=== PATIENT | female | born 1950 | race Caucasian/White ===

== ENCOUNTER → 2019-09-05 | Outpatient (REF) | payer MEDICARE, OTHER ==
[2019-09-05 12:45] LABS: BASO # 0.1 10^3/uL (0.0-0.2); BASO % 0.9 % (0.0-1.0); EOS # 0.8 10^3/uL (0.0-0.5); EOS % 8.6 % (0.0-3.0); HEMATOCRIT 47.5 % (36.0-47.0); HEMOGLOBIN 15.5 g/dl (12.0-15.5); LYMPH # 4.2 10^3/uL (1.5-5.0); MEAN CORPUSCULAR HEMOGLOBIN 30.9 pg (27.0-33.0); MEAN CORPUSCULAR HGB CONC 32.6 g/dl (32.0-36.5); MEAN CORPUSCULAR VOLUME 94.6 fl (80.0-96.0); MONO % 11.2 % (0.0-5.0); NEUTROPHILS # 2.9 10^3/uL (1.5-8.5); NEUTROPHILS % 32.2 % (36.0-66.0); PLATELET COUNT, AUTOMATED 305 10^3/uL (150-450); RED BLOOD COUNT 5.02 10^6/uL (4.00-5.40)
[2019-09-05 12:53] LABS: ALBUMIN 3.6 GM/DL (3.2-5.2); ALT/SGPT 43 U/L (12-78); BILIRUBIN,TOTAL 0.7 MG/DL (0.2-1.0); BLOOD UREA NITROGEN 10 MG/DL (7-18); C REACTIVE PROTEIN QUANTITATIV 0.57 MG/DL (0.00-0.30); CALCIUM LEVEL 9.3 MG/DL (8.8-10.2); CARBON DIOXIDE LEVEL 29 MEQ/L (21-32); CHLORIDE LEVEL 110 MEQ/L (98-107); COMPLEMENT C3 118 MG/DL (90-180); COMPLEMENT C4 22 MG/DL (10-40); CREATININE FOR GFR 0.82 MG/DL (0.55-1.30); GLOMERULAR FILTRATION RATE > 60.0 (>45); GLUCOSE, FASTING 109 MG/DL (70-100); POTASSIUM SERUM 4.1 MEQ/L (3.5-5.1); SODIUM LEVEL 142 MEQ/L (136-145)
[2019-09-05 13:04] LABS: APPEARANCE, URINE HAZY (CLEAR); BACTERIA, URINE AUTO 3+ (NEGATIVE); BILIRUBIN, URINE AUTO NEGATIVE (NEGATIVE); BLOOD, URINE BLOOD NEGATIVE (NEGATIVE); COLOR, URINE AMBER (YELLOW); GLUCOSE, URINE (UA) AUTO NEGATIVE (NEGATIVE); KETONE, URINE AUTO TRACE mg/dL (NEGATIVE); LEUKOCYTE ESTERASE, URINE AUTO NEGATIVE (NEGATIVE); MUCUS, URINE SMALL (NEGATIVE); NITRITE, URINE AUTO NEGATIVE (NEGATIVE); PROTEIN, URINE AUTO NEGATIVE (NEGATIVE); RBC, URINE AUTO 1 /HPF (0-3); SPECIFIC GRAVITY URINE AUTO 1.018 (1.002-1.035); SQUAMOUS EPITHELIAL CELL UR AU 3 /HPF (0-6); UROBILINOGEN, URINE AUTO 0.2 mg/dL (0.0-2.0); WBC, URINE AUTO 2 /HPF (0-3)
[2019-09-05 13:23] LABS: ERYTHROCYTE SEDIMENTATION RATE 13 mm/hr (0-30)
[2019-09-05 14:18] LABS: HEPATITIS B SURFACE ANTIGEN NEGATIVE (NEGATIVE)
[2019-09-05 14:46] LABS: HEPATITIS C VIRUS ABY INDEX < 0.0 INDEX (<0.8)
[2019-09-09 10:10] LABS: ANA (HEP2) Positive (.); ANTI DS-DNA AB Negative (Negative); BETA-2 GLYCOPROTEIN I ABY IGA <9 (0-25); BETA-2 GLYCOPROTEIN I ABY IGG <9 (0-20); BETA-2 GLYCOPROTEIN I ABY IGM <9 (0-32); CARDIOLIPIN IGA ANTIBODY <9 APL U/mL (0-11); CARDIOLIPIN IGG ANTIBODY 15 GPL U/mL (0-14); CARDIOLIPIN IGM ANTIBODY <9 MPL U/mL (0-12); CYCLIC CITRULLINATED PEPTIDE 11 units (0-19); HEPATITIS B CORE ANTIBODY IGG Negative (Negative); RNP ANTIBODY 0.3 AI (0.0-0.9); SMITHS ANTIBODY < 0.2 AI (0.0-0.9); SSA SJOGRENS A >8.0 AI (0.0-0.9); SSB SJOGRENS B <0.2 AI (0.0-0.9)
== END ==
LOC: M SFHCRHEU 10:09
PROVIDERS: ATTEND Internal Medicine
DX: M06.9 Rheumatoid arthritis, unspecified (principal); D68.61 Antiphospholipid syndrome; M32.9 Systemic lupus erythematosus, unspecified
CPT/HCPCS: 36415; 80053; 81001; 82570; 84156; 85025; 85652; 86038; 86140; 86146; 86147; 86160; 86200; 86225; 86235; 86255; 86431; 86480; 86704; 86803; 87340; G0463

== ENCOUNTER → 2020-09-11 | Outpatient (CLI) | payer MEDICARE, OTHER ==
[~2020-09-11] MED LIST: ASCO500T PO; BUTACAP78 PO; DOCU100C16 PO; DULO1CAP5 PO; FERR32TA PO; FEXO180T58 PO; GABA-1171 PO; GABA-845 PO; HYDR200T3 PO; LISI20TA33 PO; MAGN400T3 PO; MULTCAP PO; NADO20TA PO; NO ITAB PO; OYST500T12 PO; PANT40TA29 PO; POTA540T PO; REST0.05; WARF-20 PO; WARF4TAB52 PO; XIFA550T PO
== END ==
LOC: M LABSMTC 10:20
PROVIDERS: ATTEND Anesthesiology
DX: Z01.812 Encounter for preprocedural laboratory examination (principal); Z20.822 Contact with and (suspected) exposure to COVID-19

== ENCOUNTER 2020-09-16 10:18 | Day surgery (SDC) | payer MEDICARE, OTHER ==
[~2020-09-16] VITALS: Ht 147.3 cm; Wt 67.1 kg
[~2020-09-16 10:18] MED LIST changes: +CEFUROXIME 1MG/0.1ML INTRACAMERAL INJ As Ordered ONE; +DUOVISC (0.50ML VISCOAT/0.55ML PROVISC) OPHTH KIT As Ordered ONE; +MIDAZOLAM INJ 2MG/2ML VIAL (J2250 PER 1MG) As Ordered ONE; +OFLOXACIN 0.3 % (OCUFLOX) OPTH SOL 5ML OD ONE; +PHENYLEPHRINE 2.5% OPHTH SOL 2ML OD ONE; +POVIDONE-IODINE 5% OPHTH PREP SOL 30ML As Ordered ONE; +PROPARACAINE 0.5% OPHTH SOL 15ML OD ONE; +TROPICAMIDE 1% OPHTH SOLN 2ML OD ONE; +fentaNYL 100 MCG/2 ML INJECTION (J3010) As Ordered ONE
--- OUTSIDE RECORDS SUMMARY | 2020-09-16 10:24 | CCD ---
Author Author [facility] Organization [facility] Address Unknown Phone Unavailable Care Team Providers Care Vacuum Technician Name Role Phone Mayitobreanna Venkatesh Unavailable PROBLEMS Type Condition ICD9-CM Code RAN63-[id number] Code Onset Dates Condition S tatus SNOMED Code Notes Problem Antiphospholipid antibody syndrome D68.61 Activ e 37937831 Problem Rheumatoid arthritis involvi ng multiple sites, unspecified rheumatoid factor presence M06.9 Active 374334025 Problem Trigger middle finger of left hand M65.332 Activ e 735622326 Problem History of lupus M32.9 Active 124216829 Problem Systemic lupus erythematosus , unspecified SLE type, unspecified organ involvement status M32.9 Active 44912782 Problem Primary osteoarthritis involving multiple joints M 15.0 Active 340976888 Problem Fibromyalgia M79.7 Active 133300009 Problem Pain in left shoulder M25.512 Active 09689489 Problem Other chronic pain G89.29 Active 92509602 ALLERGIES Allergen (clinical drug ingredient) Drug/Non Drug Allergy do cumented on EMR Reaction Allergy Type Onset Date Status codeine Codeine Sulfate(NDC Code:[address]-46) Anaphylaxis Drug A llergy Active diazepam Valium(NDC Code:[address]-52) contraindications Drug Markie rgy Active Sulfa (for allergy use only) Anaphylaxis Drug Allergy Active ENCOUNTERS from 1950 to 2020-07-26 Encounter Location Date Provider Diagnosis [facility] Wound Care [address] [place] [address] Jul Venkatesh Coreas IMMUNIZATIONS No Information SOCIAL HISTORY Tobacco Use: Social History Observation Description Date Details (start date - stop date) Sex Assigned At : Social History Observation Description Sex Assigned At Unknown Alcohol Screening: Question Answer Notes Did you have a drink containing alcohol in the past year? Ye s Points 1 Interpretation Negative How often did you have six or more drinks on one occas ion in the past year? Never (0 points) How many drinks did you have on a typica l day when you were drinking in the past year? 1 or 2 (0 points) How often did you have a drink containing alcohol in t he past year? Monthly or less (1 point) Tobacco Use: Question Answer Notes Are you a: never smoker REASON FOR REFERRAL No Information VITAL SIGNS No information MEDICATIONS Medication SIG (Take, Route, Frequency, Duration) Notes Start Da te End Date Status Hydroxychloroquine Sulfate 200 MG 1 tab Oral twice daily Active Ferrous Gluconate 324 (38 Fe) MG 1 tablet with water o r juice between meals Oral Once a day Active Docusate Sodium 100 MG 1 capsule as needed Oral Daily Active Oyster Shell Calcium/D 500-200 MG-UNIT 1 tablet Oral Once a day Active Vitamin C 500 MG 1 tablet Oral Once a day Active Gabapentin 400 MG 1 capsule Orally Once a day for 30 day(s) Active Lisinopril 10 MG 1 tablet Oral Once a day Active Potassium Citrate ER 5 MEQ (540 MG) 1 tablet with meals Oral Daily Active Multi-Vitamins - 1 tablet Oral Once a day Active Dexilant 60 MG 1 capsule Oral Once a day Active Acetaminophen 325 MG 1 tablet as needed Oral every 4 hrs Active Duloxetine HCl 30 MG 1 capsule Oral Once a day Active Xifaxan 550 MG 1 tablet Oral Daily A ctive Warfarin Sodium 4 MG 1 tablet Oral Once a day Active Gabapentin 100 MG 1 tablet Oral twice daily Active Magnesium Oxide 400 (240 Mg) MG 1 tablet with food Oral Once a day Active Warfarin Sodium 3 MG 1 tablet Orally M, W, F, Sa, PRICE Active Fexofenadine HCl 180 MG 1 tablet as needed Oral Once a day Active PROCEDURES No Information RESULTS No Results REASON FOR VISIT Cancel WCC Apt. MEDICAL (GENERAL) HISTORY Type Description Date Medical History Arthritis Medical History Anemia Medical History Stroke Surgical History splenectomy Surgical History hysterectomy Surgical History neck surgery Surgical History cholecystectomy Surgical History knee surgery Surgical History foot surgery Surgical History breast reduction Surgical History nose surgery Goals Section No Information Health Concerns No Information MEDICAL EQUIPMENT No Information MENTAL STATUS No Information FUNCTIONAL STATUS No Information ASSESSMENTS No Information PLAN OF TREATMENT No Information Insurance Providers Payer Name Payer Address Payer Phone Insured Name Patient Relati onship to Insured Coverage Start Date Coverage End Date MEDICARE Part A and B [address] [facility] [id number] [place] [employer] [address] [facility] [id number] [place] self
--- OUTSIDE RECORDS SUMMARY | 2020-09-16 10:24 | CCD | Continuity of Care Document ---
Author Author Viridiana PARR MD Organization Unknown Address [address] [place] [address] Phone [phone] Care Team Providers Care Bone Drier Name Role Phone Jose R Church DO AUTM [phone] Problems Active Problems Provider Date Syncope and collapse Onset: Abdominal pain Onset: Essential hypertension Onset: Prediabetes Onset: Arthritis Onset: Gastroesophageal reflux disease Onset: 0 Hearing loss Onset: CVA - Cerebrovascular accident Onset: IBS - Irritable bowel syndrome Onset: Liver disease Onset: Osteoporosis Onset: Recurrent sinusitis Onset: Urinary incontinence Onset: Right bundle branch block Delia Marquez RN, BRAZER ASSEMBLER Onset: 03/02 History of cerebrovascular accident without residual d eficits Delia Marquez RN, BRAZER ASSEM[employer]ER Onset: 03/02/2020 Hypercoagulability state Roger Parr MD Onset: 09/07/19 21 Dyspnea Roger Parr MD Onset: 09/07/2020 Type 2 diabetes mellitus Roger Parr MD Onset: 09/07/19 21 Social History Type Date Description Comments Sex Unknown Tobacco Use Start: Unknown 1 cigarette per day x 10-15 yrs ETOH Use Occasionally consumes alcohol Recreational Drug Use Denies Drug Use Tobacco Use Start: Unknown End: Patient is a former smoker Smoking Status Reviewed: 09/07/20 Patient is a former smoker Allergies, Adverse Reactions, Alerts Active Allergies Reaction Severity Comments Date Aciphex 11/03/2019 Macrobid 11/03/2019 Sulfamethoxazole / Trimethoprim 11/03/2019 Valium 11/03/2019 Levaquin 11/03/2019 Codeine 11/03/2019 Sulfamethoxazole 11/03/2019 Flurazepam 11/03/2019 Demerol 11/03/2019 Inactive Allergies NKDA 11/03/2019 Medications Active Medications SIG Qnty Indications Ordering Provide r Date Docusate Sodium 100mg Capsules 1 by mouth every day Unknown Duloxetine HCL 30mg Caps DR Part 1 by mouth every day Unknown Fexofenadine HCL 180mg Tablets 1 by mouth every day Unknown Gabapentin 100mg Capsules 1 by mouth twice a day Unknown Gabapentin 400mg Capsules 1 by mouth every day Unknown Hydroxychloroquine Sulfate 200mg T ablets 1 by mouth twice a day Unknown Lisinopril 10mg Tablets 1 by mouth every day Unknown Magnesium Oxide 400mg Tablets 1 by mouth every day Unknown Multivitamin Adult Tablets 1 by mouth every day Unknown Nadolol 20mg Tablets 1 by mouth every day Unknown Warfarin Sodium 4mg Tablets as directed Unknown Potassium Citrate ER 10Meq (1080 mg) Tablets ER 1 tablet daily Unknown Rifaximin Powder 550mg daily Unknown Calcium Carbonate-Vitamin D [id number] Tablets 1 by mouth twice a day Unknown Warfarin Sodium 5mg Tablets as directed Unknown Fish Oil 500mg Capsules 1 by mouth daily Unknown Immunizations Description No Information Available Vital Signs Date Vital Result Comment 09/07/2020 1:31pm Height 57.5 inches 4'9.50" Weight 148.00 lb BMI (Body Mass Index) 31.5 kg/m2 03/02/2020 10:16am BP Systolic 178 mmHg BP Diastolic 82 mmHg Heart Rate 80 /min Height 57.5 inches 4'9.50" Weight 159.00 lb BMI (Body Mass Index) 33.8 kg/m2 Results Description No Information Available Procedures Description No Information Available Medical Devices Description No Information Available Encounters Description No Information Available Assessments Date Code Description Provider 09/07/2020 I10 Essential (primary) hypertension Roger Parr MD 09/07/2020 I45.19 Other right bundle-branch block Roger Parr MD 09/07/2020 Z86.73 Personal history of transient ischemic attack (TIA), and cerebral infarction without residual deficits Roger Parr MD 09/07/2020 D68.61 Antiphospholipid syndrome Roger Parr MD 09/07/2020 R06.02 Shortness of breath Roger holder MD 09/07/2020 E11.9 Type 2 diabetes mellitus without complications Roger Parr MD Plan of Treatment Future Appointment(s):* 09/08/2021 1:30 pm - [place] [facility] ([id number]) at [place] Office * 11/02/2020 9:30 am - [place] [facility] ([id number]) at [place] [facility] 09/07/2020 - Roger Parr MD* I10 Essential (primary) hypertension * I45.19 Other right bundle-branch block * Z86.73 Personal history of transient ischemic attack (TIA), and cerebral infarction without residual deficits * D68.61 Antiphospholipid syndrome * R06.02 Shortness of breath * E11.9 Type 2 diabetes mellitus without complications* New Labs:* CMP W/GFR, Scheduled: 09/07/20 * Lipid Panel, Scheduled: 09/07/20 * Hepatic Function Panel 6, Scheduled: 09/07/20 * Comments:* lipid profile if abnormal will consider statins discussed with patient lose weightfollow up one year * Recommendations:* Patient is a hypertensive vascular disease hypercoagulable state on anticoagulation, diastolic noncompliance obesity status post CVA tolerating rehabilitation fairly well. I've advised and encouraged patient to do regular exercise and weight loss reduction was suggested dietary instructions were discussed. At present time she appears to be doing fairly well and recovered from artery cerebrovascular event. I've advised patient to continue same therapy. We will be seeing her back in our [place] office in 1 year lipid profile will be obtained I discussed with patient and lipid is abnormal we'll initiate statin therapy. Thank you for having us participate in cardiac care of this pleasant lady Functional Status Description No Information Available Mental Status Description No Information Available Referrals Description No Information Available
--- OUTSIDE RECORDS SUMMARY | 2020-09-16 10:24 | CCD | Continuity of Care Document ---
Author Author Viridiana COTO DO Organization Unknown Address [address] [place] [address] Phone [phone] Care Team Providers Care Manager Of Purchasing Name Role Phone Jose R Church DrM [phone] Problems Active Problems Provider Date Cervical spondylosis with myelopathy Yan Coto DO Ons et: 12/25/2019 Degeneration of cervical intervertebral disc Yan Coto DO Onset: 12/25/2019 Social History Type Date Description Comments Sex Unknown ETOH Use Occasionally consumes alcohol Tobacco Use Start: Unknown Denies Tobacco Use Recreational Drug Use Denies Drug Use Allergies, Adverse Reactions, Alerts Active Allergies Reaction Severity Comments Date Codeine 12/25/2019 Diazepam 12/25/2019 Flurazepam 12/25/2019 Levofloxacin 12/25/2019 Medications Active Medications SIG Qnty Indications Ordering Provide r Date Medrol 4mg TBPK dispense 1 pack use as directed 1units Yan Coto DO 05/03/2020 Enoxaparin Sodium 80mg/0.8ML Solution Jose R Church Dr Voltaren 1% Gel Unknown Clindamycin HCL 300mg Capsules Jose R Church Dr Aspirin 81mg Tablets DR Unknown Deep Sea Nasal [place] 0.65% Solution Unknown Ferrous Gluconate 324(38Fe) mg Tablets Unknown Dexilant 60mg Capsules DR Unknown Gabapentin 100mg Capsules Unknown Lisinopril 10mg Tablets Unknown Restasis 0.05% Emulsion Jose R Church Dr Warfarin Sodium 4mg Tablets Jose R Church Dr Amoxicillin/Clavulanate Potassium 875-125mg Tablets Jose R Church Dr Acetaminophen 325mg Tablets Unknown Butalbital/Acetaminophen/Caffeine 50-325-40mg Tablets Jose R Church Dr Docusate Sodium 100mg Capsules Jose R Chruch Dr Duloxetine HCL 30mg Caps DR Part Unknown Fexofenadine HCL 180mg Tablets Unknown Gabapentin 400mg Capsules Jose R Church Dr Hydroxychloroquine Sulfate 200mg T ablets Jose R Church Dr Lisinopril 20mg Tablets Jose R Church Dr Magnesium Oxide 400(240Mg) mg Tablets Jose R Church Dr Multi-Vitamins Tablets Jose R Church Dr Nadolol 20mg Tablets Unknown Oyster Shell Calcium/D [id number] Tablets Jose R Church Dr Pantoprazole Sodium 40mg Tablets Jose R Lowry Dr Potassium Citrate ER 5Meq (540 mg) Tablets ER Unknown Vitamin C 500mg Tablets Jose R Church Dr Warfarin Sodium 3mg Tablets Jose R Church Dr Xifaxan 550mg Tablets Jose R Church Dr Medications Administered in Office Medication SIG Qnty Indications Ordering Provider Date Injection Triamcinolone Acetonide Per 10 MG Injection Yan Coto DO 02/02/20 20 Immunizations Description No Information Available Vital Signs Date Vital Result Comment 06/21/2020 10:13am BP Systolic 122 mmHg BP Diastolic 84 mmHg Respiratory Rate 16 /min Heart Rate 56 /min Pain Level 8 05/31/2020 12:05pm Height 57 inches 4'9" Weight 160.00 lb BMI (Body Mass Index) 34.6 kg/m2 Respiratory Rate 16 /min Pain Level 4 Results Description No Information Available Procedures Date Code Description Status 06/21/2020 23911 Injection For Nerve Block, Great er Occipital Nerve Completed 02/02/2020 60552 Injection For Nerve Block, Great er Occipital Nerve Completed Medical Devices Description No Information Available Encounters Type Date Location Provider Dx Diagnosis Office Visit 05/31/2020 12:45p Main Office Yan Coto DO M54.81 Occipital neuralgia Office Visit 04/23/2020 10:15a Main Office CAR[facility] Red M54.81 Occipital neuralgia M47.12 Other spondylosis with myelo janeth, cervical region M50.30 Other cervical disc degenera tion, unsp cervical region Office Visit 02/13/2020 2:00p Main Office CARI Red M54.81 Occipital neuralgia Assessments Date Code Description Provider 07/06/2020 M54.81 Occipital neuralgia Yan posadas, DO 06/21/2020 M54.81 Occipital neuralgia Yan matta, DO 05/31/2020 M54.81 Occipital neuralgia Ronal strong, [facility] 05/31/2020 M54.81 Occipital neuralgia Yan matta, DO 04/23/2020 M54.81 Occipital neuralgia Mikael Gehr, MS, Pac 04/23/2020 M54.81 Occipital neuralgia Ronal strong, [facility] 04/23/2020 M47.12 Other spondylosis with myelopath y, cervical region Mikael Gehr, MS, Pac 04/23/2020 M47.12 Other spondylosis with myelopath y, cervical region Ronal Tucker, [facility] 04/23/2020 M50.30 Other cervical disc degeneration , unspecified cervical region Mikael Gehr, [place], Pac 04/23/2020 M50.30 Other cervical disc degeneration , unspecified cervical region Ronal Tucker [facility] 02/13/2020 M54.81 Occipital neuralgia Ronal strong, [facility] 02/02/2020 M54.81 Occipital neuralgia Yan matta, Plan of Treatment Future Appointment(s):* 11/08/2020 9:30 am - [facility] at Main Office 07/06/2020 - Yan Coto DO* M54.81 Occipital neuralgia* Comments:* 69 year old female patient presents via tele med s/p Left Occipital Block. patient reprots that she had 100%. patient states that she recently fell and hurt her left arm. patient is doing well we recommedn she f/u in 3-4 months advised to call sooner if pain or symptoms worsen.I discussed the patients diagnosis with them went over imaging and made conservative recommendations. After discussion we together with the patient decided on a plan. I explained if any changes in neurological exam or progressive worsening of symptoms including but not limited to bowel and bladder they are to return sooner.I, Venkatesh Wilson, scribing for and in the presence of ALBERTINA Wyman. Functional Status Description No Information Available Mental Status Description No Information Available Referrals Description No Information Available
--- OUTSIDE RECORDS SUMMARY | 2020-09-16 10:24 | CCD ---
Author Author [facility] Organization [facility] Address Unknown Phone Unavailable Care Team Providers Care Rib Knitter Name Role Phone Mayitobreanna Venkatesh Unavailable PROBLEMS Type Condition ICD9-CM Code [id number] Code Onset Dates Condition S tatus SNOMED Code Notes Problem Antiphospholipid antibody syndrome D68.61 Activ e 99606231 Problem Rheumatoid arthritis involvi ng multiple sites, unspecified rheumatoid factor presence M06.9 Active 556218040 Problem Trigger middle finger of left hand M65.332 Activ e 088602819 Problem History of lupus M32.9 Active 731369191 Problem Systemic lupus erythematosus , unspecified SLE type, unspecified organ involvement status M32.9 Active 62268387 Problem Primary osteoarthritis involving multiple joints M 15.0 Active 107590870 Problem Fibromyalgia M79.7 Active 053724091 Problem Pain in left shoulder M25.512 Active 47453417 Problem Other chronic pain G89.29 Active 84476165 ALLERGIES Allergen (clinical drug ingredient) Drug/Non Drug Allergy do cumented on EMR Reaction Allergy Type Onset Date Status codeine Codeine Sulfate(NDC Code:[address]-94) Anaphylaxis Drug A llergy Active diazepam Valium(NDC Code:[address]-06) contraindications Drug Markie rgy Active Sulfa (for allergy use only) Anaphylaxis Drug Allergy Active ENCOUNTERS from 1950 to 2020-07-16 Encounter Location Date Provider Diagnosis [facility] Wound Care [address] [place] [address] Jul Venkatesh Coreas IMMUNIZATIONS No Information SOCIAL [...] Information RESULTS No Results REASON FOR VISIT VOLUNTEER RECRUITMENT COORDINATOR referral [facility] MEDICAL (GENERAL) HISTORY Type Description Date Medical [...] Information ASSESSMENTS No Information PLAN OF TREATMENT Next Appt Details Provider Name:Venkatesh Coreas, 01:00:00 PM, [address] [place], [address], Insurance Providers Payer Name Payer Address Payer Phone Insured Name Patient Relati onship to Insured Coverage Start Date Coverage End Date MEDICARE Part A and B [address] [facility] [id number] [place] [employer] [address] [facility] [phone] [place] self
--- OUTSIDE RECORDS SUMMARY | 2020-09-16 10:24 | CCD ---
Author Author [facility] Organization [facility] Address Unknown Phone Unavailable Care Team Providers Care Routing Clerk Name Role Phone Mayitobreanna Venkatesh Unavailable PROBLEMS Type Condition ICD9-CM Code ERV01-WD Code Onset Dates Condition S tatus SNOMED Code Notes Problem Antiphospholipid antibody syndrome D68.61 Activ e 62467341 Problem Rheumatoid arthritis involvi ng multiple sites, unspecified rheumatoid factor presence M06.9 Active 551988310 Problem Trigger middle finger of left hand M65.332 Activ e 372405866 Problem History of lupus M32.9 Active 628763434 Problem Systemic lupus erythematosus , unspecified SLE type, unspecified organ involvement status M32.9 Active 76641468 Problem Primary osteoarthritis involving multiple joints M 15.0 Active 275134091 Problem Fibromyalgia M79.7 Active 287601458 Problem Pain in left shoulder M25.512 Active 39020539 Problem Other chronic pain G89.29 Active 50245729 ALLERGIES Allergen (clinical drug ingredient) Drug/Non Drug Allergy do cumented on EMR Reaction Allergy Type Onset Date Status codeine Codeine Sulfate(NDC Code:[address]-64) Anaphylaxis Drug A llergy Active diazepam Valium(NDC Code:[address]-64) contraindications Drug Markie rgy Active Sulfa (for allergy use only) Anaphylaxis Drug Allergy Active ENCOUNTERS from 1950 to 2020-07-16 Encounter Location Date Provider Diagnosis [facility] Wound Care [address] [place] [address] Jul Venkatesh Coreas IMMUNIZATIONS No Information SOCIAL [...] Information RESULTS No Results REASON FOR VISIT Inital Apt. MEDICAL (GENERAL) HISTORY Type Description Date [...] Details Provider Name:Venkatesh Coreas, 01:00:00 PM, [address] [place], [address], Insurance Providers Payer Name Payer Address Payer Phone Insured Name Patient Relati onship to Insured Coverage Start Date Coverage End Date MEDICARE Part A and B [address] [facility] [phone] [place] [employer] [address] [facility] [phone] [place]
--- OUTSIDE RECORDS SUMMARY | 2020-09-16 10:24 | CCD | Continuity of Care Document ---
Author Author Viridiana COTO DO Organization Unknown Address [address] [place] [address] Phone [phone] Care Team Providers Care Tube Depatcher Name Role Phone Jose R Church DrM [phone] Problems Active Problems Provider Date Cervical spondylosis [...] 81mg Tablets DR Unknown Deep Sea Nasal [place] 0.65% Solution Unknown Ferrous Gluconate 324(38Fe) mg Tablets Unknown Dexilant 60mg Capsules DR Unknown Gabapentin 100mg Capsules Unknown Lisinopril 10mg Tablets Unknown Restasis 0.05% Emulsion Jose R Church Dr Warfarin Sodium 4mg Tablets Jose R Church Dr Amoxicillin/Clavulanate Potassium 875-125mg Tablets Jose R Church Dr Acetaminophen 325mg Tablets Unknown Butalbital/Acetaminophen/Caffeine 50-325-40mg Tablets Jose R Church Dr Docusate Sodium 100mg Capsules Jose R Church Dr Duloxetine HCL 30mg Caps DR Part Unknown Fexofenadine HCL 180mg Tablets Unknown Gabapentin 400mg Capsules Jose R Church Dr Hydroxychloroquine Sulfate 200mg T ablets Jose R Church Dr Lisinopril 20mg Tablets Jose R Church Dr Magnesium Oxide 400(240Mg) mg Tablets Jose R Church Dr Multi-Vitamins Tablets Jose R Church Dr Nadolol 20mg Tablets Unknown Oyster Shell Calcium/D [id number]-[id number] Tablets Jose R Church Dr Pantoprazole Sodium [...] Available Procedures Date Code Description Status 06/21/2020 05840 Injection For Nerve Block, Great er Occipital Nerve Completed 02/02/2020 86575 Injection For Nerve Block, Great er Occipital Nerve Completed Medical Devices Description No Information Available Encounters Type Date Location Provider Dx Diagnosis Office Visit 07/06/2020 10:00a Main Office Yan Coto, DO M54.81 Occipital neuralgia Office Visit 05/31/2020 12:45p Main Office Yan Coto, DO M54.81 Occipital neuralgia Office Visit 04/23/2020 10:15a Main Office Ronal Tucker [facility] M54.81 Occipital neuralgia M47.12 Other spondylosis with myelo janeth, cervical region M50.30 Other cervical disc degenera tion, unsp cervical region Office Visit 02/13/2020 2:00p Main Office Ronal Tucker [facility] M54.81 Occipital neuralgia Assessments Date Code Description Provider 07/06/2020 M54.81 Occipital neuralgia Mikael Gehr, [place], Pac 07/06/2020 M54.81 Occipital neuralgia Yan Karson posadas, DO 06/21/2020 M54.81 Occipital neuralgia Yan Karson posadas, DO 05/31/2020 M54.81 Occipital neuralgia Ronal strong, [facility] 05/31/2020 M54.81 Occipital neuralgia Yan Karson matta, DO 04/23/2020 M54.81 Occipital neuralgia Mikael Gehr, MS, Pac 04/23/2020 M54.81 Occipital neuralgia Ronal strong, [facility] 04/23/2020 M47.12 Other spondylosis with myelopath y, cervical region Mikael Gehr, MS, Pac 04/23/2020 M47.12 Other spondylosis with myelopath y, cervical region Ronal Tucker, [facility] 04/23/2020 M50.30 Other cervical disc degeneration , unspecified cervical region Mikael Gehr, [place], Pac 04/23/2020 M50.30 Other cervical disc degeneration , unspecified cervical region Ronal Tucker, [facility] 02/13/2020 M54.81 Occipital neuralgia Ronal strong, [facility] 02/02/2020 M54.81 Occipital neuralgia Yan Karson posadas, DO Plan of Treatment Future Appointment(s):* 11/08/2020 9:30 [...]
--- OUTSIDE RECORDS SUMMARY | 2020-09-16 10:25 | CCD | Continuity of Care Document ---
Author [facility] Address [address] [place] [address] Phone Support Name Relationship Address [place] [address] [place] [address] CORY BAGLEY PRS [address] [address] Apollo Valente PRS [address] [place] [address] Master Muñoz PRS [address] [place] [address] Love, Ross PRS [facility] [place] [address] EstephaniaDenisse kilpatrick PRS [address] [place] [address] YAN FERMIN PRS [facility] [place] [address] Anum Bender PRS [address] [place] [address] DAGOBERTO PARR PRS [address] [place] [address] [place] [address] Apollo Varela PRS [address] [place] [address] Allergies, Adverse Reactions, Alerts Allergen Type Severity Reaction Last Updated Verified Status codeine Allergy Unknown June 27, 2020 5:23pm Yes Active diazepam Allergy Unknown June 27, 2020 5:23pm Yes Active flurazepam Allergy Unkno wn June 27, 2020 5:23pm Yes Active levofloxacin Allergy Unk nown June 27, 2020 5:23pm Yes Active meperidine Allergy Unkno wn June 27, 2020 5:23pm Yes Active nitrofurantoin Allergy U nknown June 27, 2020 5:23pm Yes Active rabeprazole Allergy Unkn own June 27, 2020 5:23pm Yes Active Sulfa (Sulfonamide Antibiotics) Allergy Unknown June 27, 2020 5:23pm Yes Active Medications Medication Status Dose Units Route Directions Qty Days Start Date End Date Instructions tuberculin PPD Discontinued 0.1 ML ID 1 Time/Once 0.1 February 18, 2019 9:33am February 18, 2019 9:33am Aspirin (Adult Aspirin Regimen) 81 mg ta blet,delayed release (DR/EC) Active 81 MG PO daily February 18, 2019 9:53am Gabapentin Discontinued 400 MG PO daily February 18, 2019 9:53am March 10, 2019 8:24am Calcium Carbonate Discontinued 500 MG PO daily February 18, 2019 9:55am July 10, 2019 4:06pm Ferrous Gluconate Discontinued 324 MG PO daily February 18, 2019 10:22am February 20, 2020 12:04pm Hydroxychloroquine Discontinued 200 MG PO daily February 18, 2019 10:22am June 24, 2019 10:57am Lisinopril Discontinued 10 MG PO daily February 18, 2019 10:23am May 29, 2019 10:32am Nadolol Discontinued 20 MG PO daily February 18, 2019 10:24am September 04, 2019 1:25pm Fexofenadine Discontinued 180 MG PO Q24H February 18, 2019 10:26am August 12, 2019 11:32am Dexlansoprazole Discontinued 60 MG PO daily February 18, 2019 10:33am October 21, 2019 1:40pm Potassium Citrate Discontinued 5 MEQ PO daily February 18, 2019 10:34am August 12, 2019 11:32am Rifaximin Discontinued 5 50 MG PO 2 Times Per Day February 18, 2019 10:35am April 21, 2019 10:39am Hydroxychloroquine Discontinued 200 MG PO daily 90 June 24, 2019 10:57am June 24, 2019 11:36am Hydroxychloroquine Discontinued 200 MG PO 2 Times Per Day June 24, 2019 11:36am August 12, 2019 11:30am Afluria Qd (3yr up)(PF) (flu vac [id number] 36mos up(PF)) Discontinued 0.5 ML IM 1 Time/Once 0.5 May 12, 2019 11:18am May 5:41pm Lisinopril Active 20 MG PO daily October 21, 2019 1:39pm Pantoprazole (Protonix) 40 mg tablet,delayed release ( DR/EC) Active 40 MG PO daily October 21, 2019 1:40pm Amoxicillin-Pot Clavulanate (Augmentin) 875-125 mg tab let Discontinued 1 TAB PO 2 Times Per Day October 28, 2019 1:46pm November 25, 2019 9:01am Aifzeltxjd-Uwhdybcgntrvm-Dzuz Discontinued 1 CAP PO Q12H November 25, 2019 9: 00am February 20, 2020 12:04pm Afluria Qd (3yr up)(PF) (flu vac [id number] 36mos up(PF)) Discontinued 0.5 ML IM 1 Time/Once 0.5 June 14, 2020 10:09am June 14, 2020 3:39pm Duloxetine (Cymbalta) 30 mg capsule,delayed release(DR /EC) Active 30 MG PO daily June 14, 2020 10:15am Rifaximin Discontinued 5 50 MG PO Once Per Day June 14, 2020 10:16am June 14, 2020 10:35am Fexofenadine Active 180 MG PO Q24H June 14, 2020 10:34am Hydroxychloroquine Active 200 MG PO 2 Times Per Day June 14, 2020 10:34am Nadolol Active 20 MG PO daily June 14, 2020 10:34am Potassium Citrate Active 5 MEQ PO daily June 14, 2020 10:34am Rifaximin Active 550 MG PO Once Per Day June 14, 2020 10:34am Mupirocin Active 1 APPLIC TOP 2 Times Per Day June 24, 2020 12:31pm apply to outer elbow bid x 1 week Adhesive Bandage (Telfa Amd) 4 X 5 " bandage Active 0 .ROUTE .MEDSUPPLY June 24, 2020 12:31pm As directed- appl y to wound bid until healed with ointment Gauze Bandage (Band-Aid Rolled Gauze) 2 X 2.5 "-yard b andage Active 0 .ROUTE .MEDSUPPLY June 24, 2020 12:32pm As direc mariana- apply to affected area bid until healed Adhesive Tape Active 0 .ROUTE .MEDSUPPLY June 24, 2020 12:34pm As directed Amoxicillin-Pot Clavulanate Active 1 TAB PO 2 Times Per Day June 24, 2020 12:35pm Methylprednisolone (Medrol (Jarred)) 4 mg tablets,dose pa ck Discontinued 0 PO .COMPLEX May 02, 2020 9:02am June 14, 2020 10:15am orally per package directions Warfarin (Coumadin) 3 mg tablet Disc ontinued 3 MG PO December 23, 2018 8:28a m September 29, 2019 2:59pm Warfarin (Coumadin) 4 mg tablet Disc ontinued 4 MG PO ev eris other day January 02, 2019 7:55 am May 06, 2019 9:27am take every other day Cyclosporine (Restasis) 0.05 % dropperette Discontinued 1 DROPS BOTH EYES Q12H 60 January 10, 2019 6:41am April 19, 2020 3:33pm Please dispense individual doseages Duloxetine (Cymbalta) 30 mg capsule,delayed release(DR /EC) Discontinued 30 MG PO daily 30 February 12, 2019 4:20pm February 13, 2019 9:38am Duloxetine (Cymbalta) 30 mg capsule,delayed release(DR /EC) Discontinued 30 MG PO daily February 13, 2019 9:37am April 21, 2019 10:39am Warfarin (Coumadin) 1 mg tablet Disc ontinued 1 MG PO February 21, 2019 6:00 pm December 25, 2019 6:03pm Gabapentin Discontinued 100 MG PO 2 Times Per Day February 27, 2019 9:48am December 25, 2019 6:03pm Gabapentin Discontinued 400 MG PO daily 90 March 10, 2019 8:22am July 10, 2019 4:06pm Acetaminophen (Tylenol) 325 mg tablet Active 350 - 650 MG PO At Bedtime March 10, 2019 8:22am Clindamycin Hcl Discontinued 300 MG PO Four Times a Day 12 March 17, 2019 5 :18pm April 21, 2019 10:36am Duloxetine (Cymbalta) 30 mg capsule,delayed release(DR /EC) Discontinued 30 MG PO daily April 21, 2019 10:36am June 14, 2020 10:17am Rifaximin Discontinued 5 50 MG PO Once Per Day April 21, 2019 10:37am June 14, 2020 10:17am Magnesium Oxide Discontinued 400 MG PO daily April 21, 2019 10:37am April 19, 2020 3:33pm Docusate Sodium (Colace) 100 mg capsule Active 100 MG PO daily April 21 10:38am Multivitamin Active 1 TAB PO daily April 21, 2019 10:38am Warfarin (Coumadin) 4 mg tablet Disc ontinued 4 MG PO On ce Per Day May 06, 2019 9 :26am December 25, 2019 6:03pm Lisinopril Discontinued 10 MG PO daily May 29, 2019 10:31am October 21, 2019 1:39pm Calcium Carbonate Discontinued 500 MG PO daily July 10, 2019 4:05pm July 15, 2019 10:18am Gabapentin Discontinued 400 MG PO daily July 10, 2019 4:05pm December 25, 2019 6:03pm Calcium Carbonate-Vitamin D3 Active 1 TAB PO daily July 15, 2019 10:18am Hydroxychloroquine Discontinued 200 MG PO 2 Times Per Day August 12, 2019 11:30am June 14, 2020 10:35am Fexofenadine Discontinued 180 MG PO Q24H August 12, 2019 11:31am June 14, 2020 10:35am Potassium Citrate Discontinued 5 MEQ PO daily August 12, 2019 11:32am June 14, 2020 10:35am Nadolol Discontinued 20 MG PO daily September 04, 2019 1:25pm June 14, 2020 10:35am Ascorbate Calcium (Vitamin C) Active 500 MG PO daily September 25, 2019 6:49pm Warfarin (Coumadin) 3 mg tablet Disc ontinued 3 MG PO da jayy September 29, 2019 2:59pm October 22, 2019 2:52pm Warfarin (Coumadin) 4 mg tablet Active 4 MG PO Once Per Day December 25, 2019 6:01 pm Warfarin (Coumadin) 1 mg tablet Disc ontinued 1 MG PO As Directed (Daily) December 25, 2019 6:01pm December 26, 2019 6:21am Warfarin Discontinued 5 MG PO As Directed (Daily) 9 0 December 25, 2019 6:01pm December 26, 2019 6:21am Gabapentin Active 100 MG PO 2 Times Per Day December 25, 2019 6:02pm Gabapentin Active 400 MG PO daily December 25, 2019 6:03pm Warfarin Discontinued 5 MG PO As Directed (Daily) 9 December 26, 2019 6:20am March 22, 2020 3:12pm Warfarin (Coumadin) 1 mg tablet Active 1 MG PO Once Per Day December 26, 2019 6:20 am Enoxaparin (Lovenox) 80 mg/0.8 mL syringe Discontinued 70 MG SQ Q 12H 9.8 7 January 23, 2020 5: 04pm January 29, 2020 11:51am Enoxaparin (Lovenox) 80 mg/0.8 mL syringe Discontinued 70 MG SQ Q 12H 4.2 3 January 29, 2020 11 :51am January 31, 2020 11:00pm Warfarin Active 5 MG PO daily March 22, 2020 3:11pm Magnesium Oxide Active 4 00 MG PO daily April 19, 2020 3:33pm Cyclosporine (Restasis) 0.05 % dropperette Active 1 DROPS BOTH EYES Q12H 60 April 19, 2020 3:33pm Please dispense individu al doseages Cholecalciferol (Vitamin D3) Active 125 MCG PO daily June 14, 2020 5:16pm Problems Active Problems Medical Problem Onset Date Status Systemic lupus erythematosus, unspecified Active Rheumatoid arthritis A ctive Diabetes mellitus type 2 in obese Active History of IBS Active History of cervical spinal arthrodesis Active Antiphospholipid antibody syndrome Active Laceration Active Hearing deficit Active Essential (primary) hypertension Active Osteoporosis Active [place] Active senior living current use of anticoagulant Active Fibromyalgia Active Unspecified cirrhosis of liver Active Lymphocytosis Active Abnormal glucose Activ e Mild intermittent asthma Active Recurrent sinusitis Ac tive Active Acquired absence of spleen Active Abrasion Active GERD (gastroesophageal reflux disease) Active History of CVA (cerebrovascular accident) Active Falls Active Inactive/Resolved Problems Medical Problem Onset Date Status Prediabetes Resolved Procedures Procedure Date Performed Status CT Head without contrast June 272019 6:17pm completed CT Maxillofacial area w/o cont Novem 2019 6:17pm completed Xray Elbow complete LT June 6:17pm completed XRAY HIP LT 2-3 VIEW W/PELVIS Novemb er 2019 6:17pm completed XRAY HIP LT 2-3 VIEW W/PELVIS Novemb er 2019 11:57am completed Xray Elbow AP/LAT LT June 15, 2020 12:39pm completed Xray Foot Complete RT March 30, 2 020 2:08pm completed MRI Cervical without contrast December 302019 2:16pm completed Xray Cervical spine complete November 052019 10:05am completed CT Head without contrast October 28, 2019 11:59am completed CT C-Spine without contrast October 272019 11:59am completed Xray Hand Complete RT September 08, 2019 2:18pm completed Xray Hand Complete LT September 08, 2019 2:18pm completed Xray Shoulder complete LT September 082019 2:18pm completed Xray Knee Comp 4 or more RT September 08, 2019 2:18pm completed Xray Knee comp 4 or more LT ua2019 2:18pm completed Xray Lumbar spine complete September 08, 2019 2:17pm completed Relevant Diagnostic Tests and/or Laboratory Data Laboratory Results Test Date/Time Result Interpretation Reference Range Result Comment Performing Site INR International Normalized Ratio N ovember 2019 5:51pm 2.4 INR International Normalized Ratio N ovember 2019 8:45pm 3.8 INR International Normalized Ratio N ovember 2019 8:51am 3.5 INR International Normalized Ratio O ctober 2019 5:27pm 3.5 INR International Normalized Ratio O ctober 2019 7:39am 3.2 INR International Normalized Ratio O ctober 2019 7:45pm 4.1 INR International Normalized Ratio O ctober 2019 2:50pm 3.4 INR International Normalized Ratio O ctober 2019 8:14am 3.9 INR International Normalized Ratio S eptember 2019 2:13pm 5.5 INR International Normalized Ratio S eptember 2019 8:57am 3.5 INR International Normalized Ratio S eptember 2019 9:22am 4.0 INR International Normalized Ratio S eptember 2019 12:00pm 3.2 INR International Normalized Ratio A ugust 2019 7:14am 3.7 INR International Normalized Ratio A ugust 2019 1:21pm 3.0 INR International Normalized Ratio A ugust 2019 4:33pm 3.9 INR International Normalized Ratio A ugust 2019 7:22pm 3.1 INR International Normalized Ratio J mireille 2019 10:51am 2.4 INR International Normalized Ratio J mireille 2019 5:20pm 2.8 INR International Normalized Ratio J mireille 2019 7:37am 3.2 INR International Normalized Ratio J mireille 2019 12:33pm 2.8 INR International Normalized Ratio J une 2019 8:40am 1.1 INR International Normalized Ratio J une 2019 7:53am 1.4 INR International Normalized Ratio J une 2019 8:53am 3.2 INR International Normalized Ratio J une 2019 3:59pm 1.5 INR International Normalized Ratio J une 2019 8:27am 2.7 INR International Normalized Ratio J une 2019 8:58am 2.8 INR International Normalized Ratio M ay 2019 9:36am 1.8 INR International Normalized Ratio M ay 2019 7:35pm 1.5 INR International Normalized Ratio A pril 2019 10:44am 1.4 INR International Normalized Ratio A pril 2019 7:20pm 2.6 INR International Normalized Ratio A pril 2019 9:47am 3.1 INR International Normalized Ratio A pril 2019 7:53am 2.7 INR International Normalized Ratio M arch 2019 8:34am 3.5 INR International Normalized Ratio M arch 2019 7:47am 2.6 INR International Normalized Ratio M arch 2019 7:57am 2.3 INR International Normalized Ratio M arch 2019 11:17am 2.1 INR International Normalized Ratio F ebruary 2019 4:24pm 2.1 INR International Normalized Ratio F ebruary 2019 2:55pm 2.1 INR International Normalized Ratio F ebruary 2019 3:58pm 2.2 INR International Normalized Ratio F ebruary 2019 2:06pm 3.7 INR International Normalized Ratio J anuary 2019 8:48am 3.5 INR International Normalized Ratio J anuary 2019 7:43am 2.6 Capillary INR August 15, 2019 4:08pm 3.4 Capillary INR August 07, 2019 4:22pm 3.9 Capillary INR August 01, 2019 9:25am 3.3 Capillary INR July 26, 2019 10:01am 3.3 Capillary INR July 19, 2019 6:42pm 3.3 Capillary INR July 10, 2019 8:20pm 3.1 Capillary INR July 04, 2019 9:36am 2.7 Glucose Level March 08, 2020 10:35am 114 White Blood Count June 11, 2020 11:35am 9.2 10e3/uL 4.45-10.71 [facility], [address] [place] [address] White Blood Count May 10, 2020 11:50a m 14.1 10e3/uL 4.45-10.71 [facility], [address] [place] [address] White Blood Count December 17, 2019 11:22am 10.9 10e3/uL 4.45-10.71 [facility], [address] [place] [address] White Blood Count November 24, 2019 8:21am 8.8 10e3/uL 4.45-10.71 [facility], [address] [place] [address] White Blood Count November 21, 2019 2:36pm 10.1 10e3/uL 4.45-10.71 [facility], [address] [place] [address] White Blood Count October 22, 2019 3:45pm 14.4 10e3/uL 4.45-10.71 [facility], [address] [place] [address] Red Blood Count June 11, 2020 11:35am 4.74 10e6/uL 4.20-5.40 [facility], [address] [place] [address] Red Blood Count May 10, 2020 11:50am 4.64 10e6/uL 4.20-5.40 [facility], [address] [place] [address] Red Blood Count December 17, 2019 11:22am 4.56 10e6/uL 4.20-5.40 [facility], [address] [place] [address] Red Blood Count November 24, 2019 8:21am 4.39 10e6/uL 4.20-5.40 [facility], [address] [place] [address] Red Blood Count November 21, 2019 2:36pm 4.50 10e6/uL 4.20-5.40 [facility], [address] [place] [address] Red Blood Count October 22, 2019 3:45pm 5.04 10e6/uL 4.20-5.40 [facility], [address] [place] [address] Hemoglobin June 11, 2020 11:35am 14.6 g/dL 10.7-15.4 [facility], [address] [place] [address] Hemoglobin May 10, 2020 11:50am 14.2 g/dL 10.7-15.4 [facility], [address] [place] [address] Hemoglobin December 17, 2019 11:22am 14.5 g/dL 10.7-15.4 [facility], [address] [place] [address] Hemoglobin November 24, 2019 8:21am 14.0 g/dL 10.7-15.4 [facility], [address] [place] [address] Hemoglobin November 21, 2019 2:36pm 14.2 g/dL 10.7-15.4 [facility], [address] [place], [place] [id number] Hemoglobin October 22, 2019 3:45pm 15.9 g/dL 10.7-15.4 [facility], [address] [place], [place] [id number] Hematocrit June 11, 2020 11:35am 44.6 % 37-47 [facility], [address] [place] [address] Hematocrit May 10, 2020 11:50am 42.5 % 37-47 [facility], [address] [place] [address] Hematocrit December 17, 2019 11:22am 43.5 % 37-47 [facility], [address] [place] [address] Hematocrit November 24, 2019 8:21am 41.1 % 37-47 [facility], [address] [place] [address] Hematocrit November 21, 2019 2:36pm 42.1 % 37-47 [facility], [address] [place] [address] Hematocrit October 22, 2019 3:45pm 47.4 % 37-47 [facility], [address] [place], [place] [id number] Mean Corpuscular Volume June 11:35am 94.1 fl 80[facility], [address] [place] [address] [id number] Mean Corpuscular Volume May 10, 2020 11:50am 91.6 fl 80[facility], [address] [place] [address] [id number] Mean Corpuscular Volume December 16 11:22am 95.4 fl 80[facility], [address] [place] [address] 90554 Mean Corpuscular Volume November 24, 2019 8:21am 93.6 fl 80[facility], [address] [place] [address] 81753 Mean Corpuscular Volume November 21, 2019 2:36pm 93.6 fl 80[facility], [address] [place] [address] [id number] Mean Corpuscular Volume October 22, 2019 3:45pm 94.0 fl [facility], [address] [place] [address] 24141 Mean Corpuscular Hemoglobin June 11, 2020 11:35am 30.8 pg 27-31 [facility], [address] [place] [address] 08356 Mean Corpuscular Hemoglobin May 10, 2020 11:50am 30.6 pg 27-31 [facility], [address] [place] [address] 42939 Mean Corpuscular Hemoglobin December 11:22am 31.8 pg 27-31 [facility], [address] [place] [address] 40559 Mean Corpuscular Hemoglobin November 232019 8:21am 31.9 pg 27-31 [facility], [address] [place] [address] 43506 Mean Corpuscular Hemoglobin November 202019 2:36pm 31.6 pg 27-31 [facility], [address] [place] [address] [id number] Mean Corpuscular Hemoglobin October 212019 3:45pm 31.5 pg 27-31 [facility], [address] [place] [address] [id number] Mean Corpuscular Hemoglobin Concent June 11, 2020 11:35am 32.7 g/dl 33-37 [facility], [address] [place] [address] [id number] Mean Corpuscular Hemoglobin Concent May 10, 2020 11:50am 33.4 g/dl 3337 [facility], [address] [place] [address] Mean Corpuscular Hemoglobin Concent December 17, 2019 11:22am 33.3 g/dl 37 [facility], [address] [place] [address] Mean Corpuscular Hemoglobin Concent November 24, 2019 8:21am 34.1 g/dl [address] [facility], [address] [place] [address] Mean Corpuscular Hemoglobin Concent November 21, 2019 2:36pm 33.7 g/dl [address] [place] [address] LABORATORY, [address] [place] [address] Mean Corpuscular Hemoglobin Concent October 22, 2019 3:45pm 33.5 g/dl [facility], [address] [place] [address] Red Cell Distribution Width June 11, 2020 11:35am 16 % 11-15 [facility], [address] [place] [address] Red Cell Distribution Width May 10, 2020 11:50am 16 % 11-15 [facility], [address] [place] [address] Red Cell Distribution Width December 11:22am 16 % 11-15 [facility], [address] [place] [address] Red Cell Distribution Width November 232019 8:21am 16 % 11-15 [facility], [address] [place] [address] Red Cell Distribution Width November 202019 2:36pm 16 % 11-15 [facility], [address] [place] [address] Red Cell Distribution Width October 212019 3:45pm 16 % 11-15 [facility], [address] [place] [address] Platelet Count June 11, 2020 11:35am 329 10e3/ul 130-472 [facility], [address] [place] [address] Platelet Count May 10, 2020 11:50am 363 10e3/ul 130-472 [facility], [address] [place] [address] Platelet Count December 17, 2019 11:22am 289 10e3/ul 130-472 [facility], [address] [place] [address] Platelet Count November 24, 2019 8:21am 304 10e3/ul 130-472 [facility], [address] [place] [address] [id number] Platelet Count November 21, 2019 2:36pm 303 10e3/ul 130-472 [facility], [address] [place] [address] [id number] Platelet Count October 22, 2019 3:45pm 280 10e3/ul 130-472 [facility], [address] [place] [address] 35707 Mean Platelet Volume June 11 020 11:35am 10.3 fl 9.1-13.1 [facility], [address] [place] [address] Mean Platelet Volume May 10 11:50am 10.4 fl 9.1-13.1 [facility], [address] [place] [address] Mean Platelet Volume December 17, 2019 11:22a m 10.9 fl 9.1-13.1 [facility], [address] [place] [address] [id number] Mean Platelet Volume November 23 0 8:21am 11.1 fl 9.1-13.1 [facility], [address] [place] [address] 42289 Mean Platelet Volume November 20 0 2:36pm 10.5 fl 9.1-13.1 [facility], [address] [place] [address] Mean Platelet Volume October 21 0 3:45pm 10.7 fl 9.1-13.1 [facility], [address] [place] [address] [id number] Neutrophils (%) (Auto) June 11, 2020 11:35am 31.9 % [address] [place] [address] LABORATORY, [address] [place] [address] [id number] Neutrophils (%) (Auto) May 10, 2020 11:50am 51.9 % [address] [facility], [address] [place] [address] [id number] Neutrophils (%) (Auto) December 16 0 11:22am 31.6 % [address] [place] [address] LABORATORY, [address] [place] [address] [id number] Neutrophils (%) (Auto) November 23, 020 8:21am 36.7 % [address] [place] [address] LABORATORY, [address] [place] [address] [id number] Neutrophils (%) (Auto) November 20, 020 2:36pm 31.8 % [address] [place] [address] LABORATORY, [address] [place] [address] [id number] Neutrophils (%) (Auto) October 21, 020 3:45pm 57.6 % 41-77 [facility], [address] [place] [address] 12960 Absolute Neutrophil June 11 11:35am 2.9 # 1.7-7.6 [facility], [address] [place] [address] 47069 Absolute Neutrophil May 10 0 11:50am 7.3 # 1.7-7.6 [facility], [address] [place] [address] Absolute Neutrophil December 17, 2019 11:22am 3.4 # 1.7-7.6 [facility], [address] [place] [address] Absolute Neutrophil November 24, 2019 8:21a m 3.2 # 1.7-7.6 [facility], [address] [place] [address] [id number] Absolute Neutrophil November 21, 2019 2:36p m 3.2 # 1.7-7.6 [facility], [address] [place] [address] Absolute Neutrophil October 22, 2019 3:45p m 8.3 # 1.7-7.6 [facility], [address] [place] [address] [id number] Lymphocytes (%) (Auto) June 11, 2020 11:35am 50.4 % 14-46 [facility], [address] [place] [address] [id number] Lymphocytes (%) (Auto) May 10, 2020 11:50am 33.3 % 14-46 [facility], [address] [place] [address] Lymphocytes (%) (Auto) December 16 0 11:22am 50.2 % 14-46 [facility], [address] [place] [address] [id number] Lymphocytes (%) (Auto) November 23 8:21am 41.0 % 14-46 [facility], [address] [place] [address] Lymphocytes (%) (Auto) November 20 020 2:36pm 47.7 % 14-46 [facility], [address] [place] [address] [id number] Lymphocytes (%) (Auto) October 21 020 3:45pm 27.0 % 14-46 [facility], [address] [place] [address] [id number] Lymphocytes # (Auto) June 11, 020 11:35am 4.6 # 0.6-4.6 [facility], [address] [place] [address] [id number] Lymphocytes # (Auto) May 10 11:50am 4.7 # 0.6-4.6 [facility], [address] [place] [address] 55529 Lymphocytes # (Auto) December 17, 2019 11:22a m 5.5 # 0.6-4.6 [facility], [address] [place] [address] 23512 Lymphocytes # (Auto) November 23 0 8:21am 3.6 # 0.6-4.6 [facility], [address] [place] [address] [id number] Lymphocytes # (Auto) November 20 0 2:36pm 4.8 # 0.6-4.6 [facility], [address] [place] [address] 85294 Lymphocytes # (Auto) October 21 0 3:45pm 3.9 # 0.6-4.6 [facility], [address] [place] [address] 43583 Monocytes (%) (Auto) June 11, 020 11:35am 11.9 % 4-12 [facility], [address] [place] [address] [id number] Monocytes (%) (Auto) May 10 11:50am 13.1 % 4-12 [facility], [address] [place] [address] 53871 Monocytes (%) (Auto) December 17, 2019 11:22a m 12.0 % 4-12 [facility], [address] [place] [address] [id number] Monocytes (%) (Auto) November 23 0 8:21am 11.4 % 4-12 [facility], [address] [place] [address] [id number] Monocytes (%) (Auto) November 20 0 2:36pm 10.8 % 4-12 [facility], [address] [place] [address] [id number] Monocytes (%) (Auto) October 21 0 3:45pm 8.4 % 4-12 [facility], [address] [place] [address] [id number] Monocytes # June 11, 2020 11:35am 1.1 # 0.2-1.2 [facility], [address] [place] [address] 91006 Monocytes # May 10, 2020 11:50am 1.9 # 0.2-1.2 [facility], [address] [place] [address] [id number] Monocytes # December 17, 2019 11:22am 1.3 # 0.2-1.2 [facility], [address] [place] [address] [id number] Monocytes # November 24, 2019 8:21am 1.0 # 0.2-1.2 [facility], [address] [place] [address] 07893 Monocytes # November 21, 2019 2:36pm 1.1 # 0.2-1.2 [facility], [address] [place] [address] 32404 Monocytes # October 22, 2019 3:45pm 1.2 # 0.2-1.2 [facility], [address] [place] [address] [id number] Eosinophils (%) (Auto) June 11, 2020 11:35am 4.9 % 0-7 [facility], [address] [place] [address] [id number] Eosinophils (%) (Auto) May 10, 2020 11:50am 1.0 % 0-7 [facility], [address] [place] [address] 62826 Eosinophils (%) (Auto) December 16 0 11:22am 5.1 % 0-7 [facility], [address] [place] [address] [id number] Eosinophils (%) (Auto) November 23, 020 8:21am 9.8 % 0-7 [facility], [address] [place] [address] 76724 Eosinophils (%) (Auto) November 20, 020 2:36pm 8.6 % 0-7 [facility], [address] [place] [address] 28132 Eosinophils (%) (Auto) October 21, 020 3:45pm 5.9 % 0-7 [facility], [address] [place] [address] 29827 Absolute Eosinophils (CBC) June 11, 2020 11:35am 0.5 # 0.0-0.5 [facility], [address] [place] [address] 53796 Absolute Eosinophils (CBC) May 102019 11:50am 0.1 # 0.0-0.5 [facility], [address] [place] [address] 30446 Absolute Eosinophils (CBC) December 17, 2019 11:22am 0.6 # 0.0-0.5 [facility], [address] [place] [address] Absolute Eosinophils (CBC) November 8:21am 0.9 # 0.0-0.5 [facility], [address] [place] [address] 19411 Absolute Eosinophils (CBC) November 2:36pm 0.9 # 0.0-0.5 [facility], [address] [place] [address] Absolute Eosinophils (CBC) October 3:45pm 0.8 # 0.0-0.5 [facility], [address] [place] [address] Basophils (%) (Auto) June 11 020 11:35am 0.8 % 0.4-1.3 [facility], [address] [place] [address] 48509 Basophils (%) (Auto) May 10 11:50am 0.3 % 0.4-1.3 [facility], [address] [place] [address] Basophils (%) (Auto) December 17, 2019 11:22a m 0.9 % 0.4-1.3 [facility], [address] [place] [address] Basophils (%) (Auto) November 23 0 8:21am 0.9 % 0.4-1.3 [facility], [address] [place] [address] 62436 Basophils (%) (Auto) November 20 0 2:36pm 1.0 % 0.4-1.3 [facility], [address] [place] [address] Basophils (%) (Auto) October 21 0 3:45pm 0.8 % 0.4-1.3 [facility], [address] [place] [address] 19856 Absolute Basophils (CBC) June 11:35am 0.1 # 0.0-0.2 [facility], [address] [place] [address] 81191 Absolute Basophils (CBC) May 11:50am 0.0 # 0.0-0.2 [facility], [address] [place] [address] Absolute Basophils (CBC) December 16 11:22am 0.1 # 0.0-0.2 [facility], [address] [place] [address] Absolute Basophils (CBC) November 24, 2019 8:21am 0.1 # 0.0-0.2 [facility], [address] [place] [address] 84946 Absolute Basophils (CBC) November 21, 2019 2:36pm 0.1 # 0.0-0.2 [facility], [address] [place] [address] 07855 Absolute Basophils (CBC) October 22, 2019 3:45pm 0.1 # 0.0-0.2 [facility], [address] [place] [address] 67909 Immature Granulocyte % (Auto) Novemb 2019 11:35am 0.1 % 0-2 [facility], [address] [place] [address] 35778 Immature Granulocyte % (Auto) Oct2019 11:50am 0.4 % 0-2 [facility], [address] [place] [address] 26995 Immature Granulocyte % (Auto) December 162019 11:22am 0.2 % 0-2 [facility], [address] [place] [address] 81798 Immature Granulocyte % (Auto) November 24, 2019 8:21am 0.2 % 0-2 [facility], [address] [place] [address] 21615 Immature Granulocyte % (Auto) November 21, 2019 2:36pm 0.1 % 0-2 [facility], [address] [place] [address] [id number] Immature Granulocyte % (Auto) October 22, 2019 3:45pm 0.3 % 0-2 [facility], [address] [place] [address] 71668 Absolute Immature Granulocyte (auto June 11, 2020 11:35am 0.0 # 0-0.1 [facility], [address] [place] [address] 39441 Absolute Immature Granulocyte (auto May 10, 2020 11:50am 0.1 # 0-0.1 [facility], [address] [place] [address] 04400 Absolute Immature Granulocyte (auto December 17, 2019 11:22am 0.0 # 0-0.1 [facility], [address] [place] [address] 34993 Absolute Immature Granulocyte (auto November 24, 2019 8:21am 0.0 # 0-0.1 [facility], [address] [place] [address] 73651 Absolute Immature Granulocyte (auto November 21, 2019 2:36pm 0.0 # 0-0.1 [facility], [address] [place] [address] 58018 Absolute Immature Granulocyte (auto October 22, 2019 3:45pm 0.0 # 0-0.1 [facility], [address] [place] [address] 32817 Add Manual Differential June 11:35am No [facility], [address] [place] [address] 24503 Add Manual Differential May 10, 2020 11:50am No [facility], [address] [place] [address] 61772 Add Manual Differential December 16 11:22am Manual diff added [facility], [address] [place] [address] 37245 Add Manual Differential November 24, 2019 8:21am No [facility], [address] [place] [address] 74598 Add Manual Differential November 21, 2019 2:36pm No [facility], [address] [place] [address] 37683 Add Manual Differential October 22, 2019 3:45pm No [facility], [address] [place] [address] 67657 Blood Smear Pathologist Review December 042019 11:22am Ssr [facility], [address] [place] [address] 45245 Differential Total Cells Counted December 17, 2019 11:22am 100 [facility], [address] [place] [address] 30081 Neutrophils (Manual) December 17, 2019 11:22a m 30 % 41-77 [facility], [address] [place] [address] 76980 Lymphocytes (Manual) December 17, 2019 11:22a m 55 % 14-46 [facility], [address] [place] [address] 12110 Monocytes (Manual) December 17, 2019 11:22am 11 % 4-12 [facility], [address] [place] [address] 43848 Eosinophils (Manual) December 17, 2019 11:22a m 4 % 0-7 [facility], [address] [place] [address] 17329 Platelet Estimate December 17, 2019 11:22am Appears normal NORMAL [facility], [address] [place] [address] 08065 RBC Morphology 2 December 17, 2019 11:22am Appears normal NORMAL [facility], [address] [place] [address] 56493 Sedimentation Rate, Janiergren November 21, 2019 2:36pm 20 mm/hr 0-30 [facility], [address] [place] [address] 75159 Prothrombin Time February 05, 2020 12:05pm 24.3 SECONDS 9.6-12.3 [facility], [address] [place] [address] Prothrombin Time December 22, 2019 1:15pm 26.4 SECONDS 9.6-12.3 [facility], [address] [place] [address] Prothrombin Time December 17, 2019 11:22am 18.6 SECONDS 9.6-12.3 [facility], [address] [place] [address] Prothrombin Time October 22, 2019 3:45pm 25.2 SECONDS 9.6-12.3 [facility], [address] [place] [address] INR International Normalized Ratio [facility] 12:05pm 2.4 0.9-1.1 THE INR IS OPERATIONALLY DEFINED FOR ALEXIS PLASMA FROMPATIENTS STABILIZED ON ORAL ANTICOAGULANTS. ROUTINE ANTICOAGULANT THERAPY 2.0-3.0RECURRENT SYSTEMIC EMBOLISM/HEART VALVE REPLACEMENT 2.5-3.5 [facility], [address] [place] [address] INR International Normalized Ratio [facility] 2019 1:15pm 2.7 0.9-1.1 THE INR IS OPERATIONALLY DEFINED FOR FRESH PLASMA FROMPATIENTS STABILIZED ON ORAL ANTICOAGULANTS. ROUTINE ANTICOAGULANT THERAPY 2.0-3.0RECURRENT SYSTEMIC EMBOLISM/HEART VALVE REPLACEMENT 2.5-3.5 [facility], [address] [place] [address] 60155 INR International Normalized Ratio [facility] 2019 11:22am 1.9 0.9-1.1 THE INR IS OPERATIONALLY DEFINED FOR ALEXIS SH PLASMA FROMPATIENTS STABILIZED ON ORAL ANTICOAGULANTS. ROUTINE ANTICOAGULANT THERAPY 2.0-3.0RECURRENT SYSTEMIC EMBOLISM/HEART VALVE REPLACEMENT 2.5-3.5 [facility], [address] [place] [address] [id number] INR International Normalized Ratio [facility] 2019 3:45pm 2.6 0.9-1.1 THE INR IS OPERATIONALLY DEFINED FOR ALEXIS SH PLASMA FROMPATIENTS STABILIZED ON ORAL ANTICOAGULANTS. ROUTINE ANTICOAGULANT THERAPY 2.0-3.0RECURRENT SYSTEMIC EMBOLISM/HEART VALVE REPLACEMENT 2.5-3.5 [facility], [address] [place] [address] 74450 Partial Thromboplastin Time - Kent M 2019 3:45pm 35.7 SECONDS 22.7-31.6 [facility], [address] [place] [address] Blood Urea Nitrogen June 11 11:35am 9 mg/dL 04-28 [facility], [address] [place] [address] Blood Urea Nitrogen May 10 0 11:50am 15 mg/dL 04-28 [facility], [address] [place] [address] Blood Urea Nitrogen November 24, 2019 8:21a m 8 mg/dL 04-28 [facility], [address] [place] [address] Blood Urea Nitrogen November 21, 2019 2:36p m 10 mg/dL 04-28 [facility], [address] [place] [address] Blood Urea Nitrogen October 22, 2019 3:45p m 9 mg/dL 04-28 [facility], [address] [place] [address] 34940 Sodium Level June 11, 2020 11:35am 144 mmol/L 132-146 [facility], [address] [place] [address] 95274 Sodium Level May 10, 2020 11:50am 142 mmol/L 132-146 [facility], [address] [place] [address] 90836 Sodium Level November 24, 2019 8:21am 144 mmol/L 132-146 [facility], [address] [place] [address] Sodium Level November 21, 2019 2:36pm 144 mmol/L 132-146 [facility], [address] [place] [address] 61407 Sodium Level October 22, 2019 3:45pm 145 mmol/L 132-146 [facility], [address] [place] [address] 13805 Potassium Level June 11, 2020 11:35am 4.0 mmol/L 3.5-5.5 [facility], [address] [place] [address] 67626 Potassium Level May 10, 2020 11:50am 4.3 mmol/L 3.5-5.5 [facility], [address] [place] [address] Potassium Level November 24, 2019 8:21am 3.9 mmol/L 3.5-5.5 [facility], [address] [place] [address] 85328 Potassium Level November 21, 2019 2:36pm 4.6 mmol/L 3.5-5.5 [facility], [address] [place] [address] 88346 Potassium Level October 22, 2019 3:45pm 4.7 mmol/L 3.5-5.5 [facility], [address] [place] [address] 61941 Chloride Level June 11, 2020 11:35am 109 mmol/l 99-109 [facility], [address] [place] [address] 30992 Chloride Level May 10, 2020 11:50am 108 mmol/l 99-109 [facility], [address] [place] [address] 44840 Chloride Level November 24, 2019 8:21am 112 mmol/l 99-109 [facility], [address] [place] [address] 28159 Chloride Level November 21, 2019 2:36pm 109 mmol/l 99-109 [facility], [address] [place] [address] 08472 Chloride Level October 22, 2019 3:45pm 109 mmol/l 99-109 [facility], [address] [place] [address] 79821 Carbon Dioxide Level June 11 11:35am 32 mmol/l -31 [facility], [address] [place] [address] 17588 Carbon Dioxide Level May 10 20 11:50am 29 mmol/l 20-31 [facility], [address] [place] [address] 65919 Carbon Dioxide Level November 23 0 8:21am 27 mmol/l -31 [facility], [address] [place] [address] 56678 Carbon Dioxide Level November 20 0 2:36pm 31 mmol/l -31 [facility], [address] [place] [address] 32867 Carbon Dioxide Level October 21 0 3:45pm 30 mmol/l 20-31 [facility], [address] [place] [address] 11805 Anion Gap June 11, 2020 11:35am 7 mmol/l -16 [facility], [address] [place] [address] 23048 Anion Gap May 10, 2020 11:50am 9 mmol/l 8-16 [facility], [address] [place] [address] Anion Gap November 24, 2019 8:21am 9 mmol/l 03-21 [facility], [address] [place] [address] Anion Gap November 21, 2019 2:36pm 9 mmol/l 03-21 [facility], [address] [place] [address] Anion Gap October 22, 2019 3:45pm 11 mmol/l 03-21 [facility], [address] [place] [address] Glucose Level June 11, 2020 11:35am 79 mg/dL 74-106 [facility], [address] [place] [address] Glucose Level May 10, 2020 11:50am 137 mg/dL 74-106 [facility], [address] [place] [address] Glucose Level November 24, 2019 8:21am 111 mg/dL 74-106 [facility], [address] [place] [address] Glucose Level November 21, 2019 2:36pm 113 mg/dL 74-106 [facility], [address] [place] [address] Glucose Level October 22, 2019 3:45pm 98 mg/dL 74-106 [facility], [address] [place] [address] Creatinine June 11, 2020 11:35am 0.7 mg/dL 0.5-1.1 [facility], [address] [place] [address] Creatinine May 10, 2020 11:50am 0.7 mg/dL 0.5-1.1 [facility], [address] [place] [address] Creatinine November 24, 2019 8:21am 0.7 mg/dL 0.5-1.1 [facility], [address] [place] [address] Creatinine November 21, 2019 2:36pm 0.7 mg/dL 0.5-1.1 [facility], [address] [place] [address] Creatinine October 22, 2019 3:45pm 0.7 mg/dL 0.5-1.1 [facility], [address] [place] [address] Glomerular Filtration Rate Calc Nove mber 2019 11:35am Greater than 60 ml/min ABOVE 60 [facility], [address] [place] [address] Glomerular Filtration Rate Calc Octo lila 2019 11:50am Greater than 60 ml/min ABOVE 60 [facility], [address] [place] [address] 09333 Glomerular Filtration Rate Calc Apri l 2019 8:21am Greater than 60 ml/min ABOVE 60 [facility], [address] [place] [address] 39869 Glomerular Filtration Rate Calc Apri l 2019 2:36pm Greater than 60 ml/min ABOVE 60 [facility], [address] [place] [address] Glomerular Filtration Rate Calc Sergio h 2019 3:45pm Greater than 60 ml/min ABOVE 60 [facility], [address] [place] [address] [id number] Alanine Aminotransferase (ALT/SGPT) June 11, 2020 11:35am 39 U/L 10-49 [facility], [address] [place] [address] Alanine Aminotransferase (ALT/SGPT) May 10, 2020 11:50am 67 U/L 10-49 [facility], [address] [place] [address] 80191 Alanine Aminotransferase (ALT/SGPT) November 24, 2019 8:21am 48 U/L 10-49 [facility], [address] [place] [address] Alanine Aminotransferase (ALT/SGPT) November 21, 2019 2:36pm 48 U/L 10-49 [facility], [address] [place] [address] Alanine Aminotransferase (ALT/SGPT) October 22, 2019 3:45pm 54 U/L 10-49 [facility], [address] [place] [address] [id number] Aspartate Amino Transf (AST/SGOT) No vember 2019 11:35am 51 U/L 0-33 [facility], [address] [place] [address] [id number] Aspartate Amino Transf (AST/SGOT) Oc tober 2019 11:50am 64 U/L 0-33 [facility], [address] [place] [address] 12385 Aspartate Amino Transf (AST/SGOT) Ap ril 2019 8:21am 61 U/L 0-33 [facility], [address] [place] [address] Aspartate Amino Transf (AST/SGOT) Ap ril 2019 2:36pm 58 U/L 0-33 [facility], [address] [place] [address] [id number] Aspartate Amino Transf (AST/SGOT) Ma rch 2019 3:45pm 71 U/L 0-33 [facility], [address] [place] [address] Alkaline Phosphatase June 11 11:35am 124 U/L 45-129 [facility], [address] [place] [address] Alkaline Phosphatase May 10 11:50am 109 U/L 45-129 [facility], [address] [place] [address] Alkaline Phosphatase November 23 0 8:21am 113 U/L 45-129 [facility], [address] [place] [address] Alkaline Phosphatase November 20 0 2:36pm 123 U/L 45-129 [facility], [address] [place] [address] Alkaline Phosphatase October 21 0 3:45pm 143 U/L 45-129 [facility], [address] [place] [address] Calcium Level June 11, 2020 11:35am 9.3 mg/dL 8.5-10.1 [facility], [address] [place] [address] Calcium Level May 10, 2020 11:50am 9.0 mg/dL 8.5-10.1 [facility], [address] [place] [address] Calcium Level November 24, 2019 8:21am 8.7 mg/dL 8.5-10.1 [facility], [address] [place] [address] Calcium Level November 21, 2019 2:36pm 8.9 mg/dL 8.5-10.1 [facility], [address] [place] [address] Calcium Level October 22, 2019 3:45pm 9.5 mg/dL 8.5-10.1 [facility], [address] [place] [address] Total Bilirubin June 11, 2020 11:35am 0.6 mg/dL 0.3-1.2 [facility], [address] [place] [address] Total Bilirubin May 10, 2020 11:50am 0.8 mg/dL 0.3-1.2 [facility], [address] [place] [address] Total Bilirubin November 24, 2019 8:21am 0.5 mg/dL 0.3-1.2 [facility], [address] [place] [id number] Total Bilirubin November 21, 2019 2:36pm 0.4 mg/dL 0.3-1.2 [facility], [address] [place] [address] Total Bilirubin October 22, 2019 3:45pm 0.5 mg/dL 0.3-1.2 [facility], [address] [place] [address] Albumin June 11, 2020 11:35am 3.5 g/dL 3.2-4.8 [facility], [address] [place] [address] Albumin May 10, 2020 11:50am 3.1 g/dL 3.2-4.8 [facility], [address] [place] [address] Albumin November 24, 2019 8:21am 3.4 g/dL 3.2-4.8 [facility], [address] [place] [address] Albumin November 21, 2019 2:36pm 3.4 g/dL 3.2-4.8 [facility], [address] [place] [address] Albumin October 22, 2019 3:45pm 3.6 g/dL 3.2-4.8 [facility], [address] [place] [id number] Serum Total Protein June 11 11:35am 7.5 g/dL 5.7-8.2 [facility], [address] [place] [address] Serum Total Protein May 10 0 11:50am 7.6 g/dL 5.7-8.2 [facility], [address] [place] [address] Serum Total Protein November 24, 2019 8:21a m 7.3 g/dL 5.7-8.2 [facility], [address] [place] [address] Serum Total Protein November 21, 2019 2:36p m 7.5 g/dL 5.7-8.2 [facility], [address] [place] [address] Serum Total Protein October 22, 2019 3:45p m 8.2 g/dL 5.7-8.2 [facility], [address] [place] [id number] Triglycerides Level June 11 11:35am 141 mg/dL 0-150 [facility], [address] [place] [id number] Triglycerides Level November 24, 2019 8:21a m 187 mg/dL 0-150 [facility], [address] [place] [id number] Cholesterol Level June 11, 2020 11:35am 202 mg/dL 120-200 [facility], [address] [place] [id number] Cholesterol Level November 24, 2019 8:21am 203 mg/dL 120-200 [facility], [address] [place] [address] 37952 HDL Cholesterol June 11, 2020 11:35am 50 mg/dL HDL Less than 40 mg/dL: Major risk for CHDHDL Greater than 59 mg/dL: Low risk for CHD [facility], [address] [place] [address] 51097 HDL Cholesterol November 24, 2019 8:21am 52 mg/dL HDL Less than 40 mg/dL: Major risk for CHDHDL Greater than 59 mg/dL: Low risk for CHD [facility], [address] [place] [address] 51236 LDL Cholesterol, Calculated June 11, 2020 11:35am 124 mg/dL 0-100 [facility], [address] [place] [address] 68111 LDL Cholesterol, Calculated November 232019 8:21am 114 mg/dL 0-100 [facility], [address] [place] [address] 38397 C-Reactive Protein November 24, 2019 8:21am 9.1 mg/L 0.0-5.0 [facility], [address] [place] [address] 94671 Vitamin B12 Level November 21, 2019 2:36pm 467 pg/mL 211-911 [facility], [address] [place] [address] 36931 Folate November 21, 2019 2:36pm 14.5 ng/mL F OLATE INTERPRETATION NORMAL: GREATER THAN 5.38 INDETERMINATE: 3.38 - 5.38 DEFICIENT: LESS THAN 3.37 [facility], [address] [place] [address] 13227 Thyroid Stimulating Hormone (TSH) Ap ril 2019 8:21am 3.50 uIU/mL 0.35-5.50 [facility], [address] [place] [address] 39385 Thyroid Stimulating Hormone (TSH) Ap ril 2019 2:36pm 2.61 uIU/mL 0.35-5.50 [facility], [address] [place], [place] [id number] Rheumatoid Factor November 21, 2019 2:36pm 96.0 IU/mL 0.0-14.0 [facility], [address] [place], [place] [id number] Treponema pallidum Antibody November 202019 2:36pm Non reactive Non React karthik Performed at: [facility] [address] [place], [place] [id number] Director: Audrey Neumann MD, Phone: [phone] at: [facility] [id number] Director: Renetta Aguilera MD, Phone: [phone] [facility] , [address] [facility] [address] c-ANCA November 21, 2019 2:36pm <1:20 titer Neg:<1:20 [facility] , [address] [facility] [address] p-ANCA November 21, 2019 2:36pm <1:20 titer Neg:<1:20 The presence of positive fluorescence exhibiting P-ANCA orC-ANCA patterns alone is not specific for the diagnosis ofWegener's Granulomatosis (WG) or microscopic polyangiitis.Decisions about treatment should not be based solely onANCA IFA results. The International ANCA Group Consensusrecommends follow up testing of positive sera with both FL-3 and MPO-ANCA enzyme immunoassays. As many as 5% serumsamples are positive only by EIA. Ref. AM J Clin Bemrky1926;111:507-513. [facility] , [address] [facility] [address] Atypical p-ANCA November 21, 2019 2:36pm <1:20 titer Neg:<1:20 The atypical pANCA pattern has been observed in asignificant percentage of patients with ulcerative colitis,primary sclerosing cholangitis and autoimmune hepatitis.Performed at: [facility] [id number] Director: Renetta Aguilera MD, Phone: [phone] [facility] , [address] [facility] [address] Leukemia/Lymphoma Flow Cyto Results December 22, 2019 1:15pm Comment Lymphocytosis. No significant diagnostic immunophenotypic abnormalitydetected. (See comment.) [facility] , [address]onathan [facility] [address] Leukemia/Lymphoma Flow Cyto Comment December 22, 2019 1:15pm Comment Lymphocytosis is due to increases in T suppressor cells and B cells.Increases in multiple lymphocyte subsets may suggest a reactive process.Clinical correlation is recommended. [facility] , [address]athan [facility] [address] Leukemia/Lymphoma Accession Number M ay 2019 1:15pm Not Reported [facility] , [address] [facility] [address] Leukemia/Lymphoma Specimen Type December 22, 2019 1:15pm Comment Peripheral blood [facility] , [address] [facility] [address] Leukemia/Lymph Leukocyte Assessment December 22, 2019 1:15pm Comment No monoclonal B cell population is detected. kappa:lambda ratio 2.0An absolute increase in B cells is detected. The findings may representpolyclonal B cell lymphocytosis. Consider B cell genotyping, if clinicallyindicated, to detect a clonal B cell population.There is no loss of, or aberrant expression of, the mireles T cell antigens tosuggest a neoplastic T cell process.A decreased CD4/T helper to CD8/T suppressor cell ratio is detected.CD4:CD8 ratio 0.5An absolute increase in CD8+ T cells is detected.CD57 positive cells are relatively increased and are composed of a mixtureof few CD4 positive T cells, many CD8 positive T cells, and NK cells. CD57is a marker of large granular lymphocytes. Clinical correlation isrecommended.No circulating blasts are detected.There is no immunophenotypic evidence of abnormal myeloid maturation.Eosinophils are increased and account for approximately 10% of leukocytes.Clinical correlation is recommended.An absolute monocytosis is present. Rare monocytes show partial dimaberrant expression of CD23 and CD56, findings that can be seen inassociation with both reactive/activated processes as well as neoplasticprocesses.Analysis of the leukocyte population shows: granulocytes 49% (includingeosinophils 10%), monocytes 9%, lymphocytes 42%, blasts <0.1%, B cells 20%,T cells 19%, LGLs 14%, NK cells 3%. [facility] , [address] [facility] [address] Leukemia/Lymphoma Viability December 1:15pm Comment 96% [facility] , [address] [facility] [address] Leukemia/Lymphoma Phenotype December 1:15pm Not Reported [facility] , [address] [facility] [address] Leukemia/Lymphoma Gating Strategy Ma y 2019 1:15pm Comment 8 color analysis with CD45/SSC [facility] , [address] [facility] [address] Leukemia/Lymphoma Phenotype Chart Ma y 2019 1:15pm Comment CD2 Normal CD3 NormalCD4 Normal CD5 NormalCD7 Normal CD8 GnvklvZD96 Normal CD11b YqcwomHU14 Normal CD14 KvvflrKG11 Normal CD19 EhqrksLH54 Normal CD23 See UfeqYO96 Normal CD34 QpxhsaKZ25 Normal CD45 NfzwddEK23 See Text CD57 BvitaaGY054 Normal HLA-DR NormalKAPPA Normal LAMBDA OoruwzIB28 Normal [facility] , [address] [facility] [address] Pathology Message December 22, 2019 1:15pm Comment Jerod Del Rosario. [facility] , [address] [facility] [address] Cytology Clinician Provided ICD9 December 22, 2019 1:15pm Not Reported [facility] , [address] [facility] [address] Leukemia/Lymphoma Resulting ICD9 December 22, 2019 1:15pm Not Reported [facility] , [address] [facility] [address] Leukemia/Lymph Study Indications December 22, 2019 1:15pm Not Reported [facility] , [address] [facility] [address] Leukemia/Lymphoma Clinical Info December 22, 2019 1:15pm Comment LymphocytosisAccompanying CBC dated 12/17/19 shows:WBC count 10.9, Hgb 14.5, Garret 3.4, Lym 5.5, Lym% 50, Mon 1.3, Mon% 12, Eos0.6, Eos% 5, Bas 0.1, Plt 289K. [facility] , [address] [facility] [address] Leukemia/Lymphoma Comment December 22, 2019 1:15pm Comment Each antibody in this assay was utilized to assess forpotential abnormalities of studied cell populations or tocharacterize identified abnormalities.This test was developed and its performance characteristicsdetermined by [employer]. It has not been cleared or approvedby the U.S. Food and Drug Administration.The FDA has determined that such clearance or approval isnot necessary. This test is used for clinical purposes. Itshould not be regarded as investigational or for research.Performed at: -Y - [facility] [id number] [place] [place], [place] [id number] Director: Alphonse Putnam MD, Phone: [phone] at: [facility] [id number] [place], [place] [id number] Director: Alphonse Putnam MD, Phone: [phone] [facility] , [address] [facility] [address] Whole Blood Vitamin B1 Level November 042019 2:36pm 175.2 nmol/L Performed at: [facility] [address] [id number] Director: Renetta Aguilera MD, Phone: [phone] [facility] , [address] [facility] [address] Vitamin B6 Level November 21, 2019 2:36pm 11.6 ug/L Performed at: [facility] [address] [id number] Director: Renetta Aguilera MD, Phone: [phone] [facility] , [address] [facility] [address] Vitamin E Level November 21, 2019 2:36pm 11.8 mg/L [facility] , [address] [facility] [address] Gamma-Tocopherol Level (Vitamin E) A pril 2019 2:36pm 3.3 mg/L Reference intervals for alpha and gamma- tocopheroldetermined from National Health and Nutrition ExaminationSurvey, 1621-4154. Individuals with alpha- tocopherol levelsless than 5.0 mg/L are considered vitamin E deficient.Performed at: [address] [id number] Director: Renetta Aguilera MD, Phone: [phone] [facility] , [address] [place] [address] Albumin (PEP) November 21, 2019 2:36pm 3.4 g/dL [facility] , [address] [place] [address] Glgsa-7-Hgszhccsq November 21, 2019 2:36pm 0.2 g/dL [facility] , [address] [facility] [address] Viexx-1-Hjjndhbrn November 21, 2019 2:36pm 0.8 g/dL [facility] , [address] [facility] [address] Beta Globulins November 21, 2019 2:36pm 1.0 g/dL [facility] , [address] [facility] [address] M-Adam (RAEANN) November 21, 2019 2:36pm Not observed g/dL Not Observed [facility] , [address] [facility] [address] Gamma Globulins November 21, 2019 2:36pm 1.8 g/dL [facility] , [address] [place] [address] Globulin (PEP) November 21, 2019 2:36pm 3.8 g/dL [facility] , [address] [place] [address] Albumin/Globulin (PEP) November 20 020 2:36pm 0.9 [facility] , [address] [place] [address] Total Protein (PEP) November 21, 2019 2:36p m 7.2 g/dL [facility] , [address] [place] [address] Protein Electrophoresis Interpret Ap ril 2019 2:36pm Comment Protein electrophoresis scan will follow via computer,mail, or bicycle inspector delivery. [facility] , [address] [place] [address] Protein Electrophoresis Impression A pril 2019 2:36pm See scanned report [facility] , [address] [facility] [address] Anti-Double Strand DNA Antibody Apri l 2019 2:36pm <1 IU/mL Negative <5 Equivocal 5 - 9 Positive >9Performed at: RN - [facility] [address] [place], [place] [id number] Director: Audrey Neumann MD, Phone: [phone] [facility] , [address] [facility] [address] Anti-Nuclear Antibody Screen November 042019 2:36pm Positive Negative <1:80 Borderline 1:80 Positive >1:80 [facility] , [address] [place] [address] Anti-Nuclear Ab Centriole Pattern Ap ril 2019 2:36pm TNP No Reportable Result [facility] , [address] [place] [address] Anti-Nuclear Ab Nucleolar Pattern Ap ril 2019 2:36pm TNP No Reportable Result [facility] , [address] [place] [address] MAXIMUS Nuclear Membrane Pattern November 042019 2:36pm TNP No Reportable Result [facility] , [address] [place] [address] Anti-Nuclear Ab Speckled Pattern Apr il 2019 2:36pm 1:1280 [facility] , [address] [place] [address] Anti-Nuclear Ab Midbody Pattern Apri l 2019 2:36pm TNP No Reportable Result [facility] , [address] [place] [address] Anti-Nuclear Ab Centromere Pattern A pril 2019 2:36pm TNP No Reportable Result [facility] , [address] [place] [address] Anti-Nuclear Ab Nuclear Dot Pattern November 21, 2019 2:36pm TNP No Reportable Result [facility] , [address] [place] [address] Anti-Nuclear Ab PCNA Pattern November 042019 2:36pm TNP No Reportable Result [facility] , [address]tof castillo [facility] [address] Anti-Nuclear Ab Homogeneous Pattern November 21, 2019 2:36pm TNP No Reportable Result [facility] , [address] [facility] [address] [facility] [address] MAXIMUS Spindle Apparatus Pattern November 21, 2019 2:36pm TNP No Reportable Result [facility] , [address] [facility] [address] Anti-Nuclear Antibody Comment November 21, 2019 2:36pm Comment A positive MAXIMUS result may occur in healthy individuals (lowtiter) or be associated with a variety of diseases. Seeinterpretation chart which is not all inclusive:Pattern Antigen Detected Suggested Disease Association Homogeneous DNA(ds,ss), SLE - High titers Nucleosomes, Histones Drug-induced SLE Speckled Sm, TIME STUDY STATISTICIAN, SCL-70, SLE,MCTD,PSS (diffuse form), SS-A/SS-B Sjogrens Nucleolar SCL-70, PM-1/SCL High titers Scleroderma, PM/DM Centromere Centromere PSS (limited form) w/Crest syndrome variable Nuclear Dot Sp100,q69-xtlivz Primary Biliary Cirrhosis Nuclear GP210, Primary Biliary CirrhosisMembrane mata A,B,C Performed at: RN - [facility] [place] [id number] Director: Audrey Neumann MD, Phone: [phone] [facility] , [address] [facility] [address] SS-A Antibody November 21, 2019 2:36pm >8.0 AI [facility] , [address] [facility] [address] SS-B Antibody November 21, 2019 2:36pm <0.2 AI [facility] , [address] [facility] [address] Cancelled Test November 21, 2019 2:40pm A1c [facility], [address] [place] [address] 23429 Specimen Comment (Misc) November 21, 2019 2:40pm Did not pass with mcr check,abn signed Test(s) that were ordered on this requis iton were not collected. [facility], [address] [place] [address] 15073 Vitamin D 25-Hydroxy June 11 020 11:35am 25 ng/mL Vitamin D Status 25-OH Vitamin D:Deficiency: <20 ng/mLInsufficiency: 20 - 29 ng/mLOptimal: > or = 30 ng/mLFor 25-OH Vitamin D testing on patients onD2-supplementation and patients for whom quantitationof D2 and D3 fractions is required, the QuestAssureD(TM)25- OH VIT D, (D2,D3), LC/MS/MS is recommended: ordercode 60364 (patients >2yrs).See Note 1Note 1For additional information, please refer tohttp://education.[employer]/faq/SUM163(This link is being provided for informational/educational purposes only.)THIS TEST WAS PERFORMED AT:[facility] [id number] PAREDES MD [facility] Urine Random Creatinine June 11:44am 27.0 mg/dL THERE IS NO ESTABLISHED RANGE FOR RANDOM URINE CREATININE [facility], [address] [place] [address] Urine Random Creatinine November 24, 2019 8:42am 110.0 mg/dL THERE IS NO ESTABLISHED RANGE FOR RANDOM URINE CREATININE [facility], [address] [place] [address] Urine Microalbumin June 11 0 11:44am Less than 5.0 mg/L 0.0 -29.9 [facility], [address] [place] [address] Urine Microalbumin November 24, 2019 8:42am 12.6 mg/L 0.0-29.9 [facility], [address] [place] [address] Urine Microalbumin/Creatinine Ratio June 11, 2020 11:44am Not Reported [facility], [address] [place] [address] Urine Microalbumin/Creatinine Ratio November 24, 2019 8:42am 11.4 ug/mg 0.0-30.0 [facility], [address] [place] [address] Hemoglobin A1c June 11, 2020 11:35am 6.6 % 4.0-6.0 The following ranges may be used for interpretation of results: HGBA1C degree of glucose control: Greater than 8%: Action Suggested * Less than 7%: Goal of Diabetic Therapy Less than 6%: Normal Factors such as duration of diabetes, adherence to therapyand the age of the patient should also be considered inassessing the degree of blood glucose control. * High risk of developing residential complications such asretinopathy, nephropathy, neuropathy, cardiopathy, etc. Some danger of hypoglycemic reaction in Type I diabetics.Some glucose intolerant individuals and "Sub Clinical"diabetics may demonstrate HGBA1C levels in this area. [facility], [address] [place] [address] 48232 Hemoglobin A1c November 24, 2019 8:21am 6.4 % 4.0-6.0 Th e following ranges may be used for interpretation of results: HGBA1C degree of glucose control: Greater than 8%: Action Suggested * Less than 7%: Goal of Diabetic Therapy Less than 6%: Normal Factors such as duration of diabetes, adherence to therapyand the age of the patient should also be considered inassessing the degree of blood glucose control. * High risk of developing residential complications such asretinopathy, nephropathy, neuropathy, cardiopathy, etc. Some danger of hypoglycemic reaction in Type I diabetics.Some glucose intolerant individuals and "Sub Clinical"diabetics may demonstrate HGBA1C levels in this area. [facility], [address] [place] [address] Estimated Average Glucose (eAG) [facility] 2019 11:35am 143 mg/dl An A1C of 7% - the goal of diabetic ther apy - is equivalentto an EAG of 154 mg/dl. [facility], [address] [place] [address] 27931 Estimated Average Glucose (eAG) [facility] 2019 8:21am 137 mg/dl An A1C of 7% - the goal of diabetic therapy - is equivalentto an EAG of 154 mg/dl. [facility], [address] [place] [address]17 Diagnostic Imaging Reports Report Dictated Date/Time Dictated By Status Radiology Report September 08, 2019 3:08pm Pasha Uribe MD completed [place] [id number] [place] [id number] [phone] NAME SEX PT STATUS ACCOUNT NUMBER [place] [facility] RE[facility] [id number] ORDERING PHYSICIAN LOCATION MEDICAL RECORD NO. CORY BAGLEY MD RAD [id number] ATTENDING PHYSICIAN DATE OF DATE OF EXAM/TIME Jose R Church DO 1950 09/08/191417 TYPE / EXAM Xray Hand Complete RT REASON FOR EXAM PRIMARY OSTEOARTHRITIS MULTIPLE JOINTS COMPARISON: None FINDINGS: There is no fracture or dislocation. However, moderate to severe degenerative changes are seen at the interphalangeal joint of the right first digit and the DIP joints second, third, and fifth digits. Moderate degenerative changes are seen at the DIP joint of the fourth digit at the PIP joint of the second digit. No lytic or blastic osseous lesion is seen. IMPRESSION: Moderate to severe osteoarthritis. Reported By Pasha Uribe MD on 09/08/191507 Signed By Pasha Uribe MD on 09/08/191509 Date Time CC: Pasha Uribe MD; Jose R Church DO Techn: [employer]ARR[employer] Trans Dt/Tm: Trans by: DT Prt Dt/Tm: [id number]: Total DLP = 0.00 mGy-cm Fluoroscopy Time (in secs): Radiology Report September 08, 2019 3:10pm Pasha Uribe MD completed [place] [id number] [phone] NAME SEX PT STATUS ACCOUNT NUMBER [place] [facility] RE[facility] [id number] ORDERING PHYSICIAN LOCATION MEDICAL RECORD NO. CORY BAGLEY MD RAD [id number] ATTENDING PHYSICIAN DATE OF DATE OF EXAM/TIME Jose R Church DO 1950 09/08/191417 TYPE / EXAM Xray Hand Complete LT REASON FOR EXAM PRIMARY OSTEOARTHRITIS MULTIPLE JOINTS COMPARISON: None FINDINGS: There is no fracture or dislocation. However, moderate degenerative changes are seen at the interphalangeal joint of the right first digit and the DIP joints of the third and fifth digits. Moderate to severe degenerative changes are seen at the DIP joint of the second digit. No lytic or blastic osseous lesion is seen. IMPRESSION: Moderate osteoarthritis. Reported By Pasha rUibe MD on 09/08/191509 Signed By Pasha Uribe MD on 09/08/191511 Date Time CC: Pasha Uribe MD; Jose R Church DO Techn: CARRC Trans Dt/Tm: Trans by: DT Prt Dt/Tm: : Total DLP = 0.00 mGy-cm Fluoroscopy Time (in secs): Radiology Report September 08, 2019 3:13pm Pasha Uribe MD completed [place] [address] [place] [address] [phone] NAME SEX PT STATUS ACCOUNT NUMBER [place] [facility] RE[facility] [id number] ORDERING PHYSICIAN LOCATION MEDICAL RECORD NO. CORY BAGLEY MD RAD [id number] ATTENDING PHYSICIAN DATE OF DATE OF EXAM/TIME RanjitJose R NOBLE 1950 09/08/191417 TYPE / EXAM Xray Shoulder complete LT REASON FOR EXAM PAIN LEFT SHOULDER COMPARISON: Please note that no prior study is available for comparison. FINDINGS: Apparent deformity of the left ureteral of the recent possibility of prior fracture. Correlation with patient history advised. Early degenerative changes are seen in the left shoulder joint. IMPRESSION: 1. No acute fracture. Possible prior humeral neck fracture. Correlation with patient history advised. 2. Early degenerative changes. Reported By Pasha Uribe MD on 09/08/19 151 Signed By Pasha Uribe MD on 09/08/19 1516 Date Time CC: Pasha Uribe MD; Jose R Church DO Techn: CARRC Trans Dt/Tm: Trans by: DT Prt Dt/Tm: [id number]: Total DLP = 0.00 mGy-cm Fluoroscopy Time (in secs): Radiology Report September 08, 2019 3:16pm Pasha Uribe MD completed [place] [address] [place] [address] [phone] NAME SEX PT STATUS ACCOUNT NUMBER [place] [facility] [id number] ORDERING PHYSICIAN LOCATION MEDICAL RECORD NO. CORY BAGLEY MD RAD [id number] ATTENDING PHYSICIAN DATE OF DATE OF EXAM/TIME Jose R Church DO 1950 09/08/191417 TYPE / EXAM Xray Knee Comp 4 or more RT REASON FOR EXAM PRIMARY OSTEOARTHRITIS MULTIPLE JOINTS COMPARISON: None FINDINGS: There is normal alignment and position of the bones of the knee. A moderate joint effusion is suggested on the right. No fractures are identified. IMPRESSION: 1. No fracture dislocation. 2. Early degenerative changes. 3. Moderate suprapatellar effusion. Reported By Pasha Uribe MD on 09/08/191515 Signed By Pasha Uribe MD on 09/08/191516 Date Time CC: Pasha Uribe MD; Jose R Church DO Techn: CARRC Trans Dt/Tm: Trans by: DT Prt Dt/Tm: [id number]: Total DLP = 0.00 mGy-cm Fluoroscopy Time (in secs): Radiology Report September 08, 2019 3:17pm Pasha Uribe MD completed [place] [id number] [place] [address] [phone] NAME SEX PT STATUS ACCOUNT NUMBER [place] [facility] [id number] ORDERING PHYSICIAN LOCATION MEDICAL RECORD NO. CORY BAGLEY MD RAD [id number] ATTENDING PHYSICIAN DATE OF DATE OF EXAM/TIME Jose R Church DO 1950 09/08/191417 TYPE / EXAM Xray Knee comp 4 or more LT REASON FOR EXAM PRIMARY OSTEOARTHRITIS MULTIPLE JOINTS COMPARISON: None FINDINGS: There is normal alignment and position of the bones of the knee. No evidence for joint effusion is noted. No fractures are identified. IMPRESSION: No fracture or dislocation. No significant joint effusion. Reported By Pasha Uribe MD on 09/08/191516 Signed By Pasha Uribe MD on 09/08/191517 Date Time CC: Pasha Uribe MD; Jose R Church DO Techn: [employer] Trans Dt/Tm: Trans by: DT Prt Dt/Tm: [id number]: Total DLP = 0.00 mGy-cm Fluoroscopy Time (in secs): Radiology Report September 08, 2019 3:55pm Pasha Uribe MD completed [facility] [address] [place], [place] [address] [phone] NAME SEX PT STATUS ACCOUNT NUMBER [place] [facility] [id number] ORDERING PHYSICIAN LOCATION MEDICAL RECORD NO. CORY BAGLEY MD RAD [id number] ATTENDING PHYSICIAN DATE OF DATE OF EXAM/TIME Jose R Church DO 1950 09/08/191416 TYPE / EXAM Xray Lumbar spine complete REASON FOR EXAM PRIMARY OSTEOARTHRITIS MULTIPLE JOINTS COMPARISON: None FINDINGS: There is preservation of the normal lumbar lordosis. No compression deformity or subluxation is seen. However, there is mild levoscoliosis of the upper lumbar spine. Multilevel degenerative changes are seen. These appear to be most significant at L3-4 on the right and at L4-5 on the left. Clinical correlation advised for possibility of radicular signs. If the patient has radicular signs, further evaluation with MRI may be considered. No lytic or blastic osseous lesions seen. IMPRESSION: 1. No vertebral compression deformity or subluxation. 2. Mild levoscoliosis of the upper lumbar spine. 3. Multilevel degenerative changes, as described, most significant at L3-4 on the right and L4-5 on the left. Clinical correlation advised. 4. No lytic or blastic osseous lesion. Reported By Pasha Uribe MD on 09/08/191554 Signed By Pasha Uribe MD on 09/08/19 155 Date Time CC: Pasha Uribe MD; Jose R Church DO Techn: CARR Trans Dt/Tm: Trans by: DT Prt Dt/Tm: [id number]: Total DLP = 0.00 mGy-cm Fluoroscopy Time (in secs): Radiology Report October 28, 2019 1:01pm Pasha Uribe MD completed [facility] [address] [place] [address] [phone] NAME SEX PT STATUS ACCOUNT NUMBER [place] MCM[place] REG REF [id number] ORDERING PHYSICIAN LOCATION MEDICAL RECORD NO. Jose R Church DO CT [id number] ATTENDING PHYSICIAN DATE OF DATE OF EXAM/TIME Jose R Church 1950 10/28/191258 TYPE / EXAM CT Head without contrast REASON FOR EXAM 9.5 GARCIA s/p fall on Coumadin; r/o blee d, patholo COMPARISON: None available. TECHNIQUE: CT images of the head were acquired from the skull base to the vertex using 3 mm collimation. FINDINGS: There is no acute intracranial hemorrhage. There is no large acute cortical infarction. Please note that if acute infarction is suspected, MRI is the test of choice. Midline coarse calcification is seen at the level of the daniel (3:13-14) and is likely related to cavernoma. Overall, this cavernoma measures approximately 1.1 cm. There is no mass effect or mid-line shift. Cerebral atrophy is mild . The ventricular system is not dilated.. Moderate mucoperiosteal thickening is seen in the maxillary sinuses, bilaterally. Additionally noted are fluid levels to suggest a component of acute disease. Mastoid air cells are essentially clear. No depressed calvarial fracture is seen. IMPRESSION: 1. No acute intracranial hemorrhage. 2. 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 Correlation with any prior study (not available in this institution) is advised. Neurology consultation recommended. 3. No depressed calvarial fracture. 4. Paranasal sinus disease, as described. 5. No mass effect or midline shift.. Dose reduction was performed utilizing CARE dose with automated adjustment of the kV and MAS according to patient size, iterative reconstruction, automated exposure control, as well as adaptive dose shielding. Reported By Pasha Uribe MD on 10/28/19 1301 Signed By Pasha Uribe MD on 10/28/19 1307 Date Time CC: Pasha Uribe MD; Jose R Church DO Techn: PELBU Trans Dt/Tm: Trans by: DT Prt Dt/Tm: : Total DLP = 623.00 mGy-cm : Total Radiation Dose = 1.9313 mSv Lifetime Dose: 1.9313 mSv Radiology Report October 28, 2019 1:08pm Pasha Uribe MD completed [facility] [address] [place] [address] [phone] NAME SEX PT STATUS ACCOUNT NUMBER [place] REG REF [id number] ORDERING PHYSICIAN LOCATION MEDICAL RECORD NO. Jose R Church DO CT [id number] ATTENDING PHYSICIAN DATE OF DATE OF EXAM/TIME Jose R Church DO 1950 10/28/19 / 1259 TYPE / EXAM CT C-Spine without contrast REASON FOR EXAM neck pain and headache after fall on Coumadin COMPARISON: None available. FINDINGS: Scans were obtained from C1 through C7. The patient is remotely post ACDF with vertebral body screws at the C4, C5, and C6 levels. There is straightening of normal cervical lordosis. No evidence of hardware complication or failure is seen. There is no acute fracture. No significant spinal stenosis is appreciated. Lung apices are essentially clear. IMPRESSION: 1. ACDF from C4 to C6. No evidence of hardware convocation or failure. 2. No acute fracture. No significant spinal stenosis. 3. Essentially clear lung apices. Dose reduction was performed utilizing CARE dose with automated adjustment of the kV and MAS according to patient size, iterative reconstruction, automated exposure control, as well as adaptive dose shielding. Reported By Pasha Uribe MD on 10/28/19 1308 Signed By Pasha Uribe MD on 10/28/19 1322 Date Time CC: Pasha Uribe MD; Jose R Church DO Techn: PELBU Trans Dt/Tm: Trans by: DT Prt Dt/Tm: : Total DLP = 400.00 mGy-cm : Total Radiation Dose = 0.0000 mSv Lifetime Dose: 1.9313 mSv Stress Test November 11, 2019 10:36am Roger Parr completed STRESS TEST CONSULTATION NAME: [place] MCMANUS : 1950 AGE: 69 MR#: [id number] ADMITTING DATE: 11/11/[address]: DISCHARGE DATE: ATTENDING DR: Ross Kaba M.D. ROOM#: LEXISCAN CARDIOLITE STRESS TEST Pretest EKG sinus rhythm, normal axis, right bundle branch block with repolari zation changes. Patient exercised on Lexiscan protocol, 0.4 mg of Lexiscan given over 20 seconds after which Cardiolite was injected. Resting heart rate 56, resting blood pressure 138/78. Peak heart rate 78, peak blood pressure 124/56. SYMPTOMS DURING STRESS TEST No chest pain. EKG WITH EXERCISE No additional ST or T wave changes at peak exercise or recovery. ARRHYTHMIAS None. IMPRESSION No ST-T changes after Lexiscan. SUGGESTION Pending Cardiolite result dictated separately. CC: Jose R Church DO <Electronically signed by Roger Parr MD> Roger Parr MD 12/03/19 1056 Roger Parr M.D. Cosigner: D: RAYNA 11/11/19 1036 T: DELORIS 11/11/19 1056 CC: Roger Parr M.D.; Jose R Church DO LAST EDIT: Radiology Report November 11, 2019 3:36pm Roger Parr completed [facility] [address] [place] [id number] [phone] NAME SEX PT STATUS ACCOUNT NUMBER [place] MCMANUS F REG REF [id number] ORDERING PHYSICIAN LOCATION MEDICAL RECORD NO. Ross Kaba M.D. EKG [id number] ATTENDING PHYSICIAN DATE OF DATE OF EXAM/TIME Jose R Church DO 1950 11/11/19699 TYPE / EXAM NM Nuclear Stress Test REASON FOR EXAM R55 SYNCOPE AND COLLAPSE,I10 HTN, DATE OF TEST: 11/11/19 TECHNIQUE: Gated myocardial perfusion SPECT was performed using rest-stress sequence. Technetium 99 sestamibi 10.65 millicuries at rest and 30.4 millicuries at peak exercise were injected. EKG was reported separately. FINDINGS: 1. Normal perfusion of all segment of le ft ventricular myocardium at rest and with exercise. 2. No evidence of ischemia or infarction noted. 3. Above findings were confirmed with bu s eye spectral analysis. 4. Breast attenuation was noted. 5. Gated wall motion analysis revealed n ormal left ventricular wall motion, overall ejection fraction of 63%. CONCLUSION: 1. Normal perfusion. 2. No evidence of ischemia or infarction . 3. Normal LV function. 4. Breast attenuation. 5. Continuation of medical therapy. Reported By Roger Parr MD on 11/11/19 1536 Signed By Roger Parr MD on 12/03/19 1056 <<Signature on File>> Date Time CC: Roger Parr M.D.; Jose R Church DO Techn: GRAMR Trans Dt/Tm: 11/11/19 1606 Trans by: LO Prt Dt/Tm: : Total DLP = 0.00 mGy-cm : Total Radiation Dose = 0.0000 mSv Lifetime Dose: 1.9313 mSv Radiology Report December 02, 2019 11:07am Pasha Uribe MD completed [facility] [address] [place] [id number] [phone] NAME SEX PT STATUS ACCOUNT NUMBER [place] MCM[place] Lloyd Obed REG REF [id number] ORDERING PHYSICIAN LOCATION MEDICAL RECORD NO. Jose R Church DO RAD [id number] ATTENDING PHYSICIAN DATE OF DATE OF EXAM/TIME RanjitJose R moon 1950 12/02/19 / 5 TYPE / EXAM Xray Cervical spine complete REASON FOR EXAM pre-syncopal,headache,C-Spine tenderness COMPARISON: None FINDINGS: Routine views show no evidence of fracture or dislocation. ACDF from C4 to C6 is seen. There is no evidence of hardware complication or failure. Fusion of C4- C5 and C5-C6 is seen as well. There is no evidence of vertebral body compression deformity or subluxation. Straightening of normal cervical lordosis is seen. There is no prevertebral soft tissue swelling. Multilevel degenerative changes are seen at the neural foramina level. This is more significant on the left at C4-5 and C5-6 and on the right at C4-5 and C6-7. No acute fracture is seen. IMPRESSION: 1. ACDF from C4 to C6. No evidence of hardware complication or failure. 2. No acute fracture seen. No prevertebral soft tissue swelling. 3. Degenerative changes, as described. Clinical correlation advised. 4. No vertebral body compression deformity or subluxation. Reported By Pasha Uribe MD on 12/02/191106 Signed By Pasha Uribe MD on 12/02/191120 Date Time CC: Pasha Uribe MD; Jose R Church DO Techn: BAKLE Trans Dt/Tm: Trans by: DT Prt Dt/Tm: [id number]: Total DLP = 0.00 mGy-cm Fluoroscopy Time (in secs): Radiology Report January 02, 2020 10:31am Pasha Uribe MD completed [id number] [place] [address] [phone] NAME SEX PT STATUS ACCOUNT NUMBER [place] REG REF [id number] ORDERING PHYSICIAN LOCATION MEDICAL RECORD NO. Yan Fermin DO MRI [id number] ATTENDING PHYSICIAN DATE OF DATE OF EXAM/TIME Jose R Church DO 1950 12/31/19 / 6 TYPE / EXAM MRI Cervical without contrast REASON FOR EXAM OTHER CERVICAL DISC DEGENERATION, UNSP CERVICAL REGION COMPARISON: None TECHNIQUE: MR images of the cervical spine were acquired without IV contrast. FINDINGS: SPINAL CORD: Normal. DISKS: Normal. BONES: Vertebral body heights are normal. The patient is remotely post ACDF C4-C5-C6. Marrow signal is grossly normal. Adjacent to the orthopedic hardware, marrow signal cannot be effectively assessed. SOFT TISSUES: Normal. C2-C3: No canal or foraminal stenosis. C3-C4: A moderate, broad-based disc [place] complex is seen. It is associated with moderate ligamentous thickening and moderate spinal stenosis. C4-C5: No canal or foraminal stenosis. C5-C6: No canal or foraminal stenosis. C6-C7: A mild, broad-based disc osteophyte complex is seen. Advise ventral thecal sac and is associated with mild ligamentous thickening. Spinal stenosis is also mild, but the neural foramina are not narrowed. C7-T1: No canal or foraminal stenosis. OTHER FINDINGS: None. IMPRESSION: 1. ACDF at C4-C5-C6. 2. Moderate degenerative changes at C3-4. Correlation with radicular or myelopathic signs advised. Reported By Pasha Uribe MD on 01/02/20 1031 Signed By Pasha Uribe MD on 01/02/20 1051 Date Time CC: Pasha Uribe MD; Jose R Church DO Techn: DIONTE Trans Dt/Tm: Trans by: DT Prt Dt/Tm: : Total DLP = 0.00 mGy-cm : Total Radiation Dose = 0.0000 mSv Lifetime Dose: 1.9313 mSv Radiology Report March 30, 2020 3:09pm Pasha Uribe MD completed [facility] [address] [place] [id number] [phone] NAME SEX PT STATUS ACCOUNT NUMBER [place] REG REF [id number] ORDERING PHYSICIAN LOCATION MEDICAL RECORD NO. DO RYAN Oliver [id number] ATTENDING PHYSICIAN DATE OF DATE OF EXAM/TIME Jose R Church DO 1950 03/30/20 / 1508 TYPE / EXAM Xray Foot Complete RT REASON FOR EXAM Stub toe foot,bruise ,painful R/O fracture [place] MCMANUS [id number] 1950 ADDENDUM CRITICAL RESULT COMMUNICATED TO ARY Bender BY TELEPHONE AT 0945 hours on March 31, 2020.. Addendum Reported By Pasha Uribe MD on 03/31/20 0936 Signed By Pasha Uribe MD on 03/31/20 1036 Trans Dt/Tm: Trans by: MEDQ [p pg] COMPARISON: None FINDINGS: Fracture of the head of the proximal phalanx of the right fifth digit is seen. Hammertoe deformities of the second through fourth digits is seen, as well. Moderate degenerative changes are seen at the first MTP joint. No other displaced fracture is appreciated. There is no lytic or blastic osseous lesion. IMPRESSION: 1. Nondisplaced fracture at the head of proximal phalanx of the right fifth digit. 2. Moderate degenerative changes at the first MTP joint. 3. No other displaced fracture. No dislocation or other significant abnormality. Reported By Pasha Uribe MD on 03/30/20 1509 Signed By Pasha Uribe MD on 03/30/20 1724 Date Time CC: Pasha Uribe MD; Jose R Church DO Techn: ERMELINDA Trans Dt/Tm: Trans by: DT Prt Dt/Tm: [id number]: Total DLP = 0.00 mGy-cm Fluoroscopy Time (in secs): Radiology Report June 15, 2020 12:58pm Dao Hickman DO completed [id number] [place] [address] [phone] NAME SEX PT STATUS ACCOUNT NUMBER [place] MCMANUS ER [id number] ORDERING PHYSICIAN LOCATION MEDICAL RECORD NO. Apollo Valente MD ER [id number] ATTENDING PHYSICIAN DATE OF DATE OF EXAM/TIME Jose R Church DO 1950 06/15/201156 TYPE / EXAM XRAY HIP LT 2-3 VIEW W/PELVIS REASON FOR EXAM fell onto L hip CLINICAL HISTORY: fell onto L hip TECHNIQUE: AP view of the pelvis, AP and frog-leg views of the left hip were obtained. COMPARISON: None available. FINDINGS: Mild cortical irregularity involving the inferior left pubic ramus, which may be artifactual or related to a minimally displaced/nondisplaced fracture. There is no definite displaced left femoral fracture. Mild left hip arthritis. There is no bone destruction. IMPRESSION: Possible nondisplaced/minimally displaced left inferior pubic ramus fracture. No definite displaced left femoral fracture. Note: nondisplaced/minimally displaced hip and pelvic fractures are often not visible on x-ray. If there is clinical concern or severe pain/inability to weight bear, MR is recommended for further evaluation before ambulation is attempted. Reported By Dao Hickman DO on 06/15/20 1258 Signed By Dao Hickman DO on 06/15/20 1300 Date Time CC: Dao Hickman DO; Jose R Church DO Techn: EBEBR Trans Dt/Tm: Trans by: DT Prt Dt/Tm: [id number]: Total DLP = 0.00 mGy-cm Fluoroscopy Time (in secs): Radiology Report June 15, 2020 1:01p ivet Hickman DO completed [facility] [address] [place] [address] [phone] NAME SEX PT STATUS ACCOUNT NUMBER [place] MCM[place] REG ER [id number] ORDERING PHYSICIAN LOCATION MEDICAL RECORD NO. Apollo Valente MD ER [id number] ATTENDING PHYSICIAN DATE OF DATE OF EXAM/TIME RanjitJose R moon 1950 06/15/209 TYPE / EXAM Xray Elbow AP/LAT LT REASON FOR EXAM fall with elbow trauma CLINICAL INDICATION: fall with elbow trauma. TECHNIQUE: Frontal, lateral, and oblique radiographs of the left elbow were obtained. COMPARISON: None available. FINDINGS: There is no x-ray evidence of an acute fracture or dislocation. There is mild degenerative change. No significant joint effusion. Moderate soft tissue irregularity involving the dorsal aspect of the proximal forearm. IMPRESSION: No x-ray evidence of acute displaced fracture. Reported By Dao Hickman DO on 06/15/20 130 Signed By Dao Hickman DO on 06/15/20 130 Date Time CC: Dao Hickman DO; Jose R Church DO Techn: EBEBR Trans Dt/Tm: Trans by: DT Prt Dt/Tm: [id number]: Total DLP = 0.00 mGy-cm Fluoroscopy Time (in secs): Radiology Report June 27, 2020 6:33p m Oneyda Mosqueda MD [facility] [address] [place] [address] [phone] NAME SEX PT STATUS ACCOUNT NUMBER [place] MCM[place] REG ER [id number] ORDERING PHYSICIAN LOCATION MEDICAL RECORD NO. Apollo Varela MD ER [id number] ATTENDING PHYSICIAN DATE OF DATE OF EXAM/TIME Jose R Church DO 1950 06/27/201816 TYPE / EXAM CT Head without contrast REASON FOR EXAM trauma Clinical History/Indication for Exam: trauma CT HEAD WITHOUT INTRAVENOUS CONTRAST INDICATION: trauma TECHNIQUE: Axial computed tomography images of the head/brain without intravenous contrast. Sagittal and coronal reformatted images were created and reviewed. This CT exam was performed using one or more of the following dose reduction techniques: automated exposure control, adjustment of the mA and/or kV according to patient size, and/or use of iterative reconstruction technique. COMPARISON: No relevant prior studies available. FINDINGS: Brain: Diffuse cerebral atrophy. Chronic periventricular white matter changes are present. Calcifications are present in the daniel. There is no associated enlargement or expansion of the daniel. Differential diagnostic considerations include sequela from old infarction, vascular malformation, neoplastic pathology felt to be less likely. Nevertheless consider follow-up study of the head with MRI with and without gadolinium for further characterization. No hemorrhage. Brainstem: Unremarkable. Bones/joints: Unremarkable. No acute fracture. Sinuses: Mucosal thickening and fluid present in the RIGHT maxillary sinus. Mucosal thickening present in the ethmoid sinuses and RIGHT frontal sinus. Mastoid air cells: Unremarkable as visualized. No mastoid effusion. Orbits: Unremarkable as visualized. Sella: Unremarkable. IMPRESSION: 1. Diffuse cerebral atrophy. Chronic periventricular white matter changes are present. 2. No intracranial hemorrhage. 3. Calcifications are present in the daniel. There is no associated enlargement or expansion of the daniel. Differential diagnostic considerations include sequela from old infarction, vascular malformation, neoplastic pathology felt to be less likely. Nevertheless consider follow-up study of the head with MRI with and without gadolinium for further characterization. Automatic exposure control was used as a dose lowering technique. REPORT SIGNATURE ON FILE 06/27/2020 (18:33 Eastern Time ) Signed by: Oneyda Mosqueda M.D. Reported By Oneyda Mosqueda MD on 06/27/201832 Signed By Oneyda Mosqueda MD on 06/27/201832 Date Time CC: Oneyda Mosqueda MD; Jose R Church DO Techn: LEO Trans Dt/Tm: Trans by: DT Prt Dt/Tm: : Total DLP = 800.00 mGy-cm : Total Radiation Dose = 2.4800 mSv Lifetime Dose: 4.5849 mSv Radiology Report June 27, 2020 6:37p m Oneyda Mosqueda MD completed [facility] [address] [place] [address] [phone] NAME SEX PT STATUS ACCOUNT NUMBER [place] MCMANUS [facility] ER [id number] ORDERING PHYSICIAN LOCATION MEDICAL RECORD NO. Apollo Varela MD ER [id number] ATTENDING PHYSICIAN DATE OF DATE OF EXAM/TIME Jose R Church DO 1950 06/27/201816 TYPE / EXAM CT Maxillofacial area w/o cont REASON FOR EXAM trauma Clinical History/Indication for Exam: trauma CT MAXILLOFACIAL WITHOUT INTRAVENOUS CONTRAST INDICATION: trauma TECHNIQUE: Axial computed tomography images of the face without intravenous contrast. Sagittal and coronal reformatted images were created and reviewed. This CT exam was performed using one or more of the following dose reduction techniques: automated exposure control, adjustment of the mA and/or kV according to patient size, and/or use of iterative reconstruction technique. COMPARISON: No relevant prior studies available. FINDINGS: Bones/joints: No acute fracture. Soft tissues: Unremarkable. Orbits: Unremarkable. Sinuses: Mucosal thickening present in the maxillary sinuses, ethmoid sinuses and RIGHT frontal sinus. No air-fluid levels. Mastoid air cells: Unremarkable as visualized. No mastoid effusion. IMPRESSION: Negative for acute fracture or dislocation involving the maxillofacial regions and mandible. Automatic exposure control was used as a dose lowering technique. REPORT SIGNATURE ON FILE 06/27/2020 (18:37 Eastern Time ) Signed by: Oneyda Mosqueda M.D. Reported By Oneyda Mosqueda MD on 06/27/201836 Signed By Oneyda Mosqueda MD on 06/27/201836 Date Time CC: Oneyda Mosqueda MD; Jose R Church DO Techn: MORSA Trans Dt/Tm: Trans by: DT Prt Dt/Tm: : Total DLP = 56.00 mGy-cm : Total Radiation Dose = 0.1736 mSv Lifetime Dose: 4.5849 mSv Radiology Report June 27, 2020 6:55p m Wild Cueva MD completed [id number] [place] [address] [phone] NAME SEX PT STATUS ACCOUNT NUMBER [place] MCM[place] REG ER [id number] ORDERING PHYSICIAN LOCATION MEDICAL RECORD NO. Apollo Varela MD ER [id number] ATTENDING PHYSICIAN DATE OF DATE OF EXAM/TIME Jose R Church 1950 06/27/201816 TYPE / EXAM Xray Elbow complete LT REASON FOR EXAM trauma Clinical History/Indication for Exam: trauma RADIOGRAPHS OF THE LEFT ELBOW COMPLETE 3 OR MORE VIEWS INDICATION: trauma COMPARISON: No relevant prior studies available. FINDINGS: Bones/joints: Calcification of the radial collateral ligament. No acute fracture. No dislocation. Soft tissues: Soft tissue swelling on the dorsal aspect of the left proximal forearm. IMPRESSION: 1. Soft tissue swelling on the dorsal aspect of the left proximal forearm. 2. Calcification of the radial collateral ligament. REPORT SIGNATURE ON FILE 06/27/2020 (18:55 Eastern Time ) Signed by: Wild Cueva M.D. Reported By Wild Cueva MD on 06/27/201854 Signed By Wild Cueva MD on 06/27/201854 Date Time CC: Wild Cueva MD; Jose R Church DO Techn: MORSA Trans Dt/Tm: Trans by: DT Prt Dt/Tm: [id number]: Total DLP = 0.00 mGy-cm Fluoroscopy Time (in secs): Radiology Report June 27, 2020 6:56p m Wild Cueva MD completed [address] [place] [address] [phone] NAME SEX PT STATUS ACCOUNT NUMBER SURYA MCMANUSRICJOSIANE [place] REG ER [id number] ORDERING PHYSICIAN LOCATION MEDICAL RECORD NO. Apollo Varela MD ER [id number] ATTENDING PHYSICIAN DATE OF DATE OF EXAM/TIME Jose R Church 1950 06/27/201816 TYPE / EXAM XRAY HIP LT 2-3 VIEW W/PELVIS REASON FOR EXAM trauma Clinical History/Indication for Exam: trauma RADIOGRAPHS OF THE LEFT HIP WITH PELVIS WHEN PERFORMED 2 OR 3 VIEWS INDICATION: trauma COMPARISON: No relevant prior studies available. FINDINGS: Bones/joints: Minimal narrowing of the medial joint compartment. No acute abnormalities are seen involving the pelvis. No dislocation. Soft tissues: Unremarkable. IMPRESSION: Minimal narrowing of the medial joint compartment. No acute abnormalities are seen involving the pelvis. REPORT SIGNATURE ON FILE 06/27/2020 (18:56 Eastern Time ) Signed by: Wild Cueva M.D. Reported By Wild Cueva MD on 06/27/201855 Signed By Wild Cueva MD on 06/27/201855 Date Time CC: Wild Cueva MD; Jose R Church DO Techn: LEO Trans Dt/Tm: Trans by: DT Prt Dt/Tm: [id number]: Total DLP = 0.00 mGy-cm Fluoroscopy Time (in secs): Health Concerns Health Concerns may be documented in an alternate section. Advance Directives Advance Directive Response Recorded Date/Time Advanced Directive No No [email or web address] 5:41pm Does Patient have a DNR? No June 27, 2020 5:41pm Healthcare Proxy Yes Nov ember 2019 5:41pm Living Will Yes December 10:34am Chief Complaint and Reason for Visit Chief Complaint HEARING EVAL (AID EV AL) Anticoagulation Anticoagulation PRIMARY OA INVOLVING MULTIPLE JOINTS Anticoagulation Abdominal pain WEAKNESS, HIGH BLOOD PRESSURE Syncope CT. STN W/O; S/P FALL , HEADACHE, ON ANTICOAGULANT SYNCOPE AND COLLAPSE,HTN,CVA I10,K21.9,R73.03,M06.9,Z86.73 K21.9,I10 Syncope R51,R55 anti anti Headache Follow-up R55,D68.61,R51 D72.820,R55,D68.61,M32.9 OTHER CERVICAL DISC DEGENERATION, UNSP CERVICAL RE anti D68.61,Z79.01 Wound Care anti Medicare Annual Wellness - Initial S99.929A,T14.13XXA,R52 Foot injury NECK PAIN anti LYMPHOCYTOSIS anticoagulant D72.820,I10,R73.03,M81.0 Hypertension FALL stitch removal FALL ER Follow-up (Adult) wound care Reason for Visit Essential (primary) hypertension GERD (gastroesophageal reflux disease) Essential (primary) hypertension Laceration Diabetes mellitus type 2 in obese History of cervical spinal arthrodesis Essential (primary) hypertension History of CVA (cerebrovascular accident) Abrasion Falls Abrasion Encounters Encounter Location(s) Ar rival/Admit Date Discharge/Depart Date Provider(s) Registered Outpatient [facility] July 04, 2019 9:36am Jose R Church DO Registered Outpatient [facility] July 10, 2019 8:20pm Jose R Church DO Registered Outpatient [facility] July 19, 2019 6:42pm Jose R Church DO Registered Outpatient [facility] July 26, 2019 10:01am Jose R Church DO Registered Referred [facility] July 29, 2019 10:08am Jose R Church DO Registered Outpatient [facility] August 01, 2019 9:25am Jose R Church DO Registered Outpatient [facility] August 01, 2019 1:53pm Jose R Church DO Registered Outpatient [facility] August 07, 2019 4:22pm Jose R Church DO Registered Outpatient [facility] August 15, 2019 4:08pm Jose R Church DO Registered Outpatient [facility] August 28, 2019 7:43am Jose R Church DO Registered Outpatient [facility] September 04, 2019 8:48am Jose R Church DO Registered Outpatient [facility] September 04, 2019 10:20am Jose R Church DO Registered Referred [facility] September 08, 2019 1:38pm CORY BAGLEY MD Registered Outpatient [facility] September 11, 2019 2:06pm Jose R Church DO Registered Outpatient [facility] September 18, 2019 3:58pm Jose R Church DO Registered Outpatient [facility] September 26, 2019 2:55pm Jose R Church DO Registered Outpatient [facility] October 02, 2019 11:52am Jose R Church DO Registered Outpatient [facility] October 02, 2019 4:24pm Jose R Church DO Registered Outpatient [facility] October 09, 2019 11:17am Jose R Church DO Registered Outpatient [facility] October 18, 2019 7:57am Jose R Church DO Departed Physician/Provider Office Visit [facility] October 21, 2019 12:32pm October 21, 2019 1:44pm Jose R Church DO Departed Emergency [facility]-Emergency Room ER October 22, 2019 2:20pm October 22, 2019 5:56pm null Registered Outpatient [facility] October 23, 2019 7:47am Jose R Church DO Departed Physician/Provider Office Visit [facility] October 28, 2019 9:59am October 28, 2019 11:04am Jose R Church DO Registered Referred [facility]-Cat Scan October 28, 2019 11:28am Jose R Church DO Registered Outpatient [facility] October 31, 2019 8:34am Jose R Church DO Registered Outpatient [facility] October 31, 2019 2:15pm Jose R Church DO Registered Outpatient [facility] Internal Medicine November 04, 2019 11:51am Master Muñoz MD Registered Outpatient [facility] November 06, 2019 7:53am Jose R Church DO Registered Referred [facility]-EKG November 11, 2019 6:48am Ross Kaba Registered Outpatient [facility] November 21, 2019 9:47am Jose R Church DO Registered Referred [facility]-Lab Drop Off November 21, 2019 1:54pm Denisse Best MD Registered Referred [facility]-Laboratory November 24, 2019 8:01am Jose R Church DO Departed Physician/Provider Office Visit [facility] November 25, 2019 8:36am November 25, 2019 10:01am Jose R Church DO Registered Outpatient [facility] November 27, 2019 7:20pm Jose R Church DO Registered Referred [facility]-Radiology December 02, 2019 9:52am Jose R Church DO Registered Outpatient [facility] December 02, 2019 10:48am Jose R Church DO Registered Outpatient [facility] December 04, 2019 10:44am Jose R Church DO Registered Outpatient [facility] December 04, 2019 10:53am Jose R Church DO Registered Outpatient [facility] December 11, 2019 7:35pm Jose R Church DO Departed Physician/Provider Office Visit [facility] December 16, 2019 2:53pm December 16, 2019 4:56pm Jose R Church DO Registered Referred [facility]-Laboratory December 17, 2019 11:17am Jose R Church DO Registered Referred [facility]-Laboratory December 22, 2019 12:53pm Jose R Church DO Registered Referred [facility]-MRI/MRA December 31, 2019 2:17pm Yan Fermin DO Registered Outpatient [facility] January 02, 2020 9:36am Jose R Church DO Registered Outpatient [facility] January 08, 2020 8:58am Jose R Church DO Registered Outpatient [facility] January 15, 2020 8:27am Jose R Church DO Registered Outpatient [facility] January 22, 2020 3:59pm Jose R Church DO Registered Outpatient [facility] January 26, 2020 8:53am Jose R Church DO Registered Outpatient [facility] January 29, 2020 7:53am Jose R Church DO Registered Outpatient [facility] February 02, 2020 8:40am Jose R Church DO Registered Outpatient [facility] February 02, 2020 10:32am Jose R Church DO Registered Referred [facility]-Laboratory February 05, 2020 11:56am Jose R Church DO Registered Outpatient [facility] February 12, 2020 12:33pm Jose R Church DO Registered Outpatient [facility] February 19, 2020 7:37am Jose R Church DO Departed Physician/Provider Office Visit [facility] February 20, 2020 11:57am February 20, 2020 12:29pm Anum trevino Registered Outpatient [facility] February 26, 2020 5:20pm Jose R Church DO Registered Outpatient [facility] March 04, 2020 7:15am Jose R Church DO Registered Outpatient [facility] March 04, 2020 10:51am Jose R Church DO Departed Physician/Provider Office Visit [facility] March 08, 2020 9:12am March 08, 2020 10:34am Jose R Church DO Registered Outpatient [facility] March 11, 2020 7:22pm Jose R Church DO Registered Outpatient [facility] March 18, 2020 4:33pm Jose R Church DO Registered Outpatient [facility] March 25, 2020 1:21pm Jose R Church DO Registered Referred [facility]-Radiology March 30, 2020 1:57pm Jose R Church DO Departed Physician/Provider Office Visit [facility] March 30, 2020 2:15pm March 30, 2020 3:31pm Anum carbajal Registered Outpatient [facility] April 01, 2020 7:14am Jose R Church DO Registered Outpatient [facility] April 06, 2020 12:00pm Jose R Church DO Registered Outpatient [facility] April 15, 2020 9:22am Jose R Church DO Registered Outpatient [facility] April 23, 2020 8:57am Jose R Church DO Departed Emergency [facility]-Emergency Room ER May 02, 2020 7:57am May 02, 2020 9:17am null Registered Outpatient [facility] May 04, 2020 7:17am Jose R Church DO Registered Outpatient [facility] May 04, 2020 2:13pm Jose R Church DO Registered Outpatient [facility] May 06, 2020 8:14am Jose R Church DO Registered Referred [facility]Labor[facility] May 10, 2020 11:39am DAGOBERTO PARR MD Registered Outpatient [facility] May 13, 2020 2:50pm Jose R Church DO Registered Outpatient [facility] May 20, 2020 7:45pm Jose R Church DO Registered Outpatient [facility] May 27, 2020 7:39am Jose R Church DO Registered Outpatient [facility] May 27, 2020 8:29am Jose R Church DO Registered Outpatient [facility] June 03, 2020 11:35am Jose R Church DO Registered Outpatient [facility] June 11, 2020 8:51am Jose R Church DO Registered Referred [facility]Labor[facility] June 11, 2020 11:26am Jose R Church DO Departed Physician/Provider Office Visit [facility] June 14, 2020 10:09am June 14, 2020 11:15am Jose R bethea DO Departed Emergency [facility]-Emergency Room ER June 15, 2020 11:47am June 15, 2020 1:26pm null Registered Outpatient [facility] June 17, 2020 8:45pm Jose R Church DO Departed Physician/Provider Office Visit [facility] June 24, 2020 11:13am June 24, 2020 12:25pm Magy Howard NP Departed Emergency [facility]-Emergency Room ER June 27, 2020 5:06pm June 27, 2020 9:00pm null Departed Physician/Provider Office Visit [facility] June 29, 2020 11:05am June 29, 2020 12:52pm Jose R Church DO Departed Physician/Provider Office Visit [facility] July 02, 2020 10:50am July 02, 2020 11:44am Magy Howard NP Recent Diagnosis Onset Date Essential (primary) hypertension GERD (gastroesophageal reflux disease) Essential (primary) hypertension Laceration Diabetes mellitus type 2 in obese History of cervical spinal arthrodesis Essential (primary) hypertension History of CVA (cerebrovascular accident) Abrasion Falls Abrasion Assessments Diagnosis Onset Date Res olution Status Essential (primary) hypertension chronic GERD (gastroesophageal reflux disease) chronic Essential (primary) hypertension chronic Laceration acute Diabetes mellitus type 2 in obese acute History of cervical spinal arthrodesis acute Essential (primary) hypertension chronic History of CVA (cerebrovascular accident) chronic Abrasion acute Falls acute Abrasion acute Family History Relationship Condition A ge at Onset Recorded Date/Time Not Specified Diabetes mellitus Unknown Malignant neoplasm of colon Unknown Cardiac disease Unknown Malignant neoplasm of uterus Unknown Rheumatic fever Unknown Rheumatoid arthritis U nknown Not Specified Alcohol abuse Unknown Small cell carcinoma of lung Unknown Hepatic cirrhosis Unkn own Not Specified Malignant neoplasm of breast Unknown Functional Status No Functional Status information available Goals Goals may be documented in an alternate section. 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 Lot Number Vaccine Information Statement (VIS) Deta il pneumococcal conjugate PCV 13 Decemb er 2013 zoster (shingles) vaccine, live, sc April 03, 2013 zoster (shingles) vaccine, live, sc December 11, 2017 influenza vaccine, inactivated Octob er 2018 [id number] influenza vaccine, inactivated Octob er 2011 influenza vaccine, inactivated mber 2012 influenza vaccine, inactivated Octob er 2013 influenza vaccine, inactivated December 082017 influenza vaccine, inactivated Novem lila 2015 influenza vaccine, inactivated Octob er 2014 influenza vaccine, inactivated Septe mber 2015 influenza vaccine, inactivated Octob er 2016 influenza vaccine, inactivated Novem lila 2019 [id number] tuberculin skin test August 25, 2015 pneumococcal polysaccharide PPV23 vaccine November 28, 2017 tetanus, diphtheria, acell pertussis 7yrs &up April 03, 2013 Mental Status Observation Response Hardy e Recorded Impairments Mental/Cognitive June 27, 2020 5:06pm Medical Equipment No Medical Equipment Information available Insurance Providers Guarantor [place] Address [address] [place] [address] Contact Info. Home Phone: Payer Policy Id Coverage Id Subscriber's Name Subscriber Id Effective Date Expiration Date MEDICARE [place]STATE [id number] [place] [id number] FOR LIFE [id number] [place] [id number] MEDICARE [id number] [place] [id number] Self Pay Self N/A [facility] [id number] [place] [id number] [place] [facility] [id number] [place] [id number] Plan of Treatment F/u ER for L elbow contusion, wound, bleeding. 40 mins removing bandage as she is very high risk to re-bleed if any clot was broken. Washed wound with soap and water. Bacitracin ointment, Telfa, rap around gauze, then coban. F/u 2 days with ARY Howard for wound care and jace ck. Falls. Consult Physical Therapy. Use wheeled walker at home. Abnormal CT demonstrating some calcification of daniel. They do not want to see N eurology/Jay. MRI done there I believe. Dr. Chappell/RAEANN gave injection and headaches resolved. abrasion to left outer elbow with scab in place. Suture removed. Area cleaned and dressed with sterile dressing. Will send antibiotic and muporicin to the pharmacy with dress ing supplies. Follow up in the office in 1 week if not improved. Advised patient she could have possibly fractured the 5th toe. After waiting for 1 hour we still did not have the x-ray report. We yamilet taped the 4th and 5th toes and wrapped the f oot in an Anthony bandage. We will call her tomorrow with the results and a plan of care. New DM2. They would like to try diet before starting Metformin. Labs prior to f/u 6 months. Hx cervical fusion and chronic headaches. Now getting injections in neck with Colleen Benz. Administrative Encounter. MOLST form filled out and letters on scripts to allow daughter Zuri Mcmanus both on [place] at [place] to get her meds at [facility] and for Margoth [employer]is to be her health care proxy. Constant headache. Imaging of cervical fusion normal. I strongly suspect this is from her neck. Consult Neurosurgery. She has f/u with Neurology 12/22/19. No change of meds. Anti-coagulation with Coumadin INR 2.5-3.5 and down to 1.4. FS level tomorrow A ND PT/INR blood draw with CBC. I will call them tomorrow. 30 mins face to face with over 50% counse ling. Presyncope, possible chronotropic incompetence, headache and cervical spine tend erness with PMH cervical fusion. I called Dr. Bowling and he reviewed CT Cervical spine and sees no fracture. He suggested possibly X-Rays C-spine so I will get them. She has MRA today and EEG tomorrow. 9/10 headache. Fioricet takes the edge off. She is allergic to codiene-anaphylaxis and also Demoral. increase Gabapentin from 100mg AM, 500mg QHS to 500mg BID. 9/10 pain on top of head. F/u one month. Pre-syncope with headache on Coumadin. CT head without and with contrast today, CT neck today. UA essentially without LE, N. Collapse with HTN which is moderately high. She has Cardiology appt in 6 days. HR 48. She could have chronological incompetence requiring pacemaker. She will likely need non-w alking Nuclear Stres Test. F/u 4 weeks. HTN not really controlled well. F/u 4 weeks. HTN not controlled at 160/98, 180/95. Increase Lisinopril from 10mg to 20mg lorene ly. F/u 2 moonths with BP's from home. GERD. Discontinue Dexilant and start Prontonix 40mg daily. Medicare Annual Wellness Exam. Cervical Fusion and headaches vastly improved s/p injection into neck. Blurry vison. Hx DM2. Last A1c 6.4. Finger Stick Glucose 114. Consult Ophtha lmology. Future Tests Future scheduled test information is unavailable Pending Tests Pending diagnostic test information is unavailable Future Visits Future appointment information is unavailable Referrals to Other Providers Reason for Referral Referral Start Date Provider Provider Conta ct Information Provider Address M54.2 - Cervicalgia,R51 - Headache,Z98.1 - Arthrodesis status,D68.61 - Antiphospholipid syndrome December 16, 2019 YAN FERMIN Future Procedures Future procedure information is unavailable Future Medications Future medication information is unavailable Patient Instructions DASH Eating Plan (GEN) Hypertension (GEN) DASH Eating Plan (GEN) Hypertension (GEN) Contusion in Adults (ED) Skin Tear (ED) Social History Smoking Status Status Date of Observation Former smoker June 27, 2020 6: 24pm Observation Status Observation Response Hardy e of Response Smoking Status Former smoker June 27, 2020 6:24pm Assigned Sex Female Vital Signs Vital Reading Result Ref erence Range Collection Date/Time Height 58 [in_i] October 21, 2019 1:38pm Weight 160.37 [lb_av] October 21, 2019 1:38pm Body Temperature 97.5 [degF] 97.6-99.5 October 21, 2019 1:38pm Heart Rate 52 /min 60-100 October 21, 2019 1:38pm Respiratory rate 18 /min 12-24 October 21, 2019 1:38pm Oxygen saturation by Pulse oximetry 96 % 95- 100 October 21, 2019 1:38pm BMI (Body Mass Index) 33.5 kg/m2 October 21, 2019 1:38pm Height 58 [in_i] October 22, 2019 3:50pm Weight 158.00 [lb_av] October 22, 2019 3:50pm Body Temperature 97.7 [degF] 97.6-99.5 October 22, 2019 6:48pm Heart Rate 62 /min 60-100 October 22, 2019 6:48pm Respiratory rate 16 /min 12-24 October 22, 2019 6:48pm Oxygen saturation by Pulse oximetry 98 % 95- 100 October 22, 2019 6:48pm BP Systolic 160 mm[Hg] October 22, 2019 6:48pm BP Diastolic 81 mm[Hg] October 22, 2019 6:48pm Height 58 [in_i] October 28, 2019 11:01am Weight 154.50 [lb_av] October 28, 2019 11:01am Body Temperature 98.2 [degF] 97.6-99.5 October 28, 2019 11:01am Heart Rate 48 /min 60-100 October 28, 2019 11:01am Respiratory rate 18 /min -October 28, 2019 11:01am Oxygen saturation by Pulse oximetry 94 % 95- 100 October 28, 2019 11:01am BP Systolic 138 mm[Hg] October 28, 2019 11:01am BP Diastolic 80 mm[Hg] October 28, 2019 11:01am BMI (Body Mass Index) 32.3 kg/m2 October 28, 2019 11:01am Height 58 [in_i] November 25, 2019 9:40am Weight 165.00 [lb_av] November 25, 2019 9:40am Body Temperature 98.1 [degF] 97.6-99.5 November 25, 2019 9:40am Heart Rate 56 /min 60-100 November 25, 2019 9:40am Respiratory rate 158 /min -November 25, 2019 9:40am Oxygen saturation by Pulse oximetry 98 % 95- 100 November 25, 2019 9:40am BP Systolic 134 mm[Hg] November 25, 2019 9:40am BP Diastolic 80 mm[Hg] November 25, 2019 9:40am BMI (Body Mass Index) 34.4 kg/m2 November 25, 2019 9:40am Height 58 [in_i] December 16, 2019 4:12pm Weight 161.00 [lb_av] December 16, 2019 4:12pm Body Temperature 97.9 [degF] 97.6-99.5 December 16, 2019 4:12pm Heart Rate 52 /min 60-100 December 16, 2019 4:12pm Respiratory rate 18 /min -December 16, 2019 4:12pm Oxygen saturation by Pulse oximetry 97 % 95- 100 December 16, 2019 4:12pm BMI (Body Mass Index) 33.6 kg/m2 December 16, 2019 4:12pm Height 56 [in_i] February 20, 2020 12:58pm Weight 158.12 [lb_av] February 20, 2020 12:58pm Body Temperature 98.1 [degF] 97.6-99.5 February 20, 2020 12:58pm Heart Rate 56 /min 60-100 February 20, 2020 12:58pm Respiratory rate 18 /min 12-24 February 20, 2020 12:58pm Oxygen saturation by Pulse oximetry 95 % 95- 100 February 20, 2020 12:58pm BP Systolic 110 mm[Hg] February 20, 2020 12:58pm BP Diastolic 72 mm[Hg] February 20, 2020 12:58pm BMI (Body Mass Index) 35.4 kg/m2 February 20, 2020 12:58pm Height 58 [in_i] March 08, 2020 10:22am Weight 158.12 [lb_av] March 08, 2020 10:22am Body Temperature 98.2 [degF] 97.6-99.5 March 08, 2020 10:22am Heart Rate 100 /min 60-1 00 March 08, 2020 10:22am Respiratory rate 18 /min -March 08, 2020 10:22am Oxygen saturation by Pulse oximetry 97 % 95- 100 March 08, 2020 10:22am BP Systolic 122 mm[Hg] March 08, 2020 10:22am BP Diastolic 78 mm[Hg] March 08, 2020 10:22am BMI (Body Mass Index) 33.0 kg/m2 March 08, 2020 10:22am Height 58 [in_i] March 30, 2020 3:17pm Weight 158.00 [lb_av] March 30, 2020 3:17pm Body Temperature 97.8 [degF] 97.6-99.5 March 30, 2020 3:17pm Heart Rate 49 /min 60-100 March 30, 2020 3:17pm Respiratory rate 18 /min 12-March 30, 2020 3:17pm Oxygen saturation by Pulse oximetry 93 % 95- 100 March 30, 2020 3:17pm BP Systolic 116 mm[Hg] March 30, 2020 3:17pm BP Diastolic 80 mm[Hg] March 30, 2020 3:17pm BMI (Body Mass Index) 33.0 kg/m2 March 30, 2020 3:17pm Height 58 [in_i] May 02, 2020 9:19am Weight 155.00 [lb_av] May 02, 2020 9:19am Body Temperature 98.7 [degF] 97.6-99.5 May 02, 2020 9:18am Heart Rate 60 /min 60-100 May 02, 2020 9:18am Respiratory rate 16 /min 12-May 02, 2020 9:18am Oxygen saturation by Pulse oximetry 96 % 95- 100 May 02, 2020 9:18am BP Systolic 156 mm[Hg] May 02, 2020 9:18am BP Diastolic 82 mm[Hg] May 02, 2020 9:18am Height 58 [in_i] June 14, 2020 10:13am Weight 156.00 [lb_av] June 14, 2020 10:13am Body Temperature 98.0 [degF] 97.6-99.5 June 14, 2020 10:20am Heart Rate 54 /min 60-100 June 14, 2020 10:20am Respiratory rate 18 /min -June 14, 2020 10:20am Oxygen saturation by Pulse oximetry 97 % 95- 100 June 14, 2020 10:20am BP Systolic 144 mm[Hg] June 14, 2020 10:20am BP Diastolic 90 mm[Hg] June 14, 2020 10:20am BMI (Body Mass Index) 32.5 kg/m2 June 14, 2020 10:13am Height 58 [in_i] June 15, 2020 12:09pm Weight 156.00 [lb_av] June 15, 2020 12:09pm Body Temperature 97.5 [degF] 97.6-99.5 June 15, 2020 11:48am Heart Rate 52 /min 60-100 June 15, 2020 11:48am Respiratory rate 16 /min -June 15, 2020 11:48am Oxygen saturation by Pulse oximetry 96 % 95- 100 June 15, 2020 11:48am BP Systolic 139 mm[Hg] June 15, 2020 11:48am BP Diastolic 65 mm[Hg] June 15, 2020 11:48am Height 58 [in_i] June 24, 2020 11:43am Weight 158.00 [lb_av] June 24, 2020 11:43am Body Temperature 97.3 [degF] 97.6-99.5 June 24, 2020 11:43am Heart Rate 78 /min 60-100 June 24, 2020 11:43am Respiratory rate 18 /min -June 24, 2020 11:43am Oxygen saturation by Pulse oximetry 98 % 95- 100 June 24, 2020 11:43am BP Systolic 110 mm[Hg] June 24, 2020 11:43am BP Diastolic 62 mm[Hg] June 24, 2020 11:43am BMI (Body Mass Index) 33.0 kg/m2 June 24, 2020 11:43am Height 58 [in_i] June 27, 2020 5:41pm Weight 160.00 [lb_av] June 27, 2020 5:41pm Body Temperature 98.2 [degF] 97.6-99.5 June 27, 2020 9:18pm Heart Rate 68 /min 60-100 June 27, 2020 9:18pm Respiratory rate 16 /min -June 27, 2020 9:18pm Oxygen saturation by Pulse oximetry 100 % 95-100 June 27, 2020 9:18pm BP Systolic 159 mm[Hg] June 27, 2020 9:18pm BP Diastolic 73 mm[Hg] June 27, 2020 9:18pm Height 58 [in_i] June 29, 2020 11:11am Weight 156.00 [lb_av] June 29, 2020 11:11am Body Temperature 97.6 [degF] 97.6-99.5 June 29, 2020 11:11am Heart Rate 74 /min 60-100 June 29, 2020 11:11am Respiratory rate 18 /min -June 29, 2020 11:11am Oxygen saturation by Pulse oximetry 98 % 95- 100 June 29, 2020 11:11am BP Systolic 138 mm[Hg] June 29, 2020 11:11am BP Diastolic 78 mm[Hg] June 29, 2020 11:11am BMI (Body Mass Index) 32.5 kg/m2 June 29, 2020 11:11am Height 58 [in_i] July 02, 2020 11:17am Weight 157.00 [lb_av] July 02, 2020 11:17am Body Temperature 97.0 [degF] 97.6-99.5 July 02, 2020 11:17am Heart Rate 68 /min 60-100 July 02, 2020 11:17am Respiratory rate 16 /min -July 02, 2020 11:17am Oxygen saturation by Pulse oximetry 98 % 95- 100 July 02, 2020 11:17am BP Systolic 132 mm[Hg] July 02, 2020 11:17am BP Diastolic 72 mm[Hg] July 02, 2020 11:17am BMI (Body Mass Index) 32.8 kg/m2 July 02, 2020 11:17am
--- OUTSIDE RECORDS SUMMARY | 2020-09-16 10:26 | CCD | Continuity of Care Document ---
Author Author [facility] Address [address] [place] [address] Phone Support Name Relationship Address [place] [address] [place] [address] CORY BAGLEY PRS [address] [address] Apollo Valente PRS [address] [place] [address] Master Muñoz PRS [address] [place] [address] Love, Ross PRS [facility] [place] [address] EstephaniaDenisse kilpatrick PRS [address] [place] [address] YAN FERMIN PRS [facility] [place] [address] Anum Bender PRS [address] [place] [address] DAGOBERTO PARR PRS [address] [place] [address] [place] [address] Apollo Varela PRS [address] [place] [address] Allergies, Adverse Reactions, Alerts Allergen Type Severity [...] 11:30am Afluria Qd (3yr up)(PF) (flu vac [id number] 36mos up(PF)) Discontinued 0.5 ML IM 1 [...] 28, 2019 1:46pm November 25, 2019 9:01am Msjoskrezi-Ytsfqejtpzqld-Ekvs Discontinued 1 CAP PO Q12H November 25, 2019 9: 00am February 20, 2020 12:04pm Afluria Qd (3yr up)(PF) (flu vac [id number] 36mos up(PF)) Discontinued 0.5 ML IM 1 [...] (primary) hypertension Active Osteoporosis Active [place] Active shelter current use of anticoagulant Active Fibromyalgia Active [...] June 11, 2020 11:35am 9.2 10e3/uL 4.45-10.71 [facility], [address] [place] [address] White Blood Count May 10, 2020 11:50a m 14.1 10e3/uL 4.45-10.71 [facility], [address] [place] [address] White Blood Count December 17, 2019 11:22am 10.9 10e3/uL 4.45-10.71 [facility], [address] [place] [address] White Blood Count November 24, 2019 8:21am 8.8 10e3/uL 4.45-10.71 [facility], [address] [place] [address] White Blood Count November 21, 2019 2:36pm 10.1 10e3/uL 4.45-10.71 [facility], [address] [place] [address] White Blood Count October 22, 2019 3:45pm 14.4 10e3/uL 4.45-10.71 [facility], [address] [place] [address] Red Blood Count June 11, 2020 11:35am 4.74 10e6/uL 4.20-5.40 [facility], [address] [place] [address] Red Blood Count May 10, 2020 11:50am 4.64 10e6/uL 4.20-5.40 [facility], [address] [place] [address] Red Blood Count December 17, 2019 11:22am 4.56 10e6/uL 4.20-5.40 [facility], [address] [place] [address] Red Blood Count November 24, 2019 8:21am 4.39 10e6/uL 4.20-5.40 [facility], [address] [place] [address] Red Blood Count November 21, 2019 2:36pm 4.50 10e6/uL 4.20-5.40 [facility], [address] [place] [address] Red Blood Count October 22, 2019 3:45pm 5.04 10e6/uL 4.20-5.40 [facility], [address] [place] [address] Hemoglobin June 11, 2020 11:35am 14.6 g/dL 10.7-15.4 [facility], [address] [place] [address] Hemoglobin May 10, 2020 11:50am 14.2 g/dL 10.7-15.4 [facility], [address] [place] [address] Hemoglobin December 17, 2019 11:22am 14.5 g/dL 10.7-15.4 [facility], [address] [place] [address] Hemoglobin November 24, 2019 8:21am 14.0 g/dL 10.7-15.4 [facility], [address] [place] [address] Hemoglobin November 21, 2019 2:36pm 14.2 g/dL 10.7-15.4 [facility], [address] [place], [place] [id number] Hemoglobin October 22, 2019 3:45pm 15.9 g/dL 10.7-15.4 [facility], [address] [place], [place] [id number] Hematocrit June 11, 2020 11:35am 44.6 % 37-47 [facility], [address] [place] [address] Hematocrit May 10, 2020 11:50am 42.5 % 37-47 [facility], [address] [place] [address] Hematocrit December 17, 2019 11:22am 43.5 % 37-47 [facility], [address] [place] [address] Hematocrit November 24, 2019 8:21am 41.1 % 37-47 [facility], [address] [place] [address] Hematocrit November 21, 2019 2:36pm 42.1 % 37-47 [facility], [address] [place] [address] Hematocrit October 22, 2019 3:45pm 47.4 % 37-47 [facility], [address] [place], [place] [id number] Mean Corpuscular Volume June 11:35am 94.1 fl 80[facility], [address] [place] [address] 52751 Mean Corpuscular Volume May 10, 2020 11:50am 91.6 fl 80[facility], [address] [place] [address] 80225 Mean Corpuscular Volume December 16 11:22am 95.4 fl 80[facility], [address] [place] [address] 88169 Mean Corpuscular Volume November 24, 2019 8:21am 93.6 fl 80[facility], [address] [place] [address] 65369 Mean Corpuscular Volume November 21, 2019 2:36pm 93.6 fl 80[facility], [address] [place] [address] 00736 Mean Corpuscular Volume October 22, 2019 3:45pm 94.0 fl [facility], [address] [place] [address] 12942 Mean Corpuscular Hemoglobin June 11, 2020 11:35am 30.8 pg 27-31 [facility], [address] [place] [address] 18689 Mean Corpuscular Hemoglobin May 10, 2020 11:50am 30.6 pg 27-31 [facility], [address] [place] [address] 36588 Mean Corpuscular Hemoglobin December 11:22am 31.8 pg 27-31 [facility], [address] [place] [address] 11243 Mean Corpuscular Hemoglobin November 232019 8:21am 31.9 pg 27-31 [facility], [address] [place] [address] 46385 Mean Corpuscular Hemoglobin November 202019 2:36pm 31.6 pg 27-31 [facility], [address] [place] [address] 91546 Mean Corpuscular Hemoglobin October 212019 3:45pm 31.5 pg 27-31 [facility], [address] [place] [address] 12761 Mean Corpuscular Hemoglobin Concent June 11, 2020 11:35am 32.7 g/dl 33-37 [facility], [address] [place] [address] 26247 Mean Corpuscular Hemoglobin Concent May 10, 2020 11:50am 33.4 g/dl 3337 [facility], [address] [place] [address] Mean Corpuscular Hemoglobin Concent December 17, 2019 11:22am 33.3 g/dl 37 [facility], [address] [place] [address] Mean Corpuscular Hemoglobin Concent November 24, 2019 8:21am 34.1 g/dl [address] [facility], [address] [place] [address] Mean Corpuscular Hemoglobin Concent November 21, 2019 2:36pm 33.7 g/dl [address] [place] [address] LABORATORY, [address] [place] [address] Mean Corpuscular Hemoglobin Concent October 22, 2019 3:45pm 33.5 g/dl [facility], [address] [place] [address] Red Cell Distribution Width June 11, 2020 11:35am 16 % 11-15 [facility], [address] [place] [address] Red Cell Distribution Width May 10, 2020 11:50am 16 % 11-15 [facility], [address] [place] [address] Red Cell Distribution Width December 11:22am 16 % 11-15 [facility], [address] [place] [address] Red Cell Distribution Width November 232019 8:21am 16 % 11-15 [facility], [address] [place] [address] Red Cell Distribution Width November 202019 2:36pm 16 % 11-15 [facility], [address] [place] [address] Red Cell Distribution Width October 212019 3:45pm 16 % 11-15 [facility], [address] [place] [address] Platelet Count June 11, 2020 11:35am 329 10e3/ul 130-472 [facility], [address] [place] [address] Platelet Count May 10, 2020 11:50am 363 10e3/ul 130-472 [facility], [address] [place] [address] Platelet Count December 17, 2019 11:22am 289 10e3/ul 130-472 [facility], [address] [place] [address] Platelet Count November 24, 2019 8:21am 304 10e3/ul 130-472 [facility], [address] [place] [address] 25978 Platelet Count November 21, 2019 2:36pm 303 10e3/ul 130-472 [facility], [address] [place] [address] 65257 Platelet Count October 22, 2019 3:45pm 280 10e3/ul 130-472 [facility], [address] [place] [address] 84299 Mean Platelet Volume June 11 020 11:35am 10.3 fl 9.1-13.1 [facility], [address] [place] [address] Mean Platelet Volume May 10 11:50am 10.4 fl 9.1-13.1 [facility], [address] [place] [address] Mean Platelet Volume December 17, 2019 11:22a m 10.9 fl 9.1-13.1 [facility], [address] [place] [address] 88875 Mean Platelet Volume November 23 0 8:21am 11.1 fl 9.1-13.1 [facility], [address] [place] [address] 55639 Mean Platelet Volume November 20 0 2:36pm 10.5 fl 9.1-13.1 [facility], [address] [place] [address] Mean Platelet Volume October 21 0 3:45pm 10.7 fl 9.1-13.1 [facility], [address] [place] [address] 77013 Neutrophils (%) (Auto) June 11, 2020 11:35am 31.9 % [address] [place] [address] LABORATORY, [address] [place] [address] 19397 Neutrophils (%) (Auto) May 10, 2020 11:50am 51.9 % [address] [facility], [address] [place] [address] 91767 Neutrophils (%) (Auto) December 16 0 11:22am 31.6 % [address] [place] [address] LABORATORY, [address] [place] [address] 46476 Neutrophils (%) (Auto) November 23, 020 8:21am 36.7 % [address] [place] [address] LABORATORY, [address] [place] [address] 31126 Neutrophils (%) (Auto) November 20, 020 2:36pm 31.8 % [address] [place] [address] LABORATORY, [address] [place] [address] 65274 Neutrophils (%) (Auto) October 21, 020 3:45pm 57.6 % 41-77 [facility], [address] [place] [address] 04490 Absolute Neutrophil June 11 11:35am 2.9 # 1.7-7.6 [facility], [address] [place] [address] 28476 Absolute Neutrophil May 10 0 11:50am 7.3 # 1.7-7.6 [facility], [address] [place] [address] Absolute Neutrophil December 17, 2019 11:22am 3.4 # 1.7-7.6 [facility], [address] [place] [address] Absolute Neutrophil November 24, 2019 8:21a m 3.2 # 1.7-7.6 [facility], [address] [place] [address] 74990 Absolute Neutrophil November 21, 2019 2:36p m 3.2 # 1.7-7.6 [facility], [address] [place] [address] Absolute Neutrophil October 22, 2019 3:45p m 8.3 # 1.7-7.6 [facility], [address] [place] [address] 94187 Lymphocytes (%) (Auto) June 11, 2020 11:35am 50.4 % 14-46 [facility], [address] [place] [address] 67315 Lymphocytes (%) (Auto) May 10, 2020 11:50am 33.3 % 14-46 [facility], [address] [place] [address] Lymphocytes (%) (Auto) December 16 0 11:22am 50.2 % 14-46 [facility], [address] [place] [address] 61982 Lymphocytes (%) (Auto) November 23 8:21am 41.0 % 14-46 [facility], [address] [place] [address] Lymphocytes (%) (Auto) November 20 020 2:36pm 47.7 % 14-46 [facility], [address] [place] [address] 85787 Lymphocytes (%) (Auto) October 21 020 3:45pm 27.0 % 14-46 [facility], [address] [place] [address] 68508 Lymphocytes # (Auto) June 11, 020 11:35am 4.6 # 0.6-4.6 [facility], [address] [place] [address] 28219 Lymphocytes # (Auto) May 10 11:50am 4.7 # 0.6-4.6 [facility], [address] [place] [address] 11439 Lymphocytes # (Auto) December 17, 2019 11:22a m 5.5 # 0.6-4.6 [facility], [address] [place] [address] 89183 Lymphocytes # (Auto) November 23 0 8:21am 3.6 # 0.6-4.6 [facility], [address] [place] [address] 07362 Lymphocytes # (Auto) November 20 0 2:36pm 4.8 # 0.6-4.6 [facility], [address] [place] [address] 87952 Lymphocytes # (Auto) October 21 0 3:45pm 3.9 # 0.6-4.6 [facility], [address] [place] [address] 39757 Monocytes (%) (Auto) June 11, 020 11:35am 11.9 % 4-12 [facility], [address] [place] [address] 25838 Monocytes (%) (Auto) May 10 11:50am 13.1 % 4-12 [facility], [address] [place] [address] 18491 Monocytes (%) (Auto) December 17, 2019 11:22a m 12.0 % 4-12 [facility], [address] [place] [address] 04778 Monocytes (%) (Auto) November 23 0 8:21am 11.4 % 4-12 [facility], [address] [place] [address] 33752 Monocytes (%) (Auto) November 20 0 2:36pm 10.8 % 4-12 [facility], [address] [place] [address] 95720 Monocytes (%) (Auto) October 21 0 3:45pm 8.4 % 4-12 [facility], [address] [place] [address] 77765 Monocytes # June 11, 2020 11:35am 1.1 # 0.2-1.2 [facility], [address] [place] [address] 92985 Monocytes # May 10, 2020 11:50am 1.9 # 0.2-1.2 [facility], [address] [place] [address] 98631 Monocytes # December 17, 2019 11:22am 1.3 # 0.2-1.2 [facility], [address] [place] [address] 62875 Monocytes # November 24, 2019 8:21am 1.0 # 0.2-1.2 [facility], [address] [place] [address] 26205 Monocytes # November 21, 2019 2:36pm 1.1 # 0.2-1.2 [facility], [address] [place] [address] 92079 Monocytes # October 22, 2019 3:45pm 1.2 # 0.2-1.2 [facility], [address] [place] [address] 74954 Eosinophils (%) (Auto) June 11, 2020 11:35am 4.9 % 0-7 [facility], [address] [place] [address] 63571 Eosinophils (%) (Auto) May 10, 2020 11:50am 1.0 % 0-7 [facility], [address] [place] [address] 56735 Eosinophils (%) (Auto) December 16 0 11:22am 5.1 % 0-7 [facility], [address] [place] [address] 88972 Eosinophils (%) (Auto) November 23, 020 8:21am 9.8 % 0-7 [facility], [address] [place] [address] 08196 Eosinophils (%) (Auto) November 20, 020 2:36pm 8.6 % 0-7 [facility], [address] [place] [address] 89924 Eosinophils (%) (Auto) October 21, 020 3:45pm 5.9 % 0-7 [facility], [address] [place] [address] 23056 Absolute Eosinophils (CBC) June 11, 2020 11:35am 0.5 # 0.0-0.5 [facility], [address] [place] [address] 13040 Absolute Eosinophils (CBC) May 102019 11:50am 0.1 # 0.0-0.5 [facility], [address] [place] [address] 60941 Absolute Eosinophils (CBC) December 17, 2019 11:22am 0.6 # 0.0-0.5 [facility], [address] [place] [address] Absolute Eosinophils (CBC) November 8:21am 0.9 # 0.0-0.5 [facility], [address] [place] [address] 96972 Absolute Eosinophils (CBC) November 2:36pm 0.9 # 0.0-0.5 [facility], [address] [place] [address] Absolute Eosinophils (CBC) October 3:45pm 0.8 # 0.0-0.5 [facility], [address] [place] [address] Basophils (%) (Auto) June 11 020 11:35am 0.8 % 0.4-1.3 [facility], [address] [place] [address] 66108 Basophils (%) (Auto) May 10 11:50am 0.3 % 0.4-1.3 [facility], [address] [place] [address] Basophils (%) (Auto) December 17, 2019 11:22a m 0.9 % 0.4-1.3 [facility], [address] [place] [address] Basophils (%) (Auto) November 23 0 8:21am 0.9 % 0.4-1.3 [facility], [address] [place] [address] 67451 Basophils (%) (Auto) November 20 0 2:36pm 1.0 % 0.4-1.3 [facility], [address] [place] [address] Basophils (%) (Auto) October 21 0 3:45pm 0.8 % 0.4-1.3 [facility], [address] [place] [address] 61661 Absolute Basophils (CBC) June 11:35am 0.1 # 0.0-0.2 [facility], [address] [place] [address] 42309 Absolute Basophils (CBC) May 11:50am 0.0 # 0.0-0.2 [facility], [address] [place] [address] Absolute Basophils (CBC) December 16 11:22am 0.1 # 0.0-0.2 [facility], [address] [place] [address] Absolute Basophils (CBC) November 24, 2019 8:21am 0.1 # 0.0-0.2 [facility], [address] [place] [address] 36259 Absolute Basophils (CBC) November 21, 2019 2:36pm 0.1 # 0.0-0.2 [facility], [address] [place] [address] 41908 Absolute Basophils (CBC) October 22, 2019 3:45pm 0.1 # 0.0-0.2 [facility], [address] [place] [address] 20235 Immature Granulocyte % (Auto) Novemb 2019 11:35am 0.1 % 0-2 [facility], [address] [place] [address] 74517 Immature Granulocyte % (Auto) Oct2019 11:50am 0.4 % 0-2 [facility], [address] [place] [address] 79236 Immature Granulocyte % (Auto) December 162019 11:22am 0.2 % 0-2 [facility], [address] [place] [address] 02676 Immature Granulocyte % (Auto) November 24, 2019 8:21am 0.2 % 0-2 [facility], [address] [place] [address] 89187 Immature Granulocyte % (Auto) November 21, 2019 2:36pm 0.1 % 0-2 [facility], [address] [place] [address] 46113 Immature Granulocyte % (Auto) October 22, 2019 3:45pm 0.3 % 0-2 [facility], [address] [place] [address] 36751 Absolute Immature Granulocyte (auto June 11, 2020 11:35am 0.0 # 0-0.1 [facility], [address] [place] [address] 85757 Absolute Immature Granulocyte (auto May 10, 2020 11:50am 0.1 # 0-0.1 [facility], [address] [place] [address] 61558 Absolute Immature Granulocyte (auto December 17, 2019 11:22am 0.0 # 0-0.1 [facility], [address] [place] [address] 56015 Absolute Immature Granulocyte (auto November 24, 2019 8:21am 0.0 # 0-0.1 [facility], [address] [place] [address] 51617 Absolute Immature Granulocyte (auto November 21, 2019 2:36pm 0.0 # 0-0.1 [facility], [address] [place] [address] 03049 Absolute Immature Granulocyte (auto October 22, 2019 3:45pm 0.0 # 0-0.1 [facility], [address] [place] [address] 27562 Add Manual Differential June 11:35am No [facility], [address] [place] [address] 00359 Add Manual Differential May 10, 2020 11:50am No [facility], [address] [place] [address] 45464 Add Manual Differential December 16 11:22am Manual diff added [facility], [address] [place] [address] 10238 Add Manual Differential November 24, 2019 8:21am No [facility], [address] [place] [address] 58970 Add Manual Differential November 21, 2019 2:36pm No [facility], [address] [place] [address] 94452 Add Manual Differential October 22, 2019 3:45pm No [facility], [address] [place] [address] 44354 Blood Smear Pathologist Review December 042019 11:22am Ssr [facility], [address] [place] [address] 12848 Differential Total Cells Counted December 17, 2019 11:22am 100 [facility], [address] [place] [address] 40922 Neutrophils (Manual) December 17, 2019 11:22a m 30 % 41-77 [facility], [address] [place] [address] 60524 Lymphocytes (Manual) December 17, 2019 11:22a m 55 % 14-46 [facility], [address] [place] [address] 57775 Monocytes (Manual) December 17, 2019 11:22am 11 % 4-12 [facility], [address] [place] [address] 14308 Eosinophils (Manual) December 17, 2019 11:22a m 4 % 0-7 [facility], [address] [place] [address] 61670 Platelet Estimate December 17, 2019 11:22am Appears normal NORMAL [facility], [address] [place] [address] 02751 RBC Morphology 2 December 17, 2019 11:22am Appears normal NORMAL [facility], [address] [place] [address] 63293 Sedimentation Rate, Janiergren November 21, 2019 2:36pm 20 mm/hr 0-30 [facility], [address] [place] [address] 15601 Prothrombin Time February 05, 2020 12:05pm 24.3 SECONDS 9.6-12.3 [facility], [address] [place] [address] Prothrombin Time December 22, 2019 1:15pm 26.4 SECONDS 9.6-12.3 [facility], [address] [place] [address] Prothrombin Time December 17, 2019 11:22am 18.6 SECONDS 9.6-12.3 [facility], [address] [place] [address] Prothrombin Time October 22, 2019 3:45pm 25.2 SECONDS 9.6-12.3 [facility], [address] [place] [address] INR International Normalized Ratio [facility] 2019 12:05pm 2.4 0.9-1.1 THE INR IS OPERATIONALLY DEFINED FOR ALEXIS PLASMA FROMPATIENTS STABILIZED ON ORAL ANTICOAGULANTS. ROUTINE ANTICOAGULANT THERAPY 2.0-3.0RECURRENT SYSTEMIC EMBOLISM/HEART VALVE REPLACEMENT 2.5-3.5 [facility], [address] [place] [address] INR International Normalized Ratio [facility] 2019 1:15pm 2.7 0.9-1.1 THE INR IS OPERATIONALLY DEFINED FOR FRESH PLASMA FROMPATIENTS STABILIZED ON ORAL ANTICOAGULANTS. ROUTINE ANTICOAGULANT THERAPY 2.0-3.0RECURRENT SYSTEMIC EMBOLISM/HEART VALVE REPLACEMENT 2.5-3.5 [facility], [address] [place] [address] 05352 INR International Normalized Ratio [facility] 2019 11:22am 1.9 0.9-1.1 THE INR IS OPERATIONALLY DEFINED FOR ALEXIS SH PLASMA FROMPATIENTS STABILIZED ON ORAL ANTICOAGULANTS. ROUTINE ANTICOAGULANT THERAPY 2.0-3.0RECURRENT SYSTEMIC EMBOLISM/HEART VALVE REPLACEMENT 2.5-3.5 [facility], [address] [place] [address] 19702 INR International Normalized Ratio [facility] 2019 3:45pm 2.6 0.9-1.1 THE INR IS OPERATIONALLY DEFINED FOR ALEXIS SH PLASMA FROMPATIENTS STABILIZED ON ORAL ANTICOAGULANTS. ROUTINE ANTICOAGULANT THERAPY 2.0-3.0RECURRENT SYSTEMIC EMBOLISM/HEART VALVE REPLACEMENT 2.5-3.5 [facility], [address] [place] [address] [id number] Partial Thromboplastin Time - [place] M 2019 3:45pm 35.7 SECONDS 22.7-31.6 [facility], [address] [place] [address] Blood Urea Nitrogen June 11 11:35am 9 mg/dL 04-28 [facility], [address] [place] [address] Blood Urea Nitrogen May 10 0 11:50am 15 mg/dL 04-28 [facility], [address] [place] [address] Blood Urea Nitrogen November 24, 2019 8:21a m 8 mg/dL 04-28 [facility], [address] [place] [address] Blood Urea Nitrogen November 21, 2019 2:36p m 10 mg/dL 04-28 [facility], [address] [place] [address] Blood Urea Nitrogen October 22, 2019 3:45p m 9 mg/dL 04-28 [facility], [address] [place] [address] [id number] Sodium Level June 11, 2020 11:35am 144 mmol/L 132-146 [facility], [address] [place] [address] [id number] Sodium Level May 10, 2020 11:50am 142 mmol/L 132-146 [facility], [address] [place] [address] [id number] Sodium Level November 24, 2019 8:21am 144 mmol/L 132-146 [facility], [address] [place] [address] Sodium Level November 21, 2019 2:36pm 144 mmol/L 132-146 [facility], [address] [place] [address] [id number] Sodium Level October 22, 2019 3:45pm 145 mmol/L 132-146 [facility], [address] [place] [address] [id number] Potassium Level June 11, 2020 11:35am 4.0 mmol/L 3.5-5.5 [facility], [address] [place] [address] [id number] Potassium Level May 10, 2020 11:50am 4.3 mmol/L 3.5-5.5 [facility], [address] [place] [address] Potassium Level November 24, 2019 8:21am 3.9 mmol/L 3.5-5.5 [facility], [address] [place] [address] [id number] Potassium Level November 21, 2019 2:36pm 4.6 mmol/L 3.5-5.5 [facility], [address] [place] [address] [id number] Potassium Level October 22, 2019 3:45pm 4.7 mmol/L 3.5-5.5 [facility], [address] [place] [address] [id number] Chloride Level June 11, 2020 11:35am 109 mmol/l 99-109 [facility], [address] [place] [address] [id number] Chloride Level May 10, 2020 11:50am 108 mmol/l 99-109 [facility], [address] [place] [address] [id number] Chloride Level November 24, 2019 8:21am 112 mmol/l 99-109 [facility], [address] [place] [address] [id number] Chloride Level November 21, 2019 2:36pm 109 mmol/l 99-109 [facility], [address] [place] [address] [id number] Chloride Level October 22, 2019 3:45pm 109 mmol/l 99-109 [facility] [facility] [address] [place] [address] 54257 Carbon Dioxide Level June 11 11:35am 32 mmol/l -31 [facility], [address] [place] [address] 58606 Carbon Dioxide Level May 10 20 11:50am 29 mmol/l 20-31 [facility], [address] [place] [address] 40576 Carbon Dioxide Level November 23 0 8:21am 27 mmol/l -31 [facility], [address] [place] [address] 39666 Carbon Dioxide Level November 20 0 2:36pm 31 mmol/l -31 [facility], [address] [place] [address] 30299 Carbon Dioxide Level October 21 0 3:45pm 30 mmol/l 20-31 [facility], [address] [place] [address] 10805 Anion Gap June 11, 2020 11:35am 7 mmol/l -16 [facility], [address] [place] [address] 84299 Anion Gap May 10, 2020 11:50am 9 mmol/l 8-16 [facility], [address] [place] [address] Anion Gap November 24, 2019 8:21am 9 mmol/l 03-21 [facility], [address] [place] [address] Anion Gap November 21, 2019 2:36pm 9 mmol/l 03-21 [facility], [address] [place] [address] Anion Gap October 22, 2019 3:45pm 11 mmol/l 03-21 [facility], [address] [place] [address] Glucose Level June 11, 2020 11:35am 79 mg/dL 74-106 [facility], [address] [place] [address] Glucose Level May 10, 2020 11:50am 137 mg/dL 74-106 [facility], [address] [place] [address] Glucose Level November 24, 2019 8:21am 111 mg/dL 74-106 [facility], [address] [place] [address] Glucose Level November 21, 2019 2:36pm 113 mg/dL 74-106 [facility], [address] [place] [address] Glucose Level October 22, 2019 3:45pm 98 mg/dL 74-106 [facility], [address] [place] [address] Creatinine June 11, 2020 11:35am 0.7 mg/dL 0.5-1.1 [facility], [address] [place] [address] Creatinine May 10, 2020 11:50am 0.7 mg/dL 0.5-1.1 [facility], [address] [place] [address] Creatinine November 24, 2019 8:21am 0.7 mg/dL 0.5-1.1 [facility], [address] [place] [address] Creatinine November 21, 2019 2:36pm 0.7 mg/dL 0.5-1.1 [facility], [address] [place] [address] Creatinine October 22, 2019 3:45pm 0.7 mg/dL 0.5-1.1 [facility], [address] [place] [address] Glomerular Filtration Rate Calc Nove mber 2019 11:35am Greater than 60 ml/min ABOVE 60 [facility], [address] [place] [address] Glomerular Filtration Rate Calc Octo lila 2019 11:50am Greater than 60 ml/min ABOVE 60 [facility], [address] [place] [address] 29317 Glomerular Filtration Rate Calc Apri l 2019 8:21am Greater than 60 ml/min ABOVE 60 [facility], [address] [place] [address] 92237 Glomerular Filtration Rate Calc Apri l 2019 2:36pm Greater than 60 ml/min ABOVE 60 [facility], [address] [place] [address] Glomerular Filtration Rate Calc Sergio h 2019 3:45pm Greater than 60 ml/min ABOVE 60 [facility], [address] [place] [address] 97976 Alanine Aminotransferase (ALT/SGPT) June 11, 2020 11:35am 39 U/L 10-49 [facility], [address] [place] [address] Alanine Aminotransferase (ALT/SGPT) May 10, 2020 11:50am 67 U/L 10-49 [facility], [address] [place] [address] 84623 Alanine Aminotransferase (ALT/SGPT) November 24, 2019 8:21am 48 U/L 10-49 [facility], [address] [place] [address] Alanine Aminotransferase (ALT/SGPT) November 21, 2019 2:36pm 48 U/L 10-49 [facility], [address] [place] [address] Alanine Aminotransferase (ALT/SGPT) October 22, 2019 3:45pm 54 U/L 10-49 [facility], [address] [place] [address] 04754 Aspartate Amino Transf (AST/SGOT) No vember 2019 11:35am 51 U/L 0-33 [facility], [address] [place] [address] 65955 Aspartate Amino Transf (AST/SGOT) Oc tober 2019 11:50am 64 U/L 0-33 [facility], [address] [place] [address] 85516 Aspartate Amino Transf (AST/SGOT) Ap ril 2019 8:21am 61 U/L 0-33 [facility], [address] [place] [address] Aspartate Amino Transf (AST/SGOT) Ap ril 2019 2:36pm 58 U/L 0-33 [facility], [address] [place] [address] 37626 Aspartate Amino Transf (AST/SGOT) Ma rch 2019 3:45pm 71 U/L 0-33 [facility], [address] [place] [address] Alkaline Phosphatase June 11 11:35am 124 U/L 45-129 [facility], [address] [place] [address] Alkaline Phosphatase May 10 11:50am 109 U/L 45-129 [facility], [address] [place] [address] Alkaline Phosphatase November 23 0 8:21am 113 U/L 45-129 [facility], [address] [place] [address] Alkaline Phosphatase November 20 0 2:36pm 123 U/L 45-129 [facility], [address] [place] [address] Alkaline Phosphatase October 21 0 3:45pm 143 U/L 45-129 [facility], [address] [place] [address] Calcium Level June 11, 2020 11:35am 9.3 mg/dL 8.5-10.1 [facility], [address] [place] [address] Calcium Level May 10, 2020 11:50am 9.0 mg/dL 8.5-10.1 [facility], [address] [place] [address] Calcium Level November 24, 2019 8:21am 8.7 mg/dL 8.5-10.1 [facility], [address] [place] [address] Calcium Level November 21, 2019 2:36pm 8.9 mg/dL 8.5-10.1 [facility], [address] [place] [address] Calcium Level October 22, 2019 3:45pm 9.5 mg/dL 8.5-10.1 [facility], [address] [place] [address] Total Bilirubin June 11, 2020 11:35am 0.6 mg/dL 0.3-1.2 [facility], [address] [place] [address] Total Bilirubin May 10, 2020 11:50am 0.8 mg/dL 0.3-1.2 [facility], [address] [place] [address] Total Bilirubin November 24, 2019 8:21am 0.5 mg/dL 0.3-1.2 [facility], [address] [place] [address] 95742 Total Bilirubin November 21, 2019 2:36pm 0.4 mg/dL 0.3-1.2 [facility], [address] [place] [address] Total Bilirubin October 22, 2019 3:45pm 0.5 mg/dL 0.3-1.2 [facility], [address] [place] [address] Albumin June 11, 2020 11:35am 3.5 g/dL 3.2-4.8 [facility], [address] [place] [address] Albumin May 10, 2020 11:50am 3.1 g/dL 3.2-4.8 [facility], [address] [place] [address] Albumin November 24, 2019 8:21am 3.4 g/dL 3.2-4.8 [facility], [address] [place] [address] Albumin November 21, 2019 2:36pm 3.4 g/dL 3.2-4.8 [facility], [address] [place] [address] Albumin October 22, 2019 3:45pm 3.6 g/dL 3.2-4.8 [facility], [address] [place] [address] 23637 Serum Total Protein June 11 11:35am 7.5 g/dL 5.7-8.2 [facility], [address] [place] [address] Serum Total Protein May 10 0 11:50am 7.6 g/dL 5.7-8.2 [facility], [address] [place] [address] Serum Total Protein November 24, 2019 8:21a m 7.3 g/dL 5.7-8.2 [facility], [address] [place] [address] Serum Total Protein November 21, 2019 2:36p m 7.5 g/dL 5.7-8.2 [facility], [address] [place] [address] Serum Total Protein October 22, 2019 3:45p m 8.2 g/dL 5.7-8.2 [facility], [address] [place] [address] 79395 Triglycerides Level June 11 11:35am 141 mg/dL 0-150 [facility], [address] [place] [address] 80244 Triglycerides Level November 24, 2019 8:21a m 187 mg/dL 0-150 [facility], [address] [place] [address] 19880 Cholesterol Level June 11, 2020 11:35am 202 mg/dL 120-200 [facility], [address] [place] [address] 16650 Cholesterol Level November 24, 2019 8:21am 203 mg/dL 120-200 [facility], [address] [place] [address] 81182 HDL Cholesterol June 11, 2020 11:35am 50 mg/dL HDL Less than 40 mg/dL: Major risk for CHDHDL Greater than 59 mg/dL: Low risk for CHD [facility], [address] [place] [address] 62130 HDL Cholesterol November 24, 2019 8:21am 52 mg/dL HDL Less than 40 mg/dL: Major risk for CHDHDL Greater than 59 mg/dL: Low risk for CHD [facility], [address] [place] [address] 22467 LDL Cholesterol, Calculated June 11, 2020 11:35am 124 mg/dL 0-100 [facility], [address] [place] [address] 55927 LDL Cholesterol, Calculated November 232019 8:21am 114 mg/dL 0-100 [facility], [address] [place] [address] 75645 C-Reactive Protein November 24, 2019 8:21am 9.1 mg/L 0.0-5.0 [facility], [address] [place] [address] 89892 Vitamin B12 Level November 21, 2019 2:36pm 467 pg/mL 211-911 [facility], [address] [place] [address] 83009 Folate November 21, 2019 2:36pm 14.5 ng/mL F OLATE INTERPRETATION NORMAL: GREATER THAN 5.38 INDETERMINATE: 3.38 - 5.38 DEFICIENT: LESS THAN 3.37 [facility], [address] [place] [address] 84789 Thyroid Stimulating Hormone (TSH) Ap ril 2019 8:21am 3.50 uIU/mL 0.35-5.50 [facility], [address] [place] [address] 37897 Thyroid Stimulating Hormone (TSH) Ap ril 2019 2:36pm 2.61 uIU/mL 0.35-5.50 [facility], [address] [place], [place] [address] Rheumatoid Factor November 21, 2019 2:36pm 96.0 IU/mL 0.0-14.0 [facility], [address] [place], [place] [id number] Treponema pallidum Antibody November 202019 2:36pm Non reactive Non React karthik Performed at: [facility] [address] [place], [place] [id number] Director: Audrey Neumann MD, Phone: [phone] at: [facility] [id number] Director: Renetta Aguilera MD, Phone: [phone] [facility] , [address] [facility] [address] c-ANCA November 21, 2019 2:36pm <1:20 titer Neg:<1:20 [facility] , [address] [facility] [address] p-ANCA November 21, 2019 2:36pm <1:20 titer Neg:<1:20 The presence of positive fluorescence exhibiting P-ANCA orC-ANCA patterns alone is not specific for the diagnosis ofWegener's Granulomatosis (WG) or microscopic polyangiitis.Decisions about treatment should not be based solely onANCA IFA results. The International ANCA Group Consensusrecommends follow up testing of positive sera with both UT-3 and MPO-ANCA enzyme immunoassays. As many as 5% serumsamples are positive only by EIA. Ref. AM J Clin Qlwugz6949;111:507-513. [facility] , [address] [facility] [address] Atypical p-ANCA November 21, 2019 2:36pm <1:20 titer Neg:<1:20 The atypical pANCA pattern has been observed in asignificant percentage of patients with ulcerative colitis,primary sclerosing cholangitis and autoimmune hepatitis.Performed at: [facility] [id number] Director: Renetta Aguilera MD, Phone: [phone] [facility] , [address] [facility] [address] Leukemia/Lymphoma Flow Cyto Results December 22, 2019 1:15pm Comment Lymphocytosis. No significant diagnostic immunophenotypic abnormalitydetected. (See comment.) [facility] , [address] [facility] [address] Leukemia/Lymphoma Flow Cyto Comment December 22, 2019 1:15pm Comment Lymphocytosis is due to increases in T suppressor cells and B cells.Increases in multiple lymphocyte subsets may suggest a reactive process.Clinical correlation is recommended. [facility] , [address] [facility] [address] Leukemia/Lymphoma Accession Number M ay 2019 1:15pm Not Reported [facility] , [address] [facility] [address] Leukemia/Lymphoma Specimen Type December 22, 2019 1:15pm Comment Peripheral blood [facility] , [address] [facility] [address] Leukemia/Lymph Leukocyte Assessment December 22, 2019 1:15pm [...] NK cells 3%. [facility] , [address] [facility] [address] Leukemia/Lymphoma Viability December 1:15pm Comment 96% [facility] , [address] [facility] [address] Leukemia/Lymphoma Phenotype December 1:15pm Not Reported [facility] , [address] [facility] [address] Leukemia/Lymphoma Gating Strategy Ma y 2019 1:15pm Comment 8 color analysis with CD45/SSC [facility] , [address] [facility] [address] Leukemia/Lymphoma Phenotype Chart Ma y 2019 1:15pm Comment CD2 Normal CD3 NormalCD4 Normal CD5 NormalCD7 Normal CD8 GtsyhoLP60 Normal CD11b RmgptsRA29 Normal CD14 AagcmaRZ72 Normal CD19 HnrrjmGI37 Normal CD23 See UhywHU21 Normal CD34 VnvosqMX82 Normal CD45 HlushoCU56 See Text CD57 DbrptpJL057 Normal HLA-DR NormalKAPPA Normal LAMBDA QvcqjwYP52 Normal [facility] , [address] [facility] [address] Pathology Message December 22, 2019 1:15pm Comment Jerod Del Rosario. [facility] , [address] [facility] [address] Cytology Clinician Provided ICD9 December 22, 2019 1:15pm Not Reported [facility] , [address] [facility] [address] Leukemia/Lymphoma Resulting ICD9 December 22, 2019 1:15pm Not Reported [facility] , [address] [facility] [address] Leukemia/Lymph Study Indications December 22, 2019 1:15pm Not Reported [facility] , [address] [facility] [address] Leukemia/Lymphoma Clinical Info December 22, 2019 1:15pm Comment LymphocytosisAccompanying CBC dated 12/17/19 shows:WBC count 10.9, Hgb 14.5, Garret 3.4, Lym 5.5, Lym% 50, Mon 1.3, Mon% 12, Eos0.6, Eos% 5, Bas 0.1, Plt 289K. [facility] , [address] [facility] [address] Leukemia/Lymphoma Comment December 22, 2019 1:15pm Comment Each antibody in this assay was utilized to assess forpotential abnormalities of studied cell populations or tocharacterize identified abnormalities.This test was developed and its performance characteristicsdetermined by [facility]. It has not been cleared or approvedby the U.S. Food and Drug Administration.The FDA has determined that such clearance or approval isnot necessary. This test is used for clinical purposes. Itshould not be regarded as investigational or for research.Performed at: -Y - [facility] [id number] [place], [place] [id number] Director: Alphonse Putnam MD, Phone: [phone] at: [facility] [id number] [place], [place] [id number] Director: Alphonse Putnam MD, Phone: [phone] [facility] , [address] [facility] [address] Whole Blood Vitamin B1 Level November 042019 2:36pm 175.2 nmol/L Performed at: [facility] [address] [id number] Director: Renetta Aguilera MD, Phone: [phone] [facility] , [address] [facility] [address] Vitamin B6 Level November 21, 2019 2:36pm 11.6 ug/L Performed at: [facility] [address] [id number] Director: Renetta Aguilera MD, Phone: [phone] [facility] , [address] [facility] [address] Vitamin E Level November 21, 2019 2:36pm 11.8 mg/L [facility] , [address] [facility] [address] Gamma-Tocopherol Level (Vitamin E) A pril 2019 2:36pm 3.3 mg/L Reference intervals for alpha and gamma- tocopheroldetermined from National Health and Nutrition ExaminationSurvey, 7747-8449. Individuals with alpha- tocopherol levelsless than 5.0 mg/L are considered vitamin E deficient.Performed at: [address] [id number] Director: Renetta Aguilera MD, Phone: [phone] [facility] , [address] [place] [address] Albumin (PEP) November 21, 2019 2:36pm 3.4 g/dL [facility] , [address] [place] [address] Xsnrf-8-Ukfhgulqc November 21, 2019 2:36pm 0.2 g/dL [facility] , [address] [facility] [address] Ncxcj-9-Kxobksdhw November 21, 2019 2:36pm 0.8 g/dL [facility] , [address] [facility] [address] Beta Globulins November 21, 2019 2:36pm 1.0 g/dL [facility] , [address] [facility] [address] M-Adam (RAEANN) November 21, 2019 2:36pm Not observed g/dL Not Observed [facility] , [address] [facility] [address] Gamma Globulins November 21, 2019 2:36pm 1.8 g/dL [facility] , [address] [place] [address] Globulin (PEP) November 21, 2019 2:36pm 3.8 g/dL [facility] , [address] [place] [address] Albumin/Globulin (PEP) November 20 020 2:36pm 0.9 [facility] , [address] [place] [address] Total Protein (PEP) November 21, 2019 2:36p m 7.2 g/dL [facility] , [address] [place] [address] Protein Electrophoresis Interpret Ap ril 2019 2:36pm Comment Protein electrophoresis scan will follow via computer,mail, or courtesy clerk delivery. [facility] , [address] [place] [address] Protein Electrophoresis Impression A pril 2019 2:36pm See scanned report [facility] , [address] [facility] [address] Anti-Double Strand DNA Antibody Apri l 2019 2:36pm <1 IU/mL Negative <5 Equivocal 5 - 9 Positive >9Performed at: RN - [facility] [address] [place], [place] [id number] Director: Audrey Neumann MD, Phone: [phone] [facility] , [address] [facility] [address] Anti-Nuclear Antibody Screen November 042019 2:36pm Positive Negative <1:80 Borderline 1:80 Positive >1:80 [facility] , [address] [place] [address] Anti-Nuclear Ab Centriole Pattern Ap ril 2019 2:36pm TNP No Reportable Result [facility] , [address] [place] [address] Anti-Nuclear Ab Nucleolar Pattern Ap ril 2019 2:36pm TNP No Reportable Result [facility] , [address] [place] [address] MAXIMUS Nuclear Membrane Pattern November 042019 2:36pm TNP No Reportable Result [facility] , [address] [place] [address] Anti-Nuclear Ab Speckled Pattern Apr il 2019 2:36pm 1:1280 [facility] , [address] [place] [address] Anti-Nuclear Ab Midbody Pattern Apri l 2019 2:36pm TNP No Reportable Result [facility] , [address] [place] [address] Anti-Nuclear Ab Centromere Pattern A pril 2019 2:36pm TNP No Reportable Result [facility] , [address] [place] [address] Anti-Nuclear Ab Nuclear Dot Pattern November 21, 2019 2:36pm TNP No Reportable Result [facility] , [address] [place] [address] Anti-Nuclear Ab PCNA Pattern November 042019 2:36pm TNP No Reportable Result [facility] , [address] [facility] [address] Anti-Nuclear Ab Homogeneous Pattern November 21, 2019 2:36pm TNP No Reportable Result [facility] , [address] [facility] [address] [facility] [address] MAXIMUS Spindle Apparatus Pattern November 21, 2019 2:36pm TNP No Reportable Result [facility] , [address] [facility] [address] Anti-Nuclear Antibody Comment November 21, 2019 2:36pm Comment A positive MAXIMUS result may occur in healthy individuals (lowtiter) or be associated with a variety of diseases. Seeinterpretation chart which is not all inclusive:Pattern Antigen Detected Suggested Disease Association Homogeneous DNA(ds,ss), SLE - High titers Nucleosomes, Histones Drug-induced SLE Speckled Sm, SALES AND RETAIL MANAGEMENT RECRUITER, SCL-70, SLE,MCTD,PSS (diffuse form), SS-A/SS-B Sjogrens Nucleolar SCL-70, PM-1/SCL High titers Scleroderma, PM/DM Centromere Centromere PSS (limited form) w/Crest syndrome variable Nuclear Dot Sp100,[id number] Primary Biliary Cirrhosis Nuclear GP210, Primary Biliary CirrhosisMembrane mata A,B,C Performed at: RN - [facility] [place] [id number] Director: Audrey Neumann MD, Phone: [phone] [facility] , [address] [facility] [address] SS-A Antibody November 21, 2019 2:36pm >8.0 [facility] , [address] [facility] [address] SS-B Antibody November 21, 2019 2:36pm <0.2 [facility] , [address] [facility] [address] Cancelled Test November 21, 2019 2:40pm A1c [facility], [address] [place] [address] 23578 Specimen Comment (Misc) November 21, 2019 2:40pm Did not pass with mcr check,abn signed Test(s) that were ordered on this requis iton were not collected. [facility], [address] [place] [address] 66820 Vitamin D 25-Hydroxy June 11 020 11:35am 25 ng/mL Vitamin D Status 25-OH Vitamin D:Deficiency: <20 ng/mLInsufficiency: 20 - 29 ng/mLOptimal: > or = 30 ng/mLFor 25-OH Vitamin D testing on patients onD2-supplementation and patients for whom quantitationof D2 and D3 fractions is required, the QuestAssureD(TM)25- OH VIT D, (D2,D3), LC/MS/MS is recommended: ordercode 90034 (patients >2yrs).See Note 1Note 1For additional information, please refer [email or web address]/[email or web address](This link is being provided for informational/educational purposes only.)THIS TEST WAS PERFORMED AT:[facility] [id number] PAREDES MD [facility] Urine Random Creatinine June 11:44am 27.0 mg/dL THERE IS NO ESTABLISHED RANGE FOR RANDOM URINE CREATININE [facility], [address] [place] [address] Urine Random Creatinine November 24, 2019 8:42am 110.0 mg/dL THERE IS NO ESTABLISHED RANGE FOR RANDOM URINE CREATININE [facility], [address] [place] [address] Urine Microalbumin June 11 0 11:44am Less than 5.0 mg/L 0.0 -29.9 [facility], [address] [place] [address] Urine Microalbumin November 24, 2019 8:42am 12.6 mg/L 0.0-29.9 [facility], [address] [place] [address] Urine Microalbumin/Creatinine Ratio June 11, 2020 11:44am Not Reported [facility], [address] [place] [address] Urine Microalbumin/Creatinine Ratio November 24, 2019 8:42am 11.4 ug/mg 0.0-30.0 [facility], [address] [place] [address] Hemoglobin A1c June 11, 2020 11:35am 6.6 [...] glucose control. * High risk of developing [place] [facility] complications such asretinopathy, nephropathy, neuropathy, cardiopathy, etc. Some danger of hypoglycemic reaction in Type I diabetics.Some glucose intolerant individuals and "Sub Clinical"diabetics may demonstrate HGBA1C levels in this area. [facility], [address] [place] [address] 98884 Hemoglobin A1c November 24, 2019 8:21am 6.4 [...] glucose control. * High risk of developing [place] complications such asretinopathy, nephropathy, neuropathy, cardiopathy, etc. Some danger of hypoglycemic reaction in Type I diabetics.Some glucose intolerant individuals and "Sub Clinical"diabetics may demonstrate HGBA1C levels in this area. [facility], [address] [place] [address]305 Estimated Average Glucose (eAG) [facility] 2019 11:35am 143 mg/dl An A1C of 7% - the goal of diabetic ther apy - is equivalentto an EAG of 154 mg/dl. [facility], [address] [place] [address] Estimated Average Glucose (eAG) [facility] 2019 8:21am 137 mg/dl An A1C of 7% - the goal of diabetic therapy - is equivalentto an EAG of 154 mg/dl. [facility], [address] [place] [address] Diagnostic Imaging Reports Report Dictated Date/Time Dictated By Status Radiology Report September 08, 2019 3:08pm Pasha Uribe MD completed [place] [id number] [place] [id number] [phone] NAME SEX PT STATUS ACCOUNT NUMBER [place] [facility] RE[facility] [id number] ORDERING PHYSICIAN LOCATION MEDICAL RECORD NO. CORY BAGLEY MD RAD [id number] ATTENDING PHYSICIAN DATE OF DATE OF EXAM/TIME [...] Trans Dt/Tm: Trans by: DT Prt Dt/Tm: [id number]: Total DLP = 0.00 mGy-cm Fluoroscopy Time (in secs): Radiology Report September 08, 2019 3:10pm Pasha Uribe MD completed [place] [id number] [phone] NAME SEX PT STATUS ACCOUNT NUMBER [place] [facility] [id number] ORDERING PHYSICIAN LOCATION MEDICAL RECORD NO. CORY BAGLEY MD RAD [id number] ATTENDING PHYSICIAN DATE OF DATE OF EXAM/TIME [...] seen. IMPRESSION: Moderate osteoarthritis. Reported By Pasha Uribe MD on 09/08/191509 Signed By Pasha Uribe MD on 09/08/191511 Date Time CC: Pasha Uribe MD; Jose R Church DO Techn: CARRC Trans Dt/Tm: Trans by: DT Prt Dt/Tm: : Total DLP = 0.00 mGy-cm Fluoroscopy Time (in secs): Radiology Report September 08, 2019 3:13pm Pasha Uribe MD completed [place] [address] [place] [address] [phone] NAME SEX PT STATUS ACCOUNT NUMBER [place] [facility] [id number] ORDERING PHYSICIAN LOCATION MEDICAL RECORD NO. CORY BAGLEY MD RAD [id number] ATTENDING PHYSICIAN DATE OF DATE OF EXAM/TIME [...] Trans Dt/Tm: Trans by: DT Prt Dt/Tm: [id number]: Total DLP = 0.00 mGy-cm Fluoroscopy Time (in secs): Radiology Report September 08, 2019 3:16pm Pasha Uribe MD completed [place] [address] [place] [address] [phone] NAME SEX PT STATUS ACCOUNT NUMBER [place] REF [id number] ORDERING PHYSICIAN LOCATION MEDICAL RECORD NO. CORY BAGLEY MD RAD [id number] ATTENDING PHYSICIAN DATE OF DATE OF EXAM/TIME [...] Trans Dt/Tm: Trans by: DT Prt Dt/Tm: [id number]: Total DLP = 0.00 mGy-cm Fluoroscopy Time (in secs): Radiology Report September 08, 2019 3:17pm Pasha Uribe MD completed [place] [address] [id number] [place] [address] [phone] NAME SEX PT STATUS ACCOUNT NUMBER [place] RE[place] [id number] ORDERING PHYSICIAN LOCATION MEDICAL RECORD NO. CORY BAGLEY MD RAD [id number] ATTENDING PHYSICIAN DATE OF DATE OF EXAM/TIME [...] Uribe MD; Jose R Church DO Techn: [id number] Trans Dt/Tm: Trans by: DT Prt Dt/Tm: 2653-1612: Total DLP = 0.00 mGy-cm Fluoroscopy Time (in secs): Radiology Report September 08, 2019 3:55pm Pasha Uribe MD completed [facility] [address] [place], [place] [id number] [phone] NAME SEX PT STATUS ACCOUNT NUMBER [place] RE[place] [id number] ORDERING PHYSICIAN LOCATION MEDICAL RECORD NO. CORY BAGLEY MD RAD [id number] ATTENDING PHYSICIAN DATE OF DATE OF EXAM/TIME [...] Trans Dt/Tm: Trans by: DT Prt Dt/Tm: [id number]: Total DLP = 0.00 mGy-cm Fluoroscopy Time (in secs): Radiology Report October 28, 2019 1:01pm Pasha Uribe MD completed [facility] [address] [place] [address] [phone] NAME SEX PT STATUS ACCOUNT NUMBER [place] RE[place] [id number] ORDERING PHYSICIAN LOCATION MEDICAL RECORD NO. Jose R Church DO CT [id number] ATTENDING PHYSICIAN DATE OF DATE OF EXAM/TIME [...] as adaptive dose shielding. Reported By Pasha Uirbe MD on 10/28/19 1301 Signed By Pasha Uribe MD on 10/28/19 1307 Date Time CC: Pasha Uribe MD; Jose R Church DO Techn: [email or web address] Trans Dt/Tm: Trans by: DT Prt Dt/Tm: : Total DLP = 623.00 mGy-cm : Total Radiation Dose = 1.9313 mSv Lifetime Dose: 1.9313 mSv Radiology Report October 28, 2019 1:08pm Pasha Uribe MD completed [facility] [address] [place] [address] [phone] NAME SEX PT STATUS ACCOUNT NUMBER [place] RE[place] [id number] ORDERING PHYSICIAN LOCATION MEDICAL RECORD NO. Jose R Church DO CT [id number] ATTENDING PHYSICIAN DATE OF DATE OF EXAM/TIME [...] [place] : 1950 AGE: 69 MR#: [id number] ADMITTING DATE: 11/11/[address]: DISCHARGE DATE: [...] November 11, 2019 3:36pm Roger Parr completed [facility] [address] [place] [id number] [phone] NAME SEX PT STATUS ACCOUNT NUMBER [place] REG REF [id number] ORDERING PHYSICIAN LOCATION MEDICAL RECORD NO. Ross Kaba M.D. EKG [id number] ATTENDING PHYSICIAN DATE OF DATE OF EXAM/TIME [...] 02, 2019 11:07am Pasha Uribe MD completed [facility] [address] [place] [id number] [phone] NAME SEX PT STATUS ACCOUNT NUMBER [place] Obed REG REF [id number] ORDERING PHYSICIAN LOCATION MEDICAL RECORD NO. Jose R Church DO RAD [id number] ATTENDING PHYSICIAN DATE OF DATE OF EXAM/TIME [...] Trans Dt/Tm: Trans by: DT Prt Dt/Tm: 3720-6657: Total DLP = 0.00 mGy-cm Fluoroscopy Time (in secs): Radiology Report January 02, 2020 10:31am Pasha Uribe MD completed [place] [id number] [place] [address] [phone] NAME SEX PT STATUS ACCOUNT NUMBER [place] REF [id number] ORDERING PHYSICIAN LOCATION MEDICAL RECORD NO. Yan Fermin DO MRI [id number] ATTENDING PHYSICIAN DATE OF DATE OF EXAM/TIME [...] foraminal stenosis. C3-C4: A moderate, broad-based disc Cornelia complex is seen. It is associated with [...] 30, 2020 3:09pm Pasha Uribe MD completed [facility] [address] [facility] [address] [place] [id number] [phone] NAME SEX PT STATUS ACCOUNT NUMBER [place] RE[place] [id number] ORDERING PHYSICIAN LOCATION MEDICAL RECORD NO. DO RYAN Oliver [id number] ATTENDING PHYSICIAN DATE OF DATE OF EXAM/TIME Jose R Church DO 1950 03/30/20 / 1508 TYPE / EXAM Xray Foot Complete RT REASON FOR EXAM Stub toe foot,bruise ,painful R/O fracture [place] [id number] 1950 ADDENDUM CRITICAL RESULT COMMUNICATED TO ARY [...] Trans Dt/Tm: Trans by: DT Prt Dt/Tm: 5230-6676: Total DLP = 0.00 mGy-cm Fluoroscopy Time (in secs): Radiology Report June 15, 2020 12:58pm Dao Hickman DO completed [place] [id number] [place] [address] [phone] NAME SEX PT STATUS ACCOUNT NUMBER [place] ER [id number] ORDERING PHYSICIAN LOCATION MEDICAL RECORD NO. Apollo Valente MD ER [id number] ATTENDING PHYSICIAN DATE OF DATE OF EXAM/TIME [...] Trans Dt/Tm: Trans by: DT Prt Dt/Tm: 5417-2627: Total DLP = 0.00 mGy-cm Fluoroscopy Time (in secs): Radiology Report June 15, 2020 1:01p ivet Hickman DO completed [facility] [address] [place] [address] [phone] NAME SEX PT STATUS ACCOUNT NUMBER [place] ER [id number] ORDERING PHYSICIAN LOCATION MEDICAL RECORD NO. Apollo Valente MD ER [id number] ATTENDING PHYSICIAN DATE OF DATE OF EXAM/TIME Jose R Church DO 1950 06/15/20 / 1239 TYPE / EXAM Xray Elbow AP/LAT LT [...] Signed By Dao Hickman DO on 06/15/20 1302 Date Time CC: Dao Hickman DO; Jose R Church DO Techn: [id number] Trans Dt/Tm: Trans by: DT Prt Dt/Tm: [id number]: Total DLP = 0.00 mGy-cm Fluoroscopy Time (in secs): Health Concerns Health Concerns may be documented in an alternate section. Advance Directives Advance Directive Response Recorded Date/Time Advanced Directive No No [email or web address] 5:41pm Does Patient have a DNR? No June 27, 2020 5:41pm Healthcare Proxy Yes Hong 2019 5:41pm Living Will Yes December 10:34am Chief Complaint and Reason for Visit Chief Complaint Anticoagulation HEARING EVAL (AID EVAL) Anticoagulation Anticoagulation PRIMARY OA INVOLVING MULTIPLE JOINTS [...] FALL stitch removal FALL ER Follow-up (Adult) Reason for Visit Essential (primary) hypertension GERD (gastroesophageal reflux disease) Essential (primary) hypertension Laceration Diabetes mellitus type 2 in obese History of cervical spinal arthrodesis Essential (primary) hypertension History of CVA (cerebrovascular accident) Abrasion Falls Encounters Encounter Location(s) Ar rival/Admit Date Discharge/Depart Date Provider(s) Registered Outpatient [facility] July 01, 2019 2:05pm Jose R Church DO Registered Outpatient [facility] July 04, 2019 9:36am Jose R Church DO Registered Outpatient [facility] July 10, 2019 8:20pm Jose R Church DO Registered Outpatient [facility] July 19, 2019 6:42pm Jose R Church DO Registered Outpatient [facility] July 26, 2019 10:01am Jose R Church DO Registered [facility]Aud[facility] July 29, 2019 10:08am Jose R Church DO Registered Outpatient [facility] August 01, 2019 9:25am Jose R Church DO Registered Outpatient [facility] August 01, 2019 1:53pm Jose R Church DO Registered Outpatient [facility] August 07, 2019 4:22pm Jose R Church DO Registered Outpatient [facility] August 15, 2019 4:08pm Jose R Church DO Registered Outpatient [facility] August 28, 2019 7:43am Jose R Church DO Registered Outpatient [facility] September 04, 2019 8:48am Jose R Church DO Registered Outpatient [facility] September 04, 2019 10:20am Jose R Church DO Registered [facility]Rad[facility] September 08, 2019 1:38pm CORY BAGLEY MD Registered Outpatient [facility] September 11, 2019 2:06pm Jose R Church DO Registered Outpatient [facility] September 18, 2019 3:58pm Jose R Church DO Registered Outpatient [facility] September 26, 2019 2:55pm Jose R Church DO Registered Outpatient [facility] October 02, 2019 11:52am Jose R Church DO Registered Outpatient [facility] October 02, 2019 4:24pm Jose R Church DO Registered Outpatient [facility] October 09, 2019 11:17am Jose R Church DO Registered Outpatient [facility] October 18, 2019 7:57am Jose R Church DO Departed Physician/Provider Office Visit [facility] October 21, 2019 12:32pm October 21, 2019 1:44pm Jose R Church DO Departed Emergency [facility] October 22, 2019 2:20pm October 22, 2019 5:56pm null Registered Outpatient [facility] October 23, 2019 7:47am Jose R Church DO Departed Physician/Provider Office Visit [facility] October 28, 2019 9:59am October 28, 2019 11:04am Jose R Church DO Registered [facility]Cat Scan October 28, 2019 11:28am Jose R Church DO Registered Outpatient [facility] October 31, 2019 8:34am Jose R Church DO Registered Outpatient [facility] October 31, 2019 2:15pm Jose R Church DO Registered Outpatient [facility] Internal Medicine November 04, 2019 11:51am Master Muñoz MD Registered Outpatient [facility] November 06, 2019 7:53am Jose R Church DO Registered [facility]EKG November 11, 2019 6:48am Ross Kaba Registered Outpatient [facility] November 21, 2019 9:47am Jose R Church DO Registered [facility]-Lab Drop Off November 21, 2019 1:54pm Denisse Best MD Registered [facility]Laboratory November 24, 2019 8:01am Jose R Church DO Departed Physician/Provider Office Visit [facility] November 25, 2019 8:36am November 25, 2019 10:01am Jose R Church DO Registered Outpatient [facility] November 27, 2019 7:20pm Jose R Church DO Registered [facility]Rad[facility] December 02, 2019 9:52am Jose R Church DO Registered Outpatient [facility] December 02, 2019 10:48am Jose R Church DO Registered Outpatient [facility] December 04, 2019 10:44am Jose R Church DO Registered Outpatient [facility] December 04, 2019 10:53am Jose R Church DO Registered Outpatient [facility] December 11, 2019 7:35pm Jose R Church DO Departed Physician/Provider Office Visit [facility] December 16, 2019 2:53pm December 16, 2019 4:56pm Jose R Church DO Registered [facility]Labor[facility] December 17, 2019 11:17am Jose R Church DO Registered [facility]Labor[facility] December 22, 2019 12:53pm Jose R Church DO Registered [facility]-MRI/MRA December 31, 2019 2:17pm Yan Fermin DO Registered Outpatient [facility] January 02, 2020 9:36am Jose R Church DO Registered Outpatient [facility] January 08, 2020 8:58am Jose R Church DO Registered Outpatient [facility] January 15, 2020 8:27am Jose R Church DO Registered Outpatient [facility] January 22, 2020 3:59pm Jose R Church DO Registered Outpatient [facility] January 26, 2020 8:53am Jose R Church DO Registered Outpatient [facility] January 29, 2020 7:53am Jose R Church , DO Registered Outpatient [facility] February 02, 2020 8:40am Jose R Church , Registered Outpatient [facility] February 02, 2020 10:32am Jose R Church DO Registered [facility] February 05, 2020 11:56am Jose R Church DO Registered Outpatient [facility] February 12, 2020 12:33pm Jose R Church DO Registered Outpatient [facility] February 19, 2020 7:37am Jose R Church DO Departed Physician/Provider Office Visit [facility] February 20, 2020 11:57am February 20, 2020 12:29pm Anum trevino Registered Outpatient [facility] February 26, 2020 5:20pm Jose R Church DO Registered Outpatient [facility] March 04, 2020 7:15am Jose R Church DO Registered Outpatient [facility] March 04, 2020 10:51am Jose R Church DO Departed Physician/Provider Office Visit [facility] March 08, 2020 9:12am March 08, 2020 10:34am Jose R Church DO Registered Outpatient [facility] March 11, 2020 7:22pm Jose R Church DO Registered Outpatient [facility] March 18, 2020 4:33pm Jose R Church DO Registered Outpatient [facility] March 25, 2020 1:21pm Jose R Church DO Registered [facility] March 30, 2020 1:57pm Jose R Church DO Departed Physician/Provider Office Visit [facility] March 30, 2020 2:15pm March 30, 2020 3:31pm Anum Erendira carbajal Registered Outpatient [facility] April 01, 2020 7:14am Jose R Church DO Registered Outpatient [facility] April 06, 2020 12:00pm Jose R Church DO Registered Outpatient [facility] April 15, 2020 9:22am Jose R Church DO Registered Outpatient [facility] April 23, 2020 8:57am Jose R Church DO Departed Emergency [facility] May 02, 2020 7:57am May 02, 2020 9:17am null Registered Outpatient [facility] May 04, 2020 7:17am Jose R Church DO Registered Outpatient [facility] May 04, 2020 2:13pm Jose R Church DO Registered Outpatient [facility] May 06, 2020 8:14am Jose R Church DO Registered [facility] May 10, 2020 11:39am DAGOBERTO PARR MD Registered Outpatient [facility] May 13, 2020 2:50pm Jose R Church DO Registered Outpatient [facility] May 20, 2020 7:45pm Jose R Church DO Registered Outpatient [facility] May 27, 2020 7:39am Jose R Church DO Registered Outpatient [facility] May 27, 2020 8:29am Jose R Church DO Registered Outpatient [facility] June 03, 2020 11:35am Jose R Church DO Registered Outpatient [facility] June 11, 2020 8:51am Jose R Church DO Registered [facility] June 11, 2020 11:26am Jose R Church DO Departed Physician/Provider Office Visit [facility] June 14, 2020 10:09am June 14, 2020 11:15am Jose R bethea DO Departed Emergency [facility] June 15, 2020 11:47am June 15, 2020 1:26pm null Registered Outpatient [facility] June 17, 2020 8:45pm Jose R Church DO Departed Physician/Provider Office Visit [facility] June 24, 2020 11:13am June 24, 2020 12:25pm Magy Howard NP Departed Emergency [facility] June 27, 2020 5:06pm June 27, 2020 9:00pm null Departed Physician/Provider Office Visit [facility] June 29, 2020 11:05am June 29, 2020 12:52pm Jose R Church DO Recent Diagnosis Onset Date Essential (primary) hypertension GERD (gastroesophageal reflux disease) Essential (primary) hypertension Laceration Diabetes mellitus type 2 in obese History of cervical spinal arthrodesis Essential (primary) hypertension History of CVA (cerebrovascular accident) Abrasion Falls Assessments Diagnosis Onset Date Res olution Status Essential (primary) hypertension chronic GERD (gastroesophageal reflux disease) chronic Essential (primary) hypertension chronic Laceration acute Diabetes mellitus type 2 in obese acute History of cervical spinal arthrodesis acute Essential (primary) hypertension chronic History of CVA (cerebrovascular accident) chronic Abrasion acute Falls acute Family History Relationship Condition A ge [...] Event Date Not Given Reason Dose Number New Car Make Ready Worker Lot Number Vaccine Information Statement (VIS) Deta il pneumococcal conjugate PCV 13 Decemb er 2013 zoster (shingles) vaccine, live, ok April 03, 2013 zoster (shingles) vaccine, live, ok December 11, 2017 influenza vaccine, inactivated Octob er 2018 [id number] influenza vaccine, inactivated Octob er 2011 influenza vaccine, inactivated Septe er 2012 influenza vaccine, inactivated Octob er 2013 influenza vaccine, inactivated December 082017 influenza vaccine, inactivated Novem lila 2015 influenza vaccine, inactivated Octob er 2014 influenza vaccine, inactivated mber 2015 influenza vaccine, inactivated Octob er 2016 influenza vaccine, inactivated lila 2019 [id number] tuberculin skin test August 25, 2015 pneumococcal polysaccharide PPV23 vaccine November 28, 2017 tetanus, diphtheria, acell pertussis 7yrs &up April 03, 2013 Mental Status Observation Response Hardy e Recorded Impairments Mental/Cognitive June 27, 2020 5:06pm Medical Equipment No Medical Equipment Information available Insurance Providers Guarantor [place] Address [address] [place] [address] Contact Info. Home Phone: Payer Policy Id Coverage Id Subscriber's Name Subscriber Id Effective Date Expiration Date MEDICARE [employer] [id number] [place] [id number] FOR LIFE [id number] [place] [id number] MEDICARE [id number] [place] [id number] Self Pay Self N/A [facility] [id number] [place] [id number] [facility] [id number] [place] [id number] Plan of Treatment F/u ER for L elbow contusion, wound, bleeding. 40 mins removing bandage as she is very high risk to re-bleed if any clot was broken. Washed wound with soap and water. Bacitracin ointment, Telfa, rap around gauze, then coban. F/u 2 days with LENS BLOCK GAUGER Anita for wound care and jace ck. Falls. Consult Physical Therapy. Use wheeled walker at home. Abnormal CT demonstrating some calcification of daniel. They do not want to see [place] [facility]/[place]. MRI done there I believe. Dr. Chappell/RAEANN [...] daughter Zuri Mcman[place] on [place] at [place] to get her meds at [facility] and for Margoth solis to be [...] 28, 2019 11:01am Respiratory rate 18 /min 12-October 28, 2019 11:01am Oxygen saturation by Pulse [...] 25, 2019 9:40am Respiratory rate 158 /min 07-29November 25, 2019 9:40am Oxygen saturation by Pulse [...] 2020 10:22am Heart Rate 100 /min 60-1 March 08, 2020 10:22am Respiratory rate 18 [...] 15, 2020 11:48am Respiratory rate 16 /min 12-June 15, 2020 11:48am Oxygen saturation by Pulse [...] 24, 2020 11:43am Respiratory rate 18 /min 12-June 24, 2020 11:43am Oxygen saturation by Pulse [...]
--- OUTSIDE RECORDS SUMMARY | 2020-09-16 10:27 | CCD | Continuity of Care Document ---
Author Author [facility] Address [address] [place] [address] Phone Support Name Relationship Address [place] [address] [place] [address] CORY BAGLEY PRS [address] [address] Apollo Valente PRS [address] [place] [address] Master Muñoz PRS [address] [place] [address] Love, Ross PRS [facility] [place] [address] EstephaniaDenisse kilpatrick PRS [address] [place] [address] YAN FERMIN PRS [facility] [place] [address] Anum Bender PRS [address] [place] [address] DAGOBERTO PARR PRS [address] [place] [address] [place] [address] Apollo Varela PRS [address] [place] [address] Allergies, Adverse Reactions, Alerts Allergen Type Severity [...] 11:30am Afluria Qd (3yr up)(PF) (flu vac [id number] 36mos up(PF)) Discontinued 0.5 ML IM 1 [...] 28, 2019 1:46pm November 25, 2019 9:01am Ruadqkazee-Oeyonyzvdjzcr-Druc Discontinued 1 CAP PO Q12H November 25, 2019 9: 00am February 20, 2020 12:04pm Afluria Qd (3yr up)(PF) (flu vac [id number] 36mos up(PF)) Discontinued 0.5 ML IM 1 [...] (primary) hypertension Active Osteoporosis Active [place] [facility] current use of anticoagulant Active Fibromyalgia Active Unspecified cirrhosis of liver Active Lymphocytosis Active Abnormal glucose Activ e Mild intermittent asthma Active Recurrent sinusitis Ac tive Active Acquired absence of spleen Active Abrasion Active GERD (gastroesophageal reflux disease) Active History of CVA (cerebrovascular accident) Active Inactive/Resolved Problems Medical Problem Onset Date [...] June 11, 2020 11:35am 9.2 10e3/uL 4.45-10.71 [facility], [address] [place] [address] White Blood Count May 10, 2020 11:50a m 14.1 10e3/uL 4.45-10.71 [facility], [address] [place] [address] White Blood Count December 17, 2019 11:22am 10.9 10e3/uL 4.45-10.71 [facility], [address] [place] [address] White Blood Count November 24, 2019 8:21am 8.8 10e3/uL 4.45-10.71 [facility], [address] [place] [address] White Blood Count November 21, 2019 2:36pm 10.1 10e3/uL 4.45-10.71 [facility], [address] [place] [address] White Blood Count October 22, 2019 3:45pm 14.4 10e3/uL 4.45-10.71 [facility], [address] [place] [address] Red Blood Count June 11, 2020 11:35am 4.74 10e6/uL 4.20-5.40 [facility], [address] [place] [address] Red Blood Count May 10, 2020 11:50am 4.64 10e6/uL 4.20-5.40 [facility], [address] [place] [address] Red Blood Count December 17, 2019 11:22am 4.56 10e6/uL 4.20-5.40 [facility], [address] [place] [address] Red Blood Count November 24, 2019 8:21am 4.39 10e6/uL 4.20-5.40 [facility], [address] [place] [address] Red Blood Count November 21, 2019 2:36pm 4.50 10e6/uL 4.20-5.40 [facility], [address] [place] [address] Red Blood Count October 22, 2019 3:45pm 5.04 10e6/uL 4.20-5.40 [facility], [address] [place] [address] Hemoglobin June 11, 2020 11:35am 14.6 g/dL 10.7-15.4 [facility], [address] [place] [address] Hemoglobin May 10, 2020 11:50am 14.2 g/dL 10.7-15.4 [facility], [address] [place] [address] Hemoglobin December 17, 2019 11:22am 14.5 g/dL 10.7-15.4 [facility], [address] [place] [address] Hemoglobin November 24, 2019 8:21am 14.0 g/dL 10.7-15.4 [facility], [address] [place] [address] Hemoglobin November 21, 2019 2:36pm 14.2 g/dL 10.7-15.4 [facility], [address] [place] [address] Hemoglobin October 22, 2019 3:45pm 15.9 g/dL 10.7-15.4 [facility], [address] [place] [address] 05582 Hematocrit June 11, 2020 11:35am 44.6 % 37-47 [facility], [address] [place] [address] Hematocrit May 10, 2020 11:50am 42.5 % 37-47 [facility], [address] [place] [address] Hematocrit December 17, 2019 11:22am 43.5 % 37-47 [facility], [address] [place] [address] Hematocrit November 24, 2019 8:21am 41.1 % 37-47 [facility], [address] [place] [address] Hematocrit November 21, 2019 2:36pm 42.1 % 37-47 [facility], [address] [place] [address] Hematocrit October 22, 2019 3:45pm 47.4 % 37-47 [facility], [address] [place] [address] 87174 Mean Corpuscular Volume June 11:35am 94.1 fl 80[facility], [address] [place] [address] 84286 Mean Corpuscular Volume May 10, 2020 11:50am 91.6 fl 80[facility], [address] [place] [address] 62799 Mean Corpuscular Volume December 16 11:22am 95.4 fl 80[facility], [address] [place] [address] 04289 Mean Corpuscular Volume November 24, 2019 8:21am 93.6 fl 80[facility], [address] [place] [address] 64816 Mean Corpuscular Volume November 21, 2019 2:36pm 93.6 fl 8096 [facility], [address] [place] [address] 93108 Mean Corpuscular Volume October 22, 2019 3:45pm 94.0 fl [facility], [address] [place] [address] 66857 Mean Corpuscular Hemoglobin June 11, 2020 11:35am 30.8 pg 27-31 [facility], [address] [place] [address] 14174 Mean Corpuscular Hemoglobin May 10, 2020 11:50am 30.6 pg 27-31 [facility], [address] [place] [address] 37319 Mean Corpuscular Hemoglobin December 11:22am 31.8 pg 27-31 [facility], [address] [place] [address] 11723 Mean Corpuscular Hemoglobin November 232019 8:21am 31.9 pg 27-31 [facility], [address] [place] [address] 23340 Mean Corpuscular Hemoglobin November 202019 2:36pm 31.6 pg 27-31 [facility], [address] [place] [address] 54635 Mean Corpuscular Hemoglobin October 212019 3:45pm 31.5 pg 27-31 [facility], [address] [place] [address] 48075 Mean Corpuscular Hemoglobin Concent June 11, 2020 11:35am 32.7 g/dl 33-37 [facility], [address] [place] [address] 38673 Mean Corpuscular Hemoglobin Concent May 10, 2020 11:50am 33.4 g/dl 33-37 [facility], [address] [place] [address] Mean Corpuscular Hemoglobin Concent December 17, 2019 11:22am 33.3 g/dl [facility], [address] [place] [address] Mean Corpuscular Hemoglobin Concent November 24, 2019 8:21am 34.1 g/dl [address] [place] [address] LABORATORY, [address] [place] [address] 03391 Mean Corpuscular Hemoglobin Concent November 21, 2019 2:36pm 33.7 g/dl [address] [place], [place] [address], [address] [place] [address] 98909 Mean Corpuscular Hemoglobin Concent October 22, 2019 3:45pm 33.5 g/dl [facility], [address] [place] [address] Red Cell Distribution Width June 11, 2020 11:35am 16 % 11-15 [facility], [address] [place] [address] Red Cell Distribution Width May 10, 2020 11:50am 16 % 11-15 [facility], [address] [place] [address] Red Cell Distribution Width December 11:22am 16 % 11-15 [facility], [address] [place] [address] Red Cell Distribution Width November 232019 8:21am 16 % 11-15 [facility], [address] [place] [address] Red Cell Distribution Width November 202019 2:36pm 16 % 11-15 [facility], [address] [place] [address] Red Cell Distribution Width October 212019 3:45pm 16 % 11-15 [facility], [address] [place] [address] Platelet Count June 11, 2020 11:35am 329 10e3/ul 130-472 [facility], [address] [place] [address] Platelet Count May 10, 2020 11:50am 363 10e3/ul 130-472 [facility], [address] [place] [address] Platelet Count December 17, 2019 11:22am 289 10e3/ul 130-472 [facility], [address] [place] [address] Platelet Count November 24, 2019 8:21am 304 10e3/ul 130-472 [facility], [address] [place] [address] 33885 Platelet Count November 21, 2019 2:36pm 303 10e3/ul 130-472 [facility], [address] [place] [address] Platelet Count October 22, 2019 3:45pm 280 10e3/ul 130-472 [facility], [address] [place] [address] 06644 Mean Platelet Volume June 11 020 11:35am 10.3 fl 9.1-13.1 [facility], [address] [place] [address] 42753 Mean Platelet Volume May 10 11:50am 10.4 fl 9.1-13.1 [facility], [address] [place] [address] 34184 Mean Platelet Volume December 17, 2019 11:22a m 10.9 fl 9.1-13.1 [facility], [address] [place] [address] Mean Platelet Volume November 23 0 8:21am 11.1 fl 9.1-13.1 [facility], [address] [place] [address] 11478 Mean Platelet Volume November 20 0 2:36pm 10.5 fl 9.1-13.1 [facility], [address] [place] [address] Mean Platelet Volume October 21 0 3:45pm 10.7 fl 9.1-13.1 [facility], [address] [place] [address] 91034 Neutrophils (%) (Auto) June 11, 2020 11:35am 31.9 % [address] [place] [address] [facility]ORATORY, [address] [place] [address] 49567 Neutrophils (%) (Auto) May 10, 2020 11:50am 51.9 % [address] [facility], [address] [place] [address] 56212 Neutrophils (%) (Auto) December 16 0 11:22am 31.6 % [address] [facility], [address] [place] [address] 86398 Neutrophils (%) (Auto) November 23, 020 8:21am 36.7 % [address] [place] [address] LABORATORY, [address] [place] [address] 12033 Neutrophils (%) (Auto) November 20, 020 2:36pm 31.8 % [address] [place] [address] LABORATORY, [address] [place] [address] 23201 Neutrophils (%) (Auto) October 21 3:45pm 57.6 % 41-77 [facility], [address] [place] [address] 55686 Absolute Neutrophil June 11 11:35am 2.9 # 1.7-7.6 [facility], [address] [place] [address] 30974 Absolute Neutrophil May 10 0 11:50am 7.3 # 1.7-7.6 [facility], [address] [place] [address] Absolute Neutrophil December 17, 2019 11:22am 3.4 # 1.7-7.6 [facility], [address] [place] [address] 36433 Absolute Neutrophil November 24, 2019 8:21a m 3.2 # 1.7-7.6 [facility], [address] [place] [address] 07850 Absolute Neutrophil November 21, 2019 2:36p m 3.2 # 1.7-7.6 [facility], [address] [place] [address] 57436 Absolute Neutrophil October 22, 2019 3:45p m 8.3 # 1.7-7.6 [facility], [address] [place] [address] 33074 Lymphocytes (%) (Auto) June 11, 2020 11:35am 50.4 % 14-46 [facility], [address] [place] [address] 10375 Lymphocytes (%) (Auto) May 10, 2020 11:50am 33.3 % 14-46 [facility], [address] [place] [address] 12335 Lymphocytes (%) (Auto) December 16 0 11:22am 50.2 % 14-46 [facility], [address] [place] [address] 80574 Lymphocytes (%) (Auto) November 23 8:21am 41.0 % 14-46 [facility], [address] [place] [address] 42711 Lymphocytes (%) (Auto) November 20 2:36pm 47.7 % 14-46 [facility], [address] [place] [address] 41386 Lymphocytes (%) (Auto) October 21 3:45pm 27.0 % 14-46 [facility], [address] [place] [address] 38390 Lymphocytes # (Auto) June 11, 020 11:35am 4.6 # 0.6-4.6 [facility], [address] [place] [address] 28355 Lymphocytes # (Auto) May 10 11:50am 4.7 # 0.6-4.6 [facility], [address] [place] [address] 98737 Lymphocytes # (Auto) December 17, 2019 11:22a m 5.5 # 0.6-4.6 [facility], [address] [place] [address] 96792 Lymphocytes # (Auto) November 23 0 8:21am 3.6 # 0.6-4.6 [facility], [address] [place] [address] 71000 Lymphocytes # (Auto) November 20 0 2:36pm 4.8 # 0.6-4.6 [facility], [address] [place] [address] 14659 Lymphocytes # (Auto) October 21 0 3:45pm 3.9 # 0.6-4.6 [facility], [address] [place] [address] 73689 Monocytes (%) (Auto) June 11, 020 11:35am 11.9 % 4-12 [facility], [address] [place] [address] 29711 Monocytes (%) (Auto) May 10 11:50am 13.1 % 4-12 [facility], [address] [place] [address] 33507 Monocytes (%) (Auto) December 17, 2019 11:22a m 12.0 % 4-12 [facility], [address] [place] [address] 33978 Monocytes (%) (Auto) November 23 0 8:21am 11.4 % 4-12 [facility], [address] [place] [address] 00883 Monocytes (%) (Auto) November 20 0 2:36pm 10.8 % 4-12 [facility], [address] [place] [address] 16156 Monocytes (%) (Auto) October 21 0 3:45pm 8.4 % 4-12 [facility], [address] [place] [address] 63551 Monocytes # June 11, 2020 11:35am 1.1 # 0.2-1.2 [facility], [address] [place] [address] 92777 Monocytes # May 10, 2020 11:50am 1.9 # 0.2-1.2 [facility], [address] [place] [address] 42052 Monocytes # December 17, 2019 11:22am 1.3 # 0.2-1.2 [facility], [address] [place] [address] 07461 Monocytes # November 24, 2019 8:21am 1.0 # 0.2-1.2 [facility], [address] [place] [address] 15200 Monocytes # November 21, 2019 2:36pm 1.1 # 0.2-1.2 [facility], [address] [place] [address] 00842 Monocytes # October 22, 2019 3:45pm 1.2 # 0.2-1.2 [facility], [address] [place] [address] 63371 Eosinophils (%) (Auto) June 11, 2020 11:35am 4.9 % 0-7 [facility], [address] [place] [address] 26092 Eosinophils (%) (Auto) May 10, 2020 11:50am 1.0 % 0-7 [facility], [address] [place] [address] 31597 Eosinophils (%) (Auto) December 16 0 11:22am 5.1 % 0-7 [facility], [address] [place] [address] 31761 Eosinophils (%) (Auto) November 23, 020 8:21am 9.8 % 0-7 [facility], [address] [place] [address] 91425 Eosinophils (%) (Auto) November 20, 020 2:36pm 8.6 % 0-7 [facility], [address] [place] [address] 32195 Eosinophils (%) (Auto) October 21, 020 3:45pm 5.9 % 0-7 [facility], [address] [place] [address] 14018 Absolute Eosinophils (CBC) June 11, 2020 11:35am 0.5 # 0.0-0.5 [facility], [address] [place] [address] 45437 Absolute Eosinophils (CBC) May 102019 11:50am 0.1 # 0.0-0.5 [facility], [address] [place] [address] 36430 Absolute Eosinophils (CBC) December 17, 2019 11:22am 0.6 # 0.0-0.5 [facility], [address] [place] [address] Absolute Eosinophils (CBC) November 8:21am 0.9 # 0.0-0.5 [facility], [address] [place] [address] Absolute Eosinophils (CBC) November 2:36pm 0.9 # 0.0-0.5 [facility], [address] [place] [address] Absolute Eosinophils (CBC) October 3:45pm 0.8 # 0.0-0.5 [facility], [address] [place] [address] Basophils (%) (Auto) June 11 020 11:35am 0.8 % 0.4-1.3 [facility], [address] [place] [address] Basophils (%) (Auto) May 10 11:50am 0.3 % 0.4-1.3 [facility], [address] [place] [address] Basophils (%) (Auto) December 17, 2019 11:22a m 0.9 % 0.4-1.3 [facility], [address] [place] [address] Basophils (%) (Auto) November 23 0 8:21am 0.9 % 0.4-1.3 [facility], [address] [place] [address] Basophils (%) (Auto) November 20 0 2:36pm 1.0 % 0.4-1.3 [facility], [address] [place] [address] Basophils (%) (Auto) October 21 0 3:45pm 0.8 % 0.4-1.3 [facility], [address] [place] [address] Absolute Basophils (CBC) June 11:35am 0.1 # 0.0-0.2 [facility], [address] [place] [address] Absolute Basophils (CBC) May 11:50am 0.0 # 0.0-0.2 [facility], [address] [place] [address] Absolute Basophils (CBC) December 16 11:22am 0.1 # 0.0-0.2 [facility], [address] [place] [address] 17931 Absolute Basophils (CBC) November 24, 2019 8:21am 0.1 # 0.0-0.2 [facility], [address] [place] [address] 74535 Absolute Basophils (CBC) November 21, 2019 2:36pm 0.1 # 0.0-0.2 [facility], [address] [place] [address] 17151 Absolute Basophils (CBC) October 22, 2019 3:45pm 0.1 # 0.0-0.2 [facility], [address] [place] [address] 19153 Immature Granulocyte % (Auto) Novemb 2019 11:35am 0.1 % 0-2 [facility], [address] [place] [address] 23532 Immature Granulocyte % (Auto) 2019 11:50am 0.4 % 0-2 [facility], [address] [place] [address] 42308 Immature Granulocyte % (Auto) December 162019 11:22am 0.2 % 0-2 [facility], [address] [place] [address] 39743 Immature Granulocyte % (Auto) November 24, 2019 8:21am 0.2 % 0-2 [facility], [address] [place] [address] 01233 Immature Granulocyte % (Auto) November 21, 2019 2:36pm 0.1 % 0-2 [facility], [address] [place] [address] 85137 Immature Granulocyte % (Auto) October 22, 2019 3:45pm 0.3 % 0-2 [facility], [address] [place] [address] 14592 Absolute Immature Granulocyte (auto June 11, 2020 11:35am 0.0 # 0-0.1 [facility], [address] [place] [address] 55996 Absolute Immature Granulocyte (auto May 10, 2020 11:50am 0.1 # 0-0.1 [facility], [address] [place] [address] 70516 Absolute Immature Granulocyte (auto December 17, 2019 11:22am 0.0 # 0-0.1 [facility], [address] [place] [address] 83665 Absolute Immature Granulocyte (auto November 24, 2019 8:21am 0.0 # 0-0.1 [facility], [address] [place] [address] 88430 Absolute Immature Granulocyte (auto November 21, 2019 2:36pm 0.0 # 0-0.1 [facility], [address] [place] [address] 60638 Absolute Immature Granulocyte (auto October 22, 2019 3:45pm 0.0 # 0-0.[address] [facility], [address] [place] [address] 78724 Add Manual Differential June 11:35am No [facility], [address] [place] [address] 83515 Add Manual Differential May 10, 2020 11:50am No [facility], [address] [place] [address] 90681 Add Manual Differential December 16 11:22am Manual diff added [facility], [address] [place] [address] 29926 Add Manual Differential November 24, 2019 8:21am No [facility], [address] [place] [address] 65712 Add Manual Differential November 21, 2019 2:36pm No [facility], [address] [place] [address] 81403 Add Manual Differential October 22, 2019 3:45pm No [facility], [address] [place] [address] 82274 Blood Smear Pathologist Review December 042019 11:22am Ssr [facility], [address] [place] [address] 51853 Differential Total Cells Counted December 17, 2019 11:22am [address] [facility], [address] [place] [address] 28285 Neutrophils (Manual) December 17, 2019 11:22a m 30 % 41-77 [facility], [address] [place] [address] 62289 Lymphocytes (Manual) December 17, 2019 11:22a m 55 % 14-[address] [facility], [address] [place] [address] 46102 Monocytes (Manual) December 17, 2019 11:22am 11 % 4-[address] [facility], [address] [place] [address] 45561 Eosinophils (Manual) December 17, 2019 11:22a m 4 % 0-[address] [facility], [address] [place] [address] 72638 Platelet Estimate December 17, 2019 11:22am Appears normal NORMAL [facility], [address] [place] [address] [id number] RBC Morphology 2 December 17, 2019 11:22am Appears normal NORMAL [facility], [address] [place] [address] [id number] Sedimentation Rate, Analyren November 21, 2019 2:36pm 20 mm/hr 0-30 [facility], [address] [place] [id number] Prothrombin Time February 05, 2020 12:05pm 24.3 SECONDS 9.6-12.3 [facility], [address] [place] [address] Prothrombin Time December 22, 2019 1:15pm 26.4 SECONDS 9.6-12.3 [facility], [address] [place] [address] Prothrombin Time December 17, 2019 11:22am 18.6 SECONDS 9.6-12.3 [facility], [address] [place] [address] Prothrombin Time October 22, 2019 3:45pm 25.2 SECONDS 9.6-12.3 [facility], [address] [place] [address] INR International Normalized Ratio [facility] 12:05pm 2.4 0.9-1.1 THE INR IS OPERATIONALLY DEFINED FOR ALEXIS SH PLASMA FROMPATIENTS STABILIZED ON ORAL ANTICOAGULANTS. ROUTINE ANTICOAGULANT THERAPY 2.0-3.0RECURRENT SYSTEMIC EMBOLISM/HEART VALVE REPLACEMENT 2.5-3.5 [facility], [address] [place] [address] INR International Normalized Ratio [facility] 2019 1:15pm 2.7 0.9-1.1 THE INR IS OPERATIONALLY DEFINED FOR FRESH PLASMA FROMPATIENTS STABILIZED ON ORAL ANTICOAGULANTS. ROUTINE ANTICOAGULANT THERAPY 2.0-3.0RECURRENT SYSTEMIC EMBOLISM/HEART VALVE REPLACEMENT 2.5-3.5 [facility], [address] [place] [address] 19741 INR International Normalized Ratio [facility] 2019 11:22am 1.9 0.9-1.1 THE INR IS OPERATIONALLY DEFINED FOR ALEXIS SH PLASMA FROMPATIENTS STABILIZED ON ORAL ANTICOAGULANTS. ROUTINE ANTICOAGULANT THERAPY 2.0-3.0RECURRENT SYSTEMIC EMBOLISM/HEART VALVE REPLACEMENT 2.5-3.5 [facility], [address] [place] [address] 78882 INR International Normalized Ratio [facility] 2019 3:45pm 2.6 0.9-1.1 THE INR IS OPERATIONALLY DEFINED FOR ALEXIS SH PLASMA FROMPATIENTS STABILIZED ON ORAL ANTICOAGULANTS. ROUTINE ANTICOAGULANT THERAPY 2.0-3.0RECURRENT SYSTEMIC EMBOLISM/HEART VALVE REPLACEMENT 2.5-3.5 [facility], [address] [place] [address] 11818 Partial Thromboplastin Time - Vicky Mane 2019 3:45pm 35.7 SECONDS 22.7-31.6 [facility], [address] [place] [address] Blood Urea Nitrogen June 11 11:35am 9 mg/dL 04-28 [facility], [address] [place] [address] Blood Urea Nitrogen May 10 0 11:50am 15 mg/dL 04-28 [facility], [address] [place] [address] Blood Urea Nitrogen November 24, 2019 8:21a m 8 mg/dL 04-28 [facility], [address] [place] [address] Blood Urea Nitrogen November 21, 2019 2:36p m 10 mg/dL 04-28 [facility], [address] [place] [address] Blood Urea Nitrogen October 22, 2019 3:45p m 9 mg/dL 04-28 [facility], [address] [place] [address] 56922 Sodium Level June 11, 2020 11:35am 144 mmol/L 132-146 [facility], [address] [place] [address] Sodium Level May 10, 2020 11:50am 142 mmol/L 132-146 [facility], [address] [place] [address] 15900 Sodium Level November 24, 2019 8:21am 144 mmol/L 132-146 [facility], [address] [place] [address] Sodium Level November 21, 2019 2:36pm 144 mmol/L 132-146 [facility], [address] [place] [address] 52137 Sodium Level October 22, 2019 3:45pm 145 mmol/L 132-146 [facility], [address] [place] [address] 57548 Potassium Level June 11, 2020 11:35am 4.0 mmol/L 3.5-5.5 [facility], [address] [place] [address] Potassium Level May 10, 2020 11:50am 4.3 mmol/L 3.5-5.5 [facility], [address] [place] [address] Potassium Level November 24, 2019 8:21am 3.9 mmol/L 3.5-5.5 [facility], [address] [place] [address] 13834 Potassium Level November 21, 2019 2:36pm 4.6 mmol/L 3.5-5.5 [facility], [address] [place] [address] 39812 Potassium Level October 22, 2019 3:45pm 4.7 mmol/L 3.5-5.5 [facility], [address] [place] [address] 39959 Chloride Level June 11, 2020 11:35am 109 mmol/l 99-109 [facility], [address] [place] [address] 97897 Chloride Level May 10, 2020 11:50am 108 mmol/l 99-109 [facility], [address] [place] [address] 28393 Chloride Level November 24, 2019 8:21am 112 mmol/l 99-109 [facility], [address] [place] [address] 01288 Chloride Level November 21, 2019 2:36pm 109 mmol/l 99-109 [facility], [address] [place] [address] 18060 Chloride Level October 22, 2019 3:45pm 109 mmol/l 99-109 [facility], [address] [place] [address] 71924 Carbon Dioxide Level June 11 11:35am 32 mmol/l -31 [facility], [address] [place] [address] 49176 Carbon Dioxide Level May 10 20 11:50am 29 mmol/l 20-31 [facility], [address] [place] [address] 46684 Carbon Dioxide Level November 23 0 8:21am 27 mmol/l -31 [facility], [address] [place] [address] 93263 Carbon Dioxide Level November 20 0 2:36pm 31 mmol/l -31 [facility], [address] [place] [address] 69613 Carbon Dioxide Level October 21 0 3:45pm 30 mmol/l 20-31 [facility], [address] [place] [address] 46587 Anion Gap June 11, 2020 11:35am 7 mmol/l 03-21 [facility], [address] [place] [address] 38043 Anion Gap May 10, 2020 11:50am 9 mmol/l - [facility], [address] [place] [address] Anion Gap November 24, 2019 8:21am 9 mmol/l 03-21 [facility], [address] [place] [address] Anion Gap November 21, 2019 2:36pm 9 mmol/l 03-21 [facility], [address] [place] [address] Anion Gap October 22, 2019 3:45pm 11 mmol/l 03-21 [facility], [address] [place] [address] Glucose Level June 11, 2020 11:35am 79 mg/dL 74-106 [facility], [address] [place] [address] Glucose Level May 10, 2020 11:50am 137 mg/dL 74-106 [facility], [address] [place] [address] Glucose Level November 24, 2019 8:21am 111 mg/dL 74-106 [facility], [address] [place] [address] Glucose Level November 21, 2019 2:36pm 113 mg/dL 74-106 [facility], [address] [place] [address] Glucose Level October 22, 2019 3:45pm 98 mg/dL 74-106 [facility], [address] [place] [address] Creatinine June 11, 2020 11:35am 0.7 mg/dL 0.5-1.1 [facility], [address] [place] [address] Creatinine May 10, 2020 11:50am 0.7 mg/dL 0.5-1.1 [facility], [address] [place] [address] Creatinine November 24, 2019 8:21am 0.7 mg/dL 0.5-1.1 [facility], [address] [place] [address] Creatinine November 21, 2019 2:36pm 0.7 mg/dL 0.5-1.1 [facility], [address] [place] [address] Creatinine October 22, 2019 3:45pm 0.7 mg/dL 0.5-1.1 [facility], [address] [place] [address] Glomerular Filtration Rate Calc Nove mber 2019 11:35am Greater than 60 ml/min ABOVE 60 [facility], [address] [place] [address] Glomerular Filtration Rate Calc Octo lila 2019 11:50am Greater than 60 ml/min ABOVE 60 [facility], [address] [place] [address] Glomerular Filtration Rate Calc Apri l 2019 8:21am Greater than 60 ml/min ABOVE 60 [facility], [address] [place] [address] 80992 Glomerular Filtration Rate Calc Apri l 2019 2:36pm Greater than 60 ml/min ABOVE 60 [facility], [address] [place] [address] Glomerular Filtration Rate Calc Sergio h 2019 3:45pm Greater than 60 ml/min ABOVE 60 [facility], [address] [place] [address] 57453 Alanine Aminotransferase (ALT/SGPT) June 11, 2020 11:35am 39 U/L 10-49 [facility], [address] [place] [address] Alanine Aminotransferase (ALT/SGPT) May 10, 2020 11:50am 67 U/L 10-49 [facility], [address] [place] [address] Alanine Aminotransferase (ALT/SGPT) November 24, 2019 8:21am 48 U/L 10-49 [facility], [address] [place] [address] Alanine Aminotransferase (ALT/SGPT) November 21, 2019 2:36pm 48 U/L 10-49 [facility], [address] [place] [address] Alanine Aminotransferase (ALT/SGPT) October 22, 2019 3:45pm 54 U/L 10-49 [facility], [address] [place] [address] 75313 Aspartate Amino Transf (AST/SGOT) No vember 2019 11:35am 51 U/L 0-33 [facility], [address] [place] [address] 26262 Aspartate Amino Transf (AST/SGOT) Oc tober 2019 11:50am 64 U/L 0-33 [facility], [address] [place] [address] 18733 Aspartate Amino Transf (AST/SGOT) Ap ril 2019 8:21am 61 U/L 0-33 [facility], [address] [place] [address] Aspartate Amino Transf (AST/SGOT) Ap ril 2019 2:36pm 58 U/L 0-33 [facility], [address] [place] [address] Aspartate Amino Transf (AST/SGOT) [facility] 2019 3:45pm 71 U/L 0-33 [facility], [address] [place] [address] Alkaline Phosphatase June 11 11:35am 124 U/L 45-129 [facility], [address] [place] [address] Alkaline Phosphatase May 10 11:50am 109 U/L 45-129 [facility], [address] [place] [address] Alkaline Phosphatase November 23 0 8:21am 113 U/L 45-129 [facility], [address] [place] [address] Alkaline Phosphatase November 20 0 2:36pm 123 U/L 45-129 [facility], [address] [place] [address] Alkaline Phosphatase October 21 0 3:45pm 143 U/L 45-129 [facility], [address] [place] [address] Calcium Level June 11, 2020 11:35am 9.3 mg/dL 8.5-10.1 [facility], [address] [place] [address] Calcium Level May 10, 2020 11:50am 9.0 mg/dL 8.5-10.1 [facility], [address] [place] [address] Calcium Level November 24, 2019 8:21am 8.7 mg/dL 8.5-10.1 [facility], [address] [place] [address] Calcium Level November 21, 2019 2:36pm 8.9 mg/dL 8.5-10.1 [facility], [address] [place] [address] Calcium Level October 22, 2019 3:45pm 9.5 mg/dL 8.5-10.1 [facility], [address] [place] [address] Total Bilirubin June 11, 2020 11:35am 0.6 mg/dL 0.3-1.2 [facility], [address] [place] [address] Total Bilirubin May 10, 2020 11:50am 0.8 mg/dL 0.3-1.2 [facility], [address] [place] [address] Total Bilirubin November 24, 2019 8:21am 0.5 mg/dL 0.3-1.2 [facility], [address] [place] [address] 81427 Total Bilirubin November 21, 2019 2:36pm 0.4 mg/dL 0.3-1.2 [facility], [address] [place] [address] Total Bilirubin October 22, 2019 3:45pm 0.5 mg/dL 0.3-1.2 [facility], [address] [place] [address] 37163 Albumin June 11, 2020 11:35am 3.5 g/dL 3.2-4.8 [facility], [address] [place] [address] Albumin May 10, 2020 11:50am 3.1 g/dL 3.2-4.8 [facility], [address] [place] [address] Albumin November 24, 2019 8:21am 3.4 g/dL 3.2-4.8 [facility], [address] [place] [address] Albumin November 21, 2019 2:36pm 3.4 g/dL 3.2-4.8 [facility], [address] [place] [address] Albumin October 22, 2019 3:45pm 3.6 g/dL 3.2-4.8 [facility], [address] [place] [address] 36996 Serum Total Protein June 11 11:35am 7.5 g/dL 5.7-8.2 [facility], [address] [place] [address] Serum Total Protein May 10 0 11:50am 7.6 g/dL 5.7-8.2 [facility], [address] [place] [address] Serum Total Protein November 24, 2019 8:21a m 7.3 g/dL 5.7-8.2 [facility], [address] [place] [address] Serum Total Protein November 21, 2019 2:36p m 7.5 g/dL 5.7-8.2 [facility], [address] [place] [address] Serum Total Protein October 22, 2019 3:45p m 8.2 g/dL 5.7-8.2 [facility], [address] [place] [address] 77072 Triglycerides Level June 11 11:35am 141 mg/dL 0-150 [facility], [address] [place] [address] 31978 Triglycerides Level November 24, 2019 8:21a m 187 mg/dL 0-150 [facility], [address] [place] [address] 10290 Cholesterol Level June 11, 2020 11:35am 202 mg/dL 120-200 [facility], [address] [place] [address] 33029 Cholesterol Level November 24, 2019 8:21am 203 mg/dL 120-200 [facility], [address] [place] [address] 09556 HDL Cholesterol June 11, 2020 11:35am 50 mg/dL HDL Less than 40 mg/dL: Major risk for CHDHDL Greater than 59 mg/dL: Low risk for CHD [facility], [address] [place] [address] 44610 HDL Cholesterol November 24, 2019 8:21am 52 mg/dL HDL Less than 40 mg/dL: Major risk for CHDHDL Greater than 59 mg/dL: Low risk for CHD [facility], [address] [place] [address] 09530 LDL Cholesterol, Calculated June 11, 2020 11:35am 124 mg/dL 0-100 [facility], [address] [place] [address] 35216 LDL Cholesterol, Calculated November 232019 8:21am 114 mg/dL 0-100 [facility], [address] [place] [address] 21492 C-Reactive Protein November 24, 2019 8:21am 9.1 mg/L 0.0-5.0 [facility], [address] [place] [address] 23472 Vitamin B12 Level November 21, 2019 2:36pm 467 pg/mL 211-911 [facility], [address] [place] [address] 09792 Folate November 21, 2019 2:36pm 14.5 ng/mL F OLATE INTERPRETATION NORMAL: GREATER THAN 5.38 INDETERMINATE: 3.38 - 5.38 DEFICIENT: LESS THAN 3.37 [facility], [address] [place] [address] 66226 Thyroid Stimulating Hormone (TSH) Ap ril 2019 8:21am 3.50 uIU/mL 0.35-5.50 [facility], [address] [place] [address] 51941 Thyroid Stimulating Hormone (TSH) Ap ril 2019 2:36pm 2.61 uIU/mL 0.35-5.50 [facility], [address] [place] [address] 13042 Rheumatoid Factor November 21, 2019 2:36pm 96.0 IU/mL 0.0-14.0 [facility], [address] [facility] [address] Treponema pallidum Antibody November 202019 2:36pm Non reactive Non React karthik Performed at: [facility] [id number] [place], [place] [id number] Director: Audrey Neumann MD, Phone: [phone] at: [facility] [id number] Director: Renetta Aguilera MD, Phone: [phone] [facility] , [address] [facility] [address] c-ANCA November 21, 2019 2:36pm <1:20 titer Neg:<1:20 [facility] , [address] [facility] [address] p-ANCA November 21, 2019 2:36pm <1:20 titer Neg:<1:20 The presence of positive fluorescence exhibiting P-ANCA orC-ANCA patterns alone is not specific for the diagnosis ofWegener's Granulomatosis (WG) or microscopic polyangiitis.Decisions about treatment should not be based solely onANCA IFA results. The International ANCA Group Consensusrecommends follow up testing of positive sera with both ME-3 and MPO-ANCA enzyme immunoassays. As many as 5% serumsamples are positive only by EIA. Ref. AM J Clin Zhryyt7695;111:507-513. [facility] , [address] [facility] [address] Atypical p-ANCA November 21, 2019 2:36pm <1:20 titer Neg:<1:20 The atypical pANCA pattern has been observed in asignificant percentage of patients with ulcerative colitis,primary sclerosing cholangitis and autoimmune hepatitis.Performed at: [facility] [address] [id number] Director: Renetta Aguilera MD, Phone: [phone] [facility] , [address] [facility] [address] Leukemia/Lymphoma Flow Cyto Results December 22, 2019 1:15pm Comment Lymphocytosis. No significant diagnostic immunophenotypic abnormalitydetected. (See comment.) [facility] , [address] [facility] [address] Leukemia/Lymphoma Flow Cyto Comment December 22, 2019 1:15pm Comment Lymphocytosis is due to increases in T suppressor cells and B cells.Increases in multiple lymphocyte subsets may suggest a reactive process.Clinical correlation is recommended. [facility] , [address] [facility] [address] Leukemia/Lymphoma Accession Number M ay 2019 1:15pm Not Reported [facility] , [address] [facility] [address] Leukemia/Lymphoma Specimen Type December 22, 2019 1:15pm Comment Peripheral blood [facility] , [address] [facility] [address] Leukemia/Lymph Leukocyte Assessment December 22, 2019 1:15pm [...] NK cells 3%. [facility] , [address] [facility] [address] Leukemia/Lymphoma Viability December 1:15pm Comment 96% [facility] , [address] [facility] [address] Leukemia/Lymphoma Phenotype December 1:15pm Not Reported [facility] , [address] [facility] [address] Leukemia/Lymphoma Gating Strategy Ma y 2019 1:15pm Comment 8 color analysis with CD45/SSC [facility] , [address] [facility] [address] Leukemia/Lymphoma Phenotype Chart Ma y 2019 1:15pm Comment CD2 Normal CD3 NormalCD4 Normal CD5 NormalCD7 Normal CD8 GcrvviUI57 Normal CD11b KveovcWO66 Normal CD14 WqypeuKG90 Normal CD19 XhgthpVO49 Normal CD23 See AomyXX07 Normal CD34 JpdyadJI36 Normal CD45 BgobjaKG75 See Text CD57 JsafcwDZ326 Normal HLA-DR NormalKAPPA Normal LAMBDA QpaubqMF38 Normal [facility] , [address] [facility] [address] Pathology Message December 22, 2019 1:15pm Comment Jerod Del Rosario. [facility] , [address] [facility] [address] Cytology Clinician Provided ICD9 December 22, 2019 1:15pm Not Reported [facility] , [address] [facility] [address] Leukemia/Lymphoma Resulting ICD9 December 22, 2019 1:15pm Not Reported [facility] , [address] [facility] [address] Leukemia/Lymph Study Indications December 22, 2019 1:15pm Not Reported [facility] , [address] [facility] [address] Leukemia/Lymphoma Clinical Info December 22, 2019 1:15pm Comment LymphocytosisAccompanying CBC dated 12/17/19 shows:WBC count 10.9, Hgb 14.5, Garret 3.4, Lym 5.5, Lym% 50, Mon 1.3, Mon% 12, Eos0.6, Eos% 5, Bas 0.1, Plt 289K. [facility] , [address] [facility] [address] Leukemia/Lymphoma Comment December 22, 2019 1:15pm Comment Each antibody in this assay was utilized to assess forpotential abnormalities of studied cell populations or tocharacterize identified abnormalities.This test was developed and its performance characteristicsdetermined by [employer]. It has not been cleared or approvedby the U.S. Food and Drug Administration.The FDA has determined that such clearance or approval isnot necessary. This test is used for clinical purposes. Itshould not be regarded as investigational or for research.Performed at: -[facility] [id number] [place], [place] [id number] Director: Alphonse Putnam MD, Phone: [phone] at: [facility] [employer] [id number] [place], [place] [id number] Director: Alphonse Putnam MD, Phone: [phone] [facility] , [address] [place] [address] Whole Blood Vitamin B1 Level November 042019 2:36pm 175.2 nmol/L Performed at: [facility] [email or web address] [id number] Director: Renetta Aguilera MD, Phone: [phone] [facility] , [address] [facility] [address] Vitamin B6 Level November 21, 2019 2:36pm 11.6 ug/L Performed at: [facility] [email or web address] [id number] Director: Renetta Aguilera MD, Phone: [phone] [facility] , [address] [facility] [address] Vitamin E Level November 21, 2019 2:36pm 11.8 mg/L [facility] , [address] [facility] [address] Gamma-Tocopherol Level (Vitamin E) A pril 2019 2:36pm 3.3 mg/L Reference intervals for alpha and gamma- tocopheroldetermined from National Health and Nutrition ExaminationSurvey, 3685-3737. Individuals with alpha- tocopherol levelsless than 5.0 mg/L are considered vitamin E deficient.Performed at: [address] [id number] Director: Renetta Aguilera MD, Phone: [phone] [facility] , [address] [address] Albumin (PEP) November 21, 2019 2:36pm 3.4 g/dL [facility] , [address] [place] [address] Mvqez-2-Jvoqceiut November 21, 2019 2:36pm 0.2 g/dL [facility] , [address] [place] [address] Uvtie-3-Qpbkiesqv November 21, 2019 2:36pm 0.8 g/dL [facility] , [address] [facility] [address] Beta Globulins November 21, 2019 2:36pm 1.0 g/dL [facility] , [address] [facility] [address] M-Adam (RAEANN) November 21, 2019 2:36pm Not observed g/dL Not Observed [facility] , [address] [place] [address] Gamma Globulins November 21, 2019 2:36pm 1.8 g/dL [facility] , [address] [place] [address] Globulin (PEP) November 21, 2019 2:36pm 3.8 g/dL [facility] , [address] [place] [address] Albumin/Globulin (PEP) November 20 020 2:36pm 0.9 [facility] , [address] [facility] [address] Total Protein (PEP) November 21, 2019 2:36p m 7.2 g/dL [facility] , [address] [facility] [address] Protein Electrophoresis Interpret Ap ril 2019 2:36pm Comment Protein electrophoresis scan will follow via computer,mail, or health informatics specialist delivery. [facility] , [address] [place] [address] Protein Electrophoresis Impression A pril 2019 2:36pm See scanned report [facility] , [address] [facility] [address] Anti-Double Strand DNA Antibody Apri l 2019 2:36pm <1 IU/mL Negative <5 Equivocal 5 - 9 Positive >9Performed at: RN - [facility] [address] [place], [place] [id number] Director: Audrey Neumann MD, Phone: [phone] [facility] , [address] [facility] [address] Anti-Nuclear Antibody Screen November 042019 2:36pm Positive Negative <1:80 Borderline 1:80 Positive >1:80 [facility] , [address] [place] [address] Anti-Nuclear Ab Centriole Pattern Ap ril 2019 2:36pm TNP No Reportable Result [facility] , [address] [place] [address] Anti-Nuclear Ab Nucleolar Pattern Ap ril 2019 2:36pm TNP No Reportable Result [facility] , [address] [place] [address] MAXIMUS Nuclear Membrane Pattern November 042019 2:36pm TNP No Reportable Result [facility] , [address] [place] [address] Anti-Nuclear Ab Speckled Pattern Apr il 2019 2:36pm 1:1280 [facility] , [address] [place] [address] Anti-Nuclear Ab Midbody Pattern Apri l 2019 2:36pm TNP No Reportable Result [facility] , [address] [place] [address] Anti-Nuclear Ab Centromere Pattern A pril 2019 2:36pm TNP No Reportable Result [facility] , [address] [place] [address] Anti-Nuclear Ab Nuclear Dot Pattern November 21, 2019 2:36pm TNP No Reportable Result [facility] , [address] [place] [address] Anti-Nuclear Ab PCNA Pattern November 042019 2:36pm TNP No Reportable Result [facility] , [address] [facility]ysztof castillo [facility] [id number] Anti-Nuclear Ab Homogeneous Pattern November 21, 2019 2:36pm TNP No Reportable Result [facility] , 69 [facility] jonathan [facility] [id number] MAXIMUS Spindle Apparatus Pattern November 21, 2019 2:36pm TNP No Reportable Result [facility] [id number] Anti-Nuclear Antibody Comment November 21, 2019 2:36pm Comment A positive MAXIMUS result may occur in healthy individuals (lowtiter) or be associated with a variety of diseases. Seeinterpretation chart which is not all inclusive:Pattern Antigen Detected Suggested Disease Association Homogeneous DNA(ds,ss), SLE - High titers Nucleosomes, Histones Drug-induced SLE Speckled Sm, POWER SUPERINTENDENT, SCL-70, SLE,MCTD,PSS (diffuse form), SS-A/SS-B Sjogrens Nucleolar SCL-70, PM-1/SCL High titers Scleroderma, PM/DM Centromere Centromere PSS (limited form) w/Crest syndrome variable Nuclear Dot Sp100,h85-anqejb Primary Biliary Cirrhosis Nuclear GP210, Primary Biliary CirrhosisMembrane mata A,B,C Performed at: [facility] [place] [id number] Director: Audrey Neumann MD, Phone: [phone] [facility] , [address] [facility] [id number] SS-A Antibody November 21, 2019 2:36pm >8.0 AI [facility] , [address] [facility] [address] SS-B Antibody November 21, 2019 2:36pm <0.2 [facility] , [address] [facility] [address] Cancelled Test November 21, 2019 2:40pm A1c [facility], [address] [place] [address] Specimen Comment (Misc) November 21, 2019 2:40pm Did not pass with mcr check,abn signed Test(s) that were ordered on this requis iton were not collected. [facility], [address] [place] [address] Vitamin D 25-Hydroxy June 11 020 11:35am 25 ng/mL Vitamin D Status 25-OH Vitamin D:Deficiency: <20 ng/mLInsufficiency: 20 - 29 ng/mLOptimal: > or = 30 ng/mLFor 25-OH Vitamin D testing on patients onD2-supplementation and patients for whom quantitationof D2 and D3 fractions is required, the [facility]()25- OH VIT D, (D2,D3), LC/MS/MS is recommended: ordercode 29554 (patients >2yrs).See Note 1Note 1For additional information, please refer tohttp://education.Catavolt/faq/GGL245(This link is being provided for informational/educational purposes only.)THIS TEST WAS PERFORMED AT:[facility] [address]DIANA PAREDES MD [facility] Urine Random Creatinine June 11:44am 27.0 mg/dL THERE IS NO ESTABLISHED RANGE FOR RANDOM URINE CREATININE [facility], [address] [place] [address] Urine Random Creatinine November 24, 2019 8:42am 110.0 mg/dL THERE IS NO ESTABLISHED RANGE FOR RANDOM URINE CREATININE [facility], [address] [place] [address] Urine Microalbumin June 11 0 11:44am Less than 5.0 mg/L 0.0 -29.9 [facility], [address] [place] [address] Urine Microalbumin November 24, 2019 8:42am 12.6 mg/L 0.0-29.9 [facility], [address] [place] [address] Urine Microalbumin/Creatinine Ratio June 11, 2020 11:44am Not Reported [facility], [address] [place] [address] Urine Microalbumin/Creatinine Ratio November 24, 2019 8:42am 11.4 ug/mg 0.0-30.0 [facility], [address] [place] [address] Hemoglobin A1c June 11, 2020 11:35am 6.6 [...] glucose control. * High risk of developing terminal worker complications such asretinopathy, nephropathy, neuropathy, cardiopathy, etc. Some danger of hypoglycemic reaction in Type I diabetics.Some glucose intolerant individuals and "Sub Clinical"diabetics may demonstrate HGBA1C levels in this area. [facility], [address] [place] [address] Hemoglobin A1c November 24, 2019 8:21am 6.4 [...] glucose control. * High risk of developing terminal worker complications such asretinopathy, nephropathy, neuropathy, cardiopathy, etc. Some danger of hypoglycemic reaction in Type I diabetics.Some glucose intolerant individuals and "Sub Clinical"diabetics may demonstrate HGBA1C levels in this area. [facility], [address] [place] [address] Estimated Average Glucose (eAG) [facility] 2019 11:35am 143 mg/dl An A1C of 7% - the goal of diabetic ther apy - is equivalentto an EAG of 154 mg/dl. [facility], [address] [place] [address] Estimated Average Glucose (eAG) Andreyi 2019 8:21am 137 mg/dl An A1C of 7% - the goal of diabetic therapy - is equivalentto an EAG of 154 mg/dl. [facility], [address] [place] [address] Diagnostic Imaging Reports Report Dictated Date/Time Dictated By Status Radiology Report September 08, 2019 3:08pm Pasha Uribe MD completed [place] [address] [address] [facility] [[email or web address] [place] [address] [phone] NAME SEX PT STATUS ACCOUNT NUMBER [place] REG REF [id number] ORDERING PHYSICIAN LOCATION MEDICAL RECORD NO. CORY BAGLEY MD RAD [id number] ATTENDING PHYSICIAN DATE OF DATE OF EXAM/TIME [...] Trans Dt/Tm: Trans by: DT Prt Dt/Tm: [id number]: Total DLP = 0.00 mGy-cm Fluoroscopy Time (in secs): Radiology Report September 08, 2019 3:10pm Pasha Uribe MD completed [place] [id number] [phone] NAME SEX PT STATUS ACCOUNT NUMBER [place] REG REF [id number] ORDERING PHYSICIAN LOCATION MEDICAL RECORD NO. CORY BAGLEY MD RAD [id number] ATTENDING PHYSICIAN DATE OF DATE OF EXAM/TIME [...] Trans Dt/Tm: Trans by: DT Prt Dt/Tm: [id number]: Total DLP = 0.00 mGy-cm Fluoroscopy Time (in secs): Radiology Report September 08, 2019 3:13pm Pasha Uribe MD completed [place] [address] [place] [address] [phone] NAME SEX PT STATUS ACCOUNT NUMBER [place] REG REF [id number] ORDERING PHYSICIAN LOCATION MEDICAL RECORD NO. CORY BAGLEY MD RAD [id number] ATTENDING PHYSICIAN DATE OF DATE OF EXAM/TIME Jose R Church DO 1950 09/08/191417 TYPE / EXAM Xray Shoulder [...] Trans Dt/Tm: Trans by: DT Prt Dt/Tm: [id number]: Total DLP = 0.00 mGy-cm Fluoroscopy Time (in secs): Radiology Report September 08, 2019 3:16pm Pasha Uribe MD completed [place] [address] [place] [address] [phone] NAME SEX PT STATUS ACCOUNT NUMBER [place] REG REF [id number] ORDERING PHYSICIAN LOCATION MEDICAL RECORD NO. CORY BAGLEY MD RAD [id number] ATTENDING PHYSICIAN DATE OF DATE OF EXAM/TIME [...] Trans Dt/Tm: Trans by: DT Prt Dt/Tm: [id number]: Total DLP = 0.00 mGy-cm Fluoroscopy Time (in secs): Radiology Report September 08, 2019 3:17pm Pasha Uribe MD completed [place] [id number] [place] [id number] [phone] NAME SEX PT STATUS ACCOUNT NUMBER [place] REG REF [id number] ORDERING PHYSICIAN LOCATION MEDICAL RECORD NO. CORY BAGLEY MD RAD [id number] ATTENDING PHYSICIAN DATE OF DATE OF EXAM/TIME [...] Trans Dt/Tm: Trans by: DT Prt Dt/Tm: [id number]: Total DLP = 0.00 mGy-cm Fluoroscopy Time (in secs): Radiology Report September 08, 2019 3:55pm Pasha Uribe MD completed [facility] [address] [facility] [[email or web address] TE [place], [place] [address] [phone] NAME SEX PT STATUS ACCOUNT NUMBER [place] REG REF [id number] ORDERING PHYSICIAN LOCATION MEDICAL RECORD NO. CORY BAGLEY MD RAD [id number] ATTENDING PHYSICIAN DATE OF DATE OF EXAM/TIME [...] lesion. Reported By Pasha Uribe MD on 09/08/19 155 Signed By Pasha Uribe MD on 09/08/19 155 Date Time CC: Pasha Uribe MD; Jose R Church DO Techn: CARRC Trans Dt/Tm: Trans by: DT Prt Dt/Tm: [id number]: Total DLP = 0.00 mGy-cm Fluoroscopy Time (in secs): Radiology Report October 28, 2019 1:01pm Pasha Uribe MD completed [facility] [address] [place] [address] [phone] NAME SEX PT STATUS ACCOUNT NUMBER [place] REF [id number] ORDERING PHYSICIAN LOCATION MEDICAL RECORD NO. Jose R Church CT [id number] ATTENDING PHYSICIAN DATE OF DATE OF EXAM/TIME [...] 28, 2019 1:08pm Pasha Uribe MD completed [facility] [address] [place] [address] [phone] NAME SEX PT STATUS ACCOUNT NUMBER [place] REF [id number] ORDERING PHYSICIAN LOCATION MEDICAL RECORD NO. Jose R Church DO CT [id number] ATTENDING PHYSICIAN DATE OF DATE OF EXAM/TIME [...] [place] : 1950 AGE: 69 MR#: [id number] ADMITTING DATE: 11/11/[address]: DISCHARGE DATE: [...] November 11, 2019 3:36pm Roger Parr completed [facility] [address] [place] [id number] [phone] NAME SEX PT STATUS ACCOUNT NUMBER [place] [facility] REG REF [id number] ORDERING PHYSICIAN LOCATION MEDICAL RECORD NO. Ross Kaba M.D. EKG [id number] ATTENDING PHYSICIAN DATE OF DATE OF EXAM/TIME [...] noted. 3. Above findings were confirmed with [facility] eye spectral analysis. 4. Breast attenuation was [...] 02, 2019 11:07am Pasha Uribe MD completed [facility] [address] [place] [id number] [phone] NAME SEX PT STATUS ACCOUNT NUMBER [place] REG REF [id number] ORDERING PHYSICIAN LOCATION MEDICAL RECORD NO. Jose R Church DO RAD [id number] ATTENDING PHYSICIAN DATE OF DATE OF EXAM/TIME Jose R Church DO 1950 12/02/19 / 5 TYPE / EXAM [...] Trans Dt/Tm: Trans by: DT Prt Dt/Tm: [id number]: Total DLP = 0.00 mGy-cm Fluoroscopy Time (in secs): Radiology Report January 02, 2020 10:31am Pasha Uribe MD completed [facility] [address] [place] [id number] [phone] NAME SEX PT STATUS ACCOUNT NUMBER [place] REG REF [id number] ORDERING PHYSICIAN LOCATION MEDICAL RECORD NO. Yan Fermin MRI [id number] ATTENDING PHYSICIAN DATE OF DATE OF EXAM/TIME [...] foraminal stenosis. C3-C4: A moderate, broad-based disc Satsop complex is seen. It is associated with [...] 30, 2020 3:09pm Pasha Uribe MD completed [facility] [address] [place] [id number] [phone] NAME SEX PT STATUS ACCOUNT NUMBER [place] REG REF [id number] ORDERING PHYSICIAN LOCATION MEDICAL RECORD NO. DO RYAN Oliver [id number] ATTENDING PHYSICIAN DATE OF DATE OF EXAM/TIME Jose R Church DO 1950 03/30/20 / 1508 TYPE / EXAM Xray Foot Complete RT REASON FOR EXAM Stub toe foot,bruise ,painful R/O fracture [place] [id number] 1950 ADDENDUM CRITICAL RESULT COMMUNICATED TO ARY [...] Reported By Pasha Uribe MD on 03/30/20 150 Signed By Pasha Uribe MD on 03/30/20 1724 Date Time CC: Pasha Uribe MD; Jose R Ranjit Techn: CARNIDIA Trans Dt/Tm: Trans by: DT Prt Dt/Tm: [id number]: Total DLP = 0.00 mGy-cm Fluoroscopy Time (in secs): Radiology Report June 15, 2020 12:58pm Dao Hickman DO completed [place] [id number] [place] [address] [phone] NAME SEX PT STATUS ACCOUNT NUMBER [place] [facility] ER [id number] ORDERING PHYSICIAN LOCATION MEDICAL RECORD NO. Apollo Valente MD ER [id number] ATTENDING PHYSICIAN DATE OF DATE OF EXAM/TIME [...] Trans Dt/Tm: Trans by: DT Prt Dt/Tm: [id number]: Total DLP = 0.00 mGy-cm Fluoroscopy Time (in secs): Radiology Report June 15, 2020 1:01p m Dao Hickman DO completed [facility] [address] [place] [address] [phone] NAME SEX PT STATUS ACCOUNT NUMBER [place] REG ER [id number] ORDERING PHYSICIAN LOCATION MEDICAL RECORD NO. Apollo Valente MD ER [id number] ATTENDING PHYSICIAN DATE OF DATE OF EXAM/TIME Jose R Church DO 1950 06/15/20 / 9 TYPE / EXAM Xray Elbow AP/LAT LT [...] Reported By Dao Hickman DO on 06/15/20 1301 Signed By Dao Hickman DO on 06/15/20 1302 Date Time CC: Dao Hickman DO; Jose R Church DO Techn: EBEBR Trans Dt/Tm: Trans by: DT Prt Dt/Tm: [id number]: Total DLP = 0.00 mGy-cm Fluoroscopy Time [...] anticoagulant D72.820,I10,R73.03,M81.0 Hypertension FALL stitch removal FALL Reason for Visit Essential (primary) hypertension GERD (gastroesophageal reflux disease) Essential (primary) hypertension Laceration Diabetes mellitus type 2 in obese History of cervical spinal arthrodesis Essential (primary) hypertension History of CVA (cerebrovascular accident) Abrasion Encounters Encounter Location(s) Ar rival/Admit Date Discharge/Depart Date Provider(s) Registered Outpatient [facility] July 01, 2019 2:05pm Jose R Church DO Registered Outpatient [facility] July 04, 2019 9:36am Jose R Church DO Registered Outpatient [facility] July 10, 2019 8:20pm Jose R Church DO Registered Outpatient [facility] July 19, 2019 6:42pm Jose R Church DO Registered Outpatient [facility] July 26, 2019 10:01am Jose R Church DO Registered [facility] July 29, 2019 10:08am Jose R Church DO Registered Outpatient [facility] August 01, 2019 9:25am Jose R Church DO Registered Outpatient [facility] August 01, 2019 1:53pm Jose R Church DO Registered Outpatient [facility] August 07, 2019 4:22pm Jose R Church DO Registered Outpatient [facility] August 15, 2019 4:08pm Jose R Church DO Registered Outpatient [facility] August 28, 2019 7:43am Jose R Church DO Registered Outpatient [facility] September 04, 2019 8:48am Jose R Church DO Registered Outpatient [facility] September 04, 2019 10:20am Jose R Church DO Registered [facility] September 08, 2019 1:38pm CORY BAGELY MD Registered Outpatient [facility] September 11, 2019 2:06pm Jose R Church DO Registered Outpatient [facility] September 18, 2019 3:58pm Jose R Church DO Registered Outpatient [facility] September 26, 2019 2:55pm Jose R Church DO Registered Outpatient [facility] October 02, 2019 11:52am Jose R Church DO Registered Outpatient [facility] October 02, 2019 4:24pm Jose R Cuhrch DO Registered Outpatient [facility] October 09, 2019 11:17am Jose R Church DO Registered Outpatient [facility] October 18, 2019 7:57am Jose R Church DO Departed Physician/Provider Office Visit [facility] October 21, 2019 12:32pm October 21, 2019 1:44pm Jose R Church DO Departed Emergency [facility] ER October 22, 2019 2:20pm October 22, 2019 5:56pm null Registered Outpatient [facility] October 23, 2019 7:47am Jose R Church DO Departed Physician/Provider Office Visit [facility] October 28, 2019 9:59am October 28, 2019 11:04am Jose R Church DO Registered [facility]-Cat Scan October 28, 2019 11:28am Jose R Church DO Registered Outpatient [facility] October 31, 2019 8:34am Jose R Church DO Registered Outpatient [facility] October 31, 2019 2:15pm Jose R Church DO Registered Outpatient [facility] Internal Medicine November 04, 2019 11:51am Master Muñoz MD Registered Outpatient [facility] November 06, 2019 7:53am Jose R Church DO Registered [facility]EKG November 11, 2019 6:48am Ross Kaba Registered Outpatient [facility] November 21, 2019 9:47am Jose R Church DO Registered [facility]-Lab Drop Off November 21, 2019 1:54pm Denisse Best MD Registered [facility]-Laboratory November 24, 2019 8:01am Jose R Church DO Departed Physician/Provider Office Visit [facility] November 25, 2019 8:36am November 25, 2019 10:01am Jose R Church DO Registered Outpatient [facility] November 27, 2019 7:20pm Jose R Church DO Registered [facility] December 02, 2019 9:52am Jose R Church DO Registered Outpatient [facility] December 02, 2019 10:48am Jose R Church DO Registered Outpatient [facility] December 04, 2019 10:44am Jose R Church DO Registered Outpatient [facility] December 04, 2019 10:53am Jose R Church DO Registered Outpatient [facility] December 11, 2019 7:35pm Jose R Church DO Departed Physician/Provider Office Visit [facility] December 16, 2019 2:53pm December 16, 2019 4:56pm Jose R Church DO Registered [facility] December 17, 2019 11:17am Jose R Church DO Registered [facility]Labor[facility] December 22, 2019 12:53pm Jose R Church DO Registered [facility]-MRI/MRA December 31, 2019 2:17pm Yan Fermin DO Registered Outpatient [facility] January 02, 2020 9:36am Jose R Church DO Registered Outpatient [facility] January 08, 2020 8:58am Jose R Ranjit , DO Registered Outpatient [facility] January 15, 2020 8:27am Jose R Church , DO Registered Outpatient [facility] January 22, 2020 3:59pm Jose R Church , DO Registered Outpatient [facility] January 26, 2020 8:53am Jose R Church , DO Registered Outpatient [facility] January 29, 2020 7:53am Jose R Church , DO Registered Outpatient [facility] February 02, 2020 8:40am Jose R Church , DO Registered Outpatient [facility] February 02, 2020 10:32am Jose R Church , DO Registered [facility] February 05, 2020 11:56am Jose R Church , DO Registered Outpatient [facility] February 12, 2020 12:33pm Jose R Church , DO Registered Outpatient [facility] February 19, 2020 7:37am Jose R Church DO Departed Physician/Provider Office Visit [facility] February 20, 2020 11:57am February 20, 2020 12:29pm Anum trevino Registered Outpatient [facility] February 26, 2020 5:20pm Jose R Church DO Registered Outpatient [facility] March 04, 2020 7:15am Jose R Church , Registered Outpatient [facility] March 04, 2020 10:51am Jose R Church DO Departed Physician/Provider Office Visit [facility] March 08, 2020 9:12am March 08, 2020 10:34am Jose R Church DO Registered Outpatient [facility] March 11, 2020 7:22pm Jose R Church DO Registered Outpatient [facility] March 18, 2020 4:33pm Jose R Church DO Registered Outpatient [facility] March 25, 2020 1:21pm Jose R Church , Registered [facility] March 30, 2020 1:57pm Jose R Church DO Departed Physician/Provider Office Visit [facility] March 30, 2020 2:15pm March 30, 2020 3:31pm Anum Erendira carbajal Registered Outpatient [facility] April 01, 2020 7:14am Jose R Church DO Registered Outpatient [facility] April 06, 2020 12:00pm Jose R Church DO Registered Outpatient [facility] April 15, 2020 9:22am Jose R Church DO Registered Outpatient [facility] April 23, 2020 8:57am Jose R Church DO Departed Emergency [facility] ER May 02, 2020 7:57am May 02, 2020 9:17am null Registered Outpatient [facility] May 04, 2020 7:17am Jose R Church DO Registered Outpatient [facility] May 04, 2020 2:13pm Jose R Church DO Registered Outpatient [facility] May 06, 2020 8:14am Jose R Church DO Registered [facility] May 10, 2020 11:39am DAGOBERTO PARR MD Registered Outpatient [facility] May 13, 2020 2:50pm Jose R Church DO Registered Outpatient [facility] May 20, 2020 7:45pm Jose R Church DO Registered Outpatient [facility] May 27, 2020 7:39am Jose R Church DO Registered Outpatient [facility] May 27, 2020 8:29am Jose R Church DO Registered Outpatient [facility] June 03, 2020 11:35am Jose R Church DO Registered Outpatient [facility] June 11, 2020 8:51am Jose R Church DO Registered [facility] June 11, 2020 11:26am Jose R Church DO Departed Physician/Provider Office Visit [facility] June 14, 2020 10:09am June 14, 2020 11:15am Jose R bethea DO Departed Emergency [facility] ER June 15, 2020 11:47am June 15, 2020 1:26pm null Registered Outpatient [facility] June 17, 2020 8:45pm Jose R Church DO Departed Physician/Provider Office Visit [facility] June 24, 2020 11:13am June 24, 2020 12:25pm Magy Howard NP Departed Emergency [facility] ER June 27, 2020 5:06pm June 27, 2020 9:00pm null Recent Diagnosis Onset Date Essential (primary) hypertension GERD (gastroesophageal reflux disease) Essential (primary) hypertension Laceration Diabetes mellitus type 2 in obese History of cervical spinal arthrodesis Essential (primary) hypertension History of CVA (cerebrovascular accident) Abrasion Assessments Diagnosis Onset Date Res olution Status Essential (primary) hypertension chronic GERD (gastroesophageal reflux disease) chronic Essential (primary) hypertension chronic Laceration acute Diabetes mellitus type 2 in obese acute History of cervical spinal arthrodesis acute Essential (primary) hypertension chronic History of CVA (cerebrovascular accident) chronic Abrasion acute Family History Relationship Condition A [...] Event Date Not Given Reason Dose Number [employer] Lot Number Vaccine Information Statement (VIS) Deta il pneumococcal conjugate PCV 13 Decemb er 2013 zoster (shingles) vaccine, live, sc April 03, 2013 zoster (shingles) vaccine, live, sc December 11, 2017 influenza vaccine, inactivated Octob er 2018 [id number] influenza vaccine, inactivated Octob er 2011 influenza vaccine, inactivated Septe mber 2012 influenza vaccine, inactivated Octob er 2013 influenza vaccine, inactivated December 082017 influenza vaccine, inactivated Novem lila 2015 influenza vaccine, inactivated Octob er 2014 influenza vaccine, inactivated Septe mber 28th, 2016 influenza vaccine, inactivated Octob er 2016 influenza vaccine, inactivated Novem lila 2019 [id number] tuberculin skin test August 25, 2015 pneumococcal polysaccharide PPV23 vaccine November 28, 2017 tetanus, diphtheria, acell pertussis 7yrs &up April 03, 2013 Mental Status Observation Response Hardy e Recorded Impairments Mental/Cognitive June 27, 2020 5:06pm Medical Equipment No Medical Equipment Information available Insurance Providers Guarantor [place] Address [address] [place] [address] Contact Info. Home Phone: Payer Policy Id Coverage Id Subscriber's Name Subscriber Id Effective Date Expiration Date MEDICARE [employer] [id number] [place] [facility] [id number] FOR LIFE [id number] [place] [id number] MEDICARE [id number] [place] P[place]O [id number] Self Pay Self N/A [facility] [employer] [facility] [facility] [id number] [place] [id number] [facility] [id number] [place] PILO [id number] Plan of Treatment abrasion to left outer elbow with scab [...] daughter Zuri [place] to get her meds at [facility] and for Margoth solis to be [...] 21, 2019 1:38pm Respiratory rate 18 /min 12-October 21, 2019 1:38pm Oxygen saturation by Pulse oximetry 96 % 95- 100 October 21, 2019 1:38pm BMI (Body Mass Index) 33.5 kg/m2 October 21, 2019 1:38pm Height 58 [in_i] October 22, 2019 3:50pm Weight 158.00 [lb_av] October 22, 2019 3:50pm Body Temperature 97.7 [degF] 97.6-99.5 October 22, 2019 6:48pm Heart Rate 62 /min 60-100 October 22, 2019 6:48pm Respiratory rate 16 /min 12-October 22, 2019 6:48pm Oxygen saturation by Pulse [...] 08, 2020 10:22am Respiratory rate 18 /min 12-March 08, 2020 10:22am Oxygen saturation by Pulse [...] 30, 2020 3:17pm Respiratory rate 18 /min -March 30, 2020 3:17pm Oxygen saturation by Pulse [...] 14, 2020 10:20am Respiratory rate 18 /min 12-June 14, 2020 10:20am Oxygen saturation by Pulse [email or web address]
--- OUTSIDE RECORDS SUMMARY | 2020-09-16 10:27 | CCD | Continuity of Care Document ---
Author Author [facility] Address [address] [place] [address] Phone Support Name Relationship Address [place] [address] [place] [address] CORY BAGLEY PRS [address] [address] Apollo Valente PRS [address] [place] [address] Master Muñoz PRS [address] [place] [address] Love Ross PRS [facility] [place] [address] EstephaniaDenisse kilpatrick PRS [address] [place] [address] YAN FERMIN PRS [facility] [place] [address] Anum Bender PRS [address] [place] [address] DAGOBERTO PARR PRS [address] [place] [address] [place] [address] Allergies, Adverse Reactions, Alerts Allergen Type Severity Reaction Last Updated Verified Status codeine Allergy Unknown June 15, 2020 12:12pm Yes Active diazepam Allergy Unknown June 15, 2020 12:12pm Yes Active flurazepam Allergy Unkno wn June 15, 2020 12:12pm Yes Active levofloxacin Allergy Unk nown June 15, 2020 12:12pm Yes Active meperidine Allergy Unkno wn June 15, 2020 12:12pm Yes Active nitrofurantoin Allergy U nknown June 15, 2020 12:12pm Yes Active rabeprazole Allergy Unkn own June 15, 2020 12:12pm Yes Active Sulfa (Sulfonamide Antibiotics) Allergy Unknown June 15, 2020 12:12pm Yes Active Medications Medication Status Dose Units [...] 10:39am Hydroxychloroquine Discontinued 200 MG PO daily June 24, 2019 10:57am June 24, 2019 11:36am Hydroxychloroquine Discontinued 200 MG PO 2 Times Per Day June 24, 2019 11:36am August 12, 2019 11:30am Afluria Qd (3yr up)(PF) (flu vac [id number] 36mos up(PF)) Discontinued 0.5 ML IM 1 [...] 28, 2019 1:46pm November 25, 2019 9:01am Tjqiatjany-Yiotigyeskzdx-Dfsx Discontinued 1 CAP PO Q12H November 25, 2019 9: 00am February 20, 2020 12:04pm Afluria Qd (3yr up)(PF) (flu vac [id number] 36mos up(PF)) Discontinued 0.5 ML IM 1 [...] Once Per Day June 14, 2020 10:34am Methylprednisolone (Medrol (Jarred)) 4 mg tablets,dose pa ck Discontinued 0 PO .COMPLEX May 02, 2020 9:02am June 14, 2020 10:15am orally per package directions Warfarin (Coumadin) 3 mg tablet Disc ontinued 3 MG PO da jayy December 23, 2018 8:28a m September 29, [...] mg tablet Disc ontinued 1 MG PO da jayy February 21, 2019 6:00 pm December 25, 2019 6:03pm Gabapentin Discontinued 100 MG PO 2 Times Per Day 180 February 27, 2019 9:48am December 25, 2019 6:03pm Gabapentin Discontinued 400 MG PO daily March 10, 2019 8:22am July 10, 2019 4:06pm Acetaminophen (Tylenol) 325 mg tablet Active 350 - 650 MG PO At Bedtime March 10, 2019 8:22am Clindamycin Hcl Discontinued 300 MG PO Four Times a Day March 17, 2019 5 :18pm April 21, [...] Discontinued 5 MG PO As Directed (Daily) December 25, 2019 6:01pm December 26, 2019 6:21am Gabapentin Active 100 MG PO 2 Times Per Day December 25, 2019 6:02pm Gabapentin Active 400 MG PO daily December 25, 2019 6:03pm Warfarin Discontinued 5 MG PO As Directed (Daily) December 26, 2019 6:20am March 22, 2020 [...] (primary) hypertension Active Osteoporosis Active [place]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 Fibromyalgia Active Unspecified cirrhosis of liver Active Lymphocytosis Active Abnormal glucose Activ e Mild intermittent asthma Active Recurrent sinusitis Ac tive Active Acquired absence of spleen Active GERD (gastroesophageal reflux disease) Active History of CVA (cerebrovascular accident) Active Inactive/Resolved Problems Medical Problem Onset Date Status Prediabetes Resolved Procedures Procedure Date Performed Status XRAY HIP LT 2-3 VIEW W/PELVIS Novemb er 2019 11:57am completed Xray Elbow AP/LAT LT June 15, 2020 12:39pm completed Xray Foot Complete RT March 30, 2:08pm completed MRI Cervical without contrast December [...] Xray Knee comp 4 or more LT 2019 2:18pm completed Xray Lumbar spine complete September [...] Capillary INR July 04, 2019 9:36am 2.7 Capillary INR June 26, 2019 3:00pm 2.5 Glucose Level March 08, 2020 10:35am 114 White Blood Count June 11, 2020 11:35am 9.2 10e3/uL 4.45-10.71 [facility], [address] [place] [address] White Blood Count May 10, 2020 11:50a m 14.1 10e3/uL 4.45-10.71 [facility], [address] [place] [address] 47952 White Blood Count December 17, 2019 11:22am 10.9 10e3/uL 4.45-10.71 [facility], [address] [place] [address] White Blood Count November 24, 2019 8:21am 8.8 10e3/uL 4.45-10.71 [facility], [address] [place] [address] White Blood Count November 21, 2019 2:36pm 10.1 10e3/uL 4.45-10.71 [facility], [address] [place] [address] White Blood Count October 22, 2019 3:45pm 14.4 10e3/uL 4.45-10.71 [facility], [address] [place] [address] Red Blood Count June 11, 2020 11:35am 4.74 10e6/uL 4.20-5.40 [facility], [address] [place] [address] Red Blood Count May 10, 2020 11:50am 4.64 10e6/uL 4.20-5.40 [facility], [address] [place] [address] Red Blood Count December 17, 2019 11:22am 4.56 10e6/uL 4.20-5.40 [facility], [address] [place] [address] Red Blood Count November 24, 2019 8:21am 4.39 10e6/uL 4.20-5.40 [facility], [address] [place] [address] Red Blood Count November 21, 2019 2:36pm 4.50 10e6/uL 4.20-5.40 [facility], [address] [place] [address] Red Blood Count October 22, 2019 3:45pm 5.04 10e6/uL 4.20-5.40 [facility], [address] [place] [address] Hemoglobin June 11, 2020 11:35am 14.6 g/dL 10.7-15.4 [facility], [address] [place] [address] Hemoglobin May 10, 2020 11:50am 14.2 g/dL 10.7-15.4 [facility], [address] [place] [address] Hemoglobin December 17, 2019 11:22am 14.5 g/dL 10.7-15.4 [facility], [address] [place] [address] Hemoglobin November 24, 2019 8:21am 14.0 g/dL 10.7-15.4 [facility], [address] [place] [address] Hemoglobin November 21, 2019 2:36pm 14.2 g/dL 10.7-15.4 [facility], [address] [place] [address] Hemoglobin October 22, 2019 3:45pm 15.9 g/dL 10.7-15.4 [facility], [address] [place] [address] 73195 Hematocrit June 11, 2020 11:35am 44.6 % 3747 [facility], [address] [place] [address] 53243 Hematocrit May 10, 2020 11:50am 42.5 % 3747 [facility], [address] [place] [address] 07331 Hematocrit December 17, 2019 11:22am 43.5 % 3747 [facility], [address] [place] [address] 79549 Hematocrit November 24, 2019 8:21am 41.1 % 3747 [facility], [address] [place] [address] 65919 Hematocrit November 21, 2019 2:36pm 42.1 % 3747 [facility], [address] [place] [address] 98458 Hematocrit October 22, 2019 3:45pm 47.4 % 3747 [facility], [address] [place] [address] 72546 Mean Corpuscular Volume June 11:35am 94.1 fl 80-96 [facility], [address] [place] [address] 66690 Mean Corpuscular Volume May 10, 2020 11:50am 91.6 fl 80-96 [facility], [address] [place] [address] 37656 Mean Corpuscular Volume December 16 11:22am 95.4 fl 80-96 [facility], [address] [place] [address] 56791 Mean Corpuscular Volume November 24, 2019 8:21am 93.6 fl 80-96 [facility], [address] [place] [address] 01849 Mean Corpuscular Volume November 21, 2019 2:36pm 93.6 fl 80-96 [facility], [address] [place] [address] 22211 Mean Corpuscular Volume October 22, 2019 3:45pm 94.0 fl 80-96 [facility], [address] [place] [address] 51440 Mean Corpuscular Hemoglobin June 11, 2020 11:35am 30.8 pg 27-31 [facility], [address] [place] [address] 25223 Mean Corpuscular Hemoglobin May 10, 2020 11:50am 30.6 pg 27-31 [facility], [address] [place] [address] 99011 Mean Corpuscular Hemoglobin December 11:22am 31.8 pg 27-31 [facility], [address] [place] [address] 94869 Mean Corpuscular Hemoglobin November 232019 8:21am 31.9 pg 27-31 [facility], [address] [place] [address] 04107 Mean Corpuscular Hemoglobin November 202019 2:36pm 31.6 pg 2731 [facility], [address] [place] [address] 45169 Mean Corpuscular Hemoglobin October 212019 3:45pm 31.5 pg 27-31 [facility], [address] [place] [address] 08603 Mean Corpuscular Hemoglobin Concent June 11, 2020 11:35am 32.7 g/dl 3337 [facility], [address] [place] [address] 74939 Mean Corpuscular Hemoglobin Concent May 10, 2020 11:50am 33.4 g/dl 3337 [facility], [address] [place] [address] 33324 Mean Corpuscular Hemoglobin Concent December 17, 2019 11:22am 33.3 g/dl 3337 [facility], [address] [place] [address] 85793 Mean Corpuscular Hemoglobin Concent November 24, 2019 8:21am 34.1 g/dl [facility], [address] [place] [address] 22157 Mean Corpuscular Hemoglobin Concent November 21, 2019 2:36pm 33.7 g/dl [address] [place] [address] LABORATORY, [address] [place] [address] 77943 Mean Corpuscular Hemoglobin Concent October 22, 2019 3:45pm 33.5 g/dl [facility], [address] [place] [address] 75708 Red Cell Distribution Width June 11, 2020 11:35am 16 % 11-15 [facility], [address] [place] [address] 79644 Red Cell Distribution Width May 10, 2020 11:50am 16 % 11-15 [facility], [address] [place] [address] 76404 Red Cell Distribution Width December 11:22am 16 % 11-15 [facility], [address] [place] [address] 77919 Red Cell Distribution Width November 232019 8:21am 16 % 11-15 [facility], [address] [place] [address] Red Cell Distribution Width November 202019 2:36pm 16 % 11-15 [facility], [address] [place] [address] Red Cell Distribution Width October 212019 3:45pm 16 % 11-15 [facility], [address] [place] [address] Platelet Count June 11, 2020 11:35am 329 10e3/ul 130-472 [facility], [address] [place] [address] Platelet Count May 10, 2020 11:50am 363 10e3/ul 130-472 [facility], [address] [place] [address] Platelet Count December 17, 2019 11:22am 289 10e3/ul 130-472 [facility], [address] [place] [address] Platelet Count November 24, 2019 8:21am 304 10e3/ul 130-472 [facility], [address] [place] [address] Platelet Count November 21, 2019 2:36pm 303 10e3/ul 130-472 [facility], [address] [place] [address] Platelet Count October 22, 2019 3:45pm 280 10e3/ul 130-472 [facility], [address] [place] [address] Mean Platelet Volume June 11 11:35am 10.3 fl 9.1-13.1 [facility], [address] [place] [address] Mean Platelet Volume May 10 20 11:50am 10.4 fl 9.1-13.1 [facility], [address] [place] [address] Mean Platelet Volume December 17, 2019 11:22a m 10.9 fl 9.1-13.1 [facility], [address] [place] [address] Mean Platelet Volume November 23 0 8:21am 11.1 fl 9.1-13.1 [facility], [address] [place] [address] Mean Platelet Volume November 20 0 2:36pm 10.5 fl 9.1-13.1 [facility], [address] [place] [address] Mean Platelet Volume October 21 0 3:45pm 10.7 fl 9.1-13.1 [facility], [address] [place] [address] 77025 Neutrophils (%) (Auto) June 11, 2020 11:35am 31.9 % [address] [facility], [address] [place] [address] Neutrophils (%) (Auto) May 10, 2020 11:50am 51.9 % [address] [facility], [address] [place] [address] 99715 Neutrophils (%) (Auto) December 16 0 11:22am 31.6 % [address] [facility], [address] [place] [address] 97774 Neutrophils (%) (Auto) November 23 8:21am 36.7 % [address] [facility], [address] [place] [address] Neutrophils (%) (Auto) November 20 020 2:36pm 31.8 % [address] [facility], [address] [place] [address] Neutrophils (%) (Auto) October 21 3:45pm 57.6 % [address] [facility], [address] [place] [address] Absolute Neutrophil June 11 11:35am 2.9 # 1.7-7.6 [facility], [address] [place] [address] Absolute Neutrophil May 10 0 11:50am 7.3 # 1.7-7.6 [facility], [address] [place] [address] Absolute Neutrophil December 17, 2019 11:22am 3.4 # 1.7-7.6 [facility], [address] [place] [address] Absolute Neutrophil November 24, 2019 8:21a m 3.2 # 1.7-7.6 [facility], [address] [place] [address] Absolute Neutrophil November 21, 2019 2:36p m 3.2 # 1.7-7.6 [facility], [address] [place] [address] Absolute Neutrophil October 22, 2019 3:45p m 8.3 # 1.7-7.6 [facility], [address] [place] [address] Lymphocytes (%) (Auto) June 11, 2020 11:35am 50.4 % 14-46 [facility], [address] [place] [address] 94455 Lymphocytes (%) (Auto) May 10, 2020 11:50am 33.3 % 14-46 [facility], [address] [place] [address] Lymphocytes (%) (Auto) December 16 0 11:22am 50.2 % 14-46 [facility], [address] [place] [address] 72732 Lymphocytes (%) (Auto) November 23 020 8:21am 41.0 % 14-46 [facility], [address] [place] [address] Lymphocytes (%) (Auto) November 20 020 2:36pm 47.7 % 1446 [facility], [address] [place] [address] Lymphocytes (%) (Auto) October 21 020 3:45pm 27.0 % 1446 [facility], [address] [place] [address] 73673 Lymphocytes # (Auto) June 11 11:35am 4.6 # 0.6-4.6 [facility], [address] [place] [address] 96534 Lymphocytes # (Auto) May 10 20 11:50am 4.7 # 0.6-4.6 [facility], [address] [place] [address] Lymphocytes # (Auto) December 17, 2019 11:22a m 5.5 # 0.6-4.6 [facility], [address] [place] [address] 07549 Lymphocytes # (Auto) November 23 0 8:21am 3.6 # 0.6-4.6 [facility], [address] [place] [address] Lymphocytes # (Auto) November 20 0 2:36pm 4.8 # 0.6-4.6 [facility], [address] [place] [address] 65591 Lymphocytes # (Auto) October 21 0 3:45pm 3.9 # 0.6-4.6 [facility], [address] [place] [address] 17781 Monocytes (%) (Auto) June 11 020 11:35am 11.9 % 4-12 [facility], [address] [place] [address] 90512 Monocytes (%) (Auto) May 10 11:50am 13.1 % 4-12 [facility], [address] [place] [address] 69843 Monocytes (%) (Auto) December 17, 2019 11:22a m 12.0 % 11-15 [facility], [address] [place] [address] 37865 Monocytes (%) (Auto) November 23 0 8:21am 11.4 % 11-15 [facility], [address] [place] [address] 62984 Monocytes (%) (Auto) November 20 0 2:36pm 10.8 % 412 [facility], [address] [place] [address] 91973 Monocytes (%) (Auto) October 21 0 3:45pm 8.4 % 4 [facility], [address] [place] [address] 71369 Monocytes # June 11, 2020 11:35am 1.1 # 0.2-1.2 [facility], [address] [place] [address] 84675 Monocytes # May 10, 2020 11:50am 1.9 # 0.2-1.2 [facility], [address] [place] [address] 77328 Monocytes # December 17, 2019 11:22am 1.3 # 0.2-1.2 [facility], [address] [place] [address] 10923 Monocytes # November 24, 2019 8:21am 1.0 # 0.2-1.2 [facility], [address] [place] [address] 79492 Monocytes # November 21, 2019 2:36pm 1.1 # 0.2-1.2 [facility], [address] [place] [address] 17603 Monocytes # October 22, 2019 3:45pm 1.2 # 0.2-1.2 [facility], [address] [place] [address] 26127 Eosinophils (%) (Auto) June 11, 2020 11:35am 4.9 % 0-7 [facility], [address] [place] [address] 14606 Eosinophils (%) (Auto) May 10, 2020 11:50am 1.0 % 0-7 [facility], [address] [place] [address] 74555 Eosinophils (%) (Auto) December 16 0 11:22am 5.1 % 0-7 [facility], [address] [place] [address] 35671 Eosinophils (%) (Auto) November 23 8:21am 9.8 % 0-7 [facility], [address] [place] [address] Eosinophils (%) (Auto) November 20 2:36pm 8.6 % 0-7 [facility], [address] [place] [address] Eosinophils (%) (Auto) October 21 3:45pm 5.9 % 0-7 [facility], [address] [place] [address] 89797 Absolute Eosinophils (CBC) June 11, 2020 11:35am 0.5 # 0.0-0.5 [facility], [address] [place] [address] 20401 Absolute Eosinophils (CBC) May 102019 11:50am 0.1 # 0.0-0.5 [facility], [address] [place] [address] 09494 Absolute Eosinophils (CBC) December 17, 2019 11:22am 0.6 # 0.0-0.5 [facility], [address] [place] [address] 19683 Absolute Eosinophils (CBC) November h2019 8:21am 0.9 # 0.0-0.5 [facility], [address] [place] [address] Absolute Eosinophils (CBC) November h2019 2:36pm 0.9 # 0.0-0.5 [facility], [address] [place] [address] 65738 Absolute Eosinophils (CBC) October h2019 3:45pm 0.8 # 0.0-0.5 [facility], [address] [place] [address] 12441 Basophils (%) (Auto) June 11 11:35am 0.8 % 0.4-1.3 [facility], [address] [place] [address] 59057 Basophils (%) (Auto) May 10 11:50am 0.3 % 0.4-1.3 [facility], [address] [place] [address] 52748 Basophils (%) (Auto) December 17, 2019 11:22a m 0.9 % 0.4-1.3 [facility], [address] [place] [address] 93871 Basophils (%) (Auto) November 23 0 8:21am 0.9 % 0.4-1.3 [facility], [address] [place] [address] Basophils (%) (Auto) November 20 0 2:36pm 1.0 % 0.4-1.3 [facility], [address] [place] [address] 93056 Basophils (%) (Auto) October 21 0 3:45pm 0.8 % 0.4-1.3 [facility], [address] [place] [address] Absolute Basophils (CBC) June 11:35am 0.1 # 0.0-0.2 [facility], [address] [place] [address] 73186 Absolute Basophils (CBC) May 11:50am 0.0 # 0.0-0.2 [facility], [address] [place] [address] Absolute Basophils (CBC) December 16 020 11:22am 0.1 # 0.0-0.2 [facility], [address] [place] [address] Absolute Basophils (CBC) November 24, 2019 8:21am 0.1 # 0.0-0.2 [facility], [address] [place] [address] Absolute Basophils (CBC) November 21, 2019 2:36pm 0.1 # 0.0-0.2 [facility], [address] [place] [address] 30577 Absolute Basophils (CBC) October 22, 2019 3:45pm 0.1 # 0.0-0.2 [facility], [address] [place], [place] [id number] Immature Granulocyte % (Auto) Novemb er 2019 11:35am 0.1 % 0-2 [facility], [address] [place] [address] 44298 Immature Granulocyte % (Auto) Octobe r 2019 11:50am 0.4 % 0-2 [facility], [address] [place] [address] Immature Granulocyte % (Auto) December 162019 11:22am 0.2 % 0-2 [facility], [address] [place] [address] 33711 Immature Granulocyte % (Auto) November 24, 2019 8:21am 0.2 % 0-2 [facility], [address] [place] [address] 83292 Immature Granulocyte % (Auto) November 21, 2019 2:36pm 0.1 % 0-2 [facility], [address] [place] [address] Immature Granulocyte % (Auto) October 22, 2019 3:45pm 0.3 % 0-2 [facility], [address] [place] [address] Absolute Immature Granulocyte (auto June 11, 2020 11:35am 0.0 # 0-0.1 [facility], [address] [place] [address] Absolute Immature Granulocyte (auto May 10, 2020 11:50am 0.1 # 0-0.1 [facility], [address] [place] [address] Absolute Immature Granulocyte (auto December 17, 2019 11:22am 0.0 # 0-0.1 [facility], [address] [place] [address] [phone] Absolute Immature Granulocyte (auto November 24, 2019 8:21am 0.0 # 0-0.1 [facility], [address] [place] [address] Absolute Immature Granulocyte (auto November 21, 2019 2:36pm 0.0 # 0-0.1 [facility], [address] [place] [address] [id number] Absolute Immature Granulocyte (auto October 22, 2019 3:45pm 0.0 # 0-0.1 [facility], [address] [place] [address] [id number] Add Manual Differential June 11:35am No [facility], [address] [place] [address] Add Manual Differential May 10, 2020 11:50am No [facility], [address] [place] [address] [id number] Add Manual Differential December 16 11:22am Manual diff added [facility], [address] [place] [address] [id number] Add Manual Differential November 24, 2019 8:21am No [facility], [address] [place] [address] Add Manual Differential November 21, 2019 2:36pm No [facility], [address] [place] [address] [id number] Add Manual Differential October 22, 2019 3:45pm No [facility], [address] [place] [address] [phone] Blood Smear Pathologist Review December 042019 11:22am Ssr [facility], [address] [place] [address] [id number] Differential Total Cells Counted December 17, 2019 11:22am 100 [facility], [address] [place] [address] [id number] Neutrophils (Manual) December 17, 2019 11:22a m 30 % 41-77 [facility], [address] [place] [address] [phone] Lymphocytes (Manual) December 17, 2019 11:22a m 55 % 14-46 [facility], [address] [place] [address] [phone] Monocytes (Manual) December 17, 2019 11:22am 11 % 4-12 [facility], [address] [place] [address] [id number] Eosinophils (Manual) December 17, 2019 11:22a m 4 % 0-7 [facility], [address] [place] [address] [id number] Platelet Estimate December 17, 2019 11:22am Appears normal NORMAL [facility], [address] [place] [address] [id number] RBC Morphology 2 December 17, 2019 11:22am Appears normal NORMAL [facility], [address] [place] [address] [id number] [facility] 21, [facility] 2:36pm 20 mm/hr 0-30 [facility], [address] [place] [address] [id number] Prothrombin Time February 05, 2020 12:05pm 24.3 SECONDS 9.6-12.3 [facility], [address] [place] [address] [id number] Prothrombin Time December 22, 2019 1:15pm 26.4 SECONDS 9.6-12.3 [facility], [address] [place] [address] [id number] Prothrombin Time December 17, 2019 11:22am 18.6 SECONDS 9.6-12.3 [facility], [address] [place] [address] 51674 Prothrombin Time October 22, 2019 3:45pm 25.2 SECONDS 9.6-12.3 [facility], [address] [place] [address] 37295 INR International Normalized Ratio [facility] 2019 12:05pm 2.4 0.9-1.1 THE INR IS OPERATIONALLY DEFINED FOR ALEXIS SH PLASMA FROMPATIENTS STABILIZED ON ORAL ANTICOAGULANTS. ROUTINE ANTICOAGULANT THERAPY 2.0-3.0RECURRENT SYSTEMIC EMBOLISM/HEART VALVE REPLACEMENT 2.5-3.5 [facility], [address] [place] [address] 83144 INR International Normalized Ratio [facility] 2019 1:15pm 2.7 0.9-1.1 THE INR IS OPERATIONALLY DEFINED FOR FRESH PLASMA FROMPATIENTS STABILIZED ON ORAL ANTICOAGULANTS. ROUTINE ANTICOAGULANT THERAPY 2.0-3.0RECURRENT SYSTEMIC EMBOLISM/HEART VALVE REPLACEMENT 2.5-3.5 [facility], [address] [place] [address] 31478 INR International Normalized Ratio [facility] 2019 11:22am 1.9 0.9-1.1 THE INR IS OPERATIONALLY DEFINED FOR ALEXIS SH PLASMA FROMPATIENTS STABILIZED ON ORAL ANTICOAGULANTS. ROUTINE ANTICOAGULANT THERAPY 2.0-3.0RECURRENT SYSTEMIC EMBOLISM/HEART VALVE REPLACEMENT 2.5-3.5 [facility], [address] [place] [address] 44771 INR International Normalized Ratio [facility] 2019 3:45pm 2.6 0.9-1.1 THE INR IS OPERATIONALLY DEFINED FOR ALEXIS SH PLASMA FROMPATIENTS STABILIZED ON ORAL ANTICOAGULANTS. ROUTINE ANTICOAGULANT THERAPY 2.0-3.0RECURRENT SYSTEMIC EMBOLISM/HEART VALVE REPLACEMENT 2.5-3.5 [facility], [address] [place] [address] [phone] Partial Thromboplastin Time - [facility] 2019 3:45pm 35.7 SECONDS 22.7-31.6 [facility], [address] [place] [address] Blood Urea Nitrogen June 11 11:35am 9 mg/dL 04-28 [facility], [address] [place] [address] Blood Urea Nitrogen May 10 0 11:50am 15 mg/dL 04-28 [facility], [address] [place] [address] Blood Urea Nitrogen November 24, 2019 8:21a m 8 mg/dL 04-28 [facility], [address] [place] [address] Blood Urea Nitrogen November 21, 2019 2:36p m 10 mg/dL 04-28 [facility], [address] [place] [address] Blood Urea Nitrogen October 22, 2019 3:45p m 9 mg/dL 04-28 [facility], [address] [place] [address] 96354 Sodium Level June 11, 2020 11:35am 144 mmol/L 132-146 [facility], [address] [place] [address] Sodium Level May 10, 2020 11:50am 142 mmol/L 132-146 [facility], [address] [place] [address] 61195 Sodium Level November 24, 2019 8:21am 144 mmol/L 132-146 [facility], [address] [place] [address] 25783 Sodium Level November 21, 2019 2:36pm 144 mmol/L 132-146 [facility], [address] [place] [address] 48563 Sodium Level October 22, 2019 3:45pm 145 mmol/L 132-146 [facility], [address] [place] [address] 89086 Potassium Level June 11, 2020 11:35am 4.0 mmol/L 3.5-5.5 [facility], [address] [place] [address] 42857 Potassium Level May 10, 2020 11:50am 4.3 mmol/L 3.5-5.5 [facility], [address] [place] [address] 21310 Potassium Level November 24, 2019 8:21am 3.9 mmol/L 3.5-5.5 [facility], [address] [place] [address] 03296 Potassium Level November 21, 2019 2:36pm 4.6 mmol/L 3.5-5.5 [facility], [address] [place] [address] 80874 Potassium Level October 22, 2019 3:45pm 4.7 mmol/L 3.5-5.5 [facility], [address] [place] [address] 47577 Chloride Level June 11, 2020 11:35am 109 mmol/l 99-109 [facility], [address] [place] [address] 27180 Chloride Level May 10, 2020 11:50am 108 mmol/l 99-109 [facility], [address] [place] [address] 84912 Chloride Level November 24, 2019 8:21am 112 mmol/l 99-109 [facility], [address] [place] [address] 54120 Chloride Level November 21, 2019 2:36pm 109 mmol/l 99-109 [facility], [address] [place] [address] 13138 Chloride Level October 22, 2019 3:45pm 109 mmol/l 99-109 [facility], [address] [place] [address] 44512 Carbon Dioxide Level June 11 11:35am 32 mmol/l 20-31 [facility], [address] [place] [address] 19806 Carbon Dioxide Level May 10 11:50am 29 mmol/l [facility], [address] [place] [address] 35296 Carbon Dioxide Level November 23 0 8:21am 27 mmol/l [facility], [address] [place] [address] 85967 Carbon Dioxide Level November 20 0 2:36pm 31 mmol/l [facility], [address] [place] [address] Carbon Dioxide Level October 21 0 3:45pm 30 mmol/l [facility], [address] [place] [address] 16457 Anion Gap June 11, 2020 11:35am 7 mmol/l 03-21 [facility], [address] [place] [address] 90782 Anion Gap May 10, 2020 11:50am 9 mmol/l 03-21 [facility], [address] [place] [address] 26096 Anion Gap November 24, 2019 8:21am 9 mmol/l 03-21 [facility], [address] [place] [address] 69989 Anion Gap November 21, 2019 2:36pm 9 mmol/l 03-21 [facility], [address] [place] [address] 09451 Anion Gap October 22, 2019 3:45pm 11 mmol/l - [facility], [address] [place] [address] 74545 Glucose Level June 11, 2020 11:35am 79 mg/dL 74-106 [facility], [address] [place] [address] 86646 Glucose Level May 10, 2020 11:50am 137 mg/dL 74-106 [facility], [address] [place] [address] 08195 Glucose Level November 24, 2019 8:21am 111 mg/dL 74-106 [facility], [address] [place] [address] 31781 Glucose Level November 21, 2019 2:36pm 113 mg/dL 74-106 [facility], [address] [place] [address] 90795 Glucose Level October 22, 2019 3:45pm 98 mg/dL 74-106 [facility], [address] [place] [address] 12850 Creatinine June 11, 2020 11:35am 0.7 mg/dL 0.5-1.1 [facility], [address] [place] [address] Creatinine May 10, 2020 11:50am 0.7 mg/dL 0.5-1.1 [facility], [address] [place] [address] Creatinine November 24, 2019 8:21am 0.7 mg/dL 0.5-1.1 [facility], [address] [place] [address] Creatinine November 21, 2019 2:36pm 0.7 mg/dL 0.5-1.1 [facility], [address] [place] [address] Creatinine October 22, 2019 3:45pm 0.7 mg/dL 0.5-1.1 [facility], [address] [place] [address] Glomerular Filtration Rate Calc Nove mber 2019 11:35am Greater than 60 ml/min ABOVE 60 [facility], [address] [place] [address] Glomerular Filtration Rate Calc Octo lila 2019 11:50am Greater than 60 ml/min ABOVE 60 [facility], [address] [place] [address] Glomerular Filtration Rate Calc Apri l 2019 8:21am Greater than 60 ml/min ABOVE 60 [facility], [address] [place] [address] Glomerular Filtration Rate Calc Apri l 2019 2:36pm Greater than 60 ml/min ABOVE 60 [facility], [address] [place] [address] Glomerular Filtration Rate Calc Sergio h 2019 3:45pm Greater than 60 ml/min ABOVE 60 [facility], [address] [place] [address] Alanine Aminotransferase (ALT/SGPT) June 11, 2020 11:35am 39 U/L 10-49 [facility], [address] [place] [address] Alanine Aminotransferase (ALT/SGPT) May 10, 2020 11:50am 67 U/L 10-49 [facility], [address] [place] [address] Alanine Aminotransferase (ALT/SGPT) November 24, 2019 8:21am 48 U/L 10-49 [facility], [address] [place] [address] Alanine Aminotransferase (ALT/SGPT) November 21, 2019 2:36pm 48 U/L 10-49 [facility], [address] [place] [address] Alanine Aminotransferase (ALT/SGPT) October 22, 2019 3:45pm 54 U/L 10-49 [facility], [address] [place] [address] 38206 Aspartate Amino Transf (AST/SGOT) No vember 2019 11:35am 51 U/L 0-33 [facility], [address] [place] [address] 41191 Aspartate Amino Transf (AST/SGOT) Oc tober 2019 11:50am 64 U/L 0-33 [facility], [address] [place] [address] 55862 Aspartate Amino Transf (AST/SGOT) Ap ril 2019 8:21am 61 U/L 0-33 [facility], [address] [place] [address] 41379 Aspartate Amino Transf (AST/SGOT) Ap ril 2019 2:36pm 58 U/L 0-33 [facility], [address] [place] [address] 19311 Aspartate Amino Transf (AST/SGOT) [facility] 2019 3:45pm 71 U/L 0-33 [facility], [address] [place] [address] 25766 Alkaline Phosphatase June 11 020 11:35am 124 U/L 45-129 [facility], [address] [place] [address] 51510 Alkaline Phosphatase May 10 11:50am 109 U/L 45-129 [facility], [address] [place] [address] 43457 Alkaline Phosphatase November 23 0 8:21am 113 U/L 45-129 [facility], [address] [place] [address] 73657 Alkaline Phosphatase November 20 0 2:36pm 123 U/L 45-129 [facility], [address] [place] [address] 44773 Alkaline Phosphatase October 21 0 3:45pm 143 U/L 45-129 [facility], [address] [place] [address] 74231 Calcium Level June 11, 2020 11:35am 9.3 mg/dL 8.5-10.1 [facility], [address] [place] [address] 13341 Calcium Level May 10, 2020 11:50am 9.0 mg/dL 8.5-10.1 [facility], [address] [place] [address] 62142 Calcium Level November 24, 2019 8:21am 8.7 mg/dL 8.5-10.1 [facility], [address] [place] [address] 88250 Calcium Level November 21, 2019 2:36pm 8.9 mg/dL 8.5-10.1 [facility], [address] [place] [address] Calcium Level October 22, 2019 3:45pm 9.5 mg/dL 8.5-10.1 [facility], [address] [place], [place] [address] Total Bilirubin June 11, 2020 11:35am 0.6 mg/dL 0.3-1.2 [facility], [address] [place], [place] [address] Total Bilirubin May 10, 2020 11:50am 0.8 mg/dL 0.3-1.2 [facility], [address] [place] [address] Total Bilirubin November 24, 2019 8:21am 0.5 mg/dL 0.3-1.2 [facility], [address] [place] [address] Total Bilirubin November 21, 2019 2:36pm 0.4 mg/dL 0.3-1.2 [facility], [address] [place], [place] [address] Total Bilirubin October 22, 2019 3:45pm 0.5 mg/dL 0.3-1.2 [facility], [address] [place], [place] [address] Albumin June 11, 2020 11:35am 3.5 g/dL 3.2-4.8 [facility], [address] [place] [address] Albumin May 10, 2020 11:50am 3.1 g/dL 3.2-4.8 [facility], [address] [place], [place] [address] Albumin November 24, 2019 8:21am 3.4 g/dL 3.2-4.8 [facility], [address] [place] [address] 80685 Albumin November 21, 2019 2:36pm 3.4 g/dL 3.2-4.8 [facility], [address] [place] [address] Albumin October 22, 2019 3:45pm 3.6 g/dL 3.2-4.8 [facility], [address] [place] [address] 01991 Serum Total Protein June 11 11:35am 7.5 g/dL 5.7-8.2 [facility], [address] [place] [address] 46182 Serum Total Protein May 10 0 11:50am 7.6 g/dL 5.7-8.2 [facility], [address] [place] [address] Serum Total Protein November 24, 2019 8:21a m 7.3 g/dL 5.7-8.2 [facility], [address] [place] [address] Serum Total Protein November 21, 2019 2:36p m 7.5 g/dL 5.7-8.2 [facility], [address] [place], [place] [address] Serum Total Protein October 22, 2019 3:45p m 8.2 g/dL 5.7-8.2 [facility], [address] [place], [place] [address] Triglycerides Level June 11 11:35am 141 mg/dL 0-150 [facility], [address] [place] [address] Triglycerides Level November 24, 2019 8:21a m 187 mg/dL 0-150 [facility], [address] [place] [address] 18631 Cholesterol Level June 11, 2020 11:35am 202 mg/dL 120-200 [facility], [address] [place] [address] 79010 Cholesterol Level November 24, 2019 8:21am 203 mg/dL 120-200 [facility], [address] [place] [address] 06358 HDL Cholesterol June 11, 2020 11:35am 50 mg/dL HDL Less than 40 mg/dL: Major risk for CHDHDL Greater than 59 mg/dL: Low risk for CHD [facility], [address] [place] [address] HDL Cholesterol November 24, 2019 8:21am 52 mg/dL HDL Less than 40 mg/dL: Major risk for CHDHDL Greater than 59 mg/dL: Low risk for CHD [facility], [address] [place] [address] LDL Cholesterol, Calculated June 11, 2020 11:35am 124 mg/dL 0-100 [facility], [address] [place] [address] LDL Cholesterol, Calculated November 232019 8:21am 114 mg/dL 0-100 [facility], [address] [place] [address] C-Reactive Protein November 24, 2019 8:21am 9.1 mg/L 0.0-5.0 [facility], [address] [place] [address] Vitamin B12 Level November 21, 2019 2:36pm 467 pg/mL 211-911 [facility], [address] [place], [place] [address] Folate November 21, 2019 2:36pm 14.5 ng/mL F OLATE INTERPRETATION NORMAL: GREATER THAN 5.38 INDETERMINATE: 3.38 - 5.38 DEFICIENT: LESS THAN 3.37 [facility], [address] [place] [address] Thyroid Stimulating Hormone (TSH) Ap [facility] 2019 8:21am 3.50 uIU/mL 0.35-5.50 [facility], [address] [place] [address] Thyroid Stimulating Hormone (TSH) Ap [facility] 2019 2:36pm 2.61 uIU/mL 0.35-5.50 [facility], [address] [place] [address] Rheumatoid Factor November 21, 2019 2:36pm 96.0 IU/mL 0.0-14.0 [facility], [address] [place] [address] Treponema pallidum Antibody November 202019 2:36pm Non reactive Non React karthik Performed at: - [facility] [address] [id number] Director: Audrey Neumann MD, Phone: [phone] at: - [facility] [address] [id number] Director: Renetta Aguilera MD, Phone: [phone] [facility] , [address] [facility] [address] c-ANCA November 21, 2019 2:36pm <1:20 titer Neg:<1:20 [facility] , [address] [facility] [address] p-ANCA November 21, 2019 2:36pm <1:20 titer Neg:<1:20 The presence of positive fluorescence exhibiting P-ANCA orC-ANCA patterns alone is not specific for the diagnosis ofWegener's Granulomatosis (WG) or microscopic polyangiitis.Decisions about treatment should not be based solely onANCA IFA results. The International ANCA Group Consensusrecommends follow up testing of positive sera with both DE-3 and MPO-ANCA enzyme immunoassays. As many as 5% serumsamples are positive only by EIA. Ref. AM J Clin Dflajn8011;111:507-513. [facility] , [address] [facility] [address] Atypical p-ANCA November 21, 2019 2:36pm <1:20 titer Neg:<1:20 The atypical pANCA pattern has been observed in asignificant percentage of patients with ulcerative colitis,primary sclerosing cholangitis and autoimmune hepatitis.Performed at: [address] [id number] Director: Renetta Aguilera MD, Phone: [phone] [facility] , [address] [facility] [address] Leukemia/Lymphoma Flow Cyto Results December 22, 2019 1:15pm Comment Lymphocytosis. No significant diagnostic immunophenotypic abnormalitydetected. (See comment.) [facility] , [address] [facility] [address] Leukemia/Lymphoma Flow Cyto Comment December 22, 2019 1:15pm Comment Lymphocytosis is due to increases in T suppressor cells and B cells.Increases in multiple lymphocyte subsets may suggest a reactive process.Clinical correlation is recommended. [facility] , [address] [facility] [address] Leukemia/Lymphoma Accession Number M ay 2019 1:15pm Not Reported [facility] , [address] [facility] [address] Leukemia/Lymphoma Specimen Type December 22, 2019 1:15pm Comment Peripheral blood [facility] , [address] [facility] [address] Leukemia/Lymph Leukocyte Assessment December 22, 2019 1:15pm [...] cells 3%. [facility] , [address] [facility] [address] Leukemia/Lymphoma Viability December 1:15pm Comment 96% [facility] , [address] [facility] [address] Leukemia/Lymphoma Phenotype December 1:15pm Not Reported [facility] , [address] [facility] [address] Leukemia/Lymphoma Gating Strategy Pr y 2019 1:15pm Comment 8 color analysis with CD45/SSC [facility] , [address] [facility] [address] Leukemia/Lymphoma Phenotype Chart Pr y 2019 1:15pm Comment CD2 Normal CD3 NormalCD4 Normal CD5 NormalCD7 Normal CD8 BxetlqWJ33 Normal CD11b VsvkxvJH76 Normal CD14 FceeurJE04 Normal CD19 UfwsscPQ41 Normal CD23 See AilpZK69 Normal CD34 YrhahqBU73 Normal CD45 EockxwFN80 See Text CD57 UqtfhpDK165 Normal HLA-DR NormalKAPPA Normal LAMBDA OvftvtRT44 Normal [facility] , [address] [facility] [address] Pathology Message December 22, 2019 1:15pm Comment Jerod Del Rosario. [facility] , [address] [facility] [address] Cytology Clinician Provided ICD9 December 22, 2019 1:15pm Not Reported [facility] , [address] [facility] [address] Leukemia/Lymphoma Resulting ICD9 December 22, 2019 1:15pm Not Reported [facility] , [address] [facility] [address] Leukemia/Lymph Study Indications December 22, 2019 1:15pm Not Reported [facility] , [address] [facility] [address] Leukemia/Lymphoma Clinical Info December 22, 2019 1:15pm Comment LymphocytosisAccompanying CBC dated 12/17/19 shows:WBC count 10.9, Hgb 14.5, Garret 3.4, Lym 5.5, Lym% 50, Mon 1.3, Mon% 12, Eos0.6, Eos% 5, Bas 0.1, Plt 289K. [facility] , [address] [facility] [address] Leukemia/Lymphoma Comment December 22, 2019 1:15pm Comment Each antibody in this assay was utilized to assess forpotential abnormalities of studied cell populations or tocharacterize identified abnormalities.This test was developed and its performance characteristicsdetermined by [employer]. It has not been cleared or approvedby the U.S. Food and Drug Administration.The FDA has determined that such clearance or approval isnot necessary. This test is used for clinical purposes. Itshould not be regarded as investigational or for research.Performed at: -Y - [facility] [id number] [place], [place] [id number] Director: Alphonse Putnam MD, Phone: [phone] at: - [facility] [id number] [place], [place] [id number] Director: Alphonse Putnam MD, Phone: [phone] [facility] , [address] [facility] [address] Whole Blood Vitamin B1 Level November 042019 2:36pm 175.2 nmol/L Performed at: [facility] [address] [place] [id number] Director: Renetta Aguilera MD, Phone: [phone] [facility] , [address] [facility] [address] Vitamin B6 Level November 21, 2019 2:36pm 11.6 ug/L Performed at: [employer] - [facility] [address] [id number] Director: Renetta Aguilera MD, Phone: [phone] [facility] , [address] [facility] [address] Vitamin E Level November 21, 2019 2:36pm 11.8 mg/L [facility] , [address] [facility] [address] Gamma-Tocopherol Level (Vitamin E) A pril 2019 2:36pm 3.3 mg/L Reference intervals for alpha and gamma- tocopheroldetermined from National Health and Nutrition ExaminationSurvey, 8148-6363. Individuals with alpha- tocopherol levelsless than 5.0 mg/L are considered vitamin E deficient.Performed at: [facility] [employer] [id number] Director: Renetta Aguilera MD, Phone: [phone] [facility] , [address] [facility] [address] Albumin (PEP) November 21, 2019 2:36pm 3.4 g/dL [facility] , [address] [facility] [address] Xbqlc-3-Zgsxsptsg November 21, 2019 2:36pm 0.2 g/dL [facility] , [address] [facility] [address] Tsvpv-1-Vocqolugz November 21, 2019 2:36pm 0.8 g/dL [facility] , [address] [facility] [address] Beta Globulins November 21, 2019 2:36pm 1.0 g/dL [facility] , [address] [facility] [address] M-Adam (RAEANN) November 21, 2019 2:36pm Not observed g/dL Not Observed [facility] , [address] [facility] [address] Gamma Globulins November 21, 2019 2:36pm 1.8 g/dL [facility] , [address] [facility] [address] Globulin (PEP) November 21, 2019 2:36pm 3.8 g/dL [facility] , [address] [facility] [address] Albumin/Globulin (PEP) November 20 020 2:36pm 0.9 [facility] , [address] [facility] [address] Total Protein (PEP) November 21, 2019 2:36p m 7.2 g/dL [facility] , [address] [facility] [address] Protein Electrophoresis Interpret Ap ril 2019 2:36pm Comment Protein electrophoresis scan will follow via computer,mail, or anthropologist delivery. [facility] , [address] [facility] [address] Protein Electrophoresis Impression A pril 2019 2:36pm See scanned report [facility] , [address] [facility] [address] Anti-Double Strand DNA Antibody Apri l 2019 2:36pm <1 IU/mL Negative <5 Equivocal 5 - 9 Positive >9Performed at: RN - [facility] [address] [id number] Director: Audrey Neumann MD, Phone: [phone] [facility] , [address] [facility] [address] Anti-Nuclear Antibody Screen November 042019 2:36pm Positive Negative <1:80 Borderline 1:80 Positive >1:80 [facility] , [address] [facility] [address] Anti-Nuclear Ab Centriole Pattern Ap ril 2019 2:36pm TNP No Reportable Result [facility] , [address] [facility] [address] Anti-Nuclear Ab Nucleolar Pattern Ap ril 2019 2:36pm TNP No Reportable Result [facility] , [address] [facility] [address] MAXIM[employer] Nuclear Membrane Pattern November 042019 2:36pm TNP No Reportable Result [facility] , [address] [facility] [address] Anti-Nuclear Ab Speckled Pattern Apr il 2019 2:36pm 1:1280 Lab Olvin , [address] [place] [address] Anti-Nuclear Ab Midbody Pattern Apri l 2019 2:36pm TNP No Reportable Result [facility] , [address] [place] [address] Anti-Nuclear Ab Centromere Pattern A pril 2019 2:36pm TNP No Reportable Result [facility] , [address] [place] [address] Anti-Nuclear Ab Nuclear Dot Pattern November 21, 2019 2:36pm TNP No Reportable Result [facility] , [address] [place] [address] Anti-Nuclear Ab PCNA Pattern November 042019 2:36pm TNP No Reportable Result [facility] , [address] [place] [address] Anti-Nuclear Ab Homogeneous Pattern November 21, 2019 2:36pm TNP No Reportable Result [facility] Olvin , [address] [place] [address] MAXIMUS Spindle Apparatus Pattern November 21, 2019 2:36pm TNP No Reportable Result [facility] , [address] [place] [address] Anti-Nuclear Antibody Comment November 21, 2019 2:36pm Comment A positive MAXIMUS result may occur in healthy individuals (lowtiter) or be associated with a variety of diseases. Seeinterpretation chart which is not all inclusive:Pattern Antigen Detected Suggested Disease Association Homogeneous DNA(ds,ss), SLE - High titers Nucleosomes, Histones Drug-induced SLE Speckled Sm, BAKERY MACHINE MECHANIC SUPERVISOR, SCL-70, SLE,MCTD,PSS (diffuse form), SS-A/SS-B Sjogrens Nucleolar SCL-70, PM-1/SCL High titers Scleroderma, PM/DM Centromere Centromere PSS (limited form) w/Crest syndrome variable Nuclear Dot Sp100,m55-mrruhq Primary Biliary Cirrhosis Nuclear GP210, Primary Biliary CirrhosisMembrane mata A,B,C Performed at: RN - [facility] [address] [id number] Director: Audrey Neumann MD, Phone: [phone] [facility] , [facility] [address] SS-A Antibody November 21, 2019 2:36pm >8.0 [facility] , [address] [facility] [address] SS-B Antibody November 21, 2019 2:36pm <0.2 [facility] , [address] [place] [address] Cancelled Test November 21, 2019 2:40pm A1c [facility], [address] [place] [address] Specimen Comment (Misc) November 21, 2019 2:40pm Did not pass with mcr check,abn signed Test(s) that were ordered on this requis iton were not collected. [facility], [address] [place] [address] Vitamin D 25-Hydroxy June 11 11:35am 25 ng/mL Vitamin D Status 25-OH Vitamin D:Deficiency: <20 ng/mLInsufficiency: 20 - 29 ng/mLOptimal: > or = 30 ng/mLFor 25-OH Vitamin D testing on patients onD2-supplementation and patients for whom quantitationof D2 and D3 fractions is required, the QuestAssureD(TM)25- OH VIT D, (D2,D3), LC/MS/MS is recommended: ordercode 49825 (patients >2yrs).See Note 1Note 1For additional information, please refer tohttp://education.[employer]/faq/WBP030(This link is being provided for informational/educational purposes only.)THIS TEST WAS PERFORMED AT:[facility] [address]DIANA PAREDES MD [facility] Urine Random Creatinine June 11:44am 27.0 mg/dL THERE IS NO ESTABLISHED RANGE FOR RANDOM URINE CREATININE [facility], [address] [place] [address] Urine Random Creatinine November 24, 2019 8:42am 110.0 mg/dL THERE IS NO ESTABLISHED RANGE FOR RANDOM URINE CREATININE [facility], [address] [place] [address] Urine Microalbumin June 11 0 11:44am Less than 5.0 mg/L 0.0 -29.9 [facility], [address] [place] [address] Urine Microalbumin November 24, 2019 8:42am 12.6 mg/L 0.0-29.9 [facility], [address] [place] [address] Urine Microalbumin/Creatinine Ratio June 11, 2020 11:44[address] Not Reported [facility], [address] [place] [address] Urine Microalbumin/Creatinine Ratio November 24, 2019 8:42am 11.4 ug/mg 0.0-30.0 [facility], [address] [place] [address] Hemoglobin A1c June 11, 2020 11:35am 6.6 [...] glucose control. * High risk of developing parts counterman complications such asretinopathy, nephropathy, neuropathy, cardiopathy, etc. Some danger of hypoglycemic reaction in Type I diabetics.Some glucose intolerant individuals and "Sub Clinical"diabetics may demonstrate HGBA1C levels in this area. [facility], [address] [place] [address] Hemoglobin A1c November 24, 2019 8:21am 6.4 [...] glucose control. * High risk of developing parts counterman complications such asretinopathy, nephropathy, neuropathy, cardiopathy, etc. Some danger of hypoglycemic reaction in Type I diabetics.Some glucose intolerant individuals and "Sub Clinical"diabetics may demonstrate HGBA1C levels in this area. [facility], [address] [place] [address] Estimated Average Glucose (eAG) Nove mber 2019 11:35am 143 mg/dl An A1C of 7% - the goal of diabetic ther apy - is equivalentto an EAG of 154 mg/dl. [facility], [address] [place] [address] Estimated Average Glucose (eAG) Apri l 2019 8:21am 137 mg/dl An A1C of 7% - the goal of diabetic therapy - is equivalentto an EAG of 154 mg/dl. [facility], [address] [place] [address] Diagnostic Imaging Reports Report Dictated Date/Time Dictated By Status Radiology Report September 08, 2019 3:08pm Pasha Uribe MD completed [facility] [address] [place] [address] [phone] NAME SEX PT STATUS ACCOUNT NUMBER [place] REG REF [id number] ORDERING PHYSICIAN LOCATION MEDICAL RECORD NO. CORY BAGLEY MD RAD [id number] ATTENDING PHYSICIAN DATE OF DATE OF EXAM/TIME [...] osteoarthritis. Reported By Pasha Uribe MD on 09/08/19 1508 Signed By Pasha Uribe MD on 09/08/19 1510 Date Time CC: Pasha Uribe MD; Jose R Church DO Techn: CARRC Trans Dt/Tm: Trans by: DT Prt Dt/Tm: [id number]: Total DLP = 0.00 mGy-cm Fluoroscopy Time (in secs): Radiology Report September 08, 2019 3:10pm Pasha Uribe MD completed [facility] [address] [place] [address] [phone] NAME SEX PT STATUS ACCOUNT NUMBER [place] REG REF [id number] ORDERING PHYSICIAN LOCATION MEDICAL RECORD NO. CORY BAGLEY MD RAD [id number] ATTENDING PHYSICIAN DATE OF DATE OF EXAM/TIME Jose R Church DO 1950 02/03/20 / 1418 TYPE / EXAM Xray Hand Complete LT [...] 09/08/191509 Signed By Pasha Uribe MD on 09/08/19 151 Date Time CC: Pasha Uribe MD; Jose R Church DO Techn: CARRC Trans Dt/Tm: Trans by: DT Prt Dt/Tm: [id number]: Total DLP = 0.00 mGy-cm Fluoroscopy Time (in secs): Radiology Report September 08, 2019 3:13pm Pasha Uribe MD completed [place] [id number] [place] [address] [phone] NAME SEX PT STATUS ACCOUNT NUMBER [place] REG REF [id number] ORDERING PHYSICIAN LOCATION MEDICAL RECORD NO. CORY BAGLEY MD RAD [id number] ATTENDING PHYSICIAN DATE OF DATE OF EXAM/TIME Jose R Church DO 1950 09/08/19 / 141 TYPE / EXAM Xray Shoulder complete LT [...] Signed By Pasha Uribe MD on 09/08/19 151 Date Time CC: Pasha Uribe MD; Jose R Church DO Techn: CARRC Trans Dt/Tm: Trans by: DT Prt Dt/Tm: [id number]: Total DLP = 0.00 mGy-cm Fluoroscopy Time (in secs): Radiology Report September 08, 2019 3:16pm Pasha Uribe MD completed [place] [address] [place] [address] [phone] NAME SEX PT STATUS ACCOUNT NUMBER [place] REG REF [id number] ORDERING PHYSICIAN LOCATION MEDICAL RECORD NO. CORY BAGLEY MD RAD [id number] ATTENDING PHYSICIAN DATE OF DATE OF EXAM/TIME [...] 09/08/191515 Signed By Pasha Uribe MD on 09/08/19 151 Date Time CC: Pasha Uribe MD; Jose R Church DO Techn: CARRC Trans Dt/Tm: Trans by: DT Prt Dt/Tm: : Total DLP = 0.00 mGy-cm Fluoroscopy Time (in secs): Radiology Report September 08, 2019 3:17pm Pasha Uribe MD completed [place] [address] [place] [address] [phone] NAME SEX PT STATUS ACCOUNT NUMBER [place] REG REF [id number] ORDERING PHYSICIAN LOCATION MEDICAL RECORD NO. CORY BAGLEY MD RAD [id number] ATTENDING PHYSICIAN DATE OF DATE OF EXAM/TIME RanjitJose R moon 1950 09/08/191417 TYPE / EXAM Xray Knee [...] Trans Dt/Tm: Trans by: DT Prt Dt/Tm: [phone]: Total DLP = 0.00 mGy-cm Fluoroscopy Time (in secs): Radiology Report September 08, 2019 3:55pm Pasha Uribe MD completed [facility] [address] [place] [id number] [phone] NAME SEX PT STATUS ACCOUNT NUMBER [place] REG REF [id number] ORDERING PHYSICIAN LOCATION MEDICAL RECORD NO. CORY BAGLEY MD RAD [id number] ATTENDING PHYSICIAN DATE OF DATE OF EXAM/TIME RanjitJose R moon 1950 09/08/191416 TYPE / EXAM Xray Lumbar [...] lytic or blastic osseous lesion. Reported By aPsha Uribe MD on 09/08/19 1555 Signed By Pasha Uribe MD on 09/08/19 1558 Date Time CC: Pasha Uribe MD; Jose R Church DO Techn: CARRC Trans Dt/Tm: Trans by: DT Prt Dt/Tm: [id number]: Total DLP = 0.00 mGy-cm Fluoroscopy Time (in secs): Radiology Report October 28, 2019 1:01pm Pasha Uribe MD completed [facility] [address] [place] [address] [phone] NAME SEX PT STATUS ACCOUNT NUMBER [place] REG REF [id number] ORDERING PHYSICIAN LOCATION MEDICAL RECORD NO. Jose R Church DO CT [id number] ATTENDING PHYSICIAN DATE OF DATE OF EXAM/TIME Jose R Church DO 1950 10/28/19 / 1258 TYPE / EXAM CT Head without contrast REASON FOR EXAM 9.5/10 GARCIA s/p fall on Coumadin; r/o blee [...] Trans Dt/Tm: Trans by: DT Prt Dt/Tm: [id number]: Total DLP = 623.00 mGy-cm 7442-9372: Total Radiation Dose = 1.9313 mSv Lifetime Dose: 1.9313 mSv Radiology Report October 28, 2019 1:08pm Pasha Uribe MD completed [facility] [address] [place] [id number] [phone] NAME SEX PT STATUS ACCOUNT NUMBER [place] REG REF [id number] ORDERING PHYSICIAN LOCATION MEDICAL RECORD NO. Jose R Church DO CT [id number] ATTENDING PHYSICIAN DATE OF DATE OF EXAM/TIME Jose R Church DO 1950 10/28/19 / 1258 TYPE / EXAM CT C-Spine without contrast [...] [place] : 1950 AGE: 69 MR#: [id number] ADMITTING DATE: 11/11/[address]: DISCHARGE DATE: [...] M.D. Cosigner: D: RAYNA 11/11/19 1036 T: BEAMI 11/11/19 1056 CC: Roger Parr M.D.; Jose R Church DO LAST EDIT: Radiology Report November 11, 2019 3:36pm Roger Parr completed [facility] [address] [place] [id number] [phone] NAME SEX PT STATUS ACCOUNT NUMBER [place] REG REF [id number] ORDERING PHYSICIAN LOCATION MEDICAL RECORD NO. Ross Kaba M.D. EKG [id number] ATTENDING PHYSICIAN DATE OF DATE OF EXAM/TIME [...] noted. 3. Above findings were confirmed with [facility] eye spectral analysis. 4. Breast attenuation was [...] 02, 2019 11:07am Pasha Uribe MD completed [facility] [address] [place] [address] [phone] NAME SEX PT STATUS ACCOUNT NUMBER [place] REF [id number] ORDERING PHYSICIAN LOCATION MEDICAL RECORD NO. Jose R Church DO RAD [id number] ATTENDING PHYSICIAN DATE OF DATE OF EXAM/TIME Jose R Church DO 1950 12/02/19 / 1104 TYPE / EXAM Xray Cervical spine complete [...] 12/02/191106 Signed By Pasha Uribe MD on 12/02/19 112 Date Time CC: Pasha Uribe MD; Jose R Church DO Techn: BAKLE Trans Dt/Tm: Trans by: DT Prt Dt/Tm: [id number]: Total DLP = 0.00 mGy-cm Fluoroscopy Time (in secs): Radiology Report January 02, 2020 10:31am Pasha Uribe MD completed [facility] [address] [place] [id number] [phone] NAME SEX PT STATUS ACCOUNT NUMBER [place] REG REF [id number] ORDERING PHYSICIAN LOCATION MEDICAL RECORD NO. Yan Fermin DO MRI [id number] ATTENDING PHYSICIAN DATE OF DATE OF EXAM/TIME Jose R Church DO 1950 12/31/191515 TYPE / EXAM MRI Cervical without contrast [...] foraminal stenosis. C3-C4: A moderate, broad-based disc [place] complex is seen. It is associated with [...] Uribe MD; Jose R Church DO Techn: FROJO Trans Dt/Tm: Trans by: DT Prt Dt/Tm: : Total DLP = 0.00 mGy-cm : Total Radiation Dose = 0.0000 mSv Lifetime Dose: 1.9313 mSv Radiology Report March 30, 2020 3:09pm Pasha Uribe MD completed [facility] [address] [place] [id number] [phone] NAME SEX PT STATUS ACCOUNT NUMBER [place] REG REF [id number] ORDERING PHYSICIAN LOCATION MEDICAL RECORD NO. Jose R Church DO RAD [id number] ATTENDING PHYSICIAN DATE OF DATE OF EXAM/TIME Jose R Church DO 1950 03/30/20 / 1508 TYPE / EXAM Xray Foot Complete RT REASON FOR EXAM Stub toe foot,bruise ,painful R/O fracture [place] [id number] 1950 ADDENDUM CRITICAL RESULT COMMUNICATED TO ARY [...] Uribe MD; Jose R Church DO Techn: CARAI Trans Dt/Tm: Trans by: DT Prt Dt/Tm: [id number]: Total DLP = 0.00 mGy-cm Fluoroscopy Time (in secs): Radiology Report June 15, 2020 12:58pm Dao Hickman DO completed [facility] [address] [facility] [address] [place] [address] [phone] NAME SEX PT STATUS ACCOUNT NUMBER [place] [facility] ER [id number] ORDERING PHYSICIAN LOCATION MEDICAL RECORD NO. Apollo Valente MD ER [id number] ATTENDING PHYSICIAN DATE OF DATE OF EXAM/TIME [...] Trans Dt/Tm: Trans by: DT Prt Dt/Tm: [id number]: Total DLP = 0.00 mGy-cm Fluoroscopy Time (in secs): Radiology Report June 15, 2020 1:01p ivet Hickman DO completed [facility] [address] [address] [phone] NAME SEX PT STATUS ACCOUNT NUMBER [place] [facility] ER [id number] ORDERING PHYSICIAN LOCATION MEDICAL RECORD NO. pAollo Valente MD ER [id number] ATTENDING PHYSICIAN DATE OF DATE OF EXAM/TIME [...] Trans Dt/Tm: Trans by: DT Prt Dt/Tm: [id number]: Total DLP = 0.00 mGy-cm Fluoroscopy Time (in secs): Health Concerns Health Concerns may be documented in an alternate section. Advance Directives Advance Directive Response Recorded Date/Time Advanced Directive No No [email or web address] 12:09pm Does Patient have a DNR? No June 15, 2020 12:09pm Healthcare Proxy Yes Nov 2019 12:09pm Living Will Yes December 10:34am Chief Complaint and Reason for Visit Chief Complaint Rheumatoid Arthritis Anticoagulation HEARING EVAL (AID EVAL) Anticoagulation Anticoagulation [...] LYMPHOCYTOSIS anticoagulant D72.820,I10,R73.03,M81.0 Hypertension FALL stitch removal Reason for Visit Essential (primary) hypertension GERD (gastroesophageal reflux disease) Essential (primary) hypertension Laceration Diabetes mellitus type 2 in obese History of cervical spinal arthrodesis Essential (primary) hypertension History of CVA (cerebrovascular accident) Encounters Encounter Location(s) Ar rival/Admit Date Discharge/Depart Date Provider(s) Departed Physician/Provider Office Visit [facility] June 24, 2019 10:27am June 24, 2019 12:00pm Jose R Church DO Registered Outpatient [facility] June 26, 2019 3:00pm Jose R Church DO Registered Outpatient [facility] July 01, 2019 2:05pm Jose R Church DO Registered Outpatient [facility] July 04, 2019 9:36am Jose R Church DO Registered Outpatient [facility] July 10, 2019 8:20pm Jose R Church , Registered Outpatient [facility] July 19, 2019 6:42pm Jose R Church DO Registered Outpatient [facility] July 26, 2019 10:01am Jose R Church DO Registered Referred [facility] July 29, 2019 10:08am Jose R Church , DO Registered Outpatient [facility] August 01, 2019 9:25am Jose R Church DO Registered Outpatient [facility] August 01, 2019 1:53pm Jose R Church , Registered Outpatient [facility] August 07, 2019 4:22pm Jose R Church , Registered Outpatient [facility] August 15, 2019 4:08pm Jose R Church DO Registered Outpatient [facility] August 28, 2019 7:43am Jose R Church , Registered Outpatient [facility] September 04, 2019 8:48am Jose R Church , Registered Outpatient [facility] September 04, 2019 10:20am Jose R Church DO Registered Referred [facility] September 08, 2019 1:38pm CORY BAGLEY MD Registered Outpatient [facility] September 11, 2019 2:06pm Jose R Church DO Registered Outpatient [facility] September 18, 2019 3:58pm Jose R Church DO Registered Outpatient [facility] September 26, 2019 2:55pm Jose R Church DO Registered Outpatient [facility] October 02, 2019 11:52am Jose R Church DO Registered Outpatient [facility] October 02, 2019 4:24pm Jose R Church DO Registered Outpatient [facility] October 09, 2019 11:17am Jose R Church DO Registered Outpatient [facility] October 18, 2019 7:57am Jose R Church DO Departed Physician/Provider Office Visit [facility] October 21, 2019 12:32pm October 21, 2019 1:44pm Jose R Church DO Departed Emergency [facility]Emergency Room ER October 22, 2019 2:20pm October 22, 2019 5:56pm null Registered Outpatient [facility] October 23, 2019 7:47am Jose R Church DO Departed Physician/Provider Office Visit [facility] October 28, 2019 9:59am October 28, 2019 11:04am Jose R Church DO Registered Referred [facility]Cat Scan October 28, 2019 11:28am Jose R Church DO Registered Outpatient [facility] October 31, 2019 8:34am Jose R Church DO Registered Outpatient [facility] October 31, 2019 2:15pm Jose R Church DO Registered Outpatient [facility] Internal Medicine November 04, 2019 11:51am Master Muñoz MD Registered Outpatient [facility] November 06, 2019 7:53am Jose R Church DO Registered Referred [facility]EKG November 11, 2019 6:48am Ross Kaba Registered Outpatient [facility] November 21, 2019 9:47am Jose R Church DO Registered Referred [facility]-Lab Drop Off November 21, 2019 1:54pm Denisse Best MD Registered Referred [facility]Laboratory November 24, 2019 8:01am Jose R Church DO Departed Physician/Provider Office Visit [facility] November 25, 2019 8:36am November 25, 2019 10:01am Jose R Church DO Registered Outpatient [facility] November 27, 2019 7:20pm Jose R Church DO Registered Referred [facility] December 02, 2019 9:52am Jose R Church DO Registered Outpatient [facility] December 02, 2019 10:48am Jose R Church DO Registered Outpatient [facility] December 04, 2019 10:44am Jose R Church DO Registered Outpatient [facility] December 04, 2019 10:53am Jose R Church DO Registered Outpatient [facility] December 11, 2019 7:35pm Jose R Church DO Departed Physician/Provider Office Visit [facility] December 16, 2019 2:53pm December 16, 2019 4:56pm Jose R Church DO Registered Referred [facility] December 17, 2019 11:17am Jose R Church DO Registered Referred [facility] December 22, 2019 12:53pm Jose R Church DO Registered Referred [facility]-MRI/MRA December 31, 2019 2:17pm Yan Fermin DO Registered Outpatient [facility] January 02, 2020 9:36am Jose R Church DO Registered Outpatient [facility] January 08, 2020 8:58am Jose R Church DO Registered Outpatient [facility] January 15, 2020 8:27am Jose R Church DO Registered Outpatient [facility] January 22, 2020 3:59pm Jose R Church DO Registered Outpatient [facility] January 26, 2020 8:53am Jose R Church DO Registered Outpatient [facility] January 29, 2020 7:53am Jose R Church DO Registered Outpatient [facility] February 02, 2020 8:40am Jose R Church DO Registered Outpatient [facility] February 02, 2020 10:32am Jose R Church DO Registered Referred [facility] February 05, 2020 11:56am Jose R Church DO Registered Outpatient [facility] February 12, 2020 12:33pm Jose R Church DO Registered Outpatient [facility] February 19, 2020 7:37am Jose R Church DO Departed Physician/Provider Office Visit [facility] February 20, 2020 11:57am February 20, 2020 12:29pm Anum trevino Registered Outpatient [facility] February 26, 2020 5:20pm Jose R Church DO Registered Outpatient [facility] March 04, 2020 7:15am Jose R Church DO Registered Outpatient [facility] March 04, 2020 10:51am Jose R Church DO Departed Physician/Provider Office Visit [facility] March 08, 2020 9:12am March 08, 2020 10:34am Jose R Church DO Registered Outpatient [facility] March 11, 2020 7:22pm Jose R Church DO Registered Outpatient [facility] March 18, 2020 4:33pm Jose R Church DO Registered Outpatient [facility] March 25, 2020 1:21pm Jose R Church DO Registered Referred [facility] March 30, 2020 1:57pm Jose R Church DO Departed Physician/Provider Office Visit [facility] March 30, 2020 2:15pm March 30, 2020 3:31pm Anum carbajal Registered Outpatient [facility] April 01, 2020 7:14am Jose R Church DO Registered Outpatient [facility] April 06, 2020 12:00pm Jose R Church DO Registered Outpatient [facility] April 15, 2020 9:22am Jose R Church DO Registered Outpatient [facility] April 23, 2020 8:57am Jose R Church DO Departed Emergency [facility]Emer[facility] ER May 02, 2020 7:57am May 02, 2020 9:17am null Registered Outpatient [facility] May 04, 2020 7:17am Jose R Church DO Registered Outpatient [facility] May 04, 2020 2:13pm Jose R Church DO Registered Outpatient [facility] May 06, 2020 8:14am Jose R Church DO Registered Referred [facility] May 10, 2020 11:39am DAGOBERTO PARR MD Registered Outpatient [facility] May 13, 2020 2:50pm Jose R Church DO Registered Outpatient [facility] May 20, 2020 7:45pm Jose R Church DO Registered Outpatient [facility] May 27, 2020 7:39am Jose R Church DO Registered Outpatient [facility] May 27, 2020 8:29am Jose R Church DO Registered Outpatient [facility] June 03, 2020 11:35am Jose R Church DO Registered Outpatient [facility] June 11, 2020 8:51am Jose R Church DO Registered Referred [facility] June 11, 2020 11:26am Jose R Church DO Departed Physician/Provider Office Visit [facility] June 14, 2020 10:09am June 14, 2020 11:15am Jose R bethea DO Departed Emergency [facility]Emergency Room ER June 15, 2020 11:47am June 15, 2020 1:26pm null Registered Outpatient [facility] June 17, 2020 8:45pm Jose R Church DO Departed Physician/Provider Office Visit [facility] June 24, 2020 11:13am June 24, 2020 12:25pm Magy Howard NP Recent Diagnosis Onset Date Essential (primary) hypertension GERD (gastroesophageal reflux disease) Essential (primary) hypertension Laceration Diabetes mellitus type 2 in obese History of cervical spinal arthrodesis Essential (primary) hypertension History of CVA (cerebrovascular accident) Assessments Diagnosis Onset Date Res olution Status Essential (primary) hypertension chronic GERD (gastroesophageal reflux disease) chronic Essential (primary) hypertension chronic Laceration acute Diabetes mellitus type 2 in obese acute History of cervical spinal arthrodesis acute Essential (primary) hypertension chronic History of CVA (cerebrovascular accident) chronic Family History Relationship Condition A ge at [...] Event Date Not Given Reason Dose Number 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 Number Vaccine Information Statement (VIS) Deta il pneumococcal conjugate PCV 13 Decemb er 2013 zoster (shingles) vaccine, live, sc April 03, 2013 zoster (shingles) vaccine, live, sc December 11, 2017 influenza vaccine, inactivated Octob er 2018 [id number] influenza vaccine, inactivated Octob er 2011 influenza vaccine, inactivated Apre mber 2012 influenza vaccine, inactivated Octob er 2013 influenza vaccine, inactivated December 082017 influenza vaccine, inactivated Novem lila 2015 influenza vaccine, inactivated Octob er 2014 influenza vaccine, inactivated Apre mber 2015 influenza vaccine, inactivated Octob er 2016 influenza vaccine, inactivated Novem lila 2019 [id number] tuberculin skin test August 25, 2015 pneumococcal polysaccharide PPV23 vaccine November 28, 2017 tetanus, diphtheria, acell pertussis 7yrs &up April 03, 2013 Mental Status Observation Response Hardy e Recorded Impairments No impairments or barriers June 15, 2020 11:48am Medical Equipment No Medical Equipment Information available Insurance Providers Guarantor [place] Address [address] [place] [address] Contact Info. Home Phone: Payer Policy Id Coverage Id Subscriber's Name Subscriber Id Effective Date Expiration Date MEDICARE [employer] [id number] [place] [id number] FOR LIFE [id number] [place] [id number] MEDICARE [id number] [place] [id number] Self Pay Self N/A [facility] [id number] [place] [id number] [facility] [id number] [place] [id number] Plan of Treatment Advised patient she could have possibly fractured [...] daughter Zuri Mcmanus both on [place] at [place] [employer] to get her meds at [facility] and for Margoth solis to be [...] Finger Stick Glucose 114. Consult Ophtha lmology. RA. Consult Rheumatology. She is on Plaquenil so consult Optometry for dilated eye exam. Pre-DM. Keep candy to a minimum, also carbs. Hearing Deficit. Consult Audiology. Asplenia. She is confident she had vaccinations for PCV, Meningitis, Hib. Future Tests Future scheduled test information is unavailable Pending Tests Pending diagnostic test information is unavailable Future Visits Future appointment information is unavailable Referrals to Other Providers Reason for Referral Referral Start Date Provider Provider Conta ct Information Provider Address M54.2 - Cervicalgia,R51 - Headache,Z98.1 - Arthrodesis status,D68.61 - Antiphospholipid syndrome December 16, 2019 YAN FERMIN M06.9 - Rheumatoid arthritis, unspecified June 24, 2019 Homer Rodriguez [address] [address] Future Procedures Future procedure information is unavailable Future Medications Future medication information is unavailable Patient Instructions DASH Eating Plan (GEN) Hypertension (GEN) DASH Eating Plan (GEN) Hypertension (GEN) Social History Smoking Status Status Date of Observation Former smoker June 15, 2020 12 :09pm Observation Status Observation Response Hardy e of Response Smoking Status Former smoker June 15, 2020 12:09pm Assigned Sex Female Vital Signs Vital Reading Result Ref erence Range Collection Date/Time Height 58 [in_i] June 24, 2019 10:55am Weight 153.50 [lb_av] June 24, 2019 10:55am Body Temperature 97.9 [degF] 97.6-99.5 June 24, 2019 10:55am Heart Rate 52 /min 60-100 June 24, 2019 10:55am Respiratory rate 18 /min 12-24 June 24, 2019 10:55am Oxygen saturation by Pulse oximetry 96 % 95- 100 June 24, 2019 10:55am BP Systolic 148 mm[Hg] June 24, 2019 10:55am BP Diastolic 82 mm[Hg] June 24, 2019 10:55am BMI (Body Mass Index) 32.1 kg/m2 June 24, 2019 10:55am Height 58 [in_i] October 21, 2019 1:38pm [...] 22, 2019 6:48pm Respiratory rate 16 /min -October 22, 2019 6:48pm Oxygen saturation by Pulse [...] 25, 2019 9:40am Respiratory rate 158 /min 12-November 25, 2019 9:40am Oxygen saturation by Pulse [...] 20, 2020 12:58pm Respiratory rate 18 /min -February 20, 2020 12:58pm Oxygen saturation by Pulse [...] 02, 2020 9:18am Respiratory rate 16 /min -May 02, 2020 9:18am Oxygen saturation by Pulse [...] Index) 33.0 kg/m2 June 24, 2020 11:43am Hospital Discharge Instructions
--- OUTSIDE RECORDS SUMMARY | 2020-09-16 10:28 | CCD | Continuity of Care Document ---
Author Author Viridiana COTO DO Organization Unknown Address [address] [place] [address] Phone [phone] Care Team Providers Care Insole And Heel Stiffener Name Role Phone Jose R Church DrM [phone] Problems Active Problems Provider Date Cervical spondylosis [...] 81mg Tablets DR Unknown Deep Sea Nasal [place] 0.65% Solution Unknown Ferrous Gluconate 324(38Fe) mg Tablets Unknown Dexilant 60mg Capsules DR Unknown Gabapentin 100mg Capsules Unknown Lisinopril 10mg Tablets Unknown Restasis 0.05% Emulsion Jose R Church Dr Warfarin Sodium 4mg Tablets Jose R Church Dr Amoxicillin/Clavulanate Potassium 875-125mg Tablets Jose R Chucrh Dr Acetaminophen 325mg Tablets Unknown Butalbital/Acetaminophen/Caffeine 50-325-40mg Tablets Jose R Church Dr Xifaxan 550mg Tablets Jose R Church Dr Warfarin Sodium 3mg Tablets Jose R Church Dr Vitamin C 500mg Tablets Jose R Church Dr Potassium Citrate ER 5Meq (540 mg) Tablets ER Unknown Pantoprazole Sodium 40mg Tablets Jose R Lowry Dr Oyster Shell Calcium/D [id number] Tablets Jose R Church Dr Nadolol 20mg Tablets Unknown Multi-Vitamins Tablets Jose R Church Dr Magnesium Oxide 400(240Mg) mg Tablets Jose R Church Dr Lisinopril 20mg Tablets Jose R Church Dr Hydroxychloroquine Sulfate 200mg T ablets Jose R Church Dr Gabapentin 400mg Capsules Jose R Church Dr Fexofenadine HCL 180mg Tablets Unknown Duloxetine HCL 30mg Caps DR Nelson Unknown Docusate Sodium 100mg Capsules Jose R Church Dr History Medications Medrol 4mg TBPK dispense 1 pack use as directed 1unzoraida Coto DO 12/25/2019 - 12/25/2019 Medrol 4mg TBPK dispense 1 pack use as directed 1unzoraida Coto DO 12/25/2019 - 05/03/2020 Medications Administered in Office Medication SIG Qnty Indications Ordering Provider Date Injection Triamcinolone Acetonide Per 10 MG Injection Yan Coto DO 02/02/20 20 Immunizations Description No Information Available Vital Signs Date Vital Result Comment 05/31/2020 12:05pm Height 57 inches 4'9" Weight 160.00 lb BMI (Body Mass Index) 34.6 kg/m2 Respiratory Rate 16 /min Pain Level 4 04/23/2020 10:09am Height 57 inches 4'9" Weight 160.00 lb BMI (Body Mass Index) 34.6 kg/m2 Respiratory Rate 16 /min Pain Level 7 Results Description No Information Available Procedures Date Code Description Status 02/02/2020 15590 Injection For Nerve Block, Great er Occipital Nerve Completed Medical Devices Description No Information Available Encounters Type Date Location Provider Dx Diagnosis Office Visit 05/31/2020 12:45p Main Office Yan Coto, DO M54.81 Occipital neuralgia Office Visit 04/23/2020 10:15a Main Office Ronal Tucker [facility] M54.81 Occipital neuralgia M47.12 Other spondylosis with myelo janeth, cervical region M50.30 Other cervical disc degenera tion, unsp cervical region Office Visit 02/13/2020 2:00p Main Office Ronal Tucker [facility] M54.81 Occipital neuralgia Office Visit 01/16/2020 10:15a [place] Yan Coto DO M47.12 Other spondylosis with myelopathy, cervical region M50.30 Other cervical disc degenera tion, unsp cervical region Office Visit 12/25/2019 11:00a Main Office Yan Coto, DO M50.30 Other cervical disc degeneration, unsp cervical region M47.12 Other spondylosis with myelo janeth, cervical region Assessments Date Code Description Provider 05/31/2020 M54.81 Occipital neuralgia Ronal strong, [facility] 05/31/2020 M54.81 Occipital neuralgia Yan posadas, DO 04/23/2020 M54.81 Occipital neuralgia Mikael Gehr, MS, Pac 04/23/2020 M54.81 Occipital neuralgia Ronal strong, [facility] 04/23/2020 M47.12 Other spondylosis with myelopath y, cervical region Mikael Gehr, MS, Pac 04/23/2020 M47.12 Other spondylosis with myelopath y, cervical region Ronal Tucker [facility] 04/23/2020 M50.30 Other cervical disc degeneration , unspecified cervical region Mikael Gehr, MS, Pac 04/23/2020 M50.30 Other cervical disc degeneration , unspecified cervical region Ronal Tucker [facility] 02/13/2020 M54.81 Occipital neuralgia Ronal strong, [facility] 02/02/2020 M54.81 Occipital neuralgia Yan Karson da, DO 01/16/2020 M47.12 Other spondylosis with myelopath y, cervical region Yan Coto, DO 01/16/2020 M50.30 Other cervical disc degeneration , unspecified cervical region Yan Leeah, DO 12/25/2019 M50.30 Other cervical disc degeneration , unspecified cervical region Mikael Gehr, MS, Pac 12/25/2019 M50.30 Other cervical disc degeneration , unspecified cervical region Yan Chica, DO 12/25/2019 M47.12 Other spondylosis with myelopath y, cervical region Mikael Gehr, MS, Pac 12/25/2019 M47.12 Other spondylosis with myelopath y, cervical region Yan Chica, DO Plan of Treatment Future Appointment(s):* 06/21/2020 10:30 am - Yan Coto DO at Main Office * 07/19/2020 10:30 am - CARI Red at Main Office 05/31/2020 - Yan Coto DO* M54.81 Occipital neuralgia* New Orders:* Left occipital nerve block, Ordered: 05/31/20 * Comments:* 69-year-old female with history of occipital neuralgia had injection form the right side which gave her 90 per side% relief of her pain. He is having now the same symptoms on the left side. As she has done so well with the prior injection will proceed with a left occipital nerve block at this point time. 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 After discussion we together with the patient decided on a plan. I explained if any changes in neurological exam or progressive worsening of symptoms including but not limited to bowel and bladder they are to return sooner. Functional Status Description No Information Available Mental Status Description No Information Available Referrals Description No Information Available
--- OUTSIDE RECORDS SUMMARY | 2020-09-16 10:28 | CCD | Continuity of Care Document ---
Author Author Viridiana COTO DO Organization Unknown Address [address] [place] [address] Phone [phone] Care Team Providers Care Reservationist Name Role Phone Jose R Church DrM [phone] Problems Active Problems Provider Date Cervical spondylosis [...] 81mg Tablets DR Unknown Deep Sea Nasal [place] 0.65% Solution Unknown Ferrous Gluconate 324(38Fe) mg [...] Jose R [address] Dr Oyster Shell Calcium/D [id number] Tablets Jose R Church Dr Nadolol 20mg [...] Available Procedures Date Code Description Status 02/02/2020 89420 Injection For Nerve Block, Great er Occipital Nerve Completed Medical Devices Description No Information Available Encounters Type Date Location Provider Dx Diagnosis Office Visit 05/31/2020 12:45p Main Office Yan Coto, DO M54.81 Occipital neuralgia Office Visit 04/23/2020 10:15a Main Office Ronal Tucker [facility] M54.81 Occipital neuralgia M47.12 Other spondylosis with myelo janeth, cervical region M50.30 Other cervical disc degenera tion, unsp cervical region Office Visit 02/13/2020 2:00p Main Office Ronal Tucker [facility] M54.81 Occipital neuralgia Office Visit 01/16/2020 10:15a [place] Yan Coto, DO M47.12 Other spondylosis with myelopathy, cervical region M50.30 Other cervical disc degenera tion, unsp cervical region Office Visit 12/25/2019 11:00a Main Office Yan Coto DO M50.30 Other cervical disc degeneration, unsp cervical region M47.12 Other spondylosis with myelo janeth, cervical region Assessments Date Code Description Provider 06/21/2020 M54.81 Occipital neuralgia Yan Karson da, DO 05/31/2020 M54.81 Occipital neuralgia Ronal strong, [facility] 05/31/2020 M54.81 Occipital neuralgia Yan Karson da, DO 04/23/2020 M54.81 Occipital neuralgia Mikael Gehr, MS, Pac 04/23/2020 M54.81 Occipital neuralgia Ronal strong, [facility] 04/23/2020 M47.12 Other spondylosis with myelopath y, cervical region Mikael Gehr, MS, Pac 04/23/2020 M47.12 Other spondylosis with myelopath y, cervical region Ronal Tucker, [facility] 04/23/2020 M50.30 Other cervical disc degeneration , unspecified cervical region Mikael Gehr, MS, Pac 04/23/2020 M50.30 Other cervical disc degeneration , unspecified cervical region Ronal Tucker [facility] 02/13/2020 M54.81 Occipital neuralgia Ronal strong, [facility] 02/02/2020 M54.81 Occipital neuralgia Yan Qan dah, DO 01/16/2020 M47.12 Other spondylosis with myelopath y, cervical region Yan Coto, DO 01/16/2020 M50.30 Other cervical disc degeneration , unspecified cervical region Yan Coto, DO 12/25/2019 M50.30 Other cervical disc degeneration , unspecified cervical region Mikael Gehr, MS, Pac 12/25/2019 M50.30 Other cervical disc degeneration , unspecified cervical region Yan Coto, DO 12/25/2019 M47.12 Other spondylosis with myelopath y, cervical region Mikael Gehr, MS, Pac 12/25/2019 M47.12 Other spondylosis with myelopath y, cervical region Yan Coto DO Plan of Treatment Future Appointment(s):* 07/06/2020 10:00 am - Yan Coto DO at [facility] * 07/19/2020 10:30 am - [facility] Red at Main Office 06/21/2020 - Yan Coto DO* M54.81 Occipital neuralgia Functional Status Description No Information Available Mental Status Description No Information Available Referrals Description No Information Available
--- OUTSIDE RECORDS SUMMARY | 2020-09-16 10:31 | CCD ---
Author Author [facility] Organization [facility] Address Unknown Phone Unavailable Care Team Providers Care [facility] Sales Counselor Name Role Phone CORY BAGLEY Unavailable Unavailable DAGOBERTO PARR Unavailable Unavailable KERI OGDEN Unavailable Unavailable KERI OGDEN Unavailable Unavailable KERI OGDEN Unavailable Unavailable Apollo Valente MD Unavailable Unavailable Qandah, Basem Yan Aziz DO Unavailable Unavailab le Qandah, Basem Yan Aziz DO Unavailable Unavailab le Qandah, Basem Yan Aziz DO Unavailable Unavailab le Qandah, Basem Yan Aziz DO Unavailable Unavailab le Qandah, Basem Yan Aziz DO Unavailable Unavailab le Qandah, Basem Yan Aziz DO Unavailable Unavailab le Qandah, Basem Yan Aziz DO Unavailable Unavailab le Qandah, Basem Yan Aziz DO Unavailable Unavailab le Qandah, Basem Yan Aziz DO Unavailable Unavailab le Qandah, Basem Yan Aziz DO Unavailable Unavailab le Qandah, Basem Yan Aziz DO Unavailable Unavailab le Qandah, Basem Yan Aziz DO Unavailable Unavailab le Qandah, Basem Yan Aziz DO Unavailable Unavailab le Qandah, Basem Yan Aziz DO Unavailable Unavailab le Qandah, Basem Yan Aziz DO Unavailable Unavailab le Qandah, Basem Yan Aziz DO Unavailable Unavailab le Qandah, Basem Yan Aziz DO Unavailable Unavailab le Qandah, Basem Yan Aziz DO Unavailable Unavailab le Qandah, Basem Yan Aziz DO Unavailable Unavailab le Qandah, Basem Yan Aziz DO Unavailable Unavailab le Qandah, Basem Yan Aziz DO Unavailable Unavailab le Qandah, Basem Yan Aziz DO Unavailable Unavailab le Qandah, Basem Yan Aziz DO Unavailable Unavailab le Qandah, Basem Yan Aziz DO Unavailable Unavailab le Qandah, Basem Yan Aziz DO Unavailable Unavailab le Qandah, Basem Yan Aziz DO Unavailable Unavailab le Qandah, Basem Yan Aziz DO Unavailable Unavailab le Qandah, Basem Yan Aziz DO Unavailable Unavailab le Qandah, Basem Yan Aziz DO Unavailable Unavailab le Qandah, Basem Yan Aziz DO Unavailable Unavailab le Qandah, Basem Yan Aziz DO Unavailable Unavailab le Qandah, Basem Yan Aziz DO Unavailable Unavailab le Qandah, Basem Yan Aziz DO Unavailable Unavailab le Qandah, Basem Yan Aziz DO Unavailable Unavailab le Qandah, Basem Yan Aziz DO Unavailable Unavailab le Qandah, Basem Yan Aziz DO Unavailable Unavailab le Qandah, Basem Yan Aziz DO Unavailable Unavailab le Qandah, Basem Yan Aziz DO Unavailable Unavailab le Qandah, Basem Yan Aziz DO Unavailable Unavailab le Qandah, Basem Yan Aziz DO Unavailable Unavailab le Qandah, Basem Yan Aziz DO Unavailable Unavailab le Qandah, Basem Yan Aziz DO Unavailable Unavailab le Qandah, Basem Yan Aziz DO Unavailable Unavailab le Qandah, Basem Yan Aziz DO Unavailable Unavailab le Qandah, Basem Yan Aziz DO Unavailable Unavailab le Qandah, Basem Yan Aziz DO Unavailable Unavailab le Qandah, Basem Yan Aziz DO Unavailable Unavailab le Qandah, Basem Yan Aziz DO Unavailable Unavailab le Qandah, Basem Yan Aziz DO Unavailable Unavailab le Qandah, Basem Yan Aziz DO Unavailable Unavailab le Qandah, Basem Yan Aziz DO Unavailable Unavailab le Qandah, Basem Yan Aziz DO Unavailable Unavailab le Qandah, Basem Yan Aziz DO Unavailable Unavailab le Qandah, Basem Yan Aziz DO Unavailable Unavailab le Qandah, Basem Yan Aziz DO Unavailable Unavailab le Qandah, Basem Yan Aziz DO Unavailable Unavailab le Qandah, Basem Yan Aziz DO Unavailable Unavailab le Qandah, Basem Yan Aziz DO Unavailable Unavailab le Qandah, Basem Yan Aziz DO Unavailable Unavailab le Qandah, Basem Yan Aziz DO Unavailable Unavailab le Qandah, Basem Yan Aziz DO Unavailable Unavailab le Qandah, Basem Yan Aziz DO Unavailable Unavailab le Qandah, Basem Yan Aziz DO Unavailable Unavailab le Qandah, Basem Yan Aziz DO Unavailable Unavailab le Qandah, Basem Yan Aziz DO Unavailable Unavailab le Qandah, Basem Yan Aziz DO Unavailable Unavailab le Qandah, Basem Yan Aziz DO Unavailable Unavailab le Qandah, Basem Yan Aziz DO Unavailable Unavailab le Qandah, Basem Yan Aziz DO Unavailable Unavailab le KOPIAyde NORIEGA SENIOR STAFF SPECIALIZED EMPLOYMENT-CHAIN MORTISER OPERATOR-C Unavailable Unava ilable KOPIDLAyde KAYE SENIOR STAFF SPECIALIZED EMPLOYMENT-CHAIN MORTISER OPERATOR-C Unavailable Unava ilable KOPIAyde NORIEGA APRN-CHAIN MORTISER OPERATOR-C Unavailable Unava ilable KOAyde JOSE SENIOR STAFF SPECIALIZED EMPLOYMENT-CHAIN MORTISER OPERATOR-C Unavailable Unava ilable KOAyde JOSE APRN-CHAIN MORTISER OPERATOR-C Unavailable Unava ilable Ayde HOWARD APRN-CHAIN MORTISER OPERATOR-C Unavailable Unava ilable KOAyde JOSE SENIOR STAFF SPECIALIZED EMPLOYMENT-CHAIN MORTISER OPERATOR-C Unavailable Unava ilable KOPIDLANSKY, Ayde LOVELL SENIOR STAFF SPECIALIZED EMPLOYMENT-CHAIN MORTISER OPERATOR-C Unavailable Unava ilable KOPIDLANSKY, Ayde LOVELL SENIOR STAFF SPECIALIZED EMPLOYMENT-CHAIN MORTISER OPERATOR-C Unavailable Unava ilable KOPIDLANSKY, Ayde LOVELL SENIOR STAFF SPECIALIZED EMPLOYMENT-CHAIN MORTISER OPERATOR-C Unavailable Unava ilable KOPIDLANSKY, Ayde LOVELL SENIOR STAFF SPECIALIZED EMPLOYMENT-CHAIN MORTISER OPERATOR-C Unavailable Unava ilable KOPIDLANSKY, Ayde LOVELL SENIOR STAFF SPECIALIZED EMPLOYMENT-CHAIN MORTISER OPERATOR-C Unavailable Unava ilable KOPIDLANSKY, Ayde LOVELL SENIOR STAFF SPECIALIZED EMPLOYMENT-CHAIN MORTISER OPERATOR-C Unavailable Unava ilable KOPIDLANSKY, Ayde LOVELL SENIOR STAFF SPECIALIZED EMPLOYMENT-CHAIN MORTISER OPERATOR-C Unavailable Unava ilable KOPIDLANSKY, Ayde LOVELL SENIOR STAFF SPECIALIZED EMPLOYMENT-CHAIN MORTISER OPERATOR-C Unavailable Unava ilable KOPIDLANSKY, Ayde LOVELL SENIOR STAFF SPECIALIZED EMPLOYMENT-CHAIN MORTISER OPERATOR-C Unavailable Unava ilable KOPIDLANSKY, Ayde LOVELL SENIOR STAFF SPECIALIZED EMPLOYMENT-CHAIN MORTISER OPERATOR-C Unavailable Unava ilable KOPIDLANSKY, Ayde LOVELL SENIOR STAFF SPECIALIZED EMPLOYMENT-CHAIN MORTISER OPERATOR-C Unavailable Unava ilable KOPIDLANSKY, Ayde LOVELL SENIOR STAFF SPECIALIZED EMPLOYMENT-CHAIN MORTISER OPERATOR-C Unavailable Unava ilable KOPIDLANSKY, Ayde LOVELL SENIOR STAFF SPECIALIZED EMPLOYMENT-CHAIN MORTISER OPERATOR-C Unavailable Unava ilable KOPIDLANSKY, Ayde LOVELL SENIOR STAFF SPECIALIZED EMPLOYMENT-CHAIN MORTISER OPERATOR-C Unavailable Unava ilable KOPIDLANSKY, Ayde LOVELL SENIOR STAFF SPECIALIZED EMPLOYMENT-CHAIN MORTISER OPERATOR-C Unavailable Unava ilable KOPIDLANSKY, Ayde LOVELL SENIOR STAFF SPECIALIZED EMPLOYMENT-CHAIN MORTISER OPERATOR-C Unavailable Unava ilable Antonietta Meraz Unavailable Unavailable CORY BAGLEY Unavailable Unavailable Leigh Ann REDDY DO Unavailable [phone] Leigh Ann REDDY DO Unavailable [phone] Leigh Ann REDDY DO Unavailable [phone] Leigh Ann REDDY DO Unavailable [phone] Leigh Ann REDDY DO Unavailable [phone] Leigh Ann REDDY DO Unavailable [phone] Leigh Ann REDDY DO Unavailable [phone] VESTA, A. LINDSAY DO Unavailable [phone] Leigh Ann REDDY LINDSAY DO Unavailable [phone] VESTALeigh Ann LINDSAY DO Unavailable [phone] Leigh Ann REDDY LINDSAY DO Unavailable [phone] Leigh Ann REDDY LINDSAY DO Unavailable [phone] VESTA, Leigh Ann LINDSAY DO Unavailable [phone] VESTA Leigh Ann LINDSAY DO Unavailable [phone] Leigh Ann REDDY LINDSAY DO Unavailable [phone] VESTA Leigh Ann LINDSAY DO Unavailable [phone] VESTA Leigh Ann LINDSAY DO Unavailable [phone] Leigh Ann REDDY LINDSAY DO Unavailable [phone] VESTA, Leigh Ann LINDSAY DO Unavailable [phone] VESTA, Leigh Ann LINDSAY DO Unavailable [phone] Leigh Ann REDDY LINDSAY DO Unavailable [phone] Hamo, M Delia JEWEL LATHE OPERATOR Unavailable Unavailable Hamo, M Delia JEWEL LATHE OPERATOR Unavailable Unavailable Hamo, M Delia JEWEL LATHE OPERATOR Unavailable Unavailable Hamo, M Delia JEWEL LATHE OPERATOR Unavailable Unavailable Hamo, M Delia JEWEL LATHE OPERATOR Unavailable Unavailable Hamo, M Delia JEWEL LATHE OPERATOR Unavailable Unavailable Hamo, M Delia JEWEL LATHE OPERATOR Unavailable Unavailable Hamo, M Delia JEWEL LATHE OPERATOR Unavailable Unavailable Hamo, M Delia JEWEL LATHE OPERATOR Unavailable Unavailable Hamo, M Delia JEWEL LATHE OPERATOR Unavailable Unavailable Hamo, M Delia JEWEL LATHE OPERATOR Unavailable Unavailable Hamo, M Delia JEWEL LATHE OPERATOR Unavailable Unavailable Hamo, M Delia JEWEL LATHE OPERATOR Unavailable Unavailable Hamo, M Delia JEWEL LATHE OPERATOR Unavailable Unavailable Hamo, M Delia JEWEL LATHE OPERATOR Unavailable Unavailable Hamo, M Delia JEWEL LATHE OPERATOR Unavailable Unavailable Hamo, M Delia JEWEL LATHE OPERATOR Unavailable Unavailable Hamo, M Delia JEWEL LATHE OPERATOR Unavailable Unavailable Hamo, M Delia JEWEL LATHE OPERATOR Unavailable Unavailable Hamo, M Delia JEWEL LATHE OPERATOR Unavailable Unavailable Hamo, M Delia JEWEL LATHE OPERATOR Unavailable Unavailable DiBellaKaleigh MD Unavailable Unavailable DiBella, Kaleigh Bustillos MD Unavailable Unavailable DiBella, Kaleigh Bustillos MD Unavailable Unavailable DiBella, Kaleigh Bustillos MD Unavailable Unavailable DiBella, Kaleigh Bustillos MD Unavailable Unavailable DiBella, Kaleigh Bustillos MD Unavailable Unavailable Draper Gerber, Lloyd Morales MD, FACS Unavailable Unavailable Draper Gerber, Lloyd Morales MD, FACS Unavailable Unavailable Draper Gerber, Lloyd Morales MD, FACS Unavailable Unavailable Draper Gerber, Lloyd Morales MD, FACS Unavailable Unavailable Draper Gerber, Lloyd Morales MD, FACS Unavailable Unavailable Draper Gerber, Lloyd Morales MD, FACS Unavailable Unavailable Draper Gerber, Lloyd Morales MD, FACS Unavailable Unavailable Draper Gerber, Lloyd Morales MD, FACS Unavailable Unavailable Draper Gerber, Lloyd Morales MD, FACS Unavailable Unavailable Draper Gerber, Lloyd Morales MD, FACS Unavailable Unavailable Draper Gerber, Lloyd Morales MD, FACS Unavailable Unavailable Draper Gerber, Lloyd Morales MD, FACS Unavailable Unavailable Draper Gerber, Lloyd Morales MD, FACS Unavailable Unavailable Draper Gerber, Lloyd Morales MD, FACS Unavailable Unavailable Draper Gerber, Lloyd Morales MD, FACS Unavailable Unavailable Draper Gerber, Lloyd Morales MD, FACS Unavailable Unavailable Draper Gerber, Lloyd Morales MD, FACS Unavailable Unavailable Draper Gerber, Lloyd Morales MD, FACS Unavailable Unavailable Draper Gerber, Lloyd Morales MD, FACS Unavailable Unavailable Draper Gerber, Lloyd Morales MD, FACS Unavailable Unavailable Draper Gerber, Lloyd Morlaes MD, FACS Unavailable Unavailable Draper Gerber, Lloyd Morales MD, FACS Unavailable Unavailable Draper Gerber, Lloyd Morales MD, FACS Unavailable Unavailable Draper Gerber, Lloyd Morales MD, FACS Unavailable Unavailable Draper Gerber, Lloyd Morales MD, FACS Unavailable Unavailable Draper Gerber, Lloyd Morales MD, FACS Unavailable Unavailable Draper Gerber, Lloyd Morales MD, FACS Unavailable Unavailable Draper Gerber, Lloyd Morales MD, FACS Unavailable Unavailable Draper Gerber, Lloyd Morales MD, FACS Unavailable Unavailable Draper Gerber, Lloyd Morales MD, FACS Unavailable Unavailable Draper Gerber, Lloyd Morales MD, FACS Unavailable Unavailable Draper Gerber, Lloyd Morales MD, FACS Unavailable Unavailable Draper Gerber, Lloyd Morales MD, FACS Unavailable Unavailable Draper Gerber, Lloyd Morales MD, FACS Unavailable Unavailable EVE, CASH CHERRY Unavailable Unavailable EVE, CASH CHERRY Unavailable Unavailable EVE, CASH CHERRY Unavailable Unavailable EVE, CASH CHERRY Unavailable Unavailable EVE, CASH CHERRY Unavailable Unavailable EVE, CASH CHERRY Unavailable Unavailable EVE, CASH CHERRY Unavailable Unavailable EVE, CASH CHERRY Unavailable Unavailable EVE, CASH CHERRY Unavailable Unavailable EVE, CASH CHERRY Unavailable Unavailable EVE, CASH CHERRY Unavailable Unavailable EVE, CASH CHERRY Unavailable Unavailable EVE, CASH CHERRY Unavailable Unavailable EVE, CASH CHERRY Unavailable Unavailable EVE, CASH CHERRY Unavailable Unavailable EVE, CASH CHERRY Unavailable Unavailable EVE, CASH CHERRY Unavailable Unavailable EVE, CASH CHERRY Unavailable Unavailable EVE, CASH CHERRY Unavailable Unavailable EVE, CASH MD Unavailable Unavailable EVE, CASH MD Unavailable Unavailable EVE, CASH MD Unavailable Unavailable EVE, CASH MD Unavailable Unavailable EVE, CASH MD Unavailable Unavailable EVE, CASH MD Unavailable Unavailable EVE, CASH MD Unavailable Unavailable EVE, CASH MD Unavailable Unavailable EVE, CASH MD Unavailable Unavailable EVE, CASH MD Unavailable Unavailable EVE, CASH MD Unavailable Unavailable EVE, CASH MD Unavailable Unavailable EVE, CASH MD Unavailable Unavailable EVE, CASH MD Unavailable Unavailable EVE, CASH MD Unavailable Unavailable EVE, CASH MD Unavailable Unavailable EVE, CASH MD Unavailable Unavailable EVE, CASH MD Unavailable Unavailable EVE, CASH MD Unavailable Unavailable EVE, CASH MD Unavailable Unavailable EVE, CASH MD Unavailable Unavailable EVE, CASH MD Unavailable Unavailable EVE, CASH MD Unavailable Unavailable EVE, CASH MD Unavailable Unavailable EVE, CASH MD Unavailable Unavailable EVE, CASH MD Unavailable Unavailable EVE, CASH MD Unavailable Unavailable EVE, CASH MD Unavailable Unavailable EVE, CASH MD Unavailable Unavailable EVE, CASH MD Unavailable Unavailable EVE, CASH MD Unavailable Unavailable EVE, CASH MD Unavailable Unavailable EVE, CASH MD Unavailable Unavailable EVE, CASH MD Unavailable Unavailable EVE, CASH MD Unavailable Unavailable EVE, CASH MD Unavailable Unavailable EVE, CASH MD Unavailable Unavailable EVE, CASH MD Unavailable Unavailable EVE, CASH MD Unavailable Unavailable EVE, CASH MD Unavailable Unavailable EVE, CASH MD Unavailable Unavailable EVE, CASH MD Unavailable Unavailable EVE, CASH MD Unavailable Unavailable EVE, CASH MD Unavailable Unavailable EVE, CASH MD Unavailable Unavailable EVE, CASH MD Unavailable Unavailable EVE, CASH MD Unavailable Unavailable EVE, CASH MD Unavailable Unavailable EVE, CASH MD Unavailable Unavailable EVE, CASH MD Unavailable Unavailable EVE, CASH MD Unavailable Unavailable EVE, CASH MD Unavailable Unavailable EVE, CASH MD Unavailable Unavailable EVE, CASH MD Unavailable Unavailable EVE, CASH MD Unavailable Unavailable EVE, CASH MD Unavailable Unavailable EVE, CASH MD Unavailable Unavailable EVE, CASH MD Unavailable Unavailable EVE, CASH MD Unavailable Unavailable EVE, CASH MD Unavailable Unavailable EVE, CASH MD Unavailable Unavailable Kaleigh Church DO Unavailable Unavailable Kaleigh Church DO Unavailable Unavailable Ranjit, P Keri DO Unavailable Unavailable Ranjit, P Keri DO Unavailable Unavailable Ranjit, P Keri DO Unavailable Unavailable Ranjit, P Keri DO Unavailable Unavailable Ranjit, P Keri DO Unavailable Unavailable Ranjit, P Keri DO Unavailable Unavailable Ranjit, P Keri DO Unavailable Unavailable Ranjit, P Keri DO Unavailable Unavailable Ranjit, P Keri DO Unavailable Unavailable Ranjit, P Keri DO Unavailable Unavailable Ranjit, P Keri DO Unavailable Unavailable Ranjit, P Keri DO Unavailable Unavailable Ranjit, P Keri DO Unavailable Unavailable Ranjit, P Keri DO Unavailable Unavailable Ranjit, P Keri DO Unavailable Unavailable Ranjit, P Keri DO Unavailable Unavailable Ranjit, P Keri DO Unavailable Unavailable Ranjit, P Keri DO Unavailable Unavailable Ranjit, P Keri DO Unavailable Unavailable Ranjit, P Keri DO Unavailable Unavailable Ranjit, P Keri DO Unavailable Unavailable Ranjit, P Keri DO Unavailable Unavailable Ranjit, P Keri DO Unavailable Unavailable Ranjit, P Keri DO Unavailable Unavailable Ranjit, P Keri DO Unavailable Unavailable Ranjit, P Keri DO Unavailable Unavailable Ranjit, P Keri DO Unavailable Unavailable Ranjit, P Keri DO Unavailable Unavailable Ranjit, P Keri DO Unavailable Unavailable Ranjit, P Keri DO Unavailable Unavailable Ranjit, P Keri DO Unavailable Unavailable Rnajit, P Keri DO Unavailable Unavailable Ranjit, P Keri DO Unavailable Unavailable Ranjit, P Keri DO Unavailable Unavailable Ranjit, P Keri DO Unavailable Unavailable Ranjit, P Keri DO Unavailable Unavailable Ranjit, P Keri DO Unavailable Unavailable Ranjit, P Keri DO Unavailable Unavailable Ranjit, P Keri DO Unavailable Unavailable Ranjit, P Keri DO Unavailable Unavailable Ranjit, P Keri DO Unavailable Unavailable Ranjit, P Keri DO Unavailable Unavailable Ranjit, P Keri DO Unavailable Unavailable Ranjit, P Keri DO Unavailable Unavailable Ranjit, P Keri DO Unavailable Unavailable Ranjit, P Keri DO Unavailable Unavailable Ranjit, P Keri DO Unavailable Unavailable Ranjit, P Keri DO Unavailable Unavailable Ranjit, P Keri DO Unavailable Unavailable Ranjit, P Keri DO Unavailable Unavailable Ranjit, P Keri DO Unavailable Unavailable Ranjit, P Keri DO Unavailable Unavailable Ranjit, P Keri DO Unavailable Unavailable Ranjit, P Keri DO Unavailable Unavailable Ranjit, P Keri DO Unavailable Unavailable Ranjit, P Keri DO Unavailable Unavailable Ranjit, P Keri DO Unavailable Unavailable Ranjit, P Keri DO Unavailable Unavailable Ranjit, P Keri DO Unavailable Unavailable Ranjit, P Keri DO Unavailable Unavailable Ranjit, P Keri DO Unavailable Unavailable Ranjit, P Keri DO Unavailable Unavailable Ranjit, P Keri DO Unavailable Unavailable Ranjit, P Keri DO Unavailable Unavailable Kaleigh Church DO Unavailable Unavailable Kaleigh Church DO Unavailable Unavailable Bender, L Anum JEWEL LATHE OPERATOR Unavailable Unavailable Bender, L Anum JEWEL LATHE OPERATOR Unavailable Unavailable Bender, L Anum JEWEL LATHE OPERATOR Unavailable Unavailable Bender, L Anum JEWEL LATHE OPERATOR Unavailable Unavailable Bender, L Anum JEWEL LATHE OPERATOR Unavailable Unavailable Bender, L Anum JEWEL LATHE OPERATOR Unavailable Unavailable Bender, L Anum JEWEL LATHE OPERATOR Unavailable Unavailable Bender, L Anum JEWEL LATHE OPERATOR Unavailable Unavailable Bender, L Anum JEWEL LATHE OPERATOR Unavailable Unavailable Bender, L Anum JEWEL LATHE OPERATOR Unavailable Unavailable Bender, L Anum JEWEL LATHE OPERATOR Unavailable Unavailable Bender, L Anum JEWEL LATHE OPERATOR Unavailable Unavailable Bender, L Anum JEWEL LATHE OPERATOR Unavailable Unavailable Bender, L Anum JEWEL LATHE OPERATOR Unavailable Unavailable Bender, L Anum JEWEL LATHE OPERATOR Unavailable Unavailable Bender, L Anum JEWEL LATHE OPERATOR Unavailable Unavailable Bender, L Anum JEWEL LATHE OPERATOR Unavailable Unavailable Bender, L Anum JEWEL LATHE OPERATOR Unavailable Unavailable Bender, L Anum JEWEL LATHE OPERATOR Unavailable Unavailable Bender, L Anum JEWEL LATHE OPERATOR Unavailable Unavailable Bender, L Anum JEWEL LATHE OPERATOR Unavailable Unavailable Bender, L Anum JEWEL LATHE OPERATOR Unavailable Unavailable Bender, L Anum JEWEL LATHE OPERATOR Unavailable Unavailable Bender, L Anum JEWEL LATHE OPERATOR Unavailable Unavailable Bender, L Anum JEWEL LATHE OPERATOR Unavailable Unavailable Bender, L Anum JEWEL LATHE OPERATOR Unavailable Unavailable Bender, L Anum JEWEL LATHE OPERATOR Unavailable Unavailable Bender, L Anum JEWEL LATHE OPERATOR Unavailable Unavailable Bender, L Anum JEWEL LATHE OPERATOR Unavailable Unavailable Bender, L Anum JEWEL LATHE OPERATOR Unavailable Unavailable Bender, L Anum JEWEL LATHE OPERATOR Unavailable Unavailable Bender, L Anum JEWEL LATHE OPERATOR Unavailable Unavailable Bender, L Anum JEWEL LATHE OPERATOR Unavailable Unavailable Bender, L Anum JEWEL LATHE OPERATOR Unavailable Unavailable Bender, L Anum JEWEL LATHE OPERATOR Unavailable Unavailable Bender, L Anum JEWEL LATHE OPERATOR Unavailable Unavailable Bender, L Anum JEWEL LATHE OPERATOR Unavailable Unavailable Bender, L Anum JEWEL LATHE OPERATOR Unavailable Unavailable Bender, L Anum JEWEL LATHE OPERATOR Unavailable Unavailable Bender, L Anum JEWEL LATHE OPERATOR Unavailable Unavailable Bender, L Anum JEWEL LATHE OPERATOR Unavailable Unavailable Bender, L Anum JEWEL LATHE OPERATOR Unavailable Unavailable Bender, L Anum JEWEL LATHE OPERATOR Unavailable Unavailable Bender, L Anum JEWEL LATHE OPERATOR Unavailable Unavailable Qandah, Basem Yan Aziz DO Unavailable Unavailab le Qandah, Basem Yan Aziz DO Unavailable Unavailab le Qandah, Basem Yan Aziz DO Unavailable Unavailab le Qandah, Basem Yan Aziz DO Unavailable Unavailab le Qandah, Basem Yan Aziz DO Unavailable Unavailab le Qandah, Basem Yan Aziz DO Unavailable Unavailab le Qandah, Basem Yan Aziz DO Unavailable Unavailab le Qandah, Basem Yan Aziz DO Unavailable Unavailab le Qandah, Basem Yan Aziz DO Unavailable Unavailab le Qandah, Basem Yan Aziz DO Unavailable Unavailab le Qandah, Basem Yan Aziz DO Unavailable Unavailab le Qandah, Basem Yan Aziz DO Unavailable Unavailab le Qandah, Basem Yan Aziz DO Unavailable Unavailab le Qandah, Basem Yan Aziz DO Unavailable Unavailab le Qandah, Basem Yan Aziz DO Unavailable Unavailab le Qandah, Basem Yan Aziz DO Unavailable Unavailab le Qandah, Basem Yan Aziz DO Unavailable Unavailab le Qandah, Basem Yan Aziz DO Unavailable Unavailab le Qandah, Basem Yan Aziz DO Unavailable Unavailab le Qandah, Basem Yan Aziz DO Unavailable Unavailab le Qandah, Basem Yan Aziz DO Unavailable Unavailab le Qandah, Basem Yan Aziz DO Unavailable Unavailab le Qandah, Basem Yan Aziz DO Unavailable Unavailab le Qandah, Basem Yan Aziz DO Unavailable Unavailab le Qandah, Basem Yan Aziz DO Unavailable Unavailab le Qandah, Basem Yan Aziz DO Unavailable Unavailab le Qandah, Basem Yan Aziz DO Unavailable Unavailab le Qandah, Basem Yan Aziz DO Unavailable Unavailab le Qandah, Basem Yan Aziz DO Unavailable Unavailab le Qandah, Basem Yan Aziz DO Unavailable Unavailab le Qandah, Basem Yan Aziz DO Unavailable Unavailab le Qandah, Basem Yan Aziz DO Unavailable Unavailab le Qandah, Basem Yan Aziz DO Unavailable Unavailab le Qandah, Basem Yan Aziz DO Unavailable Unavailab le Qandah, Basem Yan Aziz DO Unavailable Unavailab le Qandah, Basem Yan Aziz DO Unavailable Unavailab le Qandah, Basem Yan Aziz DO Unavailable Unavailab le Qandah, Basem Yan Aziz DO Unavailable Unavailab le Qandah, Basem Yan Aziz DO Unavailable Unavailab le Qandah, Basem Yan Aziz DO Unavailable Unavailab le Qandah, Basem Yan Aziz DO Unavailable Unavailab le Qandah, Basem Yan Aziz DO Unavailable Unavailab le Qandah, Basem Yan Aziz DO Unavailable Unavailab le Qandah, Basem Yan Aziz DO Unavailable Unavailab le Qandah, Basem Yan Aziz DO Unavailable Unavailab le Qandah, Basem Yan Aziz DO Unavailable Unavailab le Qandah, Basem Yan Aziz DO Unavailable Unavailab le Qandah, Basem Yan Aziz DO Unavailable Unavailab le Qandah, Basem Yan Aziz DO Unavailable Unavailab le Qandah, Basem Yan Aziz DO Unavailable Unavailab le Qandah, Basem Yan Aziz DO Unavailable Unavailab le Qandah, Basem Yan Aziz DO Unavailable Unavailab le Qandah, Basem Yan Aziz DO Unavailable Unavailab le Qandah, Basem Yan Aziz DO Unavailable Unavailab le Qandah, Basem Yan Aziz DO Unavailable Unavailab le Qandah, Basem Yan Aziz DO Unavailable Unavailab le Qandah, Basem Yan Aziz DO Unavailable Unavailab le Qandah, Basem Yan Aziz DO Unavailable Unavailab le Qandah, Basem Yan Aziz DO Unavailable Unavailab le Qandah, Basem Yan Aziz DO Unavailable Unavailab le Qandah, Basem Yan Aziz DO Unavailable Unavailab le Qandah, Basem Yan Aziz DO Unavailable Unavailab le Qandah, Basem Yan Aziz DO Unavailable Unavailab le Qandah, Basem Yan Aziz DO Unavailable Unavailab le Qandah, Basem Yan Aziz DO Unavailable Unavailab le Qandah, Basem Yan Aziz DO Unavailable Unavailab le Qandah, Basem Yan Aziz DO Unavailable Unavailab le Qandah, Marc Helm DO Unavailable Unavailab le Qandah, Marc Helm DO Unavailable Unavailab le LOVE, A ROSS MD Unavailable Unavailable LOVE, A ROSS MD Unavailable Unavailable LOVE, A ROSS MD Unavailable Unavailable LOVE, A ROSS MD Unavailable Unavailable LOVE, A ROSS MD Unavailable Unavailable LOVE, A ROSS MD Unavailable Unavailable LOVE, A ROSS MD Unavailable Unavailable LOVE, A ROSS MD Unavailable Unavailable LOVE, A ROSS MD Unavailable Unavailable LOVE, A ROSS MD Unavailable Unavailable LOVE, A ROSS MD Unavailable Unavailable LOVE, A ROSS MD Unavailable Unavailable LOVE, A ROSS MD Unavailable Unavailable LOVE, A ROSS MD Unavailable Unavailable LOVE, A ROSS MD Unavailable Unavailable LOVE, A ROSS MD Unavailable Unavailable LOVE, A ROSS MD Unavailable Unavailable LOVE, A ROSS MD Unavailable Unavailable LOVE, A ROSS MD Unavailable Unavailable LOVE, A ROSS MD Unavailable Unavailable LOVE, A ROSS MD Unavailable Unavailable LOVE, A ROSS MD Unavailable Unavailable LOVE, A ROSS MD Unavailable Unavailable LOVE, A ROSS MD Unavailable Unavailable LOVE, A ROSS MD Unavailable Unavailable LOVE, A ROSS MD Unavailable Unavailable LOVE, A ROSS MD Unavailable Unavailable LOVE, A ROSS MD Unavailable Unavailable LOVE, A ROSS MD Unavailable Unavailable LOVE, A ROSS MD Unavailable Unavailable LOVE, A ROSS MD Unavailable Unavailable LOVE, A ROSS MD Unavailable Unavailable LOVE, A ROSS MD Unavailable Unavailable LOVE, A ROSS MD Unavailable Unavailable LOVE, A ROSS MD Unavailable Unavailable LOVE, A ROSS MD Unavailable Unavailable LOVE, A ROSS MD Unavailable Unavailable LOVE, A ROSS MD Unavailable Unavailable LOVE, A ROSS MD Unavailable Unavailable LOVE, A ROSS MD Unavailable Unavailable LOVE, A ROSS MD Unavailable Unavailable LOVE, A ROSS MD Unavailable Unavailable LOVE, A ROSS MD Unavailable Unavailable LOVE, A ROSS MD Unavailable Unavailable LOVE, A ROSS MD Unavailable Unavailable LOVE, A ROSS MD Unavailable Unavailable LOVE, A ROSS MD Unavailable Unavailable LOVE, A ROSS MD Unavailable Unavailable LOVE, A ROSS MD Unavailable Unavailable LOVE, A ROSS MD Unavailable Unavailable LOVE, A ROSS MD Unavailable Unavailable LOVE, A ROSS MD Unavailable Unavailable LOVE, A ROSS MD Unavailable Unavailable LOVE, A ROSS MD Unavailable Unavailable LOVE, A ROSS MD Unavailable Unavailable LOVE, A ROSS MD Unavailable Unavailable LOVE, A ROSS MD Unavailable Unavailable LOVE, A ROSS MD Unavailable Unavailable LOVE, A ROSS MD Unavailable Unavailable LOVE, A ROSS MD Unavailable Unavailable LOVE, A ROSS MD Unavailable Unavailable Webber, N Zuri PA-C Unavailable Unavailable Webber, N Zuri PA-C Unavailable Unavailable Webber, N Zuri PA-C Unavailable Unavailable Webber, N Zuri PA-C Unavailable Unavailable Webber, N Zuri PA-C Unavailable Unavailable Webber, N Zuri PA-C Unavailable Unavailable Carangelo, Ronal PA Unavailable Unavailable Carangelo, Ronal PA Unavailable Unavailable Carangelo, Ronal PA Unavailable Unavailable Carangelo, Ronal PA Unavailable Unavailable Carangelo, Ronal PA Unavailable Unavailable Carangelo, Ronal PA Unavailable Unavailable Carangelo, Ronal PA Unavailable Unavailable Carangelo, Ronal PA Unavailable Unavailable Carangelo, Ronal PA Unavailable Unavailable Carangelo, Ronal PA Unavailable Unavailable Carangelo, Ronal PA Unavailable Unavailable Carangelo, Ronal PA Unavailable Unavailable Carangelo, Ronal PA Unavailable Unavailable Carangelo, Ronal PA Unavailable Unavailable Carangelo, Ronal PA Unavailable Unavailable Carangelo, Ronal PA Unavailable Unavailable Carangelo, Ronal PA Unavailable Unavailable Carangelo, Ronal PA Unavailable Unavailable Carangelo, Ronal PA Unavailable Unavailable Carangelo, Ronal PA Unavailable Unavailable Carangelo, Ronal PA Unavailable Unavailable Carangelo, Ronal PA Unavailable Unavailable Carangelo, Ronal PA Unavailable Unavailable Carangelo, Ronal PA Unavailable Unavailable Carangelo, Ronal PA Unavailable Unavailable Carangelo, Ronal PA Unavailable Unavailable Carangelo, Ronal PA Unavailable Unavailable Re-disclosure Warning The records that you are about to access may contain information from federally-assisted alcohol or drug abuse programs. If such information is present, then the following federally mandated warning applies: This information has been disclosed to you from records protected by federal confidentiality rules (42 CFR part 2). The federal rules prohibit you from making any further disclosure of this information unless further disclosure is expressly permitted by the written consent of the person to whom it pertains or as otherwise permitted by 42 CFR part 2. A general authorization for the release of medical or other information is NOT sufficient for this purpose. The Federal rules restrict any use of the information to criminally investigate or prosecute any alcohol or drug abuse patient.The records that you are about to access may contain highly sensitive health information, the redisclosure of which is protected by Article 27-F of the [facility] Public Health law. If you continue you may have access to information: Regarding HIV / AIDS; Provided by facilities licensed or operated by the [facility] Office of Mental Health; or Provided by the [facility] Office for People With Developmental Disabilities. If such information is present, then the following [facility] mandated warning applies: This information has been disclosed to you from confidential records which are protected by state law. State law prohibits you from making any further disclosure of this information without the specific written consent of the person to whom it pertains, or as otherwise permitted by law. Any unauthorized further disclosure in violation of state law may result in a fine or nursing home sentence or both. A general authorization for the release of medical or other information is NOT sufficient authorization for further disc losure. Allergies and Adverse Reactions Type Description Substance Reaction Status Data Source(s ) Drug allergy rabeprazole rabeprazole [facility] Drug allergy levofloxacin Levofloxacin [facility] Drug allergy meperidine meperidine [facility] Drug allergy flurazepam flurazepam [facility] Drug allergy nitrofurantoin nitrofurantoin [facility] Drug allergy codeine Codeine [facility] Drug allergy diazepam diazepam [facility] Drug allergy Sulfa (Sulfonamide Antibiotics) Sulfa (Sulfonamide Ant ibiotics) [facility] Drug allergy Macrobid Macrobid Active [facility] (Harman Gerber MD [facility]) Drug allergy Macrobid Macrobid Active [facility] (Harman Gerber MD [facility]) Drug allergy Valium Valium Active [facility] (Harman Gerber MD [facility]) Drug allergy Valium Valium Active [facility] (Harman Gerber MD [facility]) Drug allergy Codeine and Related Codeine and Related Activ e [facility] (Andrew Gerber MD [facility]) Drug allergy Sulfa Antibiotics Sulfa Antibiotics Active [facility] (Andrew Gerber MD [facility]) Drug allergy Codeine and Related Codeine and Related Activ e [facility] (Andrew Gerber MD [facility]) Drug allergy Sulfa Antibiotics Sulfa Antibiotics Active [facility] (Andrew Gerber MD [facility]) Drug allergy Valium Diazepam contraindications [facility] Drug allergy Codeine Sulfate Drug allergy Anaphylaxis Active [facility]) Drug Allergy Drug Allergy NKDA [facility] Family History Family Member Name Family Member Gender Family Member Status Date o f Status Description Data Source(s) Unknown Condition [facility] Unknown Condition [facility] Unknown Condition [facility] Unknown Condition [facility] Unknown Condition [facility] Unknown Condition [facility] Unknown Condition [facility] Condition [facility] Condition [facility] Condition [facility] Condition [facility] Condition [facility] Condition [facility] Condition [facility] Condition [facility] Unknown Condition [facility] Unknown Condition [facility] Unknown Condition [facility] Condition [facility] Condition [facility] Unknown Condition [facility] Unknown Condition [facility] Unknown Condition [facility] Unknown Condition [facility] Unknown Condition [facility] Unknown Condition [facility] Unknown Condition [facility] Unknown Condition [facility] Unknown Condition [facility] Unknown Condition [facility] Condition [facility] Unknown Condition [facility] Unknown Condition [facility] Unknown Condition [facility] Unknown Condition [facility] Unknown Condition [facility] Condition [facility] Condition [facility] Condition [facility] Unknown Condition [facility] Unknown Condition [facility] Unknown Condition [facility] Condition [facility] Condition [facility] Unknown Condition [facility] Unknown Condition [facility] Condition [facility] Unknown Condition [facility] Unknown Condition [facility] Unknown Condition [facility] Unknown Condition [facility] Unknown Condition [facility] Unknown Condition [facility] Condition [facility] Condition [facility] Condition [facility] Condition [facility] Condition [facility] Condition [facility] Condition [facility] Condition [facility] Unknown Condition [facility] Unknown Condition [facility] Unknown Condition [facility] Unknown Condition [facility] Unknown Condition [facility] Unknown Condition [facility] Unknown Condition [facility] Unknown Condition [facility] Unknown Condition [facility] Unknown Condition [facility] Unknown Condition [facility] Unknown Condition [facility] Unknown Condition [facility] Unknown Condition [facility] Unknown Condition [facility] Unknown Condition [facility] Unknown Condition [facility] Unknown Condition [facility] Unknown Condition [facility] Unknown Condition [facility] Unknown Condition [facility] Unknown Condition [facility] Unknown Condition [facility] Unknown Condition [facility] Unknown Condition [facility] Unknown Condition [facility] Unknown Condition [facility] Unknown Condition [facility] Condition [facility] Unknown Condition [facility] Unknown Condition [facility] Unknown Condition [facility] Unknown Condition [facility] Unknown Condition [facility] Unknown Condition [facility] Unknown Condition [facility] Unknown Condition [facility] Unknown Condition [facility] Unknown Condition [facility] Unknown Condition [facility] Condition [facility] Unknown Condition [facility] Unknown Condition [facility] Unknown Condition [facility] Encounters Encounter Providers Location Date Indications Data Source(s ) Outpatient<td ID="encounterTypeDescripti onID1">1 WK PREOP FOR SURGERY</td><td>Lindsay Reddy DO</td><td>Andrew Samuel MD [facility]</td><td>09/08/2020</td><td>12:13PM</td><td>1:11PM</td><td><content ID="encounterDiagnosisID1-0">Cataract Senile Nuclear</content></td> Attender: LINDSAY Galvan MD [facility] 09/08/2020 12:13:00 PM EST - 09/08/2020 01:11:00 PM EST Cataract Senile Nuclear [facility] (Andrew lindsey MD [facility]) Cataract Senile Nuclear Outpatient<td ID="encounterTypeDescripti onID0">Extracapsular cataract removal w/IOL implant</td><td>Lindsay Reddy DO</td><td>[facility]</td><td>09/16/2020</td><td>09/08/2020 7:30AM</td><td>7:12AM</td><td></td> Attender: LINDSAY REDDY DO [facility] 10/2020 07:30:00 AM EST - 09/16/2020 07:12:00 AM EST [facility] (Andrew Gerber MD [facility]) Outpatient<td ID="encounterTypeDescripti onID3">TESTING - VISUAL FIELD & OCT</td><td>Lindsay eRddy DO</td><td>Andrew Samuel MD [facility]</td><td>08/19/2020</td><td>12:48PM</td><td>1:31PM</td><td><content ID="encounterDiagnosisID3-0">Rheumatoid Arthritis Rf Positive</content>, <content ID="encounterDiagnosisID3-1">Usp Use of Other Medications</content>, <content ID="encounterDiagnosisID3- 2">Stroke/cerebrovascular Accident</content></td> Attender: LINDSAY Galvan MD [facility] 08/19/2020 12:48:00 PM EST - 08/19/2020 01:31:00 PM EST Stroke/cerebrovascular AccidentLong Term Use of Other MedicationsRheumatoid Arthritis Rf Positive [facility] (Andrew Gerber MD [facility]) Stroke/cerebrovascular Accident 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 Rheumatoid Arthritis Rf Positive Outpatient<td ID="encounterTypeDescripti onID2">OCT RETINA</td><td></td><td>Andrew Samuel MD [facility]</td><td>08/19/2020</td><td>12:48PM</td><td>1:31PM</td><td></td> Andrew Samuel MD [facility] 08/19/2020 12:48:00 PM EST - 08/19/2020 01:31:00 PM EST [facility] (Andrew Gerber MD [facility]) Outpatient<td ID="encounterTypeDescripti onID4">Cataract Evaluation</td><td>Lindsay Reddy DO</td><td>Andrew Samuel MD [facility]</td><td>08/10/2020</td><td>8:23AM</td><td>9:12AM</td><td><content ID="encounterDiagnosisID4-0">Cataract Senile Nuclear</content>, <content ID="encounterDiagnosisID4-1">Dry Eye Syndrome</content>, <content ID="encounterDiagnosisID4-2">Usp Use of Other Medications</content>, <content ID="encounterDiagnosisID4-3">Rheumatoid Arthritis Rf Positive</content>, <content ID="encounterDiagnosisID4-4">Sicca Syndrome with Keratoconjunctivitis</content>, <content ID="encounterDiagnosisID4- 5">Stroke/cerebrovascular Accident</content></td> Attender: LINDSAY Galvan MD [facility] 08/10/2020 08:23:00 AM EST - 08/10/2020 09:12:00 AM EST Stroke/cerebrovascular AccidentSicca Syn drome with KeratoconjunctivitisRheumatoid Arthritis Rf PositiveLong Term Use of Other MedicationsDry Eye SyndromeCataract Senile Nuclear [facility] (Andrew Gerber MD [facility]) Stroke/cerebrovascular Accident Sicca Syndrome with Keratoconjunctivitis Rheumatoid Arthritis Rf Positive 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 Dry Eye Syndrome Cataract Senile Nuclear Unknown [address] [facility] [address] 07/26/2020 12:00:00 AM EST eCW1 ([facility]) Unknown [address] [facility] [address] 07/14/2020 12:00:00 AM EST eCW1 ([facility]) Outpatient Attender: Keri Nelson: Keri Church DO 07/13/2020 12:36:00 PM EST UNSTEADY GAIT [facility] l UNSTEADY GAIT Unknown [address] [facility] [address] 07/13/2020 12:00:00 AM EST eCW1 ([facility]) Outpatient Attender: Alicja Coto DO [facility] 07/06/2020 09:00:00 A M EST [facility] ([facility]) Outpatient Attender: MAGY Vasquez r: Keri Church DO 07/02/2020 10:50:00 AM EST - 07/02/2020 11:44:00 AM EST [facility] Outpatient Attender: Keri Nelson: Keri Church DO 06/29/2020 11:05:00 AM EST - 06/29/2020 12:52:00 PM EST [facility] Emergency Attender: Apollo Varela MD 05:06:00 PM EST - 06/27/2020 09:00:00 PM EST FALL [facility] l FALL Patient discharged. Outpatient Attender: MAGY Vasquez r: Keri Church DO 06/24/2020 11:13:00 AM EST - 06/24/2020 12:25:00 PM EST [facility] Emergency Attender: Apollo Valente MD 06/06 11:47:00 AM EST - 06/15/2020 01:26:00 PM EST FALL [facility] l FALL Patient discharged. Outpatient Attender: Keri Nelson: Keri Church DO 06/14/2020 10:09:00 AM EST - 06/14/2020 11:15:00 AM EST [facility] Outpatient Attender: Keri Church DO 06/11/2020 11:26 :00 AM EST D72.820,I10,R73.03,M81.0 [facility] D72.820,I10,R73.03,M81.0 Outpatient Attender: Alicja Coto [place] [facility] 05/31/2020 12:45:00 P M EDT MED[facility] ([facility]) Outpatient Attender: Kendra Santiagoender: DAGOBERTO PARR 05/10/2020 12:39:00 PM EDT LYMPHOCYTOSIS [facility] l LYMPHOCYTOSIS Emergency Attender: Apollo Valente MD 04/07 08:57:00 AM EDT - 05/02/2020 10:17:00 AM EDT NECK PAIN [facility] NECK PAIN Patient discharged. 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</content></td> Attender: Andrew Gerber MD, FACS Andrew Samuel MD [facility] 04/26/2020 12:12:00 PM EDT - 04/26/2020 01:01:00 PM ED T Usp Use of Other MedicationsRheumatoid Arthritis Rf Positive [facility] (Andrew Gerber MD [facility]) Usp Use of Other Medications Rheumatoid Arthritis Rf Positive Outpatient Attender: Ronal ENG [place] [facility] 04/23/2020 10:15:00 AM EDT [facility] ([facility]) Outpatient Attender: Anum Bender NPReferrer: Keri moon DO 03/30/2020 03:15:00 PM EDT - 03/30/2020 04:31:00 PM EDT [facility] Outpatient Attender: Keri Church DO 03/30/2020 02:57 :00 PM EDT [id number],R52 [facility] [id number],R52 Outpatient<td ID="encounterTypeDescripti onID6">TRIAGE NEW PATIENT WITH REFERRAL</td><td>Andrew Samuel MD, FACS</td><td>Andrew Samuel MD [facility]</td><td>03/26/2020</td><td>12:23PM</td><td>1:44PM</td><td><content ID="encounterDiagnosisID6-0">Usp Use of Other Medications</content>, <content ID="encounterDiagnosisID6-1">Sicca Syndrome with Keratoconjunctivitis</content>, <content ID="encounterDiagnosisID6-2">Rheumatoid Arthritis Rf Positive</content>, <content ID="encounterDiagnosisID6-3">Dry Eye Syndrome</content>, <content ID="encounterDiagnosisID6-4">Cataract Senile Nuclear</content>, <content ID="encounterDiagnosisID6-5">Vitreous Disorders Degeneration</content>, <content ID="encounterDiagnosisID6-6">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</content></td> Attender: Andrew Gerber MD, FACS Andrew Samuel MD [facility] 03/26/2020 12:23:00 PM EDT - 03/26/2020 01:44:00 PM EDT 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Vitreous Disorders DegenerationCataract Senile NuclearDry Eye SyndromeRheumatoid Arthritis Rf PositiveSicca Syndrome with Keratoconjunctivitis Usp Use of Other Medications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Vitreous Disorders DegenerationCataract Senile NuclearDry Eye SyndromeRheumatoid Arthritis Rf PositiveSicca Syndrome with KeratoconjunctivitisLong Term Use of Other Medications QUITMAN (Andrew Gerber MD [facility]) 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 Cataract Senile Nuclear Dry Eye Syndrome Rheumatoid Arthritis Rf Positive Sicca Syndrome with Keratoconjunctivitis Usp Use of Other Medications 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 Cataract Senile Nuclear Dry Eye Syndrome Rheumatoid Arthritis Rf Positive Sicca Syndrome with Keratoconjunctivitis 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 Outpatient Attender: Keri Church DOReferrer: Keri Church DO 03/08/2020 10:12:00 AM EDT - 03/08/2020 11:34:00 AM EDT [facility] Outpatient Attender: Delia Marquez NP [place] [facility] 03/02 10:00:00 AM EDT MED[facility] ([facility] Cardiology) Outpatient Attender: CASH PRADO MD Main office - [facility] 02/26/2020 11:30:00 AM EDT [facility] ([facility]) Outpatient Attender: Anum Bender NPReferrer: Keri moon DO 02/20/2020 12:57:00 PM EDT - 02/20/2020 01:29:00 PM EDT [facility] Outpatient Attender: Ronal ENG [place] [facility] 02/13/2020 02:00:00 PM EDT [facility] ([facility]) Outpatient Attender: Keri Church DO 02/05/2020 12:56:00 PM EDT D68.61,Z79.01 [facility] D68.61,Z79.01 Outpatient Attender: Alicja [facility]ick Office 01/16/2020 10:15:00 A M EDT [facility] ([facility]) Outpatient Attender: Alicja Coto DO 12/31/2019 03:17 :00 PM EDT OTHER CERVICAL DISC DEGENERATION, UNSP CERVICAL RE [facility] OTHER CERVICAL DISC DEGENERATION, UNSP C ERVICAL RE Outpatient Attender: Alicja Vick Office 12/25/2019 11:00:00 A M EDT [facility] ([facility]) Outpatient Attender: Keri Church DO 12/22/2019 01:53 :00 PM EDT D72.820,R55,D68.61,M32.9 [facility] D72.820,R55,D68.61,M32.9 Outpatient Attender: Keri Church DO 12/17/2019 12:17:00 PM EDT R55,D68.61,R51 [facility] R55,D68.61,R51 Outpatient Attender: Keri Nelson: Keri Church DO 12/16/2019 03:53:[facility] CASH PRADO MD Main office - [facility] 12/04/2019 10:45:00 AM EDT [facility] ([facility]) Outpatient Attender: Keri Church DO 12/02/2019 10:52:00 AM EDT R51,R55 [facility] R51,R55 Outpatient Attender: Keri Nelson: Keri Church DO 11/25/2019 09:36:00 AM EDT - 11/25/2019 11:01:00 AM EDT [facility] Outpatient Attender: Keri Church DO 11/24/2019 09:01:00 AM EDT K21.9,I10 [facility] K21.9,I10 Outpatient Attender: CASH PRADO MD 11/21/2019 02:5 4:00 PM EDT I10,K21.9,R73.03,M06.9,Z86.73 [facility] I10,K21.9,R73.03,M06.9,Z86.73 Outpatient Attender: CASH PRADO MD Main office - [facility] 11/21/2019 02:00:00 PM EDT [facility] ([facility]) Outpatient Attender: Delia Marquez NP [facility] 11/17 09:30:00 AM EDT [facility] ([facility]) Outpatient Attender: CASH PRADO MD Main office - [facility] 11/17/2019 10:00:00 AM EDT [facility] ([facility]) Outpatient Attender: ROSS BROTHERS MD 11/11/2019 07:48: 00 AM EDT SYNCOPE AND COLLAPSE,HTN,CVA [facility] SYNCOPE AND COLLAPSE,HTN,CVA Outpatient Attender: ROSS BROTHERS MD 11/04/2019 12:51: 00 PM EDT CHRONOTROPIC INCOMPETENCE [facility] CHRONOTROPIC INCOMPETENCE Outpatient Attender: Zuri Webber PA-C [facility] 11/03/2019 03:00:00 PM EDT [facility] ([facility]) Outpatient Attender: Keri Church DO 10/28/2019 12:28 :[address] STN W/O; S/P FALL , HEADACHE, ON ANTICOAGULANT [facility] CT. STN W/O; S/P FALL , HEADACHE, ON ANT ICOAGULANT Outpatient Attender: Keri Cantorer: Keri Church DO 10/28/2019 10:59:00 AM EDT - 10/28/2019 12:04:00 PM EDT [facility] Emergency Attender: Apollo Valente MD 10/04 03:20:00 PM EDT - 10/22/2019 06:56:00 PM EDT WEAKNESS, HIGH BLOOD PRESSURE [facility] pital WEAKNESS, HIGH BLOOD PRESSURE Patient discharged. Outpatient Attender: Keri Nelson: Keri Church DO 10/21/2019 01:32:00 PM EDT - 10/21/2019 02:44:00 PM EDT [facility] Outpatient Attender: CORY BAGLEYConsultant: KERI Love 10/07/2019 10:39:42 AM EST - 10/23/2019 12:17:00 PM EDT [facility] Patient discharged. [facility] [address] [place] [id number] 09/30/2019 12:00:00 AM EST eCW1 ([facility]) Outpatient Attender: CORY BAGLEY 09/08/2019 01:3 8:00 PM EST PRIMARY OA INVOLVING MULTIPLE JOINTS [facility] PRIMARY OA INVOLVING MULTIPLE JOINTS Outpatient [id number] [facility] [id number] 09/05/2019 12:00:00 AM EST eCW1 ([facility]) Outpatient Attender: Keri Nelson: Keri Church DO 07/29/2019 10:08:00 AM EST HEARING EVAL (AID EVAL) [facility] l HEARING EVAL (AID EVAL) Immunizations Vaccine Date Status Description Data Source(s) IIV3. This is one of two codes replacing CVX 15, which is being retired. 06/14/2020 12:00:00 AM EST completed influenza vaccine, inactivated [facility] IIV3. This is one of two codes replacing CVX 15, which is being retired. 06/14/2020 12:00:00 AM EST completed influenza vaccine, inactivated [facility] IIV3. This is one of two codes replacing CVX 15, which is being retired. 06/14/2020 12:00:00 AM EST completed influenza vaccine, inactivated [facility] IIV3. This is one of two codes replacing CVX 15, which is being retired. 06/14/2020 12:00:00 AM EST completed influenza vaccine, inactivated [facility] IIV3. This is one of two codes replacing CVX 15, which is being retired. 06/14/2020 12:00:00 AM EST completed influenza vaccine, inactivated [facility] Medications Medication Brand Name Start Date Product Form Dose Route Admi nistrative Instructions Pharmacy Instructions Status Indications Reaction Description Data Source(s) nepafenac 3 MG/ML Ophthalmic Suspension [Ilevro] Ilevro 0.3% Ophthalmic Suspension Ilevro 0.3% Ophthalmic Suspension 09/08/2020 12:00:00 AM EST aborted nepafenac 3 MG/ML Ophthalmic Suspension [Ilevro] [place] ([facility]) difluprednate 0.5 MG/ML Ophthalmic Suspe nsion [Durezol] Durezol 0.05% Ophthalmic Emulsion Durezol 0.05% Ophthalmic Emulsion 09/08/2020 12:00:00 AM EST aborted difluprednate 0.5 MG/ML Opht halmic Suspension [Durezol] [place] ([facility] moxifloxacin 5 MG/ML Ophthalmic Solution Moxifloxacin HCl 0.5% Ophthalmic Solution Moxifloxacin HCl 0.5% Ophthalmic Solution 09/08/2020 12:00:00 AM EST aborted moxifloxacin 5 MG/ML Oph thalmic Solution [facility] ([facility]) moxifloxacin 5 MG/ML Ophthalmic Solution Moxifloxacin HCl 0.5% Ophthalmic Solution Moxifloxacin HCl 0.5% Ophthalmic Solution 09/08/2020 12:00:00 AM EST active moxifloxacin 5 MG/ML Oph thalmic Solution [facility] ([facility]) Inveltys 1% Ophthalmic Suspension Inveltys 1% Ophthalmic Sue pension 09/08/2020 12:00:00 AM EST active loteprednol etabonate 10 MG/ML Ophthalmic Suspension [Inveltys] [place] ([facility]) BromSite 0.075% Ophthalmic Solution BromSite 0.075% Ophthalm ic Solution 09/08/2020 12:00:00 AM EST active bromfenac 0.75 MG/ML Ophthalmic Solution [Bromsite] [place] ([facility]) moxifloxacin 5 MG/ML Ophthalmic Solution Moxifloxacin HCl 0.5% Ophthalmic Solution Moxifloxacin HCl 0.5% Ophthalmic Solution 09/08/2020 12:00:00 AM EST aborted moxifloxacin 5 MG/ML Oph thalmic Solution [facility] ([facility]) Amoxicillin 875 MG / Clavulanate 125 MG Oral Tablet Am oxicillin-Pot Clavulanate Amoxicillin-Pot Clavulanate 06/24/2020 12:35:16 PM EST 1 TAB active [facility] Amoxicillin 875 MG / Clavulanate 125 MG Oral Tablet Am oxicillin-Pot Clavulanate Amoxicillin-Pot Clavulanate 06/24/2020 12:35:16 PM EST 1 TAB active [facility] Amoxicillin 875 MG / Clavulanate 125 MG Oral Tablet Am oxicillin-Pot Clavulanate Amoxicillin-Pot Clavulanate 06/24/2020 12:35:16 PM EST 1 TAB active [facility] Adhesive Tape 06/24/2020 12:34:13 PM EST 0 acti [facility] Adhesive Tape 06/24/2020 12:34:13 PM EST 0 acti [facility] Adhesive Tape 06/24/2020 12:34:13 PM EST 0 acti [facility] Gauze Bandage (Band-Aid Rolled Gauze) 2 X 2.5 "-yard bandage 06/24/2020 12:32:57 PM EST 0 active [facility] Gauze Bandage (Band-Aid Rolled Gauze) 2 X 2.5 "-yard bandage 06/24/2020 12:32:57 PM EST 0 active [facility] Gauze Bandage (Band-Aid Rolled Gauze) 2 X 2.5 "-yard bandage 06/24/2020 12:32:57 PM EST 0 active [facility] Adhesive Bandage (Telfa Amd) 4 X 5 " bandage 06/24/2020 12:3 1:36 PM EST 0 active [facility] Adhesive Bandage (Telfa Amd) 4 X 5 " bandage 06/24/2020 12:3 1:36 PM EST 0 active [facility] Adhesive Bandage (Telfa Amd) 4 X 5 " bandage 06/24/2020 12:3 1:36 PM EST 0 active [facility] Mupirocin 0.02 MG/MG Topical Ointment Mupirocin 06/24/2020 12:31 :01 PM EST 1 APPLIC [facility] Mupirocin 0.02 MG/MG Topical Ointment Mupirocin 06/24/2020 12:31 :01 PM EST 1 APPLIC active [facility] Mupirocin 0.02 MG/MG Topical Ointment Mupirocin 06/24/2020 12:31 :01 PM EST 1 APPLIC active [facility] Cholecalciferol 5000 UNT Oral Capsule Cholecalciferol (Vitamin D3) Cholecalciferol (Vitamin D3) 06/14/2020 05:16:27 PM EST [address] [facility] Cholecalciferol 5000 UNT Oral Capsule Cholecalciferol (Vitamin D3) Cholecalciferol (Vitamin D3) 06/14/2020 05:16:27 PM EST [address] [facility] Cholecalciferol 5000 UNT Oral Capsule Cholecalciferol (Vitamin D3) Cholecalciferol (Vitamin D3) 06/14/2020 05:16:27 PM EST [address] [facility] Cholecalciferol 5000 UNT Oral Capsule Cholecalciferol (Vitamin D3) Cholecalciferol (Vitamin D3) 06/14/2020 05:16:27 PM EST [address] [facility] Cholecalciferol 5000 UNT Oral Capsule Cholecalciferol (Vitamin D3) Cholecalciferol (Vitamin D3) 06/14/2020 05:16:27 PM EST [address] [facility] rifaximin 550 MG Oral Tablet Rifaximin Rifaximin 06/14/2020 10:3 4:48 AM EST 550 MG [facility] rifaximin 550 MG Oral Tablet Rifaximin Rifaximin 06/14/2020 10:3 4:48 AM EST 550 MG completed [facility] rifaximin 550 MG Oral Tablet Rifaximin Rifaximin 06/14/2020 10:3 4:48 AM EST 550 MG completed [facility] rifaximin 550 MG Oral Tablet Rifaximin Rifaximin 06/14/2020 10:3 4:48 AM EST 550 MG completed [facility] rifaximin 550 MG Oral Tablet Rifaximin Rifaximin 06/14/2020 10:3 4:48 AM EST 550 MG active [facility] rifaximin 550 MG Oral Tablet Rifaximin Rifaximin 06/14/2020 10:3 4:48 AM EST 550 MG active [facility] potassium citrate 5 MEQ Extended Release Oral Tablet P otassium Citrate Potassium Citrate 06/14/2020 10:34:41 AM EST 5 MEQ completed [facility] potassium citrate 5 MEQ Extended Release Oral Tablet P otassium Citrate Potassium Citrate 06/14/2020 10:34:41 AM EST 5 MEQ completed [facility] potassium citrate 5 MEQ Extended Release Oral Tablet P otassium Citrate Potassium Citrate 06/14/2020 10:34:41 AM EST 5 MEQ completed [facility] potassium citrate 5 MEQ Extended Release Oral Tablet P otassium Citrate Potassium Citrate 06/14/2020 10:34:41 AM EST 5 MEQ active [facility] potassium citrate 5 MEQ Extended Release Oral Tablet P otassium Citrate Potassium Citrate 06/14/2020 10:34:41 AM EST 5 MEQ active [facility] potassium citrate 5 MEQ Extended Release Oral Tablet P otassium Citrate Potassium Citrate 06/14/2020 10:34:41 AM EST 5 MEQ active [facility] Nadolol 20 MG Oral Tablet Nadolol 06/14/2020 10:34:33 AM EST 20 MG active [facility] Nadolol 20 MG Oral Tablet Nadolol 06/14/2020 10:34:33 AM EST 20 MG active [facility] Nadolol 20 MG Oral Tablet Nadolol 06/14/2020 10:34:33 AM EST 20 MG completed [facility] Nadolol 20 MG Oral Tablet Nadolol 06/14/2020 10:34:33 AM EST 20 MG active [facility] Nadolol 20 MG Oral Tablet Nadolol 06/14/2020 10:34:33 AM EST 20 MG completed [facility] Nadolol 20 MG Oral Tablet Nadolol 06/14/2020 10:34:33 AM EST 20 MG completed [facility] Hydroxychloroquine Sulfate 200 MG Oral Tablet Hydroxychloroq uine 06/14/2020 10:34:23 AM EST 200 MG active [facility] Hydroxychloroquine Sulfate 200 MG Oral Tablet Hydroxychloroq uine 06/14/2020 10:34:23 AM EST 200 MG completed [facility] Hydroxychloroquine Sulfate 200 MG Oral Tablet Hydroxychloroq uine 06/14/2020 10:34:23 AM EST 200 MG active [facility] Hydroxychloroquine Sulfate 200 MG Oral Tablet Hydroxychloroq uine 06/14/2020 10:34:23 AM EST 200 MG completed [facility] Hydroxychloroquine Sulfate 200 MG Oral Tablet Hydroxychloroq uine 06/14/2020 10:34:23 AM EST 200 MG active [facility] Hydroxychloroquine Sulfate 200 MG Oral Tablet Hydroxychloroq uine 06/14/2020 10:34:23 AM EST 200 MG completed [facility] Fexofenadine hydrochloride 180 MG Oral Tablet Fexofenadine 06/14/2020 10:34:14 AM EST 180 MG completed [facility] Fexofenadine hydrochloride 180 MG Oral Tablet Fexofenadine 06/14/2020 10:34:14 AM EST 180 MG active [facility] Fexofenadine hydrochloride 180 MG Oral Tablet Fexofenadine 06/14/2020 10:34:14 AM EST 180 MG completed [facility] Fexofenadine hydrochloride 180 MG Oral Tablet Fexofenadine 06/14/2020 10:34:14 AM EST 180 MG completed [facility] Fexofenadine hydrochloride 180 MG Oral Tablet Fexofenadine 06/14/2020 10:34:14 AM EST 180 MG active [facility] Fexofenadine hydrochloride 180 MG Oral Tablet Fexofenadine 06/14/2020 10:34:14 AM EST 180 MG active [facility] rifaximin 550 MG Oral Tablet Rifaximin Rifaximin 06/14/2020 10:1 6:30 AM EST 550 MG completed [facility] rifaximin 550 MG Oral Tablet Rifaximin Rifaximin 06/14/2020 10:1 6:30 AM EST 550 MG completed [facility] rifaximin 550 MG Oral Tablet Rifaximin Rifaximin 06/14/2020 10:1 6:30 AM EST 550 MG completed [facility] rifaximin 550 MG Oral Tablet Rifaximin Rifaximin 06/14/2020 10:1 6:30 AM EST 550 MG completed [facility] rifaximin 550 MG Oral Tablet Rifaximin Rifaximin 06/14/2020 10:1 6:30 AM EST 550 MG completed [facility] rifaximin 550 MG Oral Tablet Rifaximin Rifaximin 06/14/2020 10:1 6:30 AM EST 550 MG completed [facility] duloxetine 30 MG Delayed Release Oral Ca psule Duloxetine (Cymbalta) 30 mg capsule,delayed release(DR/EC) Duloxetine (Cymbalta) 30 mg capsule,martha yed release(DR/EC) 06/14/2020 10:15:16 AM EST 30 MG active [facility] duloxetine 30 MG Delayed Release Oral Ca psule Duloxetine (Cymbalta) 30 mg capsule,delayed release(DR/EC) Duloxetine (Cymbalta) 30 mg capsule,martha yed release(DR/EC) 06/14/2020 10:15:16 AM EST 30 MG active [facility] duloxetine 30 MG Delayed Release Oral Ca psule Duloxetine (Cymbalta) 30 mg capsule,delayed release(DR/EC) Duloxetine (Cymbalta) 30 mg capsule,martha yed release(DR/EC) 06/14/2020 10:15:16 AM EST 30 MG active [facility] duloxetine 30 MG Delayed Release Oral Ca psule Duloxetine (Cymbalta) 30 mg capsule,delayed release(DR/EC) Duloxetine (Cymbalta) 30 mg capsule,martha yed release(DR/EC) 06/14/2020 10:15:16 AM EST 30 MG active [facility] duloxetine 30 MG Delayed Release Oral Ca psule Duloxetine (Cymbalta) 30 mg capsule,delayed release(DR/EC) Duloxetine (Cymbalta) 30 mg capsule,martha yed release(DR/EC) 06/14/2020 10:15:16 AM EST 30 MG active [facility] duloxetine 30 MG Delayed Release Oral Ca psule Duloxetine (Cymbalta) 30 mg capsule,delayed release(DR/EC) Duloxetine (Cymbalta) 30 mg capsule,martha yed release(DR/EC) 06/14/2020 10:15:16 AM EST 30 MG active [facility] Afluria Qd 2019-(3yr up)(PF) (flu vac [id number] 36mos up(P F)) 06/14/2020 10:09:07 AM EST [facility]5 [facility] [id number] 36mos up(P F)) 06/14/2020 10:09:07 AM EST 0.5 ML [facility] (flu vac [id number] 36mos up(P F)) 06/14/2020 10:09:07 AM EST 0.5 ML [facility]-(3[facility] up[facility]PF[facility] (flu vac [id number] 36mos up(P F)) 06/14/2020 10:09:07 AM EST 0.5 ML [facility] (flu vac [id number] 36mos up(P F)) 06/14/2020 10:09:07 AM EST 0.5 ML completed [facility] Medrol Medrol 05/03/2020 12:00:00 AM EDT active [facility] ([facility]) Methylprednisolone Methylprednisolone (Medrol (Jarred)) 4 mg tablets,dose pack Methylprednisolone (Medrol (Jarred)) 4 mg tablets,dose pack 05/02/2020 10:02:27 AM EDT 0 completed [facility] Methylprednisolone Methylprednisolone (Medrol (Jarred)) 4 mg tablets,dose pack Methylprednisolone (Medrol (Jarred)) 4 mg tablets,dose pack 05/02/2020 10:02:27 AM EDT 0 completed [facility] Methylprednisolone Methylprednisolone (Medrol (Jarred)) 4 mg tablets,dose pack Methylprednisolone (Medrol (Jarred)) 4 mg tablets,dose pack 05/02/2020 10:02:27 AM EDT 0 completed [facility] Methylprednisolone Methylprednisolone (Medrol (Jarred)) 4 mg tablets,dose pack Methylprednisolone (Medrol (Jarred)) 4 mg tablets,dose pack 05/02/2020 10:02:27 AM EDT 0 completed [facility] Methylprednisolone Methylprednisolone (Medrol (Jarred)) 4 mg tablets,dose pack Methylprednisolone (Medrol (Jarred)) 4 mg tablets,dose pack 05/02/2020 10:02:27 AM EDT 0 completed [facility] Methylprednisolone Methylprednisolone (Medrol (Jarred)) 4 mg tablets,dose pack Methylprednisolone (Medrol (Jarred)) 4 mg tablets,dose pack 05/02/2020 10:02:27 AM EDT 0 active [facility] Methylprednisolone Methylprednisolone (Medrol (Jarred)) 4 mg tablets,dose pack Methylprednisolone (Medrol (Jarred)) 4 mg tablets,dose pack 05/02/2020 10:02:27 AM EDT 0 completed [facility] Cyclosporine 0.5 MG/ML Ophthalmic Suspen lily Cyclosporine (Restasis) 0.05 % dropperette Cyclosporine (Restasis) 0.05 % dropperette 04/19/2020 04:33:20 PM EDT 1 DROPS active [facility] Cyclosporine 0.5 MG/ML Ophthalmic Suspen lily Cyclosporine (Restasis) 0.05 % dropperette Cyclosporine (Restasis) 0.05 % dropperette 04/19/2020 04:33:20 PM EDT 1 DROPS active [facility] Cyclosporine 0.5 MG/ML Ophthalmic Suspen lily Cyclosporine (Restasis) 0.05 % dropperette Cyclosporine (Restasis) 0.05 % dropperette 04/19/2020 04:33:20 PM EDT 1 DROPS active [facility] Cyclosporine 0.5 MG/ML Ophthalmic Suspen lily Cyclosporine (Restasis) 0.05 % dropperette Cyclosporine (Restasis) 0.05 % dropperette 04/19/2020 04:33:20 PM EDT 1 DROPS active [facility] Cyclosporine 0.5 MG/ML Ophthalmic Suspen lily Cyclosporine (Restasis) 0.05 % dropperette Cyclosporine (Restasis) 0.05 % dropperette 04/19/2020 04:33:20 PM EDT 1 DROPS active [facility] Cyclosporine 0.5 MG/ML Ophthalmic Suspen lily Cyclosporine (Restasis) 0.05 % dropperette Cyclosporine (Restasis) 0.05 % dropperette 04/19/2020 04:33:20 PM EDT 1 DROPS active [facility] Cyclosporine 0.5 MG/ML Ophthalmic Suspen lily Cyclosporine (Restasis) 0.05 % dropperette Cyclosporine (Restasis) 0.05 % dropperette 04/19/2020 04:33:20 PM EDT 1 DROPS active [facility] Magnesium Oxide 400 MG Oral Tablet Magnesium Oxide 04/19/2020 04:33 :05 PM EDT 400 MG active [facility] Magnesium Oxide 400 MG Oral Tablet Magnesium Oxide 04/19/2020 04:33 :05 PM EDT 400 MG active [facility] Magnesium Oxide 400 MG Oral Tablet Magnesium Oxide 04/19/2020 04:33 :05 PM EDT 400 MG active [facility] Magnesium Oxide 400 MG Oral Tablet Magnesium Oxide 04/19/2020 04:33 :05 PM EDT 400 MG active [facility] Magnesium Oxide 400 MG Oral Tablet Magnesium Oxide 04/19/2020 04:33 :05 PM EDT 400 MG active [facility] Magnesium Oxide 400 MG Oral Tablet Magnesium Oxide 04/19/2020 04:33 :05 PM EDT 400 MG active [facility] Magnesium Oxide 400 MG Oral Tablet Magnesium Oxide 04/19/2020 04:33 :05 PM EDT 400 MG active [facility] Kelli Allergy 180 MG Oral Tablet Kelli Allergy 180 MG Or al Tablet 03/26/2020 12:00:00 AM EDT 1 active [facility] ([facility] rifaximin 550 MG Oral Tablet rifAXIMin 550 MG Oral Tab let rifAXIMin 550 MG Oral Tablet 03/26/2020 12:00:00 AM EDT 1 active rifaximin 550 MG Oral Tablet [facility] ([facility]) Lisinopril 20 MG Oral Tablet Lisinopril 20 MG Oral Tablet 12:00:00 AM EDT 1 active lisinopril 20 MG Oral Tablet [facility] ([facility] [employer]) Ascorbic Acid 500 MG Oral Capsule Ascorbic Acid 500 MG Oral Capsule 03/26/2020 12:00:00 AM EDT 1 active ascorbic acid 500 MG Oral Capsule [facility] ([facility]) Warfarin Sodium 3 MG Oral Tablet Warfarin Sodium 3 MG Oral T ablet 03/26/2020 12:00:00 AM EDT 1 active warfarin sodium 3 MG Oral Tablet [facility] ([facility]) Cymbalta 30 mg Oral Tablet Cymbalta 30 mg Oral Tablet 2019 12:00:00 AM EDT 1 active Cymbalta [facility] ([facility]) Aspirin 81 MG Delayed Release Oral Table t Adult Aspirin EC Low Strength 81 MG Oral Tablet Delayed Release Adult Aspirin EC Low Strength 81 MG Oral Tablet Delayed Release 03/26/2020 12:00:00 AM EDT 1 ac tive aspirin 81 MG Delayed Release Oral Tablet [facility] ([facility]) Cyclosporine 0.5 MG/ML Ophthalmic Suspen lily [Restasis] Restasis 0.05% Ophthalmic Emulsion Restasis 0.05% Ophthalmic Emulsion 03/26/2020 12:00:00 AM EDT active cyclospo rine 0.5 MG/ML Ophthalmic Suspension [Restasis] [place] ([facility]) Docusate Sodium 100 MG Oral Capsule Docusate Sodium 100 MG O ral Capsule 03/26/2020 12:00:00 AM EDT 1 active docusate sodium 100 MG Oral Capsule [facility] ([facility]) Daily Mel Multivitamin/Iron Oral Tablet Daily Mel Mu ltivitamin/Iron Oral Tablet 03/26/2020 12:00:00 AM EDT 1 active Daily Mel Multivitamin/Iron [facility] ([facility]) Warfarin Sodium 5 MG Oral Tablet Warfarin Sodium 5 MG Oral T ablet 03/26/2020 12:00:00 AM EDT 1 active warfarin sodium 5 MG Oral Tablet [facility] ([facility]) Potassium 5 MEQ Oral Tablet Potassium 5 MEQ Oral Tablet 03/07 12:00:00 AM EDT 1 active Potassium [facility] ([facility]) Magnesium 400 MG Oral Tablet Magnesium 400 MG Oral Tablet 12:00:00 AM EDT 1 active Magnesium [place] ([facility]) gabapentin 100 MG Oral Capsule Gabapentin 100 MG Oral Capsule Gabapentin 100 MG Oral Capsule 03/26/2020 12:00:00 AM EDT 1 activ e gabapentin 100 MG Oral Capsule [facility] ([facility]) Hydroxychloroquine 200 MG Oral Tablet Hydroxychloroquine 200 MG Oral Tablet 03/26/2020 12:00:00 AM EDT 1 active Hydroxychloroquine 200 MG [facility] ([facility]) Calcium-Vitamin D 500-200 MG-UNIT Oral Tablet Calcium- Vitamin D 500-200 MG-UNIT Oral Tablet 03/26/2020 12:00:00 AM EDT 1 active Calcium-Vitamin D [facility] ([facility]) Nadolol 20 MG Oral Tablet Nadolol 20 MG Oral Tablet 03/26/2020 1 2:00:00 AM EDT 1 active nadolol 20 MG Or al Tablet [facility] ([facility] pantoprazole 40 MG Oral Granules [Protonix] Protonix 4 0 MG Oral Packet Protonix 40 MG Oral Packet 03/26/2020 12:00:00 AM EDT 1 active pantoprazole 40 MG Oral Granules [Protonix] [facility] ([facility]) Warfarin Sodium 5 MG Oral Tablet Warfarin 03/22/2020 04:11:39 PM EDT 5 MG active [facility] Warfarin Sodium 5 MG Oral Tablet Warfarin 03/22/2020 04:11:39 PM EDT 5 MG active [facility] Warfarin Sodium 5 MG Oral Tablet Warfarin 03/22/2020 04:11:39 PM EDT 5 MG active [facility] Warfarin Sodium 5 MG Oral Tablet Warfarin 03/22/2020 04:11:39 PM EDT 5 MG active [facility] Warfarin Sodium 5 MG Oral Tablet Warfarin 03/22/2020 04:11:39 PM EDT 5 MG active [facility] Warfarin Sodium 5 MG Oral Tablet Warfarin 03/22/2020 04:11:39 PM EDT 5 MG active [facility] Warfarin Sodium 5 MG Oral Tablet Warfarin 03/22/2020 04:11:39 PM EDT 5 MG active [facility] Warfarin Sodium 5 MG Oral Tablet Warfarin 03/22/2020 04:11:39 PM EDT 5 MG active [facility] Injection Triamcinolone Acetonide Per 10 MG 02/02/2020 12:00 :00 AM EDT completed [facility] ([facility] Medication administered onsite 0.8 ML Enoxaparin sodium 100 MG/ML Prefi lled Syringe Enoxaparin (Lovenox) 80 mg/0.8 mL syringe Enoxaparin (Lovenox) 80 mg/0.8 mL syringe 01/29/2020 1 2:51:23 PM EDT 70 MG completed [facility] 0.8 ML Enoxaparin sodium 100 MG/ML Prefi lled Syringe Enoxaparin (Lovenox) 80 mg/0.8 mL syringe Enoxaparin (Lovenox) 80 mg/0.8 mL syringe 01/29/2020 1 2:51:23 PM EDT 70 MG completed [facility] 0.8 ML Enoxaparin sodium 100 MG/ML Prefi lled Syringe Enoxaparin (Lovenox) 80 mg/0.8 mL syringe Enoxaparin (Lovenox) 80 mg/0.8 mL syringe 01/29/2020 1 2:51:23 PM EDT 70 MG completed [facility] 0.8 ML Enoxaparin sodium 100 MG/ML Prefi lled Syringe Enoxaparin (Lovenox) 80 mg/0.8 mL syringe Enoxaparin (Lovenox) 80 mg/0.8 mL syringe 01/29/2020 1 2:51:23 PM EDT 70 MG completed [facility] 0.8 ML Enoxaparin sodium 100 MG/ML Prefi lled Syringe Enoxaparin (Lovenox) 80 mg/0.8 mL syringe Enoxaparin (Lovenox) 80 mg/0.8 mL syringe 01/29/2020 1 2:51:23 PM EDT 70 MG completed [facility] 0.8 ML Enoxaparin sodium 100 MG/ML Prefi lled Syringe Enoxaparin (Lovenox) 80 mg/0.8 mL syringe Enoxaparin (Lovenox) 80 mg/0.8 mL syringe 01/29/2020 1 2:51:23 PM EDT 70 MG completed [facility] 0.8 ML Enoxaparin sodium 100 MG/ML Prefi lled Syringe Enoxaparin (Lovenox) 80 mg/0.8 mL syringe Enoxaparin (Lovenox) 80 mg/0.8 mL syringe 01/29/2020 1 2:51:23 PM EDT 70 MG completed [facility] [facility] 0.8 ML Enoxaparin sodium 100 MG/ML Prefi lled Syringe Enoxaparin (Lovenox) 80 mg/0.8 mL syringe Enoxaparin (Lovenox) 80 mg/0.8 mL syringe 01/29/2020 1 2:51:23 PM EDT 70 MG completed [facility] 0.8 ML Enoxaparin sodium 100 MG/ML Prefi lled Syringe Enoxaparin (Lovenox) 80 mg/0.8 mL syringe Enoxaparin (Lovenox) 80 mg/0.8 mL syringe 01/29/2020 1 2:51:23 PM EDT 70 MG completed [facility] 0.8 ML Enoxaparin sodium 100 MG/ML Prefi lled Syringe Enoxaparin (Lovenox) 80 mg/0.8 mL syringe Enoxaparin (Lovenox) 80 mg/0.8 mL syringe 01/29/2020 1 2:51:23 PM EDT 70 MG completed [facility] 0.8 ML Enoxaparin sodium 100 MG/ML Prefi lled Syringe Enoxaparin (Lovenox) 80 mg/0.8 mL syringe Enoxaparin (Lovenox) 80 mg/0.8 mL syringe 01/23/2020 0 6:04:04 PM EDT 70 MG completed [facility] 0.8 ML Enoxaparin sodium 100 MG/ML Prefi lled Syringe Enoxaparin (Lovenox) 80 mg/0.8 mL syringe Enoxaparin (Lovenox) 80 mg/0.8 mL syringe 01/23/2020 0 6:04:04 PM EDT 70 MG completed [facility] 0.8 ML Enoxaparin sodium 100 MG/ML Prefi lled Syringe Enoxaparin (Lovenox) 80 mg/0.8 mL syringe Enoxaparin (Lovenox) 80 mg/0.8 mL syringe 01/23/2020 0 6:04:04 PM EDT 70 MG completed [facility] 0.8 ML Enoxaparin sodium 100 MG/ML Prefi lled Syringe Enoxaparin (Lovenox) 80 mg/0.8 mL syringe Enoxaparin (Lovenox) 80 mg/0.8 mL syringe 01/23/2020 0 6:04:04 PM EDT 70 MG completed [facility] 0.8 ML Enoxaparin sodium 100 MG/ML Prefi lled Syringe Enoxaparin (Lovenox) 80 mg/0.8 mL syringe Enoxaparin (Lovenox) 80 mg/0.8 mL syringe 01/23/2020 0 6:04:04 PM EDT 70 MG completed [facility] 0.8 ML Enoxaparin sodium 100 MG/ML Prefi lled Syringe Enoxaparin (Lovenox) 80 mg/0.8 mL syringe Enoxaparin (Lovenox) 80 mg/0.8 mL syringe 01/23/2020 0 6:04:04 PM EDT 70 MG completed [facility] 0.8 ML Enoxaparin sodium 100 MG/ML Prefi lled Syringe Enoxaparin (Lovenox) 80 mg/0.8 mL syringe Enoxaparin (Lovenox) 80 mg/0.8 mL syringe 01/23/2020 0 6:04:04 PM EDT 70 MG completed [facility] 0.8 ML Enoxaparin sodium 100 MG/ML Prefi lled Syringe Enoxaparin (Lovenox) 80 mg/0.8 mL syringe Enoxaparin (Lovenox) 80 mg/0.8 mL syringe 01/23/2020 0 6:04:04 PM EDT 70 MG completed [facility] 0.8 ML Enoxaparin sodium 100 MG/ML Prefi lled Syringe Enoxaparin (Lovenox) 80 mg/0.8 mL syringe Enoxaparin (Lovenox) 80 mg/0.8 mL syringe 01/23/2020 0 6:04:04 PM EDT 70 MG completed [facility] 0.8 ML Enoxaparin sodium 100 MG/ML Prefi lled Syringe Enoxaparin (Lovenox) 80 mg/0.8 mL syringe Enoxaparin (Lovenox) 80 mg/0.8 mL syringe 01/23/2020 0 6:04:04 PM EDT 70 MG completed [facility] Warfarin Sodium 1 MG Oral Tablet Warfarin (Coumadin) 1 mg tablet Warfarin (Coumadin) 1 mg tablet 12/26/2019 07:20:46 AM EDT 1 MG active [facility] Warfarin Sodium 1 MG Oral Tablet Warfarin (Coumadin) 1 mg tablet Warfarin (Coumadin) 1 mg tablet 12/26/2019 07:20:46 AM EDT 1 MG active [facility] Warfarin Sodium 1 MG Oral Tablet Warfarin (Coumadin) 1 mg tablet Warfarin (Coumadin) 1 mg tablet 12/26/2019 07:20:46 AM EDT 1 MG active [facility] Warfarin Sodium 1 MG Oral Tablet Warfarin (Coumadin) 1 mg tablet Warfarin (Coumadin) 1 mg tablet 12/26/2019 07:20:46 AM EDT 1 MG active [facility] Warfarin Sodium 1 MG Oral Tablet Warfarin (Coumadin) 1 mg tablet Warfarin (Coumadin) 1 mg tablet 12/26/2019 07:20:46 AM EDT 1 MG active [facility] Warfarin Sodium 1 MG Oral Tablet Warfarin (Coumadin) 1 mg tablet Warfarin (Coumadin) 1 mg tablet 12/26/2019 07:20:46 AM EDT 1 MG active [facility] Warfarin Sodium 1 MG Oral Tablet Warfarin (Coumadin) 1 mg tablet Warfarin (Coumadin) 1 mg tablet 12/26/2019 07:20:46 AM EDT 1 MG active [facility] Warfarin Sodium 1 MG Oral Tablet Warfarin (Coumadin) 1 mg tablet Warfarin (Coumadin) 1 mg tablet 12/26/2019 07:20:46 AM EDT 1 MG active [facility] Warfarin Sodium 1 MG Oral Tablet Warfarin (Coumadin) 1 mg tablet Warfarin (Coumadin) 1 mg tablet 12/26/2019 07:20:46 AM EDT 1 MG active [facility] Warfarin Sodium 1 MG Oral Tablet Warfarin (Coumadin) 1 mg tablet Warfarin (Coumadin) 1 mg tablet 12/26/2019 07:20:46 AM EDT 1 MG active [facility] Warfarin Sodium 5 MG Oral Tablet Warfarin 12/26/2019 07:20:36 AM EDT 5 MG completed [facility] Warfarin Sodium 5 MG Oral Tablet Warfarin 12/26/2019 07:20:36 AM EDT 5 MG completed [facility] Warfarin Sodium 5 MG Oral Tablet Warfarin 12/26/2019 07:20:36 AM EDT 5 MG active [facility] Warfarin Sodium 5 MG Oral Tablet Warfarin 12/26/2019 07:20:36 AM EDT 5 MG completed [facility] Warfarin Sodium 5 MG Oral Tablet Warfarin 12/26/2019 07:20:36 AM EDT 5 MG active [facility] Warfarin Sodium 5 MG Oral Tablet Warfarin 12/26/2019 07:20:36 AM EDT 5 MG completed [facility] Warfarin Sodium 5 MG Oral Tablet Warfarin 12/26/2019 07:20:36 AM EDT 5 MG completed [facility] Warfarin Sodium 5 MG Oral Tablet Warfarin 12/26/2019 07:20:36 AM EDT 5 MG completed [facility] Warfarin Sodium 5 MG Oral Tablet Warfarin 12/26/2019 07:20:36 AM EDT 5 MG completed [facility] Warfarin Sodium 5 MG Oral Tablet Warfarin 12/26/2019 07:20:36 AM EDT 5 MG completed [facility] gabapentin 400 MG Oral Capsule Gabapentin Gabapentin 2019 07:03:01 PM EDT 400 MG [facility] gabapentin 400 MG Oral Capsule Gabapentin Gabapentin 2019 07:03:01 PM EDT 400 MG [facility] gabapentin 400 MG Oral Capsule Gabapentin Gabapentin 2019 07:03:01 PM EDT 400 MG [facility] gabapentin 400 MG Oral Capsule Gabapentin Gabapentin 2019 07:03:01 PM EDT 400 MG [facility] gabapentin 400 MG Oral Capsule Gabapentin Gabapentin 2019 07:03:01 PM EDT 400 MG [facility] gabapentin 400 MG Oral Capsule Gabapentin Gabapentin 2019 07:03:01 PM EDT 400 MG [facility] gabapentin 400 MG Oral Capsule Gabapentin Gabapentin 2019 07:03:01 PM EDT 400 MG [facility] gabapentin 400 MG Oral Capsule Gabapentin Gabapentin 2019 07:03:01 PM EDT 400 MG [facility] gabapentin 400 MG Oral Capsule Gabapentin Gabapentin 2019 07:03:01 PM EDT 400 MG [facility] gabapentin 400 MG Oral Capsule Gabapentin Gabapentin 2019 07:03:01 PM EDT 400 MG [facility] gabapentin 100 MG Oral Capsule Gabapentin Gabapentin 2019 07:02:57 PM EDT 100 MG [facility] gabapentin 100 MG Oral Capsule Gabapentin Gabapentin 2019 07:02:57 PM EDT 100 MG [facility] gabapentin 100 MG Oral Capsule Gabapentin Gabapentin 2019 07:02:57 PM EDT 100 MG [facility] gabapentin 100 MG Oral Capsule Gabapentin Gabapentin 2019 07:02:57 PM EDT 100 MG [facility] gabapentin 100 MG Oral Capsule Gabapentin Gabapentin 2019 07:02:57 PM EDT 100 MG [facility] gabapentin 100 MG Oral Capsule Gabapentin Gabapentin 2019 07:02:57 PM EDT 100 MG [facility] gabapentin 100 MG Oral Capsule Gabapentin Gabapentin 2019 07:02:57 PM EDT 100 MG [facility] gabapentin 100 MG Oral Capsule Gabapentin Gabapentin 2019 07:02:57 PM EDT 100 MG [facility] gabapentin 100 MG Oral Capsule Gabapentin Gabapentin 2019 07:02:57 PM EDT 100 MG [facility] gabapentin 100 MG Oral Capsule Gabapentin Gabapentin 2019 07:02:57 PM EDT 100 MG [facility] Warfarin Sodium 5 MG Oral Tablet Warfarin 12/25/2019 07:01:59 PM EDT 5 MG completed [facility] Warfarin Sodium 5 MG Oral Tablet Warfarin 12/25/2019 07:01:59 PM EDT 5 MG completed [facility] Warfarin Sodium 5 MG Oral Tablet Warfarin 12/25/2019 07:01:59 PM EDT 5 MG completed [facility] Warfarin Sodium 5 MG Oral Tablet Warfarin 12/25/2019 07:01:59 PM EDT 5 MG completed [facility] Warfarin Sodium 5 MG Oral Tablet Warfarin 12/25/2019 07:01:59 PM EDT 5 MG completed [facility] Warfarin Sodium 5 MG Oral Tablet Warfarin 12/25/2019 07:01:59 PM EDT 5 MG completed [facility] Warfarin Sodium 5 MG Oral Tablet Warfarin 12/25/2019 07:01:59 PM EDT 5 MG completed [facility] Warfarin Sodium 5 MG Oral Tablet Warfarin 12/25/2019 07:01:59 PM EDT 5 MG completed [facility] Warfarin Sodium 5 MG Oral Tablet Warfarin 12/25/2019 07:01:59 PM EDT 5 MG completed [facility] Warfarin Sodium 5 MG Oral Tablet Warfarin 12/25/2019 07:01:59 PM EDT 5 MG completed [facility] Warfarin Sodium 1 MG Oral Tablet Warfarin (Coumadin) 1 mg tablet Warfarin (Coumadin) 1 mg tablet 12/25/2019 07:01:38 PM EDT 1 MG completed [facility] Warfarin Sodium 1 MG Oral Tablet Warfarin (Coumadin) 1 mg tablet Warfarin (Coumadin) 1 mg tablet 12/25/2019 07:01:38 PM EDT 1 MG completed [facility] Warfarin Sodium 1 MG Oral Tablet Warfarin (Coumadin) 1 mg tablet Warfarin (Coumadin) 1 mg tablet 12/25/2019 07:01:38 PM EDT 1 MG completed [facility] Warfarin Sodium 1 MG Oral Tablet Warfarin (Coumadin) 1 mg tablet Warfarin (Coumadin) 1 mg tablet 12/25/2019 07:01:38 PM EDT 1 MG completed [facility] Warfarin Sodium 1 MG Oral Tablet Warfarin (Coumadin) 1 mg tablet Warfarin (Coumadin) 1 mg tablet 12/25/2019 07:01:38 PM EDT 1 MG completed [facility] Warfarin Sodium 1 MG Oral Tablet Warfarin (Coumadin) 1 mg tablet Warfarin (Coumadin) 1 mg tablet 12/25/2019 07:01:38 PM EDT 1 MG completed [facility] Warfarin Sodium 1 MG Oral Tablet Warfarin (Coumadin) 1 mg tablet Warfarin (Coumadin) 1 mg tablet 12/25/2019 07:01:38 PM EDT 1 MG completed [facility] Warfarin Sodium 1 MG Oral Tablet Warfarin (Coumadin) 1 mg tablet Warfarin (Coumadin) 1 mg tablet 12/25/2019 07:01:38 PM EDT 1 MG completed [facility] Warfarin Sodium 1 MG Oral Tablet Warfarin (Coumadin) 1 mg tablet Warfarin (Coumadin) 1 mg tablet 12/25/2019 07:01:38 PM EDT 1 MG completed [facility] Warfarin Sodium 1 MG Oral Tablet Warfarin (Coumadin) 1 mg tablet Warfarin (Coumadin) 1 mg tablet 12/25/2019 07:01:38 PM EDT 1 MG completed [facility] Warfarin Sodium 4 MG Oral Tablet Warfarin (Coumadin) 4 mg tablet Warfarin (Coumadin) 4 mg tablet 12/25/2019 07:01:32 PM EDT 4 MG active [facility] Warfarin Sodium 4 MG Oral Tablet Warfarin (Coumadin) 4 mg tablet Warfarin (Coumadin) 4 mg tablet 12/25/2019 07:01:32 PM EDT 4 MG active [facility] Warfarin Sodium 4 MG Oral Tablet Warfarin (Coumadin) 4 mg tablet Warfarin (Coumadin) 4 mg tablet 12/25/2019 07:01:32 PM EDT 4 MG active [facility] Warfarin Sodium 4 MG Oral Tablet Warfarin (Coumadin) 4 mg tablet Warfarin (Coumadin) 4 mg tablet 12/25/2019 07:01:32 PM EDT 4 MG active [facility] Warfarin Sodium 4 MG Oral Tablet Warfarin (Coumadin) 4 mg tablet Warfarin (Coumadin) 4 mg tablet 12/25/2019 07:01:32 PM EDT 4 MG active [facility] Warfarin Sodium 4 MG Oral Tablet Warfarin (Coumadin) 4 mg tablet Warfarin (Coumadin) 4 mg tablet 12/25/2019 07:01:32 PM EDT 4 MG active [facility] Warfarin Sodium 4 MG Oral Tablet Warfarin (Coumadin) 4 mg tablet Warfarin (Coumadin) 4 mg tablet 12/25/2019 07:01:32 PM EDT 4 MG active [facility] Warfarin Sodium 4 MG Oral Tablet Warfarin (Coumadin) 4 mg tablet Warfarin (Coumadin) 4 mg tablet 12/25/2019 07:01:32 PM EDT 4 MG active [facility] Warfarin Sodium 4 MG Oral Tablet Warfarin (Coumadin) 4 mg tablet Warfarin (Coumadin) 4 mg tablet 12/25/2019 07:01:32 PM EDT 4 MG active [facility] Warfarin Sodium 4 MG Oral Tablet Warfarin (Coumadin) 4 mg tablet Warfarin (Coumadin) 4 mg tablet 12/25/2019 07:01:32 PM EDT 4 MG active [facility] Medrol Medrol 12/25/2019 12:00:00 AM EDT completed [facility] ([facility]) Medrol Medrol 12/25/2019 12:00:00 AM EDT completed [facility] ([facility]) Acetaminophen 325 MG / butalbital 50 MG / Caffeine 40 MG Oral Capsule Zhcqlqmwwn-Esfccwytvvzqz-Mwfm Xprxqdlhpu-Stvlhbioprdhv-Krby 11/25/2019 10:00:16 AM EDT 1 CAP completed [facility] Acetaminophen 325 MG / butalbital 50 MG / Caffeine 40 MG Oral Capsule Hkvxugsbwk-Erywdvgnacjxn-Itxz Sfgvmpvxqr-Fdwezgozzukgf-Srkr 11/25/2019 10:00:16 AM EDT 1 CAP completed [facility] Acetaminophen 325 MG / butalbital 50 MG / Caffeine 40 MG Oral Capsule Fmuusnqipa-Wsykppabvljjf-Elxz Mywwmjyvzh-Ohykfafjotwcs-Rpsr 11/25/2019 10:00:16 AM EDT 1 CAP completed [facility] Acetaminophen 325 MG / butalbital 50 MG / Caffeine 40 MG Oral Capsule Tujfpzsown-Jwxpuxjwardzi-Njhu Evqqtpbucx-Jcvbjmcqofboe-Ssnu 11/25/2019 10:00:16 AM EDT 1 CAP active [facility] Acetaminophen 325 MG / butalbital 50 MG / Caffeine 40 MG Oral Capsule Umyioyoaww-Rotlcugfknplh-Zmis Rsttywgnzq-Misbmtmvjjfbi-Fmed 11/25/2019 10:00:16 AM EDT 1 CAP completed [facility] Acetaminophen 325 MG / butalbital 50 MG / Caffeine 40 MG Oral Capsule Cymtaoaekm-Anvzerzhwyzbt-Hwsk Fmaofevnep-Vuhixsczavyiz-Acif 11/25/2019 10:00:16 AM EDT 1 CAP completed [facility] Acetaminophen 325 MG / butalbital 50 MG / Caffeine 40 MG Oral Capsule Nldmflogdh-Tjbwofkffwgys-Zzng Zeqzzdieoe-Mdnpnobvhllzu-Jtbw 11/25/2019 10:00:16 AM EDT 1 CAP completed [facility] Acetaminophen 325 MG / butalbital 50 MG / Caffeine 40 MG Oral Capsule Lzjlidwygr-Ravrqbqdduoom-Axzc Tzsuhoajkt-Mwedecltwqemx-Qxjm 11/25/2019 10:00:16 AM EDT 1 CAP completed [facility] Acetaminophen 325 MG / butalbital 50 MG / Caffeine 40 MG Oral Capsule Ultzrrdnsf-Gwvazhuzygctx-Fcwe Dboixmepuf-Jtbshffowjsun-Bxlk 11/25/2019 10:00:16 AM EDT 1 CAP completed [facility] Acetaminophen 325 MG / butalbital 50 MG / Caffeine 40 MG Oral Capsule Bhaolrgqkr-Idpgsagfovuxp-Apwr Kygwoxfjob-Ecfrfyaucqxgq-Bsuv 11/25/2019 10:00:16 AM EDT 1 CAP completed [facility] Acetaminophen 325 MG / butalbital 50 MG / Caffeine 40 MG Oral Capsule Wcbbzccorp-Euwwqhmpxwcvb-Bnkc Enctbzkglo-Cunxdggbzormr-Giaw 11/25/2019 10:00:16 AM EDT 1 CAP active [facility] Acetaminophen 325 MG / butalbital 50 MG / Caffeine 40 MG Oral Capsule Mrzzsktezt-Sscxlcjsjkzbp-Wils Nzuyfbsggn-Khwqaqpawtfzt-Ambo 11/25/2019 10:00:16 AM EDT 1 CAP completed [facility] Acetaminophen 325 MG / butalbital 50 MG / Caffeine 40 MG Oral Capsule Butalbital/Acetaminophen/Caffeine 11/21/2019 12:00:00 AM EDT ORAL active [facility] ([facility] ) Amoxicillin 875 MG / Clavulanate 125 MG Oral Tablet Amoxicillin-Pot Clavulanate (Augmentin) 875-125 mg tablet Amoxicillin-Pot Clavulanate (Augmentin) 875-125 mg tablet 10/28/2019 02:46:51 PM EDT 1 TAB completed [facility] Amoxicillin 875 MG / Clavulanate 125 MG Oral Tablet Amoxicillin-Pot Clavulanate (Augmentin) 875-125 mg tablet Amoxicillin-Pot Clavulanate (Augmentin) 875-125 mg tablet 10/28/2019 02:46:51 PM EDT 1 TAB completed [facility] Amoxicillin 875 MG / Clavulanate 125 MG Oral Tablet Amoxicillin-Pot Clavulanate (Augmentin) 875-125 mg tablet Amoxicillin-Pot Clavulanate (Augmentin) 875-125 mg tablet 10/28/2019 02:46:51 PM EDT 1 TAB completed [facility] Amoxicillin 875 MG / Clavulanate 125 MG Oral Tablet Am oxicillin-Pot Clavulanate Amoxicillin-Pot Clavulanate 10/28/2019 02:46:51 PM EDT 1 TAB completed [facility] Amoxicillin 875 MG / Clavulanate 125 MG Oral Tablet Amoxicillin-Pot Clavulanate (Augmentin) 875-125 mg tablet Amoxicillin-Pot Clavulanate (Augmentin) 875-125 mg tablet 10/28/2019 02:46:51 PM EDT 1 TAB completed [facility] Amoxicillin 875 MG / Clavulanate 125 MG Oral Tablet Amoxicillin-Pot Clavulanate (Augmentin) 875-125 mg tablet Amoxicillin-Pot Clavulanate (Augmentin) 875-125 mg tablet 10/28/2019 02:46:51 PM EDT 1 TAB completed [facility] Amoxicillin 875 MG / Clavulanate 125 MG Oral Tablet Am oxicillin-Pot Clavulanate Amoxicillin-Pot Clavulanate 10/28/2019 02:46:51 PM EDT 1 TAB completed [facility] Amoxicillin 875 MG / Clavulanate 125 MG Oral Tablet Amoxicillin-Pot Clavulanate (Augmentin) 875-125 mg tablet Amoxicillin-Pot Clavulanate (Augmentin) 875-125 mg tablet 10/28/2019 02:46:51 PM EDT 1 TAB completed [facility] Amoxicillin 875 MG / Clavulanate 125 MG Oral Tablet Amoxicillin-Pot Clavulanate (Augmentin) 875-125 mg tablet Amoxicillin-Pot Clavulanate (Augmentin) 875-125 mg tablet 10/28/2019 02:46:51 PM EDT 1 TAB completed [facility] Amoxicillin 875 MG / Clavulanate 125 MG Oral Tablet Amoxicillin-Pot Clavulanate (Augmentin) 875-125 mg tablet Amoxicillin-Pot Clavulanate (Augmentin) 875-125 mg tablet 10/28/2019 02:46:51 PM EDT 1 TAB completed [facility] Amoxicillin 875 MG / Clavulanate 125 MG Oral Tablet Amoxicillin-Pot Clavulanate (Augmentin) 875-125 mg tablet Amoxicillin-Pot Clavulanate (Augmentin) 875-125 mg tablet 10/28/2019 02:46:51 PM EDT 1 TAB completed [facility] Amoxicillin 875 MG / Clavulanate 125 MG Oral Tablet Amoxicillin-Pot Clavulanate (Augmentin) 875-125 mg tablet Amoxicillin-Pot Clavulanate (Augmentin) 875-125 mg tablet 10/28/2019 02:46:51 PM EDT 1 TAB completed [facility] pantoprazole 40 MG Delayed Release Oral Tablet Pantoprazole (Protonix) 40 mg tablet,delayed release (DR/EC) Pantoprazole (Protonix) 40 mg tablet,del ayed release (DR/EC) 10/21/2019 02:40:08 PM EDT 40 MG active [facility] pantoprazole 40 MG Delayed Release Oral Tablet Pantoprazole Pantoprazole 10/21/2019 02:40:08 PM EDT 40 MG active [facility] pantoprazole 40 MG Delayed Release Oral Tablet Pantoprazole Pantoprazole 10/21/2019 02:40:08 PM EDT 40 MG active [facility] pantoprazole 40 MG Delayed Release Oral Tablet Pantoprazole Pantoprazole 10/21/2019 02:40:08 PM EDT 40 MG active [facility] pantoprazole 40 MG Delayed Release Oral Tablet Pantoprazole (Protonix) 40 mg tablet,delayed release (DR/EC) Pantoprazole (Protonix) 40 mg tablet,del ayed release (DR/EC) 10/21/2019 02:40:08 PM EDT 40 MG active [facility] pantoprazole 40 MG Delayed Release Oral Tablet Pantoprazole (Protonix) 40 mg tablet,delayed release (DR/EC) Pantoprazole (Protonix) 40 mg tablet,del ayed release (DR/EC) 10/21/2019 02:40:08 PM EDT 40 MG active [facility] pantoprazole 40 MG Delayed Release Oral Tablet Pantoprazole (Protonix) 40 mg tablet,delayed release (DR/EC) Pantoprazole (Protonix) 40 mg tablet,del ayed release (DR/EC) 10/21/2019 02:40:08 PM EDT 40 MG active [facility] pantoprazole 40 MG Delayed Release Oral Tablet Pantoprazole Pantoprazole 10/21/2019 02:40:08 PM EDT 40 MG active [facility] pantoprazole 40 MG Delayed Release Oral Tablet Pantoprazole (Protonix) 40 mg tablet,delayed release (DR/EC) Pantoprazole (Protonix) 40 mg tablet,del ayed release (DR/EC) 10/21/2019 02:40:08 PM EDT 40 MG active [facility] pantoprazole 40 MG Delayed Release Oral Tablet Pantoprazole (Protonix) 40 mg tablet,delayed release (DR/EC) Pantoprazole (Protonix) 40 mg tablet,del ayed release (DR/EC) 10/21/2019 02:40:08 [address] [facility] pantoprazole 40 MG Delayed Release Oral Tablet Pantoprazole (Protonix) 40 mg tablet,delayed release (DR/EC) Pantoprazole (Protonix) 40 mg tablet,del ayed release (DR/EC) 10/21/2019 02:40:08 PM EDT 40 MG active [facility] pantoprazole 40 MG Delayed Release Oral Tablet Pantoprazole Pantoprazole 10/21/2019 02:40:08 [address]T [address] [facility] pantoprazole 40 MG Delayed Release Oral Tablet Pantoprazole (Protonix) 40 mg tablet,delayed release (DR/EC) Pantoprazole (Protonix) 40 mg tablet,del ayed release (DR/EC) 10/21/2019 02:40:08 PM [address]T [address] [facility] pantoprazole 40 MG Delayed Release Oral Tablet Pantoprazole (Protonix) 40 mg tablet,delayed release (DR/EC) Pantoprazole (Protonix) 40 mg tablet,del ayed release (DR/EC) 10/21/2019 02:40:08 [address]T [address] [facility] pantoprazole 40 MG Delayed Release Oral Tablet Pantoprazole (Protonix) 40 mg tablet,delayed release (DR/EC) Pantoprazole (Protonix) 40 mg tablet,del ayed release (DR/EC) 10/21/2019 02:40:08 [address] [facility] Lisinopril 20 MG Oral Tablet Lisinopril 10/21/2019 02:39:46 [address]T [address] [facility] Lisinopril 20 MG Oral Tablet Lisinopril 10/21/2019 02:39:46 PM EDT 20 MG active [facility] Lisinopril 20 MG Oral Tablet Lisinopril 10/21/2019 02:39:46 PM EDT 20 MG active [facility] Lisinopril 20 MG Oral Tablet Lisinopril 10/21/2019 02:39:46 PM EDT 20 MG active [facility] Lisinopril 20 MG Oral Tablet Lisinopril 10/21/2019 02:39:46 PM EDT 20 MG active [facility] Lisinopril 20 MG Oral Tablet Lisinopril 10/21/2019 02:39:46 PM EDT 20 MG active [facility] Lisinopril 20 MG Oral Tablet Lisinopril 10/21/2019 02:39:46 PM EDT 20 MG active [facility] Lisinopril 20 MG Oral Tablet Lisinopril 10/21/2019 02:39:46 PM EDT 20 MG active [facility] Lisinopril 20 MG Oral Tablet Lisinopril 10/21/2019 02:39:46 PM EDT 20 MG active [facility] Lisinopril 20 MG Oral Tablet Lisinopril 10/21/2019 02:39:46 PM EDT 20 MG active [facility] Lisinopril 20 MG Oral Tablet Lisinopril 10/21/2019 02:39:46 PM EDT 20 MG active [facility] Lisinopril 20 MG Oral Tablet Lisinopril 10/21/2019 02:39:46 PM EDT 20 MG active [facility] Lisinopril 20 MG Oral Tablet Lisinopril 10/21/2019 02:39:46 PM EDT 20 MG active [facility] Lisinopril 20 MG Oral Tablet Lisinopril 10/21/2019 02:39:46 PM EDT 20 MG active [facility] Lisinopril 20 MG Oral Tablet Lisinopril 10/21/2019 02:39:46 PM EDT 20 MG active [facility] Warfarin Sodium 3 MG Oral Tablet Warfarin (Coumadin) 3 mg tablet Warfarin (Coumadin) 3 mg tablet 09/29/2019 02:59:05 PM EST 3 MG completed [facility] Warfarin Sodium 3 MG Oral Tablet Warfarin (Coumadin) 3 mg tablet Warfarin (Coumadin) 3 mg tablet 09/29/2019 02:59:05 PM EST 3 MG completed [facility] Warfarin Sodium 3 MG Oral Tablet Warfarin (Coumadin) 3 mg tablet Warfarin (Coumadin) 3 mg tablet 09/29/2019 02:59:05 PM EST 3 MG completed [facility] Warfarin Sodium 3 MG Oral Tablet Warfarin 09/29/2019 02:59:05 PM EST 3 MG completed [facility] Warfarin Sodium 3 MG Oral Tablet Warfarin 09/29/2019 02:59:05 PM EST 3 MG completed [facility] Warfarin Sodium 3 MG Oral Tablet Warfarin (Coumadin) 3 mg tablet Warfarin (Coumadin) 3 mg tablet 09/29/2019 02:59:05 PM EST 3 MG completed [facility] Warfarin Sodium 3 MG Oral Tablet Warfarin (Coumadin) 3 mg tablet Warfarin (Coumadin) 3 mg tablet 09/29/2019 02:59:05 PM EST 3 MG completed [facility] Warfarin Sodium 3 MG Oral Tablet Warfarin (Coumadin) 3 mg tablet Warfarin (Coumadin) 3 mg tablet 09/29/2019 02:59:05 PM EST 3 MG completed [facility] Warfarin Sodium 3 MG Oral Tablet Warfarin (Coumadin) 3 mg tablet Warfarin (Coumadin) 3 mg tablet 09/29/2019 02:59:05 PM EST 3 MG completed [facility] Warfarin Sodium 3 MG Oral Tablet Warfarin 09/29/2019 02:59:05 PM EST 3 MG completed [facility] Warfarin Sodium 3 MG Oral Tablet Warfarin (Coumadin) 3 mg tablet Warfarin (Coumadin) 3 mg tablet 09/29/2019 02:59:05 PM EST 3 MG completed [facility] Warfarin Sodium 3 MG Oral Tablet Warfarin (Coumadin) 3 mg tablet Warfarin (Coumadin) 3 mg tablet 09/29/2019 02:59:05 PM EST 3 MG completed [facility] Warfarin Sodium 3 MG Oral Tablet Warfarin (Coumadin) 3 mg tablet Warfarin (Coumadin) 3 mg tablet 09/29/2019 02:59:05 PM EST 3 MG completed [facility] Warfarin Sodium 3 MG Oral Tablet Warfarin 09/29/2019 02:59:05 PM EST 3 MG active [facility] Warfarin Sodium 3 MG Oral Tablet Warfarin 09/29/2019 02:59:05 PM EST 3 MG completed [facility] Calcium ascorbate 500 MG Oral Tablet Ascorbate Calcium (Vitamin C) Ascorbate Calcium (Vitamin C) 09/25/2019 06:49:08 PM EST 500 MG [facility] Calcium ascorbate 500 MG Oral Tablet Ascorbate Calcium (Vitamin C) Ascorbate Calcium (Vitamin C) 09/25/2019 06:49:08 PM EST 500 MG [facility] Calcium ascorbate 500 MG Oral Tablet Ascorbate Calcium (Vitamin C) Ascorbate Calcium (Vitamin C) 09/25/2019 06:49:08 PM EST 500 MG [facility] Calcium ascorbate 500 MG Oral Tablet Ascorbate Calcium (Vitamin C) Ascorbate Calcium (Vitamin C) 09/25/2019 06:49:08 PM EST 500 MG [facility] Calcium ascorbate 500 MG Oral Tablet Ascorbate Calcium (Vitamin C) Ascorbate Calcium (Vitamin C) 09/25/2019 06:49:08 PM EST 500 MG [facility] Calcium ascorbate 500 MG Oral Tablet Ascorbate Calcium (Vitamin C) Ascorbate Calcium (Vitamin C) 09/25/2019 06:49:08 PM EST 500 MG [facility] Calcium ascorbate 500 MG Oral Tablet Ascorbate Calcium (Vitamin C) Ascorbate Calcium (Vitamin C) 09/25/2019 06:49:08 PM EST 500 MG [facility] Calcium ascorbate 500 MG Oral Tablet Ascorbate Calcium (Vitamin C) Ascorbate Calcium (Vitamin C) 09/25/2019 06:49:08 PM EST 500 MG [facility] Calcium ascorbate 500 MG Oral Tablet Ascorbate Calcium (Vitamin C) Ascorbate Calcium (Vitamin C) 09/25/2019 06:49:08 PM EST 500 MG [facility] Calcium ascorbate 500 MG Oral Tablet Ascorbate Calcium (Vitamin C) Ascorbate Calcium (Vitamin C) 09/25/2019 06:49:08 PM EST 500 MG [facility] Calcium ascorbate 500 MG Oral Tablet Ascorbate Calcium (Vitamin C) Ascorbate Calcium (Vitamin C) 09/25/2019 06:49:08 PM EST 500 MG [facility] Calcium ascorbate 500 MG Oral Tablet Ascorbate Calcium (Vitamin C) Ascorbate Calcium (Vitamin C) 09/25/2019 06:49:08 PM EST 500 MG [facility] Calcium ascorbate 500 MG Oral Tablet Ascorbate Calcium (Vitamin C) Ascorbate Calcium (Vitamin C) 09/25/2019 06:49:08 PM EST 500 MG [facility] Calcium ascorbate 500 MG Oral Tablet Ascorbate Calcium (Vitamin C) Ascorbate Calcium (Vitamin C) 09/25/2019 06:49:08 PM EST 500 MG ac [facility] Calcium ascorbate 500 MG Oral Tablet Ascorbate Calcium (Vitamin C) Ascorbate Calcium (Vitamin C) 09/25/2019 06:49:08 PM EST 500 MG ac [facility] Nadolol 20 MG Oral Tablet Nadolol 09/04/2019 01:25:06 PM EST 20 MG completed [facility] Nadolol 20 MG Oral Tablet Nadolol 09/04/2019 01:25:06 PM EST 20 MG completed [facility] Nadolol 20 MG Oral Tablet Nadolol 09/04/2019 01:25:06 PM EST 20 MG completed [facility] Nadolol 20 MG Oral Tablet Nadolol 09/04/2019 01:25:06 PM EST 20 MG active [facility] Nadolol 20 MG Oral Tablet Nadolol 09/04/2019 01:25:06 PM EST 20 MG active [facility] Nadolol 20 MG Oral Tablet Nadolol 09/04/2019 01:25:06 PM EST 20 MG active [facility] Nadolol 20 MG Oral Tablet Nadolol 09/04/2019 01:25:06 PM EST 20 MG active [facility] Nadolol 20 MG Oral Tablet Nadolol 09/04/2019 01:25:06 PM EST 20 MG active [facility] Nadolol 20 MG Oral Tablet Nadolol 09/04/2019 01:25:06 PM EST 20 MG active [facility] Nadolol 20 MG Oral Tablet Nadolol 09/04/2019 01:25:06 PM EST 20 MG active [facility] Nadolol 20 MG Oral Tablet Nadolol 09/04/2019 01:25:06 PM EST 20 MG active [facility] Nadolol 20 MG Oral Tablet Nadolol 09/04/2019 01:25:06 PM EST 20 MG completed [facility] Nadolol 20 MG Oral Tablet Nadolol 09/04/2019 01:25:06 PM EST 20 MG active [facility] Nadolol 20 MG Oral Tablet Nadolol 09/04/2019 01:25:06 PM EST 20 MG completed [facility] Nadolol 20 MG Oral Tablet Nadolol 09/04/2019 01:25:06 PM EST 20 MG completed [facility] potassium citrate 5 MEQ Extended Release Oral Tablet P otassium Citrate Potassium Citrate 08/12/2019 11:32:11 AM EST 5 MEQ active [facility] potassium citrate 5 MEQ Extended Release Oral Tablet P otassium Citrate Potassium Citrate 08/12/2019 11:32:11 AM EST 5 MEQ active [facility] potassium citrate 5 MEQ Extended Release Oral Tablet P otassium Citrate Potassium Citrate 08/12/2019 11:32:11 AM EST 5 MEQ active [facility] potassium citrate 5 MEQ Extended Release Oral Tablet P otassium Citrate Potassium Citrate 08/12/2019 11:32:11 AM EST 5 MEQ active [facility] potassium citrate 5 MEQ Extended Release Oral Tablet P otassium Citrate Potassium Citrate 08/12/2019 11:32:11 AM EST 5 MEQ completed [facility] potassium citrate 5 MEQ Extended Release Oral Tablet P otassium Citrate Potassium Citrate 08/12/2019 11:32:11 AM EST 5 MEQ active [facility] potassium citrate 5 MEQ Extended Release Oral Tablet P otassium Citrate Potassium Citrate 08/12/2019 11:32:11 AM EST 5 MEQ active [facility] potassium citrate 5 MEQ Extended Release Oral Tablet P otassium Citrate Potassium Citrate 08/12/2019 11:32:11 AM EST 5 MEQ completed [facility] potassium citrate 5 MEQ Extended Release Oral Tablet P otassium Citrate Potassium Citrate 08/12/2019 11:32:11 AM EST 5 MEQ active [facility] potassium citrate 5 MEQ Extended Release Oral Tablet P otassium Citrate Potassium Citrate 08/12/2019 11:32:11 AM EST 5 MEQ active [facility] potassium citrate 5 MEQ Extended Release Oral Tablet P otassium Citrate Potassium Citrate 08/12/2019 11:32:11 AM EST 5 MEQ active [facility] potassium citrate 5 MEQ Extended Release Oral Tablet P otassium Citrate Potassium Citrate 08/12/2019 11:32:11 AM EST 5 MEQ completed [facility] potassium citrate 5 MEQ Extended Release Oral Tablet P otassium Citrate Potassium Citrate 08/12/2019 11:32:11 AM EST 5 MEQ completed [facility] potassium citrate 5 MEQ Extended Release Oral Tablet P otassium Citrate Potassium Citrate 08/12/2019 11:32:11 AM EST 5 MEQ completed [facility] potassium citrate 5 MEQ Extended Release Oral Tablet P otassium Citrate Potassium Citrate 08/12/2019 11:32:11 AM EST 5 MEQ completed [facility] Fexofenadine hydrochloride 180 MG Oral Tablet Fexofenadine 08/12/2019 11:31:57 AM EST 180 MG active [facility] Fexofenadine hydrochloride 180 MG Oral Tablet Fexofenadine 08/12/2019 11:31:57 AM EST 180 MG active [facility] Fexofenadine hydrochloride 180 MG Oral Tablet Fexofenadine 08/12/2019 11:31:57 AM EST 180 MG active [facility] Fexofenadine hydrochloride 180 MG Oral Tablet Fexofenadine 08/12/2019 11:31:57 AM EST 180 MG completed [facility] Fexofenadine hydrochloride 180 MG Oral Tablet Fexofenadine 08/12/2019 11:31:57 AM EST 180 MG completed [facility] Fexofenadine hydrochloride 180 MG Oral Tablet Fexofenadine 08/12/2019 11:31:57 AM EST 180 MG active [facility] Fexofenadine hydrochloride 180 MG Oral Tablet Fexofenadine 08/12/2019 11:31:57 AM EST 180 MG completed [facility] Fexofenadine hydrochloride 180 MG Oral Tablet Fexofenadine 08/12/2019 11:31:57 AM EST 180 MG completed [facility] Fexofenadine hydrochloride 180 MG Oral Tablet Fexofenadine 08/12/2019 11:31:57 AM EST 180 MG active [facility] Fexofenadine hydrochloride 180 MG Oral Tablet Fexofenadine 08/12/2019 11:31:57 AM EST 180 MG active [facility] Fexofenadine hydrochloride 180 MG Oral Tablet Fexofenadine 08/12/2019 11:31:57 AM EST 180 MG active [facility] Fexofenadine hydrochloride 180 MG Oral Tablet Fexofenadine 08/12/2019 11:31:57 AM EST 180 MG active [facility] Fexofenadine hydrochloride 180 MG Oral Tablet Fexofenadine 08/12/2019 11:31:57 AM EST 180 MG completed [facility] Fexofenadine hydrochloride 180 MG Oral Tablet Fexofenadine 08/12/2019 11:31:57 AM EST 180 MG active [facility] Fexofenadine hydrochloride 180 MG Oral Tablet Fexofenadine 08/12/2019 11:31:57 AM EST 180 MG completed [facility] Hydroxychloroquine Sulfate 200 MG Oral Tablet Hydroxychloroq 08/12/2019 11:30:15 AM EST 200 MG completed [facility] Hydroxychloroquine Sulfate 200 MG Oral Tablet Hydroxychloroq 08/12/2019 11:30:15 AM EST 200 MG active [facility] Hydroxychloroquine Sulfate 200 MG Oral Tablet Hydroxychloroq 08/12/2019 11:30:15 AM EST 200 MG active [facility] Hydroxychloroquine Sulfate 200 MG Oral Tablet Hydroxychloroq 08/12/2019 11:30:15 AM EST 200 MG active [facility] Hydroxychloroquine Sulfate 200 MG Oral Tablet Hydroxychloroq 08/12/2019 11:30:15 AM EST 200 MG active [facility] Hydroxychloroquine Sulfate 200 MG Oral Tablet Hydroxychloroq 08/12/2019 11:30:15 AM EST 200 MG completed [facility] Hydroxychloroquine Sulfate 200 MG Oral Tablet Hydroxychloroq 08/12/2019 11:30:15 AM EST 200 MG completed [facility] Hydroxychloroquine Sulfate 200 MG Oral Tablet Hydroxychloroq 08/12/2019 11:30:15 AM EST 200 MG completed [facility] Hydroxychloroquine Sulfate 200 MG Oral Tablet Hydroxychloroq 08/12/2019 11:30:15 AM EST 200 MG active [facility] Hydroxychloroquine Sulfate 200 MG Oral Tablet Hydroxychloroq 08/12/2019 11:30:15 AM EST 200 MG active [facility] Hydroxychloroquine Sulfate 200 MG Oral Tablet Hydroxychloroq 08/12/2019 11:30:15 AM EST 200 MG completed [facility] Hydroxychloroquine Sulfate 200 MG Oral Tablet Hydroxychloroq 08/12/2019 11:30:15 AM EST 200 MG active [facility] Hydroxychloroquine Sulfate 200 MG Oral Tablet Hydroxychloroq 08/12/2019 11:30:15 AM EST 200 MG active [facility] Hydroxychloroquine Sulfate 200 MG Oral Tablet Hydroxychloroq 08/12/2019 11:30:15 AM EST 200 MG active [facility] Hydroxychloroquine Sulfate 200 MG Oral Tablet Hydroxychloroq uine 08/12/2019 11:30:15 AM EST 200 MG completed [facility] gabapentin 400 MG Oral Capsule Gabapentin Gabapentin 2018 04:05:48 PM EST 400 MG completed [facility] gabapentin 400 MG Oral Capsule Gabapentin Gabapentin 2018 04:05:48 PM EST 400 MG completed [facility] gabapentin 400 MG Oral Capsule Gabapentin Gabapentin 2018 04:05:48 PM EST 400 MG completed [facility] gabapentin 400 MG Oral Capsule Gabapentin Gabapentin 2018 04:05:48 PM EST 400 MG completed [facility] gabapentin 400 MG Oral Capsule Gabapentin Gabapentin 2018 04:05:48 PM EST 400 MG completed [facility] gabapentin 400 MG Oral Capsule Gabapentin Gabapentin 2018 04:05:48 PM EST 400 MG completed [facility] gabapentin 400 MG Oral Capsule Gabapentin Gabapentin 2018 04:05:48 PM EST 400 MG completed [facility] gabapentin 400 MG Oral Capsule Gabapentin Gabapentin 2018 04:05:48 PM EST 400 MG completed [facility] gabapentin 400 MG Oral Capsule Gabapentin Gabapentin 2018 04:05:48 PM EST 400 MG [facility] gabapentin 400 MG Oral Capsule Gabapentin Gabapentin 2018 04:05:48 PM EST 400 MG [facility] Hydroxychloroquine Sulfate 200 MG Oral Tablet Hydroxychloroq uine 06/24/2019 11:36:23 AM EST 200 MG completed [facility] Hydroxychloroquine Sulfate 200 MG Oral Tablet Hydroxychloroq uine 06/24/2019 11:36:23 AM EST 200 MG completed [facility] Hydroxychloroquine Sulfate 200 MG Oral Tablet Hydroxychloroq uine 06/24/2019 11:36:23 AM EST 200 MG completed [facility] Hydroxychloroquine Sulfate 200 MG Oral Tablet Hydroxychloroq uine 06/24/2019 11:36:23 AM EST 200 MG completed [facility] Hydroxychloroquine Sulfate 200 MG Oral Tablet Hydroxychloroq uine 06/24/2019 11:36:23 AM EST 200 MG completed [facility] Hydroxychloroquine Sulfate 200 MG Oral Tablet Hydroxychloroq uine 06/24/2019 11:36:23 AM EST 200 MG completed [facility] Hydroxychloroquine Sulfate 200 MG Oral Tablet Hydroxychloroq uine 06/24/2019 11:36:23 AM EST 200 MG completed [facility] Hydroxychloroquine Sulfate 200 MG Oral Tablet Hydroxychloroq uine 06/24/2019 11:36:23 AM EST 200 MG completed [facility] Hydroxychloroquine Sulfate 200 MG Oral Tablet Hydroxychloroq uine 06/24/2019 11:36:23 AM EST 200 MG completed [facility] Hydroxychloroquine Sulfate 200 MG Oral Tablet Hydroxychloroq uine 06/24/2019 11:36:23 AM EST 200 MG completed [facility] Hydroxychloroquine Sulfate 200 MG Oral Tablet Hydroxychloroq uine 06/24/2019 11:36:23 AM EST 200 MG completed [facility] Hydroxychloroquine Sulfate 200 MG Oral Tablet Hydroxychloroq uine 06/24/2019 11:36:23 AM EST 200 MG completed [facility] Hydroxychloroquine Sulfate 200 MG Oral Tablet Hydroxychloroq uine 06/24/2019 11:36:23 AM EST 200 MG completed [facility] Hydroxychloroquine Sulfate 200 MG Oral Tablet Hydroxychloroq uine 06/24/2019 11:36:23 AM EST 200 MG completed [facility] Hydroxychloroquine Sulfate 200 MG Oral Tablet Hydroxychloroq uine 06/24/2019 11:36:23 AM EST 200 MG [facility] Lisinopril 10 MG Oral Tablet Lisinopril 05/29/2019 11:31:45 AM EDT 10 MG completed [facility] Lisinopril 10 MG Oral Tablet Lisinopril 05/29/2019 11:31:45 AM EDT 10 MG completed [facility] Lisinopril 10 MG Oral Tablet Lisinopril 05/29/2019 11:31:45 AM EDT 10 MG completed [facility] Lisinopril 10 MG Oral Tablet Lisinopril 05/29/2019 11:31:45 AM EDT 10 MG completed [facility] Lisinopril 10 MG Oral Tablet Lisinopril 05/29/2019 11:31:45 AM EDT 10 MG completed [facility] Lisinopril 10 MG Oral Tablet Lisinopril 05/29/2019 11:31:45 AM EDT 10 MG completed [facility] Lisinopril 10 MG Oral Tablet Lisinopril 05/29/2019 11:31:45 AM EDT 10 MG completed [facility] Lisinopril 10 MG Oral Tablet Lisinopril 05/29/2019 11:31:45 AM EDT 10 MG completed [facility] Lisinopril 10 MG Oral Tablet Lisinopril 05/29/2019 11:31:45 AM EDT 10 MG completed [facility] Lisinopril 10 MG Oral Tablet Lisinopril 05/29/2019 11:31:45 AM EDT 10 MG completed [facility] Lisinopril 10 MG Oral Tablet Lisinopril 05/29/2019 11:31:45 AM EDT 10 MG completed [facility] Lisinopril 10 MG Oral Tablet Lisinopril 05/29/2019 11:31:45 AM EDT 10 MG completed [facility] Lisinopril 10 MG Oral Tablet Lisinopril 05/29/2019 11:31:45 AM EDT 10 MG completed [facility] Lisinopril 10 MG Oral Tablet Lisinopril 05/29/2019 11:31:45 AM EDT [address] [facility] Lisinopril 10 MG Oral Tablet Lisinopril 05/29/2019 11:31:45 AM EDT 10 MG completed [facility] Warfarin Sodium 4 MG Oral Tablet Warfarin (Coumadin) 4 mg tablet Warfarin (Coumadin) 4 mg tablet 05/06/2019 10:26:33 AM EDT 4 MG completed [facility] Warfarin Sodium 4 MG Oral Tablet Warfarin (Coumadin) 4 mg tablet Warfarin (Coumadin) 4 mg tablet 05/06/2019 10:26:33 AM EDT 4 MG completed [facility] Warfarin Sodium 4 MG Oral Tablet Warfarin (Coumadin) 4 mg tablet Warfarin (Coumadin) 4 mg tablet 05/06/2019 10:26:33 AM EDT 4 MG [facility] Warfarin Sodium 4 MG Oral Tablet Warfarin (Coumadin) 4 mg tablet Warfarin (Coumadin) 4 mg tablet 05/06/2019 10:26:33 AM EDT 4 MG completed [facility] Warfarin Sodium 4 MG Oral Tablet Warfarin (Coumadin) 4 mg tablet Warfarin (Coumadin) 4 mg tablet 05/06/2019 10:26:33 AM EDT 4 MG completed [facility] Warfarin Sodium 4 MG Oral Tablet Warfarin (Coumadin) 4 mg tablet Warfarin (Coumadin) 4 mg tablet 05/06/2019 10:26:33 AM EDT 4 MG completed [facility] Warfarin Sodium 4 MG Oral Tablet Warfarin (Coumadin) 4 mg tablet Warfarin (Coumadin) 4 mg tablet 05/06/2019 10:26:33 AM EDT 4 MG completed [facility] Warfarin Sodium 4 MG Oral Tablet Warfarin (Coumadin) 4 mg tablet Warfarin (Coumadin) 4 mg tablet 05/06/2019 10:26:33 AM EDT 4 MG completed [facility] Warfarin Sodium 4 MG Oral Tablet Warfarin (Coumadin) 4 mg tablet Warfarin (Coumadin) 4 mg tablet 05/06/2019 10:26:33 AM EDT 4 MG completed [facility] Warfarin Sodium 4 MG Oral Tablet Warfarin (Coumadin) 4 mg tablet Warfarin (Coumadin) 4 mg tablet 05/06/2019 10:26:33 AM EDT 4 MG completed [facility] Magnesium Oxide 400 MG Oral Tablet Magnesium Oxide 04/21/2019 11:37 :27 AM EDT 400 MG [facility] Magnesium Oxide 400 MG Oral Tablet Magnesium Oxide 04/21/2019 11:37 :27 AM EDT 400 MG completed [facility] Magnesium Oxide 400 MG Oral Tablet Magnesium Oxide 04/21/2019 11:37 :27 AM EDT 400 MG completed [facility] Magnesium Oxide 400 MG Oral Tablet Magnesium Oxide 04/21/2019 11:37 :27 AM EDT 400 MG completed [facility] Magnesium Oxide 400 MG Oral Tablet Magnesium Oxide 04/21/2019 11:37 :27 AM EDT 400 MG completed [facility] Magnesium Oxide 400 MG Oral Tablet Magnesium Oxide 04/21/2019 11:37 :27 AM EDT 400 MG completed [facility] Magnesium Oxide 400 MG Oral Tablet Magnesium Oxide 04/21/2019 11:37 :27 AM EDT 400 MG [facility] rifaximin 550 MG Oral Tablet Rifaximin Rifaximin 04/21/2019 11:3 7:06 AM EDT 550 MG completed [facility] rifaximin 550 MG Oral Tablet Rifaximin Rifaximin 04/21/2019 11:3 7:06 AM EDT 550 MG completed [facility] rifaximin 550 MG Oral Tablet Rifaximin Rifaximin 04/21/2019 11:3 7:06 AM EDT 550 MG completed [facility] rifaximin 550 MG Oral Tablet Rifaximin Rifaximin 04/21/2019 11:3 7:06 AM EDT 550 MG completed [facility] rifaximin 550 MG Oral Tablet Rifaximin Rifaximin 04/21/2019 11:3 7:06 AM EDT 550 MG completed [facility] rifaximin 550 MG Oral Tablet Rifaximin Rifaximin 04/21/2019 11:3 7:06 AM EDT 550 MG completed [facility] duloxetine 30 MG Delayed Release Oral Ca psule Duloxetine (Cymbalta) 30 mg capsule,delayed release(DR/EC) Duloxetine (Cymbalta) 30 mg capsule,martha yed release(DR/EC) 04/21/2019 11:36:42 AM EDT 30 MG complete d [facility] duloxetine 30 MG Delayed Release Oral Ca psule Duloxetine (Cymbalta) 30 mg capsule,delayed release(DR/EC) Duloxetine (Cymbalta) 30 mg capsule,martha yed release(DR/EC) 04/21/2019 11:36:42 AM EDT 30 MG complete d [facility] duloxetine 30 MG Delayed Release Oral Ca psule Duloxetine (Cymbalta) 30 mg capsule,delayed release(DR/EC) Duloxetine (Cymbalta) 30 mg capsule,martha yed release(DR/EC) 04/21/2019 11:36:42 AM EDT 30 MG complete d [facility] duloxetine 30 MG Delayed Release Oral Ca psule Duloxetine (Cymbalta) 30 mg capsule,delayed release(DR/EC) Duloxetine (Cymbalta) 30 mg capsule,martha yed release(DR/EC) 04/21/2019 11:36:42 AM EDT 30 MG complete d [facility] duloxetine 30 MG Delayed Release Oral Ca psule Duloxetine (Cymbalta) 30 mg capsule,delayed release(DR/EC) Duloxetine (Cymbalta) 30 mg capsule,martha yed release(DR/EC) 04/21/2019 11:36:42 AM EDT 30 MG complete d [facility] duloxetine 30 MG Delayed Release Oral Ca psule Duloxetine (Cymbalta) 30 mg capsule,delayed release(DR/EC) Duloxetine (Cymbalta) 30 mg capsule,martha yed release(DR/EC) 04/21/2019 11:36:42 AM EDT 30 MG complete d [facility] gabapentin 100 MG Oral Capsule Gabapentin Gabapentin 2018 10:48:34 AM EDT 100 MG completed [facility] gabapentin 100 MG Oral Capsule Gabapentin Gabapentin 2018 10:48:34 AM EDT 100 MG completed [facility] gabapentin 100 MG Oral Capsule Gabapentin Gabapentin 2018 10:48:34 AM EDT 100 MG completed [facility] gabapentin 100 MG Oral Capsule Gabapentin Gabapentin 2018 10:48:34 AM EDT 100 MG completed [facility] gabapentin 100 MG Oral Capsule Gabapentin Gabapentin 2018 10:48:34 AM EDT 100 MG [facility] gabapentin 100 MG Oral Capsule Gabapentin Gabapentin 2018 10:48:34 AM EDT 100 MG completed [facility] gabapentin 100 MG Oral Capsule Gabapentin Gabapentin 2018 10:48:34 AM EDT 100 MG [facility] gabapentin 100 MG Oral Capsule Gabapentin Gabapentin 2018 10:48:34 AM EDT 100 MG [facility] gabapentin 100 MG Oral Capsule Gabapentin Gabapentin 2018 10:48:34 AM EDT 100 MG [facility] gabapentin 100 MG Oral Capsule Gabapentin Gabapentin 2018 10:48:34 AM EDT 100 MG [facility] Warfarin Sodium 1 MG Oral Tablet Warfarin (Coumadin) 1 mg tablet Warfarin (Coumadin) 1 mg tablet 02/21/2019 07:00:42 PM EDT 1 MG completed [facility] Warfarin Sodium 1 MG Oral Tablet Warfarin (Coumadin) 1 mg tablet Warfarin (Coumadin) 1 mg tablet 02/21/2019 07:00:42 PM EDT 1 MG completed [facility] Warfarin Sodium 1 MG Oral Tablet Warfarin (Coumadin) 1 mg tablet Warfarin (Coumadin) 1 mg tablet 02/21/2019 07:00:42 PM EDT 1 MG completed [facility] Warfarin Sodium 1 MG Oral Tablet Warfarin (Coumadin) 1 mg tablet Warfarin (Coumadin) 1 mg tablet 02/21/2019 07:00:42 PM EDT 1 MG completed [facility] Warfarin Sodium 1 MG Oral Tablet Warfarin (Coumadin) 1 mg tablet Warfarin (Coumadin) 1 mg tablet 02/21/2019 07:00:42 PM EDT 1 MG completed [facility] Warfarin Sodium 1 MG Oral Tablet Warfarin (Coumadin) 1 mg tablet Warfarin (Coumadin) 1 mg tablet 02/21/2019 07:00:42 PM EDT 1 MG completed [facility] Warfarin Sodium 1 MG Oral Tablet Warfarin (Coumadin) 1 mg tablet Warfarin (Coumadin) 1 mg tablet 02/21/2019 07:00:42 PM EDT 1 MG completed [facility] Warfarin Sodium 1 MG Oral Tablet Warfarin (Coumadin) 1 mg tablet Warfarin (Coumadin) 1 mg tablet 02/21/2019 07:00:42 PM EDT 1 MG completed [facility] Warfarin Sodium 1 MG Oral Tablet Warfarin (Coumadin) 1 mg tablet Warfarin (Coumadin) 1 mg tablet 02/21/2019 07:00:42 PM EDT 1 MG [facility] Warfarin Sodium 1 MG Oral Tablet Warfarin (Coumadin) 1 mg tablet Warfarin (Coumadin) 1 mg tablet 02/21/2019 07:00:42 PM EDT 1 MG [facility] potassium citrate 5 MEQ Extended Release Oral Tablet P otassium Citrate Potassium Citrate 02/18/2019 11:34:24 AM EDT 5 MEQ completed [facility] potassium citrate 5 MEQ Extended Release Oral Tablet P otassium Citrate Potassium Citrate 02/18/2019 11:34:24 AM EDT 5 MEQ completed [facility] potassium citrate 5 MEQ Extended Release Oral Tablet P otassium Citrate Potassium Citrate 02/18/2019 11:34:24 AM EDT 5 MEQ completed [facility] potassium citrate 5 MEQ Extended Release Oral Tablet P otassium Citrate Potassium Citrate 02/18/2019 11:34:24 AM EDT 5 MEQ completed [facility] potassium citrate 5 MEQ Extended Release Oral Tablet P otassium Citrate Potassium Citrate 02/18/2019 11:34:24 AM EDT 5 MEQ completed [facility] potassium citrate 5 MEQ Extended Release Oral Tablet P otassium Citrate Potassium Citrate 02/18/2019 11:34:24 AM EDT 5 MEQ completed [facility] potassium citrate 5 MEQ Extended Release Oral Tablet P otassium Citrate Potassium Citrate 02/18/2019 11:34:24 AM EDT 5 MEQ completed [facility] potassium citrate 5 MEQ Extended Release Oral Tablet P otassium Citrate Potassium Citrate 02/18/2019 11:34:24 AM EDT 5 MEQ completed [facility] potassium citrate 5 MEQ Extended Release Oral Tablet P otassium Citrate Potassium Citrate 02/18/2019 11:34:24 AM EDT 5 MEQ completed [facility] potassium citrate 5 MEQ Extended Release Oral Tablet P otassium Citrate Potassium Citrate 02/18/2019 11:34:24 AM EDT 5 MEQ [facility] potassium citrate 5 MEQ Extended Release Oral Tablet P otassium Citrate Potassium Citrate 02/18/2019 11:34:24 AM EDT 5 MEQ [facility] potassium citrate 5 MEQ Extended Release Oral Tablet P otassium Citrate Potassium Citrate 02/18/2019 11:34:24 AM EDT 5 MEQ [facility] potassium citrate 5 MEQ Extended Release Oral Tablet P otassium Citrate Potassium Citrate 02/18/2019 11:34:24 AM EDT 5 MEQ [facility] potassium citrate 5 MEQ Extended Release Oral Tablet P otassium Citrate Potassium Citrate 02/18/2019 11:34:24 AM EDT 5 MEQ [facility] potassium citrate 5 MEQ Extended Release Oral Tablet P otassium Citrate Potassium Citrate 02/18/2019 11:34:24 AM EDT 5 MEQ [facility] dexlansoprazole 60 MG Delayed Release Oral Capsule Dex lansoprazole Dexlansoprazole 02/18/2019 11:33:20 AM EDT 60 MG complet ed [facility] dexlansoprazole 60 MG Delayed Release Oral Capsule Dex lansoprazole Dexlansoprazole 02/18/2019 11:33:20 AM EDT 60 MG complet ed [facility] dexlansoprazole 60 MG Delayed Release Oral Capsule Dex lansoprazole Dexlansoprazole 02/18/2019 11:33:20 AM EDT 60 MG complet ed [facility] dexlansoprazole 60 MG Delayed Release Oral Capsule Dex lansoprazole Dexlansoprazole 02/18/2019 11:33:20 AM EDT 60 MG complet ed [facility] dexlansoprazole 60 MG Delayed Release Oral Capsule Dex lansoprazole Dexlansoprazole 02/18/2019 11:33:20 AM EDT 60 MG complet ed [facility] dexlansoprazole 60 MG Delayed Release Oral Capsule Dex lansoprazole Dexlansoprazole 02/18/2019 11:33:20 AM EDT 60 MG complet ed [facility] dexlansoprazole 60 MG Delayed Release Oral Capsule Dex lansoprazole Dexlansoprazole 02/18/2019 11:33:20 AM EDT 60 MG complet ed [facility] dexlansoprazole 60 MG Delayed Release Oral Capsule Dex lansoprazole Dexlansoprazole 02/18/2019 11:33:20 AM EDT 60 MG complet [facility] dexlansoprazole 60 MG Delayed Release Oral Capsule Dex lansoprazole Dexlansoprazole 02/18/2019 11:33:20 AM EDT 60 MG complet [facility] dexlansoprazole 60 MG Delayed Release Oral Capsule Dex lansoprazole Dexlansoprazole 02/18/2019 11:33:20 AM EDT 60 MG complet [facility] dexlansoprazole 60 MG Delayed Release Oral Capsule Dex lansoprazole Dexlansoprazole 02/18/2019 11:33:20 AM EDT 60 MG complet [facility] dexlansoprazole 60 MG Delayed Release Oral Capsule Dex lansoprazole Dexlansoprazole 02/18/2019 11:33:20 AM EDT 60 MG complet ed [facility] dexlansoprazole 60 MG Delayed Release Oral Capsule Dex lansoprazole Dexlansoprazole 02/18/2019 11:33:20 AM EDT 60 MG complet [facility] dexlansoprazole 60 MG Delayed Release Oral Capsule Dex lansoprazole Dexlansoprazole 02/18/2019 11:33:20 AM EDT 60 MG complet [facility] dexlansoprazole 60 MG Delayed Release Oral Capsule Dex lansoprazole Dexlansoprazole 02/18/2019 11:33:20 AM EDT 60 MG complet [facility] Fexofenadine hydrochloride 180 MG Oral Tablet Fexofenadine 02/18/2019 11:26:41 AM EDT 180 MG completed [facility] Fexofenadine hydrochloride 180 MG Oral Tablet Fexofenadine 02/18/2019 11:26:41 AM EDT 180 MG [facility] Fexofenadine hydrochloride 180 MG Oral Tablet Fexofenadine 02/18/2019 11:26:41 AM EDT 180 MG completed [facility] Fexofenadine hydrochloride 180 MG Oral Tablet Fexofenadine 02/18/2019 11:26:41 AM EDT 180 MG completed [facility] Fexofenadine hydrochloride 180 MG Oral Tablet Fexofenadine 02/18/2019 11:26:41 AM EDT 180 MG completed [facility] Fexofenadine hydrochloride 180 MG Oral Tablet Fexofenadine 02/18/2019 11:26:41 AM EDT 180 MG completed [facility] Fexofenadine hydrochloride 180 MG Oral Tablet Fexofenadine 02/18/2019 11:26:41 AM EDT 180 MG completed [facility] Fexofenadine hydrochloride 180 MG Oral Tablet Fexofenadine 02/18/2019 11:26:41 AM EDT 180 MG completed [facility] Fexofenadine hydrochloride 180 MG Oral Tablet Fexofenadine 02/18/2019 11:26:41 AM EDT 180 MG completed [facility] Fexofenadine hydrochloride 180 MG Oral Tablet Fexofenadine 02/18/2019 11:26:41 AM EDT 180 MG completed [facility] Fexofenadine hydrochloride 180 MG Oral Tablet Fexofenadine 02/18/2019 11:26:41 AM EDT 180 MG completed [facility] Fexofenadine hydrochloride 180 MG Oral Tablet Fexofenadine 02/18/2019 11:26:41 AM EDT 180 MG completed [facility] Fexofenadine hydrochloride 180 MG Oral Tablet Fexofenadine 02/18/2019 11:26:41 AM EDT 180 MG completed [facility] Fexofenadine hydrochloride 180 MG Oral Tablet Fexofenadine 02/18/2019 11:26:41 AM EDT 180 MG completed [facility] Fexofenadine hydrochloride 180 MG Oral Tablet Fexofenadine 02/18/2019 11:26:41 AM EDT 180 MG completed [facility] Nadolol 20 MG Oral Tablet Nadolol 02/18/2019 11:24:41 AM EDT 20 MG [facility] Nadolol 20 MG Oral Tablet Nadolol 02/18/2019 11:24:41 AM EDT 20 MG completed [facility] Nadolol 20 MG Oral Tablet Nadolol 02/18/2019 11:24:41 AM EDT 20 MG completed [facility] Nadolol 20 MG Oral Tablet Nadolol 02/18/2019 11:24:41 AM EDT 20 MG completed [facility] Nadolol 20 MG Oral Tablet Nadolol 02/18/2019 11:24:41 AM EDT 20 MG completed [facility] Nadolol 20 MG Oral Tablet Nadolol 02/18/2019 11:24:41 AM EDT 20 MG completed [facility] Nadolol 20 MG Oral Tablet Nadolol 02/18/2019 11:24:41 AM EDT 20 MG completed [facility] Nadolol 20 MG Oral Tablet Nadolol 02/18/2019 11:24:41 AM EDT 20 MG completed [facility] Nadolol 20 MG Oral Tablet Nadolol 02/18/2019 11:24:41 AM EDT 20 MG completed [facility] Nadolol 20 MG Oral Tablet Nadolol 02/18/2019 11:24:41 AM EDT 20 MG completed [facility] Nadolol 20 MG Oral Tablet Nadolol 02/18/2019 11:24:41 AM EDT 20 MG completed [facility] Nadolol 20 MG Oral Tablet Nadolol 02/18/2019 11:24:41 AM EDT 20 MG [facility] Nadolol 20 MG Oral Tablet Nadolol 02/18/2019 11:24:41 AM EDT 20 MG completed [facility] Nadolol 20 MG Oral Tablet Nadolol 02/18/2019 11:24:41 AM EDT 20 MG completed [facility] Nadolol 20 MG Oral Tablet Nadolol 02/18/2019 11:24:41 AM EDT 20 MG completed [facility] ferrous gluconate 324 MG Oral Tablet Ferrous Gluconate Yoko us Gluconate 02/18/2019 11:22:12 AM EDT 324 MG completed [facility] ferrous gluconate 324 MG Oral Tablet Ferrous Gluconate [facility]oko us Gluconate 02/18/2019 11:22:12 AM EDT 324 MG completed [facility] ferrous gluconate 324 MG Oral Tablet Ferrous Gluconate Yoko us Gluconate 02/18/2019 11:22:12 AM EDT 324 MG completed [facility] ferrous gluconate 324 MG Oral Tablet Ferrous Gluconate [facility]oko us Gluconate 02/18/2019 11:22:12 AM EDT 324 MG completed [facility] ferrous gluconate 324 MG Oral Tablet Ferrous Gluconate [facility] us Gluconate 02/18/2019 11:22:12 AM EDT 324 MG completed [facility] ferrous gluconate 324 MG Oral Tablet Ferrous Gluconate [facility] us Gluconate 02/18/2019 11:22:12 AM EDT 324 MG [facility] ferrous gluconate 324 MG Oral Tablet Ferrous Gluconate Yoko us Gluconate 02/18/2019 11:22:12 AM EDT 324 MG [facility] ferrous gluconate 324 MG Oral Tablet Ferrous Gluconate [facility] us Gluconate 02/18/2019 11:22:12 AM EDT 324 MG [facility] ferrous gluconate 324 MG Oral Tablet Ferrous Gluconate [facility] us Gluconate 02/18/2019 11:22:12 AM EDT 324 MG [facility] ferrous gluconate 324 MG Oral Tablet Ferrous Gluconate Yoko us Gluconate 02/18/2019 11:22:12 AM EDT 324 MG [facility] Cyclosporine 0.5 MG/ML Ophthalmic Suspen lily Cyclosporine (Restasis) 0.05 % dropperette Cyclosporine (Restasis) 0.05 % dropperette 01/10/2019 07:41:06 AM EDT 1 DROPS [facility] Cyclosporine 0.5 MG/ML Ophthalmic Suspen lily Cyclosporine (Restasis) 0.05 % dropperette Cyclosporine (Restasis) 0.05 % dropperette 01/10/2019 07:41:06 AM EDT 1 DROPS [facility] Cyclosporine 0.5 MG/ML Ophthalmic Suspen lily Cyclosporine (Restasis) 0.05 % dropperette Cyclosporine (Restasis) 0.05 % dropperette 01/10/2019 07:41:06 AM EDT 1 DROPS [facility] Cyclosporine 0.5 MG/ML Ophthalmic Suspen lily Cyclosporine (Restasis) 0.05 % dropperette Cyclosporine (Restasis) 0.05 % dropperette 01/10/2019 07:41:06 AM EDT 1 DROPS [facility] Cyclosporine 0.5 MG/ML Ophthalmic Suspen lily Cyclosporine (Restasis) 0.05 % dropperette Cyclosporine (Restasis) 0.05 % dropperette 01/10/2019 07:41:06 AM EDT 1 DROPS completed [facility] Cyclosporine 0.5 MG/ML Ophthalmic Suspen lily Cyclosporine (Restasis) 0.05 % dropperette Cyclosporine (Restasis) 0.05 % dropperette 01/10/2019 07:41:06 AM EDT 1 DROPS completed [facility] Cyclosporine 0.5 MG/ML Ophthalmic Suspen lily Cyclosporine (Restasis) 0.05 % dropperette Cyclosporine (Restasis) 0.05 % dropperette 01/10/2019 07:41:06 AM EDT 1 DROPS completed [facility] Warfarin Sodium 3 MG Oral Tablet Warfarin 12/23/2018 09:28:42 AM EDT 3 MG completed [facility] Warfarin Sodium 3 MG Oral Tablet Warfarin (Coumadin) 3 mg tablet Warfarin (Coumadin) 3 mg tablet 12/23/2018 09:28:42 AM EDT 3 MG completed [facility] Warfarin Sodium 3 MG Oral Tablet Warfarin (Coumadin) 3 mg tablet Warfarin (Coumadin) 3 mg tablet 12/23/2018 09:28:42 AM EDT 3 MG completed [facility] Warfarin Sodium 3 MG Oral Tablet Warfarin 12/23/2018 09:28:42 AM EDT 3 MG completed [facility] Warfarin Sodium 3 MG Oral Tablet Warfarin (Coumadin) 3 mg tablet Warfarin (Coumadin) 3 mg tablet 12/23/2018 09:28:42 AM EDT 3 MG completed [facility] Warfarin Sodium 3 MG Oral Tablet Warfarin (Coumadin) 3 mg tablet Warfarin (Coumadin) 3 mg tablet 12/23/2018 09:28:42 AM EDT 3 MG completed [facility] Warfarin Sodium 3 MG Oral Tablet Warfarin 12/23/2018 09:28:42 AM EDT 3 MG completed [facility] Warfarin Sodium 3 MG Oral Tablet Warfarin (Coumadin) 3 mg tablet Warfarin (Coumadin) 3 mg tablet 12/23/2018 09:28:42 AM EDT 3 MG completed [facility] Warfarin Sodium 3 MG Oral Tablet Warfarin (Coumadin) 3 mg tablet Warfarin (Coumadin) 3 mg tablet 12/23/2018 09:28:42 AM EDT 3 MG completed [facility] Warfarin Sodium 3 MG Oral Tablet Warfarin 12/23/2018 09:28:42 AM EDT 3 MG completed [facility] Warfarin Sodium 3 MG Oral Tablet Warfarin (Coumadin) 3 mg tablet Warfarin (Coumadin) 3 mg tablet 12/23/2018 09:28:42 AM EDT 3 MG completed [facility] Warfarin Sodium 3 MG Oral Tablet Warfarin (Coumadin) 3 mg tablet Warfarin (Coumadin) 3 mg tablet 12/23/2018 09:28:42 AM EDT 3 MG completed [facility] Warfarin Sodium 3 MG Oral Tablet Warfarin (Coumadin) 3 mg tablet Warfarin (Coumadin) 3 mg tablet 12/23/2018 09:28:42 AM EDT 3 MG completed [facility] Warfarin Sodium 3 MG Oral Tablet Warfarin 12/23/2018 09:28:42 AM EDT 3 MG completed [facility] Warfarin Sodium 3 MG Oral Tablet Warfarin (Coumadin) 3 mg tablet Warfarin (Coumadin) 3 mg tablet 12/23/2018 09:28:42 AM EDT 3 MG completed [facility] Insurance Providers Payer name Policy type / Coverage type Policy ID Covered alliance party ID Covered alliance party's relationship to vasquez Policy Vasquez Plan Information FOR LIFE [id number] SP [id number] MEDICARE [id number] SP [id number] Medicare Part B [facility] Other 0 Se lf 0 FOR LIFE [id number] SP [id number] Medicare Part B [facility] Other 0 Se lf 0 [facility] [employer] [facility] [id number] 18 [id number] MEDICARE -[place]RING [id number] 18 [id number] Problems, Conditions, and Diagnoses Code Display Name Description Problem Type Effective Dates Data Source(s) 93828879 Type 2 diabetes mellitus Type 2 diabetes mellitus Prob al 09/07/2020 12:00:00 AM EST [facility] ([facility]) 915059864 Dyspnea Dyspnea Problem 09/07/2020 12:00:00 AM ES T [facility] ([facility]) 60349448 Hypercoagulability state Hypercoagulability state Prob al 09/07/2020 12:00:00 AM EST [facility] ([facility]) 86891041 Toxic maculopathy (disorder) Toxic Maculopathy Problem 08/10/2020 12:00:00 AM EST [facility] ([facility]) 437.9 Stroke/cerebrovascular Accident Stroke/cerebrovascular Accident Problem 08/10/2020 12:00:00 AM EST [facility] ([facility]) 379.21 Vitreous Disorders Degeneration Vitreous Disorders Deg eneration Problem 03/26/2020 12:00:00 AM EDT [facility] ([facility]) 375.15 Dry Eye Syndrome Dry Eye Syndrome Problem 03/26/2020 12 :00:00 AM EDT [facility] ([facility]) 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 Problem 03/26/2020 12:00:00 AM EDT [facility] ([facility]) 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 Cataract Senile Nuclear Proble m 03/26/2020 12:00:00 AM EDT [facility] ([facility]) 714.0 Rheumatoid Arthritis Rf Positive Rheumatoid Arthritis Rf Positive Problem 03/26/2020 12:00:00 AM EDT [facility] ([facility]) 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 Problem 03/26/2020 12:00:00 AM EDT [facility] ([facility]) V58.69 Usp Use of Other Medications Usp Use of Other Medications Problem 03/26/2020 12:00:00 AM EDT [facility] ([facility]) 379.21 Vitreous Disorders Degeneration Vitreous Disorders Deg eneration Problem 03/26/2020 12:00:00 AM EDT [facility] ([facility]) 375.15 Dry Eye Syndrome Dry Eye Syndrome Problem 03/26/2020 12 :00:00 AM EDT [facility] ([facility]) 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 Problem 03/26/2020 12:00:00 AM EDT [facility] ([facility]) 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 Cataract Senile Nuclear Proble m 03/26/2020 12:00:00 AM EDT [facility] ([facility]) 714.0 Rheumatoid Arthritis Rf Positive Rheumatoid Arthritis Rf Positive Problem 03/26/2020 12:00:00 AM EDT [facility] ([facility]) 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 Problem 03/26/2020 12:00:00 AM EDT [facility] ([facility]) 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 Problem 03/26/2020 12:00:00 AM EDT [facility] ([facility]) 459472004 History of cerebrovascular accident with out residual deficits History of cerebrovascular accident without residual deficits Problem 03/02/2020 12:00:00 AM EDT [facility] ([facility]) 82928432 Right bundle branch block Right bundle branch block Pr oblem 03/02/2020 12:00:00 AM EDT [facility] ([facility]) 24098339 Degeneration of cervical intervertebral disc Degeneration of cervical intervertebral disc Problem 12/25/2019 12:00:00 AM EDT [facility] ([facility] 00222839 Cervical spondylosis with myelopathy Cer vical spondylosis with myelopathy Problem 12/25/2019 12:00:00 AM EDT [facility] ([facility] 757687206 Low back pain Low back pain Problem 11/17/2019 12:00:00 AM EDT [facility] ([facility] ) 17806397 Muscle weakness Muscle weakness Problem 11/17/2019 12:0 0:00 AM EDT [facility] ([facility] ) 632361042 Collapse Collapse Problem 11/17/2019 12:00:00 AM ED T [facility] ([facility] ) M32.9 [id number] Systemic lupus eryth ematosus, unspecified SLE type, unspecified organ involvement status Problem 09/30/2019 12:00:00 AM EST [facility] ([facility]) G89.29 42435356 Other chronic pain Problem 09/05/2019 12:00: 00 AM EST [facility] M25.512 [id number] Pain in left shoulder Problem 09/05/2019 12: 00:00 AM EST [facility]) M79.7 143694516 Fibromyalgia Problem 09/05/2019 12:00:00 AM EST [facility]) M15.0 263660183 Primary osteoarthritis involving multiple joints Problem 09/05/2019 12:00:00 AM EST [facility]) M32.9 909595414 History of lupus Problem 09/05/2019 12:00:00 AM EST [facility] ([facility]) M65.332 [id number] Trigger middle finger of left hand Proble m 09/05/2019 12:00:00 AM EST [facility]) M06.9 156066339 Rheumatoid arthritis involving multiple sites, unspecified rheumatoid factor presence Problem 09/05/2019 12:00:00 AM EST [facility] ( [facility]) D68.61 60960478 Antiphospholipid antibody syndrome Proble m 09/05/2019 12:00:00 AM EST [facility] ([facility]) G89.29 19313293 Other chronic pain Problem 09/05/2019 12:00: 00 AM EST [facility] ([facility]) M25.512 55185326 Pain in left shoulder Problem 09/05/2019 12: 00:00 AM EST [facility] ([facility]) M79.7 296215492 Fibromyalgia Problem 09/05/2019 12:00:00 AM EST [facility] ([facility]) M15.0 817459150 Primary osteoarthritis involving multiple joints Problem 09/05/2019 12:00:00 AM EST [facility] ([facility]) M32.9 060954041 History of lupus Problem 09/05/2019 12:00:00 AM EST [facility] ([facility]) M65.332 [id number] Trigger middle finger of left hand Proble m 09/05/2019 12:00:00 AM EST [facility]) M06.9 894388588 Rheumatoid arthritis involving multiple sites, unspecified rheumatoid factor presence Problem 09/05/2019 12:00:00 AM EST [facility] ( [facility]) D68.61 87684041 Antiphospholipid antibody syndrome Proble m 09/05/2019 12:00:00 AM EST [facility]) M545 Low back pain Low back pain Diagnosis 10/07/2019 10:43:00 AM EST [facility] Surgeries/Procedures Procedure Description Date Indications Data Source(s) OPH BMTRY PRTL COHER INTRFRMTRY IO LENS PWR VALERIANO Ophtha lmic biometry - IOL Master with IOL calculation (Right Side, WAIVER OF LIABILITY ON FILE (ABN)) 09/08/2020 12:00:00 AM EST [facility] ([facility]) Intermediate Eye Exam Established Patient (Signi/Sep E analia. & Man.) Intermediate Eye Exam Established Patient (Signi/Sep Eval. & Man.) 09/08/2020 12:00:00 AM EST [facility] ([facility]) Visual Field (WAIVER OF LIABILITY ON FILE (ABN)) Visua l Field (WAIVER OF LIABILITY ON FILE (ABN)) 08/19/2020 12:00:00 AM EST [facility] ([facility]) Scodi Retina, with interpretation and re port (WAIVER OF LIABILITY ON FILE (ABN)) Scodi Retina, with interpretation and re port (WAIVER OF LIABILITY ON FILE (ABN)) 08/19/2020 12:00:00 AM EST [facility] ([facility]) Intermediate Eye Exam Established Patient Intermediate Eye Exam Established Patient 08/10/2020 12:00:00 AM EST [facility] ([facility]) Plain x-ray of pelvis and lower extremity (procedure) 06/27/2020 06:17:00 PM [facility] l Xray Elbow complete LT 06/27/2020 06:17:[address] [facility] [address] Maxillofacial area w/o cont 06/27/2020 06:17:[address] [facility] [address] Head without contrast 06/27/2020 06:17:00 PM [facility] Plain x-ray of pelvis and lower extremity (procedure) 06/27/2020 06:17:00 PM [facility] l Xray Elbow complete LT 06/27/2020 06:17:[address] [facility] [address] Maxillofacial area w/o cont 06/27/2020 06:17:[address] [facility] [address] Head without contrast 06/27/2020 06:17:00 PM [facility] Plain x-ray of pelvis and lower extremity (procedure) 06/27/2020 06:17:00 PM [facility] Xray Elbow complete LT 06/27/2020 06:17:[address] [facility] [address] Maxillofacial area w/o cont 06/27/2020 06:17:[address] [facility] [address] Head without contrast 06/27/2020 06:17:00 PM [facility] Injection For Nerve Block, Greater Occipital Nerve 06/21/2020 12:00:00 AM EST [facility] ([facility]) Xray Elbow AP/LAT LT 06/15/2020 12:39:00 PM [facility] Xray Elbow AP/LAT LT 06/15/2020 12:39:00 PM [facility] Xray Elbow AP/LAT LT 06/15/2020 12:39:00 PM [facility] Xray Elbow AP/LAT LT 06/15/2020 12:39:00 PM [facility] Xray Elbow AP/LAT LT 06/15/2020 12:39:00 PM [facility] Plain x-ray of pelvis and lower extremity (procedure) 06/15/2020 11:57:00 AM [facility] Plain x-ray of pelvis and lower extremity (procedure) 06/15/2020 11:57:00 AM [facility] Plain x-ray of pelvis and lower extremity (procedure) 06/15/2020 11:57:00 AM [facility] Plain x-ray of pelvis and lower extremity (procedure) 06/15/2020 11:57:00 AM [facility] Plain x-ray of pelvis and lower extremity (procedure) 06/15/2020 11:57:00 AM [facility] Visual Field (WAIVER OF LIABILITY ON FILE (ABN)) Visua l Field (WAIVER OF LIABILITY ON FILE (ABN)) 04/26/2020 12:00:00 AM EDT [facility] ([facility]) Radiography of foot (procedure) 03/30/2020 03:08:00 PM EDT [facility] Radiography of foot (procedure) 03/30/2020 03:08:00 PM EDT [facility] Radiography of foot (procedure) 03/30/2020 03:08:00 PM EDT [facility] Radiography of foot (procedure) 03/30/2020 03:08:00 PM EDT [facility] Radiography of foot (procedure) 03/30/2020 03:08:00 PM EDT [facility] Radiography of foot (procedure) 03/30/2020 03:08:00 PM EDT [facility] Radiography of foot (procedure) 03/30/2020 03:08:00 PM EDT [facility] Radiography of foot (procedure) 03/30/2020 03:08:00 PM EDT [facility] Surgical / procedural history Spleen Removal, Hystere ctomy Surgical / procedural history Spleen Removal, Hysterectomy 03/26/2020 12:00:00 AM EDT [facility] ([facility]) Medical Eye Exam Medical Eye Exam 03/26/2020 12:00:00 AM EDT [facility] ([facility]) Medical Eye Exam Medical Eye Exam 03/26/2020 12:00:00 AM EDT [facility] ([facility]) Injection For Nerve Block, Greater Occipital Nerve 02/02/2020 12:00:00 AM EDT [facility] ([facility]) TSTG ANS FUNCJ CARDIOVAGAL INNERVAJ PARASYMP 0 12:00:00 AM EDT [facility] ([facility] ) TESTING AUTONOMIC NERVOUS SYSTEM FUNCTION 01/09/2020 1 2:00:00 AM EDT [facility] ([facility] ) MRI Cervical without contrast 12/31/2019 03:16:00 PM E [facility] MRI Cervical without contrast 12/31/2019 03:16:00 PM E [facility] MRI Cervical without contrast 12/31/2019 03:16:00 PM E [facility] MRI Cervical without contrast 12/31/2019 03:16:00 PM E [facility] MRI Cervical without contrast 12/31/2019 03:16:00 PM E [facility] MRI Cervical without contrast 12/31/2019 03:16:00 PM E [facility] MRI Cervical without contrast 12/31/2019 03:16:00 PM E [facility] MRI Cervical without contrast 12/31/2019 03:16:00 PM E [facility] MRI Cervical without contrast 12/31/2019 03:16:00 PM E [facility] MRI Cervical without contrast 12/31/2019 03:16:00 PM E [facility] Radiography of cervical spine (procedure) 12/02/2019 1 1:05:[address] [facility] Radiography of cervical spine (procedure) 12/02/2019 1 1:05:[address] [facility] Radiography of cervical spine (procedure) 12/02/2019 1 1:05:[address] [facility] Radiography of cervical spine (procedure) 12/02/2019 1 1:05:[address] [facility] Radiography of cervical spine (procedure) 12/02/2019 1 1:05:[address] [facility] Radiography of cervical spine (procedure) 12/02/2019 1 1:05:[address] [facility] Radiography of cervical spine (procedure) 12/02/2019 1 1:05:[address] [facility] Radiography of cervical spine (procedure) 12/02/2019 1 1:05:[address] [facility] Radiography of cervical spine (procedure) 12/02/2019 1 1:05:[address] [facility] Radiography of cervical spine (procedure) 12/02/2019 1 1:05:[address] [facility] Radiography of cervical spine (procedure) 12/02/2019 1 1:05:[address] [facility] Needle electromyography, each extremity, with related paraspinal areas, when performed, done with nerve conduction, amplitude and latency/velocity study; complete, five or more muscles studied, innervated by three or more nerves or four or more spinal levels (list separately in addition to the code for primary procedure). 12/01/2019 12:00:00 AM EDT [facility] ([facility], ) Needle electromyography, each extremity, with related paraspinal areas, when performed, done with nerve conduction, amplitude and latency/velocity study; complete, five or more muscles studied, innervated by three or more nerves or four or more spinal levels (list separately in addition to the code for primary procedure). 12/01/2019 12:00:00 AM EDT [facility] ([facility], ) Nerve Conduction 11-12 Studies 12/01/2019 12:00:00 AM EDT [facility] ([facility], ) EEG Extended Monitoring, 40-60 minutes 11/26/2019 12:0 0:00 AM EDT [facility] ([facility], ) EEG Extended Monitoring, 40-60 minutes 11/26/2019 12:0 0:00 AM EDT [facility] ([facility], ) Magnetic Resonance Angiography Neck W/O Contrast Materials 11/25/2019 12:00:00 AM EDT [facility] ([facility], ) Magnetic Resonance Angiography Neck W/O Contrast Materials 11/25/2019 12:00:00 AM EDT [facility] ([facility], ) Magnetic Resonance Angiogtaphy Head W/O Contrast Material(S) 11/25/2019 12:00:00 AM EDT [facility] ([facility], ) Magnetic Resonance Angiogtaphy Head W/O Contrast Material(S) 11/25/2019 12:00:00 AM EDT [facility] ([facility], ) ELECTROENCEPHALOGRAM W/REC AWAKE&ASLEEP 11/20/2019 12: 00:00 AM EDT [facility] ([facility], ) ELECTROENCEPHALOGRAM W/REC AWAKE&ASLEEP 11/20/2019 12: 00:00 AM EDT [facility] ([facility], ) MRI BRAIN BRAIN STEM W/O CONTRAST MATERIAL 11/19/2019 12:00:00 AM EDT [facility] ([facility], ) MRI BRAIN BRAIN STEM W/O CONTRAST MATERIAL 11/19/2019 12:00:00 AM EDT [facility] ([facility], ) MRI SPINAL CANAL LUMBAR W/O CONTRAST MATERIAL 11/19/19 20 12:00:00 AM EDT [facility] ([facility], ) MRI SPINAL CANAL LUMBAR W/O CONTRAST MATERIAL 11/19/19 20 12:00:00 AM EDT [facility] ([facility], ) Myocardial Perfusion Imaging Tomographic (Spect) Multiple St udies 11/11/2019 12:00:00 AM EDT [facility] ([facility]) Cardiovascular Stress Test Physician Supervision Only 11/11/2019 12:00:00 AM EDT [facility] ([facility]) Cardiovascular Stress Test Interpretation & Report Only 11/11/2019 12:00:00 AM EDT [facility] ([facility]) Echocardiography, Tranthoracic Complete Image Documentation 11/04/2019 12:00:00 AM EDT ZOHRA ([facility]) ECG Complete 11/03/2019 12:00:00 AM EDT Antonietta COTE ([facility]) CT C-Spine without contrast 10/28/2019 12:59:00 PM EDT [facility] CT Head without contrast 10/28/2019 12:59:00 PM EDT [facility] CT C-Spine without contrast 10/28/2019 12:59:00 PM EDT [facility] CT Head without contrast 10/28/2019 12:59:00 PM EDT [facility] CT C-Spine without contrast 10/28/2019 12:59:00 PM EDT [facility] CT Head without contrast 10/28/2019 12:59:00 PM EDT [facility] CT C-Spine without contrast 10/28/2019 12:59:00 PM EDT [facility] CT Head without contrast 10/28/2019 12:59:00 PM EDT [facility] CT C-Spine without contrast 10/28/2019 12:59:00 PM EDT [facility] CT Head without contrast 10/28/2019 12:59:00 PM EDT [facility] CT C-Spine without contrast 10/28/2019 12:59:00 PM EDT [facility] CT Head without contrast 10/28/2019 12:59:00 PM EDT [facility] CT C-Spine without contrast 10/28/2019 12:59:00 PM EDT [facility] CT Head without contrast 10/28/2019 12:59:00 PM EDT [facility] CT C-Spine without contrast 10/28/2019 12:59:00 PM EDT [facility] CT Head without contrast 10/28/2019 12:59:00 PM EDT [facility] CT C-Spine without contrast 10/28/2019 12:59:00 PM EDT [facility] CT Head without contrast 10/28/2019 12:59:00 PM EDT [facility] CT C-Spine without contrast 10/28/2019 12:59:00 PM EDT [facility] CT Head without contrast 10/28/2019 12:59:00 PM EDT [facility] CT C-Spine without contrast 10/28/2019 12:59:00 PM EDT [facility] CT Head without contrast 10/28/2019 12:59:00 PM EDT [facility] CT C-Spine without contrast 10/28/2019 12:59:00 PM EDT [facility] CT Head without contrast 10/28/2019 12:59:00 PM EDT [facility] Office Visit, Est Pt., Level 2 FC 09/30/2019 12:00:00 AM EST [facility] Visit, Est Pt., Level 4 PC 09/30/2019 12:00:00 AM EST [facility] X-ray of left knee (procedure) 09/08/2019 02:18:00 PM [facility] X-ray of right knee (procedure) 09/08/2019 02:18:00 PM [facility] Radiography of shoulder (procedure) 09/08/2019 02:18:0 0 PM [facility] Radiography of hand (procedure) 09/08/2019 02:18:00 PM [facility] Radiography of hand (procedure) 09/08/2019 02:18:00 PM [facility] X-ray of left knee (procedure) 09/08/2019 02:18:00 PM [facility] X-ray of right knee (procedure) 09/08/2019 02:18:00 PM [facility] Radiography of shoulder (procedure) 09/08/2019 02:18:0 0 PM [facility] Radiography of hand (procedure) 09/08/2019 02:18:00 PM [facility] Radiography of hand (procedure) 09/08/2019 02:18:00 PM [facility] X-ray of left knee (procedure) 09/08/2019 02:18:00 PM [facility] X-ray of right knee (procedure) 09/08/2019 02:18:00 PM [facility] Radiography of shoulder (procedure) 09/08/2019 02:18:0 0 PM [facility] Radiography of hand (procedure) 09/08/2019 02:18:00 PM [facility] Radiography of hand (procedure) 09/08/2019 02:18:00 PM [facility] X-ray of left knee (procedure) 09/08/2019 02:18:00 PM [facility] X-ray of right knee (procedure) 09/08/2019 02:18:00 PM [facility] Radiography of shoulder (procedure) 09/08/2019 02:18:0 0 PM [facility] Radiography of hand (procedure) 09/08/2019 02:18:00 PM [facility] Radiography of hand (procedure) 09/08/2019 02:18:00 PM [facility] X-ray of left knee (procedure) 09/08/2019 02:18:00 PM [facility] X-ray of right knee (procedure) 09/08/2019 02:18:00 PM [facility] Radiography of shoulder (procedure) 09/08/2019 02:18:0 0 PM [facility] Radiography of hand (procedure) 09/08/2019 02:18:00 PM [facility] Radiography of hand (procedure) 09/08/2019 02:18:00 PM [facility] X-ray of left knee (procedure) 09/08/2019 02:18:00 PM [facility] X-ray of right knee (procedure) 09/08/2019 02:18:00 PM [facility] Radiography of shoulder (procedure) 09/08/2019 02:18:0 0 PM [facility] Radiography of hand (procedure) 09/08/2019 02:18:00 PM [facility] Radiography of hand (procedure) 09/08/2019 02:18:00 PM [facility] X-ray of left knee (procedure) 09/08/2019 02:18:00 PM [facility] X-ray of right knee (procedure) 09/08/2019 02:18:00 PM [facility] Radiography of shoulder (procedure) 09/08/2019 02:18:0 0 PM [facility] Radiography of hand (procedure) 09/08/2019 02:18:00 PM [facility] Radiography of hand (procedure) 09/08/2019 02:18:00 PM [facility] X-ray of left knee (procedure) 09/08/2019 02:18:00 PM [facility] X-ray of right knee (procedure) 09/08/2019 02:18:00 PM [facility] Radiography of shoulder (procedure) 09/08/2019 02:18:0 0 PM [facility] Radiography of hand (procedure) 09/08/2019 02:18:00 PM [facility] Radiography of hand (procedure) 09/08/2019 02:18:00 PM [facility] X-ray of left knee (procedure) 09/08/2019 02:18:00 PM [facility] X-ray of right knee (procedure) 09/08/2019 02:18:00 PM [facility] Radiography of shoulder (procedure) 09/08/2019 02:18:0 0 PM [facility] Radiography of hand (procedure) 09/08/2019 02:18:00 PM [facility] Radiography of hand (procedure) 09/08/2019 02:18:00 PM [facility] X-ray of left knee (procedure) 09/08/2019 02:18:00 PM [facility] X-ray of right knee (procedure) 09/08/2019 02:18:00 PM [facility] Radiography of shoulder (procedure) 09/08/2019 02:18:0 0 PM [facility] Radiography of hand (procedure) 09/08/2019 02:18:00 PM [facility] Radiography of hand (procedure) 09/08/2019 02:18:00 PM [facility] X-ray of left knee (procedure) 09/08/2019 02:18:00 PM [facility] X-ray of right knee (procedure) 09/08/2019 02:18:00 PM [facility] Radiography of shoulder (procedure) 09/08/2019 02:18:0 0 PM [facility] Radiography of hand (procedure) 09/08/2019 02:18:00 PM [facility] Radiography of hand (procedure) 09/08/2019 02:18:00 PM [facility] X-ray of left knee (procedure) 09/08/2019 02:18:00 PM [facility] X-ray of right knee (procedure) 09/08/2019 02:18:00 PM [facility] Radiography of shoulder (procedure) 09/08/2019 02:18:0 0 PM [facility] Radiography of hand (procedure) 09/08/2019 02:18:00 PM [facility] Radiography of hand (procedure) 09/08/2019 02:18:00 PM [facility] X-ray of left knee (procedure) 09/08/2019 02:18:00 PM [facility] X-ray of right knee (procedure) 09/08/2019 02:18:00 PM [facility] Radiography of shoulder (procedure) 09/08/2019 02:18:0 0 PM [facility] Radiography of hand (procedure) 09/08/2019 02:18:00 PM [facility] Radiography of hand (procedure) 09/08/2019 02:18:00 PM [facility] X-ray of left knee (procedure) 09/08/2019 02:18:00 PM [facility] X-ray of right knee (procedure) 09/08/2019 02:18:00 PM [facility] Radiography of shoulder (procedure) 09/08/2019 02:18:0 0 PM [facility] Radiography of hand (procedure) 09/08/2019 02:18:00 PM [facility] Radiography of hand (procedure) 09/08/2019 02:18:00 PM [facility] X-ray of left knee (procedure) 09/08/2019 02:18:00 PM [facility] X-ray of right knee (procedure) 09/08/2019 02:18:00 PM [facility] Radiography of shoulder (procedure) 09/08/2019 02:18:0 0 PM [facility] Radiography of hand (procedure) 09/08/2019 02:18:00 PM [facility] Radiography of hand (procedure) 09/08/2019 02:18:00 PM [facility] Diagnostic radiography of lumbar spine (procedure) 09/08/2019 02:17:00 PM [facility] Diagnostic radiography of lumbar spine (procedure) 09/08/2019 02:17:00 PM [facility] Diagnostic radiography of lumbar spine (procedure) 09/08/2019 02:17:00 PM [facility] radiography of lumbar spine (procedure) 09/08/2019 02:17:00 PM [facility] Diagnostic radiography of lumbar spine (procedure) 09/08/2019 02:17:00 PM [facility] radiography of lumbar spine (procedure) 09/08/2019 02:17:00 PM [facility] Diagnostic radiography of lumbar spine (procedure) 09/08/2019 02:17:00 PM [facility] Diagnostic radiography of lumbar spine (procedure) 09/08/2019 02:17:00 PM [facility] Diagnostic radiography of lumbar spine (procedure) 09/08/2019 02:17:00 PM [facility] Diagnostic radiography of lumbar spine (procedure) 09/08/2019 02:17:00 PM [facility] Diagnostic radiography of lumbar spine (procedure) 09/08/2019 02:17:00 PM [facility] Diagnostic radiography of lumbar spine (procedure) 09/08/2019 02:17:00 PM [facility] Diagnostic radiography of lumbar spine (procedure) 09/08/2019 02:17:00 PM [facility] Diagnostic radiography of lumbar spine (procedure) 09/08/2019 02:17:00 PM [facility] Diagnostic radiography of lumbar spine (procedure) 09/08/2019 02:17:00 PM [facility] Results ID Date Data Source [id number] 09/11/2020 11:00:00 AM EST [facility] Name Value Range Interpretation Code Description Data Julianna rce(s) Supporting Document(s) SARS coronavirus 2 RNA Not Detected [facility] This lab was ordered by [facility] and reported by [facility]. ID Date Data Source [id number] 08/25/2020 12:00:00 AM EST [facility] Name Value Range Interpretation Code Description Data Julianna rce(s) Supporting Document(s) SARS-CoV-2 (COVID-19) RNA [Presence] in Respiratory specimen by WHIT with probe detection Not Detected [facility] This lab was ordered by [facility] and reported by [employer] ID Date Data Source [id number] 07/13/2020 12:46:00 PM [facility] Therapy Department [place] MCMANUS : 1950 Date: 07/13/20 [id number] Attending: Keri Church DO PT Outpatient Evaluation - Evaluation/Subjective Diagnosis:: unsteady gait, falls Impairments: Decreased Strength, Impaired ambulation, Impaired balance - Subjective Subjective: Patient presents due to an increase in falls. She reports she had a CVA in October of 2019and has since had 20-30 falls. Patient reports she tries to catch herself but loses her balance. She does have a walker for outside purposes (4W W). Patient reports no noticeable weakness since herCVA, but she has had decreased vision and she needs a double cataract surgery. She reports she has blurred vision (like looking through a screen door), but denies having double vision. Patient wouldlike to be able to walk up and down the stairs safely but her neurologist does not want her to use the stairs at all. Patient reports she has dwayne knee pain that is chronic. Pain at worse is 10/10. Pain at best is 5/10. She reports she has had injections but that did not help. - Objective Objective: AROM: WFL except left shoulder flexion to 105 deg due to previous fracture. Strength: -hip flexion: 4-/5 dwayne. -knee flexion: 4-/5 dwayne. -knee extension: 4/5 dwayne. -ankle DF: 4/5 dwayne. Gait: decreased arm swing to left UE, small steps, narrow VERA, backwards walking with CGA, unsteady with tandem ambulation. TU.47 seconds. 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 goal #1: Patient to demonstrate decreased TUG to less then 10 seconds to reduce fall risk in 6 weeks Music Promoter Goal #2: Patient to demonstrate ability to perform tandem ambulation without LOB in 6 weeks skilled nursing goal #3: Patient to demonstrate 5/5 strength to improve knee pain in 6 weeks Frequency: 2x/week Rehab Potential: Good Visits Reque sted: 12 Expiration date of orders:: 08/24/20 Therapist Sana Harris 07/13/20 1246 I certify this plan of care Keri Sabillon DO 07/13/20 1553 Date Time LAST EDIT: Name Value Range Interpretation Code Description Data Julianna rce(s) Supporting Document(s) ID Date Data Source [id number] 07/02/2020 11:17:00 AM [facility] Patient Name: [place] MCMANUS : 1950 Sex: F Pt Unit #: [id number] Location:[facility] Provider: Visit Date/Time: 07/02/20 Primary Insurance: MEDICARE [employer] Secondary Insurance: [employer] Intake Vital Signs 07/02/20 11:17 Current Height 4 ft 10 in Current Weight 157 lb Weight Measurement Method Standing Scale BMI 32.8 BP 132/72 Blood Pressure Location Rt brachial Position Sitting Respiration 16 Pulse 68 Pulse Strength Normal Pulse Source Pulse Oximeter Temp 97.0 F L Temp Source Tympanic Pulse Oximetry (%) 98 Oxygen Delivery Method room air Intake Visit Reasons: wound care Nurse Note: patient her today to follow up on a ER visit on 06/27/20. patient fell on some wet leaves and fell and hiut her forehead and her nose. patient denies loosing consciousness. patient had CAT and X-rays. those were negative. patient has ordered a rolling walker. 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 Is patient in pain?: Yes (left hip and left elbow) Pain scale (1- 10): 3 Allergies codeine [CODEINE] Allergy (Unknown, Verified 06/27/20 17:23) diazepam [From VALIUM] Allergy (Unknown, Verified 06/27/20 17:23) flurazepam [From DALMANE] Allergy (Unknown, Verified 06/27/20 17:23) levofloxacin [From LEVAQUIN] Allergy (Unknown, Verified 06/27/20 17:23) meperidine [From DEMEROL] Allergy (Unknown, Verified 06/27/20 17:23) nitrofurantoin [From MACROBID] Allergy (Unknown, Verified 06/27/20 17:23) rabeprazole [From ACIPHEX] Allergy (Unknown, Verified 06/27/20 17:23) Sulfa (Sulfonamide Antibiotics) [SULFA (SULFONAMIDE ANTIBIOTICS)] Allergy (Unknown, Verified 06/27/20 17:23) Medications - Last Reconciled 07/02/20 by Magy Howard, ARY acetaminophen (Tylenol) 350 - 650 mg (1 .0769 - 2 x 325 mg) PO HS adhesive bandage (Telfa AMD) As directed- apply to wound bid until healed with ointment adhesive tape As directed amoxicillin-pot clavulanate 875-125 mg 1 tab PO BID ascorbate calcium (vitamin C) 500 mg PO QDAY aspirin (Adult Aspirin Regimen) 81 mg PO QDAY calcium carbonate-vitamin D3 500 mg(1,250mg) -200 unit 1 tab PO QDAY cholecalciferol (vitamin D3) 125 mcg PO QDAY cyclosporine 0.05% (Restasis) 1 drop BOTH EYES (OU) Q12H docusate sodium (Colace) 100 mg PO QDAY duloxetine (Cymbalta) 30 mg PO QDAY fexofenadine 180 mg PO Q24H gabapentin 100 mg PO BID gabapentin 400 mg PO QDAY gauze bandage (Band-Aid Rolled Gauze) As directed-apply to affected area bid until healed hydroxychloroquine 200 mg PO BID lisinopril 20 mg PO QDAY magnesium oxide 400 mg PO QDAY multivitamin 1 tab PO QDAY mupirocin 2% 1 applic topical BID nadolol 20 mg PO QDAY pantoprazole (Protonix) 40 mg PO QDAY potassium citrate ER 5 mEq PO QDAY rifaximin 550 mg PO DAILY warfarin (Coumad in) 4 mg See Protocol PO DAILY warfarin (Coumadin) 1 mg See Protocol PO DAILY warfarin 5 mg See Protocol PO QDAY Fall Risk History of falls: Yes (06/27/20) Ambulatory Aid:: Hangs onto Furniture Gait/Transferring:: Impaired PHQ-2/9 Over the last 2 weeks, how often have you been bothered by any of the following problems? 1. Little interest or pleasure in doing things: not at all 2. Feeling down, depressed, or hopeless: not at all Total score: 0 HIV Testing Offer - ages 13-64 Requirement for HIV testing offer been met?: Not in age range SBIRT Annual Questionnaire Are you currently in recovery for alcohol or substance use?: No How many times in the past year have you had 4 or more drinks in a day?: None How many times in the past year have you used a recreational drug or used a prescription medication for nonmedical reasons?: None Do you need a note to return Do you need a note to return to daycare/school/sports/work: No Coronavirus Screening Screening Have you traveled outside of [facility] or [facility] in the last 14 days.: No Has patient experienced coronavirus symptoms: No PFSH Medical History (Updated 06/29/20 @ 12:12 by Keri Church DO) Arthritis Cavernoma Diabetes mellitus type 2 in obese Environmental allergies Essential (primary) hypertension Falls GERD (gastroesophageal reflux disease) Hearing deficit History of CVA (cerebrovascular accident) History of IBS Laceration Liver disease Lymphocytosis Osteoporosis Recurrent sinusitis Urinary incontinence Surgical History H/O section History of cervical spinal arthrodesis History of extraction of renal calculus History of hysterectomy History of nasal surgery History of splenectomy History of throat surgery Family History Mother Diabetes Colon cancer Heart disease Uterine cancer Rheumatic fever Rheumatoid arthritis Father Alcohol abuse Small cell lung cancer Cirrhosis Sister Breast cancer Social History Does the Patient have a Healthcare Proxy: Yes Does Patient have a DNR?: No Does Patient have a Living Will?: Yes highest education level completed: Associate degree: occupational, technical, vocational program Hx Recent Travel (where): No well-balanced diet: daily high-fat food intake: 0-1 times daily daily servings fruits/ve-4 daily servings of milk/calcium: 5 or more eating out: 1-3 times/week reads food labels: usually or always Smoking Status: Former smoker alcohol intake: current alcohol intake frequency: 0-2 drinks per day substance use type: does not use seatbelt 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 Patient was seen by this practitioner previously, and since that time reports has fell again and has injured left elbow again. Patient was seen after the second fall in the emergency room. She has been performing basic wound care at home with help of her daughter. She has been using mupirocin cream and bandaging wound with sterile dressings. Patient denies change in range ofmotion or function of arm. But reports that she feels she does need assistance with full dressing/wound. Review of Systems Const Reports as per HPI, Reports system reviewed and no additional complaints, except as documented, Denies body aches, Denies chills, Denies excessive sweating, Denies fatigue, Denies fever(s), Reports frequent falls (has already got pt ordered for gait), Denies headache(s), Denies increased appetite, Denies night sweats, Denies poor appetite, Denies weakness, Denies weight gain and Denies weight loss Eyes Reports as per HPI, Reports system reviewed and no additional complaints, except as documented, Denies change in vision, Denies decreased night vision, Denies eye discharge, Denies other visual disturbances, Reports requires corrective l enses, Denies seeing flashes, Denies photophobia and Denies spots in vision ENT Reports system reviewed and no additional complaints, except as documented, Reports as per HPI, Denies change in voice, Denies dysphagia, Denies vertigo, Denies dizziness, Denies headache(s), Denies lip swelling, Denies nasal congestion, Denies nasal trauma, Denies nose pain, Denies odynophagia, Denies tinnitus, Denies sore throat, Denies throat swelling and Denies tongue swelling Card Reports as per HPI, Reports system reviewed and no additional complaints, except as documented, Denies chest pain, Denies syncope, Denies edema, Denies irregular heart rhythm, Denies leg ulcers, Denies leg edema, Denies palpitations and Denies dyspnea Resp Reports as per HPI, Reports system reviewed and no additional complaints, except as documented, Denies chest congestion, Denies cough and Denies dyspnea GI Reports as per HPI, Reports system reviewed and no additional complaints, except as documented, Denies melena, Denies change in bowel habits, Denies constipation, Denies dysphagia, Denies diarrhea, Denies nausea, Denies odynophagia and Denies vomiting Genitourinary: Reports system reviewed and no additional complaints, except as documented and as perHPI; Denies abnormal vaginal bleeding, hematuria, difficulty voiding, nocturia, hot flashes, pelvic pain, flank pain, urinary frequency, urinary incontinence, urinary hesitancy, urinary urgency, vaginal discharge, vaginal dryness or vaginal odor Musc Reports system reviewed and no additional complaints, except as documented, Reports as per HPI, Denies back pain, Denies myalgias, Denies arthralgias, Denies joint swelling, Denies muscle weaknessand Denies numbness Skin/Breast Reports system reviewed and no additional complaints, except as documented, Reports as per HPI, Denies change in hair, Denies changing lesions, Denies dry skin, Denies hirsutism, Denies alopecia, Denies nail changes, Denies non-healing lesions, Denies photosensitivity, Denies rash, Denies sores,Denies unusual bruising and Reports wounds (left elbow abrasion/ecchymosis) Neuro Reports system reviewed and no additional complaints, except as documented, Reports as per HPI, Denies abnormal movements, Denies abnormal speech, Denies behavioral changes, Denies vertigo, Deniesdizziness, Denies syncope, Reports frequent falls (has already got pt ordered for gait), Denies headache(s), Denies localized weakness, Denies numbness, Denies other visual disturbances, Denies convulsions, Denies seizure- like activity, Denies paresthesias and Denies weakness Psych Reports system reviewed and no additional complaints, except as documented, Reports as per HPI, Denies anxiety, Denies behavioral changes, Denies confusion, Denies depression, Denies irritability,Denies mood swings, Denies hallucinations, Denies tactile hallucinations, Denies homicidal ideation and Denies suicidal ideation Endo Reports system reviewed and no additional complaints, except as documented, Reports as per HPI, Denies excessive sweating, Denies fatigue, Denies increase in ring/shoe/hat size and Denies palpitations Monster/Lymph Reports system reviewed and no additional complaints, except as documented, Reports as per HPI, Denies easy bleeding, Denies easy bruising and Denies lymphadenopathy Aller/Immun Denies lip swelling, Denies throat swelling and Denies tongue swelling Exam Const General: cooperative, comfortable and no acute distress Nutritional Appearance: overweight Orientation: alert, awake and oriented x3 [facility] Head: normal to inspection, normocephalic and atraumatic Ears: hearing grossly normal bilaterally, external ears normal, TM's normal bilaterally and EAC's normal General nose exam: external nose normal, nares normal, nasal mucous membranes and turbinates normal and septum normal Face and sinus: normal facial exam and face symmetric Mouth: oral mucosae normal, lip normal, tongue normal, oropharynx normal and moist mucous membranes Throat: posterior oropharynx normal and uvula midline Eyes Alignment and Position: alignment normal and position normal Periorbital: periorbital findings normal Eyelids: eyelids normal Conjunctivae: conjunctivae normal Sclera: sclerae normal Pupil s: PERRL and normal by confrontation EOM: EOM intact bilaterally Neck Neck: normal visual inspection, full ROM, no lymphadenopathy, trachea midline and supple Chest Chest: normal palpation of entire chest wall Resp Effort Inspection: able to speak in complete sentences, no audible wheezes, no cough, no grunting,not labored and no nasal flaring Auscultation: clear to auscultation bilaterally Cardio Rate: regular rate Rhythm: regular rhythm Heart Sounds: S1 normal, S2 normal, no click, no gallops, no murmurs and no rubs GI Inspection: Yes normal to inspection, No edema and Yes obesity Palpation: soft and no hepatosplenomegaly Auscultation: normal bowel sounds General: deferred Musc Cervical Spine: normal cervical lordosis and cervical ROM normal Thoracic/Lumbar Spine: thoracic and lumbar spine normal to inspection and thoraco-lumbar ROM normal Pelvis: no pain with anterior-posterior compression and no pain with lateral compression Skin Lesions: no lesions Rashes: no ash hes Trauma: abrasion (left outer elbow, egg sized) Wounds: no wounds Hair: normal Nails: normal Neuro General: patient alert, patient awake, patient oriented x3 and normal light touch, pain and propioception Cranial Nerves: CN's II-XII intact bilaterally Extrem General: normal to inspection, full ROM, capillary refill normal, no joint enlargement, no pedal edema and no calf tenderness Psych Appearance: grossly normal and well kempt Mental Status: mental status grossly normal Speech and Movement: speech and movement normal Mood: congruent mood Affect: normal affect Attitude: cooperative Thought Process: normal Thought Content: normal Insight: insight good Judgment: judgment good Assessment Plan Assessment Plan (1) Abrasion: Status: Acute Code(s): T14.8XXA - Other injury of unspecified body region, initial encounter SNOMED Code(s): 706334220 Category: Medical Plan - Magy Howard JEWEL LATHE OPERATOR: will place wound care referral. will not change/repeat antibiotic.Will order dressing supplies from[facility] Orders: Referrals: Wound Care Referral <Electronically signed by Magy Howard JEWEL LATHE OPERATOR> 07/04/20 1122 Name Value Range Interpretation Code Description Data Julianna rce(s) Supporting Document(s) ID Date Data Source [id number] 06/29/2020 11:11:00 AM [facility] Patient Name: [place] MCMANUS : 1950 Sex: F Pt Unit #: [id number] Location:[facility] Provider: Visit Date/Time: 06/29/20 Primary Insurance: MEDICARE [employer] Secondary Insurance: [employer] LIFE ADDENDUM Falls on anti-coagulation. Consult Physical Therapy. She is unsteady and very much needs to use a wheeled walker with seat and brakes. <Electronically signed by Keri Church DO> 07/02/20 1315 Intake Vital Signs 06/29/20 11:11 Current Height 4 ft 10 in Current Weight 156 lb Weight Measurement Method Standing Scale BMI 32.5 BP 138/78 Blood Pressure Location Lt radial Position Sitting Respiration 18 Pulse 74 Temp 97.6 F Pulse Oximetry (%) 98 Oxygen Delivery Method room air Intake Visit Reasons: ER Follow-up (Adult) Nurse Note: Fall on Sunday and went to the ER Is patient in pain?: Yes ((L) arm when only touched) Allergies codeine [CODEINE] Allergy (Unknown, Verified 06/27/20 17:23) diazepam [From VALIUM] Allergy (Unknown, Verified 06/27/20 17:23) flurazepam [From DALMANE] Allergy (Unknown, Verified 06/27/20 17:23) levofloxacin [From LEVAQUIN] Allergy (Unknown, Verified 06/27/20 17:23) meperidine [From DEMEROL] Allergy (Unknown, Verified 06/27/20 17:23) nitrofurantoin [From MACROBID] Allergy (Unknown, Verified 06/27/20 17:23) rabeprazole [From ACIPHEX] Allergy (Unknown, Verified 06/27/20 17:23) Sulfa (Sulfonamide Antibiotics) [SULFA (SULFONAMIDE ANTIBIOTICS)] Allergy (Unknown, Verified 06/27/20 17:23) Fall Risk History of falls: Yes (Fell on Sunday ) Ambulatory Aid:: None Gait/Transferring:: Normal Medications:: Antihypertensives HIV Testing Offer - ages 13-64 Requirement for HIV testing offer been met?: Not in age range Coronavirus Screening Screening Have you traveled outside of [facility] or [facility] in the last 14 days.: No Has patient experienced coronavirus symptoms: No PFSH Medical History Arthritis Cavernoma Diabetes mellitus type 2 in obese Environmental allergies Essential (primary) hypertension GERD (gastroesophageal reflux disease) Hearing deficit History of CVA (cerebrovascular accident) History of IBS Laceration Liver disease Lymphocytosis Osteoporosis Recurrent sinusitis Urinary incontinence Surgical History H/O section History of cervical spinal arthr odesis History of extraction of renal calculus History of hysterectomy History of nasal surgery History of splenectomy History of throat surgery Family History Mother Diabetes Colon cancer Heart disease Uterine cancer Rheumatic fever Rheumatoid arthritis Father Alcohol abuse Small cell lung cancer Cirrhosis Sister Breast cancer Social History Does the Patient have a Healthcare Proxy: Yes Does Patient have a DNR?: No Does Patient have a Living Will?: Yes highest education level completed: Associate degree: occupational, technical, vocational program Hx Recent Travel (where): No well-balanced diet: daily high-fat food intake: 0-1 times daily daily servings fruits/ve-4 daily servings of milk/calcium: 5 or more eating out: 1-3 times/week reads food labels: usually or always Smoking Status: Former smoker alcohol intake: current alcohol intake frequency: 0-2 drinks per day substance use type: does not use seatbelt 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 The note states she slipped on a wet leaf, fell foward and hit her head and nose. She is on Coumadinfor anti-phospholipid syndrome with INR goal of 2.5-3.5 set by before she became my patient. She has been falling and somewhat unsteady. She has been very reluctant to use any walking devices suchas cane or walker. CT head demonstrated some calcification of the daniel. Dr. Varela from the ER recommended MRI brain. Exam Skin Other: L elbow with large crust, no induration Assessment Plan Assessment Plan (1) Falls: Status: Acute Code(s): W19.XXXA - Unspecified fall, initial encounter SNOMED Code(s): 7609501 Category: Medical Plan - Keri Church, DO: F/u ER for L elbow contusion, wound, bleeding. 40 mins removing bandage as she is very high risk tore-bleed if any clot was broken. Washed wound with soap and water. Bacitracin ointment, Telfa, raparound gauze, then coban. F/u 2 days with ARY Howard for wound care and check. Falls. Consult Physical Therapy. Use wheeled walker at home. Abnormal CT demonstrating some calcification of daniel. They do not want to see Neurology/[place]. MRI done there I believe. Dr. Chappell/RAEANN gave injection and headaches resolved. (2) Hospital discharge follow-up: Code(s): Z09 - Encounter for follow-up examination after completed treatment for conditions other than malignant neoplasm (3) Left elbow contusion: Code(s): S50.02XA - Contusion of left elbow, initial encounter <Electronically signed by Keri Church DO> 06/29/20 1215 Name Value Range Interpretation Code Description Data Julianna rce(s) Supporting Document(s) ID Date Data Source [id number] 06/27/2020 06:56:00 PM EST [facility] [address] [place] [address] [phone] NAME SEX PT STATUS ACCOUNT NUMBER [place] MCMANUS REG ER [id number] ORDERING PHYSICIAN LOCATION MEDICAL RECORD NO. Apollo Varela MD ER [id number] ATTENDING PHYSICIAN DATE OF DATE OF EXAM/TIME RanjitKeri moon 1950 06/27/201816 TYPE / EXAM XRAY HIP [...] 06/27/201855 Date Time CC: Wild Cueva MD; Keri Church DO Techn: MORSA Trans Dt/Tm: Trans by: DT Prt Dt/Tm: [phone]: Total DLP = 0.00 mGy-cm Fluoroscopy Time (in secs): Name Value Range Interpretation Code Description Data Julianna rce(s) Supporting Document(s) ID Date Data Source [id number] 06/27/2020 06:55:00 PM EST [facility] [address] [place] [address] [phone] NAME SEX PT STATUS ACCOUNT NUMBER [place]CM[place] REG ER [id number] ORDERING PHYSICIAN LOCATION MEDICAL RECORD NO. Apollo Varela MD ER [id number] ATTENDING PHYSICIAN DATE OF DATE OF EXAM/TIME Keri Church DO 1950 06/27/201816 TYPE / EXAM Xray Elbow [...] By Wild Cueva MD on 06/27/201854 Date T tanvir CC: Wild Cueva MD; Keri Church DO Techn: MORSA Trans Dt/Tm: Trans by: DT Prt Dt/Tm: [phone]: Total DLP = 0.00 mGy-cm Fluoroscopy Time (in secs): Name Value Range Interpretation Code Description Data Julianna rce(s) Supporting Document(s) ID Date Data Source [id number] 06/27/2020 06:37:00 [place] [address] [phone] NAME SEX PT STATUS ACCOUNT NUMBER [place] MCMANUS [facility] ER [id number] ORDERING PHYSICIAN LOCATION MEDICAL RECORD NO. Apollo Varela MD ER [id number] ATTENDING PHYSICIAN DATE OF DATE OF EXAM/TIME Keri Church DO 1950 06/27/201816 TYPE / EXAM [...] 06/27/201836 Date Time CC: Oneyda Mosqueda MD; Keri Church DO Techn: MORSA Trans Dt/Tm: Trans by: DT Prt Dt/Tm: : Total DLP = 56.00 mGy-cm : Total Radiation Dose = 0.1736 mSv Lifetime Dose: 4.5849 mSv Name Value Range Interpretation Code Description Data Julianna rce(s) Supporting Document(s) ID Date Data Source [id number] 06/27/2020 06:33:00 PM [facility] [address] [place], [place] [id number] [phone] NAME SEX PT STATUS ACCOUNT NUMBER [place] MCMAN[place] REG ER [id number] ORDERING PHYSICIAN LOCATION MEDICAL RECORD NO. Apollo Varela MD ER [id number] ATTENDING PHYSICIAN DATE OF DATE OF EXAM/TIME Keri Church DO 1950 06/27/201816 TYPE / EXAM [...] neoplastic pathology felt to be less likely. N evertheless consider follow-up study of the head with MRI with and without gadolinium for further characterization. Automatic exposure control was used as a dose lowering technique. REPORT SIGNATURE ON FILE 06/27/2020 (18:33 Eastern Time ) Signed by: Oneyda Mosqueda M.D. Reported By Oneyda Mosqueda MD on 06/27/201832 Signed By Oneyda Mosqueda MD on 06/27/201832 Date Time CC: Oneyda Mosqueda MD; Keri Church DO Techn: LEO Trans Dt/Tm: Trans by: DT Prt Dt/Tm: : Total DLP = 800.00 mGy-cm : Total Radiation Dose = 2.4800 mSv Lifetime Dose: 4.5849 mSv Name Value Range Interpretation Code Description Data Julianna rce(s) Supporting Document(s) ID Date Data Source [id number] 06/27/2020 06:16:00 PM [facility] ED Physician Documentation NAME: [place] MCMANUS : 1950 AGE: 69 MR#: [id number] SERVICE DATE: 06/27/[address]: Apollo Varela MD PRIMARY CARE DR: Keri Church DO ROOM#: Musculoskeletal General Chief Complaint: Fall injury Stated Complaint: FALL Time Seen by Provider: 06/27/20 17:15 Source: patient and family History of present illness HPI Narrative:: 69-year-old white female complaining of and fell on a wet leaf just prior to ER visit. Patient states she fell forward hitting her forehead and nose. She denies any loss of consciousness. Neck pain or new numbness or weakness. There is no chest pain difficulty breathing no abdominal pain no nausea or vomiting. Patient also complaining of pain in left elbow and right hip. Patient recently had a fall with injury to left elbow and had suffered a skin tear' patient states at present her gait is normal Redness?: No Deformity?: No Swelling?: No Ecchymosis?: No Shortening of limb?: No Distal CMS intact?: Yes Open Fracture?: No Numbness or tingling?: No Pain Pain Site Observation: Forehead. Nose. Left elbow left hip Past Medical History Past Medical History: Nursing Past Medical History Has Been Reviewed Allergies/Home Meds Allergies Allergy/AdvReac Type Severity Reaction Status Date / Time codeine [CODEINE] Allergy Unknown Verified 06/27/20 17:23 diazepam [From VALIUM] Allergy Unknown Verified 06/27/20 17:23 flurazepam [From DALMANE] Allergy Unknown Verified 06/27/20 17:23 levofloxacin [From LEVAQUIN] Allergy Unknown Verified 06/27/20 17:23 meperidine [From DEMEROL] Allergy Unknown Verified 06/27/20 17:23 nitrofurantoin Allergy Unknown Verified 06/27/20 17:23 [From MACROBID] rabeprazole [From ACIPHEX] Allergy Unknown Verified 06/27/20 17:23 Sulfa (Sulfonamide Allergy Unknown Verified 06/27/20 17:23 Antibiotics) [SULFA (SULFONAMIDE ANTIBIOTICS)] Home Medications Medication Instructions Recorded Confirmed Last Taken Type aspirin 81 mg tablet,delayed 81 mg PO QDAY 02/18/19 06/27/20 Unknown History release acetaminophen 325 mg tablet 350 - 650 mg PO HS #180 tab 03/10/19 06/27/20 Unknown Rx docusate sodium 100 mg capsule 100 mg PO QDAY #90 cap 04/21/19 06/27/20 Unknown Rx multivitamin 1 tab PO QDAY #90 tab 04/21/19 06/27/20 Unknown Rx calcium carbonate 500 mg (1,250 1 tab PO QDAY #90 tab 07/15/19 06/27/20 Unknown Rx mg)-vitamin D3 200 unit tablet ascorbate calcium (vitamin C) 500 500 mg PO QDAY #90 tab 09/25/19 06/27/20 Unknown Rx mg tablet lisinopril 20 mg tablet 20 mg PO QDAY #90 tab 10/21/19 06/27/20 Unknown Rx pantoprazole 40 mg tablet,delayed 40 mg PO QDAY #90 tab 10/21/19 06/27/20 Unknown Rx release gabapentin 100 mg capsule 100 mg PO BID #180 cap 12/25/19 06/27/20 Unknown Rx gabapentin 400 mg capsule 400 mg PO QDAY #90 cap 12/25/19 06/27/20 Unknown Rx warfarin 4 mg tablet 4 mg PO DAILY #90 tab 12/25/19 06/27/20 Unknown Rx warfarin 1 mg tablet 1 mg PO DAILY #90 tab 12/26/19 06/27/20 Unknown Rx warfarin 5 mg tablet 5 mg PO QDAY #90 tab 03/22/20 06/27/20 Unknown Rx cyclosporine 0.05 % eye drops in a 1 drops OU Q12H #60 each 04/19/20 06/27/20 Unknown Rx dropperette magnesium oxide 400 mg PO QDAY #90 tab 04/19/20 06/27/20 Unknown Rx cholecalciferol (vitamin D3) 125 125 mcg PO QDAY #90 cap 06/14/20 06/27/20 Unknown Rx mcg (5,000 unit) capsule duloxetine 30 mg capsule,delayed 30 mg PO QDAY #90 cap 06/14/20 06/27/20 Unknown Rx release fexofenadine 180 mg tablet 180 mg PO Q24H #90 tab 06/14/20 06/27/20 Unknown Rx hydroxychloroquine 200 mg tablet 200 mg PO BID #180 tab 06/14/20 06/27/20 Unknown Rx nadolol 20 mg tablet 20 mg PO QDAY #90 tab 06/14/20 06/27/20 Unknown Rx potassium citrate 5 mEq (540 mg) 5 meq PO QDAY #90 tab 06/14/20 06/27/20 Unknown Rx tablet,extended release rifaximin 550 mg tablet 550 mg PO DAILY #90 tab 06/14/20 06/27/20 Unknown Rx adhesive bandage 4" X 5" #200 ea 06/24/20 06/24/20 Unknown Rx adhesive tape #1 ea 06/24/20 06/24/20 Unknown Rx amoxicillin 875 mg-potassium 1 tab PO BID #14 tab 06/24/20 06/24/20 Unknown Rx clavulanate 125 mg tablet gauze bandage #20 ea 06/24/20 06/24/20 Unknown Rx mupirocin 2 % topical ointment 1 applic TOPICAL BID #22 gm 06/24/20 06/24/20 Unknown Rx Medication list updated and reviewed:: Yes PMH (from Triage) Patient Medical History PMH Reviewed/Updated as Needed: Yes PMH/PSH from Triage: Medical History (Updated 06/14/20 @ 11:05 by Keri Church DO) Arthritis (Medical) M19.90 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 Diabetes mellitus type 2 in obese (Medical) E11.69, E66.9 Environmental allergies (Medical) Z91.09 Essential (primary) hypertension (Medical) I10 GERD (gastroesophageal reflux disease) (Medical) K21.9 Hearing deficit (Medical) H91.90 History of CVA (cerebrovascular accident) (Medical) Z86.73 History of IBS (Medical) Z87.19 Laceration (Medical) Liver disease (Medical) K76.9 Lymphocytosis (Medical) D72.820 Osteoporosis (Medical) M81.0 Recurrent sinusitis (Medical) J32.9 Urinary incontinence (Medical) R32 Surgical History (Updated 12/16/19 @ 17:53 by Keri Church DO) H/O section (Surgical) Z98.891 History of cervical spinal arthrodesis (Surgical) Z98.1 History of extraction of renal calculus (Surgical) Z98.890, Z87.442 History of hysterectomy (Surgical) Z90.710 History of nasal surgery (Surgical) Z98.890 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 History of throat surgery (Surgical) Z98.890 Female History LMP:: Menopause Hx Drug Resistant Infections Hx MRSA: (Methicillin-resistant Staphylococcus aureus): No Hx VRE (Vancomycin-resistant enterococci): No Hx C.Diff: No Hx CRKP: No Hx Other Resistant Infection?: No Isolation: Standard precautions Hx Recent Travel Out of the country within 10 days (where): No Hx Fever: No Hx Fever with a rash?: No Nurse screening for coronavirus: Recent Travel outside the No country (where) Has patient experienced No coronavirus symptoms Social History Does patient have suicidal/homicidal thoughts or ideation?: No Are you in a relationship with/Does anyone hit you, yell/swear at you, steal from you?: No Substance Use Second Hand Smoke Exposure: No Smoking Status: Former smoker Tobacco Use Hx Chewing Tobacco Use: No Vaccination History Hx/Date of Tetanus, Diphtheria Vaccination: Yes Hx/Date of Influenza Vaccination: Yes Hx/Date of Pneumococcal Vaccination: Yes Immunizations Up to Date: Yes ROS Review of Systems Constitutional: Denies fever and chills Eyes: Denies vision change ENT: Reports nasal pain; Denies mouth pain Respiratory: Denies cough, sputum and SOB Cardiovascular: Denies chest pain, palpitations, light headedness, dyspnea on exertion and syncope Gastrointestinal: Reports No Symptoms/Complaints Musculoskeletal: Reports arm pain and joint pain (Left hip); Denies neck pain and back pain Neurologic: Denies weakness, numbness, headache, incoordination, change in speech, confusion, dizziness, lightheadedness, loss of consciousness and memory loss Psychiatric: Reports No Symptoms/Complaints Hematological/Lymphatic: Reports easy bleeding and easy bruising Allergic/Immunologic: Reports No Symptoms/Complaints [facility] Medical History Arthritis Cavernoma Diabetes mellitus type 2 in obese Environmental allergies Essential (primary) hypertension GERD (gastroesophageal reflux disease) Hearing deficit History of CVA (cerebrovascular accident) History of IBS Laceration Liver disease Lymphocytosis Osteoporosis Recurrent sinusitis Urinary incontinence Surgical History H/O section History of cervical spinal arthrodesis History of extraction of renal calculus History of hysterectomy History of nasal surgery History of splenectomy History of throat surgery Family History Mother Diabetes Colon cancer Heart disease Uterine cancer Rheumatic fever Rheumatoid arthritis Father Alcohol abuse Small cell lung cancer Cirrhosis Sister Breast cancer Social History Does the Patient have a Healthcare Proxy: Yes Does Patient have a DNR?: No Does Patient have a Living Will?: Yes highest education level completed: Associate degree: occupational, technical, vocational program Hx Recent Travel (where): No well-balanced diet: daily high-fat food intake: 0-1 times daily daily servings fruits/ve-4 daily servings of milk/calcium: 5 or more eating out: 1-3 times/week reads food labels: usually or always Smoking Status: Former smoker alcohol intake: current alcohol intake frequency: 0-2 drinks per day substance use type: does not use seatbelt 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 water heater temp set < 120 deg: Yes working smoke detector in home: Yes fire extinguisher in home: Yes carbon monox detector in home: No firearms in home: No victim of physical abuse: No victim of emotional abuse: No Sickle cell No Physical Exam General Physical Exam Narrative: 69-year-old obese female no acute distress Limitations: no limitations General appearance: alert and in no apparent distress Head Head exam: Present normocephalic and other (Nose and bilateral maxillary area slight ecchymosis) Eye Eye exam: Present normal apperance, PERRL and EOMI ENT ENT exam: Present normal orophraynx and mucous membranes moist Neck Neck exam: Present normal inspection, full ROM and supple; Absent tenderness Respiratory Respiratory exam: Present normal lung sounds bilaterally; Absent respiratory distress and chest walltenderness Cardiovascular Cardiovascular Exam: Present regular rate, normal rhythm and no murmur GI/Abdominal GI/Abdominal exam: Present soft; Absent distended, tenderness, guarding, rebound and rigid Extremities Exam Extremities exam: Present other (Mild tenderness greater trochanter left hip leg length equal normalrange of motion of hip. Left elbow old skin tear no signs of infection no active bleeding slight tenderness laterally. Left lateral thigh large hematoma which family states has been there for several weeks from last fall. Tender ) Back Exam Back exam: Present normal inspection; Absent tenderness and vertebral tenderness Neurological Exam Neurological exam: Present alert and oriented X3 Psychiatric Psychiatric exam: Present normal affect and normal mood Vital Signs Vital Signs: Vital Signs 06/27/20 17:06 Temperature 98.1 F Pulse Rate 80 Respiratory Rate 20 Blood Pressure 117/80 O2 Sat by Pulse Oximetry 98 MDM (comprehensive) Radiology Data Radiology re sults: report reviewed Radiology impressions: CT report reviewed no fractures calcification of daniel MRI recommended Plain films no fractures Medical Decision Making Free Text/Narative:: 69-year-old white female with fall with injury to bridge of nose face left elbow left hip Patient on Coumadin pain x- rays of head and facial films Also will obtain plain films of left elbow left hip Patient has good range of motion of left hip and normal leg l ength doubt any fracture Orders written for patient staff to clean left elbow skin tear Follow-up CT maxillofacial negative CT head no bleed or skull fractures scheduled in the daniel recommend follow-up MRI Plain films pending Follow-up left elbow left hip pelvis films report reviewed no fractures Discharge Plan Admission/Discharge Dx Primary DC Diagnosis: Facial contusion, head injury, contusion left hip, skin tear left elbow ED Provider: Apollo Varela ED Status: Ready for Discharge Time Seen by Provider: 06/27/20 17:15 Triaged At: 06/27/20 17:06 Condition Condition: Stable Discharge Detail Disposition: Home, Self-Care Med Rec New Prescriptions: No Action aspirin [Adult Aspirin Regimen] 81 mg tablet,delayed release (DR/EC) 81 mg PO QDAY RF: 0 lisinopril 20 mg tablet 20 mg PO QDAY Qty: 90 RF: 3 pantoprazole [Protonix] 40 mg tablet,delayed release (DR/EC) 40 mg PO QDAY Qty: 90 RF: 3 duloxetine [Cymbalta] 30 mg capsule,delayed release(DR/EC) 30 mg PO QDAY Qty: 90 RF: 4 fexofenadine 180 mg tablet 180 mg PO Q24H Qty: 90 RF: 3 hydroxychloroquine 200 mg tablet 200 mg PO BID Qty: 180 RF: 3 nadolol 20 mg tablet 20 mg PO QDAY Qty: 90 RF: 3 potassium citrate 5 mEq (540 mg) tablet extended release 5 meq PO QDAY Qty: 90 RF: 3 rifaximin 550 mg tablet 550 mg PO DAILY Qty: 90 RF: 4 mupirocin 2 % ointment 1 applic topical BID Qty: 22 RF: 1 (DME) Telfa AMD 4 X 5 " bandage See Rx Instructions .ROUTE .MEDSUPPLY Qty: 200 RF: 0 (DME) gauze bandage [Band-Aid Rolled Gauze] 2 X 2.5 "-yard bandage See Rx Instructions .ROUTE .MEDSUPPLY Qty: 20 RF: 3 (DME) adhesive tape 1 X 10 "- yard tape See Rx Instructions .ROUTE .MEDSUPPLY Qty: 1 RF: 2 amoxicillin-pot clavulanate 875-125 mg tablet 1 tab PO BID Qty: 14 RF: 0 acetaminophen [Tylenol] 325 mg tablet 350 - 650 mg PO HS Qty: 180 RF: 3 docusate sodium [Colace] 100 mg capsule 100 mg PO QDAY Qty: 90 RF: 4 multivitamin Tablet 1 tab PO QDAY Qty: 90 RF: 4 calcium carbonate- vitamin D3 500 mg(1,250mg) -200 unit tablet 1 tab PO QDAY Qty: 90 RF: 3 ascorbate calcium (vitamin C) 500 mg tablet 500 mg PO QDAY Qty: 90 RF: 3 warfarin [Coumadin] 4 mg tablet 4 mg PO DAILY Qty: 90 RF: 3 gabapentin 100 mg capsule 100 mg PO BID Qty: 180 RF: 3 gabapentin 400 mg capsule 400 mg PO QDAY Qty: 90 RF: 3 warfarin [Coumadin] 1 mg tablet 1 mg PO DAILY Qty: 90 RF: 3 warfarin 5 mg tablet 5 mg PO QDAY Qty: 90 RF: 3 magnesium oxide 400 mg magnesium tablet 400 mg PO QDAY Qty: 90 RF: 3 Restasis 0.05 % dropperette 1 drops OU Q12H Qty: 60 RF: 1 cholecalciferol (vitamin D3) 125 mcg (5,000 unit) capsule 125 mcg PO QDAY Qty: 90 RF: 3 Discharge Education Printouts: Contusion in Adults (ED), Skin Tear (ED) Medications Medication reconciliation performed by provider at dis charge: Yes Follow Up Care/Instructions Diet/Activity/Wound Care..: Your CAT scan and x-rays do not reveal any fractures The CT scan of your head reveals some calcification of the daniel recommend an MRI as an outpatient discussed this finding with your doctor May take Tylenol as directed for pain Follow-up your doctor within 72 hours for reevaluation *Discharge Patient* Discharge Orders: Discharge Order (Routine); Ordered 06/27/20 Ordered By: Apollo Varela Report Signers: <Electronically signed by Apollo Varela MD> Apollo Varela MD 06/27/20 192 Apollo Varela MD SIGNATURE DA Report Cosigners: D: DIBMI 06/27/201815 T: DIBMI 06/27/201815 CC: Keri Church DO Name Value Range Interpretation Code Description Data Julianna rce(s) Supporting Document(s) ID Date Data Source [id number] 06/24/2020 11:43:00 AM [facility] Patient Name: [place] MCMANUS : 1950 Sex: F Pt Unit #: [id number] Location:[facility] Provider: Visit Date/Time: 06/24/20 Primary Insurance: MEDICARE [employer] Secondary Insurance: FOR LIFE Intake Vital Signs 06/24/20 11:43 Current Height 4 ft 10 in Current Weight 158 lb Weight Measurement Method Standing Scale BMI 33.0 BP 110/62 Blood Pressure Location Rt brachial Position Sitting Respiration 18 Pulse 78 Pulse Strength Normal Pulse Source Pulse Oximeter Temp 97.3 F L Temp Source Tympanic Pulse Oximetry (%) 98 Oxygen Delivery Method room air Intake Visit Reasons: stitch removal Nurse Note: 69 year old female presents today for suture removal. Patient was seen in the ER on 06/15/20 after she slipped and f ell on her porch when her dog pulled to hard on the leash. Patient received a wound on her Left arm contusion and hematoma (puncture wound to her Left elbow), patient also fell on her Left hip. Patient has 1 suture in the Left elbow area. Patient notes she has been cleansing with a wound shafting cleaner antibiotic spray 1-2 times a day. Patient notes her hip is still sore and her arm but overall she is feeling better. 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 Accompanied by: Self / Same as Patient Is patient in pain?: Yes (Left elbow and Left hip pain) Pain scale (1- 10): 3 Allergies codeine [CODEINE] Allergy (Unknown, Verified 06/27/20 17:23) diazepam [From VALIUM] Allergy (Unknown, Verified 06/27/20 17:23) flurazepam [From DALMANE] Allergy (Unknown, Verified 06/27/20 17:23) levofloxacin [From LEVAQUIN] Allergy (Unknown, Verified 06/27/20 17:23) meperidine [From DEMEROL] Allergy (Unknown, Verified 06/27/20 17:23) nitrofurantoin [From MACROBID] Allergy (Unknown, Verified 06/27/20 17:23) rabeprazole [From ACIPHEX] Allergy (Unknown, Verified 06/27/20 17:) Sulfa (Sulfonamide Antibiotics) [SULFA (SULFONAMIDE ANTIBIOTICS)] Allergy (Unknown, Verified 06/27/20 17:23) Post menopausal: Yes Fall Risk Ambulatory Aid:: None Gait/Transferring:: Normal Medications:: No High Risk Medications HIV Testing Offer - ages 13-64 HIV testing Offer: No Requirement for HIV testing offer been met?: Not in age range Hep C Testing Offered: Yes Hep C Requirement met: Refuses today SBIRT Annual Questionnaire Are you currently in recovery for alcohol or substance use?: No How many times in the past year have you had 4 or more drinks in a day?: None How many times in the past year have you used a recreational drug or used a prescription medication for nonmedical reasons?: None Do you need a note to return Do you need a note to return to daycare/school/sports/work: No Coronavirus Screening Screening Have you traveled outside of [facility] or [facility] in the last 14 days.: No Has patient experienced coronavirus symptoms: No [facility] Medical History Arthritis Cavernoma Diabetes mellitus type 2 in obese Environmental allergies Essential (primary) hypertension GERD (gastroesophageal reflux disease) Hearing deficit History of CVA (cerebrovascular accident) History of IBS Laceration Liver disease Lymphocytosis Osteoporosis Recurrent sinusitis Urinary incontinence Surgical History H/O section History of cervical spinal arthrodesis History of extraction of renal calculus History of hysterectomy History of nasal surgery History of splenectomy History of throat surgery Family History Mother Diabetes Colon cancer Heart disease Uterine cancer Rheumatic fever Rheumatoid arthritis Father Alcohol abuse Small cell lung cancer Cirrhosis Sister Breast cancer Social History Does the Patient have a Healthcare Proxy: Yes Does Patient have a DNR?: No Does Patient have a Living Will?: Yes highest education level completed: Associate degree: occupational, technical, vocational program Hx Recent Travel (where): No well-balanced diet: daily high-fat food intake: 0-1 times daily daily servings fruits/ve-4 daily servings of milk/calcium: 5 or more eating out: 1-3 times/week reads food labels: usually or always Smoking Status: Former smoker alcohol intake: current alcohol intake frequency: 0-2 drinks per day substance use type: does not use seatbelt 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 She reports that she is doing better, and basically, needs suture removal. Review of Systems Const Reports as per HPI, Reports system reviewed and no additional complaints, except as documented, Denies body aches, Denies chills, Denies excessive sweating, Denies fatigue, Denies fever(s), Deniesfrequent falls, Denies headache(s), Denies increased appetite, Denies night sweats, Denies poor appetite, Denies weakness, Denies weight gain and Denies weight loss Eyes Reports as per HPI, Reports system reviewed and no additional complaints, except as documented, Denies change in vision, Denies decreased night vision, Denies eye discharge, Denies other visual disturbances, Reports requires corrective lenses, Denies seeing flashes, Denies photophobia and Denies spots in vision ENT Reports system reviewed and no additional complaints, except as documented, Reports as per HPI, Denies change in voice, Denies dysphagia, Denies vertigo, Denies dizziness, Denies headache(s), Denies lip swelling, Denies nasal con gestion, Denies nasal trauma, Denies nose pain, Denies odynophagia, Denies tinnitus, Denies sore throat, Denies throat swelling and Denies tongue swelling Card Reports as per HPI, Reports system reviewed and no additional complaints, except as documented, Denies chest pain, Denies syncope, Denies edema, Denies irregular heart rhythm, Denies leg ulcers, Denies leg edema, Denies palpitations and Denies dyspnea Resp Reports as per HPI, Reports system reviewed and no additional complaints, except as documented, Denies chest congestion, Denies cough and Denies dyspnea GI Reports as per HPI, Reports system reviewed and no additional complaints, except as documented, Denies melena, Denies change in bowel habits, Denies constipation, Denies dysphagia, Denies diarrhea, Denies nausea, Denies odynophagia and Denies vomiting Genitourinary: Reports system reviewed and no additional complaints, except as documented and as perHPI; Denies abnormal vaginal bleeding, hematuria, difficulty voiding, noct uria, hot flashes, pelvic pain, flank pain, urinary frequency, urinary incontinence, urinary hesitancy, urinary urgency, vaginal discharge, vaginal dryness or vaginal odor Musc Reports system reviewed and no additional complaints, except as documented, Reports as per HPI, Denies back pain, Denies myalgias, Denies arthralgias, Denies joint swelling, Denies muscle weaknessand Denies numbness Skin/Breast Reports system reviewed and no additional complaints, except as documented, Reports as per HPI, Denies change in hair, Denies changing lesions, Denies dry skin, Denies hirsutism, Denies alopecia, D enies nail changes, Denies non-healing lesions, Denies photosensitivity, Denies rash, Denies sores,Denies unusual bruising and Reports wounds (egg sized wound to left elbow. Scabbed and without noted drainage) Neuro Reports system reviewed and no additional complaints, except as documented, Reports as per HPI, Denies abnormal movements, Denies abnormal speech, Denies behavioral changes, Denies vertigo, Deniesdizziness, Denies syncope, Denies frequent falls, Denies headache(s), Denies localized weakness, Denies numbness, Denies other visual disturbances, Denies convulsions, Denies seizure-like activity,Denies paresthesias and Denies weakness Psych Reports system reviewed and no additional complaints, except as documented, Reports as per HPI, Denies anxiety, Denies behavioral changes, Denies confusion, Denies depression, Denies irritability,Denies mood swings, Denies hallucinations, Denies tactile hallucinations, Denies homicidal ideation and Denies suicidal ideation Endo Reports system reviewed and no additional complaints, except as documented, Reports as per HPI, Denies excessive sweating, Denies fatigue, Denies increase in ring/shoe/hat size and Denies palpitations Monster/Lymph Reports system reviewed and no additional complaints, except as documented, Reports as per HPI, Denies easy bleeding, Denies easy bruising and Denies lymphadenopathy Aller/Immun Denies lip swelling, Denies throat swelling and Denies tongue swelling Exam Const General: cooperative, comfortable and no acute distress Nutritional Appearance: overweight Orientation: alert, awake and oriented x3 HENMT Head: normal to inspection, normocephalic and atraumatic Ears: hearing grossly normal bilaterally, external ears normal, TM's normal bilaterally and EAC's normal General nose exam: external nose normal, nares normal, nasal mucous membranes and turbinates normal and septum normal Face and sinus: normal facial exam and face symmetric Mouth: oral mucosae normal, lip normal, tongue normal, oropharynx normal and moist mucous membranes Throat: posterior oropharynx normal and uvula midline Eyes Alignment and Position: alignment normal and position normal Periorbital: periorbital findings normal Eyelids: eyelids normal Conjunctivae: conjunctivae normal Sclera: sclerae normal Pupils: PERRL and normal by confrontation EOM: EOM intact bilaterally Neck Neck: normal visual inspection, full ROM, no lymphadenopathy, trachea midline and supple Chest Chest: normal palpation of entire chest wall Resp Effort Inspection: able to speak in complete sentences, no audible wheezes, no cough, no grunting,not labored and no nasal flaring Auscultation: clear to auscultation bilaterally Cardio Rate: regular rate Rhythm: regular rhythm Heart Sounds: S1 normal, S2 normal, no click, no gallops, no murmurs and no rubs GI Inspection: Yes normal to inspection, No edema and Yes obesity Palpation: soft and no hepatosplenomegaly Auscultation: normal bowel sounds Musc Cervical Spine: normal cervical lordosis and cervical ROM normal Thoracic/Lumbar Spine: thoracic and lumbar spine normal to inspection and thoraco-lumbar ROM normal Pelvis: no pain with anterior-posterior compression and no pain with lateral compression Skin Lesions: no lesions Rashes: no rashes Trauma: abrasion (left outer elbow, egg sized) Wounds: no wounds Hair: normal Nails: normal Neuro General: patient alert, patient awake, patient oriented x3 and normal light touch, pain and propioception Cranial Nerves: CN's II-XII intact bilaterally Extrem General: normal to inspection, full ROM, capillary refill normal, no joint enlargement, no pedal edema and no calf tenderness Psych Appearance: grossly normal and well kempt Mental Status: mental status grossly normal Speech and Movement: speech and movement normal Mood: congruent mood Affect: normal affect Attitude: cooperative Thought Process: normal Thought Content: normal Insight: insight good Judgment: judgment good Office Procedures Suture/Staple Removal Suture Removal Type: Sutures Location: top of wound to left elbow Number of sutures/carlo: 1 Suture/Staple Assessment: Dry/intact, swelling and other (scabbed wound) Care After Sutures Removed: Wound Cleansed, Bandage applied and Other (muporicin) Assessment Plan Assessment Plan (1) Abrasion: Status: Acute Code(s): T14.8XXA - Other injury of unspecified body region, initial encounter SNOMED Code(s): 565672577 Category: Medical Plan - Magy Howard NP: abrasion to left outer elbow with scab in place. Suture removed. Area cleaned and dressed with sterile dressing. Will send antibiotic and muporicin to the pharmacy with dressing supplies. Follow up in the office in 1 week if not improved. Orders Other Medications: New: mupirocin 2% apply to outer elbow bid x 1 week 1 applic topical BID 22 grams 1RF adhesive bandage (Telfa AMD) As directed- apply to wound bid until healed with ointment 200 ea 0RF gauze bandage (Band-Aid Rolled Gauze) As directed-apply to affected area bid until healed 20 ea 3RF adhesive tape As directed 1 ea 2RF amoxicillin-pot clavulanate 875-125 mg 1 tab PO BID 14 tabs 0RF <Electronically signed by Magy Howard JEWEL LATHE OPERATOR> 06/27/201944 Name Value Range Interpretation Code Description Data Julianna rce(s) Supporting Document(s) ID Date Data Source [id number] 06/15/2020 01:01:00 PM [place] [address] [place] [address] [phone] NAME SEX PT STATUS ACCOUNT NUMBER [place] MCMAN[place] REG ER [id number] ORDERING PHYSICIAN LOCATION MEDICAL RECORD NO. Apollo Valente MD ER [id number] ATTENDING PHYSICIAN DATE OF DATE OF EXAM/TIME Keri Church DO 1950 06/15/201238 TYPE / EXAM Xray Elbow AP/LAT LT [...] 1302 Date Time CC: Dao Hickman DO; Keri Church DO Techn: EBEBR Trans Dt/Tm: Trans by: DT Prt Dt/Tm: [id number]: Total DLP = 0.00 mGy-cm Fluoroscopy Time (in secs): Name Value Range Interpretation Code Description Data Julianna rce(s) Supporting Document(s) ID Date Data Source [id number] 06/15/2020 12:58:00 PM [facility] [place] [id number] [place] [address] [phone] NAME SEX PT STATUS ACCOUNT NUMBER [place] MCM[place] REG ER [id number] ORDERING PHYSICIAN LOCATION MEDICAL RECORD NO. Apollo Valente MD ER [id number] ATTENDING PHYSICIAN DATE OF DATE OF EXAM/TIME Keri Church DO 1950 06/15/20 / 1157 TYPE / EXAM XRAY HIP LT 2-3 [...] left inferior pubic ramus fracture. No definite displacedleft femoral fracture. Note: nondisplaced/minimally displaced hip and pelvic fractures are often not visible on x-ray. If there is clinical concern or severe pain/inability to weight bear, MR is recommended for further evaluation before ambulation is attempted. Reported By Dao Hickman DO on 06/15/20 1258 Signed By Dao Hickman DO on 06/15/20 1300 Date Time CC: Dao Hickman DO; Keri Church DO Techn: EBEBR Trans Dt/Tm: Trans by: DT Prt Dt/Tm: [id number]: Total DLP = 0.00 mGy-cm Fluoroscopy Time (in secs): Name Value Range Interpretation Code Description Data Julianna rce(s) Supporting Document(s) ID Date Data Source [id number] 06/15/2020 11:57:00 AM [facility] ED Physician Documentation NAME: [place] MCMANUS Lloyd : 1950 AGE: 69 MR#: [id number] SERVICE DATE: 06/15/[address]: Apollo Valente MD PRIMARY CARE DR: Keri Church DO ROOM#: Musculoskeletal General Chief Complaint: Fall injury Stated Complaint: FALL Time Seen by Provider: 06/15/20 11:49 Source: patient History of present illness HPI Narrative:: 69 yo woman with multiple medical problems, 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 She was holding the dog on a leash and the dog pulled violently and the patient fell onto her L arm and L hip area. She suffereda wound to the L forearm. No head injury or LOC. Redness?: No Deformity?: No Swelling?: No Ecchymosis?: No Shortening of limb?: No Distal CMS intact?: Yes Open Fracture?: No Numbness or tingling?: No Allergies/Home Meds Allergies Allergy/AdvReac Type Severity Reaction Status Date / Time codeine [CODEINE] Allergy Unknown Verified 06/15/20 12:12 diazepam [From VALIUM] Allergy Unknown Verified 06/15/20 12:12 flurazepam [From DALMANE] Allergy Unknown Verified 06/15/20 12:12 levofloxacin [From LEVAQUIN] Allergy Unknown Verified 06/15/20 12:12 meperidine [From DEMEROL] Allergy Unknown Verified 06/15/20 12:12 nitrofurantoin Allergy Unknown Verified 06/15/20 12:12 [From MACROBID] rabeprazole [From ACIPHEX] Allergy Unknown Verified 06/15/20 12:12 Sulfa (Sulfonamide Allergy Unknown Verified 06/15/20 12:12 Antibiotics) [SULFA (SULFONAMIDE ANTIBIOTICS)] Home Medications Medication Instructions Recorded Confirmed Last Taken Type aspirin 81 mg tablet,delayed 81 mg PO QDAY 02/18/19 06/14/20 Unknown History release acetaminophen 325 mg tablet 350 - 650 mg PO HS #180 tab 03/10/19 06/14/20 Unknown Rx docusate sodium 100 mg capsule 100 mg PO QDAY #90 cap 04/21/19 03/08/20 Unknown Rx multivitamin 1 tab PO QDAY #90 tab 04/21/19 06/14/20 Unknown Rx calcium carbonate 500 mg (1,250 1 tab PO QDAY #90 tab 07/15/19 06/14/20 Unknown Rx mg)-vitamin D3 200 unit tablet ascorbate calcium (vitamin C) 500 500 mg PO QDAY #90 tab 09/25/19 06/14/20 Unknown Rx mg tablet lisinopril 20 mg tablet 20 mg PO QDAY #90 tab 10/21/19 06/14/20 Unknown Rx pantoprazole 40 mg tablet,delayed 40 mg PO QDAY #90 tab 10/21/19 06/14/20 Unknown Rx release gabapentin 100 mg capsule 100 mg PO BID #180 cap 12/25/19 06/14/20 Unknown Rx gabapentin 400 mg capsule 400 mg PO QDAY #90 cap 12/25/19 06/14/20 Unknown Rx warfarin 4 mg tablet 4 mg PO DAILY #90 tab 12/25/19 06/14/20 Unknown Rx warfarin 1 mg tablet 1 mg PO DAILY #90 tab 12/26/19 06/14/20 Unknown Rx warfarin 5 mg tablet 5 mg PO QDAY #90 tab 03/22/20 06/14/20 Unknown Rx cyclosporine 0.05 % eye drops in a 1 drops OU Q12H #60 each 04/19/20 06/14/20 Unknown Rx dropperette magnesium oxide 400 mg PO QDAY #90 tab 04/19/20 06/14/20 Unknown Rx cholecalciferol (vitamin D3) 125 125 mcg PO QDAY #90 cap 06/14/20 Unknown Rx mcg (5,000 unit) capsule duloxetine 30 mg capsule,delayed 30 mg PO QDAY #90 cap 06/14/20 06/14/20 Unknown Rx release fexofenadine 180 mg tablet 180 mg PO Q24H #90 tab 06/14/20 Unknown Rx hydroxychloroquine 200 mg tablet 200 mg PO BID #180 tab 06/14/20 Unknown Rx nadolol 20 mg tablet 20 mg PO QDAY #90 tab 06/14/20 Unknown Rx potassium citrate 5 mEq (540 mg) 5 meq PO QDAY #90 tab 06/14/20 Unknown Rx tablet,extended release rifaximin 550 mg tablet 550 mg PO DAILY #90 tab 06/14/20 Unknown Rx PMH (from Triage) Patient Medical History PMH Reviewed/Updated as Needed: Yes PMH/PSH from Triage: Medical History (Updated 06/14/20 @ 11:05 by Keri Church DO) Arthritis (Medical) M19.90 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 Diabetes mellitus type 2 in obese (Medical) E11.69, E66.9 Environmental allergies (Medical) Z91.09 Essential (primary) hypertension (Medical) I10 GERD (gastroesophageal reflux disease) (Medical) K21.9 Hearing deficit (Medical) H91.90 History of CVA (cerebrovascular accident) (Medical) Z86.73 History of IBS (Medical) Z87.19 Laceration (Medical) Liver disease (Medical) K76.9 Lymphocytosis (Medical) D72.820 Osteoporosis (Medical) M81.0 Recurrent sinusitis (Medical) J32.9 Urinary incontinence (Medical) R32 Surgical History (Updated 12/16/19 @ 17:53 by Keri Church DO) H/O section (Surgical) Z98.891 History of cervical spinal arthrodesis (Surgical) Z98.1 History of extraction of renal calculus (Surgical) Z98.890, Z87.442 History of hysterectomy (Surgical) Z90.710 History of nasal surgery (Surgical) Z98.890 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 History of throat surgery (Surgical) Z98.890 Hx Drug Resistant Infections Hx MRSA: (Methicillin-resistant Staphylococcus aureus): No Hx VRE (Vancomycin-resistant enterococci): No Hx C.Diff: No Hx CRKP: No Hx Other Resistant Infection?: No Isolation: Standard precautions Hx Recent Travel Out of the country within 10 days (where): No Hx Fever: No Hx Fever with a rash?: No Nurse screening for coronavirus: Recent Travel outside the No country (where) Has patient experienced No coronavirus symptoms Social History Does patient have suicidal/homicidal thoughts or ideation?: No Are you in a relationship with/Does anyone hit you, yell/swear at you, steal from you?: No Substance Use Smoking Status: Former smoker Tobacco Use Hx Chewing Tobacco Use: No Vaccination History Hx/Date of Tetanus, Diphtheria Vaccination: Yes Hx/Date of Influenza Vaccination: Yes Hx/Date of Pneumococcal Vaccination: Yes ROS Review of Systems Constitutional: Denies fever and weakness Eyes: Denies vision change ENT: Denies epistaxis Respiratory: Denies SOB Cardiovascular: Denies chest pain Gastrointestinal: Denies abdominal pain Musculoskeletal: Reports neck pain, arm pain, back pain and leg pain Skin/Breasts: Reports lesions and bruising Neurologic: Denies weakness and numbness Hematological/Lymphatic: Reports easy bleeding and easy bruising PFSH Medical History Arthritis Cavernoma Diabetes mellitus type 2 in obese Environmental allergies Essential (primary) hypertension GERD (gastroesophageal reflux disease) Hearing deficit History of CVA (cerebrovascular accident) History of IBS Laceration Liver disease Lymphocytosis Osteoporosis Recurrent sinusitis Urinary incontinence Surgical History H/O section History of cervical spinal arthrodesis History of extraction of renal calculus History of hysterectomy History of nasal surgery History of splenectomy History of throat surgery Family His tory Mother Diabetes Colon cancer Heart disease Uterine cancer Rheumatic fever Rheumatoid arthritis Father Alcohol abuse Small cell lung cancer Cirrhosis Sister Breast cancer Social History Does the Patient have a Healthcare Proxy: Yes Does Patient have a DNR?: No Does Patient have a Living Will?: Yes highest education level completed: Associate degree: occupational, technical, vocational program Hx Recent Travel (where): No well-balanced diet: daily high-fat food intake: 0-1 times daily daily servings fruits/ve-4 daily servings of milk/calcium: 5 or more eating out: 1-3 times/week reads food labels: usually or always Smoking Status: Former smoker alcohol intake: current alcohol intake frequency: 0-2 drinks per day substance use type: does not use seatbelt 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 water heater temp set < 120 deg: Yes working smoke detector in home: Yes fire extinguisher in home: Yes carbon monox detector in home: No firearms in home: No victim of physical abuse: No victim of emotional abuse: No Physical Exam General Physical Exam Narrative: awake and alert woman, appears to be in mild distress due to p ain, no respiratory distress Limitations: no limitations General appearance: alert and in distress Head Head exam: Present atraumatic, normocephalic and normal inspection Eye Eye exam: Present normal apperance and EOMI; Absent scleral icterus and conjunctival injection ENT ENT exam: Present normal exam, normal orophraynx and mucous membranes moist Neck Neck exam: Present normal inspection, tenderness (chronic) and full ROM Respiratory Respiratory exam: Present normal lung sounds bilaterally; Absent respiratory distress Cardiovascular Cardiovascular Exam: Present regular rate and normal rhythm GI/Abdominal GI/Abdominal exam: Present Abd soft, bowel sounds present all quadrents; Absent tenderness Rectal Rectal exam: Present deferred Extremities Exam Extremities exam: Present full ROM and tenderness; Absent normal inspection Expanded Upper Extremity Exam Left: General: Present abrasion Shoulder Exam: Present normal inspection and full ROM; Absent tenderness Upper Arm exam: Present normal inspection and full ROM; Absent tenderness Elbow exam: Present full ROM, tenderness, swelling (hematoma), abrasion (skin tear), laceration (puncture wound 1 cm) and ecchymosis; Absent normal inspection, deformity, dislocation and erythema Forearm Wrist exam: Present normal inspection and full ROM; Absent tenderness Hand Wrist exam: Present normal inspection and full ROM; Absent tenderness Neuro motor exam: Present wrist extension intact Neurosensory exam: Present 2-point discrimination Vascular: Present normal capillary refill and radial pulse; Absent vascular compromise and Pallo Expanded Lower Extremity Exam Left: Hip exam: Present normal inspection, full ROM and tenderness; Absent swelling, abrasion and laceration Upper Leg exam: Present normal inspection and full ROM; Absent tenderness Knee exam: Present normal inspection and full ROM; Absent tenderness Lower Leg exam: Present normal inspection and full ROM; Absent tenderness Ankle exam: Present normal inspection and full ROM; Absent tenderness Foot/Toe exam: Present normal inspection and full ROM; Absent tenderness Neuro vascular tendon exam: Present no vascular compromise; Absent extremity cold to touch andpallor Gait: observed and normal Back Exam Back exam: Present normal inspection, full ROM and tenderness Neurological Exam Neurological exam: Present alert and oriented X3; Absent motor sensory deficit Psychiatric Psychiatric exam: Present normal affect and normal mood Skin Skin exam: Presen t warm, dry and abrasion; Absent intact and normal color Vital Signs Vital Signs: Vital Signs 06/15/20 11:48 Temperature 97.5 F L Pulse Rate 52 L Respiratory Rate 16 Blood Pressure 139/65 O2 Sat by Pulse Oximetry 96 MDM (comprehensive) Radiology Data Radiology results: report reviewed and image reviewed Medical Decision Making Free Text/Narative:: The patient was evaluated for fall with L hip and elbow injury. The PE was significant for tenderness over the L trochanter and ecchymoses, hematoma, skin tear and bleeding from a puncture wound over the L elbow. The X-rays showed no fracture. Under sterile conditions with lidocaine prep, 1 4-0 nylon suture was placed to close the elbow wound. Pressure dressing was applied. The patient was observed to walk without any difficulty. Plan Plan Plan: d/c home Plan of care: Plan of care discussed with patient and or family, Patient encouraged to ask questionsabout plan and Patient agrees with plan of care Discharge Plan Admission/Discharge Dx Primary DC Diagnosis: L hip and L elbow contusion; L elbow hematoma, skin tear and puncture wound ED Provider: Apollo Valente ED Status: Discharged Time Seen by Provider: 06/15/20 11:49 Triaged At: 06/15/20 11:48 Condition Condition: Improved Discharge Detail Disposition: Home, Self-Care Med Rec New Prescriptions: No Action aspirin [Adult Aspirin Regimen] 81 mg tablet,delayed release (DR/EC) 81 mg PO QDAY RF: 0 lisinopril 20 mg tablet 20 mg PO QDAY Qty: 90 RF: 3 pantoprazole [Protonix] 40 mg tablet,delayed release (DR/EC) 40 mg PO QDAY Qty: 90 RF: 3 duloxetine [Cymbalta] 30 mg capsule,delayed release(DR/EC) 30 mg PO QDAY Qty: 90 RF: 4 acetaminophen [Tylenol] 325 mg tablet 350 - 650 mg PO HS Qty: 180 RF: 3 docusate sodium [Colace] 100 mg capsule 100 mg PO QDAY Qty: 90 RF: 4 multivitamin Tablet 1 tab PO QDAY Qty: 90 RF: 4 calcium carbonate-vitamin D3 500 mg(1,250mg) -200 unit tablet 1 tab PO QDAY Qty: 90 RF: 3 ascorbate calcium (vitamin C) 500 mg tablet 500 mg PO QDAY Qty: 90 RF: 3 warfarin [Coumadin] 4 mg tablet 4 mg PO DAILY Qty: 90 RF: 3 gabapentin 100 mg capsule 100 mg PO BID Qty: 180 RF: 3 gabapentin 400 mg capsule 400 mg PO QDAY Qty: 90 RF: 3 warfarin [Coumadin] 1 mg tablet 1 mg PO DAILY Qty: 90 RF: 3 warfarin 5 mg tablet 5 mg PO QDAY Qty: 90 RF: 3 magnesium oxide 400 mg magnesium tablet 400 mg PO QDAY Qty: 90 RF: 3 Restasis 0.05 % dropperette 1 drops OU Q12H Qty: 60 RF: 1 cholecalciferol (vitamin D3) 125 mcg (5,000 unit) capsule 125 mcg PO QDAY Qty: 90 RF: 3 Medications Medication reconciliation performed by provider at discharge: Yes Follow Up Care/Instructions Diet/Activity/Wound Care..: suture removal in 10 days, wash wound with soap and water daily after first 48 hours, return for increased redness, pain and swelling. *Discharge Patient* Discharge Orders: Discharge Order (Routine); Ordered 06/15/20 Ordered By: Apollo Valente Discharge Date/Time: 06/15/20 13:26 Interventions Interventions: ED Discharge Instructions Last Done: 06/15/20 13:26 Report Signers: <Electronically signed by Apollo Valente MD> Apollo Valente MD 06/15/20 1542 Apollo Valente MD SIGNATURE DA Report Cosigners: D: VEL 06/15/20 115 T: VEL 06/15/20 1157 CC: Keri Church DO Name Value Range Interpretation Code Description Data Julianna rce(s) Supporting Document(s) ID Date Data Source [id number] 06/14/2020 10:13:00 AM [facility] Patient Name: [place] MCMANUS : 1950 Sex: F Pt Unit #: [id number] Location:[facility] Provider: Visit Date/Time: 06/14/20 Primary Insurance: MEDICARE [employer] Secondary Insurance: FOR LIFE ADDENDUM Office Procedure Documentation entered by Theresa Middleton 06/14/20 15:39: Immunizations Afluria Qd (3yr up)(PF) Performing Provider: Keri Church DO Administered by: Theresa Middleton on 06/14/20 15:38 Dose Route Admin Location Lot Number Expiration Date NDC Manufactu rer 0.5 mL IM Left deltoid [id number] 02/02/21 [id number] [employer] VIS Given Date VIS Provided VIS Publication Date 06/14/20 Single Vaccine 19 Eligibility Eligibility Date Funding Source Not [facility] Eligible 06/14/20 Private <Electronically signed by Theresa Middleton > Addendum Signed By: Date/Time: 06/14/20 1539 Intake Vital Signs 06/14/20 10:13 06/14/20 10:20 Current Height 4 ft 10 in Current Weight 156 lb Weight Measurement Method Standing Scale BMI 32.5 BP 144/90 Position Sitting Respiration 18 Pulse 54 L Temp 98.0 F Pulse Oximetry (%) 97 Oxygen Delivery Method room air Intake Visit Reasons: Hypertension Nurse Note: has been out of the [facility] for MD appointment Accompanied by: Daughter Is patient in pain?: Yes (all over) Pain scale (1-10): 6 Allergies codeine [CODEINE] Allergy (Unknown, Verified 05/02/20 09:22) diazepam [From VALIUM] Allergy (Unknown, Verified 05/02/20 09:22) flurazepam [From DALMANE] Allergy (Unknown, Verified 05/02/20 09:22) levofloxacin [From LEVAQUIN] Allergy (Unknown, Verified 05/02/20 09:22) meperidine [From DEMEROL] Allergy (Unknown, Verified 05/02/20 09:22) nitrofurantoin [From MACROBID] Allergy (Unknown, Verified 05/02/20 09:22) rabeprazole [From ACIPHEX] Allergy (Unknown, Verified 05/02/20 09:22) Sulfa (Sulfonamide Antibiotics) [SULFA (SULFONAMIDE ANTIBIOTICS)] Allergy (Unknown, Verified 05/02/20 09:22) Medications acetaminophen (Tyleno l) 350 - 650 mg (1.0769 - 2 x 325 mg) PO HS ascorbate calcium (vitamin C) 500 mg PO QDAY aspirin (Adult Aspirin Regimen) 81 mg PO QDAY calcium carbonate- vitamin D3 500 mg(1,250mg) -200 unit 1 tab PO QDAY cyclosporine 0.05% (Restasis) 1 drop BOTH EYES (OU) Q12H docusate sodium (Colace) 100 mg PO QDAY duloxetine (Cymbalta) 30 mg PO QDAY fexofenadine 180 mg PO Q24H gabapentin 100 mg PO BID gabapentin 400 mg PO QDAY hydroxychloroquine 200 mg PO BID lisinopril 20 mg PO QDAY magnesium oxide 400 mg PO QDAY multivitamin 1 tab PO QDAY nadolol 20 mg PO QDAY pantoprazole (Protonix) 40 mg PO QDAY potassium citrate ER 5 mEq PO QDAY rifaximin 550 mg PO DAILY warfarin (Coumadin) 4 mg See Protocol PO DAILY warfarin (Coumadin) 1 mg See Protocol PO DAILY warfarin 5 mg See Protocol PO QDAY HIV Testing Offer - ages 13-64 Requirement for HIV testing offer been met?: Patient reports past refusal Coronavirus Screening Screening Have you traveled outside of [facility] or [facility] in the last 14 days.: Yes Has patient experienced coronavirus symptoms: No PFSH Medical History (Updated 06/14/20 @ 11:05 by Keri Church DO) Arthritis Cavernoma Diabetes mellitus type 2 in obese Environmental allergies Essential (primary) hypertension GERD (gastroesophageal reflux disease) Hearing deficit History of CVA (cerebrovascular accident) History of IBS Laceration Liver disease Lymphocytosis Osteoporosis Recurrent sinusitis Urinary incontinence Surgical History H/O section History of cervical spinal arthrodesis History of extraction of renal calculus History of hysterectomy History of nasal surgery History of splenectomy History of throat surgery Family History Mother Diabetes Colon cancer Heart disease Uterine cancer Rheumatic fever Rheumatoid arthritis Father Alcohol abuse Small cell lung cancer Cirrhosis Sister Breast cancer Social History Does the Patient have a Healthcare Proxy: No Does Patient have a DNR?: No Does Patient have a Living Will?: Yes highest education level completed: Associate degree: occupational, technical, vocational program Hx Recent Travel (where): No well-balanced diet: daily high-fat food intake: 0-1 times daily daily servings fruits/ve-4 daily servings of milk/calcium: 5 or more eating out: 1-3 times/week reads food labels: usually or always Smoking Status: Former smoker alcohol intake: current alcohol intake frequency: 0-2 drinks per day substance use type: does not use seatbelt 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 Last seen 03/08/20. She has new DM2. Last labs 06/11/20. Dr. Benz/NeuroSurgery did a shot in the neck which helped and she gets another shot06/21/20. Hypertension (Cardio) Current cardiovascular symptom: denies chest pain or dyspnea on exertion Current endocrine symptoms: denies weight gain Current renal disease symptoms: denies weight loss Most Recent Cardiac Tests: No Data to Display Review of Systems Const Denies weight gain and Denies weight loss Card Denies chest pain, Denies irregular heart rhythm and Denies dyspnea on exertion Resp Denies cough and Denies dyspnea on exertion Exam Const General: coope rative, healthy appearing and comfortable Neck Thyroid: abnormal thyroid Carotids: no bruits Lymphatic: lymphadenopathy noted Chest Chest: normal inspection of the chest Resp Auscultation: clear to auscultation bilaterally, no rales, no rhonchi and no wheezes Cardio Rhythm: regular rhythm Heart Sounds: S1 normal, S2 normal, no gallops, no murmurs and no rubs Musc Other: rotates head R 50 degrees, L 30 degrees approximately 4+ strength hand squeeze Bl Extrem General: normal to inspection and no edema Assessment Plan Assessment Plan (1) Essential (primary) hypertension: Status: Chronic Code(s): I10 - Essential (primary) hypertension SNOMED Code(s): 78996336 Category: Medical Plan - Keri Church, DO: New DM2. They would like to try diet before starting Metformin. Labs prior to f/u 6 months. Hx cervical fusion and chronic headaches. Now getting injections in neck with Neurosurgery Dr. Benz. Administrative Encounter. [employer] form filled out and letters on scripts to allow daughter Zuri Mcmanus [place] on [place] at [place] to get her meds at [facility] and for Zuri to be her health care proxy. (2) Diabetes mellitus type 2 in obese: Status: Acute Code(s): E11.69 - Type 2 diabetes mellitus with other specified complication; E66.9 - Obesity, unspecified SNOMED Code(s): 82512207 Category: Medical (3) History of CVA (cerebrovascular accident): Status: Chronic Code(s): Z86.73 - Personal history of transient ischemic attack (TIA), and cerebral infarction without residual deficits SNOMED Code(s): 752952706 Category: Medical (4) History of cervical spinal arthrodesis: Status: Acute Code(s): Z98.1 - Arthrodesis status SNOMED Code(s): 4613271124573 Category: Surgical (5) Administrative encounter: Code(s): Z02.9 - Encounter for administrative examinations, unspecified Orders Other Medications: Refilled: duloxetine (Cymbalta) 30 mg PO QDAY 90 caps 4RF rifaximin 550 mg PO DAILY 90 tabs 4RF fexofenadine 180 mg PO Q24H 90 tabs 3RF hydroxychloroquine 200 mg PO BID 180 tabs 3RF nadolol 20 mg PO QDAY 90 tabs 3RF potassium citrate ER 5 mEq PO QDAY 90 tabs 3RF rifaximin 550 mg PO DAILY 90 tabs 4RF Discontinued: methylprednisolone (Medrol (Jarred)) Discontinued Reason: MD Order orally per package directions 21 ea 0RF <Electronically signed by Keri Church DO> 06/14/20 1108 Name Value Range Interpretation Code Description Data Julianna rce(s) Supporting Document(s) ID Date Data Source [id number] 06/11/2020 03:42:00 PM [facility] Name Value Range Interpretation Code Description Data Julianna rce(s) Supporting Document(s) Urine Random Creatinine 27.0 mg/dL [facility] THERE IS NO ESTABLISHED RANGE FOR RANDOM URINE CREATININE Urine Microalbumin Less Than 5.0 0.0-29.9 N [facility] ID Date Data Source [id number] 06/11/2020 11:47:00 AM [facility] Name Value Range Interpretation Code Description Data Julianna rce(s) Supporting Document(s) Leukocytes [#/volume] in Blood by Automated count 9.2 10*3/uL 4.45-10 .71 N [facility] Erythrocytes [#/volume] in Blood by Automated count 4.74 10*6/uL 4.20 -5.40 N [facility] Hemoglobin [Moles/volume] in Blood 14.6 g/dL 10.7-15.4 N [facility] Hematocrit [Volume Fraction] of Blood by Automated count 44.6 % 3 7-47 N [facility] Erythrocyte mean corpuscular volume [Ent itic volume] in Cord blood by Automated count 94.1 fL 80-96 N [facility] ital Erythrocyte mean corpuscular hemoglobin [Entitic mass] by Automated count 30.8 pg 27-31 N [facility] Erythrocyte mean corpuscular hemoglobin concentration [Mass/volume] in Cord blood 32.7 g/dL 33-37 Below low normal [facility] Erythrocyte distribution width [Entitic volume] by Automated cou nt 16 % 11-15 Above high normal [facility] Platelets [#/volume] in Blood by Automated count 329 10*3/uL 130-472 N [facility] Platelet mean volume [Entitic volume] in Blood 10.3 fL 9.1-13.1 N [facility] Neutrophils/100 leukocytes in Blood by Automated count 31.9 % 41-77 Below low normal [facility] Neutrophils [#/volume] in Blood by Automated count 2.9 U 1.7-7.6 N [facility] Lymphocytes/100 leukocytes in Blood by Automated count 50.4 % 14-46 Above high normal [facility] Lymphocytes [#/volume] in Blood by Automated count 4.6 U 0.6-4.6 N [facility] Monocytes/100 leukocytes in Blood by Automated count 11.9 % 4-12 N [facility] Monocytes [#/volume] in Blood by Automated count 1.1 U 0.2-1.2 N [facility] Eosinophils/100 leukocytes in Blood by Automated count 4.9 % 0-7 N [facility] Eosinophils [#/volume] in Blood by Automated count 0.5 U 0.0-0.5 N [facility] Basophils/100 leukocytes in Blood by Automated count 0.8 % 0.4-1 .3 N [facility] Basophils [#/volume] in Blood by Automated count 0.1 U 0.0-0.2 N [facility] NUCLEATED RED BLOOD CELL 0 % [facility] NUCLEATED RED BLOOD CELL# 0 U [facility] Immature granulocytes [Presence] in Blood by Automated count 0-2 N [facility] Immature granulocytes [#/volume] in Blood by Automated count 0.0 U 0-0.1 N [facility] Manual Differential panel - Blood NO [facility] ID Date Data Source [id number] 06/11/2020 03:51:00 PM EST [facility] Name Value Range Interpretation Code Description Data Julianna rce(s) Supporting Document(s) Urea nitrogen [Mass/volume] in Serum or Plasma 9 mg/dL 9-23 N [facility] Sodium [Moles/volume] in Serum or Plasma 144 mmol/L 132-146 [facility] Potassium [Moles/volume] in Serum or Plasma 4.0 mmol/L 3.5-5.5 [facility] Chloride [Moles/volume] in Serum or Plasma 109 mmol/L 99-109 [facility] Carbon dioxide, total [Moles/volume] in Serum or Plasma 32 mmol/ L 20-31 Above high normal [facility] Anion gap in Serum or Plasma 7 mmol/L 8-16 Below low normal [facility] Glucose [Mass/volume] in Serum or Plasma 79 mg/dL 74-106 N [facility] Creatinine 0.7 mg/dL 0.5-1.1 [facility] Glomerular filtration rate/1.73 sq M.pre dicted [Volume Rate/Area] in Serum or Plasma Greater Than 60 ABOVE 60 [facility] Alanine aminotransferase [Enzymatic acti vity/volume] in Serum or Plasma by With P-5'-P 39 U/L 10-49 [facility] ital Aspartate aminotransferase [Enzymatic ac tivity/volume] in Serum or Plasma by With P-5'-P 51 U/L 0-33 Above high normal [facility] Alkaline phosphatase [Enzymatic activity/volume] in Serum or Plasma 124 U/L 45-129 [facility] Calcium [Mass/volume] in Serum or Plasma 9.3 mg/dL 8.5-10.1 [facility] Bilirubin.total [Mass/volume] in Serum or Plasma 0.6 mg/dL 0.3-1.2 [facility] Albumin [Mass/volume] in Serum or Plasma by Bromocresol purple (BCP) dye binding method 3.5 g/dL 3.2-4.8 [facility] ital Protein [Mass/volume] in Serum or Plasma 7.5 g/dL 5.7-8.2 [facility] ID Date Data Source [id number] 06/11/2020 03:58:00 PM EST [facility] Name Value Range Interpretation Code Description Data Julianna rce(s) Supporting Document(s) Hemoglobin A1c % 6.6 % 4.0-6.0 Above high normal [facility] The following ranges may be u sed for interpretation of results: HGBA1C degree of glucose control: Greater than 8%: Action Suggested * Less than 7%: Goal of Diabetic Therapy Less than 6%: NormalFactors such as duration of diabetes, adherence to therapyand the age of the patient should also be considered inassessing the degree of blood glucose control.* High risk of developing intermediate complications such asretinopathy, nephropathy, neuropathy, cardiopathy, etc. Some danger of hypoglycemic reaction in Type I diabetics.Some glucose intolerant individuals and "Sub Clinical"diabetics may demonstrate HGBA1C levels in this area. Glucose mean value [Moles/volume] in Blood Estimated f rom glycated hemoglobin 143 mg/dL [facility] An A1C of 7% - the goal of diabetic ther apy - is equivalentto an EAG of 154 mg/dl. ID Date Data Source [id number] 06/12/2020 06:26:00 AM [facility] Name Value Range Interpretation Code Description Data Julianna rce(s) Supporting Document(s) 25-Hydroxyvitamin D2+25-Hydroxyvitamin D3 [Mass/volume ] in Serum or Plasma 25 ng/mL 30-100 [facility] Vitamin D Status 25-OH Vitamin D :Deficiency: <20 ng/mLInsufficiency: 20 - 29 ng/mLOptimal: > or = 30 ng/mLFor 25-OH Vitamin D testing on patients onD2-supplementation and patients for whom quantitationof D2 and D3 fractions is required, the QuestAssureD(TM)25- [place] VIT D, (D2,D3), LC/MS/MS is recommended: ordercode 31988 (patients >2yrs).See Note 1Note 1For additional information, please refer [email or web address](This link is being provided for informational/educational purposes only.)THIS TEST WAS PERFORMED AT:[employer] [id number] PAREDES MD ID Date Data Source [id number] 06/11/2020 03:51:00 PM [facility] Name Value Range Interpretation Code Description Data Julianna rce(s) Supporting Document(s) Triglycerides 141 mg/dL 0-150 [facility] Cholesterol 202 mg/dL 120-200 Above high normal [facility] HDL Cholesterol 50 mg/dL [facility] HDL Less than 40 mg/dL: Major risk for CHDHDL Greater than 59 mg/dL: Low risk for CHD LDL Cholesterol, Calc 124 mg/dL 0-100 Above high normal [facility] ID Date Data Source [id number] 05/10/2020 01:15:00 PM EDT [facility] Name Value Range Interpretation Code Description Data Julianna rce(s) Supporting Document(s) Leukocytes [#/volume] in Blood by Automated count 14.1 10*3/uL 4.45-10.71 Above high normal [facility] Erythrocytes [#/volume] in Blood by Automated count 4.64 10*6/uL 4.20 -5.40 N [facility] Hemoglobin [Moles/volume] in Blood 14.2 g/dL 10.7-15.4 N [facility] Hematocrit [Volume Fraction] of Blood by Automated count 42.5 % 3 7-47 N [facility] Erythrocyte mean corpuscular volume [Ent itic volume] in Cord blood by Automated count 91.6 fL 80-96 N [facility] ital Erythrocyte mean corpuscular hemoglobin [Entitic mass] by Automated count 30.6 pg 27-31 N [facility] l Erythrocyte mean corpuscular hemoglobin concentration [Mass/volume] in Cord blood 33.4 g/dL 33-37 N [facility] Erythrocyte distribution width [Entitic volume] by Automated cou nt 16 % 11-15 Above high [facility] Platelets [#/volume] in Blood by Automated count 363 10*3/uL 130-472 N [facility] Platelet mean volume [Entitic volume] in Blood 10.4 fL 9.1-13.1 N [facility] Neutrophils/100 leukocytes in Blood by Automated count 51.9 % 41- 77 N [facility] Neutrophils [#/volume] in Blood by Automated count 7.3 U 1.7-7.6 N [facility] Lymphocytes/100 leukocytes in Blood by Automated count 33.3 % 14- 46 N [facility] Lymphocytes [#/volume] in Blood by Automated count 4.7 U 0.6-4.6 Above high normal [facility] Monocytes/100 leukocytes in Blood by Automated count 13.1 % 4-12 Above high normal [facility] Monocytes [#/volume] in Blood by Automated count 1.9 U 0.2-1.2 Above high normal [facility] Eosinophils/100 leukocytes in Blood by Automated count 1.0 % 0-7 N [facility] Eosinophils [#/volume] in Blood by Automated count 0.1 U 0.0-0.5 N [facility] Basophils/100 leukocytes in Blood by Automated count 0.3 % 0.4-1.3 Below low normal [facility] Basophils [#/volume] in Blood by Automated count 0.0 U 0.0-0.2 N [facility] NUCLEATED RED BLOOD CELL 0 % [facility] NUCLEATED RED BLOOD CELL# 0 U [facility] Immature granulocytes [Presence] in Blood by Automated count 0-2 N [facility] Immature granulocytes [#/volume] in Blood by Automated count 0.1 U 0-0.1 N [facility] Manual Differential panel - Blood NO [facility] ID Date Data Source [id number] 05/10/2020 01:17:00 PM EDT [facility] Name Value Range Interpretation Code Description Data Julianna rce(s) Supporting Document(s) Urea nitrogen [Mass/volume] in Serum or Plasma 15 mg/dL 9-23 N [facility] Sodium [Moles/volume] in Serum or Plasma 142 mmol/L 132-146 [facility] Potassium [Moles/volume] in Serum or Plasma 4.3 mmol/L 3.5-5.5 [facility] Chloride [Moles/volume] in Serum or Plasma 108 mmol/L 99-109 [facility] Carbon dioxide, total [Moles/volume] in Serum or Plasma 29 mmol/L 20 -31 [facility] Anion gap in Serum or Plasma 9 mmol/L 8-16 [facility] Glucose [Mass/volume] in Serum or Plasma 137 mg/dL 74-106 Above high normal [facility] Creatinine 0.7 mg/dL 0.5-1.1 [facility] Glomerular filtration rate/1.73 sq M.pre dicted [Volume Rate/Area] in Serum or Plasma Greater Than 60 ABOVE 60 [facility] Alanine aminotransferase [Enzymatic acti vity/volume] in Serum or Plasma by With P-5'-P 67 U/L 10-[address] [facility] Aspartate aminotransferase [Enzymatic ac tivity/volume] in Serum or Plasma by With P-5'-P 64 U/L 0-33 Above high normal [facility] Alkaline phosphatase [Enzymatic activity/volume] in Serum or Plasma 109 U/L 45-129 [facility] Calcium [Mass/volume] in Serum or Plasma 9.0 mg/dL 8.5-10.1 [facility] Bilirubin.total [Mass/volume] in Serum or Plasma 0.8 mg/dL 0.3-1.2 [facility] Albumin [Mass/volume] in Serum or Plasma by Bromocresol purple (BCP) dye binding method 3.1 g/dL 3.2-4.8 Below low normal [facility] Protein [Mass/volume] in Serum or Plasma 7.6 g/dL 5.7-8.2 [facility] ID Date Data Source [id number] 05/02/2020 09:31:00 AM EDT [facility] ED Physician Documentation NAME: [place] MCMANUS : 1950 AGE: 69 MR#: [id number] SERVICE DATE: 05/02/[address]: Apollo Valente MD PRIMARY CARE DR: Keri Church DO ROOM#: HPI (Adult, General) General Chief Complaint: Musculoskeletal Stated Complaint: NECK PAIN Resident [facility], travel outisde home, exposure to hot tubs:: No Time Seen by Provider: 05/02/20 09:23 Source: patient Exam Limitations: no limitations History of Present Illness Narrative: 69 yo woman with h/o RA, chronic back and neck problems, presents with increased L sided neck pain and stiffness for the past 3 days. No arm weakness or numbness. She denies any a cute injury or trauma or heavy lifting. Allergies/Home Meds Allergies Allergy/AdvReac Type Severity Reaction Status Date / Time codeine [CODEINE] Allergy Unknown Verified 05/02/20 09:22 diazepam [From VALIUM] Allergy Unknown Verified 05/02/20 09:22 flurazepam [From DALMANE] Allergy Unknown Verified 05/02/20 09:22 levofloxacin [From LEVAQUIN] Allergy Unknown Verified 05/02/20 09:22 meperidine [From DEMEROL] Allergy Unknown Verified 05/02/20 09:22 nitrofurantoin Allergy Unknown Verified 05/02/20 09:22 [From MACROBID] rabeprazole [From ACIPHEX] Allergy Unknown Verified 05/02/20 09:22 Sulfa (Sulfonamide Allergy Unknown Verified 05/02/20 09:22 Antibiotics) [SULFA (SULFONAMIDE ANTIBIOTICS)] Home Medications Medication Instructions Recorded Confirmed Last Taken Type aspirin 81 mg tablet,delayed 81 mg PO QDAY 02/0303/08/20 Unknown History release acetaminophen 325 mg tablet 350 - 650 mg PO HS #180 tab 03/10/19 03/08/20 Unknown Rx docusate sodium 100 mg capsule 100 mg PO QDAY #90 cap 04/21/19 03/08/20 Unknown Rx duloxetine 30 mg capsule,delayed 30 mg PO QDAY #90 cap 04/21/19 03/08/20 Unknown Rx release multivitamin 1 tab PO QDAY #90 tab 04/21/19 03/08/20 Unknown Rx rifaximin 550 mg tablet 550 mg PO DAILY #90 tab 04/21/19 03/08/20 Unknown Rx calcium carbonate 500 mg (1,250 1 tab PO QDAY #90 tab 07/15/19 03/08/20 Unknown Rx mg)-vitamin D3 200 unit tablet fexofenadine 180 mg tablet 180 mg PO Q24H #90 tab 08/12/19 03/08/20 Unknown Rx hydroxychloroquine 200 mg tablet 200 mg PO BID #180 tab 08/12/19 03/08/20 Unknown Rx potassium citrate 5 mEq (540 mg) 5 meq PO QDAY #90 tab 08/12/19 03/08/20 Unknown Rx tablet,extended release nadolol 20 mg tablet 20 mg PO QDAY #90 tab 09/04/19 03/08/20 Unknown Rx ascorbate calcium (vitamin C) 500 500 mg PO QDAY #90 tab 09/25/19 03/08/20 Unknown Rx mg tablet lisinopril 20 mg tablet 20 mg PO QDAY #90 tab 10/21/19 03/08/20 Unknown Rx pantoprazole 40 mg tablet,delayed 40 mg PO QDAY #90 tab 10/21/19 03/08/20 Unknown Rx release gabapentin 100 mg capsule 100 mg PO BID #180 cap 12/25/19 03/08/20 Unknown Rx gabapentin 400 mg capsule 400 mg PO QDAY #90 cap 12/25/19 03/08/20 Unknown Rx warfarin 4 mg tablet 4 mg PO DAILY #90 tab 12/25/19 03/08/20 Unknown Rx warfarin 1 mg tablet 1 mg PO DAILY #90 tab 12/26/19 03/08/20 Unknown Rx warfarin 5 mg tablet 5 mg PO QDAY #90 tab 03/22/20 Unknown Rx cyclosporine 0.05 % eye drops in a 1 drops OU Q12H #60 each 04/19/20 Unknown Rx dropperette magnesium oxide 400 mg PO QDAY #90 tab 04/19/20 Unknown Rx methylprednisolone [Medrol (Jarred)] See Rx Instructions .ROUTE 05/02/20 Unknown Rx .COMPLEX #21 ea PMH (from Triage) Patient Medical History PMH Reviewed/Updated as Needed: Yes PMH/PSH from Triage: Medical History (Updated 02/20/20 @ 13:30 by TYSON Jacob) Arthritis (Medical) M19.90 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 Environmental allergies (Medical) Z91.09 Essential (primary) hypertension (Medical) I10 GERD (gastroesophageal reflux disease) (Medical) K21.9 Hearing deficit (Medical) H91.90 History of CVA (cerebrovascular accident) (Medical) Z86.73 History of IBS (Medical) Z87.19 Laceration (Medical) Liver disease (Medical) K76.9 Lymphocytosis (Medical) D72.820 Osteoporosis (Medical) M81.0 Prediabetes (Medical) R73.03 Recurrent sinusitis (Medical) J32.9 Urinary incontinence (Medical) R32 Surgical History (Updated 12/16/19 @ 17:53 by Keri Church DO) H/O section (Surgical) Z98.891 History of cervical spinal arthrodesis (Surgical) Z98.1 History of extraction of renal calculus (Surgical) Z98.890, Z87.442 History of hysterectomy (Surgical) Z90.710 History of nasal surgery (Surgical) Z98.890 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 History of throat surgery (Surgical) Z98.890 Hx Drug Resistant Infections Hx MRSA: (Methicillin-resistant Staphylococcus aureus): No Hx VRE (Vancomycin-resistant enterococci): No Hx C.Diff: No Hx CRKP: No Hx Other Resistant Infection?: No Isolation: Standard precautions Hx Recent Travel Out of the country within 10 days (where): No Hx Fever: No Hx Fever with a rash?: No Nurse screening for coronavirus: Recent Travel outside the No country (where) Has patient experienced No coronavirus symptoms Social History Does patient have suicidal/homicidal thoughts or ideation?: No Are you in a relationship wi th/Does anyone hit you, yell/swear at you, steal from you?: No Substance Use Smoking Status: Former smoker Tobacco Use Hx Chewing Tobacco Use: No Vaccination History Hx/Date of Tetanus, Diphtheria Vaccination: Yes Hx/Date of Influenza Vaccination: Yes Hx/Date of Pneumococcal Vaccination: Yes PFSH Medical History Arthritis Cavernoma Environmental allergies Essential (primary) hypertension GERD (gastroesophageal reflux disease) Hearing deficit History of CVA (cerebrovascular accident) History of IBS Laceration Liver disease L ymphocytosis Osteoporosis Prediabetes Recurrent sinusitis Urinary incontinence Surgical History H/O section History of cervical spinal arthrodesis History of extraction of renal calculus History of hysterectomy History of nasal surgery History of splenectomy History of throat surgery Family History Mother Diabetes Colon cancer Heart disease Uterine cancer Rheumatic fever Rheumatoid arthritis Father Alcohol abuse Small cell lung cancer Cirrhosis Sister Breast cancer Social History Does the Patient have a Healthcare Proxy: No Does Patient have a DNR?: No Does Patient have a Living Will?: Yes highest education level completed: Associate degree: occupational, technical, vocational program Hx Recent Travel (where): No we ll-balanced diet: daily high-fat food intake: 0-1 times daily daily servings fruits/ve-4 daily servings of milk/calcium: 5 or more eating out: 1-3 times/week reads food labels: usually or always Smoking Status: Former smoker alcohol intake: current alcohol intake frequency: 0-2 drinks per day substance use type: does not use seatbelt 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 water heater temp set < 120 deg: Yes working smoke detector in home: Yes fire extinguisher in home: Yes carbon monox detector in home: No firearms in home: No victim of physical abuse: No victim of emotional abuse: No ROS Review of Systems Constitutional: Denies fever and weakness Respiratory: Denies SOB Cardiovascular: Denies chest pain Gastrointestinal: Denies abdominal pain Musculoskeletal: Reports neck pain; Denies arm pain Skin/Breasts: Denies rash Neurologic: Denies weakness and numbness Physical Exam General Physical Exam Narrative: small, wd woman, sitting upright wear soft collar, no distress at rest Limitations: no limitations General appearance: alert and in no apparent distress Head Head exam: Present atraumatic, normocephalic and normal inspection Eye Eye exam: Present normal apperance; Absent conjunctival injection ENT ENT exam: Present normal exam, normal orophraynx and mucous membranes moist Neck Neck exam: Present normal inspection and tenderness (L upper lateral soft tissue tenderness); Absentfull ROM (due to pain) Respiratory Respiratory exam: Present normal lung sounds bilaterally; Absent respiratory distress Cardiovascular Cardiovascular Exam: Present regular rate and normal rhythm GI/Abdominal GI/Abdominal exam: Present Abd soft, bowel sounds present all quadrents; Absent tenderness Extremities Exam Extremities exam: Present normal inspection and full ROM; Absent tenderness Back Exam Back exam: Present normal inspection and full ROM; Absent tenderness Neurological Exam Neurological exam: Present alert and oriented X3; Absent motor sensory deficit Psychiatric Psychiatric exam: Present normal affect and normal mood Skin Skin exam: Present warm, dry, intact and normal color Vital Signs Vital Signs: Vital Signs 05/02/20 09:18 Temperature 98.7 F Pulse Rate 60 Respiratory Rate 16 Blood Pressure 156/82 O2 Sat by Pulse Oximetry 96 MDM (comprehensive) Medical Decision Making Free Text/Narative:: The patient was evaluated for neck pain and stiffness. The PE was significant for decreased ROM of the neck due to pain and soft tissue tenderness. She was treated with Decadron. Plan Plan Plan: d/c home Plan of care: Pain control discussed with patient, Activity limitations discussed with patient/family, Follow up appointments discussed, Plan of care discussed with patient and or family,Patient encouraged to ask questions about plan and Patient agrees with plan of care Discharge Plan Admission/Discharge Dx Primary DC Diagnosis: Torticollis ED Provider: Apollo Valente ED Status: Discharged Time Seen by Provider: 05/02/20 09:23 Triaged At: 05/02/20 08:58 Condition Condition: Stable Discharge Detail Disposition: Home, Self-Care Med Rec New Prescriptions: New methylprednisolone [Medrol (Jarred)] 4 mg tablets,dose pack See Rx Instructions .ROUTE .COMPLEX Qty: 21 RF: 0 No Action aspirin [Adult Aspirin Regimen] 81 mg tablet,delayed release (DR/EC) 81 mg PO QDAY RF: 0 lisinopril 20 mg tablet 20 mg PO QDAY Qty: 90 RF: 3 pantoprazole [Protonix] 40 mg tablet,delayed release (DR/EC) 40 mg PO QDAY Qty: 90 RF: 3 acetaminophen [Tylenol] 325 mg tablet 350 - 650 mg PO HS Qty: 180 RF: 3 duloxetine [Cymbalta] 30 mg capsule,delayed release(DR/EC) 30 mg PO QDAY Qty: 90 RF: 4 rifaximin 550 mg tablet 550 mg PO DAILY Qty: 90 RF: 4 docusate sodium [Colace] 100 mg capsule 100 mg PO QDAY Qty: 90 RF: 4 multivitamin Tablet 1 tab PO QDAY Qty: 90 RF: 4 calcium carbonate-vitamin D3 500 mg(1,250mg) -200 unit tablet 1 tab PO QDAY Qty: 90 RF: 3 hydroxychloroquine 200 mg tablet 200 mg PO BID Qty: 180 RF: 3 fexofenadine 180 mg tablet 180 mg PO Q24H Qty: 90 RF: 3 potassium citrate 5 mEq (540 mg) tablet extended release 5 meq PO QDAY Qty: 90 RF: 3 nadolol 20 mg tablet 20 mg PO QDAY Qty: 90 RF: 3 ascorbate calcium (vitamin C) 500 mg tablet 500 mg PO QDAY Qty: 90 RF: 3 warfarin [Coumadin] 4 mg tablet 4 mg PO DAILY Qty: 90 RF: 3 gabapentin 100 mg capsule 100 mg PO BID Qty: 180 RF: 3 gabapentin 400 mg capsule 400 mg PO QDAY Qty: 90 RF: 3 warfarin [Coumadin] 1 mg tablet 1 mg PO DAILY Qty: 90 RF: 3 warfarin 5 mg tablet 5 mg PO QDAY Qty: 90 RF: 3 magnesium oxide 400 mg magnesium tablet 400 mg PO QDAY Qty: 90 RF: 3 Restasis 0.05 % dropperette 1 drops OU Q12H Qty: 60 RF: 1 Medications Medication reconciliation performed by provider at discharge: Yes Follow Up Care/Instructions Diet/Activity/Wound Care..: continue with Medrol, Neurosurgery follow-up as discussed *Discharge Patient* Discharge Orders: Discharge Order (Routine); Ordered 05/02/20 Ordered By: Apollo Valente Discharge Date/Time: 05/02/20 10:17 Interventions Interventions: ED Discharge Instructions Last Done: 05/02/20 10:17 ED Musculoskeletal Last Done: 05/02/20 09:19 Report Signers: <Electronically signed by Apollo Valente MD> Apollo Valente MD 05/02/20 1422 Apollo Valente MD SIGNATURE DA Report Cosigners: D: VEL 05/02/20930 T: VEL 05/02/20930 CC: Keri Church DO Name Value Range Interpretation Code Description Data Julianna rce(s) Supporting Document(s) ID Date Data Source [id number] 03/30/2020 03:14:00 PM EDT [facility] Patient Name: [place] MCMANUS : 1950 Sex: F Pt Unit #: [id number] Location:[facility] Provider: Visit Date/Time: 03/30/20 Primary Insurance: MEDICARE UPSTATE Secondary Insurance: FOR LIFE Intake Vital Signs 03/30/20 15:17 Current Height 4 ft 10 in Current Weight 158 lb Weight Measurement Method Standing Scale BMI 33.0 BP 116/80 Blood Pressure Location Lt brachial Position Sitting Respiration 18 Pulse 49 L Pulse Strength Normal Pulse Source Pulse Oximeter Temp 97.8 F Temp Source Tympanic Pulse Oximetry (%) 93 L Oxygen Delivery Method room air Intake Visit Reasons: Foot injury Nurse Note: Pt presents today for a right foot injury that she received yesterday. She was walking upstairs and stubbed her foot. Pt tx with ice to the area and took some Tylenol. Pt had called her PCP, Dr Church but he was unable to see her today. He did order an xray which she has already completed. It has not been read yet. 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 Accompanied by: Self / Same as Patient Is patient in pain?: Yes (right foot) Pain scale (1- 10): 7 Allergies codeine [CODEINE] Allergy (Unknown, Verified 04/14/19 10:01) diazepam [From VALIUM] Allergy (Unknown, Verified 04/14/19 10:01) flurazepam [From DALMANE] Allergy (Unknown, Verified 04/14/19 10:01) levofloxacin [From LEVAQUIN] Allergy (Unknown, Verified 04/14/19 10:01) meperidine [From DEMEROL] Allergy (Unknown, Verified 04/14/19 10:01) nitrofurantoin [From MACROBID] Allergy (Unknown, Verified 04/14/19 10:01) rabeprazole [From ACIPHEX] Allergy (Unknown, Verified 04/14/19 10:01) Sulfa (Sulfonamide Antibiotics) [SULFA (SULFONAMIDE ANTIBIOTICS)] Allergy (Unknown, Verified 04/14/19 10:01) Is last menstrual period known: No Post menopausal: No Patient : No Vision Wearing glasses?: Yes Fall Risk History of falls: Yes Ambulatory Aid:: None Gait/Transferring:: Weak Medications:: No High Risk Medications Fall Risk education: Pt had a stroke in October and has vision and balance issues. HIV Testing Offer - ages 13-64 HIV testing Offer: No Requirement for HIV testing offer been met?: Patient reports past refusal Hep C Testing Offered: No Hep C Requirement met: Patient reports past refusal SBIRT Annual Questionnaire Are you currently in recovery for alcohol or substance use?: No How many times in the past year have you had 4 or more drinks in a day?: None How many times in the past year have you used a recreational drug or used a prescription medication for nonmedical reasons?: None Do you need a note to return Do you need a note to return to daycare/school/sports/work: No Coronavirus Screening Screening Have you traveled outside of [facility] or [facility] in the last 14 days.: No Has patient experienced coronavirus symptoms: No [facility] Medical History Arthritis Cavernoma Environmental allergies Essential (primary) hypertension GERD (gastroesophageal reflux disease) Hearing deficit History of CVA (cerebrovascular accident) History of IBS Laceration Liver disease Lymphocytosis Osteoporosis Prediabetes Recurrent sinusitis Urinary incontinence Surgical History H/O section History of cervical spinal arthrodesis History of extraction of renal calculus History of hysterectomy History of nasal surgery History of splenectomy History of throat surgery Family History Mother Diabetes Colon cancer Heart disease Uterine cancer Rheumatic fever Rheumatoid arthritis Father Alcohol abuse Small cell lung cancer Cirrhosis Sister Breast cancer Social History Does the Patient have a Healthcare Proxy: Yes (TING JUAN) Does Patient have a DNR?: No Does Patient have a Living Will?: Yes highest education level completed: Associate degree: occupational, technical, vocational program Hx Recent Travel (where): No well-balanced diet: daily high-fat food intake: 0-1 times daily daily servings fruits/ve-4 daily servings of milk/calcium: 5 or more eating out: 1-3 times/week reads food labels: usually or always alcohol intake: current alcohol intake frequency: 0-2 drinks per day substance use type: does not use seatbelt 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 She was going up concrete steps when she jammed her foot into the step, in a mis-step. There was pain note along the lateral edge of the foot worse at the base of the 5th digit. The foot became more swollen overnight and is now quite bruised as well. She iced it. She is already on regular doses of Tylenol and Gabapentin. She called her PCP whocould not see her but ordered an x-ray. Review of Systems Const Reports system reviewed and no additional complaints, except as documented Details: general health good Musc Reports as per HPI Exam Const General: cooperative, healthy appearing, well developed and acute distress Orientation: alert, awake and oriented x3 HENMT Head: normocephalic Ears: hearing grossly normal bilaterally Eyes Alignment and Position: alignment normal Conjunctivae: conjunctivae normal Sclera: sclerae normal Resp Other: respiratory rate in normal range Cardio Other: heart rate in normal range Musc Other: walks in with a limp favoring right foot and is putting more pressure on mid foot and heel than her forefoot Skin Hair: normal Nails: normal Other: warm and dry, skin texture normal, color good Extrem General: capillary refill normal and no calf tenderness bilaterally Other: right foot slightly swollen, bruise purplish in color from mid foot to to es. Very tender at base of fifth digit to light touch. She is able to flex toes, but limited due to swelling and pain. Foot flexion and extension normal. Good pedal pulse. Full ROM right knee. Psych Appearance: grossly normal Mental Status: mental status grossly normal Mood: congruent mood Affect: normal affect Attitude: cooperative Thought Process: normal Assessment Plan Assessment Plan (1) Injury of foot: Code(s): S99.929A - Unspecified injury of unspecified foot, initial encounter Qualifiers: Laterality: right Plan - TYSON Jacob: Advised patient she could have possibly fractured the 5th toe. After waiting for 1 hour we still didnot have the x-ray report. We yamilet taped the 4th and 5th toes and wrapped the foot in an Anthony bandage. We will call her tomorrow with the results and a plan of care. Electronically Signed By: <Electronically signed by Anum MEHTA> Date/Time Signed: 03/30/20 1644 Name Value Range Interpretation Code Description Data Julianna rce(s) Supporting Document(s) ID Date Data Source [id number] 03/30/2020 03:09:00 PM EDT [facility] [address] [place] [address] [phone] NAME SEX PT STATUS ACCOUNT NUMBER [place] MCMANUS REG REF [id number] ORDERING PHYSICIAN LOCATION MEDICAL RECORD NO. Keri DO Ranjit RAD [id number] ATTENDING PHYSICIAN DATE OF DATE OF EXAM/TIME Keri Church DO 1950 03/30/20 / 1508 TYPE / EXAM Xray Foot Complete RT REASON FOR EXAM Stub toe foot,bruise ,painful R/O fracture [place] MCMANUS [id number] 1950 ADDENDUM CRITICAL RESULT COMMUNICATED TO ARY [...] 1724 Date Time CC: Pasha Uribe MD; Keri Church DO Techn: ERMELINDA Trans Dt/Tm: Trans by: DT Prt Dt/Tm: 4523-5262: Total DLP = 0.00 mGy-cm Fluoroscopy Time (in secs): Name Value Range Interpretation Code Description Data Julianna rce(s) Supporting Document(s) ID Date Data Source [id number] 03/08/2020 10:20:00 AM EDT [facility] Patient Name: KY MCMANUS : 1950 Sex: F Pt Unit #: [id number] Location:[facility] Provider: Visit Date/Time: 03/08/20 Primary Insurance: MEDICARE [employer]STATE Secondary Insurance: [employer] FOR LIFE Intake Vital Signs 03/08/20 10:22 Current Height 4 ft 10 in Current Weight 158 lb 2 oz Weight Measurement Method Standing Scale BMI 33.0 BP 122/78 Position Sitting Respiration 18 Pulse 100 Temp 98.2 F Temp Source Oral Pulse Oximetry (%) 97 Oxygen Delivery Method room air Intake-Medicare Annual Visit Reasons: Medicare Annual Wellness - Initial 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 Accompanied by: Daughter Is patient in pain?: Yes ((R) hip) Pain scale (1-10): 5 Allergies codeine [CODEINE] Allergy (Unknown, Verified 04/14/19 10:01) diazepam [From VALIUM] Allergy (Unknown, Verified 04/14/19 10:01) flurazepam [From DALMANE] Allergy (Unknown, Verified 04/14/19 10:01) levofloxacin [From LEVAQUIN] Allergy (Unknown, Verified 04/14/19 10:01) meperidine [From DEMEROL] Allergy (Unknown, Verified 04/14/19 10:01) nitrofurantoin [From MACROBID] Allergy (Unknown, Verified 04/14/19 10:01) rabeprazole [From ACIPHEX] Allergy (Unknown, Verified 04/14/19 10:01) Sulfa (Sulfonamide Antibiotics) [SULFA (SULFONAMIDE ANTIBIOTICS)] Allergy (Unknown, Verified 04/14/19 10:01) Feel stressed/tense/nervous/anxious/difficulty sleeping: not at all Medications acetaminophen (Tylenol) 350 - 650 mg (1.0769 - 2 x 325 mg) PO HS ascorbate calcium (vitamin C) 500 mg PO QDAY aspirin (Adult Aspirin Regimen) 81 mg PO QDAY calcium carbonate-vitamin D3 500 mg(1,250mg) -200 unit 1 tab PO QDAY cyclosporine 0.05% (Restasis) 1 drop BOTH EYES (OU) Q12H docusate sodium (Colace) 100 mg PO QDAY duloxetine (Cymbalta) 30 mg PO QDAY fexofenadine 180 mg PO Q24H gabapentin 100 mg PO BID gabapentin 400 mg PO QDAY hydroxychloroquine 200 mg PO BID lisinopril 20 mg PO QDAY magnesium oxide 400 mg PO QDAY multivitamin 1 tab PO QDAY nadolol 20 mg PO QDAY pantoprazole (Protonix) 40 mg PO QDAY potassium citrate ER 5 mEq PO QDAY rifaximin 550 mg PO DAILY warfarin (Coumadin) 4 mg See Protocol PO DAILY warfarin 5 mg See Protocol PO DIRECTED warfarin (Coumadin) 1 mg See Protocol PO DAILY Fall Risk History of falls: Yes (States she has had several falls in the last year,not recent) Ambulatory Aid:: None Gait/Transferring:: Weak Medications:: Antihypertensives How often do you have a drink containing alcohol?: monthly or less (states once a week) How often do you have 6 or more drinks on 1 occasion?: never AUDIT-C Alcohol total score: Answ all for result. HIV testing Offer: No Requirement for HIV testing offer been met?: Not in age range Hep C Testing Offered: No Hep C Requirement met: Refuses today Coronavirus Screening Screening Have you traveled outside of [facility] or [facility] in the last 14 days.: No Has patient experienced coronavirus symptoms: No PFSH Medical History (Updated 02/20/20 @ 13:30 by TYSON Jacob) Arthritis Cavernoma Environmental allergies Essential (primary) hypertension GERD (gastroesophageal reflux disease) Hearing deficit History of CVA (cerebrovascular accident) History of IBS Laceration Liver disease Lymphocytosis Osteoporosis Prediabetes Recurrent sinusitis Urinary incontinence Surgical History H/O section History of cervical spinal arthrodesis History of extraction of renal calculus History of hysterectomy History of nasal surgery History of splenectomy History of throat surgery Family History Mother Diabetes Colon cancer Heart disease Uterine cancer Rheumatic fever Rheumatoid arthritis Father Alcohol abuse Small cell lung cancer Cirrhosis Sister Breast cancer Social History (Updated 03/08/20 @ 10:24 by Theresa Middleton) Does the Patient have a Healthcare Proxy: Yes (TING JUAN) Does Patient have a DNR?: No Does Patient have a Living Will?: Yes highest education level completed: Associate degree: occupational, technical, vocational program Hx Recent Travel (where): No well-balanced diet: daily high-fat food intake: 0-1 times daily daily servings fruits/ve-4 daily servings of milk/calcium: 5 or more eating out: 1-3 times/week reads food labels: usually or always Smoking Status: Former smoker alcohol intake: current alcohol intake frequency: 0-2 drinks per day substance use type: does not use seatbelt 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 water heater temp set < 120 deg: Yes working smoke detector in home: Yes fire extinguisher in home: Yes carbon monox detector in home: No firearms in home: No victim of physical abuse: No victim of emotional abuse: No Sickle cell Sickle Cell Screening:: Not indicated Medicare Annual Wellness Type Of Examation Type of Exam: Subsequent Wellness Exam EKG EKG Performed: No Medication list Medications acetaminophen (Tylenol) 350 - 650 mg (1.0769 - 2 x 325 mg) PO HS ascorbate calcium (vitamin C) 500 mg PO QDAY aspirin (Adult Aspirin Regimen) 81 mg PO QDAY calcium carbonate-vitamin D3 500 mg(1,250mg) -200 unit 1 tab PO QDAY cyclosporine 0.05% (Restasis) 1 drop BOTH EYES (OU) Q12H docusate sodium (Colace) 100 mg PO QDAY duloxetine (Cymbalta) 30 mg PO QDAY fexofenadine 180 mg PO Q24H gabapentin 100 mg PO BID gabapentin 400 mg PO QDAY hydroxychloroquine 200 mg PO BID lisinopril 20 mg PO QDAY magnesium oxide 400 mg PO QDAY multivitamin 1 tab PO QDAY nadolol 20 mg PO QDAY pantoprazole (Protonix) 40 mg PO QDAY potassium citrate ER 5 mEq PO QDAY rifaximin 550 mg PO DAILY warfarin (Coumadin) 4 mg See Protocol PO DAILY warfarin 5 mg See Protocol PO DIRECTED warfarin (Coumadin) 1 mg See Protocol PO DAILY Allergies Allergies codeine [CODEINE] Allergy (Unknown, Verified 04/14/19 10:01) diazepam [From VALIUM] Allergy (Unknown, Verified 04/14/19 10:01) flurazepam [From DALMANE] Allergy (Unknown, Verified 04/14/19 10:01) levofloxacin [From LEVAQUIN] Allergy (Unknown, Verified 04/14/19 10:01) meperidine [From DEMEROL] Allergy (Unknown, Verified 04/14/19 10:01) nitrofurantoin [From MACROBID] Allergy (Unknown, Verified 04/14/19 10:01) rabeprazole [From ACIPHEX] Allergy (Unknown, Verified 04/14/19 10:01) Sulfa (Sulfonamide Antibiotics) [SULFA (SULFONAMIDE ANTIBIOTICS)] Allergy (Unknown, Verified 04/14/19 10:01) Current Diet Current diet: regular PHQ-2/9 Over the last 2 weeks, how often have you been bothered by any of the following problems? 1. Little interest or pleasure in doing things: not at all 2. Feeling down, depressed, or hopeless: several days Total score: 1 If score is 2 greater, continue 3. Trouble falling or staying asleep, or sleeping too much: not at all 4. Feeling tired or having little energy: not at all 5. Poor appetite or overeating: not at all 6. Feeling bad about yourself - or that you are a failure or have let yourself and your family down:several days 7. Trouble concentrating on things, such as reading the newspaper or watching television: more than half the days 8. Moving or speaking so slowly that other people could have noticed? - Or the opposite - being so fidgety or restless that you have been moving around a lot more than usual: not at all 9. Thoughts that you would be better off or of hurting yourself in some way: not at all Total score: 4 If you checked off any problems, how difficult have these problems made it for you to do your work, take care of things at home, or get along with other people?: somewhat difficult Source: Developed by Drs. Vinay Denson, Kaylene Rivas, Yanick Dumont and colleagues, with an educational madhav from [employer]. Vision [place] VA Far - right eye: 20/50 VA Far - left eye: 20/40 VA Far - bilateral eyes: 20/40 Functional Assessment Bathing: Independent Dressing: Independent Toileting: Independent Transferring: Independent Continence: Independent Feeding: Independent Total Score: 6 Home Safety Home Safety: Reports Bathroom: Grab bars, Lighting: Adequate and Stairs: Handrail available; Denies [place]: No throw rugs Hearing Hearing Left Ear: Normal Hearing Right Ear: Normal Hearing test method: whispered voice IADL Assessment Functional abilities: Up Go test, pt steady, Up Go test, within 30 sec, Pt independent w/phone,Pt independent w/shopping, Pt independent w/housework, Pt independent w/meal preparation, Pt independent w/medication and Pt independent w/finances; negative for Pt independent w/transportationand Pt independent w/l aundry Cognitive Evaluation Oriented to the date:: Yes Oriented to time:: Yes Oriented to place:: Yes Mood: grossly normal Affect: Normal Judgement: normal Needs caregiver for assistance: No Clock drawing: No Clock drawing with correct time: No 3 item recall: 3 HPI Additional HPI HPI Details: 69 YO female with PMH listed is here for both Medicare Annual Wellness as well as f/u on other medical co-morbidities. Last labs 11/24/19. 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 She saw Neurosurgery 12/25/19 and they ordered MRI C-spine. Dr. Burnette/Neurosurgery did a nerve block and she has not had pain since. Review of Systems Const Denies weight gain and Denies weight loss Card Denies chest pain, Denies irregular heart rhythm and Denies dyspnea on exertion Resp Denies cough and Denies dyspnea on exertion Exam Const General: cooperative, healthy appearing and comfortable Neck Thyroid: abnormal thyroid Carotids: no bruits Lymphatic: lymphadenopathy noted Chest Chest: normal inspection of the chest Resp Auscultation: clear to auscultation bilaterally, no rales, no rhonchi and no wheezes Cardio Rhythm: regular rhythm Heart Sounds: S1 normal, S2 normal, no gallops, no murmurs and no rubs Neuro General: patient alert, patient awake, patient oriented x3 and CN's II-XI intact bilaterally Cognition: normal cognition Speech: speech normal Gait: normal gait Motor: muscle tone normal throughout Extrem General: normal to inspection and no edema Quality Reporting Depression/Bipolar (159/160/161/169/177) Total score: 4 Assessment Plan Assessment Plan (1) Initial Medicare annual wellness visit: Code(s): Z00.00 - Encounter for general adult medical examination without abnormal findings Plan - Keri Church, DO: Medicare Annual Wellness Exam. Cervical Fusion and headaches vastly improved s/p injection into neck. Blurry vison. Hx DM2. Last A1c 6.4. Finger Stick Glucose 114. Consult Ophthalmology. (2) Blurry vision: Code(s): H53.8 - Other visual disturbances Orders: Referrals: Ophthalmology Referral Orders Other Orders: Orders: CMP 3 Months R73.03 LIPID PANEL 3 Months I10, R73.03 Microalbumin/Creat Ratio - ACR 3 Months R73.03 CBC W AUTO DIFF 3 Months R73.03 HGBA1C + EAG 3 Months R73.03, R73.09 Vitamin D 25-OH 3 Months M81.0 PHQ-9 Over the last 2 weeks, how often have you been bothered by any of the following problems? 1. Little interest or pleasure in doing things: not at all 2. Feeling down, depressed, or hopeless: several days 3. Trouble falling or staying asleep, or sleeping too much: not at all 4. Feeling tired or having little energy: not at all 5. Poor appetite or overeating: not at all 6. Feeling bad about yourself - or that you are a failure or have let yourself and your family down:several days 7. Trouble concentrating on things, such as reading the newspaper or watching television: more than half the days 8. Moving or speaking so slowly that other people could have noticed? - Or the opposite - being so fidgety or restless that you have been moving around a lot more than usual: not at all 9. Thoughts that you would be better off or of hurting yourself in some way: not at all Total score: 4 If you checked off any problems, how difficult have these problems made it for you to do your work, take care of things at home, or get along with other people?: somewhat difficult Source: Developed by Drs. Vinay Denson, Kaylene Rivas, Yanick Dumont and colleagues, with an educational madhav from [employer]. Electronically Signed By: <Electronically signed by Keri Church DO> Date/Time Signed: 03/08/20 1134 Name Value Range Interpretation Code Description Data Julianna rce(s) Supporting Document(s) ID Date Data Source [id number] 02/20/2020 12:56:00 PM EDT [facility] Patient Name: [place] MCMANUS : 1950 Sex: F Pt Unit #: [id number] Location:AMB.EXT Provider: Visit Date/Time: 02/20/20 Primary Insurance: MEDICARE [employer] Secondary Insurance: FOR LIFE Intake Vital Signs 02/20/20 12:58 Current Height 4 ft 8 in Current Weight 158 lb 2 oz Weight Measurement Method Standing Scale BMI 35.4 BP 110/72 Blood Pressure Location Lt brachial Position Sitting Respiration 18 Pulse 56 L Pulse Strength Normal Pulse Source Pulse Oximeter Temp 98.1 F Temp Source Oral Pulse Oximetry (%) 95 Oxygen Delivery Method room air Intake Visit Reasons: Wound Care Nurse Note: Pt presents today for a dog scratch on her right wrist that she received on Sunday. Itdoes not seem to be healing and is red and draining. She did clean it and applied Neosporin and has kept it covered. Pt did note that the dog is up to date on all shots. 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 Accompanied by: Daughter Is patient in pain?: Yes (right wrist) Pain scale (1-10): 4 Allergies codeine [CODEINE] Allergy (Unknown, Verified 04/14/19 10:01) diazepam [From VALIUM] Allergy (Unknown, Verified 04/14/19 10:01) flurazepam [From DALMANE] Allergy (Unknown, Verified 04/14/19 10:01) levofloxacin [From LEVAQUIN] Allergy (Unknown, Verified 04/14/19 10:01) meperidine [From DEMEROL] Allergy (Unknown, Verified 04/14/19 10:01) nitrofurantoin [From MACROBID] Allergy (Unknown, Verified 04/14/19 10:01) rabeprazole [From ACIPHEX] Allergy (Unknown, Verified 04/14/19 10:01) Sulfa (Sulfonamide A ntibiotics) [SULFA (SULFONAMIDE ANTIBIOTICS)] Allergy (Unknown, Verified 04/14/19 10:01) Is last menstrual period known: No Post menopausal: No Patient : No Fall Risk History of falls: No Ambulatory Aid:: None Gait/Transferring:: Normal Medications:: Analgesics and Antihypertensives HIV Testing Offer - ages 13-64 HIV testing Offer: No Requirement for HIV testing offer been met?: Not in age range Hep C Testing Offered: No Hep C Requirement met: Patient reports past refusal SBIRT Annual Questionnaire Are you currently in recovery for alcohol or substance use?: No How many times in the past year have you had 4 or more drinks in a day?: None How many times in the past year have you used a recreational drug or used a prescription medication for nonmedical reasons?: None Do you need a note to return Do you need a note to return to daycare/school/sports/work: No Coronavirus Screening Screening Have you traveled outside of [facility] or [facility] in the last 14 days.: No Has patient experienced coronavirus symptoms: No PFSH Medical History Arthritis [place] Environmental allergies Essential (primary) hypertension GERD (gastroesophageal reflux disease) Hearing deficit History of CVA (cerebrovascular accident) History of IBS Liver disease Lymphocytosis Osteoporosis Prediabetes Recurrent sinusitis Urinary incontinence Surgical History H/O section History of cervical spinal arthrodesis History of extraction of renal calculus History of hysterectomy History of nasal surgery History of splenectomy History of throat surgery Family History Mother Diabetes Colon cancer Heart disease Uterine cancer Rheumatic fever Rheumatoid arthritis Father Alcohol abuse Small cell lung cancer Cirrhosis Sister Breast cancer Social History Does the Patient have a Healthcare Proxy: Yes (ITNG JUAN) Does Patient have a DNR?: No Does Patient have a Living Will?: Yes highest education level completed: Associate degree: occupational, technical, vocational program Hx Recent Travel (where): No well-balanced diet: daily high-fat food intake: 0-1 times daily daily servings fruits/ve-4 daily servings of milk/calcium: 5 or more eating out: 1-3 times/week reads food labels: usually or always alcohol intake: current alcohol intake frequency: 0-2 drinks per day substance use type: does not use seatbelt 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 Daughter is concerned about possible infection, some enlargement of redness moving distally. She is on blood thinner and there is minimally bleeding. Review of Systems Const Denies chills, Denies fatigue and Denies fever(s) Skin/Breast Reports system reviewed and no additional complaints, except as documented and Reports as per HPI Endo Denies fatigue Exam Const General: cooperative, healthy appearing and no acute distress Orientation: awake and oriented x3 HENMT Head: normocephalic Ears: hearing grossly normal bilaterally Eyes Alignment and Position: alignment normal Conjunctivae: conjunctivae normal Sclera: sclerae normal Musc Other: walked in Skin Trauma: other Wounds: wounds noted Other: right back of forearm just above wrist 4 cm laceration about 1/8 inch deep edges somewhat ragged. Small about of bleeding. Immediate tissues surrounding area slightly red. No induration. No drainage. not hot to touch. very small bleeding still noted. Psych Appearance: grossly normal and well kempt Mood: congruent mood Affect: normal affect Attitude: cooperative Thought Process: normal Assessment Plan Assessment Plan (1) Encounter for wound care: Code(s): Z51.89 - Encounter for other specified aftercare (2) Laceration: Status: Acute SNOMED Code(s) : 367637054 Category: Medical Additional Comments Additional Comments: patient and daughter advised to continue using Neosporin and monitoring for signs of infection. They are to follow up here or with PCP for any concerns of infection. Electronically Signed By: <Electronically signed by Anum MEHTA> Date/Time Signed: 02/20/20 1330 Name Value Range Interpretation Code Description Data Julianna rce(s) Supporting Document(s) ID Date Data Source [id number] 02/05/2020 01:45:00 PM EDT [facility] Name Value Range Interpretation Code Description Data Julinana rce(s) Supporting Document(s) Prothrombin Time (Patient) 24.3 s 9.6-12.3 Above high normal [facility] INR 2.4 0.9-1.1 Above high normal [facility] THE INR IS OPERATIONALLY DEFINED FOR ALEXIS SH PLASMA FROMPATIENTS STABILIZED ON ORAL ANTICOAGULANTS.ROUTINE ANTICOAGULANT THERAPY 2.0-3.0RECURRENT SYSTEMIC EMBOLISM/HEART VALVE REPLACEMENT 2.5-3.5 ID Date Data Source [id number] 01/02/2020 10:31:00 AM EDT [facility] [address] [place] [id number] [phone] NAME SEX PT STATUS ACCOUNT NUMBER [place] MCMANUS REG REF [id number] ORDERING PHYSICIAN LOCATION MEDICAL RECORD NO. Yan Coto DO MRI [id number] ATTENDING PHYSICIAN DATE OF DATE OF EXAM/TIME Keri Church DO 1950 12[birth year]/191515 TYPE / EXAM [...] foraminal stenosis. C3-C4: A moderate, broad-based disc [place] complex is seen. It is associated with [...] 1051 Date Time CC: Pasha Uribe MD; Keri Church DO Techn: DIONTE Trans Dt/Tm: Trans by: DT Prt Dt/Tm: : Total DLP = 0.00 mGy-cm : Total Radiation Dose = 0.0000 mSv Lifetime Dose: 1.9313 mSv Name Value Range Interpretation Code Description Data Julianna rce(s) Supporting Document(s) ID Date Data Source [id number] 12/22/2019 02:54:00 PM EDT [facility] Name Value Range Interpretation Code Description Data Julianna rce(s) Supporting Document(s) Prothrombin Time (Patient) 26.4 s 9.6-12.3 Above high normal [facility] INR 2.7 0.9-1.1 Above high normal [facility] THE INR IS OPERATIONALLY DEFINED FOR ALEXIS SH PLASMA FROMPATIENTS STABILIZED ON ORAL ANTICOAGULANTS.ROUTINE ANTICOAGULANT THERAPY 2.0-3.0RECURRENT SYSTEMIC EMBOLISM/HEART VALVE REPLACEMENT 2.5-3.5 ID Date Data Source [id number] 12/25/2019 02:26:00 PM EDT [facility] Name Value Range Interpretation Code Description Data Julianna rce(s) Supporting Document(s) Pathologist interpretation of Unspecified specimen tests . [facility] Lymphocytosis. No significant diagnostic immunophenotypic abnormalitydetected. (See comment.) Annotation comment [Interpretation] Narrative Comment . [facility] Lymphocytosis is due to increases in T s uppressor cells and B cells.Increases in multiple lymphocyte subsets may suggest a reactive process.Clinical correlation is recommended. Specimen source [Identifier] of Unspecified specimen . [facility] Peripheral blood Alcohol-substance abuse rehabilitation t reatment plan, Assessment information Set Comment . [facility] ital No monoclonal B cell population is detec mariana. kappa:lambda ratio 2.0An absolute increase in B [...] cells 19%, LGLs 14%, NK cells 3%. Viable cells/100 cells in Unspecified specimen Comment . [facility] 96% Cellularity assessment [Interpretation] in Unspecified specimen by Flow cytometry (FC) Narrative Comment . [facility] 8 color analysis with CD45/SSC Immunophenotyping study Comment . [facility] CD2 Normal CD3 Lila lCD4 Normal CD5 NormalCD7 Normal CD8 QxbcumJW64 Normal CD11b VlhjwgKG24 Normal CD14 QwfhgkNC09 Normal CD19 XuhjghBI47 Normal CD23 See XoefDJ84 Normal CD34 ByhjpbMR91 Normal CD45 MkvmroAE82 See Text CD57 BcnsmkFU206 Normal HLA-DR NormalKAPPA Normal LAMBDA JewawwXO42 Normal Pathologist name . [facility] Jerod Del Rosario. Clinical information Comment . [facility] LymphocytosisAccompanying CBC dated 12/16 shows:WBC count 10.9, Hgb 14.5, Garret 3.4, Lym 5.5, Lym% 50, Mon 1.3, Mon% 12, Eos0.6, Eos% 5, Bas 0.1, Plt 289K. Lymphoma panel - Unspecified specimen by Flow cytometry (FC) Comment . [facility] Each antibody in this assay was utilized to assess forpotential abnormalities of studied cell populations or tocharacterize identified abnormalities.This test was developed and its performance characteristicsdetermined by [employer]. It has not been cleared or approvedby the U.S. Food and Drug Administration.The FDA has determined that such clearance or approval isnot necessary. This test is used for clinical purposes. Itshould not be regarded as investigational or for research.Performed at: [facility] [id number] [facility] [place] [id number] Director: Alphonse Putnam MD, Phone: [phone] at: [facility] [id number] [place], [place] [id number] Director: Alphonse Putnam MD, Phone: [phone] ID Date Data Source [id number] 12/17/2019 01:08:00 PM EDT [facility] @12/17/19 1242: MANUAL DIFF added. RFLXG = DIFF. @12/17/19 1242: MANUAL DIFF added. RFLXG = DIFF. @12/17/19 1242: MANUAL DIFF added. RFLXG = DIFF. Name Value Range Interpretation Code Description Data Julianna rce(s) Supporting Document(s) Prothrombin Time (Patient) 18.6 s 9.6-12.3 Above high normal [facility] INR 1.9 0.9-1.1 Above high normal [facility] THE INR IS OPERATIONALLY DEFINED FOR ALEXIS SH PLASMA FROMPATIENTS STABILIZED ON ORAL ANTICOAGULANTS.ROUTINE ANTICOAGULANT THERAPY 2.0-3.0RECURRENT SYSTEMIC EMBOLISM/HEART VALVE REPLACEMENT 2.5-3.5 ID Date Data Source [id number] 12/17/2019 01:40:00 PM EDT [facility] @12/17/19 1242: MANUAL DIFF added. RFLXG = DIFF. @12/17/19 1242: MANUAL DIFF added. RFLXG = DIFF. @12/17/19 1242: MANUAL DIFF added. RFLXG = DIFF. Name Value Range Interpretation Code Description Data Julianna rce(s) Supporting Document(s) Leukocytes [#/volume] in Blood by Automated count 10.9 10*3/uL 4.45-10.71 Above high normal [facility] Erythrocytes [#/volume] in Blood by Automated count 4.56 10*6/uL 4.20 -5.40 N [facility] Hemoglobin [Moles/volume] in Blood 14.5 g/dL 10.7-15.4 N [facility] Hematocrit [Volume Fraction] of Blood by Automated count 43.5 % 3 7-47 N [facility] Erythrocyte mean corpuscular volume [Ent itic volume] in Cord blood by Automated count 95.4 fL 80-96 N [facility] ital Erythrocyte mean corpuscular hemoglobin [Entitic mass] by Automated count 31.8 pg 27-31 Above high normal [facility] spital Erythrocyte mean corpuscular hemoglobin concentration [Mass/volume] in Cord blood 33.3 g/dL 33-37 N [facility] ital Erythrocyte distribution width [Entitic volume] by Automated cou nt 16 % 11-15 Above high normal [facility] Platelets [#/volume] in Blood by Automated count 289 10*3/uL 130-472 N [facility] Platelet mean volume [Entitic volume] in Blood 10.9 fL 9.1-13.1 N [facility] Neutrophils/100 leukocytes in Blood by Automated count 31.6 % 41-77 Below low normal [facility] Neutrophils [#/volume] in Blood by Automated count 3.4 U 1.7-7.6 N [facility] Lymphocytes/100 leukocytes in Blood by Automated count 50.2 % 14-46 Above high normal [facility] Lymphocytes [#/volume] in Blood by Automated count 5.5 U 0.6-4.6 Above high normal [facility] @Review & document.@Send for Pathologist review if no previous history Monocytes/100 leukocytes in Blood by Automated count 12.0 % 4-12 N [facility] Monocytes [#/volume] in Blood by Automated count 1.3 U 0.2-1.2 Above high normal [facility] Eosinophils/100 leukocytes in Blood by Automated count 5.1 % 0-7 N [facility] Eosinophils [#/volume] in Blood by Automated count 0.6 U 0.0-0.5 Above high normal [facility] Basophils/100 leukocytes in Blood by Automated count 0.9 % 0.4-1 .3 N [facility] Basophils [#/volume] in Blood by Automated count 0.1 U 0.0-0.2 N [facility] NUCLEATED RED BLOOD CELL 0 % [facility] NUCLEATED RED BLOOD CELL# 0 U [facility] Immature granulocytes [Presence] in Blood by Automated count 0-2 N [facility] Immature granulocytes [#/volume] in Blood by Automated count 0.0 U 0-0.1 N [facility] Manual Differential panel - Blood Manual Diff Added [facility] ID Date Data Source [id number] 12/17/2019 01:40:00 PM EDT [facility] @12/17/19 1242: MANUAL DIFF added. RFLXG = DIFF. @12/17/19 1242: MANUAL DIFF added. RFLXG = DIFF. @12/17/19 1242: MANUAL DIFF added. RFLXG = DIFF. Name Value Range Interpretation Code Description Data Julianna rce(s) Supporting Document(s) Cells counted [#] 100 [facility] Neutrophils [#/volume] in Blood by Manual count 30 % 41-77 Below low normal [facility] Lymphocytes [#/volume] in Blood by Manual count 55 % 14-46 Above high normal [facility] Monocytes [#/volume] in Blood by Manual count 11 % 4-12 N [facility] Eosinophils [#/volume] in Blood by Manual count 4 % 0-7 N [facility] Platelets [#/volume] in Blood by Estimate APPEARS NORMAL NORMAL [facility] Morphology [Interpretation] in Blood Narrative APPEARS NORMAL NORMAL [facility] ID Date Data Source [id number] 12/17/2019 01:40:00 PM EDT [facility] @12/17/19 1242: MANUAL DIFF added. RFLXG = DIFF. @12/17/19 1242: MANUAL DIFF added. RFLXG = DIFF. @12/17/19 1242: MANUAL DIFF added. RFLXG = DIFF. Name Value Range Interpretation Code Description Data Julainna rce(s) Supporting Document(s) Pathologist interpretation of Blood tests [facility] ID Date Data Source [id number] 12/16/2019 04:10:00 PM EDT [facility] Patient Name: [place] MCMANUS : 1950 Sex: F Pt Unit #: [id number] Location:[facility] Provider: Visit Date/Time: 12/16/19 Primary Insurance: MEDICARE [employer] Secondary Insurance: FOR LIFE Intake Vital Signs 12/16/19 16:12 Current Height 4 ft 10 in Current Weight 161 lb Weight Measurement Method Standing Scale BMI 33.6 Respiration 18 Pulse 52 L Temp 97.9 F Temp Source Oral Pulse Oximetry (%) 97 Oxygen Delivery Method room air Intake Visit Reasons: Headache Follow-up Is patient in pain?: Yes (neck and head) Pain scale (1-10): 9 Allergies codeine [CODEINE] Allergy (Unknown, Verified 04/14/19 10:01) diazepam [From VALIUM] Allergy (Unknown, Verified 04/14/19 10:01) flurazepam [From DALMANE] Allergy (Unknown, Verified 04/14/19 10:01) levofloxacin [From LEVAQUIN] Allergy (Unknown, Verified 04/14/19 10:01) meperidine [From DEMEROL] Allergy (Unknown, Verified 04/14/19 10:01) nitrofurantoin [From MACROBID] Allergy (Unknown, Verified 04/14/19 10:01) rabeprazole [From ACIPHEX] Allergy (Unknown, Verified 04/14/19 10:01) Sulfa (Sulfonamide Antibiotics) [SULFA (SULFONAMIDE ANTIBIOTICS)] Allergy (Unknown, Verified 04/14/19 10:01) HIV Testing Offer - ages 13-64 Requirement for HIV testing offer been met?: Not in age range Coronavirus Screening Screening Have you traveled outside of [facility] or [facility] in the last 14 days.: No Has patient experienced coronavirus symptoms: No [facility] Medical History (Updated 10/28/19 @ 14:47 by Keri Church DO) Arthritis (Acute) Cavernoma (Acute) Environmental allergies (Acute) Essential (primary) hypertension (Chronic) GERD (gastroesophageal reflux disease) (Chronic) Hearing deficit (Acute) History of CVA (cerebrovascular accident) (Chronic) History of IBS (Chronic) Liver disease (Acute) Osteoporosis (Chronic) Prediabetes (Acute) Recurrent sinusitis (Chronic) Urinary incontinence (Acute) Surgical History H/O section (Acute) History of extraction of renal calculus (Acute) History of hysterectomy (Acute) History of nasal surgery (Acute) History of splenectomy (Acute) History of throat surgery (Acute) Social History (Updated 12/16/19 @ 16:15 by Theresa Middleton) Does the Patient have a Healthcare Proxy: Yes (TING JUAN) Does Patient have a DNR?: No Does Patient have a Living Will?: Yes highest education level completed: Associate degree: occupational, technical, vocational program Hx Recent Travel (where): No well-balanced diet: daily high-fat food intake: 0-1 times daily daily servings fruits/ve-4 daily servings of milk/calcium: 5 or more eating out: 1-3 times/week reads food labels: usually or always Smoking Status: Former smoker alcohol intake: current alcohol intake frequency: 0-2 drinks per day substance use type: does not use seatbelt 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 Last seen11/25/19 with pre- syncope, possible chronotropic incompetence, cervical spine tenderness. She saw Neurology 12/10/19 and they counseled her on rebound headaches and was advised to use Fioricet and tylenol sparingly. EEG was pending. They had asked for repeat imaging. She declined Physical Therapy for feeling threatened by the COVID 19. I reviewed CT of C-spine with Dr. Bowling/Radiology. No fractures. He asked for X-Rays C-spine so they were ordered and no fracture. Last appt we increased Gabapentin from 100mg AM and 500mg HS to 500mg BID. She was having 9/10 pain on top of head. She had normal Lexiscan Cardiolite Stress Test 11/11/19. She fell once on the Gabapentin 500mg BID and she fell twice. BP's at home 164/77. Her pain is in the back of her head to the top of her head. She states it is a steady 9/10 pain. She states her eyes are blurry. Headache Follow-up* Associated symptoms: Denies chest pain or weight loss Review of Systems Const Denies weight gain and Denies weight loss Card Denies chest pain, Denies irregular heart rhythm and Denies dyspnea on exertion Resp Denies cough and Denies dyspnea on exertion Exam Const General: cooperative, healthy appearing and comfortable Neck Thyroid: abnormal thyroid Carotids: no bruits Lymphatic: lymphadenopathy noted Chest Chest: normal inspection of the chest Resp Auscultation: clear to auscultation bilaterally, no rales, no rhonchi and no wheezes Cardio Rhythm: regular rhythm Heart Sounds: S1 normal, S2 normal, no gallops, no murmurs and no rubs Neuro General: CN's II-XI intact bilaterally Gait: normal gait Extrem General: normal to inspection and no edema Assessment Plan Assessment Plan (1) Headache: Code(s): R51 - Headache Plan - Keri Church DO: Constant headache. Imaging of cervical fusion normal. I strongly suspect this is from her neck. Consult Neurosurgery. She has f/u with Neurology 12/22/19. No change of meds. Anti-coagulation with Coumadin INR 2.5-3.5 and down to 1.4. FS level tomorrow AND PT/INR blood drawwith CBC. I will call them tomorrow. 30 mins face to face with over 50% counseling. (2) Cervicalgia: Code(s): M54.2 - Cervicalgia (3) Pre-syncope: Code(s): R55 - Syncope and collapse Electronically Signed By: <Electronically signed by Keri Church DO> Date/Time Signed: 12/16/19 175 Name Value Range Interpretation Code Description Data Julianna rce(s) Supporting Document(s) ID Date Data Source [id number] 12/02/2019 11:07:00 AM EDT [facility] [address] [place] [address] [address] [phone] NAME SEX PT STATUS ACCOUNT NUMBER [place] MCMANUS REG REF [id number] ORDERING PHYSICIAN LOCATION MEDICAL RECORD NO. Keri Church DO RAD [id number] ATTENDING PHYSICIAN DATE OF DATE OF EXAM/TIME Keri Church DO 1950 12/02/19 / 1105 TYPE / EXAM Xray Cervical spine complete REASON FOR EXAM pre-syncopal,headache,C-Spine tenderness COMPARISON: None FINDINGS: Routine views show no evidence of fracture or dislocation. ACDF from C4 to C6 is seen. There is no evidence of hardware complication or failure. Fusion of C4-C5 and C5-C6 is seen as well. There is noevidence of vertebral body compression deformity or subluxation. Straightening of normal cervical lordosis is seen. There is no prevertebral soft tissue swelling. Multilevel degenerative changes areseen at the neural foramina level. This is [...] subluxation. Reported By Pasha Uribe MD on 12/02/19 1107 Signed By Pasha Uribe MD on 12/02/19 1121 Date Time CC: Pasha Uribe MD; Keri Church DO Techn: BAKLE Trans Dt/Tm: Trans by: DT Prt Dt/Tm: 0428- 0009: Total DLP = 0.00 mGy-cm Fluoroscopy Time (in secs): Name Value Range Interpretation Code Description Data Julianna rce(s) Supporting Document(s) ID Date Data Source [id number] 11/25/2019 09:39:00 AM EDT [facility] Patient Name: [place] MCMANUS : 1950 Sex: F Pt Unit #: [id number] Location:[facility] Provider: Visit Date/Time: 11/25/19 Primary Insurance: MEDICARE [employer] Secondary Insurance: FOR LIFE Intake Vital Signs 11/25/19 09:40 Current Height 4 ft 10 in Current Weight 165 lb Weight Measurement Method Standing Scale BMI 34.4 BP 134/80 Blood Pressure Location Lt brachial Position Sitting Respiration 158 H Pulse 56 L Temp 98.1 F Temp Source Oral Pulse Oximetry (%) 98 Oxygen Delivery Method room air Intake Visit Reasons: Syncope Nurse Note: Frequent falls states that she fell this am.Con't with Headach .Is having a MRA today and a EEG tomorrow Is patient in pain?: Yes (Head) Pain scale (1-10): 9 Allergies codeine [CODEINE] Allergy (Unknown, Verified 04/14/19 10:01) diazepam [From VALIUM] Allergy (Unknown, Verified 04/14/19 10:01) flurazepam [From DALMANE] Allergy (Unknown, Verified 04/14/19 10:01) levofloxacin [From LEVAQUIN] Allergy (Unknown, Verified 04/14/19 10:01) meperidine [From DEMEROL] Allergy (Unknown, Verified 04/14/19 10:01) nitrofurantoin [From MACROBID] Allergy (Unknown, Verified 04/14/19 10:01) rabeprazole [From ACIPHEX] Allergy (Unknown, Verified 04/14/19 10:01) Sulfa (Sulfonamide Antibiotics) [SULFA (SULFONAMIDE ANTIBIOTICS)] Allergy (Unknown, Verified 04/14/19 10:01) Fall Risk History of falls: Yes (States that she fell this am off the toilet) Ambulatory Aid:: None Gait/Transferring:: Normal Medications:: Antihypertensives HIV Testing Offer - ages 13-64 Requirement for HIV testing offer been met?: Not in age range Coronavirus Screening Screening Have you traveled outside of [facility] or [facility] in the last 14 days.: No Has patient experienced coronavirus symptoms: No [facility] Medical History (Updated 10/28/19 @ 14:47 by Keri Church DO) Arthritis (Acute) Cavernoma (Acute) Environmental allergies (Acute) Essential (primary) hypertension (Chronic) GERD (gastroesophageal reflux disease) (Chronic) Hearing deficit (Acute) History of CVA (cerebrovascular accident) (Chronic) History of IBS (Chronic) Liver disease (Acute) Osteoporosis (Chronic) Prediabetes (Acute) Recurrent sinusitis (Chronic) Urinary incontinence (Acute) Surgical History H/O section (Acute) History of extraction of renal calculus (Acute) History of hysterectomy (Acute) History of nasal surgery (Acute) History of splenectomy (Acute) History of throat surgery (Acute) Social History (Updated 11/25/19 @ 09:46 by Theresa Middleton) Does the Patient have a Healthcare Proxy: Yes (TING JUAN) Does Patient have a DNR?: No Does Patient have a Living Will?: Yes highest education level co mpleted: Associate degree: occupational, technical, vocational program Hx Recent Travel (where): No well-balanced diet: daily high-fat food intake: 0-1 times daily daily servings fruits/ve-4 daily servings of milk/calcium: 5 or more eating out: 1-3 times/week reads food labels: usually or always alcohol intake: current alcohol intake frequency: 0-2 drinks per day substance use type: does not use seatbelt 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 Lastseen by me 10/28/19 and she collapsed with HTN. She had an appt with Cardiology in 6 days 11/03/19. I was concerned for possible chronological incompetence and if a pacemaker was needed. HTN was not well controlled. last labs 11/21/19. She had non-walking nuclear stress test 11/11/19 and results were pending. Holter Monitor NSR with 25% bradycardia on Nadolol. Symptoms did not correlate with her strip however. I am told she saw Neurology yesterday and they placed her on Fioricet and it is not helping. 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 MRA today and EEG this week. She states the Fiorcet is taking the edge off and that is it. She states she has a headache for over a month. She saw [facility] JEWEL LATHE OPERATOR Lindsay Marquez and she was concerned for chronotropic incompetence. She wanted to place a Loop Recorder if Neurology found nothing. Her next appt with Neurology she is not sure of the date. Getting up off the toilet today she lost strength and hurt her skin on R buttock. Review of Systems Const Denies weight gain and Denies weight loss Card Denies chest pain, Denies irregular heart rhythm and Denies dyspnea on exertion Resp Denies cough and Denies dyspnea on exertion Exam Const General: cooperative, healthy appearing and comfortable Neck Thyroid: abnormal thyroid Carotids: no bruits Lymphatic: lymphadenopathy noted Chest Chest: normal inspection of the chest Resp Auscultation: clear to auscultation bilaterally, no rales, no rhonchi and no wheezes Cardio Rhythm: regular rhythm Heart Sounds: S1 normal, S2 normal, no gallops, no murmurs and no rubs Musc Other: cervical spine tender to slight/moderate palpation, full range of motion Neuro General: patient alert, patient awake, patient oriented x3 and CN's II-XI intact bilaterally Cognition: normal cognition Speech: speech normal Extrem General: normal to inspection and no edema Assessment Plan Assessment Plan (1) Pre-syncope: Code(s): R55 - Syncope and collapse Plan - Keri Church, DO: Presyncope, possible chronotropic incompetence, headache and cervical spine tenderness with PMH cervical fusion. I called Dr. [...] on top of head. F/u one month. (2) Headache: Code(s): R51 - Headache Orders Other Medications: New: ijnkmvvubz-bnpqmocofcmri-xopn 50-325-40 mg 1 cap PO Q12H PRN 30 caps 0RF pain Discontinued: amoxicillin-pot clavulanate 875-125 mg (Augmentin) Discontinued Reason: MD Order 1 tab PO BID 20 tabs 0RF Electronically Signed By: <Electronically signed by Keri Church DO> Date/Time Signed: 11/25/19 1106 Name Value Range Interpretation Code Description Data Julianna rce(s) Supporting Document(s) ID Date Data Source [id number] 11/24/2019 10:45:00 AM EDT [facility] Name Value Range Interpretation Code Description Data Julianna rce(s) Supporting Document(s) Urine Random Creatinine 110.0 mg/dL [facility] THERE IS NO ESTABLISHED RANGE FOR RANDOM URINE CREATININE Urine Microalbumin 12.6 mg/L 0.0-29.9 [facility] Ur Malb/Cre Ratio (ACR) 11.4 ug/mg 0.0-30.0 [facility] ID Date Data Source [id number] 11/24/2019 09:48:00 AM EDT [facility] Name Value Range Interpretation Code Description Data Julianna rce(s) Supporting Document(s) Leukocytes [#/volume] in Blood by Automated count 8.8 10*3/uL 4.45-10 .71 N [facility] Erythrocytes [#/volume] in Blood by Automated count 4.39 10*6/uL 4.20 -5.40 N [facility] Hemoglobin [Moles/volume] in Blood 14.0 g/dL 10.7-15.4 N [facility] Hematocrit [Volume Fraction] of Blood by Automated count 41.1 % 3 7-47 N [facility] Erythrocyte mean corpuscular volume [Ent itic volume] in Cord blood by Automated count 93.6 fL 80-96 N [facility] ital Erythrocyte mean corpuscular hemoglobin [Entitic mass] by Automated count 31.9 pg 27-31 Above high normal [facility] spital Erythrocyte mean corpuscular hemoglobin concentration [Mass/volume] in Cord blood 34.1 g/dL 33-37 N [facility] ital Erythrocyte distribution width [Entitic volume] by Automated cou nt 16 % 11-15 Above high normal [facility] Platelets [#/volume] in Blood by Automated count 304 10*3/uL 130-472 N [facility] Platelet mean volume [Entitic volume] in Blood 11.1 fL 9.1-13.1 N [facility] Neutrophils/100 leukocytes in Blood by Automated count 36.7 % 41-77 Below low normal [facility] Neutrophils [#/volume] in Blood by Automated count 3.2 U 1.7-7.6 N [facility] Lymphocytes/100 leukocytes in Blood by Automated count 41.0 % 14- 46 N [facility] Lymphocytes [#/volume] in Blood by Automated count 3.6 U 0.6-4.6 N [facility] Monocytes/100 leukocytes in Blood by Automated count 11.4 % 4-12 N [facility] Monocytes [#/volume] in Blood by Automated count 1.0 U 0.2-1.2 N [facility] Eosinophils/100 leukocytes in Blood by Automated count 9.8 % 0-7 Above high normal [facility] Eosinophils [#/volume] in Blood by Automated count 0.9 U 0.0-0.5 Above high normal [facility] Basophils/100 leukocytes in Blood by Automated count 0.9 % 0.4-1 .3 N [facility] Basophils [#/volume] in Blood by Automated count 0.1 U 0.0-0.2 N [facility] NUCLEATED RED BLOOD CELL 0 % [facility] NUCLEATED RED BLOOD CELL# 0 U [facility] Immature granulocytes [Presence] in Blood by Automated count 0-2 N [facility] Immature granulocytes [#/volume] in Blood by Automated count 0.0 U 0-0.1 N [facility] Manual Differential panel - Blood NO [facility] ID Date Data Source [id number] 11/24/2019 10:09:00 AM EDT [facility] Name Value Range Interpretation Code Description Data Julianna rce(s) Supporting Document(s) Hemoglobin A1c % 6.4 % 4.0-6.0 Above high normal L [facility] The following ranges may be u sed for interpretation of results: HGBA1C degree of glucose control: Greater than 8%: Action Suggested * Less than 7%: Goal of Diabetic Therapy Less than 6%: NormalFactors such as duration of diabetes, adherence to therapyand the age of the patient should also be considered inassessing the degree of blood glucose control.* High risk of developing entertainment manager complications such asretinopathy, nephropathy, neuropathy, cardiopathy, etc. Some danger of hypoglycemic reaction in Type I diabetics.Some glucose intolerant individuals and "Sub Clinical"diabetics may demonstrate HGBA1C levels in this area. Glucose mean value [Moles/volume] in Blood Estimated f rom glycated hemoglobin 137 mg/dL [facility] l An A1C of 7% - the goal of diabetic ther apy - is equivalentto an EAG of 154 mg/dl. ID Date Data Source [id number] 11/24/2019 10:24:00 AM EDT [facility] Name Value Range Interpretation Code Description Data Julianna rce(s) Supporting Document(s) Urea nitrogen [Mass/volume] in Serum or Plasma 8 mg/dL 9-23 Below low normal [facility] Sodium [Moles/volume] in Serum or Plasma 144 mmol/L 132-146 N [facility] Potassium [Moles/volume] in Serum or Plasma 3.9 mmol/L 3.5-5.5 [facility] Chloride [Moles/volume] in Serum or Plasma 112 mmol/L 99-109 Above high normal [facility] Carbon dioxide, total [Moles/volume] in Serum or Plasma 27 mmol/L 20 -31 N [facility] Anion gap in Serum or Plasma 9 mmol/L 8-16 N [facility] Glucose [Mass/volume] in Serum or Plasma 111 mg/dL 74-106 Above high normal [facility] Creatinine 0.7 mg/dL 0.5-1.1 [facility] Glomerular filtration rate/1.73 sq M.pre dicted [Volume Rate/Area] in Serum or Plasma Greater Than 60 ABOVE 60 [facility] Alanine aminotransferase [Enzymatic acti vity/volume] in Serum or Plasma by With P-5'-P 48 U/L 10-49 N [facility] ital Aspartate aminotransferase [Enzymatic ac tivity/volume] in Serum or Plasma by With P-5'-P 61 U/L 0-33 Above high normal [facility] Alkaline phosphatase [Enzymatic activity/volume] in Serum or Plasma 113 U/L 45-129 N [facility] Calcium [Mass/volume] in Serum or Plasma 8.7 mg/dL 8.5-10.1 [facility] Bilirubin.total [Mass/volume] in Serum or Plasma 0.5 mg/dL 0.3-1.2 [facility] Albumin [Mass/volume] in Serum or Plasma by Bromocresol purple (BCP) dye binding method 3.4 g/dL 3.2-4.8 [facility] ital Protein [Mass/volume] in Serum or Plasma 7.3 g/dL 5.7-8.2 [facility] ID Date Data Source [id number] 11/24/2019 10:24:00 AM EDT [facility] Name Value Range Interpretation Code Description Data Julianna rce(s) Supporting Document(s) Triglycerides 187 mg/dL 0-150 Above high normal [facility] Cholesterol 203 mg/dL 120-200 Above high normal [facility] HDL Cholesterol 52 mg/dL [facility] HDL Less than 40 mg/dL: Major risk for CHDHDL Greater than 59 mg/dL: Low risk for CHD LDL Cholesterol, Calc 114 mg/dL 0-100 Above high normal [facility] ID Date Data Source [id number] 11/24/2019 10:24:00 AM EDT [facility] Name Value Range Interpretation Code Description Data Julianna rce(s) Supporting Document(s) C reactive protein [Mass/volume] in Serum or Plasma 9.1 mg/L 0.0-5.0 Above high normal [facility] ID Date Data Source [id number] 11/24/2019 10:24:00 AM EDT [facility] Name Value Range Interpretation Code Description Data Julianna rce(s) Supporting Document(s) Thyrotropin [Units/volume] in Serum or Plasma by Detec tion limit <= 0.005 mIU/L 3.50 u[iU]/mL 0.35-5.50 [facility] Date Data Source [id number] 11/21/2019 03:41:00 PM EDT [facility] Not Collected Reason:: DID NOT PASS WITH MCR CHECK,ABN SIGNEDTEST(S) ORDERED:: A1C Name Value Range Interpretation Code Description Data Julianna rce(s) Supporting Document(s) Laboratory A1C [facility] Laboratory studies (set) DID NOT PASS WITH MCR CHECK,ABN SIGNED [facility] Test(s) that were [facility] were not collected. ID Date Data Source [id number] 11/21/2019 03:40:00 PM EDT [facility] ([facility]) Name Value Range Interpretation Code Description Data Julianna rce(s) Supporting Document(s) Laboratory Laboratory test result [facility] ([facility]) I10,K21.9,R73.03,M06.9,Z86.73 Laboratory studies (set) Laboratory test result [facility] ([facility]) I10,K21.9,R73.03,M06.9,Z86.73 ID Date Data Source [id number] 11/21/2019 04:48:00 PM EDT [facility] Test(s) [id number] B6was developed a nd its performance characteristicsdetermined by [employer]. It has not been cleared or approvedby the Food and Drug Administration.Test(s) [id number]-Tzn. B1, Whole Bloodwas developed and its performance characteristicsdetermined by [facility]. It has not been cleared or approvedby the Food and Drug Administration.Test(s) 235251-Nbqcher E(Alpha Tocopherol); 744711-Pqdlbhv E(Gamma Tocopherol)was developed and its performance characteristicsdetermined by [facility]. It has not been cleared or approvedby the Food and Drug Administration. Test(s) 747826-Afhkrii B6was developed a nd its performance characteristicsdetermined by [facility]. It has not been cleared or approvedby the Food and Drug Administration.Test(s) 531174-Kqc. B1, Whole Bloodwas developed and its performance characteristicsdetermined by [facility]. It has not been cleared or approvedby the Food and Drug Administration.Test(s) 741048-Gpxdnnr E(Alpha Tocopherol); 704644-Rhqnzey E(Gamma Tocopherol)was developed and its performance characteristicsdetermined by [facility]. It has not been cleared or approvedby the Food and Drug Administration. Test(s) 898547-Myxtvqt B6was developed a nd its performance characteristicsdetermined by [facility]. It has not been cleared or approvedby the Food and Drug Administration.Test(s) 014590-Hdx. B1, Whole Bloodwas developed and its performance characteristicsdetermined by [facility]. It has not been cleared or approvedby the Food and Drug Administration.Test(s) 181884-Rhpmmjz E(Alpha Tocopherol); 977622-Xwlcqmf E(Gamma Tocopherol)was developed and its performance characteristicsdetermined by [facility]. It has not been cleared or approvedby the Food and Drug Administration. Test(s) 921333-Ruotfbt B6was developed a nd its performance characteristicsdetermined by [facility]. It has not been cleared or approvedby the Food and Drug Administration.Test(s) 184345-Ofr. B1, Whole Bloodwas developed and its performance characteristicsdetermined by [facility]. It has not been cleared or approvedby the Food and Drug Administration.Test(s) 190364-Huhnpjr E(Alpha Tocopherol); 345089-Mxadlif E(Gamma Tocopherol)was developed and its performance characteristicsdetermined by [facility]. It has not been cleared or approvedby the Food and Drug Administration. Test(s) 300270-Imimoyg B6was developed a nd its performance characteristicsdetermined by [facility]. It has not been cleared or approvedby the Food and Drug Administration.Test(s) 411587-Cup. B1, Whole Bloodwas developed and its performance characteristicsdetermined by [facility]. It has not been cleared or approvedby the Food and Drug Administration.Test(s) 980329-Ekhyzxo E(Alpha Tocopherol); 149796-Nxezndm E(Gamma Tocopherol)was developed and its performance characteristicsdetermined by [facility]. It has not been cleared or approvedby the Food and Drug Administration. Test(s) 745088-Eiyjhyh B6was developed a nd its performance characteristicsdetermined by [facility]. It has not been cleared or approvedby the Food and Drug Administration.Test(s) 113157-Fxr. B1, Whole Bloodwas developed and its performance characteristicsdetermined by [facility]. It has not been cleared or approvedby the Food and Drug Administration.Test(s) 965540-Zjobjbf E(Alpha Tocopherol); 094340-Kdmnvmm E(Gamma Tocopherol)was developed and its performance characteristicsdetermined by [facility]. It has not been cleared or approvedby the Food and Drug Administration. Test(s) 505516-Qecxlpa B6was developed a nd its performance characteristicsdetermined by [facility]. It has not been cleared or approvedby the Food and Drug Administration.Test(s) 074061-Uqb. B1, Whole Bloodwas developed and its performance characteristicsdetermined by [facility]. It has not been cleared or approvedby the Food and Drug Administration.Test(s) 548456-Vzretxd E(Alpha Tocopherol); 007176-Hfxeafm E(Gamma Tocopherol)was developed and its performance characteristicsdetermined by [facility]. It has not been cleared or approvedby the Food and Drug Administration. Test(s) 012528-Cirpkjc B6was developed a nd its performance characteristicsdetermined by [facility]. It has not been cleared or approvedby the Food and Drug Administration.Test(s) 554689-Yet. B1, Whole Bloodwas developed and its performance characteristicsdetermined by [facility]. It has not been cleared or approvedby the Food and Drug Administration.Test(s) 146169-Ilbhjms E(Alpha Tocopherol); 397032-Ntlsthh E(Gamma Tocopherol)was developed and its performance characteristicsdetermined by [employer]. It has not been cleared or approvedby the Food and Drug Administration. Test(s) 288166-Medlegr B6was developed a nd its performance characteristicsdetermined by [employer]. It has not been cleared or approvedby the Food and Drug Administration.Test(s) 234801-Bhj. B1, Whole Bloodwas developed and its performance characteristicsdetermined by [employer]. It has not been cleared or approvedby the Food and Drug Administration.Test(s) 248801-Aqjyvnv E(Alpha Tocopherol); 231801-Hdukrra E(Gamma Tocopherol)was developed and its performance characteristicsdetermined by [employer]. It has not been cleared or approvedby the Food and Drug Administration. Name Value Range Interpretation Code Description Data Julianna rce(s) Supporting Document(s) Urea nitrogen [Mass/volume] in Serum or Plasma 10 mg/dL 9-23 [facility] Sodium [Moles/volume] in Serum or Plasma 144 mmol/L 132-146 [facility] Potassium [Moles/volume] in Serum or Plasma 4.6 mmol/L 3.5-5.5 [facility] Chloride [Moles/volume] in Serum or Plasma 109 mmol/L 99-109 [facility] Carbon dioxide, total [Moles/volume] in Serum or Plasma 31 mmol/L 20 -31 [facility] Anion gap in Serum or Plasma 9 mmol/L 8-16 [facility] Glucose [Mass/volume] in Serum or Plasma 113 mg/dL 74-106 Above high normal [facility] Creatinine 0.7 mg/dL 0.5-1.1 [facility] Glomerular filtration rate/1.73 sq M.pre dicted [Volume Rate/Area] in Serum or Plasma Greater Than 60 ABOVE 60 [facility] Alanine aminotransferase [Enzymatic acti vity/volume] in Serum or Plasma by With P-5'-P 48 U/L 10-49 [facility] ital Aspartate aminotransferase [Enzymatic ac tivity/volume] in Serum or Plasma by With P-5'-P 58 U/L 0-33 Above high normal [facility] Alkaline phosphatase [Enzymatic activity/volume] in Serum or Plasma 123 U/L 45-129 [facility] Calcium [Mass/volume] in Serum or Plasma 8.9 mg/dL 8.5-10.1 [facility] Bilirubin.total [Mass/volume] in Serum or Plasma 0.4 mg/dL 0.3-1.2 [facility] Albumin [Mass/volume] in Serum or Plasma by Bromocresol purple (BCP) dye binding method 3.4 g/dL 3.2-4.8 [facility] ital Protein [Mass/volume] in Serum or Plasma 7.5 g/dL 5.7-8.2 [facility] ID Date Data Source [id number] 11/21/2019 04:48:00 PM EDT [facility] Test(s) 026065-Kliegtj B6was developed a nd its performance characteristicsdetermined by [facility]. It has not been cleared or approvedby the Food and Drug Administration.Test(s) 386455-Dpz. B1, Whole Bloodwas developed and its performance characteristicsdetermined by [facility]. It has not been cleared or approvedby the Food and Drug Administration.Test(s) 298873-Lyjlqpx E(Alpha Tocopherol); 042001-Ebdadmq E(Gamma Tocopherol)was developed and its performance characteristicsdetermined by [facility]. It has not been cleared or approvedby the Food and Drug Administration. Test(s) 653124-Tmsiggm B6was developed a nd its performance characteristicsdetermined by [facility]. It has not been cleared or approvedby the Food and Drug Administration.Test(s) 383620-Ude. B1, Whole Bloodwas developed and its performance characteristicsdetermined by [facility]. It has not been cleared or approvedby the Food and Drug Administration.Test(s) 412667-Xoaygyr E(Alpha Tocopherol); 158605-Unfuzsp E(Gamma Tocopherol)was developed and its performance characteristicsdetermined by [facility]. It has not been cleared or approvedby the Food and Drug Administration. Test(s) 750787-Qmoombp B6was developed a nd its performance characteristicsdetermined by [facility]. It has not been cleared or approvedby the Food and Drug Administration.Test(s) 440639-Svj. B1, Whole Bloodwas developed and its performance characteristicsdetermined by [facility]. It has not been cleared or approvedby the Food and Drug Administration.Test(s) 711062-Exnuvmv E(Alpha Tocopherol); 868070-Vxqaqew E(Gamma Tocopherol)was developed and its performance characteristicsdetermined by [facility]. It has not been cleared or approvedby the Food and Drug Administration. Test(s) 169070-Sxeijxe B6was developed a nd its performance characteristicsdetermined by [facility]. It has not been cleared or approvedby the Food and Drug Administration.Test(s) 502994-Wuy. B1, Whole Bloodwas developed and its performance characteristicsdetermined by [facility]. It has not been cleared or approvedby the Food and Drug Administration.Test(s) 127114-Omsoyrq E(Alpha Tocopherol); 925547-Hijejms E(Gamma Tocopherol)was developed and its performance characteristicsdetermined by [facility]. It has not been cleared or approvedby the Food and Drug Administration. Test(s) 176723-Knkqkto B6was developed a nd its performance characteristicsdetermined by [facility]. It has not been cleared or approvedby the Food and Drug Administration.Test(s) 597509-Uss. B1, Whole Bloodwas developed and its performance characteristicsdetermined by [facility]. It has not been cleared or approvedby the Food and Drug Administration.Test(s) 838358-Xairfqm E(Alpha Tocopherol); 802691-Bitmqxh E(Gamma Tocopherol)was developed and its performance characteristicsdetermined by [facility]. It has not been cleared or approvedby the Food and Drug Administration. Test(s) 316926-Qkygylg B6was developed a nd its performance characteristicsdetermined by [facility]. It has not been cleared or approvedby the Food and Drug Administration.Test(s) 150779-Qqd. B1, Whole Bloodwas developed and its performance characteristicsdetermined by [facility]. It has not been cleared or approvedby the Food and Drug Administration.Test(s) 584677-Tayiazx E(Alpha Tocopherol); 850347-Uifuavc E(Gamma Tocopherol)was developed and its performance characteristicsdetermined by [facility]. It has not been cleared or approvedby the Food and Drug Administration. Test(s) 975463-Iqeycat B6was developed a nd its performance characteristicsdetermined by [facility]. It has not been cleared or approvedby the Food and Drug Administration.Test(s) 762065-Dto. B1, Whole Bloodwas developed and its performance characteristicsdetermined by [facility]. It has not been cleared or approvedby the Food and Drug Administration.Test(s) 531725-Kmaiurf E(Alpha Tocopherol); 757780-Xhspgsj E(Gamma Tocopherol)was developed and its performance characteristicsdetermined by [facility]. It has not been cleared or approvedby the Food and Drug Administration. Test(s) 298361-Tztownr B6was developed a nd its performance characteristicsdetermined by [facility]. It has not been cleared or approvedby the Food and Drug Administration.Test(s) 538108-Ndb. B1, Whole Bloodwas developed and its performance characteristicsdetermined by [facility]. It has not been cleared or approvedby the Food and Drug Administration.Test(s) 631704-Winzzxf E(Alpha Tocopherol); 033094-Eqommke E(Gamma Tocopherol)was developed and its performance characteristicsdetermined by [facility]. It has not been cleared or approvedby the Food and Drug Administration. Test(s) 831017-Spbcllt B6was developed a nd its performance characteristicsdetermined by [facility]. It has not been cleared or approvedby the Food and Drug Administration.Test(s) 168153-Bbm. B1, Whole Bloodwas developed and its performance characteristicsdetermined by [facility]. It has not been cleared or approvedby the Food and Drug Administration.Test(s) 107022-Tkgaijl E(Alpha Tocopherol); 696522-Skzrzdq E(Gamma Tocopherol)was developed and its performance characteristicsdetermined by [facility]. It has not been cleared or approvedby the Food and Drug Administration. Name Value Range Interpretation Code Description Data Julianna rce(s) Supporting Document(s) Leukocytes [#/volume] in Blood by Automated count 10.1 10*3/uL 4.45-1 0.71 N [facility] Erythrocytes [#/volume] in Blood by Automated count 4.50 10*6/uL 4.20 -5.40 N [facility] Hemoglobin [Moles/volume] in Blood 14.2 g/dL 10.7-15.4 [facility] Hematocrit [Volume Fraction] of Blood by Automated count 42.1 % 3 7-47 N [facility] Erythrocyte mean corpuscular volume [Ent itic volume] in Cord blood by Automated count 93.6 fL 80-96 N [facility] ital Erythrocyte mean corpuscular hemoglobin [Entitic mass] by Automated count 31.6 pg 27-31 Above high normal [facility] spital Erythrocyte mean corpuscular hemoglobin concentration [Mass/volume] in Cord blood 33.7 g/dL 33-37 N [facility] ital Erythrocyte distribution width [Entitic volume] by Automated cou nt 16 % 11-15 Above high normal [facility] Platelets [#/volume] in Blood by Automated count 303 10*3/uL 130-472 N [facility] Platelet mean volume [Entitic volume] in Blood 10.5 fL 9.1-13.1 N [facility] Neutrophils/100 leukocytes in Blood by Automated count 31.8 % 41-77 Below low normal [facility] Neutrophils [#/volume] in Blood by Automated count 3.2 U 1.7-7.6 N [facility] Lymphocytes/100 leukocytes in Blood by Automated count 47.7 % 14-46 Above high normal [facility] Lymphocytes [#/volume] in Blood by Automated count 4.8 U 0.6-4.6 Above high normal [facility] Monocytes/100 leukocytes in Blood by Automated count 10.8 % 4-12 N [facility] Monocytes [#/volume] in Blood by Automated count 1.1 U 0.2-1.2 N [facility] Eosinophils/100 leukocytes in Blood by Automated count 8.6 % 0-7 Above high normal [facility] Eosinophils [#/volume] in Blood by Automated count 0.9 U 0.0-0.5 Above high normal [facility] Basophils/100 leukocytes in Blood by Automated count 1.0 % 0.4-1 .3 N [facility] Basophils [#/volume] in Blood by Automated count 0.1 U 0.0-0.2 N [facility] NUCLEATED RED BLOOD CELL 0 % [facility] NUCLEATED RED BLOOD CELL# 0 U [facility] Immature granulocytes [Presence] in Blood by Automated count 0-2 N [facility] Immature granulocytes [#/volume] in Blood by Automated count 0.0 U 0-0.1 N [facility] Manual Differential panel - Blood NO [facility] ID Date Data Source [id number] 11/21/2019 04:54:00 PM EDT [facility] Test(s) 895614-Ojzwtjs B6was developed a nd its performance characteristicsdetermined by [facility]. It has not been cleared or approvedby the Food and Drug Administration.Test(s) 977355-Kou. B1, Whole Bloodwas developed and its performance characteristicsdetermined by [facility]. It has not been cleared or approvedby the Food and Drug Administration.Test(s) 902497-Bypogtq E(Alpha Tocopherol); 790507-Vskaxpj E(Gamma Tocopherol)was developed and its performance characteristicsdetermined by [facility]. It has not been cleared or approvedby the Food and Drug Administration. Test(s) 637424-Sfroddo B6was developed a nd its performance characteristicsdetermined by [facility]. It has not been cleared or approvedby the Food and Drug Administration.Test(s) 060423-Pet. B1, Whole Bloodwas developed and its performance characteristicsdetermined by [facility]. It has not been cleared or approvedby the Food and Drug Administration.Test(s) 248616-Vcdegjz E(Alpha Tocopherol); 277734-Ofzkgxs E(Gamma Tocopherol)was developed and its performance characteristicsdetermined by [facility]. It has not been cleared or approvedby the Food and Drug Administration. Test(s) 927141-Ypgzlvm B6was developed a nd its performance characteristicsdetermined by [facility]. It has not been cleared or approvedby the Food and Drug Administration.Test(s) 104774-Bpx. B1, Whole Bloodwas developed and its performance characteristicsdetermined by [facility]. It has not been cleared or approvedby the Food and Drug Administration.Test(s) 451940-Cxlwina E(Alpha Tocopherol); 233347-Avmmvao E(Gamma Tocopherol)was developed and its performance characteristicsdetermined by [facility]. It has not been cleared or approvedby the Food and Drug Administration. Test(s) 510343-Zupxcli B6was developed a nd its performance characteristicsdetermined by [facility]. It has not been cleared or approvedby the Food and Drug Administration.Test(s) 247919-Agp. B1, Whole Bloodwas developed and its performance characteristicsdetermined by [facility]. It has not been cleared or approvedby the Food and Drug Administration.Test(s) 285591-Afjcoaq E(Alpha Tocopherol); 511275-Acueyjq E(Gamma Tocopherol)was developed and its performance characteristicsdetermined by [facility]. It has not been cleared or approvedby the Food and Drug Administration. Test(s) 764662-Cpjpvmh B6was developed a nd its performance characteristicsdetermined by [facility]. It has not been cleared or approvedby the Food and Drug Administration.Test(s) 651562-Whv. B1, Whole Bloodwas developed and its performance characteristicsdetermined by [facility]. It has not been cleared or approvedby the Food and Drug Administration.Test(s) 045631-Scfrpdy E(Alpha Tocopherol); 891004-Givonog E(Gamma Tocopherol)was developed and its performance characteristicsdetermined by [facility]. It has not been cleared or approvedby the Food and Drug Administration. Test(s) 302967-Alkfwmx B6was developed a nd its performance characteristicsdetermined by [facility]. It has not been cleared or approvedby the Food and Drug Administration.Test(s) 206572-Vnr. B1, Whole Bloodwas developed and its performance characteristicsdetermined by [facility]. It has not been cleared or approvedby the Food and Drug Administration.Test(s) 655143-Uulrhpo E(Alpha Tocopherol); 844156-Sdlznzh E(Gamma Tocopherol)was developed and its performance characteristicsdetermined by [facility]. It has not been cleared or approvedby the Food and Drug Administration. Test(s) 339925-Mvxonag B6was developed a nd its performance characteristicsdetermined by [facility]. It has not been cleared or approvedby the Food and Drug Administration.Test(s) 439388-Joj. B1, Whole Bloodwas developed and its performance characteristicsdetermined by [facility]. It has not been cleared or approvedby the Food and Drug Administration.Test(s) 634687-Wzdxdrt E(Alpha Tocopherol); 082160-Tydybif E(Gamma Tocopherol)was developed and its performance characteristicsdetermined by [facility]. It has not been cleared or approvedby the Food and Drug Administration. Test(s) 810190-Istkioc B6was developed a nd its performance characteristicsdetermined by [facility]. It has not been cleared or approvedby the Food and Drug Administration.Test(s) 213702-Juc. B1, Whole Bloodwas developed and its performance characteristicsdetermined by [facility]. It has not been cleared or approvedby the Food and Drug Administration.Test(s) 730156-Iyokxym E(Alpha Tocopherol); 649153-Qrbxmlq E(Gamma Tocopherol)was developed and its performance characteristicsdetermined by [facility]. It has not been cleared or approvedby the Food and Drug Administration. Test(s) 557129-Kmiehiz B6was developed a nd its performance characteristicsdetermined by [facility]. It has not been cleared or approvedby the Food and Drug Administration.Test(s) 863546-Zje. B1, Whole Bloodwas developed and its performance characteristicsdetermined by [facility]. It has not been cleared or approvedby the Food and Drug Administration.Test(s) 225401-Gcsodhz E(Alpha Tocopherol); 595052-Pdhyasl E(Gamma Tocopherol)was developed and its performance characteristicsdetermined by [facility]. It has not been cleared or approvedby the Food and Drug Administration. Name Value Range Interpretation Code Description Data Julianna rce(s) Supporting Document(s) Vitamin B12 467 pg/mL 211-[address] [facility] ID Date Data Source [id number] 11/25/2019 08:06:00 PM EDT [facility] Test(s) 491214-Flepgcn B6was developed a nd its performance characteristicsdetermined by [facility]. It has not been cleared or approvedby the Food and Drug Administration.Test(s) 111704-Bzj. B1, Whole Bloodwas developed and its performance characteristicsdetermined by [facility]. It has not been cleared or approvedby the Food and Drug Administration.Test(s) 967294-Upijwxm E(Alpha Tocopherol); 826723-Egbmcjh E(Gamma Tocopherol)was developed and its performance characteristicsdetermined by [facility]. It has not been cleared or approvedby the Food and Drug Administration. Test(s) 321776-Zpittjy B6was developed a nd its performance characteristicsdetermined by [facility]. It has not been cleared or approvedby the Food and Drug Administration.Test(s) 849816-Fbv. B1, Whole Bloodwas developed and its performance characteristicsdetermined by [facility]. It has not been cleared or approvedby the Food and Drug Administration.Test(s) 966838-Hsxqace E(Alpha Tocopherol); 824649-Xxawewa E(Gamma Tocopherol)was developed and its performance characteristicsdetermined by [facility]. It has not been cleared or approvedby the Food and Drug Administration. Test(s) 284067-Zxkphwe B6was developed a nd its performance characteristicsdetermined by [facility]. It has not been cleared or approvedby the Food and Drug Administration.Test(s) 066875-Hdw. B1, Whole Bloodwas developed and its performance characteristicsdetermined by [facility]. It has not been cleared or approvedby the Food and Drug Administration.Test(s) 356006-Rjngmaa E(Alpha Tocopherol); 846314-Zuhrjcs E(Gamma Tocopherol)was developed and its performance characteristicsdetermined by [facility]. It has not been cleared or approvedby the Food and Drug Administration. Test(s) 856818-Bctujlu B6was developed a nd its performance characteristicsdetermined by [facility]. It has not been cleared or approvedby the Food and Drug Administration.Test(s) 572895-Rwj. B1, Whole Bloodwas developed and its performance characteristicsdetermined by [facility]. It has not been cleared or approvedby the Food and Drug Administration.Test(s) 747475-Zucmxyq E(Alpha Tocopherol); 046882-Fgczspb E(Gamma Tocopherol)was developed and its performance characteristicsdetermined by [facility]. It has not been cleared or approvedby the Food and Drug Administration. Test(s) 262952-Tttjzaq B6was developed a nd its performance characteristicsdetermined by [facility]. It has not been cleared or approvedby the Food and Drug Administration.Test(s) 511874-Wvg. B1, Whole Bloodwas developed and its performance characteristicsdetermined by [facility]. It has not been cleared or approvedby the Food and Drug Administration.Test(s) 523030-Xsgkiit E(Alpha Tocopherol); 525822-Ogmexzu E(Gamma Tocopherol)was developed and its performance characteristicsdetermined by [facility]. It has not been cleared or approvedby the Food and Drug Administration. Test(s) 194335-Ycavgcf B6was developed a nd its performance characteristicsdetermined by [facility]. It has not been cleared or approvedby the Food and Drug Administration.Test(s) 070016-Mdh. B1, Whole Bloodwas developed and its performance characteristicsdetermined by [facility]. It has not been cleared or approvedby the Food and Drug Administration.Test(s) 767687-Jfxcaxl E(Alpha Tocopherol); 135706-Mxxdzll E(Gamma Tocopherol)was developed and its performance characteristicsdetermined by [facility]. It has not been cleared or approvedby the Food and Drug Administration. Test(s) 741471-Depripp B6was developed a nd its performance characteristicsdetermined by [facility]. It has not been cleared or approvedby the Food and Drug Administration.Test(s) 776105-Vft. B1, Whole Bloodwas developed and its performance characteristicsdetermined by [facility]. It has not been cleared or approvedby the Food and Drug Administration.Test(s) 522323-Greqsof E(Alpha Tocopherol); 451097-Fznrvnn E(Gamma Tocopherol)was developed and its performance characteristicsdetermined by [facility]. It has not been cleared or approvedby the Food and Drug Administration. Test(s) 214285-Tgwchnl B6was developed a nd its performance characteristicsdetermined by [facility]. It has not been cleared or approvedby the Food and Drug Administration.Test(s) 473328-Dqs. B1, Whole Bloodwas developed and its performance characteristicsdetermined by [facility]. It has not been cleared or approvedby the Food and Drug Administration.Test(s) 204722-Rqprlad E(Alpha Tocopherol); 285995-Adjdhvn E(Gamma Tocopherol)was developed and its performance characteristicsdetermined by [facility]. It has not been cleared or approvedby the Food and Drug Administration. Test(s) 554720-Ghywrzd B6was developed a nd its performance characteristicsdetermined by [facility]. It has not been cleared or approvedby the Food and Drug Administration.Test(s) 155568-Wtv. B1, Whole Bloodwas developed and its performance characteristicsdetermined by [facility]. It has not been cleared or approvedby the Food and Drug Administration.Test(s) 276387-Txuhryp E(Alpha Tocopherol); 639210-Qxuxmto E(Gamma Tocopherol)was developed and its performance characteristicsdetermined by [facility]. It has not been cleared or approvedby the Food and Drug Administration. Name Value Range Interpretation Code Description Data Julianna rce(s) Supporting Document(s) Treponema pallidum Ab [Presence] in Serum by Immunoassay N on Reactive [facility] Performed at: - [facility] [id number] Director: Audrey Neumann MD, Phone: [phone] at: - [facility] [id number] Director: Renetta Aguilera MD, Phone: [phone] ID Date Data Source [id number] 11/21/2019 04:48:00 PM EDT [facility] Test(s) 187411-Yznjzko B6was developed a nd its performance characteristicsdetermined by [facility]. It has not been cleared or approvedby the Food and Drug Administration.Test(s) 601032-Ogz. B1, Whole Bloodwas developed and its performance characteristicsdetermined by [facility]. It has not been cleared or approvedby the Food and Drug Administration.Test(s) 308162-Hbgdocp E(Alpha Tocopherol); 581612-Plvsmfk E(Gamma Tocopherol)was developed and its performance characteristicsdetermined by [facility]. It has not been cleared or approvedby the Food and Drug Administration. Test(s) 721244-Zuqpzao B6was developed a nd its performance characteristicsdetermined by [facility]. It has not been cleared or approvedby the Food and Drug Administration.Test(s) 534327-Kiz. B1, Whole Bloodwas developed and its performance characteristicsdetermined by [facility]. It has not been cleared or approvedby the Food and Drug Administration.Test(s) 130475-Bvobjoo E(Alpha Tocopherol); 106396-Hdcyepk E(Gamma Tocopherol)was developed and its performance characteristicsdetermined by [facility]. It has not been cleared or approvedby the Food and Drug Administration. Test(s) 903706-Xnvqtzh B6was developed a nd its performance characteristicsdetermined by [facility]. It has not been cleared or approvedby the Food and Drug Administration.Test(s) 433267-Hfq. B1, Whole Bloodwas developed and its performance characteristicsdetermined by [facility]. It has not been cleared or approvedby the Food and Drug Administration.Test(s) 742009-Covtpuc E(Alpha Tocopherol); 805208-Qlunqxm E(Gamma Tocopherol)was developed and its performance characteristicsdetermined by [facility]. It has not been cleared or approvedby the Food and Drug Administration. Test(s) 167386-Vjnwvlb B6was developed a nd its performance characteristicsdetermined by [facility]. It has not been cleared or approvedby the Food and Drug Administration.Test(s) 595523-Ush. B1, Whole Bloodwas developed and its performance characteristicsdetermined by [facility]. It has not been cleared or approvedby the Food and Drug Administration.Test(s) 574980-Wsnkszk E(Alpha Tocopherol); 772351-Jilhwmy E(Gamma Tocopherol)was developed and its performance characteristicsdetermined by [facility]. It has not been cleared or approvedby the Food and Drug Administration. Test(s) 488765-Itylqyc B6was developed a nd its performance characteristicsdetermined by [facility]. It has not been cleared or approvedby the Food and Drug Administration.Test(s) 712411-Kxk. B1, Whole Bloodwas developed and its performance characteristicsdetermined by [facility]. It has not been cleared or approvedby the Food and Drug Administration.Test(s) 672008-Benvfnd E(Alpha Tocopherol); 073570-Rjapwqi E(Gamma Tocopherol)was developed and its performance characteristicsdetermined by [facility]. It has not been cleared or approvedby the Food and Drug Administration. Test(s) 844340-Jogzjug B6was developed a nd its performance characteristicsdetermined by [facility]. It has not been cleared or approvedby the Food and Drug Administration.Test(s) 853404-Oir. B1, Whole Bloodwas developed and its performance characteristicsdetermined by [facility]. It has not been cleared or approvedby the Food and Drug Administration.Test(s) 745308-Zjsknyb E(Alpha Tocopherol); 661774-Qcouaiu E(Gamma Tocopherol)was developed and its performance characteristicsdetermined by [facility]. It has not been cleared or approvedby the Food and Drug Administration. Test(s) 264029-Ihkirbl B6was developed a nd its performance characteristicsdetermined by [facility]. It has not been cleared or approvedby the Food and Drug Administration.Test(s) 692548-Gtr. B1, Whole Bloodwas developed and its performance characteristicsdetermined by [facility]. It has not been cleared or approvedby the Food and Drug Administration.Test(s) 514128-Apdcfht E(Alpha Tocopherol); 450392-Yhivxgj E(Gamma Tocopherol)was developed and its performance characteristicsdetermined by [facility]. It has not been cleared or approvedby the Food and Drug Administration. Test(s) 728525-Vkvrlvz B6was developed a nd its performance characteristicsdetermined by [facility]. It has not been cleared or approvedby the Food and Drug Administration.Test(s) 882901-Nnd. B1, Whole Bloodwas developed and its performance characteristicsdetermined by [facility]. It has not been cleared or approvedby the Food and Drug Administration.Test(s) 385522-Geyljeu E(Alpha Tocopherol); 930159-Ulhphdj E(Gamma Tocopherol)was developed and its performance characteristicsdetermined by [facility]. It has not been cleared or approvedby the Food and Drug Administration. Test(s) 938858-Vravvzf B6was developed a nd its performance characteristicsdetermined by [facility]. It has not been cleared or approvedby the Food and Drug Administration.Test(s) 308953-Clt. B1, Whole Bloodwas developed and its performance characteristicsdetermined by [facility]. It has not been cleared or approvedby the Food and Drug Administration.Test(s) 004276-Cqnvkgh E(Alpha Tocopherol); 567485-Fgauwwj E(Gamma Tocopherol)was developed and its performance characteristicsdetermined by [facility]. It has not been cleared or approvedby the Food and Drug Administration. Name Value Range Interpretation Code Description Data Julianna rce(s) Supporting Document(s) Folate [Mass/volume] in Serum or Plasma 14.5 ng/mL [facility] FOLATE INTERPRETATION NORMAL: GREATER THAN 5.38 INDETERMINATE: 3.38 - 5.38 DEFICIENT: LESS THAN 3.37 ID Date Data Source [id number] 11/21/2019 04:48:00 PM EDT [facility] Test(s) 641078-Cdjnbry B6was developed a nd its performance characteristicsdetermined by [facility]. It has not been cleared or approvedby the Food and Drug Administration.Test(s) 238790-Uju. B1, Whole Bloodwas developed and its performance characteristicsdetermined by [facility]. It has not been cleared or approvedby the Food and Drug Administration.Test(s) 663427-Ivksplj E(Alpha Tocopherol); 183019-Bgtgiss E(Gamma Tocopherol)was developed and its performance characteristicsdetermined by [facility]. It has not been cleared or approvedby the Food and Drug Administration. Test(s) 333471-Otegcjl B6was developed a nd its performance characteristicsdetermined by [facility]. It has not been cleared or approvedby the Food and Drug Administration.Test(s) 513887-Btx. B1, Whole Bloodwas developed and its performance characteristicsdetermined by [facility]. It has not been cleared or approvedby the Food and Drug Administration.Test(s) 041396-Wlmimhm E(Alpha Tocopherol); 926628-Ibqhpmb E(Gamma Tocopherol)was developed and its performance characteristicsdetermined by [facility]. It has not been cleared or approvedby the Food and Drug Administration. Test(s) 451412-Vdklmti B6was developed a nd its performance characteristicsdetermined by [facility]. It has not been cleared or approvedby the Food and Drug Administration.Test(s) 350223-Hax. B1, Whole Bloodwas developed and its performance characteristicsdetermined by [facility]. It has not been cleared or approvedby the Food and Drug Administration.Test(s) 966009-Dbyzrgq E(Alpha Tocopherol); 994935-Ebwunrl E(Gamma Tocopherol)was developed and its performance characteristicsdetermined by [facility]. It has not been cleared or approvedby the Food and Drug Administration. Test(s) 754361-Asjohne B6was developed a nd its performance characteristicsdetermined by [facility]. It has not been cleared or approvedby the Food and Drug Administration.Test(s) 704798-Rmw. B1, Whole Bloodwas developed and its performance characteristicsdetermined by [facility]. It has not been cleared or approvedby the Food and Drug Administration.Test(s) 234611-Ijsxwgx E(Alpha Tocopherol); 231538-Ysdvzmj E(Gamma Tocopherol)was developed and its performance characteristicsdetermined by [facility]. It has not been cleared or approvedby the Food and Drug Administration. Test(s) 284048-Zzweyaw B6was developed a nd its performance characteristicsdetermined by [facility]. It has not been cleared or approvedby the Food and Drug Administration.Test(s) 798113-Gga. B1, Whole Bloodwas developed and its performance characteristicsdetermined by [facility]. It has not been cleared or approvedby the Food and Drug Administration.Test(s) 903986-Hrmqutd E(Alpha Tocopherol); 318991-Vwxolii E(Gamma Tocopherol)was developed and its performance characteristicsdetermined by [facility]. It has not been cleared or approvedby the Food and Drug Administration. Test(s) 436781-Cfgvuut B6was developed a nd its performance characteristicsdetermined by [facility]. It has not been cleared or approvedby the Food and Drug Administration.Test(s) 628766-Wbi. B1, Whole Bloodwas developed and its performance characteristicsdetermined by [facility]. It has not been cleared or approvedby the Food and Drug Administration.Test(s) 256083-Gafdnko E(Alpha Tocopherol); 539284-Xxtzwsm E(Gamma Tocopherol)was developed and its performance characteristicsdetermined by [facility]. It has not been cleared or approvedby the Food and Drug Administration. Test(s) 289483-Jtgtbjt B6was developed a nd its performance characteristicsdetermined by [facility]. It has not been cleared or approvedby the Food and Drug Administration.Test(s) 994088-Prh. B1, Whole Bloodwas developed and its performance characteristicsdetermined by [facility]. It has not been cleared or approvedby the Food and Drug Administration.Test(s) 861572-Escvjvd E(Alpha Tocopherol); 902363-Ljzjykd E(Gamma Tocopherol)was developed and its performance characteristicsdetermined by [facility]. It has not been cleared or approvedby the Food and Drug Administration. Test(s) 616515-Bvtsmlc B6was developed a nd its performance characteristicsdetermined by [facility]. It has not been cleared or approvedby the Food and Drug Administration.Test(s) 124775-Qos. B1, Whole Bloodwas developed and its performance characteristicsdetermined by [facility]. It has not been cleared or approvedby the Food and Drug Administration.Test(s) 426580-Dhvpvsi E(Alpha Tocopherol); 076086-Lsbjtlx E(Gamma Tocopherol)was developed and its performance characteristicsdetermined by [facility]. It has not been cleared or approvedby the Food and Drug Administration. Test(s) 681930-Kpebbfq B6was developed a nd its performance characteristicsdetermined by [facility]. It has not been cleared or approvedby the Food and Drug Administration.Test(s) 673274-Qaa. B1, Whole Bloodwas developed and its performance characteristicsdetermined by [facility]. It has not been cleared or approvedby the Food and Drug Administration.Test(s) 342340-Ooxcdvf E(Alpha Tocopherol); 202386-Ofxifum E(Gamma Tocopherol)was developed and its performance characteristicsdetermined by [facility]. It has not been cleared or approvedby the Food and Drug Administration. Name Value Range Interpretation Code Description Data Julianna rce(s) Supporting Document(s) Erythrocyte sedimentation rate by Westergren method 20 mm/hr 0-30 N [facility] @Reenter manual test result: 20@by Sri Albrecht at 11/21/19 1648. ID Date Data Source [id number] 11/25/2019 08:06:00 PM EDT [facility] Test(s) 139546-Lnexlzj B6was developed a nd its performance characteristicsdetermined by [facility]. It has not been cleared or approvedby the Food and Drug Administration.Test(s) 796547-Pod. B1, Whole Bloodwas developed and its performance characteristicsdetermined by [facility]. It has not been cleared or approvedby the Food and Drug Administration.Test(s) 490382-Oucwtlh E(Alpha Tocopherol); 300340-Ujucydk E(Gamma Tocopherol)was developed and its performance characteristicsdetermined by [facility]. It has not been cleared or approvedby the Food and Drug Administration. Test(s) 663129-Ecdxwgu B6was developed a nd its performance characteristicsdetermined by [facility]. It has not been cleared or approvedby the Food and Drug Administration.Test(s) 966367-Ejd. B1, Whole Bloodwas developed and its performance characteristicsdetermined by [facility]. It has not been cleared or approvedby the Food and Drug Administration.Test(s) 183417-Aaozcbq E(Alpha Tocopherol); 502614-Xtscpto E(Gamma Tocopherol)was developed and its performance characteristicsdetermined by [facility]. It has not been cleared or approvedby the Food and Drug Administration. Test(s) 717088-Hanuzfp B6was developed a nd its performance characteristicsdetermined by [facility]. It has not been cleared or approvedby the Food and Drug Administration.Test(s) 688714-Ryg. B1, Whole Bloodwas developed and its performance characteristicsdetermined by [facility]. It has not been cleared or approvedby the Food and Drug Administration.Test(s) 655376-Qmcdcrh E(Alpha Tocopherol); 989233-Itzfgii E(Gamma Tocopherol)was developed and its performance characteristicsdetermined by [facility]. It has not been cleared or approvedby the Food and Drug Administration. Test(s) 850129-Orfssag B6was developed a nd its performance characteristicsdetermined by [facility]. It has not been cleared or approvedby the Food and Drug Administration.Test(s) 682457-Aur. B1, Whole Bloodwas developed and its performance characteristicsdetermined by [facility]. It has not been cleared or approvedby the Food and Drug Administration.Test(s) 482103-Vhialox E(Alpha Tocopherol); 121945-Clbpfbk E(Gamma Tocopherol)was developed and its performance characteristicsdetermined by [facility]. It has not been cleared or approvedby the Food and Drug Administration. Test(s) 869328-Jlcishk B6was developed a nd its performance characteristicsdetermined by [facility]. It has not been cleared or approvedby the Food and Drug Administration.Test(s) 014339-Vqp. B1, Whole Bloodwas developed and its performance characteristicsdetermined by [facility]. It has not been cleared or approvedby the Food and Drug Administration.Test(s) 947194-Qeufthg E(Alpha Tocopherol); 887727-Knjmktx E(Gamma Tocopherol)was developed and its performance characteristicsdetermined by [facility]. It has not been cleared or approvedby the Food and Drug Administration. Test(s) 703880-Wepwzav B6was developed a nd its performance characteristicsdetermined by [facility]. It has not been cleared or approvedby the Food and Drug Administration.Test(s) 072365-Ybr. B1, Whole Bloodwas developed and its performance characteristicsdetermined by [facility]. It has not been cleared or approvedby the Food and Drug Administration.Test(s) 634557-Roghoqb E(Alpha Tocopherol); 953753-Kkzqnfj E(Gamma Tocopherol)was developed and its performance characteristicsdetermined by [facility]. It has not been cleared or approvedby the Food and Drug Administration. Test(s) 150097-Hlmfjgb B6was developed a nd its performance characteristicsdetermined by [facility]. It has not been cleared or approvedby the Food and Drug Administration.Test(s) 193463-Qks. B1, Whole Bloodwas developed and its performance characteristicsdetermined by [facility]. It has not been cleared or approvedby the Food and Drug Administration.Test(s) 283082-Tsfkwqf E(Alpha Tocopherol); 980498-Nrdahcu E(Gamma Tocopherol)was developed and its performance characteristicsdetermined by [facility]. It has not been cleared or approvedby the Food and Drug Administration. Test(s) 633669-Xgdfykb B6was developed a nd its performance characteristicsdetermined by [facility]. It has not been cleared or approvedby the Food and Drug Administration.Test(s) 829921-Ojv. B1, Whole Bloodwas developed and its performance characteristicsdetermined by [facility]. It has not been cleared or approvedby the Food and Drug Administration.Test(s) 590588-Kcsrbvk E(Alpha Tocopherol); 049642-Ztypsja E(Gamma Tocopherol)was developed and its performance characteristicsdetermined by [facility]. It has not been cleared or approvedby the Food and Drug Administration. Test(s) 340810-Yhheais B6was developed a nd its performance characteristicsdetermined by [facility]. It has not been cleared or approvedby the Food and Drug Administration.Test(s) 470443-Iej. B1, Whole Bloodwas developed and its performance characteristicsdetermined by [facility]. It has not been cleared or approvedby the Food and Drug Administration.Test(s) 541835-Zgxlkjt E(Alpha Tocopherol); 820280-Pvnvabs E(Gamma Tocopherol)was developed and its performance characteristicsdetermined by [facility]. It has not been cleared or approvedby the Food and Drug Administration. Name Value Range Interpretation Code Description Data Julianna rce(s) Supporting Document(s) Neutrophil cytoplasmic Ab.classic [Titer] in Serum by Immunofluorescence <1:20 titer Neg:<1:20 [facility] Neutrophil cytoplasmic Ab.perinuclear [Titer] in Serum by Immunofluorescence <1:20 titer Neg:<1:20 [facility] The presence of positive fluorescence ex hibiting P-ANCA orC-ANCA patterns alone is not specific for the diagnosis ofWegener's Granulomatosis (WG) or microscopic polyangiitis.Decisions about treatment should not be based solely onANCA IFA results. The International ANCA Group Consensusrecommends follow up testing of positive sera with both CT-3 and MPO-ANCA enzyme immunoassays. As many as 5% serumsamples are positive only by EIA. Ref. AM J Clin Xrtyuy1536;111:507-513. Neutrophil cytoplasmic Ab.perinuclear.at ypical [Titer] in Serum by Immunofluorescence <1:20 titer Neg:<1:20 [facility] The atypical pANCA pattern has been obse rved in asignificant percentage of patients with ulcerative colitis,primary sclerosing cholangitis and autoimmune hepatitis.Performed at: [facility] [id number] Director: Renetta Aguilera MD, Phone: [phone] ID Date Data Source [id number] 11/21/2019 04:48:00 PM EDT [facility] Test(s) 589674-Gmqelms B6was developed a nd its performance characteristicsdetermined by [facility] [employer]. It has not been cleared or approvedby the Food and Drug Administration.Test(s) 347308-Ebb. B1, Whole Bloodwas developed and its performance characteristicsdetermined by [employer]. It has not been cleared or approvedby the Food and Drug Administration.Test(s) 379783-Kaqbarq E(Alpha Tocopherol); 815998-Wvuxryk E(Gamma Tocopherol)was developed and its performance characteristicsdetermined by [facility] [employer]. It has not been cleared or approvedby the Food and Drug Administration. Test(s) 892220-Ldtkcat B6was developed a nd its performance characteristicsdetermined by [employer]. It has not been cleared or approvedby the Food and Drug Administration.Test(s) 420401-Pjj. B1, Whole Bloodwas developed and its performance characteristicsdetermined by [facility]. It has not been cleared or approvedby the Food and Drug Administration.Test(s) 305670-Jlplemw E(Alpha Tocopherol); 141973-Xrfbvuq E(Gamma Tocopherol)was developed and its performance characteristicsdetermined by [facility]. It has not been cleared or approvedby the Food and Drug Administration. Test(s) 759696-Ltrwsmp B6was developed a nd its performance characteristicsdetermined by [facility]. It has not been cleared or approvedby the Food and Drug Administration.Test(s) 523853-Vou. B1, Whole Bloodwas developed and its performance characteristicsdetermined by [facility]. It has not been cleared or approvedby the Food and Drug Administration.Test(s) 082943-Hjaufes E(Alpha Tocopherol); 080548-Yasfmkd E(Gamma Tocopherol)was developed and its performance characteristicsdetermined by [facility]. It has not been cleared or approvedby the Food and Drug Administration. Test(s) 751712-Hbqxwcp B6was developed a nd its performance characteristicsdetermined by [facility]. It has not been cleared or approvedby the Food and Drug Administration.Test(s) 048553-Hbj. B1, Whole Bloodwas developed and its performance characteristicsdetermined by [facility]. It has not been cleared or approvedby the Food and Drug Administration.Test(s) 316665-Ryspity E(Alpha Tocopherol); 572433-Fzoolee E(Gamma Tocopherol)was developed and its performance characteristicsdetermined by [facility]. It has not been cleared or approvedby the Food and Drug Administration. Test(s) 866498-Wscuaog B6was developed a nd its performance characteristicsdetermined by [facility]. It has not been cleared or approvedby the Food and Drug Administration.Test(s) 334133-Vvy. B1, Whole Bloodwas developed and its performance characteristicsdetermined by [facility]. It has not been cleared or approvedby the Food and Drug Administration.Test(s) 538634-Sdpadod E(Alpha Tocopherol); 489577-Tqsqvcy E(Gamma Tocopherol)was developed and its performance characteristicsdetermined by [facility]. It has not been cleared or approvedby the Food and Drug Administration. Test(s) 399275-Kgovzoy B6was developed a nd its performance characteristicsdetermined by [facility]. It has not been cleared or approvedby the Food and Drug Administration.Test(s) 991956-Buk. B1, Whole Bloodwas developed and its performance characteristicsdetermined by [facility]. It has not been cleared or approvedby the Food and Drug Administration.Test(s) 738598-Vsgrnpr E(Alpha Tocopherol); 621101-Hquwuyw E(Gamma Tocopherol)was developed and its performance characteristicsdetermined by [facility]. It has not been cleared or approvedby the Food and Drug Administration. Test(s) 400237-Ruyaihg B6was developed a nd its performance characteristicsdetermined by [facility]. It has not been cleared or approvedby the Food and Drug Administration.Test(s) 693629-Mfn. B1, Whole Bloodwas developed and its performance characteristicsdetermined by [facility]. It has not been cleared or approvedby the Food and Drug Administration.Test(s) 089755-Tqpqhst E(Alpha Tocopherol); 095803-Nrartnb E(Gamma Tocopherol)was developed and its performance characteristicsdetermined by [facility]. It has not been cleared or approvedby the Food and Drug Administration. Test(s) 811336-Elklccz B6was developed a nd its performance characteristicsdetermined by [facility]. It has not been cleared or approvedby the Food and Drug Administration.Test(s) 938420-Rob. B1, Whole Bloodwas developed and its performance characteristicsdetermined by [facility]. It has not been cleared or approvedby the Food and Drug Administration.Test(s) 989012-Rrttsdw E(Alpha Tocopherol); 127920-Fmnbjgj E(Gamma Tocopherol)was developed and its performance characteristicsdetermined by [facility]. It has not been cleared or approvedby the Food and Drug Administration. Test(s) 817074-Ygggfkg B6was developed a nd its performance characteristicsdetermined by [facility]. It has not been cleared or approvedby the Food and Drug Administration.Test(s) 525850-Jbn. B1, Whole Bloodwas developed and its performance characteristicsdetermined by [facility]. It has not been cleared or approvedby the Food and Drug Administration.Test(s) 523751-Jjomhec E(Alpha Tocopherol); 798911-Xruukpt E(Gamma Tocopherol)was developed and its performance characteristicsdetermined by [facility]. It has not been cleared or approvedby the Food and Drug Administration. Name Value Range Interpretation Code Description Data Julianna rce(s) Supporting Document(s) Thyrotropin [Units/volume] in Serum or Plasma by Detec tion limit <= 0.005 mIU/L 2.61 u[iU]/mL [facility]35[facility] Date Data Source [id number] 11/25/2019 08:06:00 PM EDT [facility] Test(s) 697608-Zsdzcyo B6was developed a nd its performance characteristicsdetermined by [facility]. It has not been cleared or approvedby the Food and Drug Administration.Test(s) 718578-Qgv. B1, Whole Bloodwas developed and its performance characteristicsdetermined by [facility]. It has not been cleared or approvedby the Food and Drug Administration.Test(s) 670922-Khxuywh E(Alpha Tocopherol); 682520-Ttzqbuj E(Gamma Tocopherol)was developed and its performance characteristicsdetermined by [facility]. It has not been cleared or approvedby the Food and Drug Administration. Test(s) 376819-Gqjufjf B6was developed a nd its performance characteristicsdetermined by [facility]. It has not been cleared or approvedby the Food and Drug Administration.Test(s) 095286-Bea. B1, Whole Bloodwas developed and its performance characteristicsdetermined by [facility]. It has not been cleared or approvedby the Food and Drug Administration.Test(s) 137206-Lalgsvl E(Alpha Tocopherol); 014423-Rhoafou E(Gamma Tocopherol)was developed and its performance characteristicsdetermined by [facility]. It has not been cleared or approvedby the Food and Drug Administration. Test(s) 787555-Lrympuc B6was developed a nd its performance characteristicsdetermined by [facility]. It has not been cleared or approvedby the Food and Drug Administration.Test(s) 049920-Rjt. B1, Whole Bloodwas developed and its performance characteristicsdetermined by [facility]. It has not been cleared or approvedby the Food and Drug Administration.Test(s) 847224-Jkxtdnz E(Alpha Tocopherol); 907544-Cwfyiol E(Gamma Tocopherol)was developed and its performance characteristicsdetermined by [facility]. It has not been cleared or approvedby the Food and Drug Administration. Test(s) 517446-Clsekoj B6was developed a nd its performance characteristicsdetermined by [facility]. It has not been cleared or approvedby the Food and Drug Administration.Test(s) 278612-Oyj. B1, Whole Bloodwas developed and its performance characteristicsdetermined by [facility]. It has not been cleared or approvedby the Food and Drug Administration.Test(s) 883037-Rtfzknk E(Alpha Tocopherol); 363738-Sovktjn E(Gamma Tocopherol)was developed and its performance characteristicsdetermined by [facility]. It has not been cleared or approvedby the Food and Drug Administration. Test(s) 799605-Qxlpsuu B6was developed a nd its performance characteristicsdetermined by [facility]. It has not been cleared or approvedby the Food and Drug Administration.Test(s) 760548-Wdx. B1, Whole Bloodwas developed and its performance characteristicsdetermined by [facility]. It has not been cleared or approvedby the Food and Drug Administration.Test(s) 588566-Leeptyn E(Alpha Tocopherol); 167430-Bbtplkd E(Gamma Tocopherol)was developed and its performance characteristicsdetermined by [facility]. It has not been cleared or approvedby the Food and Drug Administration. Test(s) 372740-Meggsty B6was developed a nd its performance characteristicsdetermined by [facility]. It has not been cleared or approvedby the Food and Drug Administration.Test(s) 876460-Ojg. B1, Whole Bloodwas developed and its performance characteristicsdetermined by [facility]. It has not been cleared or approvedby the Food and Drug Administration.Test(s) 941138-Exxjbfc E(Alpha Tocopherol); 372401-Jltqfkz E(Gamma Tocopherol)was developed and its performance characteristicsdetermined by [facility]. It has not been cleared or approvedby the Food and Drug Administration. Test(s) 796954-Hebyipw B6was developed a nd its performance characteristicsdetermined by [facility]. It has not been cleared or approvedby the Food and Drug Administration.Test(s) 741089-Her. B1, Whole Bloodwas developed and its performance characteristicsdetermined by [facility]. It has not been cleared or approvedby the Food and Drug Administration.Test(s) 017420-Gxwzzal E(Alpha Tocopherol); 657046-Cbkbhtd E(Gamma Tocopherol)was developed and its performance characteristicsdetermined by [facility]. It has not been cleared or approvedby the Food and Drug Administration. Test(s) 182968-Ixyjryr B6was developed a nd its performance characteristicsdetermined by [facility]. It has not been cleared or approvedby the Food and Drug Administration.Test(s) 325089-Wck. B1, Whole Bloodwas developed and its performance characteristicsdetermined by [facility]. It has not been cleared or approvedby the Food and Drug Administration.Test(s) 145251-Wetvbpt E(Alpha Tocopherol); 677559-Ywtcvtc E(Gamma Tocopherol)was developed and its performance characteristicsdetermined by [facility]. It has not been cleared or approvedby the Food and Drug Administration. Test(s) 885280-Sewfiwi B6was developed a nd its performance characteristicsdetermined by [facility]. It has not been cleared or approvedby the Food and Drug Administration.Test(s) 714480-Gmg. B1, Whole Bloodwas developed and its performance characteristicsdetermined by [facility]. It has not been cleared or approvedby the Food and Drug Administration.Test(s) 140245-Dswdyje E(Alpha Tocopherol); 839711-Kxzdarf E(Gamma Tocopherol)was developed and its performance characteristicsdetermined by [facility]. It has not been cleared or approvedby the Food and Drug Administration. Name Value Range Interpretation Code Description Data Julianna rce(s) Supporting Document(s) Thiamine [Moles/volume] in Blood 175.2 nmol/L 66.5-200.0 [facility] Performed at: [address] [id number] Director: Renetta Aguilera MD, Phone: [phone] ID Date Data Source [id number] 11/21/2019 04:48:00 PM EDT [facility] Test(s) 250033-Mjbkepy B6was developed a nd its performance characteristicsdetermined by [facility]. It has not been cleared or approvedby the Food and Drug Administration.Test(s) 260525-Bgt. B1, Whole Bloodwas developed and its performance characteristicsdetermined by [facility]. It has not been cleared or approvedby the Food and Drug Administration.Test(s) 806645-Bwlmiva E(Alpha Tocopherol); 386874-Ouqixfq E(Gamma Tocopherol)was developed and its performance characteristicsdetermined by [facility]. It has not been cleared or approvedby the Food and Drug Administration. Test(s) 818782-Aopuocv B6was developed a nd its performance characteristicsdetermined by [facility]. It has not been cleared or approvedby the Food and Drug Administration.Test(s) 445316-Isf. B1, Whole Bloodwas developed and its performance characteristicsdetermined by [facility]. It has not been cleared or approvedby the Food and Drug Administration.Test(s) 625066-Rynccvl E(Alpha Tocopherol); 376004-Omqbvom E(Gamma Tocopherol)was developed and its performance characteristicsdetermined by [facility]. It has not been cleared or approvedby the Food and Drug Administration. Test(s) 769793-Ketxqdi B6was developed a nd its performance characteristicsdetermined by [facility]. It has not been cleared or approvedby the Food and Drug Administration.Test(s) 983654-Ypq. B1, Whole Bloodwas developed and its performance characteristicsdetermined by [facility]. It has not been cleared or approvedby the Food and Drug Administration.Test(s) 069629-Hauzrei E(Alpha Tocopherol); 793490-Xowuoyw E(Gamma Tocopherol)was developed and its performance characteristicsdetermined by [facility]. It has not been cleared or approvedby the Food and Drug Administration. Test(s) 307548-Ritwbrd B6was developed a nd its performance characteristicsdetermined by [facility]. It has not been cleared or approvedby the Food and Drug Administration.Test(s) 303164-Iny. B1, Whole Bloodwas developed and its performance characteristicsdetermined by [facility]. It has not been cleared or approvedby the Food and Drug Administration.Test(s) 665255-Goqnqxz E(Alpha Tocopherol); 716715-Cwemmrl E(Gamma Tocopherol)was developed and its performance characteristicsdetermined by [facility]. It has not been cleared or approvedby the Food and Drug Administration. Test(s) 570465-Rphstgj B6was developed a nd its performance characteristicsdetermined by [facility]. It has not been cleared or approvedby the Food and Drug Administration.Test(s) 006588-Yyt. B1, Whole Bloodwas developed and its performance characteristicsdetermined by [facility]. It has not been cleared or approvedby the Food and Drug Administration.Test(s) 116807-Ievovnl E(Alpha Tocopherol); 119718-Gpcuolh E(Gamma Tocopherol)was developed and its performance characteristicsdetermined by [facility]. It has not been cleared or approvedby the Food and Drug Administration. Test(s) 333019-Phcrilz B6was developed a nd its performance characteristicsdetermined by [facility]. It has not been cleared or approvedby the Food and Drug Administration.Test(s) 421450-Vle. B1, Whole Bloodwas developed and its performance characteristicsdetermined by [facility]. It has not been cleared or approvedby the Food and Drug Administration.Test(s) 673348-Cmwckvc E(Alpha Tocopherol); 140414-Lgtpgnf E(Gamma Tocopherol)was developed and its performance characteristicsdetermined by [facility]. It has not been cleared or approvedby the Food and Drug Administration. Test(s) 876138-Uowrokz B6was developed a nd its performance characteristicsdetermined by [facility]. It has not been cleared or approvedby the Food and Drug Administration.Test(s) 904778-Uru. B1, Whole Bloodwas developed and its performance characteristicsdetermined by [facility]. It has not been cleared or approvedby the Food and Drug Administration.Test(s) 643177-Rcgbemp E(Alpha Tocopherol); 820912-Rdkrhaa E(Gamma Tocopherol)was developed and its performance characteristicsdetermined by [facility]. It has not been cleared or approvedby the Food and Drug Administration. Test(s) 337395-Dmzktnm B6was developed a nd its performance characteristicsdetermined by [facility]. It has not been cleared or approvedby the Food and Drug Administration.Test(s) 651791-Gok. B1, Whole Bloodwas developed and its performance characteristicsdetermined by [facility]. It has not been cleared or approvedby the Food and Drug Administration.Test(s) 708969-Xhaonjw E(Alpha Tocopherol); 108629-Tiretmt E(Gamma Tocopherol)was developed and its performance characteristicsdetermined by [facility]. It has not been cleared or approvedby the Food and Drug Administration. Test(s) 082231-Ddsdsso B6was developed a nd its performance characteristicsdetermined by [facility]. It has not been cleared or approvedby the Food and Drug Administration.Test(s) 159961-Gli. B1, Whole Bloodwas developed and its performance characteristicsdetermined by [facility]. It has not been cleared or approvedby the Food and Drug Administration.Test(s) 871558-Yjehlti E(Alpha Tocopherol); 333450-Czuikxr E(Gamma Tocopherol)was developed and its performance characteristicsdetermined by [facility]. It has not been cleared or approvedby the Food and Drug Administration. Name Value Range Interpretation Code Description Data Julianna rce(s) Supporting Document(s) Rheumatoid factor [Units/volume] in Serum by Nephelometry 96.0 [ IU]/mL 0.0-14.0 Above high normal [facility] ID Date Data Source [id number] 11/25/2019 08:06:00 PM EDT [facility] Test(s) 220811-Meertly B6was developed a nd its performance characteristicsdetermined by [facility]. It has not been cleared or approvedby the Food and Drug Administration.Test(s) 671072-Pjk. B1, Whole Bloodwas developed and its performance characteristicsdetermined by [facility]. It has not been cleared or approvedby the Food and Drug Administration.Test(s) 848261-Rczazpk E(Alpha Tocopherol); 403511-Pnhfwgo E(Gamma Tocopherol)was developed and its performance characteristicsdetermined by [facility]. It has not been cleared or approvedby the Food and Drug Administration. Test(s) 352614-Svtrmcr B6was developed a nd its performance characteristicsdetermined by [facility]. It has not been cleared or approvedby the Food and Drug Administration.Test(s) 052166-Agf. B1, Whole Bloodwas developed and its performance characteristicsdetermined by [facility]. It has not been cleared or approvedby the Food and Drug Administration.Test(s) 206006-Vwqaikk E(Alpha Tocopherol); 923334-Jdxysid E(Gamma Tocopherol)was developed and its performance characteristicsdetermined by [facility]. It has not been cleared or approvedby the Food and Drug Administration. Test(s) 490936-Cfnlmfd B6was developed a nd its performance characteristicsdetermined by [facility]. It has not been cleared or approvedby the Food and Drug Administration.Test(s) 940705-Vfj. B1, Whole Bloodwas developed and its performance characteristicsdetermined by [facility]. It has not been cleared or approvedby the Food and Drug Administration.Test(s) 495862-Nlaxbmi E(Alpha Tocopherol); 296444-Fhprfsr E(Gamma Tocopherol)was developed and its performance characteristicsdetermined by [facility]. It has not been cleared or approvedby the Food and Drug Administration. Test(s) 935515-Svccdoj B6was developed a nd its performance characteristicsdetermined by [facility]. It has not been cleared or approvedby the Food and Drug Administration.Test(s) 171395-Gjq. B1, Whole Bloodwas developed and its performance characteristicsdetermined by [facility]. It has not been cleared or approvedby the Food and Drug Administration.Test(s) 941152-Iemtoou E(Alpha Tocopherol); 534872-Agahrwf E(Gamma Tocopherol)was developed and its performance characteristicsdetermined by [facility]. It has not been cleared or approvedby the Food and Drug Administration. Test(s) 538949-Fvtjdxh B6was developed a nd its performance characteristicsdetermined by [facility]. It has not been cleared or approvedby the Food and Drug Administration.Test(s) 569926-Fjs. B1, Whole Bloodwas developed and its performance characteristicsdetermined by [facility]. It has not been cleared or approvedby the Food and Drug Administration.Test(s) 348452-Dpzcpmm E(Alpha Tocopherol); 946384-Zjhrrqk E(Gamma Tocopherol)was developed and its performance characteristicsdetermined by [facility]. It has not been cleared or approvedby the Food and Drug Administration. Test(s) 037109-Kcwanow B6was developed a nd its performance characteristicsdetermined by [facility]. It has not been cleared or approvedby the Food and Drug Administration.Test(s) 902472-Trs. B1, Whole Bloodwas developed and its performance characteristicsdetermined by [facility]. It has not been cleared or approvedby the Food and Drug Administration.Test(s) 734589-Fixaujm E(Alpha Tocopherol); 432655-Yhvvhse E(Gamma Tocopherol)was developed and its performance characteristicsdetermined by [facility]. It has not been cleared or approvedby the Food and Drug Administration. Test(s) 252316-Hxacqro B6was developed a nd its performance characteristicsdetermined by [facility]. It has not been cleared or approvedby the Food and Drug Administration.Test(s) 117238-Yai. B1, Whole Bloodwas developed and its performance characteristicsdetermined by [facility]. It has not been cleared or approvedby the Food and Drug Administration.Test(s) 720508-Rcfenih E(Alpha Tocopherol); 167015-Bzrqevy E(Gamma Tocopherol)was developed and its performance characteristicsdetermined by [facility]. It has not been cleared or approvedby the Food and Drug Administration. Test(s) 233470-Rnlivfu B6was developed a nd its performance characteristicsdetermined by [facility]. It has not been cleared or approvedby the Food and Drug Administration.Test(s) 053522-Umc. B1, Whole Bloodwas developed and its performance characteristicsdetermined by [facility]. It has not been cleared or approvedby the Food and Drug Administration.Test(s) 036278-Khwxemj E(Alpha Tocopherol); 658823-Ipquzvj E(Gamma Tocopherol)was developed and its performance characteristicsdetermined by [facility]. It has not been cleared or approvedby the Food and Drug Administration. Test(s) 391263-Rcawghe B6was developed a nd its performance characteristicsdetermined by [facility]. It has not been cleared or approvedby the Food and Drug Administration.Test(s) 597107-Qvh. B1, Whole Bloodwas developed and its performance characteristicsdetermined by [facility]. It has not been cleared or approvedby the Food and Drug Administration.Test(s) 514322-Chdshlf E(Alpha Tocopherol); 991194-Jrbsgrd E(Gamma Tocopherol)was developed and its performance characteristicsdetermined by [facility]. It has not been cleared or approvedby the Food and Drug Administration. Name Value Range Interpretation Code Description Data Julianna rce(s) Supporting Document(s) Pyridoxine [Mass/volume] in Serum or Plasma 11.6 ug/L 2.0-32.8 [facility] Performed at: [address], [place] [id number] Director: Renetta Aguilera MD, Phone: [phone] ID Date Data Source [id number] 11/25/2019 08:06:00 PM EDT [facility] Test(s) 780054-Arkjvnx B6was developed a nd its performance characteristicsdetermined by [facility]. It has not been cleared or approvedby the Food and Drug Administration.Test(s) 959175-Bdf. B1, Whole Bloodwas developed and its performance characteristicsdetermined by [facility]. It has not been cleared or approvedby the Food and Drug Administration.Test(s) 769920-Ltohcpp E(Alpha Tocopherol); 940218-Qkjdtaw E(Gamma Tocopherol)was developed and its performance characteristicsdetermined by [facility]. It has not been cleared or approvedby the Food and Drug Administration. Test(s) 342023-Zqmobve B6was developed a nd its performance characteristicsdetermined by [facility]. It has not been cleared or approvedby the Food and Drug Administration.Test(s) 801817-Wjm. B1, Whole Bloodwas developed and its performance characteristicsdetermined by [facility]. It has not been cleared or approvedby the Food and Drug Administration.Test(s) 536872-Iejdvhj E(Alpha Tocopherol); 769359-Umeaogw E(Gamma Tocopherol)was developed and its performance characteristicsdetermined by [facility]. It has not been cleared or approvedby the Food and Drug Administration. Test(s) 994230-Wxgaywk B6was developed a nd its performance characteristicsdetermined by [facility]. It has not been cleared or approvedby the Food and Drug Administration.Test(s) 747461-Qgd. B1, Whole Bloodwas developed and its performance characteristicsdetermined by [facility]. It has not been cleared or approvedby the Food and Drug Administration.Test(s) 681300-Khirgye E(Alpha Tocopherol); 085739-Srmfhnp E(Gamma Tocopherol)was developed and its performance characteristicsdetermined by [facility]. It has not been cleared or approvedby the Food and Drug Administration. Test(s) 780504-Fkygrjh B6was developed a nd its performance characteristicsdetermined by [facility]. It has not been cleared or approvedby the Food and Drug Administration.Test(s) 224123-Doz. B1, Whole Bloodwas developed and its performance characteristicsdetermined by [facility]. It has not been cleared or approvedby the Food and Drug Administration.Test(s) 674827-Vpgrthx E(Alpha Tocopherol); 268950-Gktwody E(Gamma Tocopherol)was developed and its performance characteristicsdetermined by [facility]. It has not been cleared or approvedby the Food and Drug Administration. Test(s) 184733-Bytdotp B6was developed a nd its performance characteristicsdetermined by [facility]. It has not been cleared or approvedby the Food and Drug Administration.Test(s) 345759-Zuv. B1, Whole Bloodwas developed and its performance characteristicsdetermined by [facility]. It has not been cleared or approvedby the Food and Drug Administration.Test(s) 728473-Pngkvsc E(Alpha Tocopherol); 571214-Ryugwag E(Gamma Tocopherol)was developed and its performance characteristicsdetermined by [facility]. It has not been cleared or approvedby the Food and Drug Administration. Test(s) 996001-Kvgfhds B6was developed a nd its performance characteristicsdetermined by [facility]. It has not been cleared or approvedby the Food and Drug Administration.Test(s) 760297-Uph. B1, Whole Bloodwas developed and its performance characteristicsdetermined by [facility]. It has not been cleared or approvedby the Food and Drug Administration.Test(s) 666409-Cahxatq E(Alpha Tocopherol); 239680-Qwtnewy E(Gamma Tocopherol)was developed and its performance characteristicsdetermined by [facility]. It has not been cleared or approvedby the Food and Drug Administration. Test(s) 286264-Pokihpi B6was developed a nd its performance characteristicsdetermined by [facility]. It has not been cleared or approvedby the Food and Drug Administration.Test(s) 137306-Exb. B1, Whole Bloodwas developed and its performance characteristicsdetermined by [facility]. It has not been cleared or approvedby the Food and Drug Administration.Test(s) 892552-Jsguepq E(Alpha Tocopherol); 314486-Melzzeh E(Gamma Tocopherol)was developed and its performance characteristicsdetermined by [facility]. It has not been cleared or approvedby the Food and Drug Administration. Test(s) 642321-Jrdobli B6was developed a nd its performance characteristicsdetermined by [facility]. It has not been cleared or approvedby the Food and Drug Administration.Test(s) 898584-Pef. B1, Whole Bloodwas developed and its performance characteristicsdetermined by [facility]. It has not been cleared or approvedby the Food and Drug Administration.Test(s) 211534-Tiymsjd E(Alpha Tocopherol); 380741-Vsbdjpc E(Gamma Tocopherol)was developed and its performance characteristicsdetermined by [facility]. It has not been cleared or approvedby the Food and Drug Administration. Test(s) 929717-Ssgfjke B6was developed a nd its performance characteristicsdetermined by [facility]. It has not been cleared or approvedby the Food and Drug Administration.Test(s) 116249-Xak. B1, Whole Bloodwas developed and its performance characteristicsdetermined by [facility]. It has not been cleared or approvedby the Food and Drug Administration.Test(s) 048021-Qzezdzy E(Alpha Tocopherol); 979801-Bjaisdb E(Gamma Tocopherol)was developed and its performance characteristicsdetermined by [facility]. It has not been cleared or approvedby the Food and Drug Administration. Name Value Range Interpretation Code Description Data Julianna rce(s) Supporting Document(s) Alpha tocopherol [Mass/volume] in Serum or Plasma 11.8 mg/L 9.0-29.0 [facility] Gamma tocopherol [Mass/volume] in Serum or Plasma 3.3 mg/L 0.5-4.9 [facility] Reference intervals for alpha and gamma- tocopheroldetermined from National Health and Nutrition ExaminationSurvey, 2081-3099. Individuals with alpha- tocopherol levelsless than 5.0 mg/L are considered vitamin E deficient.Performed at: [facility] [place], [place] [id number] Director: Renetta Aguilera MD, Phone: [phone] ID Date Data Source [id number] 11/25/2019 08:06:00 PM EDT [facility] Test(s) 769012-Nkezstn B6was developed a nd its performance characteristicsdetermined by [facility]. It has not been cleared or approvedby the Food and Drug Administration.Test(s) 314100-Zzi. B1, Whole Bloodwas developed and its performance characteristicsdetermined by [facility]. It has not been cleared or approvedby the Food and Drug Administration.Test(s) 714908-Ylzudxd E(Alpha Tocopherol); 347315-Yxvjnjz E(Gamma Tocopherol)was developed and its performance characteristicsdetermined by [facility]. It has not been cleared or approvedby the Food and Drug Administration. Test(s) 189305-Hqdcnss B6was developed a nd its performance characteristicsdetermined by [facility]. It has not been cleared or approvedby the Food and Drug Administration.Test(s) 205534-Dbp. B1, Whole Bloodwas developed and its performance characteristicsdetermined by [facility]. It has not been cleared or approvedby the Food and Drug Administration.Test(s) 770032-Vehmynk E(Alpha Tocopherol); 577936-Bdogaef E(Gamma Tocopherol)was developed and its performance characteristicsdetermined by [facility]. It has not been cleared or approvedby the Food and Drug Administration. Test(s) 535529-Vzqjusd B6was developed a nd its performance characteristicsdetermined by [facility]. It has not been cleared or approvedby the Food and Drug Administration.Test(s) 977322-Hyt. B1, Whole Bloodwas developed and its performance characteristicsdetermined by [facility]. It has not been cleared or approvedby the Food and Drug Administration.Test(s) 347970-Tppkjmm E(Alpha Tocopherol); 955948-Vqnhmid E(Gamma Tocopherol)was developed and its performance characteristicsdetermined by [facility]. It has not been cleared or approvedby the Food and Drug Administration. Test(s) 561679-Phiktac B6was developed a nd its performance characteristicsdetermined by [facility]. It has not been cleared or approvedby the Food and Drug Administration.Test(s) 077534-Dbb. B1, Whole Bloodwas developed and its performance characteristicsdetermined by [facility]. It has not been cleared or approvedby the Food and Drug Administration.Test(s) 260424-Nrdxjnw E(Alpha Tocopherol); 889030-Eldfnaq E(Gamma Tocopherol)was developed and its performance characteristicsdetermined by [facility]. It has not been cleared or approvedby the Food and Drug Administration. Test(s) 864245-Mahhouw B6was developed a nd its performance characteristicsdetermined by [facility]. It has not been cleared or approvedby the Food and Drug Administration.Test(s) 030718-Ray. B1, Whole Bloodwas developed and its performance characteristicsdetermined by [facility]. It has not been cleared or approvedby the Food and Drug Administration.Test(s) 447373-Wajtutr E(Alpha Tocopherol); 253506-Fbqvyer E(Gamma Tocopherol)was developed and its performance characteristicsdetermined by [facility]. It has not been cleared or approvedby the Food and Drug Administration. Test(s) 383759-Obphgto B6was developed a nd its performance characteristicsdetermined by [facility]. It has not been cleared or approvedby the Food and Drug Administration.Test(s) 236106-Whl. B1, Whole Bloodwas developed and its performance characteristicsdetermined by [facility]. It has not been cleared or approvedby the Food and Drug Administration.Test(s) 457536-Ghyoxcy E(Alpha Tocopherol); 967212-Pjaqklq E(Gamma Tocopherol)was developed and its performance characteristicsdetermined by [facility]. It has not been cleared or approvedby the Food and Drug Administration. Test(s) 422999-Vblvepp B6was developed a nd its performance characteristicsdetermined by [facility]. It has not been cleared or approvedby the Food and Drug Administration.Test(s) 603706-Olj. B1, Whole Bloodwas developed and its performance characteristicsdetermined by [facility]. It has not been cleared or approvedby the Food and Drug Administration.Test(s) 345100-Hkccxsf E(Alpha Tocopherol); 498519-Wqsxeyc E(Gamma Tocopherol)was developed and its performance characteristicsdetermined by [facility]. It has not been cleared or approvedby the Food and Drug Administration. Test(s) 248740-Hricmvu B6was developed a nd its performance characteristicsdetermined by [facility]. It has not been cleared or approvedby the Food and Drug Administration.Test(s) 077263-Wul. B1, Whole Bloodwas developed and its performance characteristicsdetermined by [facility]. It has not been cleared or approvedby the Food and Drug Administration.Test(s) 738817-Hxiazkz E(Alpha Tocopherol); 646877-Eqvcafy E(Gamma Tocopherol)was developed and its performance characteristicsdetermined by [employer]. It has not been cleared or approvedby the Food and Drug Administration. Test(s) 277330-Ptulyzo B6was developed a nd its performance characteristicsdetermined by [employer]. It has not been cleared or approvedby the Food and Drug Administration.Test(s) 669446-Hnh. B1, Whole Bloodwas developed and its performance characteristicsdetermined by [employer]. It has not been cleared or approvedby the Food and Drug Administration.Test(s) 770502-Vluyrxa E(Alpha Tocopherol); 346484-Osojerl E(Gamma Tocopherol)was developed and its performance characteristicsdetermined by [employer]. It has not been cleared or approvedby the Food and Drug Administration. Name Value Range Interpretation Code Description Data Julianna rce(s) Supporting Document(s) Albumin [Mass/volume] in Serum or Plasma by Electrophoresis 3.4 g/d L 2.9-4.4 [facility] Alpha 1 globulin [Mass/volume] in Serum or Plasma by Electro phoresis 0.2 g/dL 0.0-0.4 [facility] Alpha 2 globulin [Mass/volume] in Serum or Plasma by Electro phoresis 0.8 g/dL 0.4-1.0 [facility] Beta globulin [Mass/volume] in Serum or Plasma by Electropho resis 1.0 g/dL 0.7-1.3 [facility] Protein.monoclonal [Mass/volume] in Serum or Plasma by Electrophoresis Not Observed Not Observed [facility] Gamma globulin [Mass/volume] in Serum or Plasma by Electroph oresis 1.8 g/dL 0.4-1.8 [facility] Globulin [Mass/volume] in Serum by calculation 3.8 g/dL 2.2-3.9 [facility] Albumin/Globulin [Mass Ratio] in Serum or Plasma 0.9 0.7-1.7 [facility] Protein [Mass/volume] in Serum or Plasma 7.2 g/dL 6.0-8.5 [facility] Laboratory comment [Text] in Report Narrative Comment . [facility] Protein electrophoresis scan will follow via computer,mail, or leadership coach delivery. Report SEE SCANNED REPORT [facility] ID Date Data Source [id number] 11/25/2019 08:06:00 PM EDT [facility] Test(s) 424557-Njhbrhg B6was developed a nd its performance characteristicsdetermined by [facility]. It has not been cleared or approvedby the Food and Drug Administration.Test(s) 754290-Jfa. B1, Whole Bloodwas developed and its performance characteristicsdetermined by [facility]. It has not been cleared or approvedby the Food and Drug Administration.Test(s) 003128-Ivuokcr E(Alpha Tocopherol); 919012-Xyqwgng E(Gamma Tocopherol)was developed and its performance characteristicsdetermined by [facility]. It has not been cleared or approvedby the Food and Drug Administration. Test(s) 988760-Ziytgld B6was developed a nd its performance characteristicsdetermined by [facility]. It has not been cleared or approvedby the Food and Drug Administration.Test(s) 225271-Sqv. B1, Whole Bloodwas developed and its performance characteristicsdetermined by [facility]. It has not been cleared or approvedby the Food and Drug Administration.Test(s) 918442-Fdmjnrq E(Alpha Tocopherol); 608036-Roivtip E(Gamma Tocopherol)was developed and its performance characteristicsdetermined by [facility]. It has not been cleared or approvedby the Food and Drug Administration. Test(s) 841237-Jnuxlmf B6was developed a nd its performance characteristicsdetermined by [facility]. It has not been cleared or approvedby the Food and Drug Administration.Test(s) 432381-Ror. B1, Whole Bloodwas developed and its performance characteristicsdetermined by [facility]. It has not been cleared or approvedby the Food and Drug Administration.Test(s) 889640-Dwrbgmi E(Alpha Tocopherol); 630549-Nkqhhmy E(Gamma Tocopherol)was developed and its performance characteristicsdetermined by [facility]. It has not been cleared or approvedby the Food and Drug Administration. Test(s) 798379-Tazzsjz B6was developed a nd its performance characteristicsdetermined by [facility]. It has not been cleared or approvedby the Food and Drug Administration.Test(s) 445957-Kda. B1, Whole Bloodwas developed and its performance characteristicsdetermined by [facility]. It has not been cleared or approvedby the Food and Drug Administration.Test(s) 603714-Ljxxvda E(Alpha Tocopherol); 341559-Qzakzyt E(Gamma Tocopherol)was developed and its performance characteristicsdetermined by [facility]. It has not been cleared or approvedby the Food and Drug Administration. Test(s) 919267-Corovgi B6was developed a nd its performance characteristicsdetermined by [facility]. It has not been cleared or approvedby the Food and Drug Administration.Test(s) 689040-Ibx. B1, Whole Bloodwas developed and its performance characteristicsdetermined by [facility]. It has not been cleared or approvedby the Food and Drug Administration.Test(s) 310856-Tcqcglc E(Alpha Tocopherol); 339691-Fwjjzvy E(Gamma Tocopherol)was developed and its performance characteristicsdetermined by [facility]. It has not been cleared or approvedby the Food and Drug Administration. Test(s) 559528-Melhfnj B6was developed a nd its performance characteristicsdetermined by [facility]. It has not been cleared or approvedby the Food and Drug Administration.Test(s) 070232-Kog. B1, Whole Bloodwas developed and its performance characteristicsdetermined by [facility]. It has not been cleared or approvedby the Food and Drug Administration.Test(s) 914286-Mskoswx E(Alpha Tocopherol); 776699-Vbcjget E(Gamma Tocopherol)was developed and its performance characteristicsdetermined by [facility]. It has not been cleared or approvedby the Food and Drug Administration. Test(s) 002920-Qiregcy B6was developed a nd its performance characteristicsdetermined by [facility]. It has not been cleared or approvedby the Food and Drug Administration.Test(s) 897699-Xak. B1, Whole Bloodwas developed and its performance characteristicsdetermined by [facility]. It has not been cleared or approvedby the Food and Drug Administration.Test(s) 718193-Dxcxobj E(Alpha Tocopherol); 111402-Pkypxci E(Gamma Tocopherol)was developed and its performance characteristicsdetermined by [facility]. It has not been cleared or approvedby the Food and Drug Administration. Test(s) 909726-Sjickif B6was developed a nd its performance characteristicsdetermined by [facility]. It has not been cleared or approvedby the Food and Drug Administration.Test(s) 134755-Iom. B1, Whole Bloodwas developed and its performance characteristicsdetermined by [facility]. It has not been cleared or approvedby the Food and Drug Administration.Test(s) 685709-Xulpbzf E(Alpha Tocopherol); 240159-Iezkzrq E(Gamma Tocopherol)was developed and its performance characteristicsdetermined by [facility]. It has not been cleared or approvedby the Food and Drug Administration. Test(s) 018486-Jaxbiwr B6was developed a nd its performance characteristicsdetermined by [facility]. It has not been cleared or approvedby the Food and Drug Administration.Test(s) 046841-Fcs. B1, Whole Bloodwas developed and its performance characteristicsdetermined by [facility]. It has not been cleared or approvedby the Food and Drug Administration.Test(s) 926264-Wametyb E(Alpha Tocopherol); 686435-Shcuyru E(Gamma Tocopherol)was developed and its performance characteristicsdetermined by [facility]. It has not been cleared or approvedby the Food and Drug Administration. Name Value Range Interpretation Code Description Data Julianna rce(s) Supporting Document(s) DNA double strand Ab [Units/volume] in Serum <1 [IU]/mL 0-9 [facility] Negat karthik <5 Equivocal 5 - 9 Positive > 9Performed at: - [address] [id number] Director: Audrey Neumann MD, Phone: [phone] ID Date Data Source [id number] 11/25/2019 08:06:00 PM EDT [facility] Test(s) 648326-Btvgovn B6was developed a nd its performance characteristicsdetermined by [facility]. It has not been cleared or approvedby the Food and Drug Administration.Test(s) 013475-Yhs. B1, Whole Bloodwas developed and its performance characteristicsdetermined by [facility]. It has not been cleared or approvedby the Food and Drug Administration.Test(s) 249663-Cmrdbyy E(Alpha Tocopherol); 557126-Gqcwril E(Gamma Tocopherol)was developed and its performance characteristicsdetermined by [facility]. It has not been cleared or approvedby the Food and Drug Administration. Test(s) 465608-Bkrglyy B6was developed a nd its performance characteristicsdetermined by [facility]. It has not been cleared or approvedby the Food and Drug Administration.Test(s) 618024-Vxu. B1, Whole Bloodwas developed and its performance characteristicsdetermined by [facility]. It has not been cleared or approvedby the Food and Drug Administration.Test(s) 982294-Msyihtq E(Alpha Tocopherol); 982842-Qyjtwxz E(Gamma Tocopherol)was developed and its performance characteristicsdetermined by [facility]. It has not been cleared or approvedby the Food and Drug Administration. Test(s) 682914-Wwdrfsu B6was developed a nd its performance characteristicsdetermined by [facility]. It has not been cleared or approvedby the Food and Drug Administration.Test(s) 311918-May. B1, Whole Bloodwas developed and its performance characteristicsdetermined by [facility]. It has not been cleared or approvedby the Food and Drug Administration.Test(s) 638436-Pmddijh E(Alpha Tocopherol); 575619-Nhaoxjh E(Gamma Tocopherol)was developed and its performance characteristicsdetermined by [facility]. It has not been cleared or approvedby the Food and Drug Administration. Test(s) 710455-Eeqglyq B6was developed a nd its performance characteristicsdetermined by [facility]. It has not been cleared or approvedby the Food and Drug Administration.Test(s) 253912-Iur. B1, Whole Bloodwas developed and its performance characteristicsdetermined by [facility]. It has not been cleared or approvedby the Food and Drug Administration.Test(s) 893869-Auqeueo E(Alpha Tocopherol); 728758-Axfpwkz E(Gamma Tocopherol)was developed and its performance characteristicsdetermined by [facility]. It has not been cleared or approvedby the Food and Drug Administration. Test(s) 248975-Kpwznbw B6was developed a nd its performance characteristicsdetermined by [facility]. It has not been cleared or approvedby the Food and Drug Administration.Test(s) 506324-Huv. B1, Whole Bloodwas developed and its performance characteristicsdetermined by [facility]. It has not been cleared or approvedby the Food and Drug Administration.Test(s) 562081-Dkzsusf E(Alpha Tocopherol); 523840-Bnipbbh E(Gamma Tocopherol)was developed and its performance characteristicsdetermined by [facility]. It has not been cleared or approvedby the Food and Drug Administration. Test(s) 407213-Msuyymy B6was developed a nd its performance characteristicsdetermined by [facility]. It has not been cleared or approvedby the Food and Drug Administration.Test(s) 271169-Rjy. B1, Whole Bloodwas developed and its performance characteristicsdetermined by [facility]. It has not been cleared or approvedby the Food and Drug Administration.Test(s) 196303-Eslzksk E(Alpha Tocopherol); 082563-Lolijau E(Gamma Tocopherol)was developed and its performance characteristicsdetermined by [facility]. It has not been cleared or approvedby the Food and Drug Administration. Test(s) 100555-Hryozwi B6was developed a nd its performance characteristicsdetermined by [facility]. It has not been cleared or approvedby the Food and Drug Administration.Test(s) 907276-Mal. B1, Whole Bloodwas developed and its performance characteristicsdetermined by [facility]. It has not been cleared or approvedby the Food and Drug Administration.Test(s) 133605-Tyjqzng E(Alpha Tocopherol); 005125-Ewrarcy E(Gamma Tocopherol)was developed and its performance characteristicsdetermined by [facility]. It has not been cleared or approvedby the Food and Drug Administration. Test(s) 977973-Wbrzsdu B6was developed a nd its performance characteristicsdetermined by [facility]. It has not been cleared or approvedby the Food and Drug Administration.Test(s) 613592-Zii. B1, Whole Bloodwas developed and its performance characteristicsdetermined by [facility]. It has not been cleared or approvedby the Food and Drug Administration.Test(s) 524685-Rigayis E(Alpha Tocopherol); 934620-Orfbsfg E(Gamma Tocopherol)was developed and its performance characteristicsdetermined by [facility]. It has not been cleared or approvedby the Food and Drug Administration. Test(s) 252597-Cbncrjz B6was developed a nd its performance characteristicsdetermined by [facility]. It has not been cleared or approvedby the Food and Drug Administration.Test(s) 162675-Uea. B1, Whole Bloodwas developed and its performance characteristicsdetermined by [facility]. It has not been cleared or approvedby the Food and Drug Administration.Test(s) 184710-Iknxzhs E(Alpha Tocopherol); 581353-Sghjfsh E(Gamma Tocopherol)was developed and its performance characteristicsdetermined by [employer]. It has not been cleared or approvedby the Food and Drug Administration. Name Value Range Interpretation Code Description Data Julianna rce(s) Supporting Document(s) Nuclear Ab [Titer] in Serum by Immunofluorescence Positive . Above high normal [facility] Neg ative <1:80 Borderline 1:80 Positive >1:80 Centriole Ab [Titer] in Serum by Immunofluorescence . [facility] Nuclear Ab pattern.nucleolar [Titer] in Serum . [facility] Nuclear Ab pattern.nuclear membrane pore s [Titer] in Serum by Immunofluorescence . [facility] ital Nuclear Ab pattern.speckled [Titer] in Serum 1:1280 . Ab ove high normal [facility] Midbody Ab [Titer] in Serum by Immunofluorescence . [facility] Centromere Ab [Titer] in Serum by Immunofluorescence . [facility] Nuclear Ab pattern.nuclear dots [Titer] in Serum by Immunofluorescenc e . [facility] PCNA extractable nuclear Ab [Titer] in Serum by Immunofluorescence . [facility] Nuclear Ab Pattern Homogenous [Titer] in Serum . [facility] Mitotic spindle apparatus Ab [Titer] in Serum or Plasma by I mmunofluorescence . [facility] prototype engineer manager Note Comment . [facility] A positive MAXIMUS result may occur in healt hy individuals (lowtiter) or be associated with a variety of diseases. Seeinterpretation chart which is not all inclusive:Pattern Antigen Detected Suggested Disease Association Homogeneous DNA(ds,ss), SLE - High titers Nucleosomes, Histones Drug-induced SLE Speckled Sm, CREDIT AUTHORIZER, SCL-70, SLE,MCTD,PSS (diffuse form), SS-A/SS-B Sjogrens Nucleolar SCL-70, PM-1/SCL High titers Scleroderma, PM/DM Centromere Centromere PSS (limited form) w/Crest syndrome variable Nuclear Dot Sp100,k90-ubxijp Primary Biliary Cirrhosis Nuclear GP210, Primary Biliary CirrhosisMembrane mata A,B,C Performed at: [facility] [address] [id number] Director: Audrey Neumann MD, Phone: [phone] ID Date Data Source [id number] 11/25/2019 08:06:00 PM EDT [facility] Test(s) 011408-Zydcojd B6was developed a nd its performance characteristicsdetermined by [employer]. It has not been cleared or approvedby the Food and Drug Administration.Test(s) 447766-Zdt. B1, Whole Bloodwas developed and its performance characteristicsdetermined by [employer]. It has not been cleared or approvedby the Food and Drug Administration.Test(s) 222383-Cwqckju E(Alpha Tocopherol); 419769-Yzuluey E(Gamma Tocopherol)was developed and its performance characteristicsdetermined by [facility]. It has not been cleared or approvedby the Food and Drug Administration. Test(s) 457130-Zjdlvgz B6was developed a nd its performance characteristicsdetermined by [facility]. It has not been cleared or approvedby the Food and Drug Administration.Test(s) 789236-Yll. B1, Whole Bloodwas developed and its performance characteristicsdetermined by [facility]. It has not been cleared or approvedby the Food and Drug Administration.Test(s) 776841-Yaeftky E(Alpha Tocopherol); 931782-Wicyrbm E(Gamma Tocopherol)was developed and its performance characteristicsdetermined by [facility]. It has not been cleared or approvedby the Food and Drug Administration. Test(s) 776572-Zuizafp B6was developed a nd its performance characteristicsdetermined by [facility]. It has not been cleared or approvedby the Food and Drug Administration.Test(s) 127040-Frj. B1, Whole Bloodwas developed and its performance characteristicsdetermined by [facility]. It has not been cleared or approvedby the Food and Drug Administration.Test(s) 854648-Gdbssab E(Alpha Tocopherol); 086866-Zqwhnue E(Gamma Tocopherol)was developed and its performance characteristicsdetermined by [facility]. It has not been cleared or approvedby the Food and Drug Administration. Test(s) 600053-Gvpkoyd B6was developed a nd its performance characteristicsdetermined by [facility]. It has not been cleared or approvedby the Food and Drug Administration.Test(s) 305719-Orp. B1, Whole Bloodwas developed and its performance characteristicsdetermined by [facility]. It has not been cleared or approvedby the Food and Drug Administration.Test(s) 187245-Avfolcf E(Alpha Tocopherol); 337820-Nlwwafr E(Gamma Tocopherol)was developed and its performance characteristicsdetermined by [facility]. It has not been cleared or approvedby the Food and Drug Administration. Test(s) 995263-Qaucopb B6was developed a nd its performance characteristicsdetermined by [facility]. It has not been cleared or approvedby the Food and Drug Administration.Test(s) 393161-Zfp. B1, Whole Bloodwas developed and its performance characteristicsdetermined by [facility]. It has not been cleared or approvedby the Food and Drug Administration.Test(s) 703847-Xoxpgnr E(Alpha Tocopherol); 053607-Kuctign E(Gamma Tocopherol)was developed and its performance characteristicsdetermined by [facility]. It has not been cleared or approvedby the Food and Drug Administration. Test(s) 430838-Vvettfv B6was developed a nd its performance characteristicsdetermined by [facility]. It has not been cleared or approvedby the Food and Drug Administration.Test(s) 218180-Vtj. B1, Whole Bloodwas developed and its performance characteristicsdetermined by [facility]. It has not been cleared or approvedby the Food and Drug Administration.Test(s) 414883-Whxjcfa E(Alpha Tocopherol); 139116-Trkwaqy E(Gamma Tocopherol)was developed and its performance characteristicsdetermined by [facility]. It has not been cleared or approvedby the Food and Drug Administration. Test(s) 168379-Dqnhiyn B6was developed a nd its performance characteristicsdetermined by [facility]. It has not been cleared or approvedby the Food and Drug Administration.Test(s) 655518-Jtw. B1, Whole Bloodwas developed and its performance characteristicsdetermined by [facility]. It has not been cleared or approvedby the Food and Drug Administration.Test(s) 867987-Tgflmww E(Alpha Tocopherol); 913385-Grhkkdz E(Gamma Tocopherol)was developed and its performance characteristicsdetermined by [facility]. It has not been cleared or approvedby the Food and Drug Administration. Test(s) 665395-Bdykcfd B6was developed a nd its performance characteristicsdetermined by [facility]. It has not been cleared or approvedby the Food and Drug Administration.Test(s) 840145-Ebw. B1, Whole Bloodwas developed and its performance characteristicsdetermined by [facility]. It has not been cleared or approvedby the Food and Drug Administration.Test(s) 256116-Wlbvwen E(Alpha Tocopherol); 503760-Qerxtfy E(Gamma Tocopherol)was developed and its performance characteristicsdetermined by [facility]. It has not been cleared or approvedby the Food and Drug Administration. Test(s) 009281-Nedfvjp B6was developed a nd its performance characteristicsdetermined by [employer]. It has not been cleared or approvedby the Food and Drug Administration.Test(s) 711421-Oyc. B1, Whole Bloodwas developed and its performance characteristicsdetermined by [facility]. It has not been cleared or approvedby the Food and Drug Administration.Test(s) 323637-Xddnvtf E(Alpha Tocopherol); 657581-Onrlrmj E(Gamma Tocopherol)was developed and its performance characteristicsdetermined by [facility]. It has not been cleared or approvedby the Food and Drug Administration. Name Value Range Interpretation Code Description Data Julianna rce(s) Supporting Document(s) Sjogrens syndrome-A extractable nuclear Ab [Units/volume] in Serum >8.0 AI 0.0-0.9 Above high normal [facility] Sjogrens syndrome-B extractable nuclear Ab [Units/volume] in Serum <0.2 AI 0.0-0.9 [facility] ID Date Data Source [id number] 11/21/2019 03:36:00 PM EDT [facility], ) Name Value Range Interpretation Code Description Data Julianna rce(s) Supporting Document(s) Alpha tocopherol [Mass/volume] in Serum or Plasma Laboratory test res ult [facility] ([facility], ) ID Date Data Source [id number] 11/21/2019 03:36:00 PM EDT [facility] ([facility]) Name Value Range Interpretation Code Description Data Julianna rce(s) Supporting Document(s) Neutrophil cytoplasmic Ab.classic [Titer] in Serum by Immunofluorescence Laboratory test result [facility] ([facility], ) Neutrophil cytoplasmic Ab.perinuclear [Titer] in Serum by Immunofluorescence Laboratory test result [facility] ([facility], ) The presence of positive fluorescence ex hibiting P-ANCA or C-ANCA patterns alone is not specific for the diagnosis of Kirk's Granulomatosis (WG) or microscopic polyangiitis. Decisions about treatment should not be based solely on ANCA IFA results. The International ANCA Group Consensus recommends follow up testing of positive sera with both CT- 3 and MPO-ANCA enzyme immunoassays. As m any as 5% serum samples are positive only by EIA. Ref. AM J Clin Pathol 1999;111:507-513. Neutrophil cytoplasmic Ab.perinuclear.at ypical [Titer] in Serum by Immunofluorescence Laboratory test result [facility] ([facility], ) The atypical pANCA pattern has been obse rved in a significant percentage of patients with ulcerative colitis, primary sclerosing cholangitis and autoimmune hepatitis. Performed at: [address] [id number] [employer] Developer: Renetta Aguilera MD, Phone: [phone] ID Date Data Source [id number] 11/21/2019 03:36:00 PM EDT [facility] ([facility], ) Name Value Range Interpretation Code Description Data Julianna rce(s) Supporting Document(s) Alpha tocopherol [Mass/volume] in Serum or Plasma 11.8 mg/L 9.0-29.0 [facility] ([facility], ) Gamma tocopherol [Mass/volume] in Serum or Plasma 3.3 mg/L 0.5-4.9 [facility] ([facility]) Reference intervals for alpha and gamma- tocopherol determined from National Health and Nutrition Examination Survey, 8923-2509. Individuals with alpha-tocopherol levels less than 5.0 mg/L are considered vitamin E deficient. Performed at: [address] [id number] [employer] Developer: Renetta Aguilera MD, Phone: [phone] ID Date Data Source [id number] 11/21/2019 03:36:00 PM EDT [facility] ([facility]) Name Value Range Interpretation Code Description Data Julianna rce(s) Supporting Document(s) Pyridoxine [Mass/volume] in Serum or Plasma 11.6 UCUM 2.0-32.8 [facility] ([facility], ) Performed at: [address] [id number] [employer] Developer: Renetta Aguilera MD, Phone: [phone] Nuclear Ab [Presence] in Serum by Immunofluorescence Laboratory deidre t result [facility] ([facility], ) Thiamine [Mass/volume] in Blood 175.2 UCUM 66.5-200.0 [facility] ([facility]) Performed at: [address] [id number] [employer] Developer: Renetta Aguilera MD, Phone: [phone] Treponema pallidum Ab [Presence] in Serum Laboratory test result [facility] ([facility]) Performed at: [facility] [address] [id number] [employer] Developer: Audrey Neumann MD, Phone: [phone] Performed at: - [facility] [address] [id number] [employer] Developer: Renetta Aguilera MD, Phone: [phone] ID Date Data Source [id number] 11/21/2019 03:36:00 PM EDT [facility] ([facility], ) Name Value Range Interpretation Code Description Data Julianna rce(s) Supporting Document(s) Albumin [Mass/volume] in Serum or Plasma by Electrophoresis 3.4 g/d L 2.9-4.4 [facility] ([facility]) Report Laboratory test result [facility] ([facility]) SEE SCANNED REPORT Alpha 1 globulin [Mass/volume] in Serum or Plasma by Electro phoresis 0.2 g/dL 0.0-0.4 [facility] ([facility]) Alpha 2 globulin [Mass/volume] in Serum or Plasma by Electro phoresis 0.8 g/dL 0.4-1.0 [facility] ([facility], ) Gamma globulin [Mass/volume] in Serum or Plasma by Electroph oresis 1.8 g/dL 0.4-1.8 [facility] [facility] Protein.monoclonal [Mass/volume] in Serum or Plasma by Electrophoresis Laboratory test result [facility] ([facility], ) Beta globulin [Mass/volume] in Serum or Plasma by Electropho resis 1.0 g/dL 0.7-1.3 [facility] ([facility]) Globulin [Mass/volume] in Serum by calculation 3.8 g/dL 2.2-3.9 [facility] ([facility]) Albumin/Globulin [Mass Ratio] in Serum or Plasma 0.9 0.7-1.7 [facility] ([facility]) Protein [Mass/volume] in Serum or Plasma 7.2 g/dL 6.0-8.5 [facility] ([facility]) Laboratory comment [Text] in Report Narrative Laboratory test result [facility] ([facility]) Protein electrophoresis scan will follow via computer, mail, or leadership coach delivery. ID Date Data Source [id number] 11/21/2019 03:36:00 PM EDT [facility] ([facility]) Name Value Range Interpretation Code Description Data Julianna rce(s) Supporting Document(s) Centriole Ab [Titer] in Serum by Immunofluorescence Laboratory test result [facility] ([facility]) No Reportable Result Nuclear Ab pattern.nucleolar [Titer] in Serum Laboratory test result [facility] ([facility]) No Reportable Result Nuclear Ab [Titer] in Serum by Immunofluorescence Laboratory test res ult [facility]) <content>Negative <1:80</content>
<content>Borderline 1:80</content>
<content>Positive >1:80</content>
<content></content> Nuclear Ab pattern.speckled [Titer] in Serum Laboratory test result [facility] ([facility]) Nuclear Ab pattern.nuclear membrane pore s [Titer] in Serum by Immunofluorescence Laboratory test result [facility] ([facility]) No Reportable Result Centromere Ab [Titer] in Serum by Immunofluorescence Laboratory deidre t result [facility] ([facility]) No Reportable Result Midbody Ab [Titer] in Serum by Immunofluorescence Laboratory test res ult [facility] ([facility]) No Reportable Result Nuclear Ab pattern.nuclear dots [Titer] in Serum by Im munofluorescence Laboratory test result [facility] ([facility]) No Reportable Result PCNA extractable nuclear Ab [Titer] in Serum by Immuno fluorescence Laboratory test result [facility] ([facility], ) No Reportable Result Nuclear Ab Pattern Homogenous [Titer] in Serum Laboratory test result [facility] ([facility]) No 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 See interpretation chart which is not all inclusive: Pattern Antigen Detected Suggested Disease Association --------- Homogeneous DNA(ds,ss), SLE - High titers Nucleosomes, Histones Drug-induced SLE --------- Speckled Sm, CREDIT AUTHORIZER, SCL-70, SLE,MCTD,PSS (diffuse form), SS-A/SS-B Sjogrens --------- Nucleolar SCL-70, PM-1/SCL High titers Scleroderma, PM/DM --------- Centromere Centromere PSS (limited form) w/Crest syndrome variable --------- Nuclear Dot Sp100,t24-lskeol Primary Biliary Cirrhosis --------- Nuclear GP210, Primary Biliary Cirrhosis Membrane mata A,B,C --------- Performed at: RN - [facility] [address] [id number] Sql Server Developer: Audrey Neumann MD, Phone: [phone] Mitotic spindle apparatus Ab [Titer] in Serum or Plasm a by Immunofluorescence Laboratory test result [facility] ([facility]) No Reportable Result ID Date Data Source [id number] 11/21/2019 03:36:00 PM EDT [facility] ([facility]) Name Value Range Interpretation Code Description Data Julianna rce(s) Supporting Document(s) Sjogrens syndrome-B extractable nuclear Ab [Units/volu me] in Serum Laboratory test result 0.0-0.9 [facility] ([facility], ) Sjogrens syndrome-A extractable nuclear Ab [Units/volu me] in Serum Laboratory test result 0.0-0.9 [facility] ([facility], ) ID Date Data Source [id number] 11/21/2019 03:36:00 PM EDT [facility] ([facility]) Name Value Range Interpretation Code Description Data Julianna rce(s) Supporting Document(s) DNA double strand Ab [Units/volume] in Serum Laboratory test result 0 -9 [facility] ([facility]) <content>Negative <5</content>
<content>Equivocal 5 - 9</content>
<content>Positive >9</content>
<content>Performed at: RN - [facility]</content>
<content>[address] [place] [id number]</content>
<content>Sql Server Developer: Audrey Neumann MD, Phone: [phone]</content>
<content></content> ID Date Data Source [id number] 11/21/2019 03:36:00 PM EDT [facility] ([facility]) Name Value Range Interpretation Code Description Data Julianna rce(s) Supporting Document(s) Folate [Mass/volume] in Serum or Plasma 14.5 ng/mL [facility] ([facility]) FOLATE INTERPRETATION NORMAL: GREATER THAN 5.38 INDETERMINATE: 3.38 - 5.38 DEFICIENT: LESS THAN 3.37 Thyrotropin [Units/volume] in Serum or Plasma 2.61 u[iU]/mL 0.35-5.50 [facility] ([facility]) Rheumatoid factor [Units/volume] in Serum or Plasma 96.0 [IU]/mL 0.0- 14.0 [facility] ([facility]) Erythrocyte sedimentation rate by 2H Westergren method 20 [facility] 0-3 0 [facility] ([facility]) Cobalamin (Vitamin B12) [Mass/volume] in Serum or Plasma 467 pg/mL 2 11-911 [facility] ([facility]) ID Date Data Source [id number] 11/21/2019 03:36:00 PM EDT [facility] ([facility]) Name Value Range Interpretation Code Description Data Julianna rce(s) Supporting Document(s) Urea nitrogen [Mass/volume] in Serum or Plasma 10 mg/dL 9-23 [facility] ([facility]) Sodium [Moles/volume] in Serum or Plasma 144 mmol/L 132-146 [facility] ([facility]) Chloride [Moles/volume] in Serum or Plasma 109 mmol/L 99-109 [facility] ([facility]) Potassium [Moles/volume] in Serum or Plasma 4.6 mmol/L 3.5-5.5 [facility] ([facility]) Carbon dioxide, total [Moles/volume] in Serum or Plasma 31 mmol/L 20 -31 [facility] ([facility]) Anion gap in Serum or Plasma 9 mmol/L 8-16 [facility] ([facility]) Glucose [Mass/volume] in Serum or Plasma 113 mg/dL 74-106 [facility] ([facility]) Creatinine 0.7 mg/dL 0.5-1.1 [facility] Alanine aminotransferase [Enzymatic acti vity/volume] in Serum or Plasma by With P-5'-P 48 U/L 10-49 [facility] ([facility], ) Glomerular filtration rate/1.73 sq M.pre dicted [Volume Rate/Area] in Serum or Plasma Laboratory test result [facility] Aspartate aminotransferase [Enzymatic ac tivity/volume] in Serum or Plasma by With P-5'-P 58 U/L 0-33 [facility] ([facility], ) Calcium [Mass/volume] in Serum or Plasma 8.9 mg/dL 8.5-10.1 [facility] Alkaline phosphatase [Enzymatic activity/volume] in Serum or Plasma 123 U/L 45-129 [facility] ([facility]) Bilirubin.total [Mass/volume] in Serum or Plasma 0.4 mg/dL 0.3-1.2 [facility] ([facility]) Albumin [Mass/volume] in Serum or Plasma by Bromocresol purple (BCP) dye binding method 3.4 g/dL 3.2-4.8 [facility] ([facility]) Protein [Mass/volume] in Serum or Plasma 7.5 g/dL 5.7-8.2 [facility] ([facility]) ID Date Data Source [id number] 11/21/2019 03:36:00 PM EDT [facility] ([facility]) Name Value Range Interpretation Code Description Data Julianna rce(s) Supporting Document(s) Leukocytes [#/volume] in Blood by Automated count 10.1 10*3/uL 4.45-1 0.71 [facility] ([facility]) Erythrocytes [#/volume] in Blood by Automated count 4.50 10*6/uL 4.20 -5.40 [facility] ([facility]) Hematocrit [Volume Fraction] of Blood by Automated count 42.1 % 3 7-47 [facility] ([facility]) Hemoglobin [Moles/volume] in Blood 14.2 g/dL 10.7-15.4 [facility] ([facility]) Erythrocyte mean corpuscular volume [Ent itic volume] in Cord blood by Automated count 93.6 fL 80-96 [facility] ([facility]) Erythrocyte mean corpuscular hemoglobin [Entitic mass] by Automated count 31.6 pg 27-31 [facility] ([facility]) Erythrocyte mean corpuscular hemoglobin concentration [Mass/volume] in Cord blood 33.7 g/dL 33-37 [facility] ([facility]) Erythrocyte distribution width [Entitic volume] by Automated count 16 % 11-15 [facility] ([facility]) Platelets [#/volume] in Blood by Automated count 303 10*3/uL 130-472 [facility] ([facility]) Platelet mean volume [Entitic volume] in Blood 10.5 fL 9.1-13.1 [facility] ([facility]) Neutrophils [#/volume] in Blood by Automated count 3.2 U 1.7-7.6 [facility] ([facility], ) Neutrophils/100 leukocytes in Blood by Automated count 31.8 % 41- 77 [facility] ([facility], ) Lymphocytes [#/volume] in Blood by Automated count 4.8 U 0.6-4.6 [facility] ([facility], ) Lymphocytes/100 leukocytes in Blood by Automated count 47.7 % 14- 46 [facility] ([facility], ) Monocytes [#/volume] in Blood by Automated count 1.1 U 0.2-1.2 [facility] ([facility], ) Monocytes/100 leukocytes in Blood by Automated count 10.8 % 4-12 [facility] ([facility], ) Eosinophils [#/volume] in Blood by Automated count 0.9 U 0.0-0.5 [facility] ([facility], ) Eosinophils/100 leukocytes in Blood by Automated count 8.6 % 0-7 [facility] ([facility], ) Basophils/100 leukocytes in Blood by Automated count 1.0 % 0.4-1 .3 [facility] ([facility], ) Laboratory test finding (navigational concept) 0 % [facility] ([facility], ) Basophils [#/volume] in Blood by Automated count 0.1 U 0.0-0.2 [facility] ([facility], ) Immature granulocytes [Presence] in Blood by Automated count 0.1 0-2 [facility] ([facility], ) Immature granulocytes [#/volume] in Blood by Automated count 0.0 U 0-0.1 [facility] ([facility], ) Laboratory test finding (navigational concept) 0 U [facility] ([facility], ) Manual Differential panel - Blood Laboratory test result [facility] ([facility], ) ID Date Data Source [id number] 11/11/2019 03:36:00 PM EDT [facility] [address] [place] [address] [phone] NAME SEX PT STATUS ACCOUNT NUMBER [place] MCMANUS REG REF [id number] ORDERING PHYSICIAN LOCATION MEDICAL RECORD NO. Ross Brothers M.D. EKG [id number] ATTENDING PHYSICIAN DATE OF DATE OF EXAM/TIME Keri Church DO 1950 11/11/19699 TYPE / EXAM NM Nuclear Stress Test REASON FOR EXAM R55 SYNCOPE AND COLLAPSE,I10 HTN, DATE OF TEST: 11/11/19 TECHNIQUE: Gated myocardial perfusion SPECT was performed using rest-stress sequence. Technetium 99 sestamibi 10.65 millicuries at rest and 30.4 millicuries at peak exercise were injected. EKG was reported separately. FINDINGS: 1. Normal perfusion of all segment of left ventricular myocardium at rest and with exercise. 2. No evidence of ischemia or infarction noted. 3. Above findings were confirmed with bulls eye spectral analysis. 4. Breast attenuation was noted. 5. Gated wall motion analysis revealed normal left ventricular wall motion, overall ejection fraction of 63%. CONCLUSION: 1. Normal perfusion. 2. No evidence of ischemia or infarction. 3. Normal LV function. 4. Breast attenuation. 5. Continuation of medical therapy. Reported By Roger Parr MD on 11/11/19 1536 Signed By Roger Parr MD on 12/03/19 1056 <<Signature on File>> Date Time CC: Roger Parr M.D.; Keri Church DO Techn: GIOVANY Trans Dt/Tm: 11/11/19 1606 Trans by: LO Prt Dt/Tm: : Total DLP = 0.00 mGy-cm : Total Radiation Dose = 0.0000 mSv Lifetime Dose: 1.9313 mSv Name Value Range Interpretation Code Description Data Julianna rce(s) Supporting Document(s) ID Date Data Source [id number] 11/11/2019 10:36:00 AM EDT [facility] TEST CONSULTATION NAME: KY MCMANUS : 1950 AGE: 69 MR#: [id number] ADMITTING DATE: 11/11/[address]: DISCHARGE DATE: ATTENDING DR: Ross Brothers M.D. ROOM#: [facility] CARDIOLITE STRESS TEST Pretest EKG sinus rhythm, normal axis, right bundle branch block with repolarization changes. Patient exercised on Lexiscan protocol, 0.4 [...] SUGGESTION Pending Cardiolite result dictated separately. CC: Keri Church DO <Electronically signed by Roger Parr MD> Roger Parr MD 12/03/19 1056 Roger Parr M.D. Cosigner: D: RAYNA 11/11/19 1036 T: DELORIS 11/11/19 1056 CC: Roger Parr M.D.; Keri Church DO LAST EDIT: Name Value Range Interpretation Code Description Data Julianna rce(s) Supporting Document(s) ID Date Data Source [id number] 11/04/2019 01:01:00 PM EDT [facility] ([facility]) Name Value Range Interpretation Code Description Data Julianna rce(s) Supporting Document(s) Echocardiogram Laboratory test result [facility] ([facility]) ID Date Data Source [facility] Shoulder, complete 11/04/2019 11:36:25 AM EDT [facility]1 ([facility]) Name Value Range Interpretation Code Description Data Julianna rce(s) Supporting Document(s) e[facility]1 ([facility]) ID Date Data Source [facility] SPINE LS COMPLETE 11/04/2019 11:36:13 AM EDT [facility] ([facility] Name Value Range Interpretation Code Description Data Julianna rce(s) Supporting Document(s) [facility] ([facility]) ID Date Data Source [facility] Knee, complete 11/04/2019 11:36:02 AM EDT [facility]1 ([facility]) Name Value Range Interpretation Code Description Data Julianna rce(s) Supporting Document(s) [facility]1 ([facility]) ID Date Data Source [facility] Hand, complete 11/04/2019 11:35:49 AM EDT [facility] ([facility]) Name Value Range Interpretation Code Description Data Julianna rce(s) Supporting Document(s) [facility] ([facility]) ID Date Data Source [id number] 11/03/2019 02:49:00 PM EDT [facility] ([facility]) Name Value Range Interpretation Code Description Data Julianna rce(s) Supporting Document(s) EKG Laboratory test result [facility] ([facility]) ID Date Data Source [id number] 10/28/2019 01:08:00 PM EDT [facility] [address] [place], [place] [address] [phone] NAME SEX PT STATUS ACCOUNT NUMBER [place] MCMANUS REG REF [id number] ORDERING PHYSICIAN LOCATION MEDICAL RECORD NO. Keri Church DO CT [id number] ATTENDING PHYSICIAN DATE OF DATE OF EXAM/TIME Keri Church DO 1950 10/28/19 / 1259 TYPE / EXAM CT C-Spine without contrast REASON FOR EXAM neck pain and headache after fall on Coumadin COMPARISON: None available. FINDINGS: Scans were obtained from C1 through C7. The patient is remotely post ACDF with vertebral body screws at the C4, C5, and C6 levels. There isstraightening of normal cervical lordosis. No evidence of [...] reconstruction, automated exposure control, as well as adaptivedose shielding. Reported By Pasha Uribe MD on 10/28/19 1308 Signed By Pasha Uribe MD on 10/28/19 1322 Date Time CC: Pasha Uribe MD; Keri Church DO Techn: PELBU Trans Dt/Tm: Trans by: DT Prt Dt/Tm: : Total DLP = 400.00 mGy-cm : Total Radiation Dose = 0.0000 mSv Lifetime Dose: 1.9313 mSv Name Value Range Interpretation Code Description Data Julianna rce(s) Supporting Document(s) ID Date Data Source [id number] 10/28/2019 01:01:00 PM EDT [facility] [address] [place] [address] [phone] NAME SEX PT STATUS ACCOUNT NUMBER [place] MCMANUS REG REF [id number] ORDERING PHYSICIAN LOCATION MEDICAL RECORD NO. Keri Church DO CT [id number] ATTENDING PHYSICIAN DATE OF DATE OF EXAM/TIME Keri Church DO 1950 10/28/191258 TYPE / EXAM CT Head without contrast REASON FOR EXAM 9.5/10 GARCIA s/p fall on Coumadin; r/o bleed, patholo COMPARISON: None available. TECHNIQUE: CT images of the head were acquired from the skull base to the vertex using 3 mm collimation. FINDINGS: There is no acute intracranial hemorrhage. There is no large acute cortical infarction. Please notethat if acute infarction is suspected, MRI is the test of choice. Midline coarse calcification is seen at the level of the daniel (3:13-14) and is likely related to cavernoma. Overall, this cavernoma measures approximately 1.1 cm. There is no mass effect or mid- line shift. Cerebral atrophy is mild . The [...] reconstruction, automated exposure control, as well as adaptivedose shielding. Reported By Pasha Uribe MD on 10/28/19 1301 Signed By Pasha Uribe MD on 10/28/19 1307 Date Time CC: Pasha Uribe MD; Keri Church DO Techn: IMELDA Trans Dt/Tm: Trans by: DT Prt Dt/Tm: : Total DLP = 623.00 mGy-cm : Total Radiation Dose = 1.9313 mSv Lifetime Dose: 1.9313 mSv Name Value Range Interpretation Code Description Data Julianna rce(s) Supporting Document(s) ID Date Data Source [id number] 10/28/2019 11:01:00 AM EDT [facility] Patient Name: KY MCMANUS : 1950 Sex: F Pt Unit #: [id number] Location:[facility] Provider: Visit Date/Time: 10/28/19 Primary Insurance: MEDICARE [employer] Secondary Insurance: FOR LIFE Intake Vital Signs 10/28/19 11:01 Current Height 4 ft 10 in Current Weight 154 lb 8 oz Weight Measurement Method Standing Scale BMI 32.3 BP 138/80 Blood Pressure Location Lt brachial Position Sitting Respiration 18 Pulse 48 L Temp 98.2 F Temp Source Oral Pulse Oximetry (%) 94 L Oxygen Delivery Method room air Intake Visit Reasons: Syncope Nurse Note: Has had a Headache since Sun.Syncopal episode on Sun.Went to ER Is patient in pain?: Yes (Headache) Pain scale (1-10): 10 Allergies codeine [CODEINE] Allergy (Unknown, Verified 04/14/19 10:01) diazepam [From VALIUM] Allergy (Unknown, Verified 04/14/19 10:01) flurazepam [From DALMANE] Allergy (Unknown, Verified 04/14/19 10:01) levofloxacin [From LEVAQUIN] Allergy (Unknown, Verified 04/14/19 10:01) meperidine [From DEMEROL] Allergy (Unknown, Verified 04/14/19 10:01) nitrofurantoin [From MACROBID] Allergy (Unknown, Verified 04/14/19 10:01) rabeprazole [From ACIPHEX] Allergy (Unknown, Verified 04/14/19 10:01) Sulfa (Sulfonamide Antibiotics) [SULFA (SULFONAMIDE ANTIBIOTICS)] Allergy (Unknown, Verified 04/14/19 10:01) HIV Testing Offer - ages 13-64 Requirement for HIV testing offer been met?: Not in age range Coronavirus Screening Screening Risk:travel to high risk area;contact w/ high risk person: No Has patient experienced coronavirus symptoms: No PFSH Medical History (Updated 06/24/19 @ 12:01 by Keri Church DO) Arthritis (Acute) Environmental allergies (Acute) Essential (primary) hypertension (Chronic) GERD (gastroesophageal reflux disease) (Chronic) Hearing deficit (Acute) History of CVA (cerebrovascular accident) (Chronic) History of IBS (Chronic) Liver disease (Acute) Osteoporosis (Chronic) Prediabetes (Acute) Recurrent sinusitis (Chronic) Urinary incontinence (Acute) Surgical History H/O section (Acute) History of extraction of renal calculus (Acute) History of hysterectomy (Acute) History of nasal surgery (Acute) History of splenectomy (Acute) History of throat surgery (Acute) Social History (Updated 10/28/19 @ 11:03 by Theresa Middleton) Does the Patient have a Healthcare Proxy: Yes (TING JUAN) Does Patient have a DNR?: Yes Does Patient have a Living Will?: Yes highest education level completed: Associate degree: occupational, technical, vocational program Hx Recent Travel (where): No well-balanced diet: daily high-fat food intake: 0-1 times daily daily servings fruits/ve-4 daily servings of milk/calcium: 5 or more eating out: 1-3 times/week reads food labels: usually or always alcohol intake: current alcohol intake frequency: 0-2 drinks per day substance use type: does not use seatbelt 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 Seen by me 10/21/19 and BP 160/98, 180/95. Lisinopril 10mg was increased to 20mg daily. In ER note it stated that she was always thirsty. Glucose was 98. Last A1c 03/18/19 was 6.3. WBC 14.4 with Garret 57.6%, Ly 27.0%. No UA was taken. She states she has a headache that won't go away. She states 9.5/10 headache. She is tired and just wants to close her eyes. She has Sjogren's Disesase which is why she has dry mouth she states. She drinks 3 or 4 32oz turner per day. She sees [facility] in 6 days. No LOC. She has had GARCIA since being in ER. She lost urine. She claims she did not change Lisinopril dose the day she collapsed. Review of Systems Const Denies weight gain and Denies weight loss Card Denies chest pain, Denies irregular heart rhythm and Denies dyspnea on exertion Resp Denies cough and Denies dyspnea on exertion Exam Const General: cooperative, healthy appearing and comfortable HENGA Face and sinus: sinuses nontender Neck Thyroid: abnormal thyroid Carotids: no bruits Lymphatic: lymphadenopathy noted Chest Chest: normal inspection of the chest Resp Auscultation: clear to auscultation bilaterally, no rales, no rhonchi and no wheezes Cardio Rate: bradycardic (HR 48) Rhythm: regular rhythm Heart Sounds: S1 normal, S2 normal, no gallops, no murmurs and no rubs Neuro General: patient alert, patient awake, patient oriented x3, gait normal and CN's II-XI intact bilaterally Extrem General: normal to inspection and no edema Assessment Plan Assessment Plan (1) Essential (primary) hypertension: Status: Chronic Code(s): I10 - Essential (primary) hypertension SNOMED Code(s): 58462043 Category: Medical Plan - Keri Church, DO: Pre-syncope with headache on Coumadin. CT head without and with contrast today, CT neck today. UA essentially without LE, N. Collapse with HTN which is moderately high. She has Cardiology appt in 6 days. HR 48. She could have chronological incompetence requiring pacemaker. She will likely need non-walking Nuclear StresTest. F/u 4 weeks. HTN not really controlled well. F/u 4 weeks. (2) Pre-syncope: Code(s): R55 - Syncope and collapse (3) Collapse: Code(s): R55 - Syncope and collapse (4) Bradycardia: Code(s): R00.1 - Bradycardia, unspecified (5) Headache: Code(s): R51 - Headache Orders Instructions: DASH Eating Plan (GE N) Hypertension (GEN) Electronically Signed By: <Electronically signed by Keri Church DO> Date/Time Signed: 10/28/19 1207 Name Value Range Interpretation Code Description Data Julianna rce(s) Supporting Document(s) ID Date Data Source [id number] 10/22/2019 04:46:00 PM EDT [facility] ED Physician Documentation NAME: KY MCMANUS : 1950 AGE: 69 MR#: [id number] SERVICE DATE: 10/22/[address]: Apollo Valente MD PRIMARY CARE DR: Keri Church DO ROOM#: HPI (Adult, General) General Chief Complaint: Multi system (Adult) Stated Complaint: WEAKNESS, HIGH BLOOD PRESSURE Resident LT, travel outisde home, exposure to hot tubs:: No Time Seen by Provider: 10/22/19 15:42 Source: patient Exam Limitations: no limitations History of Present Illness Narrative: 69 yo woman with h/o HTN, SLE, RA, on immunosuppressive therapy, brought to the ER from home when she collapsed after a long walk this afternoon. Her daughter noted the patient was extremely fatigued with elevated blood pressure. She notes that shedrinks large amounts of water daily due to being thirsty all the time but says she went on an especially long walk today. She denies any focal weakness or numbness. Allergies/Home Meds Allergies Allergy/AdvReac Type Severity Reaction Status Date / Time codeine [CODEINE] Allergy Unknown Verified 04/14/19 10:01 diazepam [From VALIUM] Allergy Unknown Verified 04/14/19 10:01 flurazepam [From DALMANE] Allergy Unknown Verified 04/14/19 10:01 levofloxacin [From LEVAQUIN] Allergy Unknown Verified 04/14/19 10:01 meperidine [From DEMEROL] Allergy Unknown Verified 04/14/19 10:01 nitrofurantoin Allergy Unknown Verified 04/14/19 10:01 [From MACROBID] rabeprazole [From ACIPHEX] Allergy Unknown Verified 04/14/19 10:01 Sulfa (Sulfonamide Allergy Unknown Verified 04/14/19 10:01 Antibiotics) [SULFA (SULFONAMIDE ANTIBIOTICS)] Home Medications Medication Instructions Recorded Confirmed Last Taken Type cyclosporine 0.05 % eye drops in a 1 drops OU Q12H #60 each 01/10/19 10/21/19 Unknown Rx dropperette aspirin 81 mg tablet,delayed 81 mg PO QDAY 02/18/19 10/21/19 Unknown History release ferrous gluconate 324 mg (37.5 mg 324 mg PO QDAY 02/18/19 10/21/19 Unknown History iron) tablet warfarin 1 mg tablet 1 mg PO QDAY 02/21/19 10/22/19 10/21/19 History gabapentin 100 mg capsule 100 mg PO BID #180 cap 02/27/19 10/21/19 Unknown Rx acetaminophen 325 mg tablet 350 - 650 mg PO HS #180 tab 03/10/19 10/21/19 Unknown Rx docusate sodium 100 mg capsule 100 mg PO QDAY #90 cap 04/21/19 10/21/19 Unknown Rx duloxetine 30 mg capsule,delayed 30 mg PO QDAY #90 cap 04/21/19 10/21/19 Unknown Rx release magnesium oxide 400 mg PO QDAY #90 tab 04/21/19 10/21/19 Unknown Rx multivitamin 1 tab PO QDAY #90 tab 04/21/19 10/21/19 Unknown Rx rifaximin 550 mg tablet 550 mg PO DAILY #90 tab 04/21/19 10/21/19 Unknown Rx warfarin 4 mg tablet 4 mg PO DAILY #90 tab 05/06/19 10/22/19 10/21/19 Rx gabapentin 400 mg capsule 400 mg PO QDAY #90 cap 07/10/19 10/21/19 Unknown Rx calcium carbonate 500 mg (1,250 1 tab PO QDAY #90 tab 07/15/19 10/21/19 Unknown Rx mg)-vitamin D3 200 unit tablet fexofenadine 180 mg tablet 180 mg PO Q24H #90 tab 08/12/19 10/21/19 Unknown Rx hydroxychloroquine 200 mg tablet 200 mg PO BID #180 tab 08/12/19 10/21/19 Unknown Rx potassium citrate 5 mEq (540 mg) 5 meq PO QDAY #90 tab 08/12/19 10/21/19 Unknown Rx tablet,extended release nadolol 20 mg tablet 20 mg PO QDAY #90 tab 09/04/19 10/21/19 Unknown Rx ascorbate calcium (vitamin C) 500 500 mg PO QDAY #90 tab 09/25/19 10/21/19 Unknown Rx mg tablet lisinopril 20 mg tablet 20 mg PO QDAY #90 tab 10/21/19 10/21/19 Unknown Rx pantoprazole 40 mg tablet,delayed 40 mg PO QDAY #90 tab 10/21/19 10/21/19 Unknown Rx release PMH (from Triage) Patient Medical History PMH Reviewed/Updated as Needed: Yes PMH/PSH from Triage: [facility] by Keri Church DO) Arthritis (Acute Medical) M19.90 Environmental allergies (Acute Medical) Z91.09 Essential (primary) hypertension (Chronic Medical) I10 GERD (gastroesophageal reflux disease) (Chronic Medical) K21.9 Hearing deficit (Acute Medical) H91.90 History of CVA (cerebrovascular accident) (Chronic Medical) Z86.73 History of IBS (Chronic Medical) Z87.19 Liver disease (Acute Medical) K76.9 Osteoporosis (Chronic Medical) M81.0 Prediabetes (Acute Medical) R73.03 Recurrent sinusitis (Chronic Medical) J32.9 Urinary incontinence (Acute Medical) R32 Surgical History (Updated 03/06/19 @ 15:10 by Theresa Middleton) H/O section (Acute Surgical) Z98.891 History of extraction of renal calculus (Acute Surgical) Z98.890, Z87.442 History of hysterectomy (Acute Surgical) Z90.710 History of nasal surgery (Acute Surgical) Z98.890 History of splenectomy (Acute Surgical) Z90.81 History of throat surgery (Acute Surgical) Z98.890 Female History LMP:: Menopause Hx Drug Resistant Infections Hx MRSA: (Methicillin-resistant Staphylococcus aureus): No Hx VRE (Vancomycin-resistant enterococci): No Hx C.Diff: No Hx CRKP: No Hx Other Resistant Infection?: No Isolation: Standard precautions Hx Recent Travel Out of the country within 10 days (where): No Hx Fever: No Hx Fever with a rash?: No Nurse screening for coronavirus: Recent Travel outside the country (where) Coronavirus risk:travel to [facility];contact w/ high risk person In the last 14 days before symptom onset, does the patient have a history of travel from [facility]; or close contact with a person who is under investigation for while that person was ill; or in the last 14 days close contact with an laboratory- confirmed ill patient? Has patient experienced No coronavirus symptoms Social History Does patient have suicidal/homicidal thoughts or ideation?: No Are you in a relationship with/Does anyone hit you, yell/swear at you, steal from you?: No Substance Use Smoking Status: Former smoker Tobacco Use Hx Chewing Tobacco Use: No Vaccination History Hx/Date of Tetanus, Diphtheria Vaccination: Yes Hx/Date of Influenza Vaccination: Yes Hx/Date of Pneumococcal Vaccination: Yes ROS Review of Systems Constitutional: Denies fever Eyes: Denies eye discharge/drng ENT: Denies nasal congestion and throat pain Respiratory: Denies cough and SOB Cardiovascular: Denies chest pain and palpitations Gastrointestinal: Denies nausea, vomiting, abdominal pain and diarrhea Genitourinary-Female: Denies dysuria and frequency Musculoskeletal: Denies muscle pain and joint pain Skin/Breasts: Denies rash Neurologic: Reports headache; Denies weakness, numbness, change in speech and loss of consciousness Endocrine: Denies Loss of appetite Hematological/Lymphatic: Reports easy bleeding and easy bruising Allergic/Immunologic: Denies rash Physical Exam General Physical Exam Narrative: obese woman, awake and alert, NAD noted Limitations: no limitations General appearance: alert and in no apparent distress Head Head exam: Present atraumatic and normocephalic Eye Eye exam: Present normal apperance; Absent scleral icterus and conjunctival injection ENT ENT exam: Present mucous membranes dry; Absent normal exam Neck Neck exam: Present normal inspection and full ROM Respiratory Respiratory exam: Present normal lung sounds bilaterally; Absent respiratory distress Cardiovascular Cardiovascular Exam: Present regular rate and normal rhythm GI/Abdominal GI/Abdominal exam: Present Abd soft, bowel sounds present all quadrents; Absent tenderness Rectal Rectal exam: Present deferred Extremities Exam Extremities exam: Present normal inspection and full ROM; Absent tenderness Back Exam Back exam: Present full ROM Neurological Exam Neurological exam: Present alert, oriented X3 and CN II-XII intact; Absent motor sensory deficit Psychiatric Psychiatric exam: Present normal affect and normal mood Skin Skin exam: Present warm, dry, intact and normal color Vital Signs Vital Signs: Vital Signs 10/22/19 15:48 10/22/19 18:32 Temperature 96.9 F L Pulse Rate 60 Respiratory Rate 16 Blood Pressure 202/96 165/87 O2 Sat by Pulse Oximetry 99 MDM (comprehensive) Lab Data Labs: 10/22/19 16:45 10/22/19 16:45 Laboratory Results Last 24 hours 10/22/19 16:45: WBC 14.4 H, RBC 5.04, Hgb 15.9 H, Hct 47.4 H, MCV 94.0, MCH 31.5 H, MCHC 33.5, RDW 16 H, Plt Count 280, MPV 10.7, Immature Gran % (Auto) 0.3, Neut % (Auto) 57.6, Lymph % (Auto) 27.0, [place] % (Auto) 8.4, Eos % (Auto) 5.9, Baso % (Auto) 0.8, Lymph # (Auto) 3.9, Abs Immat Gran (auto) 0.0, Add Manual Diff No, Absolute Neutrophils 8.3 H, Monocytes # 1.2, Absolute Eosinophils 0.8 H, Absolute Basophils 0.1 10/22/19 16:45: PT 25.2 H, INR 2.6 H, PTT (Vicky) 35.7 H 10/22/19 16:45: Sodium 145, Potassium 4.7, Chloride 109, Carbon Dioxide 30, Anion Gap 11, BUN 9, Creatinine 0.7, GFR Calculation Greater than 60, Glucose 98, Calcium 9.5, Total Bilirubin 0.5, AST 71 H, ALT 54 H, Alkaline Phosphatase 143 H, Serum Total Protein 8.2, Albumin 3.6 Medical Decision Making Free Text/Narative:: The patient was evaluated for weakness, fatigue and elevated BP. The exam was significant for dry oral mucosa, elevated blood pressure, normal neurologic exam and normal lung andcardiac exams. Labs were significant for elevated Na, mildly elevated WBC without any excess polys,and abnormal LFT's. The patient has a h/o splenectomy and fatty liver to account for the WBC's and LFT's. She was treated with Clonidine and IVF with improvement in the BP. Plan Plan Plan: d/c home Plan of care: Plan of care discussed with patient and or family, Patient encouraged to ask questionsabout plan and Patient agrees with plan of care Discharge Plan Admission/Discharge Dx Primary DC Diagnosis: Hypertensive urgency; hypernatremia ED Provider: Apollo Valente ED Status: Physician Time Seen by Provider: 10/22/19 15:42 Triaged At: 10/22/19 15:22 Condition Condition: Improved Discharge Detail Disposition: Home, Self-Care Med Rec New Prescriptions: No Action aspirin [Adult Aspirin Regimen] 81 mg tablet,delayed release (DR/EC) 81 mg PO QDAY RF: 0 ferrous gluconate 324 mg (37.5 mg iron) tablet 324 mg PO QDAY RF: 0 lisinopril 20 mg tablet 20 mg PO QDAY Qty: 90 RF: 3 pantoprazole [Protonix] 40 mg tablet,delayed release (DR/EC) 40 mg PO QDAY Qty: 90 RF: 3 Restasis 0.05 % dropperette 1 drops OU Q12H Qty: 60 RF: 1 warfarin [Coumadin] 1 mg tablet 1 mg PO QDAY RF: 0 gabapentin 100 mg capsule 100 mg PO BID Qty: 180 RF: 3 acetaminophen [Tylenol] 325 mg tablet 350 - 650 mg PO HS Qty: 180 RF: 3 duloxetine [Cymbalta] 30 mg capsule,delayed release(DR/EC) 30 mg PO QDAY Qty: 90 RF: 4 rifaximin 550 mg tablet 550 mg PO DAILY Qty: 90 RF: 4 magnesium oxide 400 mg magnesium tablet 400 mg PO QDAY Qty: 90 RF: 3 docusate sodium [Colace] 100 mg capsule 100 mg PO QDAY Qty: 90 RF: 4 multivitamin Tablet 1 tab PO QDAY Qty: 90 RF: 4 warfar in [Coumadin] 4 mg tablet 4 mg PO DAILY Qty: 90 RF: 3 gabapentin 400 mg capsule 400 mg PO QDAY Qty: 90 RF: 3 calcium carbonate-vitamin D3 500 mg(1,250mg) -200 unit tablet 1 tab PO QDAY Qty: 90 RF: 3 hydroxychloroquine 200 mg tablet 200 mg PO BID Qty: 180 RF: 3 fexofenadine 180 mg tablet 180 mg PO Q24H Qty: 90 RF: 3 potassium citrate 5 mEq (540 mg) tablet extended release 5 meq PO QDAY Qty: 90 RF: 3 nadolol 20 mg tablet 20 mg PO QDAY Qty: 90 RF: 3 ascorbate calcium (vitamin C) 500 mg tablet 500 mg PO QDAY Qty: 90 RF: 3 Medications Medication reconciliation performed by provider at discharge: Yes Follow Up Care/Instructions Diet/Activity/Wound Care..: continue with increased fluids at home, primary care follow-up, return for increased symptoms *Discharge Patient* Discharge Orders: Discharge Order (Routine); Ordered 10/22/19 Ordered By: Aplolo Valente Interventions Interventions: ED General Adult Last Done: 10/22/19 15:50 Report Signers: <Electronically signed by Apollo Valente MD> Apollo Valente MD 10/22/19 1849 Apollo Valente MD SIGNATURE DA Report Cosigners: D: VEL 10/22/19 1646 T: VEL 10/22/191645 CC: Keri Church DO Name Value Range Interpretation Code Description Data Julianna rce(s) Supporting Document(s) ID Date Data Source [id number] 10/22/2019 04:49:00 PM EDT [facility] Name Value Range Interpretation Code Description Data Julianna rce(s) Supporting Document(s) Leukocytes [#/volume] in Blood by Automated count 14.4 10*3/uL 4.45-10.71 Above high normal [facility] Erythrocytes [#/volume] in Blood by Automated count 5.04 10*6/uL 4.20 -5.40 N [facility] Hemoglobin [Moles/volume] in Blood 15.9 g/dL 10.7-15.4 Above high n ormal [facility] Hematocrit [Volume Fraction] of Blood by Automated count 47.4 % 37-47 Above high normal [facility] Erythrocyte mean corpuscular volume [Ent itic volume] in Cord blood by Automated count 94.0 fL 80-96 N [facility] ital Erythrocyte mean corpuscular hemoglobin [Entitic mass] by Automated count 31.5 pg 27-31 Above high normal [facility] spital Erythrocyte mean corpuscular hemoglobin concentration [Mass/volume] in Cord blood 33.5 g/dL 33-37 N [facility] ital Erythrocyte distribution width [Entitic volume] by Automated cou nt 16 % 11-15 Above high normal [facility] Platelets [#/volume] in Blood by Automated count 280 10*3/uL 130-472 N [facility] Platelet mean volume [Entitic volume] in Blood 10.7 fL 9.1-13.1 N [facility] Neutrophils/100 leukocytes in Blood by Automated count 57.6 % 41- 77 N [facility] Neutrophils [#/volume] in Blood by Automated count 8.3 U 1.7-7.6 Above high normal [facility] Lymphocytes/100 leukocytes in Blood by Automated count 27.0 % 14- 46 N [facility] Lymphocytes [#/volume] in Blood by Automated count 3.9 U 0.6-4.6 N [facility] Monocytes/100 leukocytes in Blood by Automated count 8.4 % 4-12 N [facility] Monocytes [#/volume] in Blood by Automated count 1.2 U 0.2-1.2 N [facility] Eosinophils/100 leukocytes in Blood by Automated count 5.9 % 0-7 N [facility] Eosinophils [#/volume] in Blood by Automated count 0.8 U 0.0-0.5 Above high normal [facility] Basophils/100 leukocytes in Blood by Automated count 0.8 % 0.4-1 .3 N [facility] Basophils [#/volume] in Blood by Automated count 0.1 U 0.0-0.2 N [facility] NUCLEATED RED BLOOD CELL 0 % [facility] NUCLEATED RED BLOOD CELL# 0 U [facility] Immature granulocytes [Presence] in Blood by Automated count 0-2 N [facility] Immature granulocytes [#/volume] in Blood by Automated count 0.0 U 0-0.1 N [facility] Manual Differential panel - Blood NO [facility] ID Date Data Source [id number] 10/22/2019 05:21:00 PM EDT [facility] Name Value Range Interpretation Code Description Data Julianna rce(s) Supporting Document(s) Prothrombin Time (Patient) 25.2 s 9.6-12.3 Above high normal [facility] INR 2.6 0.9-1.1 Above high normal [facility] THE INR IS OPERATIONALLY DEFINED FOR ALEXIS SH PLASMA FROMPATIENTS STABILIZED ON ORAL ANTICOAGULANTS.ROUTINE ANTICOAGULANT THERAPY 2.0-3.0RECURRENT SYSTEMIC EMBOLISM/HEART VALVE REPLACEMENT 2.5-3.5 aPTT.lupus sensitive (LA screen) 35.7 s 22.7-31.6 Above high nor mal [facility] ID Date Data Source [id number] 10/22/2019 05:35:00 PM EDT [facility] Name Value Range Interpretation Code Description Data Julianna rce(s) Supporting Document(s) Urea nitrogen [Mass/volume] in Serum or Plasma 9 mg/dL 9-23 N [facility] Sodium [Moles/volume] in Serum or Plasma 145 mmol/L 132-146 [facility] Potassium [Moles/volume] in Serum or Plasma 4.7 mmol/L 3.5-5.5 [facility] Chloride [Moles/volume] in Serum or Plasma 109 mmol/L 99-109 [facility] Carbon dioxide, total [Moles/volume] in Serum or Plasma 30 mmol/L 20 -31 N [facility] Anion gap in Serum or Plasma 11 mmol/L 8-16 [facility] Glucose [Mass/volume] in Serum or Plasma 98 mg/dL 74-106 N [facility] Creatinine 0.7 mg/dL 0.5-1.1 [facility] Glomerular filtration rate/1.73 sq M.pre dicted [Volume Rate/Area] in Serum or Plasma Greater Than 60 ABOVE 60 [facility] Alanine aminotransferase [Enzymatic acti vity/volume] in Serum or Plasma by With P-5'-P 54 U/L 10-[address] [facility] Aspartate aminotransferase [Enzymatic ac tivity/volume] in Serum or Plasma by With P-5'-P 71 U/L 0-33 Above high normal [facility] Alkaline phosphatase [Enzymatic activity/volume] in Serum or Plasma 143 U/L 45-129 Above high normal [facility] Calcium [Mass/volume] in Serum or Plasma 9.5 mg/dL 8.5-10.1 N [facility] Bilirubin.total [Mass/volume] in Serum or Plasma 0.5 mg/dL 0.3-1.2 N [facility] Albumin [Mass/volume] in Serum or Plasma by Bromocresol purple (BCP) dye binding method 3.6 g/dL 3.2-4.8 N [facility] ital Protein [Mass/volume] in Serum or Plasma 8.2 g/dL 5.7-8.2 N [facility] ID Date Data Source [id number] 10/21/2019 01:38:00 PM EDT [facility] Patient Name: [place] MCMANUS : 1950 Sex: F Pt Unit #: [id number] Location:[facility] Provider: Visit Date/Time: 10/21/19 Primary Insurance: MEDICARE [employer] Secondary Insurance: [employer] Intake Vital Signs 10/21/19 13:38 Current Height 4 ft 10 in Current Weight 160 lb 6 oz Weight Measurement Method Standing Scale BMI 33.5 Respiration 18 Pulse 52 L Pulse Source Pulse Oximeter Temp 97.5 F L Temp Source Oral Pulse Oximetry (%) 96 Oxygen Delivery Method room air Intake Visit Reasons: Abdominal pain Nurse Note: ABD pain Accompanied by: Daughter Is patient in pain?: Yes (Lower back) Pain scale (1-10): 5 Allergies codeine [CODEINE] Allergy (Unknown, Verified 04/14/19 10:01) diazepam [From VALIUM] Allergy (Unknown, Verified 04/14/19 10:01) flurazepam [From DALMANE] Allergy (Unknown, Verified 04/14/19 10:01) levofloxacin [From LEVAQUIN] Allergy (Unknown, Verified 04/14/19 10:01) meperidine [From DEMEROL] Allergy (Unknown, Verified 04/14/19 10:01) nitrofurantoin [From MACROBID] Allergy (Unknown, Verified 04/14/19 10:01) rabeprazole [From ACIPHEX] Allergy (Unknown, Verified 04/14/19 10:01) Sulfa (Sulfonamide Antibiotics) [SULFA (SULFONAMIDE ANTIBIOTICS)] Allergy (Unknown, Verified 04/14/19 10:01) Medications acetaminophen (Tylenol) 350 - 650 mg (1.0769 - 2 x 325 mg) PO HS ascorbate calcium (vitamin C) 500 mg PO QDAY aspirin (Adult Aspirin Regimen) 81 mg PO QDAY calcium carbonate-vitamin D3 500 mg(1,250mg) -200 unit 1 tab PO QDAY cyclosporine 0.05% (Restasis) 1 drop OU Q12H dexlansoprazole 60 mg PO QDAY docusate sodium (Colace) 100 mg PO QDAY duloxetine (Cymbalta) 30 mg PO QDAY ferrous gluconate 324 mg PO QDAY fexofenadine 180 mg PO Q24H gabapentin 100 mg PO BID gabapentin 400 mg PO QDAY hydroxychloroquine 200 mg PO BID lisinopril 10 mg PO QDAY magnesium oxide 400 mg PO QDAY multivitamin 1 tab PO QDAY nadolol 20 mg PO QDAY potassium citrate ER 5 mEq PO QDAY rifaximin 550 mg PO DAILY warfarin (Coumadin) 1 mg See Protocol PO QDAY warfarin (Coumadin) 4 mg See Protocol PO DAILY warfarin (Coumadin) 3 mg See Protocol PO QDAY HIV Testing Offer - ages 13-64 Requirement for HIV testing offer been met?: Not in age range Coronavirus Screening Screening Risk:travel to high risk area;contact w/ high risk person: No Has patient experienced coronavirus symptoms: No PFSH Medical History (Updated 06/24/19 @ 12:01 by Keri Church DO) Arthritis (Acute) Environmental allergies (Acute) Essential (primary) hypertension (Chronic) GERD (gastroesophageal reflux disease) (Chronic) Hearing deficit (Acute) History of CVA (cerebrovascular accident) (Chronic) History of IBS (Chronic) Liver disease (Acute) Osteoporosis (Chronic) Prediabetes (Acute) Recurrent sinusitis (Chronic) Urinary incontinence (Acute) Surgical History H/O section (Acute) History of extraction of renal calculus (Acute) History of hysterectomy (Acute) History of nasal surgery (Acute) History of splenectomy (Acute) History of throat surgery (Acute) Social History (Updated 10/21/19 @ 13:41 by Theresa Middleton) Does the Patient have a Healthcare Proxy: Yes (TING JUAN) Does Patient have a DNR?: Yes Does Patient have a Living Will?: Yes highest education level completed: Associate degree: occupational, technical, vocational program Hx Recent Travel (where): No well-balanced diet: daily high-fat food intake: 0-1 times daily daily servings fruits/ve-4 daily servings of milk/calcium: 5 or more eating out: 1-3 times/week reads food labels: usually or always alcohol intake: current alcohol intake frequency: 0-2 drinks per day substance use type: does not use seatbelt 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 Last seen 06/24/19. Last labs 04/14/19. Seen by Rheumatology 09/05/19. She states she always has abdominal pains. Her mid abdominal incision hurts. She just started exercises. She is going to a Physical Therapist. She started Sep 25. She feels good about it. She goes once a week. She does exercises at home 5 times a day. She states her reflux is bad. Review of Systems Const Denies weight gain and Denies weight loss Card Denies chest pain, Denies irregular heart rhythm and Denies dyspnea on exertion Resp Denies cough and Denies dyspnea on exertion Exam Const General: cooperative, healthy appearing and comfortable Neck Thyroid: abnormal thyroid Carotids: no bruits Lymphatic: lymphadenopathy noted Chest Chest: normal inspection of the chest Resp Auscultation: clear to auscultation bilaterally, no rales, no rhonchi and no wheezes Cardio Rhythm: regular rhythm Heart Sounds: S1 normal, S2 normal, no gallops, no murmurs and no rubs GI Palpation: soft and nontender Extrem General: normal to inspection and no edema Assessment Plan Assessment Plan (1) Abdominal pain: Code(s): R10.9 - Unspecified abdominal pain Plan - Keri Church DO: HTN not controlled at 160/98, 180/95. Increase Lisinopril from 10mg to 20mg daily. F/u 2 moonths with BP's from home. GERD. Discontinue Dexilant and start Prontonix 40mg daily. (2) GERD (gastroesophageal reflux disease): Status: Chronic Code(s): K21.9 - Gastro-esophageal reflux disease without esophagitis SNOMED Code(s): 367004258 Category: Medical (3) Essential (primary) hypertension: Status: Chronic Code(s): I10 - Essential (primary) hypertension SNOMED Code(s): 60251236 Category: Medical Orders Instructions: DASH Eating Plan (GEN) Hypertension (GEN) Joy ctronically Signed By: <Electronically signed by Keri Church DO> Date/Time Signed: 10/23/19 1234 Name Value Range Interpretation Code Description Data Julianna rce(s) Supporting Document(s) ID Date Data Source QUANTIFERON TB GOLD TEST 09/10/2019 11:15:50 AM EST eCW1 ([facility]) Name Value Range Interpretation Code Description Data Julianna rce(s) Supporting Document(s) eCW1 ([facility]) ID Date Data Source HEPATITIS B CORE ANTIBODY IGG 09/10/2019 11:15:50 AM EST [facility]CW [facility] Name Value Range Interpretation Code Description Data Julianna rce(s) Supporting Document(s) Negative eCW1 ([facility]) ID Date Data Source ANTI JENNY EXTRACTABLE NUCLEAR A 09/10/2019 11:15:50 AM EST eC W1 ([facility]) Name Value Range Interpretation Code Description Data Julianna rce(s) Supporting Document(s) < 0.2 eCW1 ([facility]) 0.3 eCW1 ([facility]) ID Date Data Source MAXIMUS TITER & PATTERN 09/10/2019 11:15:50 AM EST eCW1 ([facility]) Name Value Range Interpretation Code Description Data Julianna rce(s) Supporting Document(s) Positive eCW1 ([facility]) ID Date Data Source ANTI-SJOGRENS A&B ANTIBODIES 09/10/2019 11:15:50 AM EST eCW1 ([facility]) Name Value Range Interpretation Code Description Data Julianna rce(s) Supporting Document(s) >8.0 eCW1 ([facility]) <0.2 eCW1 ([facility]) ID Date Data Source CYCLIC CITRULLINATED PEPTIDE 09/10/2019 11:15:50 AM EST eCW1 ([facility]) Name Value Range Interpretation Code Description Data Julianna rce(s) Supporting Document(s) 11 eCW1 ([facility]) ID Date Data Source ANTI-CARDIOLIPIN ANTIBODIES 09/10/2019 11:15:50 AM EST eCW1 ([facility]) Name Value Range Interpretation Code Description Data Julianna rce(s) Supporting Document(s) <9 eCW1 ([facility]) <9 eCW1 ([facility]) 15 eCW1 ([facility]) ID Date Data Source ANTI DOUBLE STRAND DNA ZACK 09/10/2019 11:15:50 AM EST eCW1 ( [facility]) Name Value Range Interpretation Code Description Data Julianna rce(s) Supporting Document(s) eCW1 ([facility]) ID Date Data Source BETA-2 GLYCOPROTEIN 1 ZACK ANDRIY 09/10/2019 11:15:50 AM EST eCW 1 ([facility]) Name Value Range Interpretation Code Description Data Julianna rce(s) Supporting Document(s) <9 eCW1 ([facility]) <9 eCW1 ([facility]) <9 eCW1 ([facility]) ID Date Data Source [id number] 09/08/2019 03:55:00 PM EST [facility] [address] [place] [address] [phone] NAME SEX PT STATUS ACCOUNT NUMBER PLIOKY REG REF [id number] ORDERING PHYSICIAN LOCATION MEDICAL RECORD NO. CORY BAGLEY MD [facility] [id number] ATTENDING PHYSICIAN DATE OF DATE OF EXAM/TIME Keri Church DO 1950 09/08/191416 TYPE / EXAM [...] radicular signs. If the patient has radicular signs,further evaluation with MRI may be considered. No lytic or blastic osseous lesions seen. IMPRESSION: 1. No vertebral compression deformity or subluxation. 2. Mild levoscoliosis of the upper lumbar spine. 3. Multilevel degenerative changes, as described, most significant at L3-4 on the right and L4-5 onthe left. Clinical correlation advised. 4. No lytic or blastic osseous lesion. Reported By Pasha Uribe MD on 09/08/191554 Signed By Pasha Uribe MD on 09/08/191557 Date Time CC: Pasha Uribe MD; Keri Church DO Techn: CARRC Trans Dt/Tm: Trans by: DT Prt Dt/Tm: [id number]: Total DLP = 0.00 mGy-cm Fluoroscopy Time (in secs): Name Value Range Interpretation Code Description Data Julianna rce(s) Supporting Document(s) ID Date Data Source [id number] 09/08/2019 03:17:00 PM EST [facility] [address] [place] [id number] [phone] NAME SEX PT STATUS ACCOUNT NUMBER [place] [facility] REF [id number] ORDERING PHYSICIAN LOCATION MEDICAL RECORD NO. CORY BAGLEY MD RAD [id number] ATTENDING PHYSICIAN DATE OF DATE OF EXAM/TIME Keri Church DO 1950 09/08/191417 TYPE / EXAM Xray Knee comp 4 or more LT REASON FOR EXAM PRIMARY OSTEOARTHRITIS MULTIPLE JOINTS COMPARISON: None FINDINGS: There is normal alignment and position of the bones of the knee. No evidence for joint effusion isnoted. No fractures are identified. IMPRESSION: No fracture or dislocation. No significant joint effusion. Reported By Pasha Uribe MD on 09/08/191516 Signed By Pasha Uribe MD on 09/08/191517 Date Time CC: Pasha Uribe MD; Keri Church DO Techn: CARRC Trans Dt/Tm: Trans by: DT Prt Dt/Tm: [id number]: Total DLP = 0.00 mGy-cm Fluoroscopy Time (in secs): Name Value Range Interpretation Code Description Data Julianna rce(s) Supporting Document(s) ID Date Data Source [id number] 09/08/2019 03:16:00 PM [facility] [address] [place] [id number] [phone] NAME SEX PT STATUS ACCOUNT NUMBER [place] RE[place] [id number] ORDERING PHYSICIAN LOCATION MEDICAL RECORD NO. CORY BAGLEY MD RAD [id number] ATTENDING PHYSICIAN DATE OF DATE OF EXAM/TIME Keri Church DO 1950 09/08/19 1418 TYPE / EXAM Xray Knee Comp 4 [...] 09/08/191516 Date Time CC: Pasha Uribe MD; Keri Church DO Techn: CARRC Trans Dt/Tm: Trans by: DT Prt Dt/Tm: : Total DLP = 0.00 mGy-cm Fluoroscopy Time (in secs): Name Value Range Interpretation Code Description Data Julianna rce(s) Supporting Document(s) ID Date Data Source [id number] 09/08/2019 03:13:00 PM [place] [id number] [place], [place] [address] [phone] NAME SEX PT STATUS ACCOUNT NUMBER [place] RE[place] [id number] ORDERING PHYSICIAN LOCATION MEDICAL RECORD NO. CORY BAGLEY MD RAD [id number] ATTENDING PHYSICIAN DATE OF DATE OF EXAM/TIME Keri Church DO 1950 09/08/191417 TYPE / EXAM [...] Reported By Pasha Uribe MD on 09/08/19 1513 Signed By Pasha Uribe MD on 09/08/19 1516 Date Time CC: Pasha Uribe MD; Keri Church DO Techn: CARRC Trans Dt/Tm: Trans by: DT Prt Dt/Tm: : Total DLP = 0.00 mGy-cm Fluoroscopy Time (in secs): Name Value Range Interpretation Code Description Data Julianna rce(s) Supporting Document(s) ID Date Data Source [id number] 09/08/2019 03:10:00 PM [facility] [address] [place] [address] [phone] NAME SEX PT STATUS ACCOUNT NUMBER [place] RE[place] [id number] ORDERING PHYSICIAN LOCATION MEDICAL RECORD NO. CORY BAGLEY MD RAD [id number] ATTENDING PHYSICIAN DATE OF DATE OF EXAM/TIME Keri Church DO 1950 09/08/191417 TYPE / EXAM [...] 09/08/191511 Date Time CC: Pasha Uribe MD; Keri Church DO Techn: CARRC Trans Dt/Tm: Trans by: DT Prt Dt/Tm: [id number]: Total DLP = 0.00 mGy-cm Fluoroscopy Time (in secs): Name Value Range Interpretation Code Description Data Julianna rce(s) Supporting Document(s) ID Date Data Source [id number] 09/08/2019 03:08:00 PM [facility] [address] [place] [address] [phone] NAME SEX PT STATUS ACCOUNT NUMBER [place] RE[place] [id number] ORDERING PHYSICIAN LOCATION MEDICAL RECORD NO. CORY BAGLEY MD RAD [id number] ATTENDING PHYSICIAN DATE OF DATE OF EXAM/TIME Keri Church DO 1950 09/08/191417 TYPE / EXAM [...] of the fourth digit at the PIP jointof the second digit. No lytic or blastic osseous lesion is seen. IMPRESSION: Moderate to severe osteoarthritis. Reported By Pasha Uribe MD on 09/08/19 1508 Signed By Pasha Uribe MD on 09/08/19 1510 Date Time CC: Pasha Uribe MD; Keri Church DO Techn: CARRC Trans Dt/Tm: Trans by: DT Prt Dt/Tm: [phone]: Total DLP = 0.00 mGy-cm Fluoroscopy Time (in secs): Name Value Range Interpretation Code Description Data Julianna rce(s) Supporting Document(s) ID Date Data Source TOTAL PROTEIN,RANDOM URINE 09/08/2019 09:25:32 AM EST [facility] Name Value Range Interpretation Code Description Data Julianna rce(s) Supporting Document(s) 57.0 eCW1 ([facility]) ID Date Data Source CREATININE,RANDOM URINE 09/08/2019 09:25:32 AM EST eCW1 ([facility]) Name Value Range Interpretation Code Description Data Julianna rce(s) Supporting Document(s) 155.0 eCW1 ([facility]) ID Date Data Source UA URINALYSIS 09/08/2019 09:25:32 AM EST eCW1 ([facility]) Name Value Range Interpretation Code Description Data Julianna rce(s) Supporting Document(s) eCW1 ([facility]) ID Date Data Source RHEUMATOID FACTOR QUANT 09/08/2019 09:25:32 AM EST eCW1 ([facility]) Name Value Range Interpretation Code Description Data Julianna rce(s) Supporting Document(s) 101.0 eCW1 ([facility]) ID Date Data Source HEPATITIS C ANTIBODY INDEX 09/08/2019 09:25:32 AM EST [facility]CW[facility] Name Value Range Interpretation Code Description Data Julianna rce(s) Supporting Document(s) < 0.0 eCW1 ([facility]) ID Date Data Source HEPATITIS B SURFACE ANTIGEN 09/08/2019 09:25:32 AM EST eCW[facility] Name Value Range Interpretation Code Description Data Julianna rce(s) Supporting Document(s) NEGATIVE eCW1 ([facility]) ID Date Data Source ERYTHROCYTE SEDIMENTATION RATE 09/08/2019 09:25:32 AM EST eC W1 [facility] Name Value Range Interpretation Code Description Data Julianna rce(s) Supporting Document(s) 13 eCW1 ([facility]) ID Date Data Source C REACTIVE PROTEIN QUANTITATIV (At [facility]) 09/08/2019 09:25 :32 AM EST eCW1 [facility] Name Value Range Interpretation Code Description Data Julianna rce(s) Supporting Document(s) 0.57 eCW1 ([facility]) ID Date Data Source Comprehensive Metabolic Profile (CMP) 09/08/2019 09:25:32 AM EST eCW1 [facility]) Name Value Range Interpretation Code Description Data Julianna rce(s) Supporting Document(s) 109 eCW1 ([facility]) 10 eCW1 ([facility]) 4.1 eCW1 ([facility]) 142 eCW1 ([facility]) 0.82 eCW1 ([facility]) > 60.0 eCW1 ([facility]) 9.3 eCW1 ([facility]) 29 eCW1 ([facility]) 48 eCW1 ([facility]) 110 eCW1 ([facility]) 8.0 eCW1 ([facility]) 117 eCW1 ([facility]) 0.7 [facility]CW1 [facility] 43 eCW1 ([facility] 0.82 eCW1 ([facility]) 3.6 eCW1 ([facility]) ID Date Data Source CBC with Differential 09/08/2019 09:25:32 AM EST eCW1 [facility] Name Value Range Interpretation Code Description Data Julianna rce(s) Supporting Document(s) 5.02 eCW1 ([facility]) 9.0 eCW1 ([facility]) 94.6 eCW1 ([facility]) 47.5 eCW1 ([facility]) 30.9 eCW1 ([facility]) 15.5 eCW1 ([facility]) 47.0 eCW1 ([facility]) 15.9 eCW1 ([facility]) 32.6 eCW1 ([facility]) 305 eCW1 ([facility]) 32.2 eCW1 ([facility]) 0.9 eCW1 ([facility]) 11.2 eCW1 ([facility]) 2.9 eCW1 ([facility]) 8.6 eCW1 ([facility]) 0[facility]8 eCW1 ([facility]) 0.1 eCW1 ([facility]) 1.0 eCW1 ([facility]) 4.2 eCW1 ([facility]) ID Date Data Source COMPLEMENT C4 09/08/2019 09:25:32 AM EST eCW1 ([facility]) Name Value Range Interpretation Code Description Data Julianna rce(s) Supporting Document(s) 22 eCW1 ([facility]) ID Date Data Source COMPLEMENT C3 09/08/2019 09:25:32 AM EST eCW1 ([facility]) Name Value Range Interpretation Code Description Data Julianna rce(s) Supporting Document(s) 118 eCW1 ([facility]) Procedure Social History Code Duration Value Status Description Data Source(s ) Smoking 09/07/2020 12:00:00 AM EST Patient is a former smoker completed Patient is a former smoker [facility] ([facility]) Smoking 08/10/2020 09:20:03 AM EST Never smoked tobacco (findi ng) completed Never smoked tobacco (finding) [facility] (Andrew Gerber [facility]) 06/27/2020 06:24:40 PM EST Former smoker completed Former smoker [facility] 06/27/2020 06:24:40 PM EST Former smoker completed Former smoker [facility] 06/27/2020 06:24:40 PM EST Former smoker completed Former smoker [facility] Smoking 06/27/2020 06:24:00 PM EST Former smoker completed Former smoker [facility] Smoking 06/27/2020 06:24:00 PM EST Former smoker completed Former smoker [facility] Smoking 06/27/2020 06:24:00 PM EST Former smoker completed Former smoker [facility] 06/15/2020 12:09:00 PM EST Former smoker completed Former smoker [facility] Smoking 06/15/2020 12:09:00 PM EST Former smoker completed Former smoker [facility] 06/15/2020 12:09:00 PM EST Former smoker completed Former smoker [facility] Smoking 06/15/2020 12:09:00 PM EST Former smoker completed Former smoker [facility] Smoking 05/02/2020 10:32:00 AM EDT Former smoker completed Former smoker [facility] 05/02/2020 09:32:01 AM EDT Former smoker completed Former smoker [facility] 05/02/2020 09:32:01 AM EDT Former smoker completed Former smoker [facility] Smoking 05/02/2020 09:32:00 AM EDT Former smoker completed Former smoker [facility] Smoking 03/26/2020 01:48:11 PM EDT Never smoked tobacco (findi ng) completed Never smoked tobacco (finding) [facility] (Andrew Gerber [facility]) 03/08/2020 10:24:52 AM EDT Former smoker completed Former smoker [facility] 03/08/2020 10:24:52 AM EDT Former smoker completed Former smoker [facility] Smoking 03/08/2020 10:24:00 AM EDT Former smoker completed Former smoker [facility] Smoking 03/08/2020 10:24:00 AM EDT Former smoker completed Former smoker [facility] 12/16/2019 04:15:19 PM EDT Former smoker completed Former smoker [facility] 12/16/2019 04:15:19 PM EDT Former smoker completed Former smoker [facility] 12/16/2019 04:15:19 PM EDT Former smoker completed Former smoker [facility] 12/16/2019 04:15:19 PM EDT Former smoker completed Former smoker [facility] Smoking 12/16/2019 04:15:00 PM EDT Former smoker completed Former smoker [facility] Smoking 12/16/2019 04:15:00 PM EDT Former smoker completed Former smoker [facility] 11/25/2019 09:46:07 AM EDT Former smoker completed Former smoker [facility] 11/25/2019 09:46:07 AM EDT Former smoker completed Former smoker [facility] 11/25/2019 09:46:07 AM EDT Former smoker completed Former smoker [facility] 11/25/2019 09:46:07 AM EDT Former smoker completed Former smoker [facility] 11/25/2019 09:46:07 AM EDT Former smoker completed Former smoker [facility] Smoking 11/25/2019 09:46:00 AM EDT Former smoker completed Former smoker [facility] 10/28/2019 11:03:09 AM EDT Former smoker completed Former smoker [facility] 10/28/2019 11:03:09 AM EDT Former smoker completed Former smoker [facility] 10/28/2019 11:03:09 AM EDT Former smoker completed Former smoker [facility] 10/28/2019 11:03:09 AM EDT Former smoker completed Former smoker [facility] 10/28/2019 11:03:09 AM EDT Former smoker completed Former smoker [facility] 10/28/2019 11:03:09 AM EDT Former smoker completed Former smoker [facility] Smoking 10/28/2019 11:03:00 AM EDT Former smoker completed Former smoker [facility] 10/22/2019 04:49:23 PM EDT Former smoker completed Former smoker [facility] 10/22/2019 04:49:23 PM EDT Former smoker completed Former smoker [facility] 10/22/2019 04:49:23 PM EDT Former smoker completed Former smoker [facility] 10/22/2019 04:49:23 PM EDT Former smoker completed Former smoker [facility] 10/22/2019 04:49:23 PM EDT Former smoker completed Former smoker [facility] 10/22/2019 04:49:23 PM EDT Former smoker completed Former smoker [facility] 10/22/2019 04:49:23 PM EDT Former smoker completed Former smoker [facility] Smoking 10/22/2019 04:49:00 PM EDT Former smoker completed Former smoker [facility] 10/21/2019 01:41:29 PM EDT Former smoker completed Former smoker [facility] 10/21/2019 01:41:29 PM EDT Former smoker completed Former smoker [facility] 10/21/2019 01:41:29 PM EDT Former smoker completed Former smoker [facility] 10/21/2019 01:41:29 PM EDT Former smoker completed Former smoker [facility] 10/21/2019 01:41:29 PM EDT Former smoker completed Former smoker [facility] 10/21/2019 01:41:29 PM EDT Former smoker completed Former smoker [facility] 10/21/2019 01:41:29 PM EDT Former smoker completed Former smoker [facility] 10/21/2019 01:41:29 PM EDT Former smoker completed Former smoker [facility] Smoking 10/21/2019 01:41:00 PM EDT Former smoker completed Former smoker [facility] Smoking 09/30/2019 12:00:00 AM EST UNK completed [facility] Smoking 09/30/2019 12:00:00 AM EST UNK completed [facility]CW[facility] Smoking 09/30/2019 12:00:00 AM EST UNK completed [facility]CW[facility] Vital Signs ID Date Data Source UNK Name Value Range Interpretation Code Description Data Source(s) Body mass index (BMI) [Ratio] 31.5 kg/m2 31.5 k g/m2 [facility] ([facility]) Body weight 148.00 [lb_av] 148.00 [lb_av] MEDEN T ([facility]) Body height 57.5 [in_i] 57.5 [in_i] [facility] ([facility]) 4'9.50" Heart rate 56 /min 56 /min [facility] ([facility] Respiratory rate 16 /min 16 /min [facility] ( [facility]) Diastolic blood pressure 84 mm[Hg] 84 mm[Hg] [facility] ([facility]) Systolic blood pressure 122 mm[Hg] 122 mm[Hg] M EDENT ([facility]) Respiratory rate 16 /min 16 /min [facility] ( [facility]) Body mass index (BMI) [Ratio] 34.6 kg/m2 34.6 k g/m2 [facility] ([facility]) Body weight 160.00 [lb_av] 160.00 [lb_av] MEDEN T ([facility]) Body height 57 [in_i] 57 [in_i] [facility] 4'9" Respiratory rate 16 /min 16 /min [facility] ( [facility]) Body mass index (BMI) [Ratio] 34.6 kg/m2 34.6 k g/m2 [facility] ([facility]) Body weight 160.00 [lb_av] 160.00 [lb_av] MEDEN T ([facility]) Body height 57 [in_i] 57 [in_i] [facility] 4'9" Body mass index (BMI) [Ratio] 33.8 kg/m2 33.8 k g/m2 [facility] ([facility]) Body weight 159.00 [lb_av] 159.00 [lb_av] MEDEN T ([facility]) Body height 57.5 [in_i] 57.5 [in_i] [facility] ([facility]) 4'9.50" Heart rate 80 /min 80 /min [facility] Diastolic blood pressure 82 mm[Hg] 82 mm[Hg] [facility] ([facility]) Systolic blood pressure 178 mm[Hg] 178 mm[Hg] M EDENT ([facility]) Body mass index (BMI) [Ratio] 34.6 kg/m2 34.6 k g/m2 [facility] ([facility]) Body weight 160.00 [lb_av] 160.00 [lb_av] MEDEN T ([facility]) Body height 57 [in_i] 57 [in_i] [facility] 4'9" Body height 57 [in_i] 57 [in_i] [facility] 4'9" Diastolic blood pressure 84 mm[Hg] 84 mm[Hg] [facility] ([facility]) Systolic blood pressure 136 mm[Hg] 136 mm[Hg] M EDENT ([facility]) Body mass index (BMI) [Ratio] 34.0 kg/m2 34.0 k g/m2 [facility] ([facility]) Body weight 157.00 [lb_av] 157.00 [lb_av] MEDEN T ([facility]) Body height 57 [in_i] 57 [in_i] [facility] 4'9" Heart rate 52 /min 52 /min [facility] ([facility] Respiratory rate 16 /min 16 /min [facility] ( [facility]) Body mass index (BMI) [Ratio] 34.0 kg/m2 34.0 k g/m2 [facility] ([facility]) Body weight 157.00 [lb_av] 157.00 [lb_av] MEDEN T ([facility]) Body height 57 [in_i] 57 [in_i] [facility] 4'9" Diastolic blood pressure 100 mm[Hg] 100 mm[Hg] [facility] ([facility]) Systolic blood pressure 185 mm[Hg] 185 mm[Hg] M EDENT ([facility]) Body mass index (BMI) [Ratio] 32.4 kg/m2 32.4 k g/m2 [facility] ([facility]) Body weight 155.00 [lb_av] 155.00 [lb_av] MEDEN T ([facility]) Body height 58 [in_i] 58 [in_i] [facility] ([facility] 4'10" Heart rate 57 /min 57 /min [facility] ([facility] Diastolic blood pressure 80 mm[Hg] 80 mm[Hg] [facility] ([facility]) Systolic blood pressure 120 mm[Hg] 120 mm[Hg] M EDENT ([facility]) Diastolic blood pressure 68 mm[Hg] 68 mm[Hg] [facility] Systolic blood pressure 122 mm[Hg] 122 mm[Hg] e CW1 [facility] Body temperature 98.7 [degF] 98.7 [degF] eCW[facility] Respiratory rate 18 /min 18 /min eCW1 ([facility]) Heart rate /min eCW1 ([facility]) Body mass index (BMI) [Ratio] 32.81 kg/m2 32.81 kg/m2 W1 ([facility] Body height 58 [in_us] 58 [in_us] eCW1 ([facility]) Body weight Measured 157.0 [lb_av] 157.0 [lb_av ] eCW1 [facility] Diastolic blood pressure 84 mm[Hg] 84 mm[Hg] eCW1 [facility]) Systolic blood pressure 126 mm[Hg] 126 mm[Hg] e CW1 [facility] Body temperature 98.9 [degF] 98.9 [degF] eCW1 [facility] Respiratory rate 18 /min 18 /min eCW1 ([facility]) Heart rate 50 /min 50 /min eCW1 ([facility]) Body mass index (BMI) [Ratio] 32.77 kg/m2 32.77 kg/m2 W1 [facility]) Body height 58 [in_i] 58 [in_i] eCW1 ([facility]) Body weight 71.1 kg 71.1 kg eCW1 ([facility]) Body weight 156.8 [lb_av] 156.8 [lb_av] eCW1 ([facility]) Patient Treatment Plan of Care Planned Activity Planned Date Details Description Data Source (s) moxifloxacin 5 MG/ML Ophthalmic Solution 09/08/2020 12:00:00 AM EST [facility] ([facility]) difluprednate 0.5 MG/ML Ophthalmic Suspension [Durezol ] 09/08/2020 12:00:00 AM EST [facility] ([facility]) nepafenac 3 MG/ML Ophthalmic Suspension [Ilevro] 09/08/2020 12:00:0 0 AM EST [facility] ([facility]) moxifloxacin 5 MG/ML Ophthalmic Solution 09/08/2020 12:00:00 AM EST [facility] ([facility]) BromSite 0.075% Ophthalmic Solution 09/08/2020 12:00:00 AM EST [facility] ([facility]) Inveltys 1% Ophthalmic Suspension 09/08/2020 12:00:00 AM EST [facility] ([facility]) moxifloxacin 5 MG/ML Ophthalmic Solution 09/08/2020 12:00:00 AM EST [facility] ([facility] Gerber [facility])
[2020-09-16] MEDS ORDERED: BSS IRR 500ML/OMIDRIA 4ML IRR BAG (OR ONLY) As Ordered ONE (10:44)
[2020-09-16 11:55] VITALS: BP 201/92
--- NOTE | 2020-09-18 12:22 | RO ---
OPERATIVE NOTE PREOPERATIVE DIAGNOSIS: 1. Visually significant nuclear sclerotic cataract, right eye. POSTOPERATIVE DIAGNOSIS: 1. Visually significant nuclear sclerotic cataract, right eye. PROCEDURE: 1. Cataract extraction with use of phacoemulsification, and placement of intraocular lens, [id number], 22.0 D, right eye. SURGEON: Reilly Reddy DO ANESTHESIA: Local (Omidria with MAC) COMPLICATIONS: None POSTOPERATIVE CONDITION: Stable INDICATIONS FOR SURGERY: 1. Blurred vision affecting patient's activities of daily living. DESCRIPTION OF PROCEDURE: The patient was seen in the preoperative area and properly identified. The correct operative eye was identified and marked. The patient received topical anesthetic, antibiotics, and topical dilating drops. The patient was then transferred to the operating room. The correct side was re-identified and a time-out was performed. The eye was prepped and draped in a sterile fashion. The eyelids were isolated with Tegaderm tape and the lids were held open with an adjustable speculum. A 1.0mm paracentesis incision was made. Omidria was then injected into the anterior chamber. Viscoelastic was then injected into the anterior chamber through the paracentesis. Using a 2.4mm sharp-tipped keratome, the anterior chamber was entered via a temporal clear cornea incision. A continuous curvilinear capsulorrhexis was created with Utrata forceps. Hydrodissection was performed with BSS on a blunt cannula until the nucleus was able to rotate freely. The crystalline lens was phacoemulsified and aspirated. Irrigation/aspiration was used to remove the cortical material Cohesive viscoelastic was placed into the capsular bag to deepen it. The implant was placed into the capsular bag and allowed to unfold. Placement was confirmed by visualizing the anterior capsulorrhexis. Irrigation/aspiration was used to remove the viscoelastic. The clear corneal incision was hydrated with BSS on a blunt cannula. The lens was well positioned. Intracameral antibiotic was injected into the anterior chamber. The incisions were then tested for leaks and found to be negative. The eye was then palpated for appropriate pressure and adjusted accordingly with BSS. The eyelid speculum was then carefully removed. A shield was placed over the eye. The patient tolerated the procedure well and was discharge to the recovery unit in a stable condition.
== END 2020-09-16 12:00 | disposition home or self-care (01) ==
LOC: M SDC 10:18
PROVIDERS: ATTEND Ophthalmology
DX: H25.11 Age-related nuclear cataract, right eye (principal); I10 Essential (primary) hypertension; R73.03 Prediabetes; K21.9 Gastro-esophageal reflux disease without esophagitis; M32.9 Systemic lupus erythematosus, unspecified; Z86.73 Personal history of transient ischemic attack (TIA), and cerebral infarction without residual deficits; Z86.718 Personal history of other venous thrombosis and embolism; Z79.01 Long term (current) use of anticoagulants; Z79.899 Other long term (current) drug therapy; M79.7 Fibromyalgia; Z88.2 Allergy status to sulfonamides; Z88.5 Allergy status to narcotic agent; Z88.8 Allergy status to other drugs, medicaments and biological substances
CPT/HCPCS: 66984; J1097; J2250; J3010; V2632

== ENCOUNTER → 2020-09-18 | Outpatient (CLI) | payer MEDICARE, OTHER ==
[~2020-09-18] MED LIST changes: -CEFUROXIME 1MG/0.1ML INTRACAMERAL INJ As Ordered ONE; -DUOVISC (0.50ML VISCOAT/0.55ML PROVISC) OPHTH KIT As Ordered ONE; -MIDAZOLAM INJ 2MG/2ML VIAL (J2250 PER 1MG) As Ordered ONE; -OFLOXACIN 0.3 % (OCUFLOX) OPTH SOL 5ML OD ONE; -PHENYLEPHRINE 2.5% OPHTH SOL 2ML OD ONE; -POVIDONE-IODINE 5% OPHTH PREP SOL 30ML As Ordered ONE; -PROPARACAINE 0.5% OPHTH SOL 15ML OD ONE; -TROPICAMIDE 1% OPHTH SOLN 2ML OD ONE; -fentaNYL 100 MCG/2 ML INJECTION (J3010) As Ordered ONE
== END ==
LOC: M LABSMTC 09:47
PROVIDERS: ATTEND Anesthesiology
DX: Z01.812 Encounter for preprocedural laboratory examination (principal); Z20.822 Contact with and (suspected) exposure to COVID-19

== ENCOUNTER 2020-09-23 08:08 | Day surgery (SDC) | payer MEDICARE, OTHER ==
[~2020-09-23] VITALS: Ht 147.3 cm; Wt 67.6 kg
[~2020-09-23 08:08] MED LIST changes: +BSS IRR 500ML/OMIDRIA 4ML IRR BAG (OR ONLY) As Ordered ONE; +CEFUROXIME 1MG/0.1ML INTRACAMERAL INJ As Ordered ONE; +DUOVISC (0.50ML VISCOAT/0.55ML PROVISC) OPHTH KIT As Ordered ONE; +MIDAZOLAM INJ 2MG/2ML VIAL (J2250 PER 1MG) As Ordered ONE; +OFLOXACIN 0.3 % (OCUFLOX) OPTH SOL 5ML OS ONE; +PHENYLEPHRINE 2.5% OPHTH SOL 2ML OS ONE; +POVIDONE-IODINE 5% OPHTH PREP SOL 30ML As Ordered ONE; +PROPARACAINE 0.5% OPHTH SOL 15ML OS ONE; +TROPICAMIDE 1% OPHTH SOLN 2ML OS ONE; +fentaNYL 100 MCG/2 ML INJECTION (J3010) As Ordered ONE
--- OUTSIDE RECORDS SUMMARY | 2020-09-23 08:16 | CCD | Continuity of Care Document ---
Author Author Viridiana PARR MD Organization Unknown Address [address] [place] [id number] Phone [phone] Care Team Providers Care Automotive Electrician Helper Name Role Phone Jose R Church DO AUTM [phone] Problems Active Problems Provider Date Syncope and collapse Onset: Abdominal pain Onset: Essential hypertension Onset: Prediabetes Onset: Arthritis Onset: Gastroesophageal reflux disease Onset: 0 Hearing loss Onset: CVA - Cerebrovascular accident Onset: IBS - Irritable bowel syndrome Onset: Liver disease Onset: Osteoporosis Onset: Recurrent sinusitis Onset: Urinary incontinence Onset: Right bundle branch block Delia Marquez RN, EXCHANGE SPECIALIST Onset: 03/02 History of cerebrovascular accident without residual d eficits Delia Marquez RN, EXCHANGE SPECIALIST Onset: 03/02/2020 Hypercoagulability state Roger Parr MD [...] Powder 550mg daily Unknown Calcium Carbonate-Vitamin D [id number] Tablets 1 by mouth twice a day [...] Date Location Provider Dx Diagnosis Office Visit 09/07/2020 1:00p [place] [facility] Roger Parr MD I10 Essential (primary) hypertension I45.19 Other right bundle-branch bl ock Z86.73 Prsnl hx of TIA (TIA), and c ereb infrc w/o resid deficits D68.61 Antiphospholipid syndrome R06.02 Shortness of breath E11.9 Type 2 diabetes mellitus wit hout complications Assessments Date Code Description Provider 09/07/2020 I10 [...] 1:30 pm - [place] CHERRY ([id number]) at [place] [facility] * 11/02/2020 9:30 am - [place] ECHO ([id number]) at [place] [facility] 09/07/2020 - Roger Parr MD* I10 [...] will be seeing her back in our [place] office in 1 year lipid profile will be obtained I discussed with patient and lipid is abnormal we'll initiate statin therapy. Thank you for having us participate in cardiac care of this pleasant lady Functional Status Description No Information Available Mental Status Description No Information Available Referrals Description No Information Available
--- OUTSIDE RECORDS SUMMARY | 2020-09-23 08:16 | CCD ---
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 Reilly Wilson in DO Active Retirement Use of Other Medications 03/26/2020 - 12:00AM Andrew Samuel MD, FACS Active 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 03/26/2020 - 12:00AM Andrew Samuel MD, FACS Active Rheumatoid Arthritis Rf Positive 03/26/2020 - 12:00AM Andrew Samuel MD, FACS Active Cataract Senile Nuclear 03/26/2020 - 12:00AM Andrew Samuel MD, FACS Active Sicca Syndrome with Keratoconjunctivitis 03/26/2020 - 12:00AM Andrew Gerber MD, FACS Active Dry Eye Syndrome 03/26/2020 - 12:00AM Andrew gandara MD, FACS Active Vitreous Disorders Degeneration 03/26/2020 - 12:00AM Andrew Samuel MD, FACS Active Plan of Treatment Pending Tests Order Diagnosis Results Due Ordering Provi vivek Testing Ordered - Visual Field Visual Field 10-2 Red Rheu ar thritis w rheu factor mult site w/o org/sys involv 09/22/20 Andrew lindsey MD, FACS Testing Ordered - OCT OCT RETINA Rheu arthritis w r heu factor mult site w/o org/sys involv 09/22/20 Andrew Samuel MD, FACS Testing Ordered - Visual Field Visual Field 30-2 Cerebrova scular disease, unspecified 02/06/21 Reilly Reddy DO Testing Ordered - Visual Field Visual Field 30-2 Cerebrova scular disease, unspecified 02/06/21 Reilly Reddy DO Testing Ordered - OCT OCT RETINA Rheu arthritis w r heu factor mult site w/o org/sys involv 02/06/21 Reilly Reddy DO Future Appointments Date Time Location Provider POST OP VISIT WITH PRE-OP 09/17/2020 9:40AM Andrew lindsey MD [facility] Reilly Reddy DO Extracapsular cataract removal w/IOL implant 09/23/2020 11: 40AM [facility] Reilly Reddy DO 1 Week Post OP 10/01/2020 9:40AM Andrew Samuel MD [facility] attmarilu Reddy DO Assessments Includes: Assessments for all patient encounters Findings Encounter Date Nuclear senile cataract 1 WK PREOP FOR SURGERY with Reilly Reddy DO 09/08/2020 nursing home use of other medications TESTING - VISUAL FI ELD & OCT with Reilly Reddy DO 08/19/2020 Rheumatoid arthritis RF positive TESTING - VISUAL FIEL D & OCT with Reilly Reddy DO 08/19/2020 Stroke/cerebrovascular accident TESTING - VISUAL FIELD & OCT with Reilly Reddy DO 08/19/2020 Dry eye syndrome Cataract Evaluation with Reilly Wilson in DO 08/10/2020 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 Cataract Evaluation with Reilly Reddy DO 08/10/2020 Nuclear senile cataract Cataract Evaluation with Reilly andino DO 08/10/2020 Rheumatoid arthritis RF positive Cataract Evaluation with Stefani ttmarilu Reddy DO 08/10/2020 Sicca syndrome with keratoconjunctivitis Cataract Eval uation with Reilly Reddy DO 08/10/2020 Stroke/cerebrovascular accident Cataract Evaluation with Shane therosalia Reddy DO 08/10/2020 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 VISUAL FIELD 10-2 w ith Andrew Samuel MD, FACS 04/26/2020 Rheumatoid arthritis RF positive VISUAL FIELD 10-2 wit h Andrew Samuel MD, FACS 04/26/2020 Classic migraine (with aura) without int ractable migraine without status migrainosus TRIAGE NEW PATIENT WITH REFERRAL with Andrew gandara MD, FACS 03/26/2020 Dry eye syndrome TRIAGE NEW PATIENT WITH REFE RRAL with Andrew Samuel MD, FACS 03/26/2020 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 TRIAGE NEW PATIENT WITH REFERRAL with Andrew Samuel MD, FACS 03/26/2020 Nuclear senile cataract TRIAGE NEW PATIENT WITH REFE RRAL with Andrew Gerber MD, FACS 03/26/2020 Rheumatoid arthritis RF positive TRIAGE NEW PATIENT WI TH REFERRAL with Andrew Samuel MD, FACS 03/26/2020 Sicca syndrome with keratoconjunctivitis TRIAGE NEW PA TIENT WITH REFERRAL with Andrew Samuel MD, FACS 03/26/2020 Vitreous degeneration TRIAGE NEW PATIENT WITH REFE RRAL with Andrew Samuel MD, FACS 03/26/2020 Instructions Instructions not supported for this document typeNo Instructions Recorded Medical Equipment - Implanted Devices Includes: Current and historical DevicesNo Medical Equipment Recorded Medications Includes: Current and historical Medications Current Medications (continue as prescribed) Moxifloxacin HCl 0.5% Ophthalmic Solution 09/08/2020 Provider: Reilly Reddy DO Diagnosis: Age-related nuclear cataract, right eye Three days prior to surgery start one drop four times a day in the right eye Inveltys 1% Ophthalmic Suspension 09/08/2020 Provid er: Reilly Reddy DO Diagnosis: Age-related nuclear cataract, right eye Day of surgery remove patch start one drop two times a day i n the right eye BromSite 0.075% Ophthalmic Solution 09/08/2020 Prov ider: Reilly Reddy DO Diagnosis: Age-related nuclear cataract, right eye Three days prior to surgery start one drop two times a day i n the right eye, Docusate Sodium 100 MG Oral Capsule 03/26/2020 Prov ider: Diagnosis: Hydroxychloroquine 200 MG Oral Tablet 03/26/2020 Pr ovider: Diagnosis: Gabapentin 100 MG Oral Capsule 03/26/2020 Provider: Diagnosis: Magnesium 400 MG Oral Tablet 03/26/2020 Provider: Diagnosis: Potassium 5 MEQ Oral Tablet 03/26/2020 Provider: Diagnosis: Nadolol 20 MG Oral Tablet 03/26/2020 Provider: Diagnosis: Protonix 40 MG Oral Packet 03/26/2020 Provider: Diagnosis: Calcium-Vitamin D 500-200 MG-UNIT Oral Tablet 03/26/2020 Provider: Diagnosis: Cymbalta 30 mg Oral Tablet 03/26/2020 Provider: Diagnosis: Adult Aspirin EC Low Strength 81 MG Oral Tablet Delayed Rele ase 03/26/2020 Provider: Diagnosis: Restasis 0.05% Ophthalmic Emulsion 03/26/2020 Provi vivek: Diagnosis: Daily Mel Multivitamin/Iron Oral Tablet 03/26/2020 Provider: Diagnosis: Warfarin Sodium 5 MG Oral Tablet 03/26/2020 Provide r: Diagnosis: Sunday, Sunday, Sunday, Sunday, Sunday Warfarin Sodium 3 MG Oral Tablet 03/26/2020 Provide r: Diagnosis: Sunday and Lisinopril 20 MG Oral Tablet 03/26/2020 Provider: Diagnosis: Ascorbic Acid 500 MG Oral Capsule 03/26/2020 Provid er: Diagnosis: Kelli Allergy 180 MG Oral Tablet 03/26/2020 Provi vivek: Diagnosis: rifAXIMin 550 MG Oral Tablet 03/26/2020 Provider: Diagnosis: Past Medications on file Moxifloxacin HCl 0.5% Ophthalmic Solution 09/08/2020 - 09/08 Provider: Reilly Reddy DO Diagnosis: Age-related nuclear cataract, right eye Three days prior to surgery start one drop four times a day in the right eye Ilevro 0.3% Ophthalmic Suspension 09/08/2020 - 09/08/2020 Pr ovider: Reilly Reddy DO Diagnosis: Age-related nuclear cataract, right eye Three days prior to surgery start one drop two times a day i n the right eye Durezol 0.05% Ophthalmic Emulsion 09/08/2020 - 09/08/2020 Pr ovider: Reilly Reddy DO Diagnosis: Age-related nuclear cataract, right eye Day of surgery remove patch start one drop four times a day in the right eye Moxifloxacin HCl 0.5% Ophthalmic Solution 09/08/2020 - 09/08 Provider: Reilly Reddy DO Diagnosis: Age-related nuclear cataract, right eye Three days prior to surgery start one drop four times a day in the right eye Medications Administered Includes: Administered Medications in patient's chartNo Administered Medications Recorded Vital Signs Includes: Vital Signs from 09/16/2019 through 09/16/2020No Vital Signs Recorded For Specified Dates Results Includes: Results from 09/16/2019 through 09/16/2020No Results Recorded For Specified Dates History of Present Illness History of Present Illness not supported for this document typeNo History of Present Illness Recorded Social History Description Last Updated Tobacco non-user 08/10/2020 No smoking status : Never smoked/ Recode: 4 08/10/2020 No tobacco use 08/10/2020 Not using drugs 08/10/2020 Alcohol use 1 glass per week 03/26/2020 Procedures and Surgical History Includes: Procedures from 09/16/2019 through 09/16/2020 Procedures Code Diagnosis Performing Provider Service Location Service Date Intermediate Eye Exam Established Patient (Signi/Sep Eval. & Man.) 47107 Age- related nuclear cataract, right eye Reilly Wilson [facility] 09/08/2020 Ophthalmic biometry - IOL Master with IO L calculation (Right Side, WAIVER OF LIABILITY ON FILE (ABN)) 07703 Age-related nuclear cataract, right eye Reilly Galvan MD [facility] 09/08/2020 Scodi Retina, with interpretation and re port (WAIVER OF LIABILITY ON FILE (ABN)) 79612 Rheu arthritis w rheu factor mult site w/o org/sys involv, Other mcfp (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 therapy Reilly Galvan MD [facility] 08/19/2020 Visual Field (WAIVER OF LIABILITY ON FILE (ABN)) 58522 Cerebrovascular disease, unspecified Reilly Galvan MD [facility] 08/19/2020 Intermediate Eye Exam Established Patient [id number] Age-related nuclear cataract, bilateral, Rheu arthritis w rheu factor mult site w/o org/sys involv, 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, Cerebrovascular disease, unspecified Reilly Galvan MD [facility] 08/10/2020 Visual Field (WAIVER OF LIABILITY ON FILE (ABN)) 18695 Rheu arthritis w rheu factor mult site w/o org/sys involv, 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 Andrew Samuel MD, FACS Andrew Samuel MD [facility] 04/26/2020 Medical Eye Exam 55843 Rheu arthritis w rhe u factor mult site w/o org/sys involv, Other mcfp (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 therapy, Age-related nuclear cataract, bilateral, Dry eye syndrome of bilateral lacrimal glands Andrew Samuel MD, FACS Andrew Samuel MD [facility] 03/26/2020 Surgical History Last Updated Surgical / procedural history Spleen Removal, Hystere ctomy 03/26/2020 Medical History Includes: Medical History in patient's chart Description Last Updated Reported medical history Lupus, Fibromy algia, Sjorgens, Antiphospholipid Syndrome, Stroke October 2019 08/10/2020 No recent change in medical history 08/10/2020 History of rheumatoid arthritis 03/26/2020 History of hypertension 03/26/2020 History of arthritis 03/26/2020 Family History Includes: Family History in patient's chart Description Last Updated Maternal history of arthritis 08/10/2020 Maternal history of diabetes mellitus 08/10/2020 Maternal history of family history of cancer 1 Paternal history of family history of cancer 1 Sororal history of cataract 08/10/2020 Sororal history of family history of cancer 08/10/2020 Review of Systems Review of Systems not supported for this document typeNo Review of Systems Recorded Mental Status Mental Status not supported for this document typeNo Mental Status Recorded Functional Status Functional Status not supported for this document typeNo Functional Status Recorded Physical Exam Physical Exam not supported for this document typeNo Physical Exam Recorded Immunizations Includes: Immunizations in patient's chartNo Immunizations Recorded Allergies Includes: Active, inactive, and resolved Allergies Substance Type Reaction Onset Date - Time Resolved Date - Ti me Status Valium Allergy 03/26/2020 - 12:24PM Acti ve Sulfa Antibiotics Allergy 03/26/2020 - 12:23PM Active Macrobid Allergy 03/26/2020 - 12:25PM Acti ve Codeine and Related Allergy 03/26/2020 - 12:23PM Active Encounters Includes: Encounters from 09/16/2019 through 09/16/2020 Encounter Provider Location Date Check-In Time Check-Out Time D iagnosis Extracapsular cataract removal w/IOL implant Reilly Wilson in [facility] 09/16/2020 09/08/2020 7:30AM 7:12AM 1 WK PREOP FOR SURGERY Reilly Galvan MD [facility] 09/08/2020 12:13PM 1:11PM Cataract Senile Nuclear OCT RETINA Andrew Samuel MD [facility] 08/19/2020 12:48PM 1:3 1PM TESTING - VISUAL FIELD & OCT Reilly Arias MD [facility] 08/19/2020 12:48PM 1:31PM Rheumatoid Arthritis Rf Positive, 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, Stroke/cerebrovascular Accident Cataract Evaluation Reilly Galvan MD [facility] 0 08/10/2020 8:23AM 9:12AM Cataract Senile Nuclear, Dry Eye Syndrome, Retirement Use of Other Medications, Rheumatoid Arthritis Rf Positive, Sicca Syndrome with Keratoconjunctivitis, Stroke/cerebrovascular Accident VISUAL FIELD 10-2 Andrew Samuel MD, FACS Andrew Samuel MD [facility] 04/26/2020 12:12PM 1:01PM Rheumatoid Arthritis Rf Positive, Retirement Use of Other Medications TRIAGE NEW PATIENT WITH REFERRAL Andrew Samuel MD, FAC S Andrew Samuel MD [facility] 03/26/2020 12:23PM 1:44PM Retirement Use of Other Medications, Sicca Syndrome with Keratoconjunctivitis, Rheumatoid Arthritis Rf Positive, Dry Eye Syndrome, Cataract Senile Nuclear, Vitreous Disorders Degeneration, 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 Insurance Includes: Active Insurance Policies Plan Name Member ID Group # Subscriber Relationship Effective Da deidre 1 - Medicare Part B [facility] ([facility] [id number] Viridiana Mcmanus Self 2 - PRIME RETIRED [id number] Viridiana Mcmanus Se Advance Directives Includes: Current Advance DirectivesNo Advance Directives Recorded Health Concerns Includes: Active Health ConcernsNo Active Health Concerns Recorded Goals Includes: Active GoalsNo Active Goals Recorded Interventions Includes: Interventions for active GoalsNo Interventions Recorded Evaluations & Outcomes Includes: Evaluations & Outcomes for active GoalsNo Outcomes Recorded
--- OUTSIDE RECORDS SUMMARY | 2020-09-23 08:19 | CCD ---
Author Author [facility] Organization [facility] Address Unknown Phone Unavailable Care Team Providers Care Retail Analytics Manager Name Role Phone CORY BAGLEY Unavailable Unavailable DAGOBERTO MÉNDEZ Unavailable Unavailable KERI OGDEN Unavailable Unavailable KERI [...] Aziz DO Unavailable Unavailab le KOPIAyde NORIEGA MIXING AND MOLDING MACHINE OPERATOR-COLLEGE TEACHER-C Unavailable Unava ilable KOPIDLAyde KAYE MIXING AND MOLDING MACHINE OPERATOR-COLLEGE TEACHER-C Unavailable Unava ilable KOPIAyde NORIEGA MIXING AND MOLDING MACHINE OPERATOR-COLLEGE TEACHER-C Unavailable Unava ilable KOAyde JOSE MIXING AND MOLDING MACHINE OPERATOR-COLLEGE TEACHER-C Unavailable Unava ilable KOAyde JOSE APRN-COLLEGE TEACHER-C Unavailable Unava ilable Ayde HOWARD MIXING AND MOLDING MACHINE OPERATOR-COLLEGE TEACHER-C Unavailable Unava ilable KOAyde JOSE MIXING AND MOLDING MACHINE OPERATOR-COLLEGE TEACHER-C Unavailable Unava ilable KOPIDLANSKY, Ayde LOVELL MIXING AND MOLDING MACHINE OPERATOR-COLLEGE TEACHER-C Unavailable Unava ilable KOPIDLANSKY, Ayde LOVELL MIXING AND MOLDING MACHINE OPERATOR-COLLEGE TEACHER-C Unavailable Unava ilable KOPIDLANSKY, Ayde LOVELL MIXING AND MOLDING MACHINE OPERATOR-COLLEGE TEACHER-C Unavailable Unava ilable KOPIDLANSKY, Ayde LOVELL APRN-COLLEGE TEACHER-C Unavailable Unava ilable KOPIDLANSKY, Ayde LOVELL APRN-COLLEGE TEACHER-C Unavailable Unava ilable KOPIDLANSKY, Ayde LOVELL MIXING AND MOLDING MACHINE OPERATOR-COLLEGE TEACHER-C Unavailable Unava ilable KOPIDLANSKY, Ayde LOVELL MIXING AND MOLDING MACHINE OPERATOR-COLLEGE TEACHER-C Unavailable Unava ilable KOPIDLANSKY, Ayde LOVELL APRN-COLLEGE TEACHER-C Unavailable Unava ilable KOPIDLANSKY, Ayde LOVELL APRN-COLLEGE TEACHER-C Unavailable Unava ilable KOPIDLANSKY, Ayde LOVELL APRN-COLLEGE TEACHER-C Unavailable Unava ilable KOPIDLANSKY, Ayde LOVELL APRN-COLLEGE TEACHER-C Unavailable Unava ilable KOPIDLANSKY, Ayde LOVELL APRN-COLLEGE TEACHER-C Unavailable Unava ilable KOPIDLANSKY, Ayde LOVELL APRN-COLLEGE TEACHER-C Unavailable Unava ilable KOPIDLANSKY, Ayde LOVELL APRN-COLLEGE TEACHER-C Unavailable Unava ilable KOPIDLANSKY, Ayde LOVELL APRN-COLLEGE TEACHER-C Unavailable Unava ilable KOPIDLANSKY, Ayde LOVELL MIXING AND MOLDING MACHINE OPERATOR-COLLEGE TEACHER-C Unavailable Unava ilable Antonietta Meraz Unavailable Unavailable CORY BAGLEY Unavailable Unavailable Hamo, M Delia HOGSHEAD HEAD MATCHER Unavailable Unavailable Hamo, M Delia HOGSHEAD HEAD MATCHER Unavailable Unavailable Hamo, M Delia HOGSHEAD HEAD MATCHER Unavailable Unavailable Hamo, M Delia HOGSHEAD HEAD MATCHER Unavailable Unavailable Hamo, M Delia HOGSHEAD HEAD MATCHER Unavailable Unavailable Hamo, M Delia HOGSHEAD HEAD MATCHER Unavailable Unavailable Hamo, M Delia HOGSHEAD HEAD MATCHER Unavailable Unavailable Hamo, M Delia HOGSHEAD HEAD MATCHER Unavailable Unavailable Hamo, M Delia HOGSHEAD HEAD MATCHER Unavailable Unavailable Hamo, M Delia HOGSHEAD HEAD MATCHER Unavailable Unavailable Hamo, M Delia HOGSHEAD HEAD MATCHER Unavailable Unavailable Hamo, M Delia HOGSHEAD HEAD MATCHER Unavailable Unavailable Hamo, M Delia HOGSHEAD HEAD MATCHER Unavailable Unavailable Hamo, M Delia HOGSHEAD HEAD MATCHER Unavailable Unavailable Hamo, M Delia HOGSHEAD HEAD MATCHER Unavailable Unavailable Hamo, M Delia HOGSHEAD HEAD MATCHER Unavailable Unavailable Hamo, M Delia HOGSHEAD HEAD MATCHER Unavailable Unavailable Hamo, M Delia HOGSHEAD HEAD MATCHER Unavailable Unavailable Hamo, M Delia HOGSHEAD HEAD MATCHER Unavailable Unavailable Hamo, M Delia HOGSHEAD HEAD MATCHER Unavailable Unavailable Hamo, M Delia HOGSHEAD HEAD MATCHER Unavailable Unavailable Leigh Ann LEMONSEW DO Unavailable [phone] Leigh Ann LEMONS LINDSAY DO Unavailable [phone] Leigh Ann LEMONS LINDSAY DO Unavailable [phone] Leigh Ann LEMONS LINDSAY DO Unavailable [phone] Leigh Ann LEMONS LINDSAY DO Unavailable [phone] Leigh Ann LEMONS LINDSAY DO Unavailable [phone] Leigh Ann LEMONS LINDSAY DO Unavailable [phone] Leigh Ann LEMONS LINDSAY DO Unavailable [phone] Leigh Ann LEMONS LINDSAY DO Unavailable [phone] Leigh Ann LEMONS LINDSAY DO Unavailable [phone] Leigh Ann LEMONS LINDSAY DO Unavailable [phone] Leigh Ann LEMONS LINDSAY DO Unavailable [phone] Leigh Ann LEMONS LINDSAY DO Unavailable [phone] Leigh Ann LEMONS ILNDSAY DO Unavailable [phone] Leigh Ann LEMONS LINDSAY DO Unavailable [phone] Leigh Ann LEMONS LINDSAY DO Unavailable [phone] Leigh Ann LEMONS LINDSAY DO Unavailable [phone] Leigh Ann LEMONS LINDSAY DO Unavailable [phone] Leigh Ann LEMONS LINDSAY DO Unavailable [phone] Leigh Ann LEMONS LINDSAY DO Unavailable [phone] Leigh Ann LEMONS LINDSAY DO Unavailable [phone] Kaleigh Varela MD Unavailable Unavailable DiBella, Kaleigh Bustillos MD [...] Morales MD, FACS Unavailable Unavailable Draper Gerber, Lolyd Morales MD, FACS Unavailable Unavailable Draper Gerber, [...] EVE, CASH CHERRY Unavailable Unavailable EVE, CASH CHRERY Unavailable Unavailable EVE, CASH CHERRY Unavailable Unavailable [...] Church DO Unavailable Unavailable Bender, L Anum HOGSHEAD HEAD MATCHER Unavailable Unavailable Bender, L Anum HOGSHEAD HEAD MATCHER Unavailable Unavailable Bender, L Anum HOGSHEAD HEAD MATCHER Unavailable Unavailable Bender, L Anum HOGSHEAD HEAD MATCHER Unavailable Unavailable Bender, L Anum HOGSHEAD HEAD MATCHER Unavailable Unavailable Bender, L Anum HOGSHEAD HEAD MATCHER Unavailable Unavailable Bender, L Anum HOGSHEAD HEAD MATCHER Unavailable Unavailable Bender, L Anum HOGSHEAD HEAD MATCHER Unavailable Unavailable Bender, L Anum HOGSHEAD HEAD MATCHER Unavailable Unavailable Bender, L Anum HOGSHEAD HEAD MATCHER Unavailable Unavailable Bender, L Anum HOGSHEAD HEAD MATCHER Unavailable Unavailable Bender, L Anum HOGSHEAD HEAD MATCHER Unavailable Unavailable Bender, L Anum HOGSHEAD HEAD MATCHER Unavailable Unavailable Bender, L Anum HOGSHEAD HEAD MATCHER Unavailable Unavailable Bender, L Anum HOGSHEAD HEAD MATCHER Unavailable Unavailable Bender, L Anum HOGSHEAD HEAD MATCHER Unavailable Unavailable Bender, L Anum HOGSHEAD HEAD MATCHER Unavailable Unavailable Bender, L Anum HOGSHEAD HEAD MATCHER Unavailable Unavailable Bender, L Anum HOGSHEAD HEAD MATCHER Unavailable Unavailable Bender, L Anum HOGSHEAD HEAD MATCHER Unavailable Unavailable Bender, L Anum HOGSHEAD HEAD MATCHER Unavailable Unavailable Bender, L Anum HOGSHEAD HEAD MATCHER Unavailable Unavailable Bender, L Anum HOGSHEAD HEAD MATCHER Unavailable Unavailable Bender, L Anum HOGSHEAD HEAD MATCHER Unavailable Unavailable Bender, L Anum HOGSHEAD HEAD MATCHER Unavailable Unavailable Bender, L Anum HOGSHEAD HEAD MATCHER Unavailable Unavailable Bender, L Anum HOGSHEAD HEAD MATCHER Unavailable Unavailable Bender, L Anum HOGSHEAD HEAD MATCHER Unavailable Unavailable Bender, L Anum HOGSHEAD HEAD MATCHER Unavailable Unavailable Bender, L Anum HOGSHEAD HEAD MATCHER Unavailable Unavailable Bender, L Anum HOGSHEAD HEAD MATCHER Unavailable Unavailable Bender, L Anum HOGSHEAD HEAD MATCHER Unavailable Unavailable Bender, L Anum HOGSHEAD HEAD MATCHER Unavailable Unavailable Bender, L Anum HOGSHEAD HEAD MATCHER Unavailable Unavailable Bender, L Anum HOGSHEAD HEAD MATCHER Unavailable Unavailable Bender, L Anum HOGSHEAD HEAD MATCHER Unavailable Unavailable Bender, L Anum HOGSHEAD HEAD MATCHER Unavailable Unavailable Bender, L Anum HOGSHEAD HEAD MATCHER Unavailable Unavailable Bender, L Anum HOGSHEAD HEAD MATCHER Unavailable Unavailable Bender, L Anum HOGSHEAD HEAD MATCHER Unavailable Unavailable Bender, L Anum HOGSHEAD HEAD MATCHER Unavailable Unavailable Bender, L Anum HOGSHEAD HEAD MATCHER Unavailable Unavailable Bender, L Anum HOGSHEAD HEAD MATCHER Unavailable Unavailable Bender, L Anum HOGSHEAD HEAD MATCHER Unavailable Unavailable Qandah, Basem Yan Aziz DO [...] Unavailable Webber, N Zuri PA-C Unavailable Unavailable Méndez, Angelique Duran MD Unavailable Unavailable Méndez, Angelique Duran MD Unavailable Unavailable Méndez, Angelique Duran MD Unavailable Unavailable Méndez, Angelique Duran MD Unavailable Unavailable Méndez, Angelique Duran MD Unavailable Unavailable Méndez, Angelique Duran MD Unavailable Unavailable Méndez, Angelique Duran MD Unavailable Unavailable Méndez, Angelique Duran MD Unavailable Unavailable Méndez, Angelique Duran MD Unavailable Unavailable Méndez, Angelique Duran MD Unavailable Unavailable Méndez, Angelique Duran MD Unavailable Unavailable Méndez, Angelique Duran MD Unavailable Unavailable Méndez, Angelique Duran MD Unavailable Unavailable Méndez, Angelique Duran MD Unavailable Unavailable Méndez, Angelique Duran MD Unavailable Unavailable Méndez, Angelique Duran MD Unavailable Unavailable Méndez, Angelique Duran MD Unavailable Unavailable Méndez, Angelique Duran MD Unavailable Unavailable Méndez, Angelique Duran MD Unavailable Unavailable Méndez, Angelique Duran MD Unavailable Unavailable Méndez, Angelique Duran MD Unavailable Unavailable Méndez, Angelique Duran MD Unavailable Unavailable Méndez, Angelique Duran MD Unavailable Unavailable Méndez, Angelique Duran MD Unavailable Unavailable Méndez, Angelique Duran MD Unavailable Unavailable Méndez, Angelique Duran MD Unavailable Unavailable Méndez, Angelique Duran MD Unavailable Unavailable Méndez, Angelique Duran MD Unavailable Unavailable Méndez, Angelique Duran MD Unavailable Unavailable Méndez, Angelique Duran MD Unavailable Unavailable Méndez, Angelique Duran MD Unavailable Unavailable Méndez, Angelique Duran MD Unavailable Unavailable Méndez, Angelique Duran MD Unavailable Unavailable Méndez, Angelique Duran MD Unavailable Unavailable Méndez, Angelique Duran MD Unavailable Unavailable Méndez, Angelique Duran MD Unavailable Unavailable Méndez, Angelique Duran MD Unavailable Unavailable Méndez, Angelique Duran MD Unavailable Unavailable Méndez, Angelique Duran MD Unavailable Unavailable Méndez, Rambhai Roger MD Unavailable Unavailable Méndez, Rambhai Roger MD Unavailable Unavailable Méndez, Rambhai Roger MD Unavailable Unavailable Méndez, Rambhai Roger MD Unavailable Unavailable Méndez, Rambhai Roger MD Unavailable Unavailable Méndez, Rambhai Roger MD Unavailable Unavailable Méndez, Rambhai Roger MD Unavailable Unavailable Méndez, Rambhai Roger MD Unavailable Unavailable Méndez, Rambhai Roger MD Unavailable Unavailable Méndez, Rambhai Roger MD Unavailable Unavailable Méndez, Rambhai Roger MD Unavailable Unavailable Méndez, Rambhai Roger MD Unavailable Unavailable Méndez, Rambhai Roger MD Unavailable Unavailable Méndez, Rambhai Roger MD Unavailable Unavailable Méndez, Rambhai Roger MD Unavailable Unavailable Méndez, Rambhai Roger MD Unavailable Unavailable Méndez, Rambhai Roger MD Unavailable Unavailable Méndez, Rambhai Roger MD Unavailable Unavailable Carangelo, Ronal PA Unavailable Unavailable [...] is protected by Article 27-F of the [facility] Public Health law. If you continue you may have access to information: Regarding HIV / AIDS; Provided by facilities licensed or operated by the [facility] Office of Mental Health; or Provided by the [facility] Office for People With Developmental Disabilities. If such information is present, then the following [facility] mandated warning applies: This information has [...] law may result in a fine or mcfp sentence or both. A general authorization for the release of medical or other information is NOT sufficient authorization for further disc losure. Allergies and Adverse Reactions Type Description Substance Reaction Status Data Source(s ) Drug allergy rabeprazole rabeprazole [facility] Drug allergy levofloxacin Levofloxacin [facility] Drug allergy meperidine meperidine [facility] Drug allergy flurazepam flurazepam [facility] Drug allergy nitrofurantoin nitrofurantoin [facility] Drug allergy codeine Codeine [facility] Drug allergy diazepam diazepam [facility] Drug allergy Sulfa (Sulfonamide Antibiotics) Sulfa (Sulfonamide Ant ibiotics) [facility] Drug allergy Macrobid Macrobid Active [place] (Harman Gerber [facility]) Drug allergy Macrobid Macrobid Active [facility] (Harman Gerber MD [facility]) Drug allergy Valium Valium Active [place] (Harman Gerber MD [facility]) Drug allergy Valium Valium Active [place] (Da angela Gerber MD [facility]) Drug allergy Codeine and Related Codeine and Related Activ e [facility] (Andrew Gerber MD [facility]) Drug allergy Sulfa Antibiotics Sulfa Antibiotics Active [facility] (Andrew Gerber MD [facility]) Drug allergy Codeine and Related Codeine and Related Activ e [facility] (Andrew Gerber MD [facility]) Drug allergy Sulfa Antibiotics Sulfa Antibiotics Active [place] (Andrew Gerber MD [facility]) Drug allergy Valium Diazepam contraindications Active [facility] ([facility]) Drug allergy Codeine Sulfate Drug allergy Anaphylaxis Active [facility]CW 1 ([facility]) Drug Allergy Drug Allergy [facility] ([facility]) Family History Family Member Name Family Member Gender Family Member Status Date o f Status Description Data Source(s) Unknown Condition [facility] Unknown Condition [facility] Unknown Condition [facility] Unknown Condition [facility] Unknown Condition [facility] Condition [facility] Condition [facility] Condition [facility] Condition [facility] Condition [facility] Condition [facility] Condition [facility] Condition [facility] Condition [facility] Condition [facility] Condition [facility] Condition [facility] Condition [facility] Condition [facility] Condition [facility] Condition [facility] Condition [facility] Condition [facility] Condition [facility] Condition [facility] Condition [facility] Condition [facility] Condition [facility] Condition [facility] Condition [facility] Condition [facility] Condition [facility] Condition [facility] Condition [facility] Condition [facility] Condition [facility] Condition [facility] Condition [facility] Unknown Condition [facility] Unknown Condition [facility] Condition [facility] Condition [facility] Condition [facility] Condition [facility] Unknown Condition [facility] Condition [facility] Condition [facility] Condition [facility] Unknown Condition [facility] Condition [facility] Unknown Condition [facility] Unknown Condition [facility] Unknown Condition [facility] Unknown Condition [facility] Unknown Condition [facility] Unknown Condition [facility] Unknown Condition [facility] Unknown Condition [facility] Condition [facility] Unknown Condition [facility] Unknown Condition [facility] Condition [facility] Condition [facility] Condition [facility] Unknown Condition [facility] Unknown Condition [facility] Unknown Condition [facility] Unknown Condition [facility] Unknown Condition [facility] Unknown Condition [facility] Condition [facility] Condition [facility] Condition [facility] Condition [facility] Condition [facility] Condition [facility] Condition [facility] Condition [facility] Condition [facility] Unknown Condition [facility] Unknown Condition [facility] Unknown Condition [facility] Unknown Condition [facility] Unknown Condition [facility] Unknown Condition [facility] Unknown Condition [facility] Unknown Condition [facility] Unknown Condition [facility] Condition [facility] Condition [facility] Condition [facility] Condition [facility] Unknown Condition [facility] Unknown Condition [facility] Unknown Condition [facility] Unknown Condition [facility] Unknown Condition [facility] Encounters Encounter Providers Location Date Indications Data Source(s ) Outpatient<td ID="encounterTypeDescripti onID1">1 WK PREOP FOR SURGERY</td><td>Lindsay Lemons DO</td><td>Andrew Samuel MD [facility]</td><td>09/08/2020</td><td>12:13PM</td><td>1:11PM</td><td><content ID="encounterDiagnosisID1-0">Cataract Senile Nuclear</content></td> Attender: LINDSAY Galvan MD [facility] 09/08/2020 12:13:00 PM EST - 09/08/2020 01:11:00 PM EST Cataract Senile Nuclear [place] (Andrew lindsey MD [facility]) Cataract Senile Nuclear Outpatient<td ID="encounterTypeDescripti onID0">Extracapsular cataract removal w/IOL implant</td><td>Lindsay Lemons DO</td><td>[facility]</td><td>09/16/2020</td><td>09/08/2020 7:30AM</td><td>7:12AM</td><td></td> Attender: LINDSAY LEMONS DO [facility] 10/2020 07:30:00 AM EST - 09/16/2020 07:12:00 AM EST [facility] (Andrew Gerber MD [facility]) Outpatient Attender: Roger Méndez MD [facility] 09/2020 12:00:00 PM EST [facility] ([facility]) Outpatient<td ID="encounterTypeDescripti onID3">TESTING - VISUAL FIELD & OCT</td><td>Lindsay Lemons DO</td><td>Andrew Samuel MD [facility]</td><td>08/19/2020</td><td>12:48PM</td><td>1:31PM</td><td><content ID="encounterDiagnosisID3-0">Rheumatoid Arthritis Rf Positive</content>, <content ID="encounterDiagnosisID3-1">Carpenter/Labor Use of Other Medications</content>, <content ID="encounterDiagnosisID3- 2">Stroke/cerebrovascular Accident</content></td> Attender: LINDSAY Galvan MD [facility] 08/19/2020 12:48:00 PM EST - 08/19/2020 01:31:00 PM EST Stroke/cerebrovascular AccidentLong Term Use of Other MedicationsRheumatoid Arthritis Rf Positive [place] (Andrew Gerber MD [facility]) Stroke/cerebrovascular Accident Care Home Use of Other Medications Rheumatoid Arthritis Rf Positive Outpatient<td ID="encounterTypeDescripti onID2">OCT RETINA</td><td></td><td>Andrew Samuel MD [facility]</td><td>08/19/2020</td><td>12:48PM</td><td>1:31PM</td><td></td> Andrew Samuel MD [facility] 08/19/2020 12:48:00 PM EST - 08/19/2020 01:31:00 PM EST [place] (Andrew Gerber MD [facility]) Outpatient<td ID="encounterTypeDescripti onID4">Cataract Evaluation</td><td>Lindsay Lemons DO</td><td>Andrew Samuel MD [facility]</td><td>08/10/2020</td><td>8:23AM</td><td>9:12AM</td><td><content ID="encounterDiagnosisID4-0">Cataract Senile Nuclear</content>, <content ID="encounterDiagnosisID4-1">Dry Eye Syndrome</content>, <content ID="encounterDiagnosisID4-2">Carpenter/Labor Use of Other Medications</content>, <content ID="encounterDiagnosisID4-3">Rheumatoid Arthritis Rf Positive</content>, <content ID="encounterDiagnosisID4-4">Sicca Syndrome with Keratoconjunctivitis</content>, <content ID="encounterDiagnosisID4- 5">Stroke/cerebrovascular Accident</content></td> Attender: LINDSAY Galvan MD [facility] 08/10/2020 08:23:00 AM EST - 08/10/2020 09:12:00 AM EST Stroke/cerebrovascular AccidentSicca Syn drome with KeratoconjunctivitisRheumatoid Arthritis Rf PositiveLong Term Use of Other MedicationsDry Eye SyndromeCataract Senile Nuclear [place] (Andrew Gerber MD [facility]) Stroke/cerebrovascular Accident Sicca Syndrome with Keratoconjunctivitis Rheumatoid Arthritis Rf Positive Care Home Use of Other Medications Dry Eye Syndrome Cataract Senile Nuclear Unknown [address] [facility], [facility] [address] 07/26/2020 12:00:00 AM EST eCW1 ([facility]) Unknown [address] [facility], [place] [address] 07/14/2020 12:00:00 AM EST eCW1 ([facility]) Outpatient Attender: Keri Cantorer: Keri Church DO 07/13/2020 12:36:00 PM EST [facility] [facility] UNSTEADY GAIT Unknown [address] [facility], [facility] [address] 07/13/2020 12:00:00 AM EST eCW1 ([facility]) Outpatient Attender: Alicja Vick Office 07/06/2020 09:00:00 A Antonietta EST ZOHRA ([facility]) Outpatient Attender: MAGY Vasquez r: Keri Church DO 07/02/2020 10:50:00 AM EST - 07/02/2020 11:44:00 AM EST [facility] Outpatient Attender: Keri Nelson: Keri Church DO 06/29/2020 11:05:00 AM EST - 06/29/2020 12:52:00 PM EST [facility] Emergency Attender: Apollo Varela MD 05:06:00 PM EST - 06/27/2020 09:00:[address] [facility] FALL Patient discharged. Outpatient Attender: MAGY Vasquez r: Keri Church DO 06/24/2020 11:13:00 AM EST - 06/24/2020 12:25:00 PM EST [facility] Emergency Attender: Apollo Valente MD 06/06 11:47:00 AM EST - 06/15/2020 01:26:00 PM EST FALL [facility] FALL Patient discharged. Outpatient Attender: Keri Hardyerrer: Keri Church DO 06/14/2020 10:09:00 AM EST - 06/14/2020 11:15:00 AM EST [facility] Outpatient Attender: Keri Church DO 06/11/2020 11:26 :00 AM EST D72.820,I10,R73.03,M81.0 [facility] D72.820,I10,R73.03,M81.0 Outpatient Attender: Alicja Coto DO [place] Office 05/31/2020 12:45:00 P M EDT MEDENT ([facility]) Outpatient Attender: Kednra Santiagoender: DAGOBERTO MÉNDEZ 05/10/2020 12:39:00 PM EDT LYMPHOCYTOSIS [facility] LYMPHOCYTOSIS Emergency Attender: Apollo Valente MD 04/07 08:57:00 AM EDT - 05/02/2020 10:17:00 AM EDT NECK PAIN [facility] NECK PAIN Patient discharged. Outpatient<td ID="encounterTypeDescripti onID5">VISUAL FIELD 10-2</td><td>Andrew Samuel MD, FACS</td><td>Andrew Samuel MD [facility]</td><td>04/26/2020</td><td>12:12PM</td><td>1:01PM</td><td><content ID="encounterDiagnosisID5-0">Rheumatoid Arthritis Rf Positive</content>, <content ID="encounterDiagnosisID5-1">Care Home Use of Other Medications</content></td> Attender: Andrew Gerber MD, FACS Andrew Samuel MD [facility] 04/26/2020 12:12:00 PM EDT - 04/26/2020 01:01:00 PM ED T Carpenter/Labor Use of Other MedicationsRheumatoid Arthritis Rf Positive [place] (Andrew Gerber MD [facility]) Care Home Use of Other Medications Rheumatoid Arthritis Rf Positive Outpatient Attender: Ronal ENG [place] Office 04/23/2020 10:15:00 AM EDT [facility] ([facility]) Outpatient Attender: Anum Bender NPReferrer: Keri moon DO 03/30/2020 03:15:00 PM EDT - 03/30/2020 04:31:00 PM EDT [facility] Outpatient Attender: Keri Church DO 03/30/2020 02:57 :00 PM EDT S99.929A,T14.13XXA,R52 [facility] S99.929A,T14.13XXA,R52 Outpatient<td ID="encounterTypeDescripti onID6">TRIAGE NEW PATIENT WITH REFERRAL</td><td>Andrew Samuel MD, FACS</td><td>Andrew Samuel MD [facility]</td><td>03/26/2020</td><td>12:23PM</td><td>1:44PM</td><td><content ID="encounterDiagnosisID6-0">Carpenter/Labor Use of Other Medications</content>, <content ID="encounterDiagnosisID6-1">Sicca Syndrome with Keratoconjunctivitis</content>, <content ID="encounterDiagnosisID6-2">Rheumatoid Arthritis Rf Positive</content>, <content ID="encounterDiagnosisID6-3">Dry Eye Syndrome</content>, <content ID="encounterDiagnosisID6-4">Cataract Senile Nuclear</content>, <content ID="encounterDiagnosisID6-5">Vitreous Disorders Degeneration</content>, <content ID="encounterDiagnosisID6-6">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</content></td> Attender: Andrew Gerber MD, FACS Andrew Samuel MD [facility] 03/26/2020 12:23:00 PM EDT - 03/26/2020 01:44:00 PM EDT 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Vitreous Disorders DegenerationCataract Senile NuclearDry Eye SyndromeRheumatoid Arthritis Rf PositiveSicca Syndrome with Keratoconjunctivitis Care Home Use of Other Medications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Vitreous Disorders DegenerationCataract Senile NuclearDry Eye SyndromeRheumatoid Arthritis Rf PositiveSicca Syndrome with KeratoconjunctivitisLong Term Use of Other Medications [place] (Andrew Gerber MD 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 Dry Eye Syndrome Rheumatoid Arthritis Rf Positive Sicca Syndrome with Keratoconjunctivitis Carpenter/Labor Use of Other Medications Outpatient Attender: Keri Church DOReferrer: Keri Church DO 03/08/2020 10:12:00 AM EDT - 03/08/2020 11:34:00 AM EDT [facility] Outpatient Attender: Delia Marquez [facility] 03/02 10:00:00 AM EDT [facility] ([facility]) Outpatient Attender: CASH PRADO MD Main office [facility] 02/26/2020 11:30:00 AM EDT MEDENT ([facility]) Outpatient Attender: Anum Bender NPReferrer: Keri moon DO 02/20/2020 12:57:00 PM EDT - 02/20/2020 01:29:00 PM EDT [facility] Outpatient Attender: Ronal ENG [place] [facility] 02/13/2020 02:00:00 PM EDT MED[facility] ([facility]) Outpatient Attender: Keri Church DO 02/05/2020 12:56:00 PM EDT D68.61,Z79.01 [facility] D68.61,Z79.01 Outpatient Attender: Alicja Coto DO [place] [facility] 01/16/2020 10:15:00 A M EDT MED[facility] ([facility]) Outpatient Attender: Alicja Coto DO 12/31/2019 03:17 :00 PM EDT OTHER CERVICAL DISC DEGENERATION, UNSP CERVICAL RE [facility] OTHER CERVICAL DISC DEGENERATION, UNSP C ERVICAL RE Outpatient Attender: Alicja Coto DO [place] [facility] 12/25/2019 11:00:00 A M EDT MEDENT ([facility]) Outpatient Attender: Keri Church DO 12/22/2019 01:53 :00 PM EDT D72.820,R55,D68.61,M32.9 [facility] D72.820,R55,D68.61,M32.9 Outpatient Attender: Keri Church DO 12/17/2019 12:17:00 PM EDT R55,D68.61,R51 [facility] R55,D68.61,R51 Outpatient Attender: Keri Cantorer: Keri Church DO 12/16/2019 03:53:[address] [facility] Outpatient Attender: CASH PRADO MD Main office - [facility] 12/04/2019 10:45:00 AM EDT MEDKENNEDI ([facility]) Outpatient Attender: Keri Church DO 12/02/2019 10:52:00 AM EDT R51,R55 [facility] R51,R55 Outpatient Attender: Keri Nelson: Keri Church DO 11/25/2019 09:36:00 AM EDT - 11/25/2019 11:01:00 AM EDT [facility] Outpatient Attender: Keri Church DO 11/24/2019 09:01:00 AM EDT K21.9,I10 [facility] K21.9,I10 Outpatient Attender: CASH PRADO MD 11/21/2019 02:5 4:00 PM EDT I10,K21.9,R73.03,M06.9,Z86.73 [facility] I10,K21.9,R73.03,M06.9,Z86.73 Outpatient Attender: CASH PRADO MD Main office - [facility] 11/21/2019 02:00:00 PM EDT MEDKENNEDI ([facility]) Outpatient Attender: Delia Marquez NP [facility] 11/17 09:30:00 AM EDT [facility] ([facility]) Outpatient Attender: CASH PRADO MD Main office - [facility] 11/17/2019 10:00:00 AM EDT MEDENT ([facility]) Outpatient Attender: ROSS KABA MD 11/11/2019 07:48: 00 AM EDT SYNCOPE AND COLLAPSE,HTN,CVA [facility] SYNCOPE AND COLLAPSE,HTN,CVA Outpatient Attender: ROSS KABA MD 11/04/2019 12:51: 00 PM EDT CHRONOTROPIC INCOMPETENCE [facility] CHRONOTROPIC INCOMPETENCE Outpatient Attender: Zuri Webber PA-C [facility] 11/03/2019 03:00:00 PM EDT [facility] ([facility]) Outpatient Attender: Keri Church DO 10/28/2019 12:28 :[address] STN W/O; S/P FALL , HEADACHE, ON ANTICOAGULANT [facility] CT. STN W/O; S/P FALL , HEADACHE, ON ANT ICOAGULANT Outpatient Attender: Keri Cantorer: Keri Church DO 10/28/2019 10:59:00 AM EDT - 10/28/2019 12:04:00 PM EDT [facility] Emergency Attender: Apollo Valente MD 10/04 03:20:00 PM EDT - 10/22/2019 06:56:00 PM EDT WEAKNESS, HIGH BLOOD PRESSURE [facility] pital WEAKNESS, HIGH BLOOD PRESSURE Patient discharged. Outpatient Attender: Keri Nelson: Keri Church DO 10/21/2019 01:32:00 PM EDT - 10/21/2019 02:44:00 PM EDT [facility] Outpatient Attender: CORY BAGLEYConsultant: KERI Love 10/07/2019 10:39:42 AM EST - 10/23/2019 12:17:00 PM EDT [facility] Patient discharged. [facility] [address] [place] [phone] 09/30/2019 12:00:00 AM EST eCW1 ([facility]) Outpatient Attender: CORY BAGLEY 09/08/2019 01:3 8:00 PM EST PRIMARY OA INVOLVING MULTIPLE JOINTS [facility] PRIMARY OA INVOLVING MULTIPLE JOINTS Outpatient [address] [facility] [address] 09/05/2019 12:00:00 AM EST eCW1 ([facility]) Outpatient Attender: Keri Nelson: Keri Church DO 07/29/2019 10:08:00 AM EST [facility] EVAL[facility] Immunizations Vaccine Date Status Description Data Source(s) IIV3. This is one of two codes replacing CVX 15, which is being retired. 06/14/2020 12:00:00 AM EST completed influenza vaccine, inactivated [facility] IIV3. This is one of two codes replacing CVX 15, which is being retired. 06/14/2020 12:00:00 AM EST completed influenza vaccine, inactivated [facility] IIV3. This is one of two codes replacing CVX 15, which is being retired. 06/14/2020 12:00:00 AM EST completed influenza vaccine, inactivated [facility] IIV3. This is one of two codes replacing CVX 15, which is being retired. 06/14/2020 12:00:00 AM EST completed influenza vaccine, inactivated [facility] IIV3. This is one of two codes replacing CVX 15, which is being retired. 06/14/2020 12:00:00 AM EST completed influenza vaccine, inactivated [facility] Medications Medication Brand Name Start Date Product Form Dose Route Admi nistrative Instructions Pharmacy Instructions Status Indications Reaction Description Data Source(s) nepafenac 3 MG/ML Ophthalmic Suspension [Ilevro] Ilevro 0.3% Ophthalmic Suspension Ilevro 0.3% Ophthalmic Suspension 09/08/2020 12:00:00 AM EST aborted nepafenac 3 MG/ML Ophthalmic Suspension [Ilevro] [place] (Andrew Gerber MD [facility]) difluprednate 0.5 MG/ML Ophthalmic Suspe nsion [Durezol] Durezol 0.05% Ophthalmic Emulsion Durezol 0.05% Ophthalmic Emulsion 09/08/2020 12:00:00 AM EST aborted difluprednate 0.5 MG/ML Opht halmic Suspension [Durezol] [place] (Andrew Gerber MD [facility]) moxifloxacin 5 MG/ML Ophthalmic Solution Moxifloxacin HCl 0.5% Ophthalmic Solution Moxifloxacin HCl 0.5% Ophthalmic Solution 09/08/2020 12:00:00 AM EST aborted moxifloxacin 5 MG/ML Oph thalmic Solution [place] (Andrew Gerber MD [facility]) moxifloxacin 5 MG/ML Ophthalmic Solution Moxifloxacin HCl 0.5% Ophthalmic Solution Moxifloxacin HCl 0.5% Ophthalmic Solution 09/08/2020 12:00:00 AM EST active moxifloxacin 5 MG/ML Oph thalmic Solution [place] (Andrew Gerber MD [facility]) Inveltys 1% Ophthalmic Suspension Inveltys 1% Ophthalmic Sue pension 09/08/2020 12:00:00 AM EST active loteprednol etabonate 10 MG/ML Ophthalmic Suspension [Inveltys] [place] (Andrew Gerber MD [facility]) BromSite 0.075% Ophthalmic Solution BromSite 0.075% Ophthalm ic Solution 09/08/2020 12:00:00 AM EST active bromfenac 0.75 MG/ML Ophthalmic Solution [Bromsite] [place] (Andrew Gerber MD [facility]) moxifloxacin 5 MG/ML Ophthalmic Solution Moxifloxacin HCl 0.5% Ophthalmic Solution Moxifloxacin HCl 0.5% Ophthalmic Solution 09/08/2020 12:00:00 AM EST aborted moxifloxacin 5 MG/ML Oph thalmic Solution [place] (Andrew Gerber MD [facility]) Amoxicillin 875 MG / Clavulanate 125 MG Oral Tablet Am oxicillin-Pot Clavulanate Amoxicillin-Pot Clavulanate 06/24/2020 12:35:16 PM EST 1 TAB active [facility] Amoxicillin 875 MG / Clavulanate 125 MG Oral Tablet Am oxicillin-Pot Clavulanate Amoxicillin-Pot Clavulanate 06/24/2020 12:35:16 PM EST 1 TAB active [facility] Amoxicillin 875 MG / Clavulanate 125 MG Oral Tablet Am oxicillin-Pot Clavulanate Amoxicillin-Pot Clavulanate 06/24/2020 12:35:16 PM EST 1 TAB active [facility] Adhesive Tape 06/24/2020 12:34:13 PM EST 0 acti [facility] Adhesive Tape 06/24/2020 12:34:13 PM EST 0 acti ve [facility] Adhesive Tape 06/24/2020 12:34:13 PM EST 0 acti ve [facility] Gauze Bandage (Band-Aid Rolled Gauze) 2 X 2.5 "-yard bandage 06/24/2020 12:32:57 PM EST 0 active L [facility] Gauze Bandage (Band-Aid Rolled Gauze) 2 X 2.5 "-yard bandage 06/24/2020 12:32:57 PM EST 0 active L [facility] Gauze Bandage (Band-Aid Rolled Gauze) 2 X 2.5 "-yard bandage 06/24/2020 12:32:57 PM EST [address] [facility] Adhesive Bandage (Telfa Amd) 4 X 5 " bandage 06/24/2020 12:3 1:36 PM EST 0 active [facility] Adhesive Bandage (Telfa Amd) 4 X 5 " bandage 06/24/2020 12:3 1:36 PM EST 0 active [facility] Adhesive Bandage (Telfa Amd) 4 X 5 " bandage 06/24/2020 12:3 1:36 PM EST 0 active [facility] Mupirocin 0.02 MG/MG Topical Ointment Mupirocin 06/24/2020 12:31 :01 PM EST 1 APPLIC active [facility] Mupirocin 0.02 MG/MG Topical Ointment Mupirocin 06/24/2020 12:31 :01 PM EST 1 APPLIC active [facility] Mupirocin 0.02 MG/MG Topical Ointment Mupirocin 06/24/2020 12:31 :01 PM EST 1 APPLIC active [facility] Cholecalciferol 5000 UNT Oral Capsule Cholecalciferol (Vitamin D3) Cholecalciferol (Vitamin D3) 06/14/2020 05:16:27 PM EST 125 MCG active [facility] Cholecalciferol 5000 UNT Oral Capsule Cholecalciferol (Vitamin D3) Cholecalciferol (Vitamin D3) 06/14/2020 05:16:27 PM EST 125 MCG active [facility] Cholecalciferol 5000 UNT Oral Capsule Cholecalciferol (Vitamin D3) Cholecalciferol (Vitamin D3) 06/14/2020 05:16:27 PM EST 125 MCG active [facility] Cholecalciferol 5000 UNT Oral Capsule Cholecalciferol (Vitamin D3) Cholecalciferol (Vitamin D3) 06/14/2020 05:16:27 PM EST 125 MCG active [facility] Cholecalciferol 5000 UNT Oral Capsule Cholecalciferol (Vitamin D3) Cholecalciferol (Vitamin D3) 06/14/2020 05:16:27 PM EST 125 MCG active [facility] rifaximin 550 MG Oral Tablet Rifaximin Rifaximin 06/14/2020 10:3 4:48 AM EST 550 MG active [facility] rifaximin 550 MG Oral Tablet Rifaximin Rifaximin 06/14/2020 10:3 4:48 AM EST 550 MG completed [facility] rifaximin 550 MG Oral Tablet Rifaximin Rifaximin 06/14/2020 10:3 4:48 AM EST 550 MG completed [facility] rifaximin 550 MG Oral Tablet Rifaximin Rifaximin 06/14/2020 10:3 4:48 AM EST 550 MG [facility] rifaximin 550 MG Oral Tablet Rifaximin Rifaximin 06/14/2020 10:3 4:48 AM EST 550 MG active [facility] rifaximin 550 MG Oral Tablet Rifaximin Rifaximin 06/14/2020 10:3 4:48 AM EST 550 MG [facility] potassium citrate 5 MEQ Extended Release Oral Tablet P otassium Citrate Potassium Citrate 06/14/2020 10:34:41 AM EST 5 MEQ completed [facility] potassium citrate 5 MEQ Extended Release Oral Tablet P otassium Citrate Potassium Citrate 06/14/2020 10:34:41 AM EST 5 MEQ completed [facility] potassium citrate 5 MEQ Extended Release Oral Tablet P otassium Citrate Potassium Citrate 06/14/2020 10:34:41 AM EST 5 MEQ completed [facility] potassium citrate 5 MEQ Extended Release Oral Tablet P otassium Citrate Potassium Citrate 06/14/2020 10:34:41 AM EST 5 MEQ active [facility] potassium citrate 5 MEQ Extended Release Oral Tablet P otassium Citrate Potassium Citrate 06/14/2020 10:34:41 AM EST 5 MEQ active [facility] potassium citrate 5 MEQ Extended Release Oral Tablet P otassium Citrate Potassium Citrate 06/14/2020 10:34:41 AM EST 5 MEQ active [facility] Nadolol 20 MG Oral Tablet Nadolol 06/14/2020 10:34:33 AM EST 20 MG active [facility] Nadolol 20 MG Oral Tablet Nadolol 06/14/2020 10:34:33 AM EST 20 MG active [facility] Nadolol 20 MG Oral Tablet Nadolol 06/14/2020 10:34:33 AM EST 20 MG completed [facility] Nadolol 20 MG Oral Tablet Nadolol 06/14/2020 10:34:33 AM EST 20 MG active [facility] Nadolol 20 MG Oral Tablet Nadolol 06/14/2020 10:34:33 AM EST 20 MG completed [facility] Nadolol 20 MG Oral Tablet Nadolol 06/14/2020 10:34:33 AM EST 20 MG completed [facility] Hydroxychloroquine Sulfate 200 MG Oral Tablet Hydroxychloroq uine 06/14/2020 10:34:23 AM EST 200 MG active L [facility] Hydroxychloroquine Sulfate 200 MG Oral Tablet Hydroxychloroq uine 06/14/2020 10:34:23 AM EST 200 MG completed [facility] Hydroxychloroquine Sulfate 200 MG Oral Tablet Hydroxychloroq uine 06/14/2020 10:34:23 AM EST 200 MG active L [facility] Hydroxychloroquine Sulfate 200 MG Oral Tablet Hydroxychloroq uine 06/14/2020 10:34:23 AM EST 200 MG completed [facility] Hydroxychloroquine Sulfate 200 MG Oral Tablet Hydroxychloroq uine 06/14/2020 10:34:23 AM EST 200 MG active L [facility] Hydroxychloroquine Sulfate 200 MG Oral Tablet Hydroxychloroq uine 06/14/2020 10:34:23 AM EST 200 MG completed [facility] Fexofenadine hydrochloride 180 MG Oral Tablet Fexofenadine 06/14/2020 10:34:14 AM EST 180 MG completed [facility] Fexofenadine hydrochloride 180 MG Oral Tablet Fexofenadine 06/14/2020 10:34:14 AM EST 180 MG active [facility] Fexofenadine hydrochloride 180 MG Oral Tablet Fexofenadine 06/14/2020 10:34:14 AM EST 180 MG completed [facility] Fexofenadine hydrochloride 180 MG Oral Tablet Fexofenadine 06/14/2020 10:34:14 AM EST 180 MG completed [facility] Fexofenadine hydrochloride 180 MG Oral Tablet Fexofenadine 06/14/2020 10:34:14 AM EST 180 MG active [facility] Fexofenadine hydrochloride 180 MG Oral Tablet Fexofenadine 06/14/2020 10:34:14 AM EST 180 MG active [facility] rifaximin 550 MG Oral Tablet Rifaximin Rifaximin 06/14/2020 10:1 6:30 AM EST 550 MG completed [facility] rifaximin 550 MG Oral Tablet Rifaximin Rifaximin 06/14/2020 10:1 6:30 AM EST 550 MG completed [facility] rifaximin 550 MG Oral Tablet Rifaximin Rifaximin 06/14/2020 10:1 6:30 AM EST 550 MG completed [facility] rifaximin 550 MG Oral Tablet Rifaximin Rifaximin 06/14/2020 10:1 6:30 AM EST 550 MG completed [facility] rifaximin 550 MG Oral Tablet Rifaximin Rifaximin 06/14/2020 10:1 6:30 AM EST 550 MG completed [facility] rifaximin 550 MG Oral Tablet Rifaximin Rifaximin 06/14/2020 10:1 6:30 AM EST 550 MG completed [facility] duloxetine 30 MG Delayed Release Oral Ca psule Duloxetine (Cymbalta) 30 mg capsule,delayed release(DR/EC) Duloxetine (Cymbalta) 30 mg capsule,martha yed release(DR/EC) 06/14/2020 10:15:16 AM EST 30 MG active [facility] duloxetine 30 MG Delayed Release Oral Ca psule Duloxetine (Cymbalta) 30 mg capsule,delayed release(DR/EC) Duloxetine (Cymbalta) 30 mg capsule,martha yed release(DR/EC) 06/14/2020 10:15:16 AM EST 30 MG active [facility] duloxetine 30 MG Delayed Release Oral Ca psule Duloxetine (Cymbalta) 30 mg capsule,delayed release(DR/EC) Duloxetine (Cymbalta) 30 mg capsule,martha yed release(DR/EC) 06/14/2020 10:15:16 AM EST 30 MG active [facility] duloxetine 30 MG Delayed Release Oral Ca psule Duloxetine (Cymbalta) 30 mg capsule,delayed release(DR/EC) Duloxetine (Cymbalta) 30 mg capsule,martha yed release(DR/EC) 06/14/2020 10:15:16 AM EST 30 MG active [facility] duloxetine 30 MG Delayed Release Oral Ca psule Duloxetine (Cymbalta) 30 mg capsule,delayed release(DR/EC) Duloxetine (Cymbalta) 30 mg capsule,martha yed release(DR/EC) 06/14/2020 10:15:16 AM EST 30 MG active [facility] duloxetine 30 MG Delayed Release Oral Ca psule Duloxetine (Cymbalta) 30 mg capsule,delayed release(DR/EC) Duloxetine (Cymbalta) 30 mg capsule,martha yed release(DR/EC) 06/14/2020 10:15:16 AM EST 30 MG active [facility] Qd 2019-(3yr up)(PF) (flu vac [id number] 36mos up(P F)) 06/14/2020 10:09:07 AM EST 0.5 ML completed [facility] Qd 2019-(3yr up)(PF) (flu vac [id number] 36mos up(P F)) 06/14/2020 10:09:07 AM EST [facility].5 [facility] (flu vac [id number] 36mos up(P F)) 06/14/2020 10:09:07 AM EST 0.5 ML [facility](3[facility] up)(PF) (flu vac [id number] 36mos up(P F)) 06/14/2020 10:09:07 AM EST 0.5 ML [facility](3yr up)(PF) (flu vac [id number] 36mos up(P F)) 06/14/2020 10:09:07 AM EST 0.5 ML completed [facility] Medrol Medrol 05/03/2020 12:00:00 AM EDT active [facility] ([facility]) Methylprednisolone Methylprednisolone (Medrol (Jarred)) 4 mg tablets,dose pack Methylprednisolone (Medrol (Jarred)) 4 mg tablets,dose pack 05/02/2020 10:02:27 AM EDT 0 completed [facility] Methylprednisolone Methylprednisolone (Medrol (Jarred)) 4 mg tablets,dose pack Methylprednisolone (Medrol (Jarred)) 4 mg tablets,dose pack 05/02/2020 10:02:27 AM EDT 0 completed [facility] Methylprednisolone Methylprednisolone (Medrol (Jarred)) 4 mg tablets,dose pack Methylprednisolone (Medrol (Jarred)) 4 mg tablets,dose pack 05/02/2020 10:02:27 AM EDT 0 completed [facility] Methylprednisolone Methylprednisolone (Medrol (Jarred)) 4 mg tablets,dose pack Methylprednisolone (Medrol (Jarred)) 4 mg tablets,dose pack 05/02/2020 10:02:27 AM EDT 0 completed [facility] Methylprednisolone Methylprednisolone (Medrol (Jarred)) 4 mg tablets,dose pack Methylprednisolone (Medrol (Jarred)) 4 mg tablets,dose pack 05/02/2020 10:02:27 AM EDT 0 completed [facility] Methylprednisolone Methylprednisolone (Medrol (Jarred)) 4 mg tablets,dose pack Methylprednisolone (Medrol (Jarred)) 4 mg tablets,dose pack 05/02/2020 10:02:27 AM EDT 0 active [facility] Methylprednisolone Methylprednisolone (Medrol (Jarred)) 4 mg tablets,dose pack Methylprednisolone (Medrol (Jarred)) 4 mg tablets,dose pack 05/02/2020 10:02:27 AM EDT 0 completed [facility] Cyclosporine 0.5 MG/ML Ophthalmic Suspen lily Cyclosporine (Restasis) 0.05 % dropperette Cyclosporine (Restasis) 0.05 % dropperette 04/19/2020 04:33:20 PM EDT 1 DROPS active [facility] Cyclosporine 0.5 MG/ML Ophthalmic Suspen lily Cyclosporine (Restasis) 0.05 % dropperette Cyclosporine (Restasis) 0.05 % dropperette 04/19/2020 04:33:20 PM EDT 1 DROPS active [facility] Cyclosporine 0.5 MG/ML Ophthalmic Suspen lily Cyclosporine (Restasis) 0.05 % dropperette Cyclosporine (Restasis) 0.05 % dropperette 04/19/2020 04:33:20 PM EDT 1 DROPS active [facility] Cyclosporine 0.5 MG/ML Ophthalmic Suspen lily Cyclosporine (Restasis) 0.05 % dropperette Cyclosporine (Restasis) 0.05 % dropperette 04/19/2020 04:33:20 PM EDT 1 DROPS active [facility] Cyclosporine 0.5 MG/ML Ophthalmic Suspen lily Cyclosporine (Restasis) 0.05 % dropperette Cyclosporine (Restasis) 0.05 % dropperette 04/19/2020 04:33:20 PM EDT 1 DROPS active [facility] Cyclosporine 0.5 MG/ML Ophthalmic Suspen lily Cyclosporine (Restasis) 0.05 % dropperette Cyclosporine (Restasis) 0.05 % dropperette 04/19/2020 04:33:20 PM EDT 1 DROPS active [facility] Cyclosporine 0.5 MG/ML Ophthalmic Suspen lily Cyclosporine (Restasis) 0.05 % dropperette Cyclosporine (Restasis) 0.05 % dropperette 04/19/2020 04:33:20 PM EDT 1 DROPS active [facility] Magnesium Oxide 400 MG Oral Tablet Magnesium Oxide 04/19/2020 04:33 :05 PM EDT 400 MG active [facility] Magnesium Oxide 400 MG Oral Tablet Magnesium Oxide 04/19/2020 04:33 :05 PM EDT 400 MG active [facility] Magnesium Oxide 400 MG Oral Tablet Magnesium Oxide 04/19/2020 04:33 :05 PM EDT 400 MG active [facility] Magnesium Oxide 400 MG Oral Tablet Magnesium Oxide 04/19/2020 04:33 :05 PM EDT 400 MG active [facility] Magnesium Oxide 400 MG Oral Tablet Magnesium Oxide 04/19/2020 04:33 :05 PM EDT 400 MG active [facility] Magnesium Oxide 400 MG Oral Tablet Magnesium Oxide 04/19/2020 04:33 :05 PM EDT 400 MG active [facility] Magnesium Oxide 400 MG Oral Tablet Magnesium Oxide 04/19/2020 04:33 :05 PM EDT 400 MG active [facility] Kelli Allergy 180 MG Oral Tablet Kelli Allergy 180 MG Or al Tablet 03/26/2020 12:00:00 AM EDT 1 active Kelli Allergy [place] (Andrew Gerber MD [facility]) rifaximin 550 MG Oral Tablet rifAXIMin 550 MG Oral Tab let rifAXIMin 550 MG Oral Tablet 03/26/2020 12:00:00 AM EDT 1 active rifaximin 550 MG Oral Tablet [place] (Andrew Gerber MD [facility]) Lisinopril 20 MG Oral Tablet Lisinopril 20 MG Oral Tablet 12:00:00 AM EDT 1 active lisinopril 20 MG Oral Tablet [place] (Andrew Gerber MD [facility]) Ascorbic Acid 500 MG Oral Capsule Ascorbic Acid 500 MG Oral Capsule 03/26/2020 12:00:00 AM EDT 1 active ascorbic acid 500 MG Oral Capsule [place] (Andrew Gerber MD [facility]) Warfarin Sodium 3 MG Oral Tablet Warfarin Sodium 3 MG Oral T ablet 03/26/2020 12:00:00 AM EDT 1 active warfarin sodium 3 MG Oral Tablet [place] (Andrew Gerber MD [facility]) Cymbalta 30 mg Oral Tablet Cymbalta 30 mg Oral Tablet 2019 12:00:00 AM EDT 1 active Cymbalta [place] (Andrew Gerber MD [facility]) Aspirin 81 MG Delayed Release Oral Table t Adult Aspirin EC Low Strength 81 MG Oral Tablet Delayed Release Adult Aspirin EC Low Strength 81 MG Oral Tablet Delayed Release 03/26/2020 12:00:00 AM EDT 1 ac tive aspirin 81 MG Delayed Release Oral Tablet [place] (Andrew Gerber MD [facility]) Cyclosporine 0.5 MG/ML Ophthalmic Suspen lily [Restasis] Restasis 0.05% Ophthalmic Emulsion Restasis 0.05% Ophthalmic Emulsion 03/26/2020 12:00:00 AM EDT active cyclospo rine 0.5 MG/ML Ophthalmic Suspension [Restasis] [place] (Andrew Gerber MD [facility]) Docusate Sodium 100 MG Oral Capsule Docusate Sodium 100 MG O ral Capsule 03/26/2020 12:00:00 AM EDT 1 active docusate sodium 100 MG Oral Capsule [place] (Andrew Gerber MD [facility]) Daily Mel Multivitamin/Iron Oral Tablet Daily Mel Mu ltivitamin/Iron Oral Tablet 03/26/2020 12:00:00 AM EDT 1 active Daily Mel Multivitamin/Iron [place] (Andrew Gerber MD [facility]) Warfarin Sodium 5 MG Oral Tablet Warfarin Sodium 5 MG Oral T ablet 03/26/2020 12:00:00 AM EDT 1 active warfarin sodium 5 MG Oral Tablet [place] (Andrew Gerber MD [facility]) Potassium 5 MEQ Oral Tablet Potassium 5 MEQ Oral Tablet 03/07 12:00:00 AM EDT 1 active Potassium [place] (Andrew Gerber MD [facility]) Magnesium 400 MG Oral Tablet Magnesium 400 MG Oral Tablet 12:00:00 AM EDT 1 active Magnesium [place] (Andrew Gerber MD [facility]) gabapentin 100 MG Oral Capsule Gabapentin 100 MG Oral Capsule Gabapentin 100 MG Oral Capsule 03/26/2020 12:00:00 AM EDT 1 activ e gabapentin 100 MG Oral Capsule [place] (Andrew Gerber MD [facility]) Hydroxychloroquine 200 MG Oral Tablet Hydroxychloroquine 200 MG Oral Tablet 03/26/2020 12:00:00 AM EDT 1 active Hydroxychloroquine 200 MG [place] (Andrew Gerber MD [facility]) Calcium-Vitamin D 500-200 MG-UNIT Oral Tablet Calcium- Vitamin D 500-200 MG-UNIT Oral Tablet 03/26/2020 12:00:00 AM EDT 1 active Calcium-Vitamin D [place] (Andrew Gerber MD [facility]) Nadolol 20 MG Oral Tablet Nadolol 20 MG Oral Tablet 03/26/2020 1 2:00:00 AM EDT 1 active nadolol 20 MG Or al Tablet [place] (Andrew Gerber MD [facility]) pantoprazole 40 MG Oral Granules [Protonix] Protonix 4 0 MG Oral Packet Protonix 40 MG Oral Packet 03/26/2020 12:00:00 AM EDT 1 active pantoprazole 40 MG Oral Granules [Protonix] [place] (Andrew Gerber MD [facility]) Warfarin Sodium 5 MG Oral Tablet Warfarin 03/22/2020 04:11:39 PM EDT 5 MG active [facility] Warfarin Sodium 5 MG Oral Tablet Warfarin 03/22/2020 04:11:39 PM EDT 5 MG active [facility] Warfarin Sodium 5 MG Oral Tablet Warfarin 03/22/2020 04:11:39 PM EDT 5 MG active [facility] Warfarin Sodium 5 MG Oral Tablet Warfarin 03/22/2020 04:11:39 PM EDT 5 MG active [facility] Warfarin Sodium 5 MG Oral Tablet Warfarin 03/22/2020 04:11:39 PM EDT 5 MG active [facility] Warfarin Sodium 5 MG Oral Tablet Warfarin 03/22/2020 04:11:39 PM EDT 5 MG active [facility] Warfarin Sodium 5 MG Oral Tablet Warfarin 03/22/2020 04:11:39 PM EDT 5 MG active [facility] Warfarin Sodium 5 MG Oral Tablet Warfarin 03/22/2020 04:11:39 PM EDT 5 MG active [facility] Injection Triamcinolone Acetonide Per 10 MG 02/02/2020 12:00 :00 AM EDT completed [facility] ([facility]) Medication administered onsite 0.8 ML Enoxaparin sodium 100 MG/ML Prefi lled Syringe Enoxaparin (Lovenox) 80 mg/0.8 mL syringe Enoxaparin (Lovenox) 80 mg/0.8 mL syringe 01/29/2020 1 2:51:23 PM EDT 70 MG completed [facility] 0.8 ML Enoxaparin sodium 100 MG/ML Prefi lled Syringe Enoxaparin (Lovenox) 80 mg/0.8 mL syringe Enoxaparin (Lovenox) 80 mg/0.8 mL syringe 01/29/2020 1 2:51:23 PM EDT 70 MG completed [facility] 0.8 ML Enoxaparin sodium 100 MG/ML Prefi lled Syringe Enoxaparin (Lovenox) 80 mg/0.8 mL syringe Enoxaparin (Lovenox) 80 mg/0.8 mL syringe 01/29/2020 1 2:51:23 PM EDT 70 MG completed [facility] 0.8 ML Enoxaparin sodium 100 MG/ML Prefi lled Syringe Enoxaparin (Lovenox) 80 mg/0.8 mL syringe Enoxaparin (Lovenox) 80 mg/0.8 mL syringe 01/29/2020 1 2:51:23 PM EDT 70 MG completed [facility] 0.8 ML Enoxaparin sodium 100 MG/ML Prefi lled Syringe Enoxaparin (Lovenox) 80 mg/0.8 mL syringe Enoxaparin (Lovenox) 80 mg/0.8 mL syringe 01/29/2020 1 2:51:23 PM EDT 70 MG completed [facility] 0.8 ML Enoxaparin sodium 100 MG/ML Prefi lled Syringe Enoxaparin (Lovenox) 80 mg/0.8 mL syringe Enoxaparin (Lovenox) 80 mg/0.8 mL syringe 01/29/2020 1 2:51:23 PM EDT 70 MG completed [facility] 0.8 ML Enoxaparin sodium 100 MG/ML Prefi lled Syringe Enoxaparin (Lovenox) 80 mg/0.8 mL syringe Enoxaparin (Lovenox) 80 mg/0.8 mL syringe 01/29/2020 1 2:51:23 PM EDT 70 MG completed [facility] 0.8 ML Enoxaparin sodium 100 MG/ML Prefi lled Syringe Enoxaparin (Lovenox) 80 mg/0.8 mL syringe Enoxaparin (Lovenox) 80 mg/0.8 mL syringe 01/29/2020 1 2:51:23 PM EDT 70 MG completed [facility] 0.8 ML Enoxaparin sodium 100 MG/ML Prefi lled Syringe Enoxaparin (Lovenox) 80 mg/0.8 mL syringe Enoxaparin (Lovenox) 80 mg/0.8 mL syringe 01/29/2020 1 2:51:23 PM EDT 70 MG completed [facility] 0.8 ML Enoxaparin sodium 100 MG/ML Prefi lled Syringe Enoxaparin (Lovenox) 80 mg/0.8 mL syringe Enoxaparin (Lovenox) 80 mg/0.8 mL syringe 01/29/2020 1 2:51:23 PM EDT 70 MG completed [facility] 0.8 ML Enoxaparin sodium 100 MG/ML Prefi lled Syringe Enoxaparin (Lovenox) 80 mg/0.8 mL syringe Enoxaparin (Lovenox) 80 mg/0.8 mL syringe 01/23/2020 0 6:04:04 PM EDT 70 MG completed [facility] 0.8 ML Enoxaparin sodium 100 MG/ML Prefi lled Syringe Enoxaparin (Lovenox) 80 mg/0.8 mL syringe Enoxaparin (Lovenox) 80 mg/0.8 mL syringe 01/23/2020 0 6:04:04 PM EDT 70 MG completed [facility] 0.8 ML Enoxaparin sodium 100 MG/ML Prefi lled Syringe Enoxaparin (Lovenox) 80 mg/0.8 mL syringe Enoxaparin (Lovenox) 80 mg/0.8 mL syringe 01/23/2020 0 6:04:04 PM EDT 70 MG completed [facility] 0.8 ML Enoxaparin sodium 100 MG/ML Prefi lled Syringe Enoxaparin (Lovenox) 80 mg/0.8 mL syringe Enoxaparin (Lovenox) 80 mg/0.8 mL syringe 01/23/2020 0 6:04:04 PM EDT 70 MG completed [facility] 0.8 ML Enoxaparin sodium 100 MG/ML Prefi lled Syringe Enoxaparin (Lovenox) 80 mg/0.8 mL syringe Enoxaparin (Lovenox) 80 mg/0.8 mL syringe 01/23/2020 0 6:04:04 PM EDT 70 MG completed [facility] 0.8 ML Enoxaparin sodium 100 MG/ML Prefi lled Syringe Enoxaparin (Lovenox) 80 mg/0.8 mL syringe Enoxaparin (Lovenox) 80 mg/0.8 mL syringe 01/23/2020 0 6:04:04 PM EDT 70 MG completed [facility] 0.8 ML Enoxaparin sodium 100 MG/ML Prefi lled Syringe Enoxaparin (Lovenox) 80 mg/0.8 mL syringe Enoxaparin (Lovenox) 80 mg/0.8 mL syringe 01/23/2020 0 6:04:04 PM EDT 70 MG completed [facility] 0.8 ML Enoxaparin sodium 100 MG/ML Prefi lled Syringe Enoxaparin (Lovenox) 80 mg/0.8 mL syringe Enoxaparin (Lovenox) 80 mg/0.8 mL syringe 01/23/2020 0 6:04:04 PM EDT 70 MG completed [facility] 0.8 ML Enoxaparin sodium 100 MG/ML Prefi lled Syringe Enoxaparin (Lovenox) 80 mg/0.8 mL syringe Enoxaparin (Lovenox) 80 mg/0.8 mL syringe 01/23/2020 0 6:04:04 PM EDT 70 MG completed [facility] 0.8 ML Enoxaparin sodium 100 MG/ML Prefi lled Syringe Enoxaparin (Lovenox) 80 mg/0.8 mL syringe Enoxaparin (Lovenox) 80 mg/0.8 mL syringe 01/23/2020 0 6:04:04 PM EDT 70 MG completed [facility] Warfarin Sodium 1 MG Oral Tablet Warfarin (Coumadin) 1 mg tablet Warfarin (Coumadin) 1 mg tablet 12/26/2019 07:20:46 AM EDT 1 MG active [facility] Warfarin Sodium 1 MG Oral Tablet Warfarin (Coumadin) 1 mg tablet Warfarin (Coumadin) 1 mg tablet 12/26/2019 07:20:46 AM EDT 1 MG active [facility] Warfarin Sodium 1 MG Oral Tablet Warfarin (Coumadin) 1 mg tablet Warfarin (Coumadin) 1 mg tablet 12/26/2019 07:20:46 AM EDT 1 MG active [facility] Warfarin Sodium 1 MG Oral Tablet Warfarin (Coumadin) 1 mg tablet Warfarin (Coumadin) 1 mg tablet 12/26/2019 07:20:46 AM EDT 1 MG active [facility] Warfarin Sodium 1 MG Oral Tablet Warfarin (Coumadin) 1 mg tablet Warfarin (Coumadin) 1 mg tablet 12/26/2019 07:20:46 AM EDT 1 MG active [facility] Warfarin Sodium 1 MG Oral Tablet Warfarin (Coumadin) 1 mg tablet Warfarin (Coumadin) 1 mg tablet 12/26/2019 07:20:46 AM EDT 1 MG active [facility] Warfarin Sodium 1 MG Oral Tablet Warfarin (Coumadin) 1 mg tablet Warfarin (Coumadin) 1 mg tablet 12/26/2019 07:20:46 AM EDT 1 MG active [facility] Warfarin Sodium 1 MG Oral Tablet Warfarin (Coumadin) 1 mg tablet Warfarin (Coumadin) 1 mg tablet 12/26/2019 07:20:46 AM EDT 1 MG active [facility] Warfarin Sodium 1 MG Oral Tablet Warfarin (Coumadin) 1 mg tablet Warfarin (Coumadin) 1 mg tablet 12/26/2019 07:20:46 AM EDT 1 MG active [facility] Warfarin Sodium 1 MG Oral Tablet Warfarin (Coumadin) 1 mg tablet Warfarin (Coumadin) 1 mg tablet 12/26/2019 07:20:46 AM EDT 1 MG active [facility] Warfarin Sodium 5 MG Oral Tablet Warfarin 12/26/2019 07:20:36 AM EDT 5 MG completed [facility] Warfarin Sodium 5 MG Oral Tablet Warfarin 12/26/2019 07:20:36 AM EDT 5 MG completed [facility] Warfarin Sodium 5 MG Oral Tablet Warfarin 12/26/2019 07:20:36 AM EDT 5 MG active [facility] Warfarin Sodium 5 MG Oral Tablet Warfarin 12/26/2019 07:20:36 AM EDT 5 MG completed [facility] Warfarin Sodium 5 MG Oral Tablet Warfarin 12/26/2019 07:20:36 AM EDT 5 MG active [facility] Warfarin Sodium 5 MG Oral Tablet Warfarin 12/26/2019 07:20:36 AM EDT 5 MG completed [facility] Warfarin Sodium 5 MG Oral Tablet Warfarin 12/26/2019 07:20:36 AM EDT 5 MG completed [facility] Warfarin Sodium 5 MG Oral Tablet Warfarin 12/26/2019 07:20:36 AM EDT 5 MG completed [facility] Warfarin Sodium 5 MG Oral Tablet Warfarin 12/26/2019 07:20:36 AM EDT 5 MG completed [facility] Warfarin Sodium 5 MG Oral Tablet Warfarin 12/26/2019 07:20:36 AM EDT 5 MG completed [facility] gabapentin 400 MG Oral Capsule Gabapentin Gabapentin 2019 07:03:01 PM EDT 400 MG active [facility] gabapentin 400 MG Oral Capsule Gabapentin Gabapentin 2019 07:03:01 PM EDT 400 MG active [facility] gabapentin 400 MG Oral Capsule Gabapentin Gabapentin 2019 07:03:01 PM EDT 400 MG [facility] gabapentin 400 MG Oral Capsule Gabapentin Gabapentin 2019 07:03:01 PM EDT 400 MG [facility] gabapentin 400 MG Oral Capsule Gabapentin Gabapentin 2019 07:03:01 PM EDT 400 MG [facility] gabapentin 400 MG Oral Capsule Gabapentin Gabapentin 2019 07:03:01 PM EDT 400 MG [facility] gabapentin 400 MG Oral Capsule Gabapentin Gabapentin 2019 07:03:01 PM EDT 400 MG [facility] gabapentin 400 MG Oral Capsule Gabapentin Gabapentin 2019 07:03:01 PM EDT 400 MG [facility] gabapentin 400 MG Oral Capsule Gabapentin Gabapentin 2019 07:03:01 PM EDT 400 MG [facility] gabapentin 400 MG Oral Capsule Gabapentin Gabapentin 2019 07:03:01 PM EDT 400 MG [facility] gabapentin 100 MG Oral Capsule Gabapentin Gabapentin 2019 07:02:57 PM EDT 100 MG [facility] gabapentin 100 MG Oral Capsule Gabapentin Gabapentin 2019 07:02:57 PM EDT 100 MG [facility] gabapentin 100 MG Oral Capsule Gabapentin Gabapentin 2019 07:02:57 PM EDT 100 MG [facility] gabapentin 100 MG Oral Capsule Gabapentin Gabapentin 2019 07:02:57 PM EDT 100 MG [facility] gabapentin 100 MG Oral Capsule Gabapentin Gabapentin 2019 07:02:57 PM EDT 100 MG [facility] gabapentin 100 MG Oral Capsule Gabapentin Gabapentin 2019 07:02:57 PM EDT 100 MG [facility] gabapentin 100 MG Oral Capsule Gabapentin Gabapentin 2019 07:02:57 PM EDT 100 MG [facility] gabapentin 100 MG Oral Capsule Gabapentin Gabapentin 2019 07:02:57 PM EDT 100 MG [facility] gabapentin 100 MG Oral Capsule Gabapentin Gabapentin 2019 07:02:57 PM EDT 100 MG active [facility] gabapentin 100 MG Oral Capsule Gabapentin Gabapentin 2019 07:02:57 PM EDT 100 MG active [facility] Warfarin Sodium 5 MG Oral Tablet Warfarin 12/25/2019 07:01:59 PM EDT 5 MG completed [facility] Warfarin Sodium 5 MG Oral Tablet Warfarin 12/25/2019 07:01:59 PM EDT 5 MG completed [facility] Warfarin Sodium 5 MG Oral Tablet Warfarin 12/25/2019 07:01:59 PM EDT 5 MG completed [facility] Warfarin Sodium 5 MG Oral Tablet Warfarin 12/25/2019 07:01:59 PM EDT 5 MG completed [facility] Warfarin Sodium 5 MG Oral Tablet Warfarin 12/25/2019 07:01:59 PM EDT 5 MG completed [facility] Warfarin Sodium 5 MG Oral Tablet Warfarin 12/25/2019 07:01:59 PM EDT 5 MG completed [facility] Warfarin Sodium 5 MG Oral Tablet Warfarin 12/25/2019 07:01:59 PM EDT 5 MG completed [facility] Warfarin Sodium 5 MG Oral Tablet Warfarin 12/25/2019 07:01:59 PM EDT 5 MG completed [facility] Warfarin Sodium 5 MG Oral Tablet Warfarin 12/25/2019 07:01:59 PM EDT 5 MG completed [facility] Warfarin Sodium 5 MG Oral Tablet Warfarin 12/25/2019 07:01:59 PM EDT 5 MG completed [facility] Warfarin Sodium 1 MG Oral Tablet Warfarin (Coumadin) 1 mg tablet Warfarin (Coumadin) 1 mg tablet 12/25/2019 07:01:38 PM EDT 1 MG completed [facility] Warfarin Sodium 1 MG Oral Tablet Warfarin (Coumadin) 1 mg tablet Warfarin (Coumadin) 1 mg tablet 12/25/2019 07:01:38 PM EDT 1 MG completed [facility] Warfarin Sodium 1 MG Oral Tablet Warfarin (Coumadin) 1 mg tablet Warfarin (Coumadin) 1 mg tablet 12/25/2019 07:01:38 PM EDT 1 MG completed [facility] Warfarin Sodium 1 MG Oral Tablet Warfarin (Coumadin) 1 mg tablet Warfarin (Coumadin) 1 mg tablet 12/25/2019 07:01:38 PM EDT 1 MG completed [facility] Warfarin Sodium 1 MG Oral Tablet Warfarin (Coumadin) 1 mg tablet Warfarin (Coumadin) 1 mg tablet 12/25/2019 07:01:38 PM EDT 1 MG completed [facility] Warfarin Sodium 1 MG Oral Tablet Warfarin (Coumadin) 1 mg tablet Warfarin (Coumadin) 1 mg tablet 12/25/2019 07:01:38 PM EDT 1 MG completed [facility] Warfarin Sodium 1 MG Oral Tablet Warfarin (Coumadin) 1 mg tablet Warfarin (Coumadin) 1 mg tablet 12/25/2019 07:01:38 PM EDT 1 MG completed [facility] Warfarin Sodium 1 MG Oral Tablet Warfarin (Coumadin) 1 mg tablet Warfarin (Coumadin) 1 mg tablet 12/25/2019 07:01:38 PM EDT 1 MG completed [facility] Warfarin Sodium 1 MG Oral Tablet Warfarin (Coumadin) 1 mg tablet Warfarin (Coumadin) 1 mg tablet 12/25/2019 07:01:38 PM EDT 1 MG completed [facility] Warfarin Sodium 1 MG Oral Tablet Warfarin (Coumadin) 1 mg tablet Warfarin (Coumadin) 1 mg tablet 12/25/2019 07:01:38 PM EDT 1 MG completed [facility] Warfarin Sodium 4 MG Oral Tablet Warfarin (Coumadin) 4 mg tablet Warfarin (Coumadin) 4 mg tablet 12/25/2019 07:01:32 PM EDT 4 MG active [facility] Warfarin Sodium 4 MG Oral Tablet Warfarin (Coumadin) 4 mg tablet Warfarin (Coumadin) 4 mg tablet 12/25/2019 07:01:32 PM EDT 4 MG active [facility] Warfarin Sodium 4 MG Oral Tablet Warfarin (Coumadin) 4 mg tablet Warfarin (Coumadin) 4 mg tablet 12/25/2019 07:01:32 PM EDT 4 MG active [facility] Warfarin Sodium 4 MG Oral Tablet Warfarin (Coumadin) 4 mg tablet Warfarin (Coumadin) 4 mg tablet 12/25/2019 07:01:32 PM EDT 4 MG active [facility] Warfarin Sodium 4 MG Oral Tablet Warfarin (Coumadin) 4 mg tablet Warfarin (Coumadin) 4 mg tablet 12/25/2019 07:01:32 PM EDT 4 MG active [facility] Warfarin Sodium 4 MG Oral Tablet Warfarin (Coumadin) 4 mg tablet Warfarin (Coumadin) 4 mg tablet 12/25/2019 07:01:32 PM EDT 4 MG active [facility] Warfarin Sodium 4 MG Oral Tablet Warfarin (Coumadin) 4 mg tablet Warfarin (Coumadin) 4 mg tablet 12/25/2019 07:01:32 PM EDT 4 MG active [facility] Warfarin Sodium 4 MG Oral Tablet Warfarin (Coumadin) 4 mg tablet Warfarin (Coumadin) 4 mg tablet 12/25/2019 07:01:32 PM EDT 4 MG active [facility] Warfarin Sodium 4 MG Oral Tablet Warfarin (Coumadin) 4 mg tablet Warfarin (Coumadin) 4 mg tablet 12/25/2019 07:01:32 PM EDT 4 MG active [facility] Warfarin Sodium 4 MG Oral Tablet Warfarin (Coumadin) 4 mg tablet Warfarin (Coumadin) 4 mg tablet 12/25/2019 07:01:32 PM EDT 4 MG active [facility] Medrol Medrol 12/25/2019 12:00:00 AM EDT completed [facility] ([facility]) Medrol Medrol 12/25/2019 12:00:00 AM EDT completed [facility] ([facility]) Acetaminophen 325 MG / butalbital 50 MG / Caffeine 40 MG Oral Capsule Wroqfyjbzl-Leksaokfpkuga-Qvri Fiqymweyep-Aprztiotntehu-Feui 11/25/2019 10:00:16 AM EDT 1 CAP completed [facility] Acetaminophen 325 MG / butalbital 50 MG / Caffeine 40 MG Oral Capsule Epopxvtrdp-Bhzmifxpbbwzo-Flvq Jtxlvxsbja-Ntrxhypfewizj-Dzld 11/25/2019 10:00:16 AM EDT 1 CAP completed [facility] Acetaminophen 325 MG / butalbital 50 MG / Caffeine 40 MG Oral Capsule Mhdvodkdoi-Skxgnpmxobawe-Qypw Bwuicqphqe-Isnqrgenaijij-Pxvu 11/25/2019 10:00:16 AM EDT 1 CAP completed [facility] Acetaminophen 325 MG / butalbital 50 MG / Caffeine 40 MG Oral Capsule Vudbshdotl-Udjdrbrkuednm-Ubxn Vpwzgzdrto-Yqlgpmxnseyae-Xfgn 11/25/2019 10:00:16 AM EDT 1 CAP active [facility] Acetaminophen 325 MG / butalbital 50 MG / Caffeine 40 MG Oral Capsule Jydjbcsalx-Fstnsiwftcgef-Illc Kfpekxirtr-Jiagufmdrwnck-Tawo 11/25/2019 10:00:16 AM EDT 1 CAP completed [facility] Acetaminophen 325 MG / butalbital 50 MG / Caffeine 40 MG Oral Capsule Xdpjywdoit-Purjdfsorlerd-Yspp Egmypoqoti-Mvnsbsxbjtyfd-Fbij 11/25/2019 10:00:16 AM EDT 1 CAP completed [facility] Acetaminophen 325 MG / butalbital 50 MG / Caffeine 40 MG Oral Capsule Vxsstuzmnd-Sfyqobiupirvg-Jdrq Esxvirfnri-Zcqpktskqexmg-Imgz 11/25/2019 10:00:16 AM EDT 1 CAP completed [facility] Acetaminophen 325 MG / butalbital 50 MG / Caffeine 40 MG Oral Capsule Czdotsiuvt-Dngbokadhqeau-Opvd Zvoyapaujr-Hnfmpnfdzolcv-Guzi 11/25/2019 10:00:16 AM EDT 1 CAP completed [facility] Acetaminophen 325 MG / butalbital 50 MG / Caffeine 40 MG Oral Capsule Xyclsaqtxb-Nliqnuezkclep-Wjfj Kgpzpikzdb-Wrofnegrvpssn-Ennb 11/25/2019 10:00:16 AM EDT 1 CAP completed [facility] Acetaminophen 325 MG / butalbital 50 MG / Caffeine 40 MG Oral Capsule Dvmtnjukrw-Ecxdxdgynuwrt-Updp Qxiuqsdkla-Qkzrfqipdacqb-Jihn 11/25/2019 10:00:16 AM EDT 1 CAP completed [facility] Acetaminophen 325 MG / butalbital 50 MG / Caffeine 40 MG Oral Capsule Fvxyqilnho-Viyplxsekxecg-Gogr Zxpxhukjon-Fcrfqllcjqdxd-Lmam 11/25/2019 10:00:16 AM EDT 1 CAP active [facility] Acetaminophen 325 MG / butalbital 50 MG / Caffeine 40 MG Oral Capsule Rrkoydilmh-Mlcctgsxdyzyh-Hlgj Ncejjucsxt-Vstkplpafqipa-Egid 11/25/2019 10:00:16 AM EDT 1 CAP completed [facility] Acetaminophen 325 MG / butalbital 50 MG / Caffeine 40 MG Oral Capsule Butalbital/Acetaminophen/Caffeine 11/21/2019 12:00:00 AM EDT ORAL active [facility] ([facility] ) Amoxicillin 875 MG / Clavulanate 125 MG Oral Tablet Amoxicillin-Pot Clavulanate (Augmentin) 875-125 mg tablet Amoxicillin-Pot Clavulanate (Augmentin) 875-125 mg tablet 10/28/2019 02:46:51 PM EDT 1 TAB completed [facility] Amoxicillin 875 MG / Clavulanate 125 MG Oral Tablet Amoxicillin-Pot Clavulanate (Augmentin) 875-125 mg tablet Amoxicillin-Pot Clavulanate (Augmentin) 875-125 mg tablet 10/28/2019 02:46:51 PM EDT 1 TAB completed [facility] Amoxicillin 875 MG / Clavulanate 125 MG Oral Tablet Amoxicillin-Pot Clavulanate (Augmentin) 875-125 mg tablet Amoxicillin-Pot Clavulanate (Augmentin) 875-125 mg tablet 10/28/2019 02:46:51 PM EDT 1 TAB completed [facility] Amoxicillin 875 MG / Clavulanate 125 MG Oral Tablet Am oxicillin-Pot Clavulanate Amoxicillin-Pot Clavulanate 10/28/2019 02:46:51 PM EDT 1 TAB completed [facility] Amoxicillin 875 MG / Clavulanate 125 MG Oral Tablet Amoxicillin-Pot Clavulanate (Augmentin) 875-125 mg tablet Amoxicillin-Pot Clavulanate (Augmentin) 875-125 mg tablet 10/28/2019 02:46:51 PM EDT 1 TAB completed [facility] Amoxicillin 875 MG / Clavulanate 125 MG Oral Tablet Amoxicillin-Pot Clavulanate (Augmentin) 875-125 mg tablet Amoxicillin-Pot Clavulanate (Augmentin) 875-125 mg tablet 10/28/2019 02:46:51 PM EDT 1 TAB completed [facility] Amoxicillin 875 MG / Clavulanate 125 MG Oral Tablet Am oxicillin-Pot Clavulanate Amoxicillin-Pot Clavulanate 10/28/2019 02:46:51 PM EDT 1 TAB completed [facility] Amoxicillin 875 MG / Clavulanate 125 MG Oral Tablet Amoxicillin-Pot Clavulanate (Augmentin) 875-125 mg tablet Amoxicillin-Pot Clavulanate (Augmentin) 875-125 mg tablet 10/28/2019 02:46:51 PM EDT 1 TAB completed [facility] Amoxicillin 875 MG / Clavulanate 125 MG Oral Tablet Amoxicillin-Pot Clavulanate (Augmentin) 875-125 mg tablet Amoxicillin-Pot Clavulanate (Augmentin) 875-125 mg tablet 10/28/2019 02:46:51 PM EDT 1 TAB completed [facility] Amoxicillin 875 MG / Clavulanate 125 MG Oral Tablet Amoxicillin-Pot Clavulanate (Augmentin) 875-125 mg tablet Amoxicillin-Pot Clavulanate (Augmentin) 875-125 mg tablet 10/28/2019 02:46:51 PM EDT 1 TAB completed [facility] Amoxicillin 875 MG / Clavulanate 125 MG Oral Tablet Amoxicillin-Pot Clavulanate (Augmentin) 875-125 mg tablet Amoxicillin-Pot Clavulanate (Augmentin) 875-125 mg tablet 10/28/2019 02:46:51 PM EDT 1 TAB completed [facility] Amoxicillin 875 MG / Clavulanate 125 MG Oral Tablet Amoxicillin-Pot Clavulanate (Augmentin) 875-125 mg tablet Amoxicillin-Pot Clavulanate (Augmentin) 875-125 mg tablet 10/28/2019 02:46:51 PM EDT 1 TAB completed [facility] pantoprazole 40 MG Delayed Release Oral Tablet Pantoprazole (Protonix) 40 mg tablet,delayed release (DR/EC) Pantoprazole (Protonix) 40 mg tablet,del ayed release (DR/EC) 10/21/2019 02:40:08 PM EDT 40 MG active [facility] pantoprazole 40 MG Delayed Release Oral Tablet Pantoprazole Pantoprazole 10/21/2019 02:40:08 PM EDT 40 MG active [facility] pantoprazole 40 MG Delayed Release Oral Tablet Pantoprazole Pantoprazole 10/21/2019 02:40:08 PM EDT 40 MG active [facility] pantoprazole 40 MG Delayed Release Oral Tablet Pantoprazole Pantoprazole 10/21/2019 02:40:08 PM EDT 40 MG active [facility] pantoprazole 40 MG Delayed Release Oral Tablet Pantoprazole (Protonix) 40 mg tablet,delayed release (DR/EC) Pantoprazole (Protonix) 40 mg tablet,del ayed release (DR/EC) 10/21/2019 02:40:08 PM EDT 40 MG active [facility] pantoprazole 40 MG Delayed Release Oral Tablet Pantoprazole (Protonix) 40 mg tablet,delayed release (DR/EC) Pantoprazole (Protonix) 40 mg tablet,del ayed release (DR/EC) 10/21/2019 02:40:08 PM EDT 40 MG [facility] pantoprazole 40 MG Delayed Release Oral Tablet Pantoprazole (Protonix) 40 mg tablet,delayed release (DR/EC) Pantoprazole (Protonix) 40 mg tablet,del ayed release (DR/EC) 10/21/2019 02:40:08 PM EDT 40 MG [facility] pantoprazole 40 MG Delayed Release Oral Tablet Pantoprazole Pantoprazole 10/21/2019 02:40:08 PM EDT 40 MG [facility] pantoprazole 40 MG Delayed Release Oral Tablet Pantoprazole (Protonix) 40 mg tablet,delayed release (DR/EC) Pantoprazole (Protonix) 40 mg tablet,del ayed release (DR/EC) 10/21/2019 02:40:08 PM EDT 40 MG [facility] pantoprazole 40 MG Delayed Release Oral Tablet Pantoprazole (Protonix) 40 mg tablet,delayed release (DR/EC) Pantoprazole (Protonix) 40 mg tablet,del ayed release (DR/EC) 10/21/2019 02:40:08 PM EDT 40 MG [facility] pantoprazole 40 MG Delayed Release Oral Tablet Pantoprazole (Protonix) 40 mg tablet,delayed release (DR/EC) Pantoprazole (Protonix) 40 mg tablet,del ayed release (DR/EC) 10/21/2019 02:40:08 PM EDT 40 MG [facility] pantoprazole 40 MG Delayed Release Oral Tablet Pantoprazole Pantoprazole 10/21/2019 02:40:08 PM EDT 40 MG [facility] pantoprazole 40 MG Delayed Release Oral Tablet Pantoprazole (Protonix) 40 mg tablet,delayed release (DR/EC) Pantoprazole (Protonix) 40 mg tablet,del ayed release (DR/EC) 10/21/2019 02:40:08 PM EDT 40 MG [facility] pantoprazole 40 MG Delayed Release Oral Tablet Pantoprazole (Protonix) 40 mg tablet,delayed release (DR/EC) Pantoprazole (Protonix) 40 mg tablet,del ayed release (DR/EC) 10/21/2019 02:40:08 PM EDT 40 MG active [facility] pantoprazole 40 MG Delayed Release Oral Tablet Pantoprazole (Protonix) 40 mg tablet,delayed release (DR/EC) Pantoprazole (Protonix) 40 mg tablet,del ayed release (DR/EC) 10/21/2019 02:40:08 PM EDT 40 MG active [facility] Lisinopril 20 MG Oral Tablet Lisinopril 10/21/2019 02:39:46 PM EDT 20 MG active [facility] Lisinopril 20 MG Oral Tablet Lisinopril 10/21/2019 02:39:46 PM EDT 20 MG active [facility] Lisinopril 20 MG Oral Tablet Lisinopril 10/21/2019 02:39:46 PM EDT 20 MG active [facility] Lisinopril 20 MG Oral Tablet Lisinopril 10/21/2019 02:39:46 PM EDT 20 MG active [facility] Lisinopril 20 MG Oral Tablet Lisinopril 10/21/2019 02:39:46 PM EDT 20 MG active [facility] Lisinopril 20 MG Oral Tablet Lisinopril 10/21/2019 02:39:46 PM EDT 20 MG active [facility] Lisinopril 20 MG Oral Tablet Lisinopril 10/21/2019 02:39:46 PM EDT 20 MG active [facility] Lisinopril 20 MG Oral Tablet Lisinopril 10/21/2019 02:39:46 PM EDT 20 MG active [facility] Lisinopril 20 MG Oral Tablet Lisinopril 10/21/2019 02:39:46 PM EDT 20 MG active [facility] Lisinopril 20 MG Oral Tablet Lisinopril 10/21/2019 02:39:46 PM EDT 20 MG active [facility] Lisinopril 20 MG Oral Tablet Lisinopril 10/21/2019 02:39:46 PM EDT 20 MG active [facility] Lisinopril 20 MG Oral Tablet Lisinopril 10/21/2019 02:39:46 PM EDT 20 MG active [facility] Lisinopril 20 MG Oral Tablet Lisinopril 10/21/2019 02:39:46 PM EDT 20 MG active [facility] Lisinopril 20 MG Oral Tablet Lisinopril 10/21/2019 02:39:46 PM EDT 20 MG active [facility] Lisinopril 20 MG Oral Tablet Lisinopril 10/21/2019 02:39:46 PM EDT 20 MG active [facility] Warfarin Sodium 3 MG Oral Tablet Warfarin (Coumadin) 3 mg tablet Warfarin (Coumadin) 3 mg tablet 09/29/2019 02:59:05 PM EST 3 MG completed [facility] Warfarin Sodium 3 MG Oral Tablet Warfarin (Coumadin) 3 mg tablet Warfarin (Coumadin) 3 mg tablet 09/29/2019 02:59:05 PM EST 3 MG completed [facility] Warfarin Sodium 3 MG Oral Tablet Warfarin (Coumadin) 3 mg tablet Warfarin (Coumadin) 3 mg tablet 09/29/2019 02:59:05 PM EST 3 MG completed [facility] Warfarin Sodium 3 MG Oral Tablet Warfarin 09/29/2019 02:59:05 PM EST 3 MG completed [facility] Warfarin Sodium 3 MG Oral Tablet Warfarin 09/29/2019 02:59:05 PM EST 3 MG completed [facility] Warfarin Sodium 3 MG Oral Tablet Warfarin (Coumadin) 3 mg tablet Warfarin (Coumadin) 3 mg tablet 09/29/2019 02:59:05 PM EST 3 MG [facility] Warfarin Sodium 3 MG Oral Tablet Warfarin (Coumadin) 3 mg tablet Warfarin (Coumadin) 3 mg tablet 09/29/2019 02:59:05 PM EST 3 MG completed [facility] Warfarin Sodium 3 MG Oral Tablet Warfarin (Coumadin) 3 mg tablet Warfarin (Coumadin) 3 mg tablet 09/29/2019 02:59:05 PM EST 3 MG completed [facility] Warfarin Sodium 3 MG Oral Tablet Warfarin (Coumadin) 3 mg tablet Warfarin (Coumadin) 3 mg tablet 09/29/2019 02:59:05 PM EST 3 MG completed [facility] Warfarin Sodium 3 MG Oral Tablet Warfarin 09/29/2019 02:59:05 PM EST 3 MG completed [facility] Warfarin Sodium 3 MG Oral Tablet Warfarin (Coumadin) 3 mg tablet Warfarin (Coumadin) 3 mg tablet 09/29/2019 02:59:05 PM EST 3 MG completed [facility] Warfarin Sodium 3 MG Oral Tablet Warfarin (Coumadin) 3 mg tablet Warfarin (Coumadin) 3 mg tablet 09/29/2019 02:59:05 PM EST 3 MG completed [facility] Warfarin Sodium 3 MG Oral Tablet Warfarin (Coumadin) 3 mg tablet Warfarin (Coumadin) 3 mg tablet 09/29/2019 02:59:05 PM EST 3 MG completed [facility] Warfarin Sodium 3 MG Oral Tablet Warfarin 09/29/2019 02:59:05 PM EST 3 MG active [facility] Warfarin Sodium 3 MG Oral Tablet Warfarin 09/29/2019 02:59:05 PM EST 3 MG completed [facility] Calcium ascorbate 500 MG Oral Tablet Ascorbate Calcium (Vitamin C) Ascorbate Calcium (Vitamin C) 09/25/2019 06:49:08 PM EST 500 MG [facility] Calcium ascorbate 500 MG Oral Tablet Ascorbate Calcium (Vitamin C) Ascorbate Calcium (Vitamin C) 09/25/2019 06:49:08 PM EST 500 MG [facility] Calcium ascorbate 500 MG Oral Tablet Ascorbate Calcium (Vitamin C) Ascorbate Calcium (Vitamin C) 09/25/2019 06:49:08 PM EST 500 MG [facility] Calcium ascorbate 500 MG Oral Tablet Ascorbate Calcium (Vitamin C) Ascorbate Calcium (Vitamin C) 09/25/2019 06:49:08 PM EST 500 MG [facility] Calcium ascorbate 500 MG Oral Tablet Ascorbate Calcium (Vitamin C) Ascorbate Calcium (Vitamin C) 09/25/2019 06:49:08 PM EST 500 MG [facility] Calcium ascorbate 500 MG Oral Tablet Ascorbate Calcium (Vitamin C) Ascorbate Calcium (Vitamin C) 09/25/2019 06:49:08 PM EST 500 MG [facility] Calcium ascorbate 500 MG Oral Tablet Ascorbate Calcium (Vitamin C) Ascorbate Calcium (Vitamin C) 09/25/2019 06:49:08 PM EST 500 MG [facility] Calcium ascorbate 500 MG Oral Tablet Ascorbate Calcium (Vitamin C) Ascorbate Calcium (Vitamin C) 09/25/2019 06:49:08 PM EST 500 MG [facility] Calcium ascorbate 500 MG Oral Tablet Ascorbate Calcium (Vitamin C) Ascorbate Calcium (Vitamin C) 09/25/2019 06:49:08 PM EST 500 MG [facility] Calcium ascorbate 500 MG Oral Tablet Ascorbate Calcium (Vitamin C) Ascorbate Calcium (Vitamin C) 09/25/2019 06:49:08 PM EST 500 MG [facility] Calcium ascorbate 500 MG Oral Tablet Ascorbate Calcium (Vitamin C) Ascorbate Calcium (Vitamin C) 09/25/2019 06:49:08 PM EST 500 MG [facility] Calcium ascorbate 500 MG Oral Tablet Ascorbate Calcium (Vitamin C) Ascorbate Calcium (Vitamin C) 09/25/2019 06:49:08 PM EST 500 MG [facility] Calcium ascorbate 500 MG Oral Tablet Ascorbate Calcium (Vitamin C) Ascorbate Calcium (Vitamin C) 09/25/2019 06:49:08 PM EST 500 MG [facility] Calcium ascorbate 500 MG Oral Tablet Ascorbate Calcium (Vitamin C) Ascorbate Calcium (Vitamin C) 09/25/2019 06:49:08 PM EST 500 MG [facility] Calcium ascorbate 500 MG Oral Tablet Ascorbate Calcium (Vitamin C) Ascorbate Calcium (Vitamin C) 09/25/2019 06:49:08 PM EST 500 MG [facility] Nadolol 20 MG Oral Tablet Nadolol 09/04/2019 01:25:06 PM EST 20 MG completed [facility] Nadolol 20 MG Oral Tablet Nadolol 09/04/2019 01:25:06 PM EST 20 MG completed [facility] Nadolol 20 MG Oral Tablet Nadolol 09/04/2019 01:25:06 PM EST 20 MG completed [facility] Nadolol 20 MG Oral Tablet Nadolol 09/04/2019 01:25:06 PM EST 20 MG active [facility] Nadolol 20 MG Oral Tablet Nadolol 09/04/2019 01:25:06 PM EST 20 MG active [facility] Nadolol 20 MG Oral Tablet Nadolol 09/04/2019 01:25:06 PM EST 20 MG active [facility] Nadolol 20 MG Oral Tablet Nadolol 09/04/2019 01:25:06 PM EST 20 MG active [facility] Nadolol 20 MG Oral Tablet Nadolol 09/04/2019 01:25:06 PM EST 20 MG active [facility] Nadolol 20 MG Oral Tablet Nadolol 09/04/2019 01:25:06 PM EST 20 MG active [facility] Nadolol 20 MG Oral Tablet Nadolol 09/04/2019 01:25:06 PM EST 20 MG active [facility] Nadolol 20 MG Oral Tablet Nadolol 09/04/2019 01:25:06 PM EST 20 MG active [facility] Nadolol 20 MG Oral Tablet Nadolol 09/04/2019 01:25:06 PM EST 20 MG completed [facility] Nadolol 20 MG Oral Tablet Nadolol 09/04/2019 01:25:06 PM EST 20 MG active [facility] Nadolol 20 MG Oral Tablet Nadolol 09/04/2019 01:25:06 PM EST 20 MG completed [facility] Nadolol 20 MG Oral Tablet Nadolol 09/04/2019 01:25:06 PM EST 20 MG completed [facility] potassium citrate 5 MEQ Extended Release Oral Tablet P otassium Citrate Potassium Citrate 08/12/2019 11:32:11 AM EST 5 MEQ active [facility] potassium citrate 5 MEQ Extended Release Oral Tablet P otassium Citrate Potassium Citrate 08/12/2019 11:32:11 AM EST 5 MEQ active [facility] potassium citrate 5 MEQ Extended Release Oral Tablet P otassium Citrate Potassium Citrate 08/12/2019 11:32:11 AM EST 5 MEQ active [facility] potassium citrate 5 MEQ Extended Release Oral Tablet P otassium Citrate Potassium Citrate 08/12/2019 11:32:11 AM EST 5 MEQ active [facility] potassium citrate 5 MEQ Extended Release Oral Tablet P otassium Citrate Potassium Citrate 08/12/2019 11:32:11 AM EST 5 MEQ completed [facility] potassium citrate 5 MEQ Extended Release Oral Tablet P otassium Citrate Potassium Citrate 08/12/2019 11:32:11 AM EST 5 MEQ active [facility] potassium citrate 5 MEQ Extended Release Oral Tablet P otassium Citrate Potassium Citrate 08/12/2019 11:32:11 AM EST 5 MEQ active [facility] potassium citrate 5 MEQ Extended Release Oral Tablet P otassium Citrate Potassium Citrate 08/12/2019 11:32:11 AM EST 5 MEQ completed [facility] potassium citrate 5 MEQ Extended Release Oral Tablet P otassium Citrate Potassium Citrate 08/12/2019 11:32:11 AM EST 5 MEQ active [facility] potassium citrate 5 MEQ Extended Release Oral Tablet P otassium Citrate Potassium Citrate 08/12/2019 11:32:11 AM EST 5 MEQ active [facility] potassium citrate 5 MEQ Extended Release Oral Tablet P otassium Citrate Potassium Citrate 08/12/2019 11:32:11 AM EST 5 MEQ active [facility] potassium citrate 5 MEQ Extended Release Oral Tablet P otassium Citrate Potassium Citrate 08/12/2019 11:32:11 AM EST 5 MEQ completed [facility] potassium citrate 5 MEQ Extended Release Oral Tablet P otassium Citrate Potassium Citrate 08/12/2019 11:32:11 AM EST 5 MEQ completed [facility] potassium citrate 5 MEQ Extended Release Oral Tablet P otassium Citrate Potassium Citrate 08/12/2019 11:32:11 AM EST 5 MEQ completed [facility] potassium citrate 5 MEQ Extended Release Oral Tablet P otassium Citrate Potassium Citrate 08/12/2019 11:32:11 AM EST 5 MEQ completed [facility] Fexofenadine hydrochloride 180 MG Oral Tablet Fexofenadine 08/12/2019 11:31:57 AM EST 180 MG active [facility] Fexofenadine hydrochloride 180 MG Oral Tablet Fexofenadine 08/12/2019 11:31:57 AM EST 180 MG active [facility] Fexofenadine hydrochloride 180 MG Oral Tablet Fexofenadine 08/12/2019 11:31:57 AM EST 180 MG active [facility] Fexofenadine hydrochloride 180 MG Oral Tablet Fexofenadine 08/12/2019 11:31:57 AM EST 180 MG completed [facility] Fexofenadine hydrochloride 180 MG Oral Tablet Fexofenadine 08/12/2019 11:31:57 AM EST 180 MG completed [facility] Fexofenadine hydrochloride 180 MG Oral Tablet Fexofenadine 08/12/2019 11:31:57 AM EST 180 MG active [facility] Fexofenadine hydrochloride 180 MG Oral Tablet Fexofenadine 08/12/2019 11:31:57 AM EST 180 MG completed [facility] Fexofenadine hydrochloride 180 MG Oral Tablet Fexofenadine 08/12/2019 11:31:57 AM EST 180 MG completed [facility] Fexofenadine hydrochloride 180 MG Oral Tablet Fexofenadine 08/12/2019 11:31:57 AM EST 180 MG active [facility] Fexofenadine hydrochloride 180 MG Oral Tablet Fexofenadine 08/12/2019 11:31:57 AM EST 180 MG active [facility] Fexofenadine hydrochloride 180 MG Oral Tablet Fexofenadine 08/12/2019 11:31:57 AM EST 180 MG active [facility] Fexofenadine hydrochloride 180 MG Oral Tablet Fexofenadine 08/12/2019 11:31:57 AM EST 180 MG active [facility] Fexofenadine hydrochloride 180 MG Oral Tablet Fexofenadine 08/12/2019 11:31:57 AM EST 180 MG completed [facility] Fexofenadine hydrochloride 180 MG Oral Tablet Fexofenadine 08/12/2019 11:31:57 AM EST 180 MG active [facility] Fexofenadine hydrochloride 180 MG Oral Tablet Fexofenadine 08/12/2019 11:31:57 AM EST 180 MG completed [facility] Hydroxychloroquine Sulfate 200 MG Oral Tablet Hydroxychloroq uine 08/12/2019 11:30:15 AM EST 200 MG completed [facility] Hydroxychloroquine Sulfate 200 MG Oral Tablet Hydroxychloroq 08/12/2019 11:30:15 AM EST 200 MG active [facility] Hydroxychloroquine Sulfate 200 MG Oral Tablet Hydroxychloroq 08/12/2019 11:30:15 AM EST 200 MG active [facility] Hydroxychloroquine Sulfate 200 MG Oral Tablet Hydroxychloroq 08/12/2019 11:30:15 AM EST 200 MG active [facility] Hydroxychloroquine Sulfate 200 MG Oral Tablet Hydroxychloroq 08/12/2019 11:30:15 AM EST 200 MG active [facility] Hydroxychloroquine Sulfate 200 MG Oral Tablet Hydroxychloroq 08/12/2019 11:30:15 AM EST 200 MG completed [facility] Hydroxychloroquine Sulfate 200 MG Oral Tablet Hydroxychloroq 08/12/2019 11:30:15 AM EST 200 MG completed [facility] Hydroxychloroquine Sulfate 200 MG Oral Tablet Hydroxychloroq 08/12/2019 11:30:15 AM EST 200 MG completed [facility] Hydroxychloroquine Sulfate 200 MG Oral Tablet Hydroxychloroq ne 08/12/2019 11:30:15 AM EST 200 MG active [facility] Hydroxychloroquine Sulfate 200 MG Oral Tablet Hydroxychloroq uine 08/12/2019 11:30:15 AM EST 200 MG active [facility] Hydroxychloroquine Sulfate 200 MG Oral Tablet Hydroxychloroq uine 08/12/2019 11:30:15 AM EST 200 MG completed [facility] Hydroxychloroquine Sulfate 200 MG Oral Tablet Hydroxychloroq uine 08/12/2019 11:30:15 AM EST 200 MG active [facility] Hydroxychloroquine Sulfate 200 MG Oral Tablet Hydroxychloroq uine 08/12/2019 11:30:15 AM EST 200 MG active [facility] Hydroxychloroquine Sulfate 200 MG Oral Tablet Hydroxychloroq uine 08/12/2019 11:30:15 AM EST 200 MG active [facility] Hydroxychloroquine Sulfate 200 MG Oral Tablet Hydroxychloroq uine 08/12/2019 11:30:15 AM EST 200 MG completed [facility] gabapentin 400 MG Oral Capsule Gabapentin Gabapentin 2018 04:05:48 PM EST 400 MG completed [facility] gabapentin 400 MG Oral Capsule Gabapentin Gabapentin 2018 04:05:48 PM EST 400 MG completed [facility] gabapentin 400 MG Oral Capsule Gabapentin Gabapentin 2018 04:05:48 PM EST 400 MG completed [facility] gabapentin 400 MG Oral Capsule Gabapentin Gabapentin 2018 04:05:48 PM EST 400 MG [facility] gabapentin 400 MG Oral Capsule Gabapentin Gabapentin 2018 04:05:48 PM EST 400 MG completed [facility] gabapentin 400 MG Oral Capsule Gabapentin Gabapentin 2018 04:05:48 PM EST 400 MG completed [facility] gabapentin 400 MG Oral Capsule Gabapentin Gabapentin 2018 04:05:48 PM EST 400 MG completed [facility] gabapentin 400 MG Oral Capsule Gabapentin Gabapentin 2018 04:05:48 PM EST 400 MG completed [facility] gabapentin 400 MG Oral Capsule Gabapentin Gabapentin 2018 04:05:48 PM EST 400 MG completed [facility] gabapentin 400 MG Oral Capsule Gabapentin Gabapentin 2018 04:05:48 PM EST 400 MG completed [facility] Hydroxychloroquine Sulfate 200 MG Oral Tablet Hydroxychloroq uine 06/24/2019 11:36:23 AM EST 200 MG completed [facility] Hydroxychloroquine Sulfate 200 MG Oral Tablet Hydroxychloroq uine 06/24/2019 11:36:23 AM EST 200 MG completed [facility] Hydroxychloroquine Sulfate 200 MG Oral Tablet Hydroxychloroq uine 06/24/2019 11:36:23 AM EST 200 MG completed [facility] Hydroxychloroquine Sulfate 200 MG Oral Tablet Hydroxychloroq uine 06/24/2019 11:36:23 AM EST 200 MG completed [facility] Hydroxychloroquine Sulfate 200 MG Oral Tablet Hydroxychloroq uine 06/24/2019 11:36:23 AM EST 200 MG completed [facility] Hydroxychloroquine Sulfate 200 MG Oral Tablet Hydroxychloroq uine 06/24/2019 11:36:23 AM EST 200 MG completed [facility] Hydroxychloroquine Sulfate 200 MG Oral Tablet Hydroxychloroq uine 06/24/2019 11:36:23 AM EST 200 MG completed [facility] Hydroxychloroquine Sulfate 200 MG Oral Tablet Hydroxychloroq uine 06/24/2019 11:36:23 AM EST 200 MG completed [facility] Hydroxychloroquine Sulfate 200 MG Oral Tablet Hydroxychloroq uine 06/24/2019 11:36:23 AM EST 200 MG completed [facility] Hydroxychloroquine Sulfate 200 MG Oral Tablet Hydroxychloroq uine 06/24/2019 11:36:23 AM EST 200 MG completed [facility] Hydroxychloroquine Sulfate 200 MG Oral Tablet Hydroxychloroq uine 06/24/2019 11:36:23 AM EST 200 MG completed [facility] Hydroxychloroquine Sulfate 200 MG Oral Tablet Hydroxychloroq uine 06/24/2019 11:36:23 AM EST 200 MG completed [facility] Hydroxychloroquine Sulfate 200 MG Oral Tablet Hydroxychloroq uine 06/24/2019 11:36:23 AM EST 200 MG completed [facility] Hydroxychloroquine Sulfate 200 MG Oral Tablet Hydroxychloroq uine 06/24/2019 11:36:23 AM EST 200 MG completed [facility] Hydroxychloroquine Sulfate 200 MG Oral Tablet Hydroxychloroq uine 06/24/2019 11:36:23 AM EST 200 MG completed [facility] Lisinopril 10 MG Oral Tablet Lisinopril 05/29/2019 11:31:45 AM EDT 10 MG completed [facility] Lisinopril 10 MG Oral Tablet Lisinopril 05/29/2019 11:31:45 AM EDT 10 MG completed [facility] Lisinopril 10 MG Oral Tablet Lisinopril 05/29/2019 11:31:45 AM EDT 10 MG completed [facility] Lisinopril 10 MG Oral Tablet Lisinopril 05/29/2019 11:31:45 AM EDT 10 MG completed [facility] Lisinopril 10 MG Oral Tablet Lisinopril 05/29/2019 11:31:45 AM EDT 10 MG completed [facility] Lisinopril 10 MG Oral Tablet Lisinopril 05/29/2019 11:31:45 AM EDT 10 MG completed [facility] Lisinopril 10 MG Oral Tablet Lisinopril 05/29/2019 11:31:45 AM EDT 10 MG completed [facility] Lisinopril 10 MG Oral Tablet Lisinopril 05/29/2019 11:31:45 AM EDT 10 MG completed [facility] Lisinopril 10 MG Oral Tablet Lisinopril 05/29/2019 11:31:45 AM EDT 10 MG completed [facility] Lisinopril 10 MG Oral Tablet Lisinopril 05/29/2019 11:31:45 AM EDT 10 MG completed [facility] Lisinopril 10 MG Oral Tablet Lisinopril 05/29/2019 11:31:45 AM EDT 10 MG completed [facility] Lisinopril 10 MG Oral Tablet Lisinopril 05/29/2019 11:31:45 AM EDT 10 MG completed [facility] Lisinopril 10 MG Oral Tablet Lisinopril 05/29/2019 11:31:45 AM EDT 10 MG completed [facility] Lisinopril 10 MG Oral Tablet Lisinopril 05/29/2019 11:31:45 AM EDT 10 MG completed [facility] Lisinopril 10 MG Oral Tablet Lisinopril 05/29/2019 11:31:45 AM EDT 10 MG completed [facility] Warfarin Sodium 4 MG Oral Tablet Warfarin (Coumadin) 4 mg tablet Warfarin (Coumadin) 4 mg tablet 05/06/2019 10:26:33 AM EDT 4 MG completed [facility] Warfarin Sodium 4 MG Oral Tablet Warfarin (Coumadin) 4 mg tablet Warfarin (Coumadin) 4 mg tablet 05/06/2019 10:26:33 AM EDT 4 MG completed [facility] Warfarin Sodium 4 MG Oral Tablet Warfarin (Coumadin) 4 mg tablet Warfarin (Coumadin) 4 mg tablet 05/06/2019 10:26:33 AM EDT 4 MG completed [facility] Warfarin Sodium 4 MG Oral Tablet Warfarin (Coumadin) 4 mg tablet Warfarin (Coumadin) 4 mg tablet 05/06/2019 10:26:33 AM EDT 4 MG completed [facility] Warfarin Sodium 4 MG Oral Tablet Warfarin (Coumadin) 4 mg tablet Warfarin (Coumadin) 4 mg tablet 05/06/2019 10:26:33 AM EDT 4 MG completed [facility] Warfarin Sodium 4 MG Oral Tablet Warfarin (Coumadin) 4 mg tablet Warfarin (Coumadin) 4 mg tablet 05/06/2019 10:26:33 AM EDT 4 MG completed [facility] Warfarin Sodium 4 MG Oral Tablet Warfarin (Coumadin) 4 mg tablet Warfarin (Coumadin) 4 mg tablet 05/06/2019 10:26:33 AM EDT 4 MG completed [facility] Warfarin Sodium 4 MG Oral Tablet Warfarin (Coumadin) 4 mg tablet Warfarin (Coumadin) 4 mg tablet 05/06/2019 10:26:33 AM EDT 4 MG completed [facility] Warfarin Sodium 4 MG Oral Tablet Warfarin (Coumadin) 4 mg tablet Warfarin (Coumadin) 4 mg tablet 05/06/2019 10:26:33 AM EDT 4 MG completed [facility] Warfarin Sodium 4 MG Oral Tablet Warfarin (Coumadin) 4 mg tablet Warfarin (Coumadin) 4 mg tablet 05/06/2019 10:26:33 AM EDT 4 MG completed [facility] Magnesium Oxide 400 MG Oral Tablet Magnesium Oxide 04/21/2019 11:37 :27 AM EDT 400 MG completed [facility] Magnesium Oxide 400 MG Oral Tablet Magnesium Oxide 04/21/2019 11:37 :27 AM EDT 400 MG completed [facility] Magnesium Oxide 400 MG Oral Tablet Magnesium Oxide 04/21/2019 11:37 :27 AM EDT 400 MG completed [facility] Magnesium Oxide 400 MG Oral Tablet Magnesium Oxide 04/21/2019 11:37 :27 AM EDT 400 MG completed [facility] Magnesium Oxide 400 MG Oral Tablet Magnesium Oxide 04/21/2019 11:37 :27 AM EDT 400 MG completed [facility] Magnesium Oxide 400 MG Oral Tablet Magnesium Oxide 04/21/2019 11:37 :27 AM EDT 400 MG completed [facility] Magnesium Oxide 400 MG Oral Tablet Magnesium Oxide 04/21/2019 11:37 :27 AM EDT 400 MG completed [facility] rifaximin 550 MG Oral Tablet Rifaximin Rifaximin 04/21/2019 11:3 7:06 AM EDT 550 MG [facility] rifaximin 550 MG Oral Tablet Rifaximin Rifaximin 04/21/2019 11:3 7:06 AM EDT 550 MG [facility] rifaximin 550 MG Oral Tablet Rifaximin Rifaximin 04/21/2019 11:3 7:06 AM EDT 550 MG completed [facility] rifaximin 550 MG Oral Tablet Rifaximin Rifaximin 04/21/2019 11:3 7:06 AM EDT 550 MG [facility] rifaximin 550 MG Oral Tablet Rifaximin Rifaximin 04/21/2019 11:3 7:06 AM EDT 550 MG [facility] rifaximin 550 MG Oral Tablet Rifaximin Rifaximin 04/21/2019 11:3 7:06 AM EDT 550 MG [facility] duloxetine 30 MG Delayed Release Oral Ca psule Duloxetine (Cymbalta) 30 mg capsule,delayed release(DR/EC) Duloxetine (Cymbalta) 30 mg capsule,martha yed release(DR/EC) 04/21/2019 11:36:42 AM EDT 30 MG complete d [facility] duloxetine 30 MG Delayed Release Oral Ca psule Duloxetine (Cymbalta) 30 mg capsule,delayed release(DR/EC) Duloxetine (Cymbalta) 30 mg capsule,martha yed release(DR/EC) 04/21/2019 11:36:42 AM EDT 30 MG complete d [facility] duloxetine 30 MG Delayed Release Oral Ca psule Duloxetine (Cymbalta) 30 mg capsule,delayed release(DR/EC) Duloxetine (Cymbalta) 30 mg capsule,martha yed release(DR/EC) 04/21/2019 11:36:42 AM EDT 30 MG complete d [facility] duloxetine 30 MG Delayed Release Oral Ca psule Duloxetine (Cymbalta) 30 mg capsule,delayed release(DR/EC) Duloxetine (Cymbalta) 30 mg capsule,martha yed release(DR/EC) 04/21/2019 11:36:42 AM EDT 30 MG complete d [facility] duloxetine 30 MG Delayed Release Oral Ca psule Duloxetine (Cymbalta) 30 mg capsule,delayed release(DR/EC) Duloxetine (Cymbalta) 30 mg capsule,martha yed release(DR/EC) 04/21/2019 11:36:42 AM EDT 30 MG complete d [facility] duloxetine 30 MG Delayed Release Oral Ca psule Duloxetine (Cymbalta) 30 mg capsule,delayed release(DR/EC) Duloxetine (Cymbalta) 30 mg capsule,martha yed release(DR/EC) 04/21/2019 11:36:42 AM EDT 30 MG complete d [facility] gabapentin 100 MG Oral Capsule Gabapentin Gabapentin 2018 10:48:34 AM EDT 100 MG completed [facility] gabapentin 100 MG Oral Capsule Gabapentin Gabapentin 2018 10:48:34 AM EDT 100 MG completed [facility] gabapentin 100 MG Oral Capsule Gabapentin Gabapentin 2018 10:48:34 AM EDT 100 MG completed [facility] gabapentin 100 MG Oral Capsule Gabapentin Gabapentin 2018 10:48:34 AM EDT 100 MG completed [facility] gabapentin 100 MG Oral Capsule Gabapentin Gabapentin 2018 10:48:34 AM EDT 100 MG completed [facility] gabapentin 100 MG Oral Capsule Gabapentin Gabapentin 2018 10:48:34 AM EDT 100 MG completed [facility] gabapentin 100 MG Oral Capsule Gabapentin Gabapentin 2018 10:48:34 AM EDT 100 MG completed [facility] gabapentin 100 MG Oral Capsule Gabapentin Gabapentin 2018 10:48:34 AM EDT 100 MG completed [facility] gabapentin 100 MG Oral Capsule Gabapentin Gabapentin 2018 10:48:34 AM EDT 100 MG completed [facility] gabapentin 100 MG Oral Capsule Gabapentin Gabapentin 2018 10:48:34 AM EDT 100 MG completed [facility] Warfarin Sodium 1 MG Oral Tablet Warfarin (Coumadin) 1 mg tablet Warfarin (Coumadin) 1 mg tablet 02/21/2019 07:00:42 PM EDT 1 MG completed [facility] Warfarin Sodium 1 MG Oral Tablet Warfarin (Coumadin) 1 mg tablet Warfarin (Coumadin) 1 mg tablet 02/21/2019 07:00:42 PM EDT 1 MG completed [facility] Warfarin Sodium 1 MG Oral Tablet Warfarin (Coumadin) 1 mg tablet Warfarin (Coumadin) 1 mg tablet 02/21/2019 07:00:42 PM EDT 1 MG completed [facility] Warfarin Sodium 1 MG Oral Tablet Warfarin (Coumadin) 1 mg tablet Warfarin (Coumadin) 1 mg tablet 02/21/2019 07:00:42 PM EDT 1 MG completed [facility] Warfarin Sodium 1 MG Oral Tablet Warfarin (Coumadin) 1 mg tablet Warfarin (Coumadin) 1 mg tablet 02/21/2019 07:00:42 PM EDT 1 MG [facility] Warfarin Sodium 1 MG Oral Tablet Warfarin (Coumadin) 1 mg tablet Warfarin (Coumadin) 1 mg tablet 02/21/2019 07:00:42 PM EDT 1 MG [facility] Warfarin Sodium 1 MG Oral Tablet Warfarin (Coumadin) 1 mg tablet Warfarin (Coumadin) 1 mg tablet 02/21/2019 07:00:42 PM EDT 1 MG completed [facility] Warfarin Sodium 1 MG Oral Tablet Warfarin (Coumadin) 1 mg tablet Warfarin (Coumadin) 1 mg tablet 02/21/2019 07:00:42 PM EDT 1 MG completed [facility] Warfarin Sodium 1 MG Oral Tablet Warfarin (Coumadin) 1 mg tablet Warfarin (Coumadin) 1 mg tablet 02/21/2019 07:00:42 PM EDT 1 MG completed [facility] Warfarin Sodium 1 MG Oral Tablet Warfarin (Coumadin) 1 mg tablet Warfarin (Coumadin) 1 mg tablet 02/21/2019 07:00:42 PM EDT 1 MG completed [facility] potassium citrate 5 MEQ Extended Release Oral Tablet P otassium Citrate Potassium Citrate 02/18/2019 11:34:24 AM EDT 5 MEQ completed [facility] potassium citrate 5 MEQ Extended Release Oral Tablet P otassium Citrate Potassium Citrate 02/18/2019 11:34:24 AM EDT 5 MEQ completed [facility] potassium citrate 5 MEQ Extended Release Oral Tablet P otassium Citrate Potassium Citrate 02/18/2019 11:34:24 AM EDT 5 MEQ completed [facility] potassium citrate 5 MEQ Extended Release Oral Tablet P otassium Citrate Potassium Citrate 02/18/2019 11:34:24 AM EDT 5 MEQ completed [facility] potassium citrate 5 MEQ Extended Release Oral Tablet P otassium Citrate Potassium Citrate 02/18/2019 11:34:24 AM EDT 5 MEQ completed [facility] potassium citrate 5 MEQ Extended Release Oral Tablet P otassium Citrate Potassium Citrate 02/18/2019 11:34:24 AM EDT 5 MEQ completed [facility] potassium citrate 5 MEQ Extended Release Oral Tablet P otassium Citrate Potassium Citrate 02/18/2019 11:34:24 AM EDT 5 MEQ completed [facility] potassium citrate 5 MEQ Extended Release Oral Tablet P otassium Citrate Potassium Citrate 02/18/2019 11:34:24 AM EDT 5 MEQ completed [facility] potassium citrate 5 MEQ Extended Release Oral Tablet P otassium Citrate Potassium Citrate 02/18/2019 11:34:24 AM EDT 5 MEQ completed [facility] potassium citrate 5 MEQ Extended Release Oral Tablet P otassium Citrate Potassium Citrate 02/18/2019 11:34:24 AM EDT 5 MEQ completed [facility] potassium citrate 5 MEQ Extended Release Oral Tablet P otassium Citrate Potassium Citrate 02/18/2019 11:34:24 AM EDT 5 MEQ completed [facility] potassium citrate 5 MEQ Extended Release Oral Tablet P otassium Citrate Potassium Citrate 02/18/2019 11:34:24 AM EDT 5 MEQ completed [facility] potassium citrate 5 MEQ Extended Release Oral Tablet P otassium Citrate Potassium Citrate 02/18/2019 11:34:24 AM EDT 5 MEQ completed [facility] potassium citrate 5 MEQ Extended Release Oral Tablet P otassium Citrate Potassium Citrate 02/18/2019 11:34:24 AM EDT 5 MEQ completed [facility] potassium citrate 5 MEQ Extended Release Oral Tablet P otassium Citrate Potassium Citrate 02/18/2019 11:34:24 AM EDT 5 MEQ completed [facility] dexlansoprazole 60 MG Delayed Release Oral Capsule Dex lansoprazole Dexlansoprazole 02/18/2019 11:33:20 AM EDT 60 MG complet [facility] dexlansoprazole 60 MG Delayed Release Oral Capsule Dex lansoprazole Dexlansoprazole 02/18/2019 11:33:20 AM EDT 60 MG complet [facility] dexlansoprazole 60 MG Delayed Release Oral Capsule Dex lansoprazole Dexlansoprazole 02/18/2019 11:33:20 AM EDT 60 MG complet [facility] dexlansoprazole 60 MG Delayed Release Oral Capsule Dex lansoprazole Dexlansoprazole 02/18/2019 11:33:20 AM EDT 60 MG complet [facility] dexlansoprazole 60 MG Delayed Release Oral Capsule Dex lansoprazole Dexlansoprazole 02/18/2019 11:33:20 AM EDT 60 MG complet [facility] dexlansoprazole 60 MG Delayed Release Oral Capsule Dex lansoprazole Dexlansoprazole 02/18/2019 11:33:20 AM EDT 60 MG complet [facility] dexlansoprazole 60 MG Delayed Release Oral Capsule Dex lansoprazole Dexlansoprazole 02/18/2019 11:33:20 AM EDT 60 MG complet [facility] dexlansoprazole 60 MG Delayed Release Oral Capsule Dex lansoprazole Dexlansoprazole 02/18/2019 11:33:20 AM EDT 60 MG complet [facility] dexlansoprazole 60 MG Delayed Release Oral Capsule Dex lansoprazole Dexlansoprazole 02/18/2019 11:33:20 AM EDT 60 MG complet [facility] dexlansoprazole 60 MG Delayed Release Oral Capsule Dex lansoprazole Dexlansoprazole 02/18/2019 11:33:20 AM EDT 60 MG complet [facility] dexlansoprazole 60 MG Delayed Release Oral Capsule Dex lansoprazole Dexlansoprazole 02/18/2019 11:33:20 AM EDT 60 MG complet [facility] dexlansoprazole 60 MG Delayed Release Oral Capsule Dex lansoprazole Dexlansoprazole 02/18/2019 11:33:20 AM EDT 60 MG complet [facility] dexlansoprazole 60 MG Delayed Release Oral Capsule Dex lansoprazole Dexlansoprazole 02/18/2019 11:33:20 AM EDT 60 MG complet [facility] dexlansoprazole 60 MG Delayed Release Oral Capsule Dex lansoprazole Dexlansoprazole 02/18/2019 11:33:20 AM EDT 60 MG complet ed [facility] dexlansoprazole 60 MG Delayed Release Oral Capsule Dex lansoprazole Dexlansoprazole 02/18/2019 11:33:20 AM EDT 60 MG complet ed [facility] Fexofenadine hydrochloride 180 MG Oral Tablet Fexofenadine 02/18/2019 11:26:41 AM EDT 180 MG completed [facility] Fexofenadine hydrochloride 180 MG Oral Tablet Fexofenadine 02/18/2019 11:26:41 AM EDT 180 MG completed [facility] Fexofenadine hydrochloride 180 MG Oral Tablet Fexofenadine 02/18/2019 11:26:41 AM EDT 180 MG completed [facility] Fexofenadine hydrochloride 180 MG Oral Tablet Fexofenadine 02/18/2019 11:26:41 AM EDT 180 MG completed [facility] Fexofenadine hydrochloride 180 MG Oral Tablet Fexofenadine 02/18/2019 11:26:41 AM EDT 180 MG completed [facility] Fexofenadine hydrochloride 180 MG Oral Tablet Fexofenadine 02/18/2019 11:26:41 AM EDT 180 MG completed [facility] Fexofenadine hydrochloride 180 MG Oral Tablet Fexofenadine 02/18/2019 11:26:41 AM EDT 180 MG completed [facility] Fexofenadine hydrochloride 180 MG Oral Tablet Fexofenadine 02/18/2019 11:26:41 AM EDT 180 MG completed [facility] Fexofenadine hydrochloride 180 MG Oral Tablet Fexofenadine 02/18/2019 11:26:41 AM EDT 180 MG completed [facility] Fexofenadine hydrochloride 180 MG Oral Tablet Fexofenadine 02/18/2019 11:26:41 AM EDT 180 MG completed [facility] Fexofenadine hydrochloride 180 MG Oral Tablet Fexofenadine 02/18/2019 11:26:41 AM EDT 180 MG completed [facility] Fexofenadine hydrochloride 180 MG Oral Tablet Fexofenadine 02/18/2019 11:26:41 AM EDT 180 MG completed [facility] Fexofenadine hydrochloride 180 MG Oral Tablet Fexofenadine 02/18/2019 11:26:41 AM EDT 180 MG completed [facility] Fexofenadine hydrochloride 180 MG Oral Tablet Fexofenadine 02/18/2019 11:26:41 AM EDT 180 MG completed [facility] Fexofenadine hydrochloride 180 MG Oral Tablet Fexofenadine 02/18/2019 11:26:41 AM EDT 180 MG completed [facility] Nadolol 20 MG Oral Tablet Nadolol 02/18/2019 11:24:41 AM EDT 20 MG completed [facility] Nadolol 20 MG Oral Tablet Nadolol 02/18/2019 11:24:41 AM EDT 20 MG completed [facility] Nadolol 20 MG Oral Tablet Nadolol 02/18/2019 11:24:41 AM EDT 20 MG completed [facility] Nadolol 20 MG Oral Tablet Nadolol 02/18/2019 11:24:41 AM EDT 20 MG completed [facility] Nadolol 20 MG Oral Tablet Nadolol 02/18/2019 11:24:41 AM EDT 20 MG completed [facility] Nadolol 20 MG Oral Tablet Nadolol 02/18/2019 11:24:41 AM EDT 20 MG completed [facility] Nadolol 20 MG Oral Tablet Nadolol 02/18/2019 11:24:41 AM EDT 20 MG completed [facility] Nadolol 20 MG Oral Tablet Nadolol 02/18/2019 11:24:41 AM EDT 20 MG completed [facility] Nadolol 20 MG Oral Tablet Nadolol 02/18/2019 11:24:41 AM EDT 20 MG completed [facility] Nadolol 20 MG Oral Tablet Nadolol 02/18/2019 11:24:41 AM EDT 20 MG completed [facility] Nadolol 20 MG Oral Tablet Nadolol 02/18/2019 11:24:41 AM EDT 20 MG completed [facility] Nadolol 20 MG Oral Tablet Nadolol 02/18/2019 11:24:41 AM EDT 20 MG completed [facility] Nadolol 20 MG Oral Tablet Nadolol 02/18/2019 11:24:41 AM EDT 20 MG [facility] Nadolol 20 MG Oral Tablet Nadolol 02/18/2019 11:24:41 AM EDT 20 MG [facility] Nadolol 20 MG Oral Tablet Nadolol 02/18/2019 11:24:41 AM EDT 20 MG [facility] ferrous gluconate 324 MG Oral Tablet Ferrous Gluconate Yoko us Gluconate 02/18/2019 11:22:12 AM EDT 324 MG [facility] ferrous gluconate 324 MG Oral Tablet Ferrous Gluconate Yoko us Gluconate 02/18/2019 11:22:12 AM EDT 324 MG [facility] ferrous gluconate 324 MG Oral Tablet Ferrous Gluconate Yoko us Gluconate 02/18/2019 11:22:12 AM EDT 324 MG [facility] ferrous gluconate 324 MG Oral Tablet Ferrous Gluconate Yoko us Gluconate 02/18/2019 11:22:12 AM EDT 324 MG [facility] ferrous gluconate 324 MG Oral Tablet Ferrous Gluconate Yoko us Gluconate 02/18/2019 11:22:12 AM EDT 324 MG [facility] ferrous gluconate 324 MG Oral Tablet Ferrous Gluconate Yoko us Gluconate 02/18/2019 11:22:12 AM EDT 324 MG [facility] ferrous gluconate 324 MG Oral Tablet Ferrous Gluconate Yoko us Gluconate 02/18/2019 11:22:12 AM EDT 324 MG [facility] ferrous gluconate 324 MG Oral Tablet Ferrous Gluconate Yoko us Gluconate 02/18/2019 11:22:12 AM EDT 324 MG [facility] ferrous gluconate 324 MG Oral Tablet Ferrous Gluconate Yoko us Gluconate 02/18/2019 11:22:12 AM EDT 324 MG [facility] ferrous gluconate 324 MG Oral Tablet Ferrous Gluconate Yoko us Gluconate 02/18/2019 11:22:12 AM EDT 324 MG [facility] Cyclosporine 0.5 MG/ML Ophthalmic Suspen lily Cyclosporine (Restasis) 0.05 % dropperette Cyclosporine (Restasis) 0.05 % dropperette 01/10/2019 07:41:06 AM EDT 1 DROPS [facility] Cyclosporine 0.5 MG/ML Ophthalmic Suspen lily Cyclosporine (Restasis) 0.05 % dropperette Cyclosporine (Restasis) 0.05 % dropperette 01/10/2019 07:41:06 AM EDT 1 DROPS completed [facility] Cyclosporine 0.5 MG/ML Ophthalmic Suspen lily Cyclosporine (Restasis) 0.05 % dropperette Cyclosporine (Restasis) 0.05 % dropperette 01/10/2019 07:41:06 AM EDT 1 DROPS completed [facility] Cyclosporine 0.5 MG/ML Ophthalmic Suspen lily Cyclosporine (Restasis) 0.05 % dropperette Cyclosporine (Restasis) 0.05 % dropperette 01/10/2019 07:41:06 AM EDT 1 DROPS completed [facility] Cyclosporine 0.5 MG/ML Ophthalmic Suspen lily Cyclosporine (Restasis) 0.05 % dropperette Cyclosporine (Restasis) 0.05 % dropperette 01/10/2019 07:41:06 AM EDT 1 DROPS completed [facility] Cyclosporine 0.5 MG/ML Ophthalmic Suspen lily Cyclosporine (Restasis) 0.05 % dropperette Cyclosporine (Restasis) 0.05 % dropperette 01/10/2019 07:41:06 AM EDT 1 DROPS completed [facility] Cyclosporine 0.5 MG/ML Ophthalmic Suspen lily Cyclosporine (Restasis) 0.05 % dropperette Cyclosporine (Restasis) 0.05 % dropperette 01/10/2019 07:41:06 AM EDT 1 DROPS completed [facility] Warfarin Sodium 3 MG Oral Tablet Warfarin 12/23/2018 09:28:42 AM EDT 3 MG completed [facility] Warfarin Sodium 3 MG Oral Tablet Warfarin (Coumadin) 3 mg tablet Warfarin (Coumadin) 3 mg tablet 12/23/2018 09:28:42 AM EDT 3 MG completed [facility] Warfarin Sodium 3 MG Oral Tablet Warfarin (Coumadin) 3 mg tablet Warfarin (Coumadin) 3 mg tablet 12/23/2018 09:28:42 AM EDT 3 MG completed [facility] Warfarin Sodium 3 MG Oral Tablet Warfarin 12/23/2018 09:28:42 AM EDT 3 MG completed [facility] Warfarin Sodium 3 MG Oral Tablet Warfarin (Coumadin) 3 mg tablet Warfarin (Coumadin) 3 mg tablet 12/23/2018 09:28:42 AM EDT 3 MG completed [facility] Warfarin Sodium 3 MG Oral Tablet Warfarin (Coumadin) 3 mg tablet Warfarin (Coumadin) 3 mg tablet 12/23/2018 09:28:42 AM EDT 3 MG completed [facility] Warfarin Sodium 3 MG Oral Tablet Warfarin 12/23/2018 09:28:42 AM EDT 3 MG completed [facility] Warfarin Sodium 3 MG Oral Tablet Warfarin (Coumadin) 3 mg tablet Warfarin (Coumadin) 3 mg tablet 12/23/2018 09:28:42 AM EDT 3 MG completed [facility] Warfarin Sodium 3 MG Oral Tablet Warfarin (Coumadin) 3 mg tablet Warfarin (Coumadin) 3 mg tablet 12/23/2018 09:28:42 AM EDT 3 MG completed [facility] Warfarin Sodium 3 MG Oral Tablet Warfarin 12/23/2018 09:28:42 AM EDT 3 MG completed [facility] Warfarin Sodium 3 MG Oral Tablet Warfarin (Coumadin) 3 mg tablet Warfarin (Coumadin) 3 mg tablet 12/23/2018 09:28:42 AM EDT 3 MG completed [facility] Warfarin Sodium 3 MG Oral Tablet Warfarin (Coumadin) 3 mg tablet Warfarin (Coumadin) 3 mg tablet 12/23/2018 09:28:42 AM EDT 3 MG completed [facility] Warfarin Sodium 3 MG Oral Tablet Warfarin (Coumadin) 3 mg tablet Warfarin (Coumadin) 3 mg tablet 12/23/2018 09:28:42 AM EDT 3 MG completed [facility] Warfarin Sodium 3 MG Oral Tablet Warfarin 12/23/2018 09:28:42 AM EDT 3 MG completed [facility] Warfarin Sodium 3 MG Oral Tablet Warfarin (Coumadin) 3 mg tablet Warfarin (Coumadin) 3 mg tablet 12/23/2018 09:28:42 AM EDT 3 MG [facility] Insurance Providers Payer name Policy type / Coverage type Policy ID Covered republican ID Covered republican's relationship to hogan Policy [employer] Plan Information FOR LIFE [id number] SP [id number] MEDICARE [id number] SP [id number] FOR LIFE [id number] SP [id number] Medicare Part B [facility] Other 0 Se lf 0 Medicare Part B [facility] Other 0 Se lf 0 [facility] [employer] - RECURRING [id number] 18 [id number] MEDICARE -RECURRING [id number] 18 [id number] Problems, Conditions, and Diagnoses Code Display Name Description Problem Type Effective Dates Data Source(s) 56516916 Type 2 diabetes mellitus Type 2 diabetes mellitus Prob al 09/07/2020 12:00:00 AM EST [facility] ([facility]) [id number] Dyspnea Dyspnea Problem 09/07/2020 12:00:00 AM ES T [facility] ([facility]) [id number] Hypercoagulability state Hypercoagulability state Prob al 09/07/2020 12:00:00 AM EST [facility] ([facility]) 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) 437.9 Stroke/cerebrovascular Accident Stroke/cerebrovascular Accident Problem 08/10/2020 12:00:00 AM EST [place] (Andrew Gerber MD [facility]) 379.21 Vitreous Disorders Degeneration Vitreous Disorders Deg eneration Problem 03/26/2020 12:00:00 AM EDT [place] (Andrew Gerber MD [facility]) 375.15 Dry Eye Syndrome Dry Eye Syndrome Problem 03/26/2020 12 :00:00 AM EDT [place] (Andrew Gerber MD 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) 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 Cataract Senile Nuclear Proble m 03/26/2020 12:00:00 AM EDT [place] (Andrew Gerber MD [facility]) 714.0 Rheumatoid Arthritis Rf Positive Rheumatoid Arthritis Rf Positive Problem 03/26/2020 12:00:00 AM EDT [place] (Andrew Gerber MD [facility]) 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 Problem 03/26/2020 12:00:00 AM EDT [place] (Andrew lindsey MD [facility]) V58.69 Carpenter/Labor Use of Other Medications Care Home Use of Other Medications Problem 03/26/2020 12:00:00 AM EDT [place] (Andrew lindsey MD [facility]) 379.21 Vitreous Disorders Degeneration Vitreous Disorders Deg eneration Problem 03/26/2020 12:00:00 AM EDT [place] (Andrew Gerber MD [facility]) 375.15 Dry Eye Syndrome Dry Eye Syndrome Problem 03/26/2020 12 :00:00 AM EDT [place] (Andrew Gerber MD 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) 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 Cataract Senile Nuclear Proble m 03/26/2020 12:00:00 AM EDT [place] (Andrew Gerber MD [facility]) 714.0 Rheumatoid Arthritis Rf Positive Rheumatoid Arthritis Rf Positive Problem 03/26/2020 12:00:00 AM EDT [place] (Andrew Gerber MD [facility]) 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 Problem 03/26/2020 12:00:00 AM EDT [place] (Andrew lindsey MD [facility]) V58.69 Care Home Use of Other Medications Carpenter/Labor Use of Other Medications Problem 03/26/2020 12:00:00 AM EDT [place] (Andrew lindsey MD [facility]) [id number] History of cerebrovascular accident with out residual deficits History of cerebrovascular accident without residual deficits Problem 03/02/2020 12:00:00 AM EDT [facility] ([facility]) [id number] Right bundle branch block Right bundle branch block Pr oblem 03/02/2020 12:00:00 AM EDT [facility] ([facility]) [id number] Degeneration of cervical intervertebral disc Degeneration of cervical intervertebral disc Problem 12/25/2019 12:00:00 AM EDT [facility]) [id number] Cervical spondylosis with myelopathy Cer vical spondylosis with myelopathy Problem 12/25/2019 12:00:00 AM EDT [facility]) [id number] Low back pain Low back pain Problem 11/17/2019 12:00:00 AM EDT [facility] ([facility] ) [id number] Muscle weakness Muscle weakness Problem 11/17/2019 12:0 0:00 AM EDT [facility] ([facility] ) [id number] Collapse Collapse Problem 11/17/2019 12:00:00 AM ED T [facility] ([facility]) M32.9 [id number] Systemic lupus eryth ematosus, unspecified SLE type, unspecified organ involvement status Problem 09/30/2019 12:00:00 AM EST eCW1 (Formerly [facility], [facility]) G89.29 [id number] Other chronic pain Problem 09/05/2019 12:00: 00 AM EST eCW1 (Formerly [facility], [facility]) M25.512 [id number] Pain in left shoulder Problem 09/05/2019 12: 00:00 AM EST eCW1 (Formerly [facility], [facility]) M79.7 [id number] Fibromyalgia Problem 09/05/2019 12:00:00 AM EST eCW1 (Formerly [facility], [facility]) M15.0 449296368 Primary osteoarthritis involving multiple joints Problem 09/05/2019 12:00:00 AM EST eCW1 (Formerly [facility], [facility]) M32.9 [id number] History of lupus Problem 09/05/2019 12:00:00 AM EST eCW1 ([facility]ly [facility], [facility]) M65.332 [id number] Trigger middle finger of left hand Proble m 09/05/2019 12:00:00 AM EST eCW1 ([facility]ly [facility], [facility]) M06.9 [id number] Rheumatoid arthritis involving multiple sites, unspecified rheumatoid factor presence Problem 09/05/2019 12:00:00 AM EST eCW1 ( [facility]) D68.61 [id number] Antiphospholipid antibody syndrome Proble m 09/05/2019 12:00:00 AM EST eCW1 ([facility]ly [facility]) G89.29 [id number] Other chronic pain Problem 09/05/2019 12:00: 00 AM EST eCW1 ([facility]ly [facility], [facility]) M25.512 13160556 Pain in left shoulder Problem 09/05/2019 12: 00:00 AM EST eCW1 ([facility]ly [facility], [facility]) M79.7 [id number] Fibromyalgia Problem 09/05/2019 12:00:00 AM EST eCW1 ([facility]) M15.0 [id number] Primary osteoarthritis involving multiple joints Problem 09/05/2019 12:00:00 AM EST eCW1 ([facility]ly [facility]) M32.9 [id number] History of lupus Problem 09/05/2019 12:00:00 AM EST eCW1 ([facility]) M65.332 [id number] Trigger middle finger of left hand Proble m 09/05/2019 12:00:00 AM EST eCW1 ([facility]) M06.9 [id number] Rheumatoid arthritis involving multiple sites, unspecified rheumatoid factor presence Problem 09/05/2019 12:00:00 AM EST eCW1 ( [facility]) D68.61 [id number] Antiphospholipid antibody syndrome Proble m 09/05/2019 12:00:00 AM EST eCW1 ([facility]ly [facility]) M545 Low back pain Low back pain Diagnosis 10/07/2019 10:43:00 AM EST [facility] Surgeries/Procedures Procedure Description Date Indications Data Source(s) OPH BMTRY PRTL COHER INTRFRMTRY IO LENS PWR VALERIANO Ophtha lmic biometry - IOL Master with IOL calculation (Right Side, WAIVER OF LIABILITY ON FILE (ABN)) 09/08/2020 12:00:00 AM EST [facility] (Andrew Gerber MD [facility]) Intermediate Eye Exam Established Patient (Signi/Sep E analia. & Man.) Intermediate Eye Exam Established Patient (Signi/Sep Eval. & Man.) 09/08/2020 12:00:00 AM EST [facility] (Andrew Gerber MD [facility]) Visual Field (WAIVER OF LIABILITY ON FILE (ABN)) Visua l Field (WAIVER OF LIABILITY ON FILE (ABN)) 08/19/2020 12:00:00 AM EST [place] (Andrew Gerber MD [facility]) Scodi Retina, with interpretation and re port (WAIVER OF LIABILITY ON FILE (ABN)) Scodi Retina, with interpretation and re port (WAIVER OF LIABILITY ON FILE (ABN)) 08/19/2020 12:00:00 AM EST [place] (Sal Gerber MD [facility]) Intermediate Eye Exam Established Patient Intermediate Eye Exam Established Patient 08/10/2020 12:00:00 AM EST [facility] (Sal Gerber MD [facility]) Plain x-ray of pelvis and lower extremity (procedure) 06/27/2020 06:17:00 PM [facility] Xray Elbow complete LT 06/27/2020 06:17:[address] [facility] CT Maxillofacial area w/o cont 06/27/2020 06:17:[address] [facility] CT Head without contrast 06/27/2020 06:17:[address] [facility] Plain x-ray of pelvis and lower extremity (procedure) 06/27/2020 06:17:00 PM [facility] Xray Elbow complete LT 06/27/2020 06:17:[address] [facility] CT Maxillofacial area w/o cont 06/27/2020 06:17:[address] [facility] CT Head without contrast 06/27/2020 06:17:[address] [facility] Plain x-ray of pelvis and lower extremity (procedure) 06/27/2020 06:17:00 PM [facility] Xray Elbow complete LT 06/27/2020 06:17:[address] [facility] CT Maxillofacial area w/o cont 06/27/2020 06:17:[address] [facility] CT Head without contrast 06/27/2020 06:17:[address] [facility] Injection For Nerve Block, Greater Occipital Nerve 06/21/2020 12:00:00 AM EST [facility]) Xray Elbow AP/LAT LT 06/15/2020 12:39:[address] [facility] Xray Elbow AP/LAT LT 06/15/2020 12:39:[address] [facility] Xray Elbow AP/LAT LT 06/15/2020 12:39:[address] [facility] Xray Elbow AP/LAT LT 06/15/2020 12:39:[address] [facility] Xray Elbow AP/LAT LT 06/15/2020 12:39:[address] [facility] Plain x-ray of pelvis and lower extremity (procedure) 06/15/2020 11:57:00 AM [facility] Plain x-ray of pelvis and lower extremity (procedure) 06/15/2020 11:57:00 AM [facility] Plain x-ray of pelvis and lower extremity (procedure) 06/15/2020 11:57:00 AM [facility] Plain x-ray of pelvis and lower extremity (procedure) 06/15/2020 11:57:00 AM [facility] Plain x-ray of pelvis and lower extremity (procedure) 06/15/2020 11:57:00 AM [facility] Visual Field (WAIVER OF LIABILITY ON FILE (ABN)) Visua l Field (WAIVER OF LIABILITY ON FILE (ABN)) 04/26/2020 12:00:00 AM EDT [facility] (Andrew Gerber MD [facility]) Radiography of foot (procedure) 03/30/2020 03:08:00 PM EDT [facility] Radiography of foot (procedure) 03/30/2020 03:08:00 PM EDT [facility] Radiography of foot (procedure) 03/30/2020 03:08:00 PM [facility] Radiography of foot (procedure) 03/30/2020 03:08:00 PM [facility] Radiography of foot (procedure) 03/30/2020 03:08:00 PM [facility] Radiography of foot (procedure) 03/30/2020 03:08:00 PM T [facility] Radiography of foot (procedure) 03/30/2020 03:08:00 PM [facility] Radiography of foot (procedure) 03/30/2020 03:08:00 PM [facility] Surgical / procedural history Spleen Removal, Hystere ctomy Surgical / procedural history Spleen Removal, Hysterectomy 03/26/2020 12:00:00 AM EDT [place] (Andrew Gerber MD [facility]) Medical Eye Exam Medical Eye Exam 03/26/2020 12:00:00 AM EDT [facility] (Andrew Gerber MD [facility]) Medical Eye Exam Medical Eye Exam 03/26/2020 12:00:00 AM EDT [place] (Andrew Gerber MD [facility]) Injection For Nerve Block, Greater Occipital Nerve 02/02/2020 12:00:00 AM EDT [facility]) TSTG ANS FUNCJ CARDIOVAGAL INNERVAJ PARASYMP 0 12:00:00 AM EDT [facility] ([facility] ) TESTING AUTONOMIC NERVOUS SYSTEM FUNCTION 01/09/2020 1 2:00:00 AM EDT [facility] ([facility] ) MRI Cervical without contrast 12/31/2019 03:16:00 PM [facility] MRI Cervical without contrast 12/31/2019 03:16:00 PM [facility] MRI Cervical without contrast 12/31/2019 03:16:00 PM [facility] MRI Cervical without contrast 12/31/2019 03:16:00 PM [facility] MRI Cervical without contrast 12/31/2019 03:16:00 PM [facility] MRI Cervical without contrast 12/31/2019 03:16:00 PM [facility] MRI Cervical without contrast 12/31/2019 03:16:00 PM [facility] MRI Cervical without contrast 12/31/2019 03:16:00 PM [facility] MRI Cervical without contrast 12/31/2019 03:16:00 PM [facility] MRI Cervical without contrast 12/31/2019 03:16:00 PM [facility] Radiography of cervical spine (procedure) 12/02/2019 1 1:05:00 AM [facility] Radiography of cervical spine (procedure) 12/02/2019 1 1:05:00 AM [facility] Radiography of cervical spine (procedure) 12/02/2019 1 1:05:00 AM [facility] Radiography of cervical spine (procedure) 12/02/2019 1 1:05:00 AM [facility] Radiography of cervical spine (procedure) 12/02/2019 1 1:05:00 AM [facility] Radiography of cervical spine (procedure) 12/02/2019 1 1:05:00 AM [facility] Radiography of cervical spine (procedure) 12/02/2019 1 1:05:00 AM [facility] Radiography of cervical spine (procedure) 12/02/2019 1 1:05:00 AM [facility] Radiography of cervical spine (procedure) 12/02/2019 1 1:05:00 AM [facility] Radiography of cervical spine (procedure) 12/02/2019 1 1:05:00 AM [facility] Radiography of cervical spine (procedure) 12/02/2019 1 1:05:00 AM [facility] Needle electromyography, each extremity, with related paraspinal areas, when performed, done with nerve conduction, amplitude and latency/velocity study; complete, five or more muscles studied, innervated by three or more nerves or four or more spinal levels (list separately in addition to the code for primary procedure). 12/01/2019 12:00:00 AM EDT [facility] T ([facility] ) Needle electromyography, each extremity, with related paraspinal areas, when performed, done with nerve conduction, amplitude and latency/velocity study; complete, five or more muscles studied, innervated by three or more nerves or four or more spinal levels (list separately in addition to the code for primary procedure). 12/01/2019 12:00:00 AM EDT [facility] T ([facility] ) Nerve Conduction 11-12 Studies 12/01/2019 12:00:00 AM EDT [facility] ([facility] ) EEG Extended Monitoring, 40-60 minutes 11/26/2019 12:0 0:00 AM EDT [facility] ([facility] ) EEG Extended Monitoring, 40-60 minutes 11/26/2019 12:0 0:00 AM EDT [facility] ([facility] ) Magnetic Resonance Angiography Neck W/O Contrast Materials 11/25/2019 12:00:00 AM EDT [facility] ([facility] ) Magnetic Resonance Angiography Neck W/O Contrast Materials 11/25/2019 12:00:00 AM EDT [facility] ([facility] ) Magnetic Resonance Angiogtaphy Head W/O Contrast Material(S) 11/25/2019 12:00:00 AM EDT [facility] ([facility] ) Magnetic Resonance Angiogtaphy Head W/O Contrast Material(S) 11/25/2019 12:00:00 AM EDT [facility] ([facility] ) ELECTROENCEPHALOGRAM W/REC AWAKE&ASLEEP 11/20/2019 12: 00:00 AM EDT [facility] ([facility] ) ELECTROENCEPHALOGRAM W/REC AWAKE&ASLEEP 11/20/2019 12: 00:00 AM EDT [facility] ([facility] ) MRI BRAIN BRAIN STEM W/O CONTRAST MATERIAL 11/19/2019 12:00:00 AM EDT [facility] ([facility] ) MRI BRAIN BRAIN STEM W/O CONTRAST MATERIAL 11/19/2019 12:00:00 AM EDT [facility] ([facility]) MRI SPINAL CANAL LUMBAR W/O CONTRAST MATERIAL 11/19/19 12:00:00 AM EDT [facility] ([facility]) MRI SPINAL CANAL LUMBAR W/O CONTRAST MATERIAL 11/19/19 12:00:00 AM EDT [facility] ([facility]) Myocardial Perfusion Imaging Tomographic (Spect) Multiple St udies 11/11/2019 12:00:00 AM EDT [facility] ([facility]) Cardiovascular Stress Test Physician Supervision Only 11/11/2019 12:00:00 AM EDT [facility] ([facility]) Cardiovascular Stress Test Interpretation & Report Only 11/11/2019 12:00:00 AM [facility] Echocardiography, Tranthoracic Complete Image Documentation 11/04/2019 12:00:00 AM [facility] ECG Complete 11/03/2019 12:00:[facility] C-Spine without contrast 10/28/2019 12:59:00 PM EDT [facility] CT Head without contrast 10/28/2019 12:59:00 PM EDT [facility] CT C-Spine without contrast 10/28/2019 12:59:00 PM EDT [facility] CT Head without contrast 10/28/2019 12:59:00 PM EDT [facility] CT C-Spine without contrast 10/28/2019 12:59:00 PM EDT [facility] CT Head without contrast 10/28/2019 12:59:00 PM EDT [facility] CT C-Spine without contrast 10/28/2019 12:59:00 PM EDT [facility] CT Head without contrast 10/28/2019 12:59:00 PM EDT [facility] CT C-Spine without contrast 10/28/2019 12:59:00 PM EDT [facility] CT Head without contrast 10/28/2019 12:59:00 PM EDT [facility] CT C-Spine without contrast 10/28/2019 12:59:00 PM EDT [facility] CT Head without contrast 10/28/2019 12:59:00 PM EDT [facility] CT C-Spine without contrast 10/28/2019 12:59:00 PM EDT [facility] CT Head without contrast 10/28/2019 12:59:00 PM EDT [facility] CT C-Spine without contrast 10/28/2019 12:59:00 PM EDT [facility] CT Head without contrast 10/28/2019 12:59:00 PM EDT [facility] CT C-Spine without contrast 10/28/2019 12:59:00 PM EDT [facility] CT Head without contrast 10/28/2019 12:59:00 PM EDT [facility] CT C-Spine without contrast 10/28/2019 12:59:00 PM EDT [facility] CT Head without contrast 10/28/2019 12:59:00 PM EDT [facility] CT C-Spine without contrast 10/28/2019 12:59:00 PM EDT [facility] CT Head without contrast 10/28/2019 12:59:00 PM EDT [facility] CT C-Spine without contrast 10/28/2019 12:59:00 PM EDT [facility] CT Head without contrast 10/28/2019 [facility] 2 FC 09/30/2019 12:00:00 AM EST eCW1 (Formerly [facility]) Office Visit, Est Pt., Level 4 PC 09/30/2019 12:00:00 AM EST eCW1 ([facility]ly [facility], [facility]) X-ray of left knee (procedure) 09/08/2019 02:18:[address] [facility] X-ray of right knee (procedure) 09/08/2019 02:18:[address] [facility] Radiography of shoulder (procedure) 09/08/2019 02:18:[address] [facility] Radiography of hand (procedure) 09/08/2019 02:18:[address] [facility] Radiography of hand (procedure) 09/08/2019 02:18:[address] [facility] X-ray of left knee (procedure) 09/08/2019 02:18:[address] [facility] X-ray of right knee (procedure) 09/08/2019 02:18:[address] [facility] Radiography of shoulder (procedure) 09/08/2019 02:18:[address] [facility] Radiography of hand (procedure) 09/08/2019 02:18:[address] [facility] Radiography of hand (procedure) 09/08/2019 02:18:[address] [facility] X-ray of left knee (procedure) 09/08/2019 02:18:[address] [facility] X-ray of right knee (procedure) 09/08/2019 02:18:[address] [facility] Radiography of shoulder (procedure) 09/08/2019 02:18:[address] [facility] Radiography of hand (procedure) 09/08/2019 02:18:[address] [facility] Radiography of hand (procedure) 09/08/2019 02:18:[address] [facility] X-ray of left knee (procedure) 09/08/2019 02:18:[address] [facility] X-ray of right knee (procedure) 09/08/2019 02:18:[address] [facility] Radiography of shoulder (procedure) 09/08/2019 02:18:[address] [facility] Radiography of hand (procedure) 09/08/2019 02:18:[address] [facility] Radiography of hand (procedure) 09/08/2019 02:18:[address] [facility] X-ray of left knee (procedure) 09/08/2019 02:18:[address] [facility] X-ray of right knee (procedure) 09/08/2019 02:18:[address] [facility] Radiography of shoulder (procedure) 09/08/2019 02:18:[address] [facility] Radiography of hand (procedure) 09/08/2019 02:18:[address] [facility] Radiography of hand (procedure) 09/08/2019 02:18:[address] [facility] X-ray of left knee (procedure) 09/08/2019 02:18:[address] [facility] X-ray of right knee (procedure) 09/08/2019 02:18:[address] [facility] Radiography of shoulder (procedure) 09/08/2019 02:18:[address] [facility] Radiography of hand (procedure) 09/08/2019 02:18:[address] [facility] Radiography of hand (procedure) 09/08/2019 02:18:[address] [facility] X-ray of left knee (procedure) 09/08/2019 02:18:[address] [facility] X-ray of right knee (procedure) 09/08/2019 02:18:[address] [facility] Radiography of shoulder (procedure) 09/08/2019 02:18:[address] [facility] Radiography of hand (procedure) 09/08/2019 02:18:[address] [facility] Radiography of hand (procedure) 09/08/2019 02:18:[address] [facility] X-ray of left knee (procedure) 09/08/2019 02:18:[address] [facility] X-ray of right knee (procedure) 09/08/2019 02:18:[address] [facility] Radiography of shoulder (procedure) 09/08/2019 02:18:[address] [facility] Radiography of hand (procedure) 09/08/2019 02:18:[address] [facility] Radiography of hand (procedure) 09/08/2019 02:18:[address] [facility] X-ray of left knee (procedure) 09/08/2019 02:18:[address] [facility] X-ray of right knee (procedure) 09/08/2019 02:18:[address] [facility] Radiography of shoulder (procedure) 09/08/2019 02:18:[address] [facility] Radiography of hand (procedure) 09/08/2019 02:18:[address] [facility] Radiography of hand (procedure) 09/08/2019 02:18:[address] [facility] X-ray of left knee (procedure) 09/08/2019 02:18:[address] [facility] X-ray of right knee (procedure) 09/08/2019 02:18:[address] [facility] Radiography of shoulder (procedure) 09/08/2019 02:18:[address] [facility] Radiography of hand (procedure) 09/08/2019 02:18:[address] [facility] Radiography of hand (procedure) 09/08/2019 02:18:[address] [facility] X-ray of left knee (procedure) 09/08/2019 02:18:[address] [facility] X-ray of right knee (procedure) 09/08/2019 02:18:[address] [facility] Radiography of shoulder (procedure) 09/08/2019 02:18:[address] [facility] Radiography of hand (procedure) 09/08/2019 02:18:[address] [facility] Radiography of hand (procedure) 09/08/2019 02:18:[address] [facility] X-ray of left knee (procedure) 09/08/2019 02:18:[address] [facility] X-ray of right knee (procedure) 09/08/2019 02:18:[address] [facility] Radiography of shoulder (procedure) 09/08/2019 02:18:[address] [facility] Radiography of hand (procedure) 09/08/2019 02:18:[address] [facility] Radiography of hand (procedure) 09/08/2019 02:18:[address] [facility] X-ray of left knee (procedure) 09/08/2019 02:18:[address] [facility] X-ray of right knee (procedure) 09/08/2019 02:18:[address] [facility] Radiography of shoulder (procedure) 09/08/2019 02:18:[address] [facility] Radiography of hand (procedure) 09/08/2019 02:18:[address] [facility] Radiography of hand (procedure) 09/08/2019 02:18:[address] [facility] X-ray of left knee (procedure) 09/08/2019 02:18:[address] [facility] X-ray of right knee (procedure) 09/08/2019 02:18:[address] [facility] Radiography of shoulder (procedure) 09/08/2019 02:18:[address] [facility] Radiography of hand (procedure) 09/08/2019 02:18:[address] [facility] Radiography of hand (procedure) 09/08/2019 02:18:[address] [facility] X-ray of left knee (procedure) 09/08/2019 02:18:[address] [facility] X-ray of right knee (procedure) 09/08/2019 02:18:[address] [facility] Radiography of shoulder (procedure) 09/08/2019 02:18:[address] [facility] Radiography of hand (procedure) 09/08/2019 02:18:[address] [facility] Radiography of hand (procedure) 09/08/2019 02:18:[address] [facility] Diagnostic radiography of lumbar spine (procedure) 09/08/2019 02:17:[address] [facility] Diagnostic radiography of lumbar spine (procedure) 09/08/2019 02:17:[address] [facility] Diagnostic radiography of lumbar spine (procedure) 09/08/2019 02:17:[address] [facility] Diagnostic radiography of lumbar spine (procedure) 09/08/2019 02:17:[address] [facility] Diagnostic radiography of lumbar spine (procedure) 09/08/2019 02:17:[address] [facility] Diagnostic radiography of lumbar spine (procedure) 09/08/2019 02:17:[address] [facility] Diagnostic radiography of lumbar spine (procedure) 09/08/2019 02:17:[address] [facility] Diagnostic radiography of lumbar spine (procedure) 09/08/2019 02:17:[address] [facility] Diagnostic radiography of lumbar spine (procedure) 09/08/2019 02:17:[address] [facility] Diagnostic radiography of lumbar spine (procedure) 09/08/2019 02:17:[address] [facility] Diagnostic radiography of lumbar spine (procedure) 09/08/2019 02:17:[address] [facility] Diagnostic radiography of lumbar spine (procedure) 09/08/2019 02:17:[address] [facility] Diagnostic radiography of lumbar spine (procedure) 09/08/2019 02:17:[address] [facility] Diagnostic radiography of lumbar spine (procedure) 09/08/2019 02:17:[address] [facility] Diagnostic radiography of lumbar spine (procedure) 09/08/2019 02:17:[address] [facility] Results ID Date Data Source [id number] 09/18/2020 11:00:00 AM EST [facility] Name Value Range Interpretation Code Description Data Julianna rce(s) Supporting Document(s) SARS coronavirus 2 RNA Not Detected [facility] This lab was ordered by [facility] and reported by [facility]. ID Date Data Source [id number] 09/11/2020 11:00:00 AM EST [facility] Name Value Range Interpretation Code Description Data Julianna rce(s) Supporting Document(s) SARS coronavirus 2 RNA Not Detected [facility] This lab was ordered by [facility] and reported by [facility]. ID Date Data Source [id number] 08/25/2020 12:00:00 AM EST [facility] Name Value Range Interpretation Code Description Data Julianna rce(s) Supporting Document(s) SARS-CoV-2 (COVID-19) RNA [Presence] in Respiratory specimen by WHIT with probe detection Not Detected [facility] This lab was ordered by [facility] and reported by [facility]. ID Date Data Source [id number] 07/13/2020 12:46:[address] [facility] Therapy Department [place] MCMANUS : 1950 Date: 07/13/20 [id number] Attending: Keri Church DO PT Outpatient Evaluation [...] LE strengthening and balance in 3 weeks intermediate frame tender goal #1: Patient to demonstrate decreased TUG to less then 10 seconds to reduce fall risk in 6 weeks Care Home Goal #2: Patient to demonstrate ability to perform tandem ambulation without LOB in 6 weeks intermediate frame tender goal #3: Patient to demonstrate 5/5 strength to improve knee pain in 6 weeks Frequency: 2x/week Rehab Potential: Good Visits Reque sted: 12 Expiration date of orders:: 08/24/20 Therapist Sana Harris 07/13/20 1246 I certify this plan of care Keri Sabillon DO 07/13/20 1553 Date Time LAST EDIT: Name Value Range Interpretation Code Description Data Julianna rce(s) Supporting Document(s) ID Date Data Source [id number] 07/02/2020 11:17:[address] [facility] Patient Name: [place] MCMANUS : 1950 Sex: F Pt Unit #: [id number] Location:[facility] Provider: Visit Date/Time: 07/02/20 Primary Insurance: MEDICARE [employer] Secondary Insurance: FOR LIFE Intake Vital Signs 07/02/20 11:17 [...] negative. patient has ordered a rolling walker. Jockey Valet Required: No Is patient in pain?: Yes [...] Screening Screening Have you traveled outside of [facility] or [facility] in the last 14 days.: No Has patient experienced coronavirus symptoms: No [facility] Medical History (Updated 06/29/20 @ 12:12 by [...] always drive intox or ride w/ intox star route mail driver: No water heater temp set < 120 [...] unspecified body region, initial encounter SNOMED Code(s): 105673966 Category: Medical Plan - Magy Howard NP: will place wound care referral. will not change/repeat antibiotic.[facility]: [facility]: Wound Care Referral <Electronically signed by Magy Howard HOGSHEAD HEAD MATCHER> 07/04/20 1122 Name Value Range Interpretation Code Description Data Julianna rce(s) Supporting Document(s) ID Date Data Source [id number] 06/29/2020 11:11:[address] [facility] Patient Name: KY MCMANUS : 1950 Sex: F Pt Unit #: [id number] Location:[facility] Provider: Visit Date/Time: 06/29/20 Primary Insurance: MEDICARE [...] Screening Screening Have you traveled outside of [facility] or [facility] in the last 14 days.: No [...] always drive intox or ride w/ intox star route mail driver: No water heater temp set < 120 [...] - Unspecified fall, initial encounter SNOMED Code(s): 6530370 Category: Medical Plan - Keri Church, DO: [...] daniel. They do not want to see Neurology/[place]. MRI done there I believe. Dr. Chappell/RAEANN [...] rce(s) Supporting Document(s) ID Date Data Source [id number] 06/27/2020 06:56:00 PM [facility] [address] [place] [address] [phone] NAME SEX PT STATUS ACCOUNT NUMBER [place] MCMANUS REG ER [id number] ORDERING PHYSICIAN LOCATION MEDICAL RECORD NO. Apollo Varela MD ER [id number] ATTENDING PHYSICIAN DATE OF DATE OF EXAM/TIME Keri Church DO 1950 06/27/201816 TYPE / EXAM XRAY HIP [...] rce(s) Supporting Document(s) ID Date Data Source [id number] 06/27/2020 06:55:00 PM [facility] [address] [place] [id number] [phone] NAME SEX PT STATUS ACCOUNT NUMBER [place] MCMANUS REG ER [id number] ORDERING PHYSICIAN LOCATION MEDICAL RECORD NO. Apollo Varela MD ER [id number] ATTENDING PHYSICIAN DATE OF DATE OF EXAM/TIME [...] rce(s) Supporting Document(s) ID Date Data Source [id number] 06/27/2020 06:37:00 PM EST [facility] [address] [place] [address] [phone] NAME SEX PT STATUS ACCOUNT NUMBER [place] MCMANUS REG ER [id number] ORDERING PHYSICIAN LOCATION MEDICAL RECORD NO. Apollo Varela MD ER [id number] ATTENDING PHYSICIAN DATE OF DATE OF EXAM/TIME [...] DO Techn: MORSA Trans Dt/Tm: Trans by: LAW Prt Dt/Tm: : Total DLP = 56.00 mGy-cm : Total Radiation Dose = 0.1736 mSv Lifetime Dose: 4.5849 mSv Name Value Range Interpretation Code Description Data Julianna rce(s) Supporting Document(s) ID Date Data Source [id number] 06/27/2020 06:33:00 PM EST [facility] [address] [place] [address] [phone] NAME SEX PT STATUS ACCOUNT NUMBER [place] MCMANUS ER [id number] ORDERING PHYSICIAN LOCATION MEDICAL RECORD NO. Apollo Varela MD ER [id number] ATTENDING PHYSICIAN DATE OF DATE OF EXAM/TIME [...] rce(s) Supporting Document(s) ID Date Data Source [id number] 06/27/2020 06:16:[address] [facility] ED Physician Documentation NAME: KY MCMANUS : 1950 AGE: 69 MR#: [id number] SERVICE DATE: 06/27/[address]: Apollo Varela [...] Yes PMH/PSH from Triage: Medical History (Updated 11/09/20 @ 11:05 by Keri Church DO) Arthritis [...] and easy bruising Allergic/Immunologic: Reports No Symptoms[facility]aints [facility] Arthritis Cavernoma Diabetes mellitus type [...] always drive intox or ride w/ intox star route mail driver: No water heater temp set < 120 [...] Medications Medication reconciliation performed by provider at [facility] charge: Yes Follow Up Care/Instructions Diet/Activity/Wound Care..: [...] by Apollo Varela MD> Apollo Varela MD 06/27/201926 Apollo Varela MD SIGNATURE DA Report Cosigners: D: DARIA 06/27/201815 T: CORALMI 06/27/201815 CC: DO Janette Oliver Value Range Interpretation Code Description Data Julianna rce(s) Supporting Document(s) ID Date Data Source [id number] 06/24/2020 11:43:[address] [facility] Patient Name: KY MCMANUS : 1950 Sex: F Pt Unit #: [id number] Location:[facility] Provider: Visit Date/Time: 06/24/20 Primary Insurance: MEDICARE [...] she has been cleansing with a wound equipment cleaner antibiotic spray 1-2 times a day. Patient notes her hip is still sore and her arm but overall she is feeling better. Jockey Valet Required: No Accompanied by: Self / Same [...] Screening Screening Have you traveled outside of [facility] or [facility] in the last 14 days.: No [...] always drive intox or ride w/ intox star route mail driver: No water heater temp set < 120 [...] unspecified body region, initial encounter SNOMED Code(s): 119800544 Category: Medical Plan - Magy Howard NP: [...] tabs 0RF <Electronically signed by Magy Howard HOGSHEAD HEAD MATCHER> 06/27/201944 Name Value Range Interpretation Code Description Data Julianna rce(s) Supporting Document(s) ID Date Data Source [id number] 06/15/2020 01:01:00 PM [facility] [address] [place] [address] [phone] NAME SEX PT STATUS ACCOUNT NUMBER [place] MCMANUS [facility] ER [id number] ORDERING PHYSICIAN LOCATION MEDICAL RECORD NO. Apollo Valente MD ER [id number] ATTENDING PHYSICIAN DATE OF DATE OF EXAM/TIME Keri Church DO 1950 06/15/20 / 1239 TYPE [...] Trans Dt/Tm: Trans by: DT Prt Dt/Tm: [id number]: Total DLP = 0.00 mGy-cm Fluoroscopy Time (in secs): Name Value Range Interpretation Code Description Data Julianna rce(s) Supporting Document(s) ID Date Data Source [id number] 06/15/2020 12:58:00 PM EST [facility] [address] [place] [id number] [phone] NAME SEX PT STATUS ACCOUNT NUMBER [place] MCMANUS [facility] ER [id number] ORDERING PHYSICIAN LOCATION MEDICAL RECORD NO. Apollo Valente MD ER [id number] ATTENDING PHYSICIAN DATE OF DATE OF EXAM/TIME Keri Church DO 1950 06/15/201156 TYPE / EXAM [...] Trans Dt/Tm: Trans by: DT Prt Dt/Tm: [id number]: Total DLP = 0.00 mGy-cm Fluoroscopy Time (in secs): Name Value Range Interpretation Code Description Data Julianna rce(s) Supporting Document(s) ID Date Data Source [id number] 06/15/2020 11:57:[address] [facility] ED Physician Documentation NAME: KY MCMANUS : 1950 AGE: 69 MR#: [id number] SERVICE DATE: 06/15/[address]: Apollo Valente [...] Hematological/Lymphatic: Reports easy bleeding and easy bruising PFS Medical History Arthritis Cavernoma Diabetes mellitus type [...] always drive intox or ride w/ intox star route mail driver: No water heater temp set < 120 [...] SIGNATURE DA Report Cosigners: D: VEL 06/15/20 1157 T: VEL 06/15/20 1157 CC: DO Janette Oliver Value Range Interpretation Code Description Data Julianna rce(s) Supporting Document(s) ID Date Data Source [id number] 06/14/2020 10:13:[address] [facility] Patient Name: KY MCMANUS : 1950 Sex: F Pt Unit #: [id number] Location:[facility] Provider: Visit Date/Time: 06/14/20 Primary Insurance: MEDICARE [employer] Secondary Insurance: FOR LIFE ADDENDUM Office Procedure Documentation entered by Theresa Middleton 06/14/20 15:39: Immunizations Afluria Qd (3yr up)(PF) Performing Provider: Keri Church DO Administered by: Theresa Middleton on 06/14/20 15:38 Dose Route Admin Location Lot Number Expiration Date [facility] Manufactu rer 0.5 mL IM Left deltoid [id number] 02/02/21 38413-110-75 [employer] VIS Given Date VIS Provided VIS Publication Date 06/14/20 Single Vaccine 19 Eligibility Eligibility Date Funding Source Not [facility] Eligible 06/14/20 Private <Electronically signed by [...] Nurse Note: has been out of the [facility] for MD appointment Accompanied by: Daughter [...] Screening Screening Have you traveled outside of [facility] or [facility] in the last 14 days.: Yes [...] always drive intox or ride w/ intox star route mail driver: No water heater temp set < 120 [...] I10 - Essential (primary) hypertension SNOMED Code(s): 92093414 Category: Medical Plan - Keri Church, DO: New DM2. They would like to try diet before starting Metformin. Labs prior to f/u 6 months. Hx cervical fusion and chronic headaches. Now getting injections in neck with Neurosurgery Dr. Benz. Administrative Encounter. [employer] form filled out and letters on scripts to allow daughter Zuri Mcmanus both on base at [place] to get her meds at [facility] and for Zuri to be her health care proxy. (2) Diabetes mellitus type 2 in obese: Status: Acute Code(s): E11.69 - Type 2 diabetes mellitus with other specified complication; E66.9 - Obesity, unspecified SNOMED Code(s): 95396025 Category: Medical (3) History of CVA (cerebrovascular accident): Status: Chronic Code(s): Z86.73 - Personal history of transient ischemic attack (TIA), and cerebral infarction without residual deficits SNOMED Code(s): 097888294 Category: Medical (4) History of cervical spinal arthrodesis: Status: Acute Code(s): Z98.1 - Arthrodesis status SNOMED Code(s): 9656384990284 Category: Surgical (5) Administrative encounter: Code(s): Z02.9 [...] 4RF Discontinued: methylprednisolone (Medrol (Jarred)) Discontinued Reason: Order orally per package directions 21 ea 0RF <Electronically signed by Keri Church DO> 06/14/20 1108 Name Value Range Interpretation Code Description Data Julianna rce(s) Supporting Document(s) ID Date Data Source [id number] 06/11/2020 03:42:00 PM EST [facility] Name Value Range Interpretation Code Description Data Julianna rce(s) Supporting Document(s) Urine Random Creatinine 27.0 mg/dL [facility] THERE IS NO ESTABLISHED RANGE FOR RANDOM URINE CREATININE Urine Microalbumin Less Than 5.0 0.0-29.9 N [facility] ID Date Data Source [id number] 06/11/2020 11:47:00 AM EST [facility] Name Value Range Interpretation Code Description Data Julianna rce(s) Supporting Document(s) Leukocytes [#/volume] in Blood by Automated count 9.2 10*3/uL 4.45-10 .71 N [facility] Erythrocytes [#/volume] in Blood by Automated count 4.74 10*6/uL 4.20 -5.40 N [facility] Hemoglobin [Moles/volume] in Blood 14.6 g/dL 10.7-15.4 N [facility] Hematocrit [Volume Fraction] of Blood by Automated count 44.6 % 3 7-47 N [facility] Erythrocyte mean corpuscular volume [Ent itic volume] in Cord blood by Automated count 94.1 fL 80-96 N [facility] Erythrocyte mean corpuscular hemoglobin [Entitic mass] by Automated count 30.8 pg 27-31 N [facility] Erythrocyte mean corpuscular hemoglobin concentration [Mass/volume] in Cord blood 32.7 g/dL 33-37 Below low normal [facility] Erythrocyte distribution width [Entitic volume] by Automated cou nt 16 % 11-15 Above high normal [facility] Platelets [#/volume] in Blood by Automated count 329 10*3/uL 130-472 N [facility] Platelet mean volume [Entitic volume] in Blood 10.3 fL 9.1-13.1 N [facility] Neutrophils/100 leukocytes in Blood by Automated count 31.9 % 41-77 Below low normal [facility] Neutrophils [#/volume] in Blood by Automated count 2.9 U 1.7-7.6 N [facility] Lymphocytes/100 leukocytes in Blood by Automated count 50.4 % 14-46 Above high normal [facility] Lymphocytes [#/volume] in Blood by Automated count 4.6 U 0.6-4.6 N [facility] Monocytes/100 leukocytes in Blood by Automated count 11.9 % 4-12 N [facility] Monocytes [#/volume] in Blood by Automated count 1.1 U 0.2-1.2 N [facility] Eosinophils/100 leukocytes in Blood by Automated count 4.9 % 0-7 N [facility] Eosinophils [#/volume] in Blood by Automated count 0.5 U 0.0-0.5 N [facility] Basophils/100 leukocytes in Blood by Automated count 0.8 % 0.4-1 .3 N [facility] Basophils [#/volume] in Blood by Automated count 0.1 U 0.0-0.2 N [facility] NUCLEATED RED BLOOD CELL 0 % [facility] NUCLEATED RED BLOOD CELL# 0 U [facility] Immature granulocytes [Presence] in Blood by Automated count 0-2 N [facility] Immature granulocytes [#/volume] in Blood by Automated count 0.0 U 0-0.1 N [facility] Manual Differential panel - Blood NO [facility] ID Date Data Source [id number] 06/11/2020 03:51:00 PM EST [facility] Name Value Range Interpretation Code Description Data Julianna rce(s) Supporting Document(s) Urea nitrogen [Mass/volume] in Serum or Plasma 9 mg/dL 9-[address] [facility] Sodium [Moles/volume] in Serum or Plasma 144 mmol/L 132-[address] [facility] Potassium [Moles/volume] in Serum or Plasma 4.0 mmol/L 3.5-5.[address] [facility] Chloride [Moles/volume] in Serum or Plasma 109 mmol/L 99-[address] [facility] Carbon dioxide, total [Moles/volume] in Serum or Plasma 32 mmol/ L 20-31 Above high normal [facility] Anion gap in Serum or Plasma 7 mmol/L 8-16 Below low normal [facility] Glucose [Mass/volume] in Serum or Plasma 79 mg/dL 74-106 N [facility] Creatinine 0.7 mg/dL 0.5-1.1 [facility] Glomerular filtration rate/1.73 sq M.pre dicted [Volume Rate/Area] in Serum or Plasma Greater Than 60 ABOVE 60 [facility] Alanine aminotransferase [Enzymatic acti vity/volume] in Serum or Plasma by With P-5'-P 39 U/L 10-49 N [facility] ital Aspartate aminotransferase [Enzymatic ac tivity/volume] in Serum or Plasma by With P-5'-P 51 U/L 0-33 Above high normal [facility] Alkaline phosphatase [Enzymatic activity/volume] in Serum or Plasma 124 U/L 45-129 N [facility] Calcium [Mass/volume] in Serum or Plasma 9.3 mg/dL 8.5-10.1 N [facility] Bilirubin.total [Mass/volume] in Serum or Plasma 0.6 mg/dL 0.3-1.[address] [facility] Albumin [Mass/volume] in Serum or Plasma by Bromocresol purple (BCP) dye binding method 3.5 g/dL 3.2-4.8 [facility] Protein [Mass/volume] in Serum or Plasma 7.5 g/dL 5.7-8.[address] [facility] ID Date Data Source [id number] 06/11/2020 03:58:[address] [facility] Name Value Range Interpretation Code Description Data Julianna rce(s) Supporting Document(s) Hemoglobin A1c % 6.6 % 4.0-6.[address] [facility] The following ranges may be u sed for interpretation of results: HGBA1C degree of glucose control: Greater than 8%: Action Suggested * Less than 7%: Goal of Diabetic Therapy Less than 6%: NormalFactors such as duration of diabetes, adherence to therapyand the age of the patient should also be considered inassessing the degree of blood glucose control.* High risk of developing half-way complications such asretinopathy, nephropathy, neuropathy, cardiopathy, etc. Some danger of hypoglycemic reaction in Type I diabetics.Some glucose intolerant individuals and "Sub Clinical"diabetics may demonstrate HGBA1C levels in this area. Glucose mean value [Moles/volume] in Blood Estimated f rom glycated hemoglobin 143 mg/dL [facility] An A1C of 7% - the goal of diabetic ther apy - is equivalentto an EAG of 154 mg/dl. ID Date Data Source [id number] 06/12/2020 06:26:[address] [facility] Name Value Range Interpretation Code Description Data Julianna rce(s) Supporting Document(s) 25-Hydroxyvitamin D2+25-Hydroxyvitamin D3 [Mass/volume ] in Serum or Plasma 25 ng/mL 30-100 [facility] Vitamin D Status 25-OH Vitamin D :Deficiency: <20 ng/mLInsufficiency: 20 - 29 ng/mLOptimal: > or = 30 ng/mLFor 25-OH Vitamin D testing on patients onD2-supplementation and patients for whom quantitationof D2 and D3 fractions is required, the QuestAssureD(TM)25- [place] VIT D, (D2,D3), LC/MS/MS is recommended: ordercode 76454 (patients >2yrs).See Note 1Note 1For additional information, please refer tohttp://education.D square nv/faq/TDU601(This link is being provided for informational/educational purposes only.)THIS TEST WAS PERFORMED AT:[address] [address]DIANA PAREDES MD ID Date Data Source [id number] 06/11/2020 03:51:00 PM EST [facility] Name Value Range Interpretation Code Description Data Jluianna rce(s) Supporting Document(s) Triglycerides 141 mg/dL 0-150 [facility] Cholesterol 202 mg/dL 120-200 Above high normal [facility] HDL Cholesterol 50 mg/dL [facility] HDL Less than 40 mg/dL: Major risk for CHDHDL Greater than 59 mg/dL: Low risk for CHD LDL Cholesterol, Calc 124 mg/dL 0-100 Above high normal [facility] ID Date Data Source [id number] 05/10/2020 01:15:00 PM EDT [facility] Name Value Range Interpretation Code Description Data Julianna rce(s) Supporting Document(s) Leukocytes [#/volume] in Blood by Automated count 14.1 10*3/uL 4.45-10.71 Above high normal [facility] Erythrocytes [#/volume] in Blood by Automated count 4.64 10*6/uL 4.20 -5.[address] [facility] Hemoglobin [Moles/volume] in Blood 14.2 g/dL 10.7-15.[address] [facility] Hematocrit [Volume Fraction] of Blood by Automated count 42.5 % 3 7-[address] [facility] Erythrocyte mean corpuscular volume [Ent itic volume] in Cord blood by Automated count 91.6 fL 80-96 N [facility] ital Erythrocyte mean corpuscular hemoglobin [Entitic mass] by Automated count 30.6 pg 27-31 [facility] Erythrocyte mean corpuscular hemoglobin concentration [Mass/volume] in Cord blood 33.4 g/dL 33-37 N [facility] ital Erythrocyte distribution width [Entitic volume] by Automated cou nt 16 % 11-15 Above high normal [facility] Platelets [#/volume] in Blood by Automated count 363 10*3/uL 130-472 N [facility] Platelet mean volume [Entitic volume] in Blood 10.4 fL 9.1-13.1 N [facility] Neutrophils/100 leukocytes in Blood by Automated count 51.9 % 41- 77 N [facility] Neutrophils [#/volume] in Blood by Automated count 7.3 U 1.7-7.6 N [facility] Lymphocytes/100 leukocytes in Blood by Automated count 33.3 % 14- 46 N [facility] Lymphocytes [#/volume] in Blood by Automated count 4.7 U 0.6-4.6 Above high normal [facility] Monocytes/100 leukocytes in Blood by Automated count 13.1 % 4-12 Above high normal [facility] Monocytes [#/volume] in Blood by Automated count 1.9 U 0.2-1.2 Above high normal [facility] Eosinophils/100 leukocytes in Blood by Automated count 1.0 % 0-7 N [facility] Eosinophils [#/volume] in Blood by Automated count 0.1 U 0.0-0.5 N [facility] Basophils/100 leukocytes in Blood by Automated count 0.3 % 0.4-1.3 Below low normal [facility] Basophils [#/volume] in Blood by Automated count 0.0 U 0.0-0.[address] [facility] NUCLEATED RED BLOOD CELL 0 % [facility] NUCLEATED RED BLOOD CELL# 0 U [facility] Immature granulocytes [Presence] in Blood by Automated count 0-2 N [facility] Immature granulocytes [#/volume] in Blood by Automated count 0.1 U 0-0.1 N [facility] Manual Differential panel - Blood NO [facility] ID Date Data Source [id number] 05/10/2020 01:17:00 PM EDT [facility] Name Value Range Interpretation Code Description Data Julianna rce(s) Supporting Document(s) Urea nitrogen [Mass/volume] in Serum or Plasma 15 mg/dL 9-23 N [facility] Sodium [Moles/volume] in Serum or Plasma 142 mmol/L 132-[address] [facility] Potassium [Moles/volume] in Serum or Plasma 4.3 mmol/L 3.5-5.[address] [facility] Chloride [Moles/volume] in Serum or Plasma 108 mmol/L 99-[address] [facility] Carbon dioxide, total [Moles/volume] in Serum or Plasma 29 mmol/L 20 -31 N [facility] Anion gap in Serum or Plasma 9 mmol/L 8-16 [facility] Glucose [Mass/volume] in Serum or Plasma 137 mg/dL 74-106 Above high normal [facility] Creatinine 0.7 mg/dL 0.5-1.1 [facility] Glomerular filtration rate/1.73 sq M.pre dicted [Volume Rate/Area] in Serum or Plasma Greater Than 60 ABOVE 60 [facility] Alanine aminotransferase [Enzymatic acti vity/volume] in Serum or Plasma by With P-5'-P 67 U/L 10-49 Above high normal [facility] Aspartate aminotransferase [Enzymatic ac tivity/volume] in Serum or Plasma by With P-5'-P 64 U/L 0-33 Above high normal [facility] Alkaline phosphatase [Enzymatic activity/volume] in Serum or Plasma 109 U/L 45-[address] [facility] Calcium [Mass/volume] in Serum or Plasma 9.0 mg/dL 8.5-10.[address] [facility] Bilirubin.total [Mass/volume] in Serum or Plasma 0.8 mg/dL 0.3-1.[address] [facility] Albumin [Mass/volume] in Serum or Plasma by Bromocresol purple (BCP) dye binding method 3.1 g/dL 3.2-4.8 Below low normal [facility] Protein [Mass/volume] in Serum or Plasma 7.6 g/dL 5.7-8.[address] [facility] ID Date Data Source [id number] 05/02/2020 09:31:00 AM EDT [facility] ED Physician Documentation NAME: KATI MCMANUSJOSIANE Desai : 1950 AGE: 69 MR#: [id number] SERVICE DATE: 05/02/[address]: Apollo Valente MD PRIMARY CARE DR: Keri Church DO ROOM#: HPI (Adult, General) General Chief Complaint: Musculoskeletal Stated Complaint: NECK PAIN Resident [facility], travel outisde home, exposure to hot tubs:: [...] always drive intox or ride w/ intox 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 It has not been read yet. Jockey Valet Required: No Accompanied by: Self / Same [...] Screening Screening Have you traveled outside of [facility] or [facility] in the last 14 days.: No [...] always drive intox or ride w/ intox star route mail driver: No water heater temp set < 120 [...] rce(s) Supporting Document(s) ID Date Data Source [id number] 03/30/2020 03:09:00 PM EDT [facility] [address] [place] [address] [phone] NAME SEX PT STATUS ACCOUNT NUMBER [place] MCMANUS Obed REG REF [id number] ORDERING PHYSICIAN LOCATION MEDICAL RECORD NO. Keri Church DO RAD [id number] ATTENDING PHYSICIAN DATE OF DATE OF EXAM/TIME Keri Church DO 1950 03/30/20 / 1508 TYPE / EXAM Xray Foot Complete RT REASON FOR EXAM Stub toe foot,bruise ,painful R/O fracture [place] MCMANUS [id number] 1950 ADDENDUM CRITICAL RESULT COMMUNICATED TO ARY [...] Pasha Uribe MD; Keri Church DO Techn: CARAI Trans Dt/Tm: Trans by: DT Prt Dt/Tm: [id number]: Total DLP = 0.00 mGy-cm Fluoroscopy Time (in secs): Name Value Range Interpretation Code Description Data Julianna rce(s) Supporting Document(s) ID Date Data Source [id number] 03/08/2020 10:20:00 AM EDT [facility] Patient Name: KY MCMANUS : 1950 Sex: F Pt Unit #: [id number] Location:[facility] Provider: Visit Date/Time: 03/08/20 Primary Insurance: MEDICARE [employer] Secondary Insurance: FOR LIFE Intake Vital Signs 03/08/20 10:22 Current Height 4 ft 10 in Current Weight 158 lb 2 oz Weight Measurement Method Standing Scale BMI 33.0 BP 122/78 Position Sitting Respiration 18 Pulse 100 Temp 98.2 F Temp Source Oral Pulse Oximetry (%) 97 Oxygen Delivery Method room air Intake-Medicare Annual Visit Reasons: Medicare Annual Wellness - Initial Jockey Valet Required: No Accompanied by: Daughter Is patient [...] Screening Screening Have you traveled outside of [facility] in the last 14 days.: No Has patient experienced coronavirus symptoms: No [facility] Medical History (Updated 02/20/20 @ 13:30 by [...] always drive intox or ride w/ intox 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 Vision [place] [facility] - right eye: 20/50 [facility] - left eye: 20/40 [facility] - bilateral eyes: 20/40 Functional Assessment Bathing: Independent Dressing: Independent Toileting: Independent Transferring: Independent Continence: Independent Feeding: Independent Total Score: 6 Home Safety Home Safety: Reports Bathroom: Grab bars, Lighting: Adequate and Stairs: Handrail available; Denies [place]: No throw rugs Hearing Hearing Left Ear: [...] medical co-morbidities. Last labs 11/24/19. She saw [facility] 12/10/19 and they told her that [...] and colleagues, with an educational madhav from [employer]. Electronically Signed By: <Electronically signed by Keri Church DO> Date/Time Signed: 03/08/20 1134 Name Value Range Interpretation Code Description Data Julianna rce(s) Supporting Document(s) ID Date Data Source [id number] 02/20/2020 12:56:00 PM EDT [facility] Patient Name: [place] MCMANUS : 1950 Sex: F Pt Unit #: [id number] Location:[facility] Provider: Visit Date/Time: 02/20/20 Primary Insurance: MEDICARE [employer] Secondary Insurance: [employer] FOR LIFE Intake Vital Signs 02/20/20 12:58 [...] is up to date on all shots. Jockey Valet Required: No Accompanied by: Daughter Is patient [...] Screening Screening Have you traveled outside of [facility] in the last 14 days.: No [...] always drive intox or ride w/ intox star route mail driver: No water heater temp set < 120 [...] (2) Laceration: Status: Acute SNOMED Code(s) : [id number] Category: Medical Additional Comments Additional Comments: patient and daughter advised to continue using Neosporin and monitoring for signs of infection. They are to follow up here or with PCP for any concerns of infection. Electronically Signed By: <Electronically signed by Anum MEHTA> Date/Time Signed: 02/20/20 1330 Name Value Range Interpretation Code Description Data Julianna rce(s) Supporting Document(s) ID Date Data Source [id number] 02/05/2020 01:45:00 PM EDT [facility] Name Value Range Interpretation Code Description Data Julianna rce(s) Supporting Document(s) Prothrombin Time (Patient) 24.3 s 9.6-12.3 Above high normal [facility] INR 2.4 0.9-1.1 Above high normal [facility] THE INR IS OPERATIONALLY DEFINED FOR ALEXIS SH PLASMA FROMPATIENTS STABILIZED ON ORAL ANTICOAGULANTS.ROUTINE ANTICOAGULANT THERAPY 2.0-3.0RECURRENT SYSTEMIC EMBOLISM/HEART VALVE REPLACEMENT 2.5-3.5 ID Date Data Source [id number] 01/02/2020 10:31:00 AM EDT [facility] [address] [place], [place] [address] [phone] NAME SEX PT STATUS ACCOUNT NUMBER [place] MCMANUS REG REF [id number] ORDERING PHYSICIAN LOCATION MEDICAL RECORD NO. Yan Coto DO MRI [id number] ATTENDING PHYSICIAN DATE OF DATE OF EXAM/TIME RanjitKeri NOBLE 1950 12/31/19 / 1515 TYPE / EXAM MRI Cervical without contrast [...] foraminal stenosis. C3-C4: A moderate, broad-based disc [place] complex is seen. It is associated with [...] rce(s) Supporting Document(s) ID Date Data Source [id number] 12/22/2019 02:54:00 PM EDT [facility] Name Value Range Interpretation Code Description Data Julianna rce(s) Supporting Document(s) Prothrombin Time (Patient) 26.4 s 9.6-12.3 Above high normal [facility] INR 2.7 0.9-1.1 Above high normal [facility] THE INR IS OPERATIONALLY DEFINED FOR ALEXIS SH PLASMA FROMPATIENTS STABILIZED ON ORAL ANTICOAGULANTS.ROUTINE ANTICOAGULANT THERAPY 2.0-3.0RECURRENT SYSTEMIC EMBOLISM/HEART VALVE REPLACEMENT 2.5-3.5 ID Date Data Source [id number] 12/25/2019 02:26:00 PM EDT [facility] Name Value Range Interpretation Code Description Data Julianna rce(s) Supporting Document(s) Pathologist interpretation of Unspecified specimen tests . [facility] Lymphocytosis. No significant diagnostic immunophenotypic abnormalitydetected. (See comment.) Annotation comment [Interpretation] Narrative Comment . [facility] Lymphocytosis is due to increases in T s uppressor cells and B cells.Increases in multiple lymphocyte subsets may suggest a reactive process.Clinical correlation is recommended. Specimen source [Identifier] of Unspecified specimen . [facility] Peripheral blood Alcohol-substance abuse rehabilitation t reatment plan, Assessment information Set Comment . [facility] ital No monoclonal B cell population is [...] cells/100 cells in Unspecified specimen Comment . [facility] 96% Cellularity assessment [Interpretation] in Unspecified specimen by Flow cytometry (FC) Narrative Comment . [facility] 8 color analysis with CD45/SSC Immunophenotyping study Comment . [facility] CD2 Normal CD3 Lila lCD4 Normal CD5 NormalCD7 Normal CD8 BopmvbRL12 Normal CD11b RjtkruTD11 Normal CD14 CioyonWH12 Normal CD19 YxfguaBS84 Normal CD23 See VkheYW92 Normal CD34 DkmqymDC24 Normal CD45 HpbdqqXZ26 See Text CD57 IhglayHD908 Normal HLA-DR NormalKAPPA Normal LAMBDA BtzyszCE15 Normal Pathologist name . [facility] Jerod Del Rosario. Clinical information Comment . [facility] LymphocytosisAccompanying CBC dated 12/16 shows:WBC count 10.9, Hgb 14.5, Garret 3.4, Lym 5.5, Lym% 50, Mon 1.3, Mon% 12, Eos0.6, Eos% 5, Bas 0.1, Plt 289K. Lymphoma panel - Unspecified specimen by Flow cytometry (FC) Comment . [facility] Each antibody in this assay was utilized to assess forpotential abnormalities of studied cell populations or tocharacterize identified abnormalities.This test was developed and its performance characteristicsdetermined by [facility]. It has not been cleared or approvedby the U.S. Food and Drug Administration.The FDA has determined that such clearance or approval isnot necessary. This test is used for clinical purposes. Itshould not be regarded as investigational or for research.Performed at: -Y - [facility] [id number] [place], [place] [id number] Director: Alphonse Putnam MD, Phone: [phone] at: TG - [facility] [id number] [place], [place] [id number] Director: Alphonse Putnam MD, Phone: [phone] ID Date Data Source [id number] 12/17/2019 01:08:00 PM EDT [facility] @12/17/19 1242: MANUAL DIFF added. RFLXG = DIFF. @12/17/19 1242: MANUAL DIFF added. RFLXG = DIFF. @12/17/19 1242: MANUAL DIFF added. RFLXG = DIFF. Name Value Range Interpretation Code Description Data Julianna rce(s) Supporting Document(s) Prothrombin Time (Patient) 18.6 s 9.6-12.3 Above high normal [facility] INR 1.9 0.9-1.1 Above high normal [facility] THE INR IS OPERATIONALLY DEFINED FOR ALEXIS SH PLASMA FROMPATIENTS STABILIZED ON ORAL ANTICOAGULANTS.ROUTINE ANTICOAGULANT THERAPY 2.0-3.0RECURRENT SYSTEMIC EMBOLISM/HEART VALVE REPLACEMENT 2.5-3.5 ID Date Data Source [id number] 12/17/2019 01:40:00 PM EDT [facility] @12/17/19 1242: MANUAL DIFF added. RFLXG = DIFF. @12/17/19 1242: MANUAL DIFF added. RFLXG = DIFF. @12/17/19 1242: MANUAL DIFF added. RFLXG = DIFF. Name Value Range Interpretation Code Description Data Julianna rce(s) Supporting Document(s) Leukocytes [#/volume] in Blood by Automated count 10.9 10*3/uL 4.45-10.71 Above high normal [facility] Erythrocytes [#/volume] in Blood by Automated count 4.56 10*6/uL 4.20 -5.40 N [facility] Hemoglobin [Moles/volume] in Blood 14.5 g/dL 10.7-15.4 N [facility] Hematocrit [Volume Fraction] of Blood by Automated count 43.5 % 3 7-47 N [facility] Erythrocyte mean corpuscular volume [Ent itic volume] in Cord blood by Automated count 95.4 fL 80-96 N [facility] ital Erythrocyte mean corpuscular hemoglobin [Entitic mass] by Automated count 31.8 pg 27-31 Above high normal [facility] Erythrocyte mean corpuscular hemoglobin concentration [Mass/volume] in Cord blood 33.3 g/dL 33-37 N [facility] ital Erythrocyte distribution width [Entitic volume] by Automated cou nt 16 % 11-15 Above high normal [facility] Platelets [#/volume] in Blood by Automated count 289 10*3/uL 130-472 N [facility] Platelet mean volume [Entitic volume] in Blood 10.9 fL 9.1-13.1 N [facility] Neutrophils/100 leukocytes in Blood by Automated count 31.6 % 41-77 Below low normal [facility] Neutrophils [#/volume] in Blood by Automated count 3.4 U 1.7-7.6 N [facility] Lymphocytes/100 leukocytes in Blood by Automated count 50.2 % 14-46 Above high normal [facility] Lymphocytes [#/volume] in Blood by Automated count 5.5 U 0.6-4.6 Above high normal [facility] @Review & document.@Send for Pathologist review if no previous history Monocytes/100 leukocytes in Blood by Automated count 12.0 % 4-12 N [facility] Monocytes [#/volume] in Blood by Automated count 1.3 U 0.2-1.2 Above high normal [facility] Eosinophils/100 leukocytes in Blood by Automated count 5.1 % 0-7 N [facility] Eosinophils [#/volume] in Blood by Automated count 0.6 U 0.0-0.5 Above high normal [facility] Basophils/100 leukocytes in Blood by Automated count 0.9 % 0.4-1 .3 N [facility] Basophils [#/volume] in Blood by Automated count 0.1 U 0.0-0.2 N [facility] NUCLEATED RED BLOOD CELL 0 % [facility] NUCLEATED RED BLOOD CELL# 0 U [facility] Immature granulocytes [Presence] in Blood by Automated count 0-2 N [facility] Immature granulocytes [#/volume] in Blood by Automated count 0.0 U 0-0.1 N [facility] Manual Differential panel - Blood Manual Diff Added [facility] ID Date Data Source [id number] 12/17/2019 01:40:00 PM EDT [facility] @12/17/19 1242: MANUAL DIFF added. RFLXG = DIFF. @12/17/19 1242: MANUAL DIFF added. RFLXG = DIFF. @12/17/19 1242: MANUAL DIFF added. RFLXG = DIFF. Name Value Range Interpretation Code Description Data Julianna rce(s) Supporting Document(s) Cells counted [#] 100 [facility] Neutrophils [#/volume] in Blood by Manual count 30 % 41-77 Below low normal [facility] Lymphocytes [#/volume] in Blood by Manual count 55 % 14-46 Above high normal [facility] Monocytes [#/volume] in Blood by Manual count 11 % 4-12 N [facility] Eosinophils [#/volume] in Blood by Manual count 4 % 0-7 N [facility] Platelets [#/volume] in Blood by Estimate APPEARS NORMAL NORMAL [facility] Morphology [Interpretation] in Blood Narrative APPEARS NORMAL NORMAL [facility] ID Date Data Source [id number] 12/17/2019 01:40:00 PM EDT [facility] @12/17/19 1242: MANUAL DIFF added. RFLXG = DIFF. @12/17/19 1242: MANUAL DIFF added. RFLXG = DIFF. @12/17/19 1242: MANUAL DIFF added. RFLXG = DIFF. Name Value Range Interpretation Code Description Data Julianna rce(s) Supporting Document(s) Pathologist interpretation of Blood tests [facility] ID Date Data Source [id number] 12/16/2019 04:10:00 PM EDT [facility] Patient Name: [place] MCMANUS : 1950 Sex: F Pt Unit #: [id number] Location:[facility] Provider: Visit Date/Time: 12/16/19 Primary Insurance: MEDICARE [...] Screening Screening Have you traveled outside of [facility] in the last 14 days.: No Has patient experienced coronavirus symptoms: No [facility] Medical History (Updated 10/28/19 @ 14:47 by Keri Ranjit, DO) Arthritis (Acute) Cavernoma (Acute) Environmental allergies [...] always drive intox or ride w/ intox star route mail driver: No water heater temp set < 120 [...] by Keri Church DO> Date/Time Signed: 12/16/19 2242 Name Value Range Interpretation Code Description Data Julianna rce(s) Supporting Document(s) ID Date Data Source [id number] 12/02/2019 11:07:00 AM EDT [facility] [address] [place] [address] [phone] NAME SEX PT STATUS ACCOUNT NUMBER [place] MCMANUS REG REF [id number] ORDERING PHYSICIAN LOCATION MEDICAL RECORD NO. Keri Church RAD [id number] ATTENDING PHYSICIAN DATE OF DATE OF EXAM/TIME Keri Church DO 1950 12/02/19 / 1104 TYPE [...] rce(s) Supporting Document(s) ID Date Data Source [id number] 11/25/2019 09:39:00 AM EDT [facility] Patient Name: [place] MCMANUS : 1950 Sex: F Pt Unit #: [id number] Location:[facility] Provider: Visit Date/Time: 11/25/19 Primary Insurance: MEDICARE [...] Screening Screening Have you traveled outside of [facility] in the last 14 days.: No Has patient experienced coronavirus symptoms: No [facility] Medical History (Updated 10/28/19 @ 14:47 by Keri Ranjit, DO) Arthritis (Acute) Cavernoma (Acute) Environmental allergies [...] always drive intox or ride w/ intox star route mail driver: No water heater temp set < 120 [...] on Fioricet and it is not helping. 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 MRA today and EEG this week. She states the Fiorcet is taking the edge off and that is it. She states she has a headache for over a month. She saw [facility] HEAD MATCHER Lindsay Marquez and she was concerned for [...] R51 - Headache Orders Other Medications: New: hxeloefqxy-uikjrrxwsdyar-dzpe 50-325-40 mg 1 cap PO Q12H PRN 30 caps 0RF pain Discontinued: amoxicillin-pot clavulanate 875-125 mg (Augmentin) Discontinued Reason: MD Order 1 tab PO BID 20 tabs 0RF Electronically Signed By: <Electronically signed by Keri Church DO> Date/Time Signed: 11/25/19 1106 Name Value Range Interpretation Code Description Data Julianna rce(s) Supporting Document(s) ID Date Data Source [id number] 11/24/2019 10:45:00 AM EDT [facility] Name Value Range Interpretation Code Description Data Julianna rce(s) Supporting Document(s) Urine Random Creatinine 110.0 mg/dL [facility] THERE IS NO ESTABLISHED RANGE FOR RANDOM URINE CREATININE Urine Microalbumin 12.6 mg/L 0.0-29.9 [facility] Ur Malb/Cre Ratio (ACR) 11.4 ug/mg 0.0-30.[address] [facility] ID Date Data Source [id number] 11/24/2019 09:48:00 AM EDT [facility] Name Value Range Interpretation Code Description Data Julianna rce(s) Supporting Document(s) Leukocytes [#/volume] in Blood by Automated count 8.8 10*3/uL 4.45-[address] [facility] Erythrocytes [#/volume] in Blood by Automated count 4.39 10*6/uL 4.20 -5.[address] [facility] Hemoglobin [Moles/volume] in Blood 14.0 g/dL 10.7-15.[address] [facility] Hematocrit [Volume Fraction] of Blood by Automated count 41.1 % 3 7-[address] [facility] Erythrocyte mean corpuscular volume [Ent itic volume] in Cord blood by Automated count 93.6 fL 80-96 N [facility] ital Erythrocyte mean corpuscular hemoglobin [Entitic mass] by Automated count 31.9 pg 27-31 Above high normal [facility] spital Erythrocyte mean corpuscular hemoglobin concentration [Mass/volume] in Cord blood 34.1 g/dL 33-37 N [facility] ital Erythrocyte distribution width [Entitic volume] by Automated cou nt 16 % 11-15 Above high normal [facility] Platelets [#/volume] in Blood by Automated count 304 10*3/uL 130-472 N [facility] Platelet mean volume [Entitic volume] in Blood 11.1 fL 9.1-13.1 N [facility] Neutrophils/100 leukocytes in Blood by Automated count 36.7 % 41-77 Below low normal [facility] Neutrophils [#/volume] in Blood by Automated count 3.2 U 1.7-7.6 N [facility] Lymphocytes/100 leukocytes in Blood by Automated count 41.0 % 14- 46 N [facility] Lymphocytes [#/volume] in Blood by Automated count 3.6 U 0.6-4.6 N [facility] Monocytes/100 leukocytes in Blood by Automated count 11.4 % 4-12 N [facility] Monocytes [#/volume] in Blood by Automated count 1.0 U 0.2-1.2 N [facility] Eosinophils/100 leukocytes in Blood by Automated count 9.8 % 0-7 Above high normal [facility] Eosinophils [#/volume] in Blood by Automated count 0.9 U 0.0-0.5 Above high normal [facility] Basophils/100 leukocytes in Blood by Automated count 0.9 % 0.4-1 .3 N [facility] Basophils [#/volume] in Blood by Automated count 0.1 U 0.0-0.2 N [facility] NUCLEATED RED BLOOD CELL 0 % [facility] NUCLEATED RED BLOOD CELL# 0 U [facility] Immature granulocytes [Presence] in Blood by Automated count 0-2 N [facility] Immature granulocytes [#/volume] in Blood by Automated count 0.0 U 0-0.[address] [facility] Manual Differential panel - Blood NO [facility] ID Date Data Source [id number] 11/24/2019 10:09:00 AM EDT [facility] Name Value Range Interpretation Code Description Data Julianna rce(s) Supporting Document(s) Hemoglobin A1c % 6.4 % 4.0-6.[address] [facility] The following ranges may be u sed for interpretation of results: HGBA1C degree of glucose control: Greater than 8%: Action Suggested * Less than 7%: Goal of Diabetic Therapy Less than 6%: NormalFactors such as duration of diabetes, adherence to therapyand the age of the patient should also be considered inassessing the degree of blood glucose control.* High risk of developing half-way complications such asretinopathy, nephropathy, neuropathy, cardiopathy, etc. Some danger of hypoglycemic reaction in Type I diabetics.Some glucose intolerant individuals and "Sub Clinical"diabetics may demonstrate HGBA1C levels in this area. Glucose mean value [Moles/volume] in Blood Estimated f rom glycated hemoglobin 137 mg/dL [facility] An A1C of 7% - the goal of diabetic ther apy - is equivalentto an EAG of 154 mg/dl. ID Date Data Source [id number] 11/24/2019 10:24:00 AM EDT [facility] Name Value Range Interpretation Code Description Data Julianna rce(s) Supporting Document(s) Urea nitrogen [Mass/volume] in Serum or Plasma 8 mg/dL 9-23 Below low normal [facility] Sodium [Moles/volume] in Serum or Plasma 144 mmol/L 132-146 N [facility] Potassium [Moles/volume] in Serum or Plasma 3.9 mmol/L 3.5-5.[address] [facility] Chloride [Moles/volume] in Serum or Plasma 112 mmol/L 99-109 Above high normal [facility] Carbon dioxide, total [Moles/volume] in Serum or Plasma 27 mmol/L 20 -31 N [facility] Anion gap in Serum or Plasma 9 mmol/L 8-[address] [facility] Glucose [Mass/volume] in Serum or Plasma 111 mg/dL 74-106 Above high normal [facility] Creatinine 0.7 mg/dL 0.5-1.1 [facility] Glomerular filtration rate/1.73 sq M.pre dicted [Volume Rate/Area] in Serum or Plasma Greater Than 60 ABOVE 60 [facility] Alanine aminotransferase [Enzymatic acti vity/volume] in Serum or Plasma by With P-5'-P 48 U/L 10-49 N [facility] ital Aspartate aminotransferase [Enzymatic ac tivity/volume] in Serum or Plasma by With P-5'-P 61 U/L 0-33 Above high normal [facility] Alkaline phosphatase [Enzymatic activity/volume] in Serum or Plasma 113 U/L 45-129 N [facility] Calcium [Mass/volume] in Serum or Plasma 8.7 mg/dL 8.5-10.[address] [facility] Bilirubin.total [Mass/volume] in Serum or Plasma 0.5 mg/dL 0.3-1.[address] [facility] Albumin [Mass/volume] in Serum or Plasma by Bromocresol purple (BCP) dye binding method 3.4 g/dL 3.2-4.8 [facility] Protein [Mass/volume] in Serum or Plasma 7.3 g/dL 5.7-8.[address] [facility] ID Date Data Source [id number] 11/24/2019 10:24:00 AM [facility] Name Value Range Interpretation Code Description Data Julianna rce(s) Supporting Document(s) Triglycerides 187 mg/dL 0-150 Above high normal [facility] Cholesterol 203 mg/dL 120-200 Above high normal [facility] HDL Cholesterol 52 mg/dL [facility] HDL Less than 40 mg/dL: Major risk for CHDHDL Greater than 59 mg/dL: Low risk for CHD LDL Cholesterol, Calc 114 mg/dL 0-100 Above high normal [facility] ID Date Data Source [id number] 11/24/2019 10:24:00 AM [facility] Name Value Range Interpretation Code Description Data Julianna rce(s) Supporting Document(s) C reactive protein [Mass/volume] in Serum or Plasma 9.1 mg/L 0.0-5.0 Above high normal [facility] ID Date Data Source [id number] 11/24/2019 10:24:00 AM [facility] Name Value Range Interpretation Code Description Data Julianna rce(s) Supporting Document(s) Thyrotropin [Units/volume] in Serum or Plasma by Detec tion limit <= 0.005 mIU/L 3.50 u[iU]/mL 0.35-5.50 [facility] al ID Date Data Source [id number] 11/21/2019 03:41:00 PM [facility] Not Collected Reason:: DID NOT PASS WITH MCR CHECK,ABN SIGNEDTEST(S) ORDERED:: A1C Name Value Range Interpretation Code Description Data Julianna rce(s) Supporting Document(s) Laboratory A1C [facility] Laboratory studies (set) DID NOT PASS WITH MCR CHECK,ABN SIGNED [facility] Test(s) that were ordered on thisrequisi ton were not collected. ID Date Data Source [id number] 11/21/2019 03:40:00 PM EDT [facility] ([facility], ) Name Value Range Interpretation Code Description Data Julianna rce(s) Supporting Document(s) Laboratory Laboratory test result [facility] ([facility], ) I10,K21.9,R73.03,M06.9,Z86.73 Laboratory studies (set) Laboratory test result [facility] ([facility], ) I10,K21.9,R73.03,M06.9,Z86.73 ID Date Data Source [id number] 11/21/2019 04:48:00 PM EDT [facility] Test(s) 575636-Vasypka B6was developed a nd its performance characteristicsdetermined by [facility]. It has not been cleared or approvedby the Food and Drug Administration.Test(s) 261791-Dwc. B1, Whole Bloodwas developed and its performance characteristicsdetermined by [facility]. It has not been cleared or approvedby the Food and Drug Administration.Test(s) 701513-Prtvaps E(Alpha Tocopherol); 242617-Fejzgmo E(Gamma Tocopherol)was developed and its performance characteristicsdetermined by [facility]. It has not been cleared or approvedby the Food and Drug Administration. Test(s) 735252-Otafntu B6was developed a nd its performance characteristicsdetermined by [facility]. It has not been cleared or approvedby the Food and Drug Administration.Test(s) 777928-Emn. B1, Whole Bloodwas developed and its performance characteristicsdetermined by [facility]. It has not been cleared or approvedby the Food and Drug Administration.Test(s) 001894-Ygspkzo E(Alpha Tocopherol); 756166-Kamifue E(Gamma Tocopherol)was developed and its performance characteristicsdetermined by [facility]. It has not been cleared or approvedby the Food and Drug Administration. Test(s) 278820-Xlchlcf B6was developed a nd its performance characteristicsdetermined by [facility]. It has not been cleared or approvedby the Food and Drug Administration.Test(s) 838430-Ziv. B1, Whole Bloodwas developed and its performance characteristicsdetermined by [facility]. It has not been cleared or approvedby the Food and Drug Administration.Test(s) 726370-Ucnvqrj E(Alpha Tocopherol); 369199-Xbdtdfb E(Gamma Tocopherol)was developed and its performance characteristicsdetermined by [facility]. It has not been cleared or approvedby the Food and Drug Administration. Test(s) 126167-Jcvjdsa B6was developed a nd its performance characteristicsdetermined by [facility]. It has not been cleared or approvedby the Food and Drug Administration.Test(s) 971610-Ohn. B1, Whole Bloodwas developed and its performance characteristicsdetermined by [facility]. It has not been cleared or approvedby the Food and Drug Administration.Test(s) 276302-Hyetmvi E(Alpha Tocopherol); 006427-Ywfmvxc E(Gamma Tocopherol)was developed and its performance characteristicsdetermined by [facility]. It has not been cleared or approvedby the Food and Drug Administration. Test(s) 338184-Lcmaawh B6was developed a nd its performance characteristicsdetermined by [facility]. It has not been cleared or approvedby the Food and Drug Administration.Test(s) 785776-Lqs. B1, Whole Bloodwas developed and its performance characteristicsdetermined by [facility]. It has not been cleared or approvedby the Food and Drug Administration.Test(s) 759354-Jsqlhew E(Alpha Tocopherol); 493417-Gowjnku E(Gamma Tocopherol)was developed and its performance characteristicsdetermined by [facility]. It has not been cleared or approvedby the Food and Drug Administration. Test(s) 228351-Xoiaagw B6was developed a nd its performance characteristicsdetermined by [facility]. It has not been cleared or approvedby the Food and Drug Administration.Test(s) 179583-Doe. B1, Whole Bloodwas developed and its performance characteristicsdetermined by [facility]. It has not been cleared or approvedby the Food and Drug Administration.Test(s) 599207-Qiaskqr E(Alpha Tocopherol); 562559-Zntbfpk E(Gamma Tocopherol)was developed and its performance characteristicsdetermined by [facility]. It has not been cleared or approvedby the Food and Drug Administration. Test(s) 859147-Jynuzjj B6was developed a nd its performance characteristicsdetermined by [facility]. It has not been cleared or approvedby the Food and Drug Administration.Test(s) 913423-Gjn. B1, Whole Bloodwas developed and its performance characteristicsdetermined by [facility]. It has not been cleared or approvedby the Food and Drug Administration.Test(s) 441181-Virnqui E(Alpha Tocopherol); 636011-Xikcoan E(Gamma Tocopherol)was developed and its performance characteristicsdetermined by [facility]. It has not been cleared or approvedby the Food and Drug Administration. Test(s) 782164-Lclqkio B6was developed a nd its performance characteristicsdetermined by [facility]. It has not been cleared or approvedby the Food and Drug Administration.Test(s) 807038-Zpy. B1, Whole Bloodwas developed and its performance characteristicsdetermined by [facility]. It has not been cleared or approvedby the Food and Drug Administration.Test(s) 342922-Qcsulfw E(Alpha Tocopherol); 055087-Dwvasiq E(Gamma Tocopherol)was developed and its performance characteristicsdetermined by [facility]. It has not been cleared or approvedby the Food and Drug Administration. Test(s) 293202-Dyqprwh B6was developed a nd its performance characteristicsdetermined by [facility]. It has not been cleared or approvedby the Food and Drug Administration.Test(s) 820779-Bbn. B1, Whole Bloodwas developed and its performance characteristicsdetermined by [facility]. It has not been cleared or approvedby the Food and Drug Administration.Test(s) 688874-Wjlqsuv E(Alpha Tocopherol); 387524-Ragxbju E(Gamma Tocopherol)was developed and its performance characteristicsdetermined by [facility]. It has not been cleared or approvedby the Food and Drug Administration. Name Value Range Interpretation Code Description Data Julianna rce(s) Supporting Document(s) Urea nitrogen [Mass/volume] in Serum or Plasma 10 mg/dL 9-23 [facility] Sodium [Moles/volume] in Serum or Plasma 144 mmol/L 132-146 [facility] Potassium [Moles/volume] in Serum or Plasma 4.6 mmol/L 3.5-5.5 [facility] Chloride [Moles/volume] in Serum or Plasma 109 mmol/L 99-109 N [facility] Carbon dioxide, total [Moles/volume] in Serum or Plasma 31 mmol/L 20 -31 N [facility] Anion gap in Serum or Plasma 9 mmol/L 8-[address] [facility] Glucose [Mass/volume] in Serum or Plasma 113 mg/dL 74-106 Above high normal [facility] Creatinine 0.7 mg/dL 0.5-1.1 [facility] Glomerular filtration rate/1.73 sq M.pre dicted [Volume Rate/Area] in Serum or Plasma Greater Than 60 ABOVE 60 [facility] Alanine aminotransferase [Enzymatic acti vity/volume] in Serum or Plasma by With P-5'-P 48 U/L 10-49 N [facility] ital Aspartate aminotransferase [Enzymatic ac tivity/volume] in Serum or Plasma by With P-5'-P 58 U/L 0-33 Above high normal [facility] Alkaline phosphatase [Enzymatic activity/volume] in Serum or Plasma 123 U/L 45-129 N [facility] Calcium [Mass/volume] in Serum or Plasma 8.9 mg/dL 8.5-10.[address] [facility] Bilirubin.total [Mass/volume] in Serum or Plasma 0.4 mg/dL 0.3-1.[address] [facility] Albumin [Mass/volume] in Serum or Plasma by Bromocresol purple (BCP) dye binding method 3.4 g/dL 3.2-4.8 [facility] ital Protein [Mass/volume] in Serum or Plasma 7.5 g/dL 5.7-8.[address] [facility] ID Date Data Source [id number] 11/21/2019 04:48:00 PM EDT [facility] Test(s) 570392-Kzvanvd B6was developed a nd its performance characteristicsdetermined by [facility]. It has not been cleared or approvedby the Food and Drug Administration.Test(s) 716031-Naz. B1, Whole Bloodwas developed and its performance characteristicsdetermined by [facility]. It has not been cleared or approvedby the Food and Drug Administration.Test(s) 481263-Znjplil E(Alpha Tocopherol); 315624-Dqzzkxe E(Gamma Tocopherol)was developed and its performance characteristicsdetermined by [facility]. It has not been cleared or approvedby the Food and Drug Administration. Test(s) 042431-Khnwoyf B6was developed a nd its performance characteristicsdetermined by [facility]. It has not been cleared or approvedby the Food and Drug Administration.Test(s) 878704-Sjf. B1, Whole Bloodwas developed and its performance characteristicsdetermined by [facility]. It has not been cleared or approvedby the Food and Drug Administration.Test(s) 251239-Ubsuoxo E(Alpha Tocopherol); 136764-Yaxawfs E(Gamma Tocopherol)was developed and its performance characteristicsdetermined by [facility]. It has not been cleared or approvedby the Food and Drug Administration. Test(s) 950394-Kvmlkvb B6was developed a nd its performance characteristicsdetermined by [facility]. It has not been cleared or approvedby the Food and Drug Administration.Test(s) 421688-Mqn. B1, Whole Bloodwas developed and its performance characteristicsdetermined by [facility]. It has not been cleared or approvedby the Food and Drug Administration.Test(s) 056528-Kkeojur E(Alpha Tocopherol); 346088-Vpvrgjg E(Gamma Tocopherol)was developed and its performance characteristicsdetermined by [facility]. It has not been cleared or approvedby the Food and Drug Administration. Test(s) 809510-Zvyrpby B6was developed a nd its performance characteristicsdetermined by [facility]. It has not been cleared or approvedby the Food and Drug Administration.Test(s) 512109-Ctu. B1, Whole Bloodwas developed and its performance characteristicsdetermined by [facility]. It has not been cleared or approvedby the Food and Drug Administration.Test(s) 521615-Zilhtmx E(Alpha Tocopherol); 333148-Zltziow E(Gamma Tocopherol)was developed and its performance characteristicsdetermined by [facility]. It has not been cleared or approvedby the Food and Drug Administration. Test(s) 801875-Frvukid B6was developed a nd its performance characteristicsdetermined by [facility]. It has not been cleared or approvedby the Food and Drug Administration.Test(s) 040884-Sci. B1, Whole Bloodwas developed and its performance characteristicsdetermined by [facility]. It has not been cleared or approvedby the Food and Drug Administration.Test(s) 204512-Aluhyla E(Alpha Tocopherol); 116039-Knimtqm E(Gamma Tocopherol)was developed and its performance characteristicsdetermined by [facility]. It has not been cleared or approvedby the Food and Drug Administration. Test(s) 556426-Vrkungd B6was developed a nd its performance characteristicsdetermined by [facility]. It has not been cleared or approvedby the Food and Drug Administration.Test(s) 108815-Auh. B1, Whole Bloodwas developed and its performance characteristicsdetermined by [facility]. It has not been cleared or approvedby the Food and Drug Administration.Test(s) 603770-Mbjtdzv E(Alpha Tocopherol); 205111-Mneihkk E(Gamma Tocopherol)was developed and its performance characteristicsdetermined by [facility]. It has not been cleared or approvedby the Food and Drug Administration. Test(s) 333171-Ixjinnd B6was developed a nd its performance characteristicsdetermined by [facility]. It has not been cleared or approvedby the Food and Drug Administration.Test(s) 629335-Gal. B1, Whole Bloodwas developed and its performance characteristicsdetermined by [facility]. It has not been cleared or approvedby the Food and Drug Administration.Test(s) 982392-Dkzipcp E(Alpha Tocopherol); 677351-Elxvdsf E(Gamma Tocopherol)was developed and its performance characteristicsdetermined by [facility]. It has not been cleared or approvedby the Food and Drug Administration. Test(s) 872430-Jqwbpgd B6was developed a nd its performance characteristicsdetermined by [facility]. It has not been cleared or approvedby the Food and Drug Administration.Test(s) 395851-Qci. B1, Whole Bloodwas developed and its performance characteristicsdetermined by [facility]. It has not been cleared or approvedby the Food and Drug Administration.Test(s) 419491-Hbvswqe E(Alpha Tocopherol); 131648-Bnxslve E(Gamma Tocopherol)was developed and its performance characteristicsdetermined by [facility]. It has not been cleared or approvedby the Food and Drug Administration. Test(s) 423901-Xgldeis B6was developed a nd its performance characteristicsdetermined by [facility]. It has not been cleared or approvedby the Food and Drug Administration.Test(s) 952839-Qwo. B1, Whole Bloodwas developed and its performance characteristicsdetermined by [facility]. It has not been cleared or approvedby the Food and Drug Administration.Test(s) 984640-Bhdzclm E(Alpha Tocopherol); 421391-Hvnaaxm E(Gamma Tocopherol)was developed and its performance characteristicsdetermined by [facility]. It has not been cleared or approvedby the Food and Drug Administration. Name Value Range Interpretation Code Description Data Julianna rce(s) Supporting Document(s) Leukocytes [#/volume] in Blood by Automated count 10.1 10*3/uL 4.45-1 0.71 N [facility] Erythrocytes [#/volume] in Blood by Automated count 4.50 10*6/uL 4.20 -5.40 N [facility] Hemoglobin [Moles/volume] in Blood 14.2 g/dL 10.7-15.4 N [facility] Hematocrit [Volume Fraction] of Blood by Automated count 42.1 % 3 7-47 N [facility] Erythrocyte mean corpuscular volume [Ent itic volume] in Cord blood by Automated count 93.6 fL 80-96 N [facility] ital Erythrocyte mean corpuscular hemoglobin [Entitic mass] by Automated count 31.6 pg 27-31 Above high normal [facility] Erythrocyte mean corpuscular hemoglobin concentration [Mass/volume] in Cord blood 33.7 g/dL 33-37 N [facility] ital Erythrocyte distribution width [Entitic volume] by Automated cou nt 16 % 11-15 Above high normal [facility] Platelets [#/volume] in Blood by Automated count 303 10*3/uL 130-472 N [facility] Platelet mean volume [Entitic volume] in Blood 10.5 fL 9.1-13.1 N [facility] Neutrophils/100 leukocytes in Blood by Automated count 31.8 % 41-77 Below low normal [facility] Neutrophils [#/volume] in Blood by Automated count 3.2 U 1.7-7.6 N [facility] Lymphocytes/100 leukocytes in Blood by Automated count 47.7 % 14-46 Above high normal [facility] Lymphocytes [#/volume] in Blood by Automated count 4.8 U 0.6-4.6 Above high normal [facility] Monocytes/100 leukocytes in Blood by Automated count 10.8 % 4-12 N [facility] Monocytes [#/volume] in Blood by Automated count 1.1 U 0.2-1.2 N [facility] Eosinophils/100 leukocytes in Blood by Automated count 8.6 % 0-7 Above high normal [facility] Eosinophils [#/volume] in Blood by Automated count 0.9 U 0.0-0.5 Above high normal [facility] Basophils/100 leukocytes in Blood by Automated count 1.0 % 0.4-1 .3 N [facility] Basophils [#/volume] in Blood by Automated count 0.1 U 0.0-0.2 N [facility] NUCLEATED RED BLOOD CELL 0 % [facility] NUCLEATED RED BLOOD CELL# 0 U [facility] Immature granulocytes [Presence] in Blood by Automated count 0-2 N [facility] Immature granulocytes [#/volume] in Blood by Automated count 0.0 U 0-0.1 N [facility] Manual Differential panel - Blood NO [facility] ID Date Data Source [id number] 11/21/2019 04:54:00 PM EDT [facility] Test(s) 773487-Uldsvnf B6was developed a nd its performance characteristicsdetermined by [facility]. It has not been cleared or approvedby the Food and Drug Administration.Test(s) 658373-Dvx. B1, Whole Bloodwas developed and its performance characteristicsdetermined by [facility]. It has not been cleared or approvedby the Food and Drug Administration.Test(s) 023422-Wbxfatp E(Alpha Tocopherol); 162893-Uaehkwm E(Gamma Tocopherol)was developed and its performance characteristicsdetermined by [facility]. It has not been cleared or approvedby the Food and Drug Administration. Test(s) 340244-Qprmcnq B6was developed a nd its performance characteristicsdetermined by [facility]. It has not been cleared or approvedby the Food and Drug Administration.Test(s) 928525-Zqm. B1, Whole Bloodwas developed and its performance characteristicsdetermined by [facility]. It has not been cleared or approvedby the Food and Drug Administration.Test(s) 318876-Wlkuypm E(Alpha Tocopherol); 145542-Xirrzbo E(Gamma Tocopherol)was developed and its performance characteristicsdetermined by [facility]. It has not been cleared or approvedby the Food and Drug Administration. Test(s) 243537-Lrdbpcy B6was developed a nd its performance characteristicsdetermined by [facility]. It has not been cleared or approvedby the Food and Drug Administration.Test(s) 658507-Uru. B1, Whole Bloodwas developed and its performance characteristicsdetermined by [facility]. It has not been cleared or approvedby the Food and Drug Administration.Test(s) 235562-Yqkhgmf E(Alpha Tocopherol); 006899-Dwsikza E(Gamma Tocopherol)was developed and its performance characteristicsdetermined by [facility]. It has not been cleared or approvedby the Food and Drug Administration. Test(s) 134611-Ecvjyjw B6was developed a nd its performance characteristicsdetermined by [facility]. It has not been cleared or approvedby the Food and Drug Administration.Test(s) 371756-Zlo. B1, Whole Bloodwas developed and its performance characteristicsdetermined by [facility]. It has not been cleared or approvedby the Food and Drug Administration.Test(s) 655820-Elicydg E(Alpha Tocopherol); 517923-Lqtduxv E(Gamma Tocopherol)was developed and its performance characteristicsdetermined by [facility]. It has not been cleared or approvedby the Food and Drug Administration. Test(s) 785604-Pddbdhi B6was developed a nd its performance characteristicsdetermined by [facility]. It has not been cleared or approvedby the Food and Drug Administration.Test(s) 874416-Rte. B1, Whole Bloodwas developed and its performance characteristicsdetermined by [facility]. It has not been cleared or approvedby the Food and Drug Administration.Test(s) 136698-Icelafb E(Alpha Tocopherol); 045892-Djmhwfa E(Gamma Tocopherol)was developed and its performance characteristicsdetermined by [facility]. It has not been cleared or approvedby the Food and Drug Administration. Test(s) 756896-Dpmwafq B6was developed a nd its performance characteristicsdetermined by [facility]. It has not been cleared or approvedby the Food and Drug Administration.Test(s) 769136-Pdt. B1, Whole Bloodwas developed and its performance characteristicsdetermined by [facility]. It has not been cleared or approvedby the Food and Drug Administration.Test(s) 086987-Liykmfd E(Alpha Tocopherol); 299368-Czquawr E(Gamma Tocopherol)was developed and its performance characteristicsdetermined by [facility]. It has not been cleared or approvedby the Food and Drug Administration. Test(s) 288323-Ppmliee B6was developed a nd its performance characteristicsdetermined by [facility]. It has not been cleared or approvedby the Food and Drug Administration.Test(s) 641872-Ewo. B1, Whole Bloodwas developed and its performance characteristicsdetermined by [facility]. It has not been cleared or approvedby the Food and Drug Administration.Test(s) 708973-Qzhfrqz E(Alpha Tocopherol); 356148-Jdfmlow E(Gamma Tocopherol)was developed and its performance characteristicsdetermined by [facility]. It has not been cleared or approvedby the Food and Drug Administration. Test(s) 148207-Kvfpmuu B6was developed a nd its performance characteristicsdetermined by [facility]. It has not been cleared or approvedby the Food and Drug Administration.Test(s) 288310-Gyw. B1, Whole Bloodwas developed and its performance characteristicsdetermined by [facility]. It has not been cleared or approvedby the Food and Drug Administration.Test(s) 825585-Axsyxbf E(Alpha Tocopherol); 835840-Pmdyynl E(Gamma Tocopherol)was developed and its performance characteristicsdetermined by [facility]. It has not been cleared or approvedby the Food and Drug Administration. Test(s) 344342-Knpuvnx B6was developed a nd its performance characteristicsdetermined by [facility]. It has not been cleared or approvedby the Food and Drug Administration.Test(s) 249252-Qvf. B1, Whole Bloodwas developed and its performance characteristicsdetermined by [facility]. It has not been cleared or approvedby the Food and Drug Administration.Test(s) 039413-Zzetzzn E(Alpha Tocopherol); 143911-Yrsworn E(Gamma Tocopherol)was developed and its performance characteristicsdetermined by [facility]. It has not been cleared or approvedby the Food and Drug Administration. Name Value Range Interpretation Code Description Data Julianna rce(s) Supporting Document(s) Vitamin B12 467 pg/mL 211-911 [facility] ID Date Data Source [id number] 11/25/2019 08:06:00 PM EDT [facility] Test(s) 839178-Qoawcyw B6was developed a nd its performance characteristicsdetermined by [facility]. It has not been cleared or approvedby the Food and Drug Administration.Test(s) 110061-Lpq. B1, Whole Bloodwas developed and its performance characteristicsdetermined by [facility]. It has not been cleared or approvedby the Food and Drug Administration.Test(s) 230529-Wtkdkko E(Alpha Tocopherol); 078626-Yeqhiqx E(Gamma Tocopherol)was developed and its performance characteristicsdetermined by [facility]. It has not been cleared or approvedby the Food and Drug Administration. Test(s) 910676-Vngcjsc B6was developed a nd its performance characteristicsdetermined by [facility]. It has not been cleared or approvedby the Food and Drug Administration.Test(s) 671764-Zmx. B1, Whole Bloodwas developed and its performance characteristicsdetermined by [facility]. It has not been cleared or approvedby the Food and Drug Administration.Test(s) 282139-Naorrmj E(Alpha Tocopherol); 794506-Wzlulli E(Gamma Tocopherol)was developed and its performance characteristicsdetermined by [facility]. It has not been cleared or approvedby the Food and Drug Administration. Test(s) 098471-Ffzjwek B6was developed a nd its performance characteristicsdetermined by [facility]. It has not been cleared or approvedby the Food and Drug Administration.Test(s) 597246-Hvg. B1, Whole Bloodwas developed and its performance characteristicsdetermined by [facility]. It has not been cleared or approvedby the Food and Drug Administration.Test(s) 714377-Uwqpyzf E(Alpha Tocopherol); 134193-Wfudmhb E(Gamma Tocopherol)was developed and its performance characteristicsdetermined by [facility]. It has not been cleared or approvedby the Food and Drug Administration. Test(s) 852827-Fceflbh B6was developed a nd its performance characteristicsdetermined by [facility]. It has not been cleared or approvedby the Food and Drug Administration.Test(s) 328141-Hop. B1, Whole Bloodwas developed and its performance characteristicsdetermined by [facility]. It has not been cleared or approvedby the Food and Drug Administration.Test(s) 535680-Misewaw E(Alpha Tocopherol); 036755-Ekecczk E(Gamma Tocopherol)was developed and its performance characteristicsdetermined by [facility]. It has not been cleared or approvedby the Food and Drug Administration. Test(s) 305822-Ycthqrp B6was developed a nd its performance characteristicsdetermined by [facility]. It has not been cleared or approvedby the Food and Drug Administration.Test(s) 785316-Dup. B1, Whole Bloodwas developed and its performance characteristicsdetermined by [facility]. It has not been cleared or approvedby the Food and Drug Administration.Test(s) 604184-Vsjmuip E(Alpha Tocopherol); 905582-Fgkbcop E(Gamma Tocopherol)was developed and its performance characteristicsdetermined by [facility]. It has not been cleared or approvedby the Food and Drug Administration. Test(s) 087267-Ffmnire B6was developed a nd its performance characteristicsdetermined by [facility]. It has not been cleared or approvedby the Food and Drug Administration.Test(s) 274707-Jov. B1, Whole Bloodwas developed and its performance characteristicsdetermined by [facility]. It has not been cleared or approvedby the Food and Drug Administration.Test(s) 933116-Jafnkmi E(Alpha Tocopherol); 691397-Osqrlwg E(Gamma Tocopherol)was developed and its performance characteristicsdetermined by [facility]. It has not been cleared or approvedby the Food and Drug Administration. Test(s) 815407-Lspexbh B6was developed a nd its performance characteristicsdetermined by [facility]. It has not been cleared or approvedby the Food and Drug Administration.Test(s) 225809-Ope. B1, Whole Bloodwas developed and its performance characteristicsdetermined by [facility]. It has not been cleared or approvedby the Food and Drug Administration.Test(s) 000805-Wzralpp E(Alpha Tocopherol); 861200-Oibipvb E(Gamma Tocopherol)was developed and its performance characteristicsdetermined by [facility]. It has not been cleared or approvedby the Food and Drug Administration. Test(s) 965308-Msrhuqb B6was developed a nd its performance characteristicsdetermined by [facility]. It has not been cleared or approvedby the Food and Drug Administration.Test(s) 802811-Kfm. B1, Whole Bloodwas developed and its performance characteristicsdetermined by [facility]. It has not been cleared or approvedby the Food and Drug Administration.Test(s) 047212-Ijzvsax E(Alpha Tocopherol); 620535-Tjbzegr E(Gamma Tocopherol)was developed and its performance characteristicsdetermined by [facility]. It has not been cleared or approvedby the Food and Drug Administration. Test(s) 495990-Qudiqiy B6was developed a nd its performance characteristicsdetermined by [facility]. It has not been cleared or approvedby the Food and Drug Administration.Test(s) 706980-Hrv. B1, Whole Bloodwas developed and its performance characteristicsdetermined by [facility]. It has not been cleared or approvedby the Food and Drug Administration.Test(s) 245433-Fxasuze E(Alpha Tocopherol); 674911-Btvwqzc E(Gamma Tocopherol)was developed and its performance characteristicsdetermined by [facility]. It has not been cleared or approvedby the Food and Drug Administration. Name Value Range Interpretation Code Description Data Julianna rce(s) Supporting Document(s) Treponema pallidum Ab [Presence] in Serum by Immunoassay N on Reactive [facility] Performed at: - [facility] [address] [id number] Director: Audrey Neumann MD, Phone: [phone] at: - Lab[address] [id number] Director: Renetta Aguilera MD, Phone: [phone] ID Date Data Source [id number] 11/21/2019 04:48:00 PM EDT [facility] Test(s) 610848-Papwlxr B6was developed a nd its performance characteristicsdetermined by [facility]. It has not been cleared or approvedby the Food and Drug Administration.Test(s) 410378-Duu. B1, Whole Bloodwas developed and its performance characteristicsdetermined by [facility]. It has not been cleared or approvedby the Food and Drug Administration.Test(s) 364377-Nsrvwxc E(Alpha Tocopherol); 326957-Pyzsksx E(Gamma Tocopherol)was developed and its performance characteristicsdetermined by [facility]. It has not been cleared or approvedby the Food and Drug Administration. Test(s) 040762-Jxpiwqx B6was developed a nd its performance characteristicsdetermined by [facility]. It has not been cleared or approvedby the Food and Drug Administration.Test(s) 952998-Rer. B1, Whole Bloodwas developed and its performance characteristicsdetermined by [facility]. It has not been cleared or approvedby the Food and Drug Administration.Test(s) 602619-Aqomaiq E(Alpha Tocopherol); 119119-Tkdocgo E(Gamma Tocopherol)was developed and its performance characteristicsdetermined by [facility]. It has not been cleared or approvedby the Food and Drug Administration. Test(s) 571299-Psishru B6was developed a nd its performance characteristicsdetermined by [facility]. It has not been cleared or approvedby the Food and Drug Administration.Test(s) 100783-Pdp. B1, Whole Bloodwas developed and its performance characteristicsdetermined by [facility]. It has not been cleared or approvedby the Food and Drug Administration.Test(s) 718146-Ygkhkqv E(Alpha Tocopherol); 115183-Jxwzfjz E(Gamma Tocopherol)was developed and its performance characteristicsdetermined by [facility]. It has not been cleared or approvedby the Food and Drug Administration. Test(s) 656202-Gsckczt B6was developed a nd its performance characteristicsdetermined by [facility]. It has not been cleared or approvedby the Food and Drug Administration.Test(s) 062177-Quo. B1, Whole Bloodwas developed and its performance characteristicsdetermined by [facility]. It has not been cleared or approvedby the Food and Drug Administration.Test(s) 462191-Qzywfez E(Alpha Tocopherol); 427628-Mwfmgwp E(Gamma Tocopherol)was developed and its performance characteristicsdetermined by [facility]. It has not been cleared or approvedby the Food and Drug Administration. Test(s) 818275-Ahdzdav B6was developed a nd its performance characteristicsdetermined by [facility]. It has not been cleared or approvedby the Food and Drug Administration.Test(s) 666984-Egu. B1, Whole Bloodwas developed and its performance characteristicsdetermined by [facility]. It has not been cleared or approvedby the Food and Drug Administration.Test(s) 510763-Oxoiixy E(Alpha Tocopherol); 139776-Lqgiyir E(Gamma Tocopherol)was developed and its performance characteristicsdetermined by [facility]. It has not been cleared or approvedby the Food and Drug Administration. Test(s) 299740-Poauhyh B6was developed a nd its performance characteristicsdetermined by [facility]. It has not been cleared or approvedby the Food and Drug Administration.Test(s) 165810-Lai. B1, Whole Bloodwas developed and its performance characteristicsdetermined by [facility]. It has not been cleared or approvedby the Food and Drug Administration.Test(s) 519013-Ddsdpoi E(Alpha Tocopherol); 426472-Rlcczkh E(Gamma Tocopherol)was developed and its performance characteristicsdetermined by [facility]. It has not been cleared or approvedby the Food and Drug Administration. Test(s) 025461-Dksoixl B6was developed a nd its performance characteristicsdetermined by [facility]. It has not been cleared or approvedby the Food and Drug Administration.Test(s) 293559-Prb. B1, Whole Bloodwas developed and its performance characteristicsdetermined by [facility]. It has not been cleared or approvedby the Food and Drug Administration.Test(s) 260479-Zfoewco E(Alpha Tocopherol); 265527-Cvjvhsj E(Gamma Tocopherol)was developed and its performance characteristicsdetermined by [facility]. It has not been cleared or approvedby the Food and Drug Administration. Test(s) 737896-Okuwdxd B6was developed a nd its performance characteristicsdetermined by [facility]. It has not been cleared or approvedby the Food and Drug Administration.Test(s) 470240-Msv. B1, Whole Bloodwas developed and its performance characteristicsdetermined by [facility]. It has not been cleared or approvedby the Food and Drug Administration.Test(s) 012179-Opqyspt E(Alpha Tocopherol); 384000-Fqjctvy E(Gamma Tocopherol)was developed and its performance characteristicsdetermined by [facility]. It has not been cleared or approvedby the Food and Drug Administration. Test(s) 080326-Yjyrxyh B6was developed a nd its performance characteristicsdetermined by [facility]. It has not been cleared or approvedby the Food and Drug Administration.Test(s) 499277-Aas. B1, Whole Bloodwas developed and its performance characteristicsdetermined by [facility]. It has not been cleared or approvedby the Food and Drug Administration.Test(s) 180571-Zsasqct E(Alpha Tocopherol); 707470-Pyeabkv E(Gamma Tocopherol)was developed and its performance characteristicsdetermined by [facility]. It has not been cleared or approvedby the Food and Drug Administration. Name Value Range Interpretation Code Description Data Julianna rce(s) Supporting Document(s) Folate [Mass/volume] in Serum or Plasma 14.5 ng/mL [facility] FOLATE INTERPRETATION NORMAL: GREATER THAN 5.38 INDETERMINATE: 3.38 - 5.38 DEFICIENT: LESS THAN 3.37 ID Date Data Source [id number] 11/21/2019 04:48:00 PM EDT [facility] Test(s) 524431-Dymzypt B6was developed a nd its performance characteristicsdetermined by [facility]. It has not been cleared or approvedby the Food and Drug Administration.Test(s) 881772-Xnv. B1, Whole Bloodwas developed and its performance characteristicsdetermined by [facility]. It has not been cleared or approvedby the Food and Drug Administration.Test(s) 074815-Wknkplj E(Alpha Tocopherol); 541282-Hebxulm E(Gamma Tocopherol)was developed and its performance characteristicsdetermined by [facility]. It has not been cleared or approvedby the Food and Drug Administration. Test(s) 476059-Glfliio B6was developed a nd its performance characteristicsdetermined by [facility]. It has not been cleared or approvedby the Food and Drug Administration.Test(s) 459434-Cru. B1, Whole Bloodwas developed and its performance characteristicsdetermined by [facility]. It has not been cleared or approvedby the Food and Drug Administration.Test(s) 116882-Zjwugpb E(Alpha Tocopherol); 625049-Faptfqo E(Gamma Tocopherol)was developed and its performance characteristicsdetermined by [facility]. It has not been cleared or approvedby the Food and Drug Administration. Test(s) 507567-Aslhuxa B6was developed a nd its performance characteristicsdetermined by [facility]. It has not been cleared or approvedby the Food and Drug Administration.Test(s) 589327-Npg. B1, Whole Bloodwas developed and its performance characteristicsdetermined by [facility]. It has not been cleared or approvedby the Food and Drug Administration.Test(s) 803094-Atdtcuw E(Alpha Tocopherol); 230166-Ptnbhmb E(Gamma Tocopherol)was developed and its performance characteristicsdetermined by [facility]. It has not been cleared or approvedby the Food and Drug Administration. Test(s) 285643-Qerlwvn B6was developed a nd its performance characteristicsdetermined by [facility]. It has not been cleared or approvedby the Food and Drug Administration.Test(s) 301579-Chm. B1, Whole Bloodwas developed and its performance characteristicsdetermined by [facility]. It has not been cleared or approvedby the Food and Drug Administration.Test(s) 744207-Esieogo E(Alpha Tocopherol); 770668-Mobggzt E(Gamma Tocopherol)was developed and its performance characteristicsdetermined by [facility]. It has not been cleared or approvedby the Food and Drug Administration. Test(s) 106876-Jgexiwd B6was developed a nd its performance characteristicsdetermined by [facility]. It has not been cleared or approvedby the Food and Drug Administration.Test(s) 049497-Qsq. B1, Whole Bloodwas developed and its performance characteristicsdetermined by [facility]. It has not been cleared or approvedby the Food and Drug Administration.Test(s) 155511-Pamirjy E(Alpha Tocopherol); 608459-Fmshxuo E(Gamma Tocopherol)was developed and its performance characteristicsdetermined by [facility]. It has not been cleared or approvedby the Food and Drug Administration. Test(s) 618923-Qjiwskk B6was developed a nd its performance characteristicsdetermined by [facility]. It has not been cleared or approvedby the Food and Drug Administration.Test(s) 051883-Mmw. B1, Whole Bloodwas developed and its performance characteristicsdetermined by [facility]. It has not been cleared or approvedby the Food and Drug Administration.Test(s) 851943-Rgjjbvz E(Alpha Tocopherol); 525328-Ilzoijv E(Gamma Tocopherol)was developed and its performance characteristicsdetermined by [facility]. It has not been cleared or approvedby the Food and Drug Administration. Test(s) 620319-Limshyp B6was developed a nd its performance characteristicsdetermined by [facility]. It has not been cleared or approvedby the Food and Drug Administration.Test(s) 193554-Dnj. B1, Whole Bloodwas developed and its performance characteristicsdetermined by [facility]. It has not been cleared or approvedby the Food and Drug Administration.Test(s) 400739-Qlidnnj E(Alpha Tocopherol); 383264-Rodlror E(Gamma Tocopherol)was developed and its performance characteristicsdetermined by [facility]. It has not been cleared or approvedby the Food and Drug Administration. Test(s) 583994-Tkutoll B6was developed a nd its performance characteristicsdetermined by [facility]. It has not been cleared or approvedby the Food and Drug Administration.Test(s) 956741-Wiv. B1, Whole Bloodwas developed and its performance characteristicsdetermined by [facility]. It has not been cleared or approvedby the Food and Drug Administration.Test(s) 953748-Iiltpne E(Alpha Tocopherol); 077924-Wfjjrwb E(Gamma Tocopherol)was developed and its performance characteristicsdetermined by [facility]. It has not been cleared or approvedby the Food and Drug Administration. Test(s) 478793-Cedqwem B6was developed a nd its performance characteristicsdetermined by [facility]. It has not been cleared or approvedby the Food and Drug Administration.Test(s) 628176-Hah. B1, Whole Bloodwas developed and its performance characteristicsdetermined by [facility]. It has not been cleared or approvedby the Food and Drug Administration.Test(s) 893919-Jgbpbhk E(Alpha Tocopherol); 004377-Ajszvvj E(Gamma Tocopherol)was developed and its performance characteristicsdetermined by [facility]. It has not been cleared or approvedby the Food and Drug Administration. Name Value Range Interpretation Code Description Data Julianna rce(s) Supporting Document(s) Erythrocyte sedimentation rate by Westergren method 20 mm/hr 0-30 [facility] @Reenter manual test result: 20@by Sri Albrecht at 11/21/19 1648. ID Date Data Source [id number] 11/25/2019 08:06:00 PM EDT [facility] Test(s) 731965-Aufusra B6was developed a nd its performance characteristicsdetermined by [facility]. It has not been cleared or approvedby the Food and Drug Administration.Test(s) 238093-Hzt. B1, Whole Bloodwas developed and its performance characteristicsdetermined by [facility]. It has not been cleared or approvedby the Food and Drug Administration.Test(s) 594547-Gwjnvpj E(Alpha Tocopherol); 041551-Wwhejvp E(Gamma Tocopherol)was developed and its performance characteristicsdetermined by [facility]. It has not been cleared or approvedby the Food and Drug Administration. Test(s) 847849-Vaosinq B6was developed a nd its performance characteristicsdetermined by [facility]. It has not been cleared or approvedby the Food and Drug Administration.Test(s) 217518-Raw. B1, Whole Bloodwas developed and its performance characteristicsdetermined by [facility]. It has not been cleared or approvedby the Food and Drug Administration.Test(s) 890226-Seqxhny E(Alpha Tocopherol); 238994-Uqkuvzk E(Gamma Tocopherol)was developed and its performance characteristicsdetermined by [facility]. It has not been cleared or approvedby the Food and Drug Administration. Test(s) 854797-Syahyly B6was developed a nd its performance characteristicsdetermined by [facility]. It has not been cleared or approvedby the Food and Drug Administration.Test(s) 503451-Std. B1, Whole Bloodwas developed and its performance characteristicsdetermined by [facility]. It has not been cleared or approvedby the Food and Drug Administration.Test(s) 904773-Penngpp E(Alpha Tocopherol); 105347-Qxgvaic E(Gamma Tocopherol)was developed and its performance characteristicsdetermined by [facility]. It has not been cleared or approvedby the Food and Drug Administration. Test(s) 821411-Knkgciv B6was developed a nd its performance characteristicsdetermined by [facility]. It has not been cleared or approvedby the Food and Drug Administration.Test(s) 128962-Ncf. B1, Whole Bloodwas developed and its performance characteristicsdetermined by [facility]. It has not been cleared or approvedby the Food and Drug Administration.Test(s) 957891-Hfzewgu E(Alpha Tocopherol); 723847-Zyefhmn E(Gamma Tocopherol)was developed and its performance characteristicsdetermined by [facility]. It has not been cleared or approvedby the Food and Drug Administration. Test(s) 521899-Uktlzfk B6was developed a nd its performance characteristicsdetermined by [facility]. It has not been cleared or approvedby the Food and Drug Administration.Test(s) 519799-Kkr. B1, Whole Bloodwas developed and its performance characteristicsdetermined by [facility]. It has not been cleared or approvedby the Food and Drug Administration.Test(s) 443690-Wcjilsk E(Alpha Tocopherol); 869026-Hqzsqnh E(Gamma Tocopherol)was developed and its performance characteristicsdetermined by [facility]. It has not been cleared or approvedby the Food and Drug Administration. Test(s) 037655-Wzupgrs B6was developed a nd its performance characteristicsdetermined by [facility]. It has not been cleared or approvedby the Food and Drug Administration.Test(s) 303695-Enb. B1, Whole Bloodwas developed and its performance characteristicsdetermined by [facility]. It has not been cleared or approvedby the Food and Drug Administration.Test(s) 103710-Adyfnbn E(Alpha Tocopherol); 682333-Tczradu E(Gamma Tocopherol)was developed and its performance characteristicsdetermined by [facility]. It has not been cleared or approvedby the Food and Drug Administration. Test(s) 026256-Mrwtgmt B6was developed a nd its performance characteristicsdetermined by [facility]. It has not been cleared or approvedby the Food and Drug Administration.Test(s) 802144-Wua. B1, Whole Bloodwas developed and its performance characteristicsdetermined by [facility]. It has not been cleared or approvedby the Food and Drug Administration.Test(s) 152522-Kxhahil E(Alpha Tocopherol); 982757-Dektgbf E(Gamma Tocopherol)was developed and its performance characteristicsdetermined by [facility]. It has not been cleared or approvedby the Food and Drug Administration. Test(s) 303786-Scsflsp B6was developed a nd its performance characteristicsdetermined by [facility]. It has not been cleared or approvedby the Food and Drug Administration.Test(s) 691049-Iml. B1, Whole Bloodwas developed and its performance characteristicsdetermined by [facility]. It has not been cleared or approvedby the Food and Drug Administration.Test(s) 811385-Ozzirmi E(Alpha Tocopherol); 534901-Rsjyebh E(Gamma Tocopherol)was developed and its performance characteristicsdetermined by [facility]. It has not been cleared or approvedby the Food and Drug Administration. Test(s) 115342-Jkbpbcm B6was developed a nd its performance characteristicsdetermined by [facility]. It has not been cleared or approvedby the Food and Drug Administration.Test(s) 860773-Lul. B1, Whole Bloodwas developed and its performance characteristicsdetermined by [facility]. It has not been cleared or approvedby the Food and Drug Administration.Test(s) 981120-Jjhsztp E(Alpha Tocopherol); 394128-Tvzeuko E(Gamma Tocopherol)was developed and its performance characteristicsdetermined by [facility]. It has not been cleared or approvedby the Food and Drug Administration. Name Value Range Interpretation Code Description Data Julianna rce(s) Supporting Document(s) Neutrophil cytoplasmic Ab.classic [Titer] in Serum by Immunofluorescence <1:20 titer Neg:<1:20 [facility] Neutrophil cytoplasmic Ab.perinuclear [Titer] in Serum by Immunofluorescence <1:20 titer Neg:<1:20 [facility] The presence of positive fluorescence ex hibiting P-ANCA orC-ANCA patterns alone is not specific for the diagnosis ofWegener's Granulomatosis (WG) or microscopic polyangiitis.Decisions about treatment should not be based solely onANCA IFA results. The International ANCA Group Consensusrecommends follow up testing of positive sera with both AZ-3 and MPO-ANCA enzyme immunoassays. As many as 5% serumsamples are positive only by EIA. Ref. AM J Clin Fsffwn8627;111:507-513. Neutrophil cytoplasmic Ab.perinuclear.at ypical [Titer] in Serum by Immunofluorescence <1:20 titer Neg:<1:20 [facility] The atypical pANCA pattern has been obse rved in asignificant percentage of patients with ulcerative colitis,primary sclerosing cholangitis and autoimmune hepatitis.Performed at: [address] [id number] Director: Renetta Aguilera MD, Phone: [phone] ID Date Data Source [id number] 11/21/2019 04:48:00 PM EDT [facility] Test(s) 696207-Xoznlqb B6was developed a nd its performance characteristicsdetermined by [facility]. It has not been cleared or approvedby the Food and Drug Administration.Test(s) 108636-Kur. B1, Whole Bloodwas developed and its performance characteristicsdetermined by [facility]. It has not been cleared or approvedby the Food and Drug Administration.Test(s) 416426-Vhojggf E(Alpha Tocopherol); 065461-Vndkhpb E(Gamma Tocopherol)was developed and its performance characteristicsdetermined by [facility]. It has not been cleared or approvedby the Food and Drug Administration. Test(s) 851833-Bywsgue B6was developed a nd its performance characteristicsdetermined by [facility]. It has not been cleared or approvedby the Food and Drug Administration.Test(s) 692660-Qyu. B1, Whole Bloodwas developed and its performance characteristicsdetermined by [facility]. It has not been cleared or approvedby the Food and Drug Administration.Test(s) 778985-Lqtdhnh E(Alpha Tocopherol); 008502-Yhkiknl E(Gamma Tocopherol)was developed and its performance characteristicsdetermined by [facility]. It has not been cleared or approvedby the Food and Drug Administration. Test(s) 059756-Noryeuk B6was developed a nd its performance characteristicsdetermined by [facility]. It has not been cleared or approvedby the Food and Drug Administration.Test(s) 645455-Olg. B1, Whole Bloodwas developed and its performance characteristicsdetermined by [facility]. It has not been cleared or approvedby the Food and Drug Administration.Test(s) 293831-Fdthhje E(Alpha Tocopherol); 422981-Pdngvtz E(Gamma Tocopherol)was developed and its performance characteristicsdetermined by [facility]. It has not been cleared or approvedby the Food and Drug Administration. Test(s) 443233-Jakrrgl B6was developed a nd its performance characteristicsdetermined by [facility]. It has not been cleared or approvedby the Food and Drug Administration.Test(s) 293872-Qre. B1, Whole Bloodwas developed and its performance characteristicsdetermined by [facility]. It has not been cleared or approvedby the Food and Drug Administration.Test(s) 098077-Pewhfxe E(Alpha Tocopherol); 052362-Hgvroak E(Gamma Tocopherol)was developed and its performance characteristicsdetermined by [facility]. It has not been cleared or approvedby the Food and Drug Administration. Test(s) 324319-Xpzowuz B6was developed a nd its performance characteristicsdetermined by [facility]. It has not been cleared or approvedby the Food and Drug Administration.Test(s) 085534-Ide. B1, Whole Bloodwas developed and its performance characteristicsdetermined by [facility]. It has not been cleared or approvedby the Food and Drug Administration.Test(s) 284665-Jxmxckv E(Alpha Tocopherol); 137492-Cyaftvo E(Gamma Tocopherol)was developed and its performance characteristicsdetermined by [facility]. It has not been cleared or approvedby the Food and Drug Administration. Test(s) 782814-Byhqbuk B6was developed a nd its performance characteristicsdetermined by [facility]. It has not been cleared or approvedby the Food and Drug Administration.Test(s) 437936-Uhe. B1, Whole Bloodwas developed and its performance characteristicsdetermined by [facility]. It has not been cleared or approvedby the Food and Drug Administration.Test(s) 666305-Mddkual E(Alpha Tocopherol); 647130-Dwinrpz E(Gamma Tocopherol)was developed and its performance characteristicsdetermined by [facility]. It has not been cleared or approvedby the Food and Drug Administration. Test(s) 348024-Jefacjm B6was developed a nd its performance characteristicsdetermined by [facility]. It has not been cleared or approvedby the Food and Drug Administration.Test(s) 273277-Uzi. B1, Whole Bloodwas developed and its performance characteristicsdetermined by [facility]. It has not been cleared or approvedby the Food and Drug Administration.Test(s) 600349-Vzhsqdh E(Alpha Tocopherol); 129202-Fgjbceu E(Gamma Tocopherol)was developed and its performance characteristicsdetermined by [facility]. It has not been cleared or approvedby the Food and Drug Administration. Test(s) 278438-Xwicmlz B6was developed a nd its performance characteristicsdetermined by [facility]. It has not been cleared or approvedby the Food and Drug Administration.Test(s) 056936-Bqt. B1, Whole Bloodwas developed and its performance characteristicsdetermined by [facility]. It has not been cleared or approvedby the Food and Drug Administration.Test(s) 305711-Hkagfuk E(Alpha Tocopherol); 088066-Qwunkwy E(Gamma Tocopherol)was developed and its performance characteristicsdetermined by [facility]. It has not been cleared or approvedby the Food and Drug Administration. Test(s) 069116-Khgyrfw B6was developed a nd its performance characteristicsdetermined by [facility]. It has not been cleared or approvedby the Food and Drug Administration.Test(s) 139571-Nje. B1, Whole Bloodwas developed and its performance characteristicsdetermined by [facility]. It has not been cleared or approvedby the Food and Drug Administration.Test(s) 993499-Ydbtyxx E(Alpha Tocopherol); 146705-Kwlilxf E(Gamma Tocopherol)was developed and its performance characteristicsdetermined by [facility]. It has not been cleared or approvedby the Food and Drug Administration. Name Value Range Interpretation Code Description Data Julianna rce(s) Supporting Document(s) Thyrotropin [Units/volume] in Serum or Plasma by Detec tion limit <= 0.005 mIU/L 2.61 u[iU]/mL 0.35-5.50 [facility] al ID Date Data Source [id number] 11/25/2019 08:06:00 PM EDT [facility] Test(s) 520715-Xuszost B6was developed a nd its performance characteristicsdetermined by [facility]. It has not been cleared or approvedby the Food and Drug Administration.Test(s) 361012-Tio. B1, Whole Bloodwas developed and its performance characteristicsdetermined by [facility]. It has not been cleared or approvedby the Food and Drug Administration.Test(s) 618464-Vrjkmih E(Alpha Tocopherol); 895143-Vxmmlfb E(Gamma Tocopherol)was developed and its performance characteristicsdetermined by [facility]. It has not been cleared or approvedby the Food and Drug Administration. Test(s) 646917-Ybhzuoj B6was developed a nd its performance characteristicsdetermined by [facility]. It has not been cleared or approvedby the Food and Drug Administration.Test(s) 950565-Ozf. B1, Whole Bloodwas developed and its performance characteristicsdetermined by [facility]. It has not been cleared or approvedby the Food and Drug Administration.Test(s) 754372-Sabdxuf E(Alpha Tocopherol); 841693-Fgzsksw E(Gamma Tocopherol)was developed and its performance characteristicsdetermined by [facility]. It has not been cleared or approvedby the Food and Drug Administration. Test(s) 583050-Tjhlmpi B6was developed a nd its performance characteristicsdetermined by [facility]. It has not been cleared or approvedby the Food and Drug Administration.Test(s) 869643-Kdb. B1, Whole Bloodwas developed and its performance characteristicsdetermined by [facility]. It has not been cleared or approvedby the Food and Drug Administration.Test(s) 570054-Folslqp E(Alpha Tocopherol); 466052-Clabtlc E(Gamma Tocopherol)was developed and its performance characteristicsdetermined by [facility]. It has not been cleared or approvedby the Food and Drug Administration. Test(s) 585192-Osczacs B6was developed a nd its performance characteristicsdetermined by [facility]. It has not been cleared or approvedby the Food and Drug Administration.Test(s) 652679-Pys. B1, Whole Bloodwas developed and its performance characteristicsdetermined by [facility]. It has not been cleared or approvedby the Food and Drug Administration.Test(s) 544849-Sudahdg E(Alpha Tocopherol); 516784-Xmtrgsd E(Gamma Tocopherol)was developed and its performance characteristicsdetermined by [facility]. It has not been cleared or approvedby the Food and Drug Administration. Test(s) 681763-Eqaemdk B6was developed a nd its performance characteristicsdetermined by [facility]. It has not been cleared or approvedby the Food and Drug Administration.Test(s) 430978-Itg. B1, Whole Bloodwas developed and its performance characteristicsdetermined by [facility]. It has not been cleared or approvedby the Food and Drug Administration.Test(s) 920192-Qobtdwx E(Alpha Tocopherol); 852113-Sxlsbjf E(Gamma Tocopherol)was developed and its performance characteristicsdetermined by [facility]. It has not been cleared or approvedby the Food and Drug Administration. Test(s) 385441-Atbbosm B6was developed a nd its performance characteristicsdetermined by [facility]. It has not been cleared or approvedby the Food and Drug Administration.Test(s) 781484-Fet. B1, Whole Bloodwas developed and its performance characteristicsdetermined by [facility]. It has not been cleared or approvedby the Food and Drug Administration.Test(s) 506078-Advsaks E(Alpha Tocopherol); 961306-Etfdcir E(Gamma Tocopherol)was developed and its performance characteristicsdetermined by [facility]. It has not been cleared or approvedby the Food and Drug Administration. Test(s) 201421-Pxjmnpi B6was developed a nd its performance characteristicsdetermined by [facility]. It has not been cleared or approvedby the Food and Drug Administration.Test(s) 241867-Oak. B1, Whole Bloodwas developed and its performance characteristicsdetermined by [facility]. It has not been cleared or approvedby the Food and Drug Administration.Test(s) 269489-Bvzspcs E(Alpha Tocopherol); 477494-Xtkspgl E(Gamma Tocopherol)was developed and its performance characteristicsdetermined by [facility]. It has not been cleared or approvedby the Food and Drug Administration. Test(s) 385507-Fpguqas B6was developed a nd its performance characteristicsdetermined by [facility]. It has not been cleared or approvedby the Food and Drug Administration.Test(s) 871039-Njx. B1, Whole Bloodwas developed and its performance characteristicsdetermined by [facility]. It has not been cleared or approvedby the Food and Drug Administration.Test(s) 805441-Vooebgw E(Alpha Tocopherol); 781952-Fzcwour E(Gamma Tocopherol)was developed and its performance characteristicsdetermined by [facility]. It has not been cleared or approvedby the Food and Drug Administration. Test(s) 924744-Scfwgwd B6was developed a nd its performance characteristicsdetermined by [facility]. It has not been cleared or approvedby the Food and Drug Administration.Test(s) 976838-Qss. B1, Whole Bloodwas developed and its performance characteristicsdetermined by [facility]. It has not been cleared or approvedby the Food and Drug Administration.Test(s) 810905-Rpynfbo E(Alpha Tocopherol); 479258-Ccgebpe E(Gamma Tocopherol)was developed and its performance characteristicsdetermined by [facility]. It has not been cleared or approvedby the Food and Drug Administration. Name Value Range Interpretation Code Description Data Julianna rce(s) Supporting Document(s) Thiamine [Moles/volume] in Blood 175.2 nmol/L 66.5-200.0 [facility] Performed at: [address] [id number] Director: Renetta Aguilera MD, Phone: [phone] ID Date Data Source [id number] 11/21/2019 04:48:00 PM EDT [facility] Test(s) 852408-Ebzgwtu B6was developed a nd its performance characteristicsdetermined by [facility]. It has not been cleared or approvedby the Food and Drug Administration.Test(s) 339748-Cfy. B1, Whole Bloodwas developed and its performance characteristicsdetermined by [facility]. It has not been cleared or approvedby the Food and Drug Administration.Test(s) 059120-Tgnuwax E(Alpha Tocopherol); 916953-Hbwwxgj E(Gamma Tocopherol)was developed and its performance characteristicsdetermined by [facility]. It has not been cleared or approvedby the Food and Drug Administration. Test(s) 097058-Xbxjizd B6was developed a nd its performance characteristicsdetermined by [facility]. It has not been cleared or approvedby the Food and Drug Administration.Test(s) 452363-Daf. B1, Whole Bloodwas developed and its performance characteristicsdetermined by [facility]. It has not been cleared or approvedby the Food and Drug Administration.Test(s) 673998-Rwbvgul E(Alpha Tocopherol); 730408-Jmaqgjv E(Gamma Tocopherol)was developed and its performance characteristicsdetermined by [facility]. It has not been cleared or approvedby the Food and Drug Administration. Test(s) 276470-Rjecgps B6was developed a nd its performance characteristicsdetermined by [facility]. It has not been cleared or approvedby the Food and Drug Administration.Test(s) 571754-Ucd. B1, Whole Bloodwas developed and its performance characteristicsdetermined by [facility]. It has not been cleared or approvedby the Food and Drug Administration.Test(s) 165672-Lsdkwaj E(Alpha Tocopherol); 670437-Mekvkjp E(Gamma Tocopherol)was developed and its performance characteristicsdetermined by [facility]. It has not been cleared or approvedby the Food and Drug Administration. Test(s) 378875-Twvbvtr B6was developed a nd its performance characteristicsdetermined by [facility]. It has not been cleared or approvedby the Food and Drug Administration.Test(s) 335581-Nbs. B1, Whole Bloodwas developed and its performance characteristicsdetermined by [facility]. It has not been cleared or approvedby the Food and Drug Administration.Test(s) 928586-Gsskwiq E(Alpha Tocopherol); 392096-Ichpfnp E(Gamma Tocopherol)was developed and its performance characteristicsdetermined by [facility]. It has not been cleared or approvedby the Food and Drug Administration. Test(s) 254481-Iqreahn B6was developed a nd its performance characteristicsdetermined by [facility]. It has not been cleared or approvedby the Food and Drug Administration.Test(s) 433670-Pce. B1, Whole Bloodwas developed and its performance characteristicsdetermined by [facility]. It has not been cleared or approvedby the Food and Drug Administration.Test(s) 782253-Cuovtgz E(Alpha Tocopherol); 568233-Mwmvjhz E(Gamma Tocopherol)was developed and its performance characteristicsdetermined by [facility]. It has not been cleared or approvedby the Food and Drug Administration. Test(s) 875626-Awyqdka B6was developed a nd its performance characteristicsdetermined by [facility]. It has not been cleared or approvedby the Food and Drug Administration.Test(s) 190991-Dkw. B1, Whole Bloodwas developed and its performance characteristicsdetermined by [facility]. It has not been cleared or approvedby the Food and Drug Administration.Test(s) 048641-Euxrjjo E(Alpha Tocopherol); 155699-Lqigxut E(Gamma Tocopherol)was developed and its performance characteristicsdetermined by [facility]. It has not been cleared or approvedby the Food and Drug Administration. Test(s) 197385-Tibtiet B6was developed a nd its performance characteristicsdetermined by [facility]. It has not been cleared or approvedby the Food and Drug Administration.Test(s) 223278-Wyc. B1, Whole Bloodwas developed and its performance characteristicsdetermined by [facility]. It has not been cleared or approvedby the Food and Drug Administration.Test(s) 770937-Mantfhn E(Alpha Tocopherol); 551465-Euyyhnu E(Gamma Tocopherol)was developed and its performance characteristicsdetermined by [facility]. It has not been cleared or approvedby the Food and Drug Administration. Test(s) 846190-Grcpeka B6was developed a nd its performance characteristicsdetermined by [facility]. It has not been cleared or approvedby the Food and Drug Administration.Test(s) 817725-Hid. B1, Whole Bloodwas developed and its performance characteristicsdetermined by [facility]. It has not been cleared or approvedby the Food and Drug Administration.Test(s) 828253-Oxbkxwc E(Alpha Tocopherol); 743091-Bxptgqq E(Gamma Tocopherol)was developed and its performance characteristicsdetermined by [facility]. It has not been cleared or approvedby the Food and Drug Administration. Test(s) 757207-Ihoyumu B6was developed a nd its performance characteristicsdetermined by [facility]. It has not been cleared or approvedby the Food and Drug Administration.Test(s) 240935-Roe. B1, Whole Bloodwas developed and its performance characteristicsdetermined by [facility]. It has not been cleared or approvedby the Food and Drug Administration.Test(s) 220768-Mbfsahv E(Alpha Tocopherol); 914773-Azyquza E(Gamma Tocopherol)was developed and its performance characteristicsdetermined by [facility]. It has not been cleared or approvedby the Food and Drug Administration. Name Value Range Interpretation Code Description Data Julianna rce(s) Supporting Document(s) Rheumatoid factor [Units/volume] in Serum by Nephelometry 96.0 [ IU]/mL 0.0-14.0 Above high normal [facility] ID Date Data Source [id number] 11/25/2019 08:06:00 PM EDT [facility] Test(s) 807257-Ctlqvxs B6was developed a nd its performance characteristicsdetermined by [facility]. It has not been cleared or approvedby the Food and Drug Administration.Test(s) 248408-Etk. B1, Whole Bloodwas developed and its performance characteristicsdetermined by [facility]. It has not been cleared or approvedby the Food and Drug Administration.Test(s) 395587-Rdethhy E(Alpha Tocopherol); 348565-Qfflemx E(Gamma Tocopherol)was developed and its performance characteristicsdetermined by [facility]. It has not been cleared or approvedby the Food and Drug Administration. Test(s) 130412-Rskafnu B6was developed a nd its performance characteristicsdetermined by [facility]. It has not been cleared or approvedby the Food and Drug Administration.Test(s) 541637-Fna. B1, Whole Bloodwas developed and its performance characteristicsdetermined by [facility]. It has not been cleared or approvedby the Food and Drug Administration.Test(s) 314948-Veojasl E(Alpha Tocopherol); 428160-Wgmyjtk E(Gamma Tocopherol)was developed and its performance characteristicsdetermined by [facility]. It has not been cleared or approvedby the Food and Drug Administration. Test(s) 206041-Ifcxoiw B6was developed a nd its performance characteristicsdetermined by [facility]. It has not been cleared or approvedby the Food and Drug Administration.Test(s) 675527-Gqw. B1, Whole Bloodwas developed and its performance characteristicsdetermined by [facility]. It has not been cleared or approvedby the Food and Drug Administration.Test(s) 495771-Xqzcmyr E(Alpha Tocopherol); 458869-Cclcxlx E(Gamma Tocopherol)was developed and its performance characteristicsdetermined by [facility]. It has not been cleared or approvedby the Food and Drug Administration. Test(s) 150127-Qsqcavy B6was developed a nd its performance characteristicsdetermined by [facility]. It has not been cleared or approvedby the Food and Drug Administration.Test(s) 308600-Isw. B1, Whole Bloodwas developed and its performance characteristicsdetermined by [facility]. It has not been cleared or approvedby the Food and Drug Administration.Test(s) 761799-Zntcqdf E(Alpha Tocopherol); 789531-Ipzuppb E(Gamma Tocopherol)was developed and its performance characteristicsdetermined by [facility]. It has not been cleared or approvedby the Food and Drug Administration. Test(s) 427616-Eonxdul B6was developed a nd its performance characteristicsdetermined by [facility]. It has not been cleared or approvedby the Food and Drug Administration.Test(s) 767559-Kbm. B1, Whole Bloodwas developed and its performance characteristicsdetermined by [facility]. It has not been cleared or approvedby the Food and Drug Administration.Test(s) 371980-Ccarqbx E(Alpha Tocopherol); 540056-Vmdzblf E(Gamma Tocopherol)was developed and its performance characteristicsdetermined by [facility]. It has not been cleared or approvedby the Food and Drug Administration. Test(s) 618945-Ivtnbew B6was developed a nd its performance characteristicsdetermined by [facility]. It has not been cleared or approvedby the Food and Drug Administration.Test(s) 170458-Jas. B1, Whole Bloodwas developed and its performance characteristicsdetermined by [facility]. It has not been cleared or approvedby the Food and Drug Administration.Test(s) 479558-Yesqpae E(Alpha Tocopherol); 345795-Wwxnxwe E(Gamma Tocopherol)was developed and its performance characteristicsdetermined by [facility]. It has not been cleared or approvedby the Food and Drug Administration. Test(s) 643357-Ikivgtv B6was developed a nd its performance characteristicsdetermined by [facility]. It has not been cleared or approvedby the Food and Drug Administration.Test(s) 202916-Agk. B1, Whole Bloodwas developed and its performance characteristicsdetermined by [facility]. It has not been cleared or approvedby the Food and Drug Administration.Test(s) 413127-Xskwuxc E(Alpha Tocopherol); 789644-Fxmgrtk E(Gamma Tocopherol)was developed and its performance characteristicsdetermined by [facility]. It has not been cleared or approvedby the Food and Drug Administration. Test(s) 100872-Mhdckdi B6was developed a nd its performance characteristicsdetermined by [facility]. It has not been cleared or approvedby the Food and Drug Administration.Test(s) 582055-Lvn. B1, Whole Bloodwas developed and its performance characteristicsdetermined by [facility]. It has not been cleared or approvedby the Food and Drug Administration.Test(s) 107085-Fhlxpqh E(Alpha Tocopherol); 063973-Acwkoce E(Gamma Tocopherol)was developed and its performance characteristicsdetermined by [facility]. It has not been cleared or approvedby the Food and Drug Administration. Test(s) 186691-Hnapphq B6was developed a nd its performance characteristicsdetermined by [facility]. It has not been cleared or approvedby the Food and Drug Administration.Test(s) 603035-Fjp. B1, Whole Bloodwas developed and its performance characteristicsdetermined by [facility]. It has not been cleared or approvedby the Food and Drug Administration.Test(s) 867767-Belfmaf E(Alpha Tocopherol); 652191-Vssodez E(Gamma Tocopherol)was developed and its performance characteristicsdetermined by [facility]. It has not been cleared or approvedby the Food and Drug Administration. Name Value Range Interpretation Code Description Data Julianna rce(s) Supporting Document(s) Pyridoxine [Mass/volume] in Serum or Plasma 11.6 ug/L 2.0-32.8 [facility] Performed at: [address] [id number] Director: Renetta Aguilear MD, Phone: [phone] ID Date Data Source [id number] 11/25/2019 08:06:00 PM EDT [facility] Test(s) 187966-Gfphjmn B6was developed a nd its performance characteristicsdetermined by [facility]. It has not been cleared or approvedby the Food and Drug Administration.Test(s) 523255-Nfh. B1, Whole Bloodwas developed and its performance characteristicsdetermined by [facility]. It has not been cleared or approvedby the Food and Drug Administration.Test(s) 032491-Psixsoa E(Alpha Tocopherol); 408976-Rmahwny E(Gamma Tocopherol)was developed and its performance characteristicsdetermined by [facility]. It has not been cleared or approvedby the Food and Drug Administration. Test(s) 735382-Dtyvycu B6was developed a nd its performance characteristicsdetermined by [facility]. It has not been cleared or approvedby the Food and Drug Administration.Test(s) 003092-Syu. B1, Whole Bloodwas developed and its performance characteristicsdetermined by [facility]. It has not been cleared or approvedby the Food and Drug Administration.Test(s) 377735-Wsffvvl E(Alpha Tocopherol); 283137-Rysubqc E(Gamma Tocopherol)was developed and its performance characteristicsdetermined by [facility]. It has not been cleared or approvedby the Food and Drug Administration. Test(s) 009528-Uvvkryp B6was developed a nd its performance characteristicsdetermined by [facility]. It has not been cleared or approvedby the Food and Drug Administration.Test(s) 327739-Vgm. B1, Whole Bloodwas developed and its performance characteristicsdetermined by [facility]. It has not been cleared or approvedby the Food and Drug Administration.Test(s) 789843-Rkiisqw E(Alpha Tocopherol); 095772-Iimfjdp E(Gamma Tocopherol)was developed and its performance characteristicsdetermined by [facility]. It has not been cleared or approvedby the Food and Drug Administration. Test(s) 024863-Vadptno B6was developed a nd its performance characteristicsdetermined by [facility]. It has not been cleared or approvedby the Food and Drug Administration.Test(s) 944063-Eil. B1, Whole Bloodwas developed and its performance characteristicsdetermined by [facility]. It has not been cleared or approvedby the Food and Drug Administration.Test(s) 850032-Jqbkfog E(Alpha Tocopherol); 385277-Quxoqmw E(Gamma Tocopherol)was developed and its performance characteristicsdetermined by [facility]. It has not been cleared or approvedby the Food and Drug Administration. Test(s) 630621-Rezfysg B6was developed a nd its performance characteristicsdetermined by [facility]. It has not been cleared or approvedby the Food and Drug Administration.Test(s) 010503-Slw. B1, Whole Bloodwas developed and its performance characteristicsdetermined by [facility]. It has not been cleared or approvedby the Food and Drug Administration.Test(s) 979411-Psnmzhg E(Alpha Tocopherol); 728665-Bratyha E(Gamma Tocopherol)was developed and its performance characteristicsdetermined by [facility]. It has not been cleared or approvedby the Food and Drug Administration. Test(s) 501023-Selafdj B6was developed a nd its performance characteristicsdetermined by [facility]. It has not been cleared or approvedby the Food and Drug Administration.Test(s) 433052-Meb. B1, Whole Bloodwas developed and its performance characteristicsdetermined by [facility]. It has not been cleared or approvedby the Food and Drug Administration.Test(s) 598305-Zzavjrx E(Alpha Tocopherol); 225449-Trpmnps E(Gamma Tocopherol)was developed and its performance characteristicsdetermined by [facility]. It has not been cleared or approvedby the Food and Drug Administration. Test(s) 222970-Obhkoaj B6was developed a nd its performance characteristicsdetermined by [facility]. It has not been cleared or approvedby the Food and Drug Administration.Test(s) 698391-Jge. B1, Whole Bloodwas developed and its performance characteristicsdetermined by [facility]. It has not been cleared or approvedby the Food and Drug Administration.Test(s) 519037-Dbabgpz E(Alpha Tocopherol); 732428-Osykacu E(Gamma Tocopherol)was developed and its performance characteristicsdetermined by [facility]. It has not been cleared or approvedby the Food and Drug Administration. Test(s) 825409-Ufzimqz B6was developed a nd its performance characteristicsdetermined by [facility]. It has not been cleared or approvedby the Food and Drug Administration.Test(s) 749914-Mjq. B1, Whole Bloodwas developed and its performance characteristicsdetermined by [facility]. It has not been cleared or approvedby the Food and Drug Administration.Test(s) 140200-Rxhymrw E(Alpha Tocopherol); 091397-Qcrcayl E(Gamma Tocopherol)was developed and its performance characteristicsdetermined by [facility]. It has not been cleared or approvedby the Food and Drug Administration. Test(s) 060246-Elodtgf B6was developed a nd its performance characteristicsdetermined by [facility]. It has not been cleared or approvedby the Food and Drug Administration.Test(s) 815204-Xod. B1, Whole Bloodwas developed and its performance characteristicsdetermined by [facility]. It has not been cleared or approvedby the Food and Drug Administration.Test(s) 155150-Vyyhfyw E(Alpha Tocopherol); 966464-Pikuhrd E(Gamma Tocopherol)was developed and its performance characteristicsdetermined by [facility]. It has not been cleared or approvedby the Food and Drug Administration. Name Value Range Interpretation Code Description Data Julianna rce(s) Supporting Document(s) Alpha tocopherol [Mass/volume] in Serum or Plasma 11.8 mg/L 9.0-29.0 [facility] Gamma tocopherol [Mass/volume] in Serum or Plasma 3.3 mg/L 0.5-4.9 [facility] Reference intervals for alpha and gamma- tocopheroldetermined from National Health and Nutrition ExaminationSurvey, 3133-7886. Individuals with alpha- tocopherol levelsless than 5.0 mg/L are considered vitamin E deficient.Performed at: [address] [id number] Director: Renetta Aguilera MD, Phone: [phone] ID Date Data Source [id number] 11/25/2019 08:06:00 PM EDT [facility] Test(s) 277615-Tcabllv B6was developed a nd its performance characteristicsdetermined by [employer]. It has not been cleared or approvedby the Food and Drug Administration.Test(s) 152054-Cvg. B1, Whole Bloodwas developed and its performance characteristicsdetermined by [facility]. It has not been cleared or approvedby the Food and Drug Administration.Test(s) 628106-Gxgooro E(Alpha Tocopherol); 560573-Dpurkpb E(Gamma Tocopherol)was developed and its performance characteristicsdetermined by [employer]. It has not been cleared or approvedby the Food and Drug Administration. Test(s) 041501-Iyjfphw B6was developed a nd its performance characteristicsdetermined by [employer]. It has not been cleared or approvedby the Food and Drug Administration.Test(s) 508236-Dut. B1, Whole Bloodwas developed and its performance characteristicsdetermined by [employer]. It has not been cleared or approvedby the Food and Drug Administration.Test(s) 304033-Tppypuf E(Alpha Tocopherol); 842105-Wnqxpwz E(Gamma Tocopherol)was developed and its performance characteristicsdetermined by [employer]. It has not been cleared or approvedby the Food and Drug Administration. Test(s) 967240-Lhnsxyd B6was developed a nd its performance characteristicsdetermined by [employer]. It has not been cleared or approvedby the Food and Drug Administration.Test(s) 610345-Gsd. B1, Whole Bloodwas developed and its performance characteristicsdetermined by [facility]. It has not been cleared or approvedby the Food and Drug Administration.Test(s) 231344-Fjetagl E(Alpha Tocopherol); 342105-Flxohvi E(Gamma Tocopherol)was developed and its performance characteristicsdetermined by [facility]. It has not been cleared or approvedby the Food and Drug Administration. Test(s) 133075-Kqyghng B6was developed a nd its performance characteristicsdetermined by [facility]. It has not been cleared or approvedby the Food and Drug Administration.Test(s) 132380-Xcg. B1, Whole Bloodwas developed and its performance characteristicsdetermined by [facility]. It has not been cleared or approvedby the Food and Drug Administration.Test(s) 490828-Zewfifc E(Alpha Tocopherol); 253967-Gtyidgv E(Gamma Tocopherol)was developed and its performance characteristicsdetermined by [facility]. It has not been cleared or approvedby the Food and Drug Administration. Test(s) 873679-Jbudkhz B6was developed a nd its performance characteristicsdetermined by [facility]. It has not been cleared or approvedby the Food and Drug Administration.Test(s) 425508-Rvx. B1, Whole Bloodwas developed and its performance characteristicsdetermined by [facility]. It has not been cleared or approvedby the Food and Drug Administration.Test(s) 452601-Ciqdptf E(Alpha Tocopherol); 582359-Atuvtdc E(Gamma Tocopherol)was developed and its performance characteristicsdetermined by [facility]. It has not been cleared or approvedby the Food and Drug Administration. Test(s) 200254-Kjwcoky B6was developed a nd its performance characteristicsdetermined by [facility]. It has not been cleared or approvedby the Food and Drug Administration.Test(s) 023052-Gmn. B1, Whole Bloodwas developed and its performance characteristicsdetermined by [facility]. It has not been cleared or approvedby the Food and Drug Administration.Test(s) 587701-Uniptkv E(Alpha Tocopherol); 428720-Mwqqtfm E(Gamma Tocopherol)was developed and its performance characteristicsdetermined by [facility]. It has not been cleared or approvedby the Food and Drug Administration. Test(s) 339534-Ishzxxw B6was developed a nd its performance characteristicsdetermined by [facility]. It has not been cleared or approvedby the Food and Drug Administration.Test(s) 432090-For. B1, Whole Bloodwas developed and its performance characteristicsdetermined by [facility]. It has not been cleared or approvedby the Food and Drug Administration.Test(s) 655448-Vguxebq E(Alpha Tocopherol); 345201-Kvtgwml E(Gamma Tocopherol)was developed and its performance characteristicsdetermined by [facility]. It has not been cleared or approvedby the Food and Drug Administration. Test(s) 822445-Yaqrhmd B6was developed a nd its performance characteristicsdetermined by [facility]. It has not been cleared or approvedby the Food and Drug Administration.Test(s) 086398-Zkx. B1, Whole Bloodwas developed and its performance characteristicsdetermined by [facility]. It has not been cleared or approvedby the Food and Drug Administration.Test(s) 765917-Qqodfdk E(Alpha Tocopherol); 316732-Xlggwwl E(Gamma Tocopherol)was developed and its performance characteristicsdetermined by [facility]. It has not been cleared or approvedby the Food and Drug Administration. Test(s) 627370-Rwkochv B6was developed a nd its performance characteristicsdetermined by [facility]. It has not been cleared or approvedby the Food and Drug Administration.Test(s) 991392-Fni. B1, Whole Bloodwas developed and its performance characteristicsdetermined by [facility]. It has not been cleared or approvedby the Food and Drug Administration.Test(s) 188573-Zwlycqa E(Alpha Tocopherol); 130442-Setiwwz E(Gamma Tocopherol)was developed and its performance characteristicsdetermined by [facility]. It has not been cleared or approvedby the Food and Drug Administration. Name Value Range Interpretation Code Description Data Julianna rce(s) Supporting Document(s) Albumin [Mass/volume] in Serum or Plasma by Electrophoresis 3.4 g/d L 2.9-4.4 [facility] Alpha 1 globulin [Mass/volume] in Serum or Plasma by Electro phoresis 0.2 g/dL 0.0-0.4 [facility] Alpha 2 globulin [Mass/volume] in Serum or Plasma by Electro phoresis 0.8 g/dL 0.4-1.0 [facility] Beta globulin [Mass/volume] in Serum or Plasma by Electropho resis 1.0 g/dL 0.7-1.3 [facility] Protein.monoclonal [Mass/volume] in Serum or Plasma by Electrophoresis Not Observed Not Observed [facility] Gamma globulin [Mass/volume] in Serum or Plasma by Electroph oresis 1.8 g/dL 0.4-1.8 [facility] Globulin [Mass/volume] in Serum by calculation 3.8 g/dL 2.2-3.9 [facility] Albumin/Globulin [Mass Ratio] in Serum or Plasma 0.9 0.7-1.7 [facility] Protein [Mass/volume] in Serum or Plasma 7.2 g/dL 6.0-8.5 [facility] Laboratory comment [Text] in Report Narrative Comment . 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 Report SEE SCANNED REPORT [facility] ID Date Data Source [id number] 11/25/2019 08:06:00 PM EDT [facility] Test(s) 203171-Squxgdb B6was developed a nd its performance characteristicsdetermined by [employer]. It has not been cleared or approvedby the Food and Drug Administration.Test(s) 320780-Tja. B1, Whole Bloodwas developed and its performance characteristicsdetermined by [employer]. It has not been cleared or approvedby the Food and Drug Administration.Test(s) 599144-Fgrance E(Alpha Tocopherol); 922915-Peuxsss E(Gamma Tocopherol)was developed and its performance characteristicsdetermined by [facility]. It has not been cleared or approvedby the Food and Drug Administration. Test(s) 669281-Pyihkie B6was developed a nd its performance characteristicsdetermined by [employer]. It has not been cleared or approvedby the Food and Drug Administration.Test(s) 263650-Emd. B1, Whole Bloodwas developed and its performance characteristicsdetermined by [facility]. It has not been cleared or approvedby the Food and Drug Administration.Test(s) 224957-Bvsorfc E(Alpha Tocopherol); 257340-Sccwnoa E(Gamma Tocopherol)was developed and its performance characteristicsdetermined by [facility]. It has not been cleared or approvedby the Food and Drug Administration. Test(s) 061921-Uyelljj B6was developed a nd its performance characteristicsdetermined by [facility]. It has not been cleared or approvedby the Food and Drug Administration.Test(s) 908462-Xxx. B1, Whole Bloodwas developed and its performance characteristicsdetermined by [facility]. It has not been cleared or approvedby the Food and Drug Administration.Test(s) 574822-Gqbdbts E(Alpha Tocopherol); 975298-Cyupeka E(Gamma Tocopherol)was developed and its performance characteristicsdetermined by [facility]. It has not been cleared or approvedby the Food and Drug Administration. Test(s) 564275-Uqrmwus B6was developed a nd its performance characteristicsdetermined by [facility]. It has not been cleared or approvedby the Food and Drug Administration.Test(s) 347485-Olk. B1, Whole Bloodwas developed and its performance characteristicsdetermined by [facility]. It has not been cleared or approvedby the Food and Drug Administration.Test(s) 362645-Gwtfcms E(Alpha Tocopherol); 355409-Pxpuilv E(Gamma Tocopherol)was developed and its performance characteristicsdetermined by [facility]. It has not been cleared or approvedby the Food and Drug Administration. Test(s) 866432-Xicgjio B6was developed a nd its performance characteristicsdetermined by [facility]. It has not been cleared or approvedby the Food and Drug Administration.Test(s) 751989-Kln. B1, Whole Bloodwas developed and its performance characteristicsdetermined by [facility]. It has not been cleared or approvedby the Food and Drug Administration.Test(s) 264384-Cowqqxc E(Alpha Tocopherol); 407448-Atwoekd E(Gamma Tocopherol)was developed and its performance characteristicsdetermined by [facility]. It has not been cleared or approvedby the Food and Drug Administration. Test(s) 672448-Efviwic B6was developed a nd its performance characteristicsdetermined by [facility]. It has not been cleared or approvedby the Food and Drug Administration.Test(s) 424600-Pue. B1, Whole Bloodwas developed and its performance characteristicsdetermined by [facility]. It has not been cleared or approvedby the Food and Drug Administration.Test(s) 974416-Ycittis E(Alpha Tocopherol); 073087-Cpoxdfe E(Gamma Tocopherol)was developed and its performance characteristicsdetermined by [facility]. It has not been cleared or approvedby the Food and Drug Administration. Test(s) 869775-Fpbpgul B6was developed a nd its performance characteristicsdetermined by [facility]. It has not been cleared or approvedby the Food and Drug Administration.Test(s) 288692-Rdc. B1, Whole Bloodwas developed and its performance characteristicsdetermined by [facility]. It has not been cleared or approvedby the Food and Drug Administration.Test(s) 984928-Qmyddkd E(Alpha Tocopherol); 915587-Rbxgmrr E(Gamma Tocopherol)was developed and its performance characteristicsdetermined by [facility]. It has not been cleared or approvedby the Food and Drug Administration. Test(s) 896482-Qlbrolt B6was developed a nd its performance characteristicsdetermined by [facility]. It has not been cleared or approvedby the Food and Drug Administration.Test(s) 892018-Lpu. B1, Whole Bloodwas developed and its performance characteristicsdetermined by [facility]. It has not been cleared or approvedby the Food and Drug Administration.Test(s) 163674-Vfetjzy E(Alpha Tocopherol); 354202-Yfrssjx E(Gamma Tocopherol)was developed and its performance characteristicsdetermined by [facility]. It has not been cleared or approvedby the Food and Drug Administration. Test(s) 876686-Tefqxea B6was developed a nd its performance characteristicsdetermined by [facility]. It has not been cleared or approvedby the Food and Drug Administration.Test(s) 578764-Puw. B1, Whole Bloodwas developed and its performance characteristicsdetermined by [facility]. It has not been cleared or approvedby the Food and Drug Administration.Test(s) 675832-Vuqvieg E(Alpha Tocopherol); 498612-Ircqqgt E(Gamma Tocopherol)was developed and its performance characteristicsdetermined by [facility]. It has not been cleared or approvedby the Food and Drug Administration. Name Value Range Interpretation Code Description Data Julianna rce(s) Supporting Document(s) DNA double strand Ab [Units/volume] in Serum <1 [IU]/mL 0-9 [facility] Negat karthik <5 Equivocal 5 - 9 Positive > 9Performed at: RN - [facility] [address] [id number] Director: Audrey Neumann MD, Phone: [phone] ID Date Data Source [id number] 11/25/2019 08:06:00 PM EDT [facility] Test(s) 704066-Ijfqjmb B6was developed a nd its performance characteristicsdetermined by [facility]. It has not been cleared or approvedby the Food and Drug Administration.Test(s) 769892-Mkt. B1, Whole Bloodwas developed and its performance characteristicsdetermined by [facility]. It has not been cleared or approvedby the Food and Drug Administration.Test(s) 601474-Mjwmoxo E(Alpha Tocopherol); 941055-Hxvhupa E(Gamma Tocopherol)was developed and its performance characteristicsdetermined by [facility]. It has not been cleared or approvedby the Food and Drug Administration. Test(s) 720595-Ywzzopf B6was developed a nd its performance characteristicsdetermined by [facility]. It has not been cleared or approvedby the Food and Drug Administration.Test(s) 037177-Pen. B1, Whole Bloodwas developed and its performance characteristicsdetermined by [facility]. It has not been cleared or approvedby the Food and Drug Administration.Test(s) 635310-Gtebqsz E(Alpha Tocopherol); 706438-Unyrxjo E(Gamma Tocopherol)was developed and its performance characteristicsdetermined by [facility]. It has not been cleared or approvedby the Food and Drug Administration. Test(s) 908254-Lxyerwy B6was developed a nd its performance characteristicsdetermined by [facility]. It has not been cleared or approvedby the Food and Drug Administration.Test(s) 271316-Kjq. B1, Whole Bloodwas developed and its performance characteristicsdetermined by [facility]. It has not been cleared or approvedby the Food and Drug Administration.Test(s) 494573-Kmltnej E(Alpha Tocopherol); 556520-Yuffhlm E(Gamma Tocopherol)was developed and its performance characteristicsdetermined by [facility]. It has not been cleared or approvedby the Food and Drug Administration. Test(s) 601476-Hizsehb B6was developed a nd its performance characteristicsdetermined by [facility]. It has not been cleared or approvedby the Food and Drug Administration.Test(s) 105559-Pkw. B1, Whole Bloodwas developed and its performance characteristicsdetermined by [facility]. It has not been cleared or approvedby the Food and Drug Administration.Test(s) 584940-Vocethy E(Alpha Tocopherol); 383732-Zzbshlm E(Gamma Tocopherol)was developed and its performance characteristicsdetermined by [facility]. It has not been cleared or approvedby the Food and Drug Administration. Test(s) 493525-Jkfvmdu B6was developed a nd its performance characteristicsdetermined by [facility]. It has not been cleared or approvedby the Food and Drug Administration.Test(s) 469568-Fzl. B1, Whole Bloodwas developed and its performance characteristicsdetermined by [facility]. It has not been cleared or approvedby the Food and Drug Administration.Test(s) 801269-Szlhkve E(Alpha Tocopherol); 843046-Oztfxtz E(Gamma Tocopherol)was developed and its performance characteristicsdetermined by [facility]. It has not been cleared or approvedby the Food and Drug Administration. Test(s) 865701-Npphptp B6was developed a nd its performance characteristicsdetermined by [facility]. It has not been cleared or approvedby the Food and Drug Administration.Test(s) 490407-Ovu. B1, Whole Bloodwas developed and its performance characteristicsdetermined by [facility]. It has not been cleared or approvedby the Food and Drug Administration.Test(s) 092819-Ygbxdjc E(Alpha Tocopherol); 473373-Fwqouwl E(Gamma Tocopherol)was developed and its performance characteristicsdetermined by [facility]. It has not been cleared or approvedby the Food and Drug Administration. Test(s) 850469-Wbfcxmw B6was developed a nd its performance characteristicsdetermined by [facility]. It has not been cleared or approvedby the Food and Drug Administration.Test(s) 950396-Elf. B1, Whole Bloodwas developed and its performance characteristicsdetermined by [facility]. It has not been cleared or approvedby the Food and Drug Administration.Test(s) 562032-Tmxcjvt E(Alpha Tocopherol); 741943-Pfbqdyg E(Gamma Tocopherol)was developed and its performance characteristicsdetermined by [employer]. It has not been cleared or approvedby the Food and Drug Administration. Test(s) 881283-Vjhymsv B6was developed a nd its performance characteristicsdetermined by [employer]. It has not been cleared or approvedby the Food and Drug Administration.Test(s) 801216-Poj. B1, Whole Bloodwas developed and its performance characteristicsdetermined by [facility]. It has not been cleared or approvedby the Food and Drug Administration.Test(s) 964272-Xjfxpsi E(Alpha Tocopherol); 402099-Mvqxrxc E(Gamma Tocopherol)was developed and its performance characteristicsdetermined by [facility]. It has not been cleared or approvedby the Food and Drug Administration. Test(s) 321697-Lwgxwgf B6was developed a nd its performance characteristicsdetermined by [employer]. It has not been cleared or approvedby the Food and Drug Administration.Test(s) 823363-Srn. B1, Whole Bloodwas developed and its performance characteristicsdetermined by [facility]. It has not been cleared or approvedby the Food and Drug Administration.Test(s) 945913-Orvqxzr E(Alpha Tocopherol); 010109-Mjgmxsa E(Gamma Tocopherol)was developed and its performance characteristicsdetermined by [employer]. It has not been cleared or approvedby the Food and Drug Administration. Name Value Range Interpretation Code Description Data Julianna rce(s) Supporting Document(s) Nuclear Ab [Titer] in Serum by Immunofluorescence Positive . Above high normal [facility] Neg ative <1:80 Borderline 1:80 Positive >1:80 Centriole Ab [Titer] in Serum by Immunofluorescence . [facility] Nuclear Ab pattern.nucleolar [Titer] in Serum . [facility] Nuclear Ab pattern.nuclear membrane pore s [Titer] in Serum by Immunofluorescence . [facility] ital Nuclear Ab pattern.speckled [Titer] in Serum 1:1280 . Ab ove high normal [facility] Midbody Ab [Titer] in Serum by Immunofluorescence . [facility] Centromere Ab [Titer] in Serum by Immunofluorescence . [facility] Nuclear Ab pattern.nuclear dots [Titer] in Serum by Immunofluorescenc e . [facility] PCNA extractable nuclear Ab [Titer] in Serum by Immunofluorescence . [facility] Nuclear Ab Pattern Homogenous [Titer] in Serum . [facility] Mitotic spindle apparatus Ab [Titer] in Serum or Plasma by I mmunofluorescence . [facility] content manager Note Comment . [facility] A positive MAXIMUS result may occur in healt hy individuals (lowtiter) or be associated with a variety of diseases. Seeinterpretation chart which is not all inclusive:Pattern Antigen Detected Suggested Disease Association Homogeneous DNA(ds,ss), SLE - High titers Nucleosomes, Histones Drug-induced SLE Speckled Sm, TAPPER BIT, SCL-70, SLE,MCTD,PSS (diffuse form), SS-A/SS-B Sjogrens Nucleolar SCL-70, PM-1/SCL High titers Scleroderma, PM/DM Centromere Centromere PSS (limited form) w/Crest syndrome variable Nuclear Dot Sp100,h11-agjkml Primary Biliary Cirrhosis Nuclear GP210, Primary Biliary CirrhosisMembrane mata A,B,C Performed at: [facility] [id number] Director: Audrey Neumann MD, Phone: [phone] ID Date Data Source [id number] 11/25/2019 08:06:00 PM EDT [facility] Test(s) 895259-Gwzxryi B6was developed a nd its performance characteristicsdetermined by [facility]. It has not been cleared or approvedby the Food and Drug Administration.Test(s) 002173-Kow. B1, Whole Bloodwas developed and its performance characteristicsdetermined by [facility]. It has not been cleared or approvedby the Food and Drug Administration.Test(s) 274057-Gctljuw E(Alpha Tocopherol); 702732-Qedqdhn E(Gamma Tocopherol)was developed and its performance characteristicsdetermined by [facility]. It has not been cleared or approvedby the Food and Drug Administration. Test(s) 728272-Hmuvwub B6was developed a nd its performance characteristicsdetermined by [facility]. It has not been cleared or approvedby the Food and Drug Administration.Test(s) 992965-Xuz. B1, Whole Bloodwas developed and its performance characteristicsdetermined by [facility]. It has not been cleared or approvedby the Food and Drug Administration.Test(s) 477566-Lsvywzr E(Alpha Tocopherol); 423652-Ljywtnv E(Gamma Tocopherol)was developed and its performance characteristicsdetermined by [facility]. It has not been cleared or approvedby the Food and Drug Administration. Test(s) 528729-Ibqlsoa B6was developed a nd its performance characteristicsdetermined by [facility]. It has not been cleared or approvedby the Food and Drug Administration.Test(s) 377259-Lhk. B1, Whole Bloodwas developed and its performance characteristicsdetermined by [facility]. It has not been cleared or approvedby the Food and Drug Administration.Test(s) 935484-Wvvunsz E(Alpha Tocopherol); 402135-Ldrcxoo E(Gamma Tocopherol)was developed and its performance characteristicsdetermined by [facility]. It has not been cleared or approvedby the Food and Drug Administration. Test(s) 248886-Gupxfyf B6was developed a nd its performance characteristicsdetermined by [facility]. It has not been cleared or approvedby the Food and Drug Administration.Test(s) 470822-Cwt. B1, Whole Bloodwas developed and its performance characteristicsdetermined by [facility]. It has not been cleared or approvedby the Food and Drug Administration.Test(s) 346209-Klipxku E(Alpha Tocopherol); 481449-Tzynwcx E(Gamma Tocopherol)was developed and its performance characteristicsdetermined by [facility]. It has not been cleared or approvedby the Food and Drug Administration. Test(s) 567671-Qtcikbm B6was developed a nd its performance characteristicsdetermined by [facility]. It has not been cleared or approvedby the Food and Drug Administration.Test(s) 655553-Kiv. B1, Whole Bloodwas developed and its performance characteristicsdetermined by [facility]. It has not been cleared or approvedby the Food and Drug Administration.Test(s) 392260-Njmigwt E(Alpha Tocopherol); 412975-Edwxcnx E(Gamma Tocopherol)was developed and its performance characteristicsdetermined by [facility]. It has not been cleared or approvedby the Food and Drug Administration. Test(s) 554542-Yujnvld B6was developed a nd its performance characteristicsdetermined by [facility]. It has not been cleared or approvedby the Food and Drug Administration.Test(s) 789328-Cgj. B1, Whole Bloodwas developed and its performance characteristicsdetermined by [facility]. It has not been cleared or approvedby the Food and Drug Administration.Test(s) 200200-Nxvigxz E(Alpha Tocopherol); 811991-Uqvkasv E(Gamma Tocopherol)was developed and its performance characteristicsdetermined by [facility]. It has not been cleared or approvedby the Food and Drug Administration. Test(s) 393793-Hzeqmef B6was developed a nd its performance characteristicsdetermined by [facility]. It has not been cleared or approvedby the Food and Drug Administration.Test(s) 417413-Ivo. B1, Whole Bloodwas developed and its performance characteristicsdetermined by [facility]. It has not been cleared or approvedby the Food and Drug Administration.Test(s) 824081-Ywazpkt E(Alpha Tocopherol); 709937-Mkgaiyu E(Gamma Tocopherol)was developed and its performance characteristicsdetermined by [facility]. It has not been cleared or approvedby the Food and Drug Administration. Test(s) 067872-Hmzbcij B6was developed a nd its performance characteristicsdetermined by [facility]. It has not been cleared or approvedby the Food and Drug Administration.Test(s) 866588-Chi. B1, Whole Bloodwas developed and its performance characteristicsdetermined by [facility]. It has not been cleared or approvedby the Food and Drug Administration.Test(s) 817029-Mkrfyfq E(Alpha Tocopherol); 130058-Qrjpswa E(Gamma Tocopherol)was developed and its performance characteristicsdetermined by [facility]. It has not been cleared or approvedby the Food and Drug Administration. Test(s) 838327-Sdshxel B6was developed a nd its performance characteristicsdetermined by [facility]. It has not been cleared or approvedby the Food and Drug Administration.Test(s) 303475-Pap. B1, Whole Bloodwas developed and its performance characteristicsdetermined by [facility]. It has not been cleared or approvedby the Food and Drug Administration.Test(s) 951203-Tugvkrv E(Alpha Tocopherol); 950235-Vtgykft E(Gamma Tocopherol)was developed and its performance characteristicsdetermined by [facility]. It has not been cleared or approvedby the Food and Drug Administration. Name Value Range Interpretation Code Description Data Julianna rce(s) Supporting Document(s) Sjogrens syndrome-A extractable nuclear Ab [Units/volume] in Serum >8.0 AI 0.0-0.9 Above high normal [facility] Sjogrens syndrome-B extractable nuclear Ab [Units/volume] in Serum <0.2 AI 0.0-0.9 [facility] ID Date Data Source [id number] 11/21/2019 03:36:00 PM EDT [facility] Name Value Range Interpretation Code Description Data Julianna rce(s) Supporting Document(s) Alpha tocopherol [Mass/volume] in Serum or Plasma Laboratory test res ult [facility] ([facility], ) ID Date Data Source [id number] 11/21/2019 03:36:00 PM EDT [facility] ([facility]) Name Value Range Interpretation Code Description Data Julianna rce(s) Supporting Document(s) Neutrophil cytoplasmic Ab.classic [Titer] in Serum by Immunofluorescence Laboratory test result [facility] ([facility]) Neutrophil cytoplasmic Ab.perinuclear [Titer] in Serum by Immunofluorescence Laboratory test result [facility] ([facility]) The presence of positive fluorescence ex hibiting P-ANCA or C-ANCA patterns alone is not specific for the diagnosis of Kirk's Granulomatosis (WG) or microscopic polyangiitis. Decisions about treatment should not be based solely on ANCA IFA results. The [employer] ANCA Group Consensus recommends follow up testing of positive sera with both AZ- 3 and MPO-ANCA enzyme immunoassays. As m any as 5% serum samples are positive only by EIA. Ref. AM J Clin Pathol 1999;111:507-513. Neutrophil cytoplasmic Ab.perinuclear.at ypical [Titer] in Serum by Immunofluorescence Laboratory test result [facility] ([facility]) The atypical pANCA pattern has been obse rved in a significant percentage of patients with ulcerative colitis, primary sclerosing cholangitis and autoimmune hepatitis. Performed at: [facility] [address] [id number] Supervisor: Renetta Aguilera MD, Phone: [phone] ID Date Data Source [id number] 11/21/2019 03:36:00 PM EDT [facility] ([facility]) Name Value Range Interpretation Code Description Data Julianna rce(s) Supporting Document(s) Alpha tocopherol [Mass/volume] in Serum or Plasma 11.8 mg/L 9.0-29.0 [facility] ([facility], ) Gamma tocopherol [Mass/volume] in Serum or Plasma 3.3 mg/L 0.5-4.9 [facility] ([facility]) Reference intervals for alpha and gamma- tocopherol determined from National Health and Nutrition Examination Survey, 4138-6466. Individuals with alpha-tocopherol levels less than 5.0 mg/L are considered vitamin E deficient. Performed at: [facility] [address] [id number] Screw Supervisor: Renetta Aguilera MD, Phone: [phone] ID Date Data Source [id number] 11/21/2019 03:36:00 PM EDT [facility] ([facility], ) Name Value Range Interpretation Code Description Data Julianna rce(s) Supporting Document(s) Pyridoxine [Mass/volume] in Serum or Plasma 11.6 UC[facility] 2.0-32.8 [facility] ([facility], ) Performed at: [address] [id number] Screw Supervisor: Renetta Aguilera MD, Phone: [phone] Nuclear Ab [Presence] in Serum by Immunofluorescence Laboratory deidre t result [facility] ([facility], ) Thiamine [Mass/volume] in Blood 175.2 UCUM 66.5-200.0 [facility] ([facility], ) Performed at: [address] [id number] Screw Supervisor: Renetta Aguilera MD, Phone: [phone] Treponema pallidum Ab [Presence] in Serum Laboratory test result [facility] ([facility], ) Performed at: [address] [id number] Screw Supervisor: Audrey Neumann MD, Phone: [phone] Performed at: [address] [id number] Screw Supervisor: Renetta Aguilera MD, Phone: [phone] ID Date Data Source [id number] 11/21/2019 03:36:00 PM EDT [facility] ([facility], ) Name Value Range Interpretation Code Description Data Julianna rce(s) Supporting Document(s) Albumin [Mass/volume] in Serum or Plasma by Electrophoresis 3.4 g/d L 2.9-4.4 [facility] ([facility], ) Report Laboratory test result [facility] ([facility], ) SEE SCANNED REPORT Alpha 1 globulin [Mass/volume] in Serum or Plasma by Electro phoresis 0.2 g/dL 0.0-0.4 [facility] ([facility], ) Alpha 2 globulin [Mass/volume] in Serum or Plasma by Electro phoresis 0.8 g/dL 0.4-1.0 [facility] ([facility]) Gamma globulin [Mass/volume] in Serum or Plasma by Electroph oresis 1.8 g/dL 0.4-1.8 [facility] ([facility]) Protein.monoclonal [Mass/volume] in Serum or Plasma by Electrophoresis Laboratory test result [facility] ([facility]) Beta globulin [Mass/volume] in Serum or Plasma by Electropho resis 1.0 g/dL 0.7-1.3 [facility] ([facility]) Globulin [Mass/volume] in Serum by calculation 3.8 g/dL 2.2-3.9 [facility] ([facility]) Albumin/Globulin [Mass Ratio] in Serum or Plasma 0.9 0.7-1.7 [facility] ([facility]) Protein [Mass/volume] in Serum or Plasma 7.2 g/dL 6.0-8.5 [facility] ([facility]) Laboratory comment [Text] in Report Narrative Laboratory test result [facility] ([facility]) Protein electrophoresis scan will follow via computer, mail, or electric locomotive 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 ID Date Data Source [id number] 11/21/2019 03:36:00 PM EDT [facility] ([facility]) Name Value Range Interpretation Code Description Data Julianna rce(s) Supporting Document(s) Centriole Ab [Titer] in Serum by Immunofluorescence Laboratory test result [facility] ([facility]) No Reportable Result Nuclear Ab pattern.nucleolar [Titer] in Serum Laboratory test result [facility] ([facility]) No Reportable Result Nuclear Ab [Titer] in Serum by Immunofluorescence Laboratory test res ult [facility] ([facility]) <content>Negative <1:80</content>
<content>Borderline 1:80</content>
<content>Positive >1:80</content>
<content></content> Nuclear Ab pattern.speckled [Titer] in Serum Laboratory test result [facility] ([facility]) Nuclear Ab pattern.nuclear membrane pore s [Titer] in Serum by Immunofluorescence Laboratory test result [facility] ([facility]) No Reportable Result Centromere Ab [Titer] in Serum by Immunofluorescence Laboratory deidre t result [facility] ([facility]) No Reportable Result Midbody Ab [Titer] in Serum by Immunofluorescence Laboratory test res ult [facility] ([facility], ) No Reportable Result Nuclear Ab pattern.nuclear dots [Titer] in Serum by Im munofluorescence Laboratory test result [facility] ([facility], ) No Reportable Result PCNA extractable nuclear Ab [Titer] in Serum by Immuno fluorescence Laboratory test result [facility] ([facility], ) No Reportable Result Nuclear Ab Pattern Homogenous [Titer] in Serum Laboratory test result [facility] ([facility], ) No Reportable Result content manager Note Laboratory test result [facility] ([facility], ) A positive MAXIMUS result may occur in healt hy individuals (low titer) or be associated with a variety of diseases. See interpretation chart which is not all inclusive: Pattern Antigen Detected Suggested Disease Association --------- Homogeneous DNA(ds,ss), SLE - High titers Nucleosomes, Histones Drug-induced SLE --------- Speckled Sm, TAPPER BIT, SCL-70, SLE,MCTD,PSS (diffuse form), SS-A/SS-B Sjogrens --------- Nucleolar SCL-70, PM-1/SCL High titers Scleroderma, PM/DM --------- Centromere Centromere PSS (limited form) w/Crest syndrome variable --------- Nuclear Dot Sp100,a12-xmhcvf Primary Biliary Cirrhosis --------- Nuclear GP210, Primary Biliary Cirrhosis Membrane mata A,B,C --------- Performed at: RN - [facility] [address] [id number] Screw Supervisor: Audrey Neumann MD, Phone: [phone] Mitotic spindle apparatus Ab [Titer] in Serum or Plasm a by Immunofluorescence Laboratory test result [facility] ([facility], ) No Reportable Result ID Date Data Source [id number] 11/21/2019 03:36:00 PM EDT [facility] ([facility] ) Name Value Range Interpretation Code Description Data Julianna rce(s) Supporting Document(s) Sjogrens syndrome-B extractable nuclear Ab [Units/volu me] in Serum Laboratory test result 0.0-0.9 [facility] ([facility], ) Sjogrens syndrome-A extractable nuclear Ab [Units/volu me] in Serum Laboratory test result 0.0-0.9 [facility] ([facility] ) ID Date Data Source [id number] 11/21/2019 03:36:00 PM EDT [facility] ([facility] ) Name Value Range Interpretation Code Description Data Julianna rce(s) Supporting Document(s) DNA double strand Ab [Units/volume] in Serum Laboratory test result 0 -9 [facility] ([facility], ) <content>Negative <5</content>
<content>Equivocal 5 - 9</content>
<content>Positive >9</content>
<content>Performed at: RN - [facility] [place]</content>
<content>[address] [place], [place] [id number]</content>
<content>Screw Supervisor: Audrey Neumann MD, Phone: [phone]</content>
<content></content> ID Date Data Source [id number] 11/21/2019 03:36:00 PM EDT [facility] ([facility], ) Name Value Range Interpretation Code Description Data Julianna rce(s) Supporting Document(s) Folate [Mass/volume] in Serum or Plasma 14.5 ng/mL [facility] ([facility], ) FOLATE INTERPRETATION NORMAL: GREATER THAN 5.38 INDETERMINATE: 3.38 - 5.38 DEFICIENT: LESS THAN 3.37 Thyrotropin [Units/volume] in Serum or Plasma 2.61 u[iU]/mL 0.35-5.50 [facility] ([facility], ) Rheumatoid factor [Units/volume] in Serum or Plasma 96.0 [IU]/mL 0.0- 14.0 [facility] ([facility], ) Erythrocyte sedimentation rate by 2H Westergren method 20 UCUM 0-3 0 [facility] ([facility], ) Cobalamin (Vitamin B12) [Mass/volume] in Serum or Plasma 467 pg/mL 2 11-911 [facility] ([facility], ) ID Date Data Source [id number] 11/21/2019 03:36:00 PM EDT [facility] ([facility]) Name Value Range Interpretation Code Description Data Julianna rce(s) Supporting Document(s) Urea nitrogen [Mass/volume] in Serum or Plasma 10 mg/dL 9-23 [facility] ([facility], ) Sodium [Moles/volume] in Serum or Plasma 144 mmol/L 132-146 [facility] ([facility], ) Chloride [Moles/volume] in Serum or Plasma 109 mmol/L 99-109 [facility] ([facility], ) Potassium [Moles/volume] in Serum or Plasma 4.6 mmol/L 3.5-5.5 [facility] ([facility]) Carbon dioxide, total [Moles/volume] in Serum or Plasma 31 mmol/L 20 -31 [facility] ([facility], ) Anion gap in Serum or Plasma 9 mmol/L 8-16 [facility] ([facility]) Glucose [Mass/volume] in Serum or Plasma 113 mg/dL 74-106 [facility] ([facility]) Creatinine 0.7 mg/dL 0.5-1.1 [facility] ([facility]) Alanine aminotransferase [Enzymatic acti vity/volume] in Serum or Plasma by With P-5'-P 48 U/L 10-49 [facility] ([facility]) Glomerular filtration rate/1.73 sq M.pre dicted [Volume Rate/Area] in Serum or Plasma Laboratory test result [facility] ([facility]) Aspartate aminotransferase [Enzymatic ac tivity/volume] in Serum or Plasma by With P-5'-P 58 U/L 0-33 [facility] Calcium [Mass/volume] in Serum or Plasma 8.9 mg/dL 8.5-10.1 [facility] ([facility]) Alkaline phosphatase [Enzymatic activity/volume] in Serum or Plasma 123 U/L 45-129 [facility] ([facility]) Bilirubin.total [Mass/volume] in Serum or Plasma 0.4 mg/dL 0.3-1.2 [facility] ([facility]) Albumin [Mass/volume] in Serum or Plasma by Bromocresol purple (BCP) dye binding method 3.4 g/dL 3.2-4.8 [facility] ([facility]) Protein [Mass/volume] in Serum or Plasma 7.5 g/dL 5.7-8.2 [facility] ([facility]) ID Date Data Source [id number] 11/21/2019 03:36:00 PM EDT [facility] ([facility]) Name Value Range Interpretation Code Description Data Julianna rce(s) Supporting Document(s) Leukocytes [#/volume] in Blood by Automated count 10.1 10*3/uL 4.45-1 0.71 [facility] ([facility]) Erythrocytes [#/volume] in Blood by Automated count 4.50 10*6/uL 4.20 -5.40 [facility] ([facility]) Hematocrit [Volume Fraction] of Blood by Automated count 42.1 % 3 7-47 [facility] ([facility]) Hemoglobin [Moles/volume] in Blood 14.2 g/dL 10.7-15.4 [facility] ([facility]) Erythrocyte mean corpuscular volume [Ent itic volume] in Cord blood by Automated count 93.6 fL 80-96 [facility] ([facility]) Erythrocyte mean corpuscular hemoglobin [Entitic mass] by Automated count 31.6 pg 27-31 [facility] ([facility]) Erythrocyte mean corpuscular hemoglobin concentration [Mass/volume] in Cord blood 33.7 g/dL 33-37 [facility] ([facility]) Erythrocyte distribution width [Entitic volume] by Automated count 16 % 11-15 [facility] ([facility]) Platelets [#/volume] in Blood by Automated count 303 10*3/uL 130-472 [facility] ([facility]) Platelet mean volume [Entitic volume] in Blood 10.5 fL 9.1-13.1 [facility] ([facility]) Neutrophils [#/volume] in Blood by Automated count 3.2 U 1.7-7.6 [facility] ([facility]) Neutrophils/100 leukocytes in Blood by Automated count 31.8 % 41- 77 [facility] ([facility]) Lymphocytes [#/volume] in Blood by Automated count 4.8 U 0.6-4.6 [facility] ([facility]) Lymphocytes/100 leukocytes in Blood by Automated count 47.7 % 14- 46 [facility] ([facility]) Monocytes [#/volume] in Blood by Automated count 1.1 U 0.2-1.2 [facility] ([facility]) Monocytes/100 leukocytes in Blood by Automated count 10.8 % 4-12 [facility] ([facility]) Eosinophils [#/volume] in Blood by Automated count 0.9 U 0.0-0.5 [facility] ([facility]) Eosinophils/100 leukocytes in Blood by Automated count 8.6 % 0-7 [facility] Basophils/100 leukocytes in Blood by Automated count 1.0 % 0.4-1 .3 [facility] Laboratory test finding (navigational concept) 0 % [facility] ([facility] ) Basophils [#/volume] in Blood by Automated count 0.1 U 0.0-0.2 [facility] ([facility]) Immature granulocytes [Presence] in Blood by Automated count 0.1 0-2 [facility] ([facility]) Immature granulocytes [#/volume] in Blood by Automated count 0.0 U 0-0.1 [facility] ([facility], ) Laboratory test finding (navigational concept) 0 U [facility] ([facility]) Manual Differential panel - Blood Laboratory test result [facility] ([facility]) ID Date Data Source [id number] 11/11/2019 03:36:00 PM EDT [facility] [address] [place] [id number] [phone] NAME SEX PT STATUS ACCOUNT NUMBER [place] MCMANUS REG REF [id number] ORDERING PHYSICIAN LOCATION MEDICAL RECORD NO. Ross Kaba M.D. EKG [id number] ATTENDING PHYSICIAN DATE OF DATE OF EXAM/TIME [...] Continuation of medical therapy. Reported By Roger Méndez MD on 11/11/19 1536 Signed By Roger Méndez MD on 12/03/19 1056 <<Signature on File>> Date Time CC: Roger Méndez M.D.; Keri Church DO Techn: GIOVANY Trans Dt/Tm: 11/11/19 1606 Trans by: LO Prjesenia Dt/Tm: : Total DLP = 0.00 mGy-cm : Total Radiation Dose = 0.0000 mSv Lifetime Dose: 1.9313 mSv Name Value Range Interpretation Code Description Data Julianna rce(s) Supporting Document(s) ID Date Data Source [id number] 11/11/2019 10:36:00 AM EDT [facility] ST RESS TEST CONSULTATION NAME: [place] MCMANUS : 1950 AGE: 69 MR#: [id number] ADMITTING DATE: 11/11/[address]: DISCHARGE DATE: [...] Keri Church DO <Electronically signed by Roger Méndez MD> Roger Méndez MD 12/03/19 1056 Roger Méndez M.D. Cosigner: D: RAYNA 11/11/19 1036 T: DELORIS 11/11/19 1056 CC: Roger Méndez M.D.; Keri Church DO LAST EDIT: Name Value Range Interpretation Code Description Data Julianna rce(s) Supporting Document(s) ID Date Data Source [id number] 11/04/2019 01:01:00 PM EDT [facility] ([facility]) Name Value Range Interpretation Code Description Data Julianna rce(s) Supporting Document(s) Echocardiogram Laboratory test result [facility] ([facility]) ID Date Data Source [facility] Shoulder, complete 11/04/2019 11:36:25 AM EDT [facility] ([facility]) Name Value Range Interpretation Code Description Data Julianna rce(s) Supporting Document(s) [facility] ([facility]) ID Date Data Source [facility] SPINE LS COMPLETE 11/04/2019 11:36:13 AM EDT [facility] ([facility]) Name Value Range Interpretation Code Description Data Julianna rce(s) Supporting Document(s) [facility] ([facility]) ID Date Data Source [facility] Knee, complete 11/04/2019 11:36:02 AM EDT [facility] ([facility]) Name Value Range Interpretation Code Description Data Julianna rce(s) Supporting Document(s) [facility] ([facility]) ID Date Data Source [facility] Hand, complete 11/04/2019 11:35:49 AM EDT [facility] ([facility]) Name Value Range Interpretation Code Description Data Julianna rce(s) Supporting Document(s) [facility] ([facility]) ID Date Data Source [id number] 11/03/2019 02:49:00 PM EDT [facility] ([facility]) Name Value Range Interpretation Code Description Data Julianna rce(s) Supporting Document(s) EKG Laboratory test result [facility] ([facility]) ID Date Data Source [id number] 10/28/2019 01:08:00 PM EDT [facility] [address] [place] [address] [phone] NAME SEX PT STATUS ACCOUNT NUMBER [place] MCM[place] REG REF [id number] ORDERING PHYSICIAN LOCATION MEDICAL RECORD NO. Keri Church DO CT [id number] ATTENDING PHYSICIAN DATE OF DATE OF EXAM/TIME Keri Church DO 1950 03/24/20 / 1259 TYPE / EXAM CT C-Spine [...] Dt/Tm: : Total DLP = 400.00 mGy-cm 1051-4655: Total Radiation Dose = 0.0000 mSv Lifetime Dose: 1.9313 mSv Name Value Range Interpretation Code Description Data Julianna rce(s) Supporting Document(s) ID Date Data Source [id number] 10/28/2019 01:01:00 PM EDT [facility] [address] [place] [address] [phone] NAME SEX PT STATUS ACCOUNT NUMBER [place] REG REF [id number] ORDERING PHYSICIAN LOCATION MEDICAL RECORD NO. 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 CT [...] rce(s) Supporting Document(s) ID Date Data Source [id number] 10/22/2019 04:46:00 PM EDT [facility] ED Physician Documentation NAME: [place] MCMANUS : 1950 AGE: 69 MR#: [id number] SERVICE DATE: 10/22/[address]: Apollo Valente MD PRIMARY CARE DR: Keri Church DO ROOM#: HPI (Adult, General) General Chief Complaint: Multi system (Adult) Stated Complaint: WEAKNESS, HIGH BLOOD PRESSURE Resident [facility], travel outisde home, exposure to hot tubs:: [...] Needed: Yes PMH/PSH from Triage: Medical History (Updat ed 06/24/19 @ 12:01 by Keri Church [...] outside the country (where) Coronavirus risk:travel to [facility];contact w/ high risk person In the last 14 days before symptom onset, does the patient have a history of travel from [facility]; or close contact with a person who is under investigation for 2019-nCoV while that person was ill; or in the last 14 days close contact with an laboratory- confirmed 2019-nCoV ill patient? Has patient experienced No coronavirus [...] % (Auto) 57.6, Lymph % (Auto) 27.0, [place] % (Auto) 8.4, Eos % (Auto) 5.9, Baso % (Auto) 0.8, Lymph # (Auto) 3.9, Abs Immat Gran (auto) 0.0, Add Manual Diff No, Absolute Neutrophils 8.3 H, Monocytes # 1.2, Absolute Eosinophils 0.8 H, Absolute Basophils 0.1 10/22/19 16:45: PT 25.2 H, INR 2.6 H, PTT ([place]) 35.7 H 10/22/19 16:45: Sodium 145, Potassium [...] Discharge Order (Routine); Ordered 10/22/19 Ordered By: Apollo Valente Interventions Interventions: ED General Adult Last Done: 10/22/19 15:50 Report Signers: <Electronically signed by Apollo Valente MD> Apollo Valente MD 10/22/19 1849 Apollo Valente MD SIGNATURE DA Report Cosigners: D: SKHANSA 10/22/191645 T: SKHANSA 10/22/191645 CC: Keri Church DO Name Value Range Interpretation Code Description Data Julianna rce(s) Supporting Document(s) ID Date Data Source [id number] 10/22/2019 04:49:00 PM EDT [facility] Name Value Range Interpretation Code Description Data Julianna rce(s) Supporting Document(s) Leukocytes [#/volume] in Blood by Automated count 14.4 10*3/uL 4.45-10.71 Above high normal [facility] Erythrocytes [#/volume] in Blood by Automated count 5.04 10*6/uL 4.20 -5.40 N [facility] Hemoglobin [Moles/volume] in Blood 15.9 g/dL 10.7-15.4 Above high n ormal [facility] Hematocrit [Volume Fraction] of Blood by Automated count 47.4 % 37-47 Above high normal [facility] Erythrocyte mean corpuscular volume [Ent itic volume] in Cord blood by Automated count 94.0 fL 80-96 N [facility] ital Erythrocyte mean corpuscular hemoglobin [Entitic mass] by Automated count 31.5 pg 27-31 Above high normal [facility] Erythrocyte mean corpuscular hemoglobin concentration [Mass/volume] in Cord blood 33.5 g/dL 33-37 N [facility] ital Erythrocyte distribution width [Entitic volume] by Automated cou nt 16 % 11-15 Above high normal [facility] Platelets [#/volume] in Blood by Automated count 280 10*3/uL 130-472 N [facility] Platelet mean volume [Entitic volume] in Blood 10.7 fL 9.1-13.1 N [facility] Neutrophils/100 leukocytes in Blood by Automated count 57.6 % 41- 77 N [facility] Neutrophils [#/volume] in Blood by Automated count 8.3 U 1.7-7.6 Above high normal [facility] Lymphocytes/100 leukocytes in Blood by Automated count 27.0 % 14- 46 N [facility] Lymphocytes [#/volume] in Blood by Automated count 3.9 U 0.6-4.6 N [facility] Monocytes/100 leukocytes in Blood by Automated count 8.4 % 4-12 N [facility] Monocytes [#/volume] in Blood by Automated count 1.2 U 0.2-1.2 N [facility] Eosinophils/100 leukocytes in Blood by Automated count 5.9 % 0-7 N [facility] Eosinophils [#/volume] in Blood by Automated count 0.8 U 0.0-0.5 Above high normal [facility] Basophils/100 leukocytes in Blood by Automated count 0.8 % 0.4-1 .3 N [facility] Basophils [#/volume] in Blood by Automated count 0.1 U 0.0-0.2 N [facility] NUCLEATED RED BLOOD CELL 0 % [facility] NUCLEATED RED BLOOD CELL# 0 U [facility] Immature granulocytes [Presence] in Blood by Automated count 0-2 N [facility] Immature granulocytes [#/volume] in Blood by Automated count 0.0 U 0-0.[address] [facility] Manual Differential panel - Blood NO [facility] ID Date Data Source [id number] 10/22/2019 05:21:00 PM EDT [facility] Name Value Range Interpretation Code Description Data Julianna rce(s) Supporting Document(s) Prothrombin Time (Patient) 25.2 s 9.6-12.3 Above high normal [facility] INR 2.6 0.9-1.1 Above high normal [facility] THE INR IS OPERATIONALLY DEFINED FOR ALEXIS SH PLASMA FROMPATIENTS STABILIZED ON ORAL ANTICOAGULANTS.ROUTINE ANTICOAGULANT THERAPY 2.0-3.0RECURRENT SYSTEMIC EMBOLISM/HEART VALVE REPLACEMENT 2.5-3.5 aPTT.lupus sensitive (LA screen) 35.7 s 22.7-31.6 Above high nor mal [facility] ID Date Data Source [id number] 10/22/2019 05:35:00 PM EDT [facility] Name Value Range Interpretation Code Description Data Julianna rce(s) Supporting Document(s) Urea nitrogen [Mass/volume] in Serum or Plasma 9 mg/dL 9-23 N [facility] Sodium [Moles/volume] in Serum or Plasma 145 mmol/L 132-146 N [facility] Potassium [Moles/volume] in Serum or Plasma 4.7 mmol/L 3.5-5.[address] [facility] Chloride [Moles/volume] in Serum or Plasma 109 mmol/L 99-109 N [facility] Carbon dioxide, total [Moles/volume] in Serum or Plasma 30 mmol/L 20 -31 [facility] Anion gap in Serum or Plasma 11 mmol/L 8-16 [facility] Glucose [Mass/volume] in Serum or Plasma 98 mg/dL 74-106 [facility] Creatinine 0.7 mg/dL 0.5-1.1 [facility] Glomerular filtration rate/1.73 sq M.pre dicted [Volume Rate/Area] in Serum or Plasma Greater Than 60 ABOVE 60 [facility] Alanine aminotransferase [Enzymatic acti vity/volume] in Serum or Plasma by With P-5'-P 54 U/L 10-49 Above high normal [facility] Aspartate aminotransferase [Enzymatic ac tivity/volume] in Serum or Plasma by With P-5'-P 71 U/L 0-33 Above high normal [facility] Alkaline phosphatase [Enzymatic activity/volume] in Serum or Plasma 143 U/L 45-129 Above high normal [facility] Calcium [Mass/volume] in Serum or Plasma 9.5 mg/dL 8.5-10.[address] [facility] Bilirubin.total [Mass/volume] in Serum or Plasma 0.5 mg/dL 0.3-1.[address] [facility] Albumin [Mass/volume] in Serum or Plasma by Bromocresol purple (BCP) dye binding method 3.6 g/dL 3.2-4.8 [facility] ital Protein [Mass/volume] in Serum or Plasma 8.2 g/dL 5.7-8.[address] [facility] ID Date Data Source [id number] 10/21/2019 01:38:00 PM EDT [facility] Patient Name: [place] MCMANUS : 1950 Sex: F Pt Unit #: [id number] Location:[facility] Provider: Visit Date/Time: 10/21/19 Primary Insurance: MEDICARE [employer] Secondary Insurance: FOR LIFE Intake Vital Signs 10/21/19 13:38 [...] 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 Increase Lisinopril from 10mg to 20mg daily. F/u 2 moonths with BP's from home. GERD. Discontinue Dexilant and start Prontonix 40mg daily. (2) GERD (gastroesophageal reflux disease): Status: Chronic Code(s): K21.9 - Gastro-esophageal reflux disease without esophagitis SNOMED Code(s): 770408188 Category: Medical (3) Essential (primary) hypertension: Status: Chronic Code(s): I10 - Essential (primary) hypertension SNOMED Code(s): 61595373 Category: Medical Orders Instructions: DASH Eating Plan (GEN) Hypertension (GEN) Joy ctronically Signed By: <Electronically signed by Keri Church DO> Date/Time Signed: 10/23/19 1234 Name Value Range Interpretation Code Description Data Julianna rce(s) Supporting Document(s) ID Date Data Source QUANTIFERON TB GOLD TEST 09/10/2019 11:15:50 AM EST eCW1 (Formerly [facility]) Name Value Range Interpretation Code Description Data Julianna rce(s) Supporting Document(s) eCW1 ([facility]) ID Date Data Source HEPATITIS B CORE ANTIBODY IGG 09/10/2019 11:15:50 AM EST eCW 1 (Formerly [facility], [facility]) Name Value Range Interpretation Code Description Data Julianna rce(s) Supporting Document(s) Negative eCW1 ([facility]) ID Date Data Source ANTI JENNY EXTRACTABLE NUCLEAR A 09/10/2019 11:15:50 AM EST eC W1 ([facility]ly [facility], [facility]) Name Value Range Interpretation Code Description Data Julianna rce(s) Supporting Document(s) < 0.2 eCW1 ([facility]) 0.3 eCW1 ([facility]) ID Date Data Source MAXIMUS TITER & PATTERN 09/10/2019 11:15:50 AM EST eCW1 ([facility]) Name Value Range Interpretation Code Description Data Julianna rce(s) Supporting Document(s) Positive eCW1 ([facility]) ID Date Data Source ANTI-SJOGRENS A&B ANTIBODIES 09/10/2019 11:15:50 AM EST eCW1 ([facility]) Name Value Range Interpretation Code Description Data Julianna rce(s) Supporting Document(s) >8.0 eCW1 ([facility]) <0.2 eCW1 ([facility]) ID Date Data Source CYCLIC CITRULLINATED PEPTIDE 09/10/2019 11:15:50 AM EST eCW1 ([facility]ly [facility]) Name Value Range Interpretation Code Description Data Julianna rce(s) Supporting Document(s) 11 eCW1 ([facility]) ID Date Data Source ANTI-CARDIOLIPIN ANTIBODIES 09/10/2019 11:15:50 AM EST eCW1 ([facility]) Name Value Range Interpretation Code Description Data Julianna rce(s) Supporting Document(s) <9 eCW1 ([facility]) <9 eCW1 ([facility]) 15 eCW1 ([facility]) ID Date Data Source ANTI DOUBLE STRAND DNA ZACK 09/10/2019 11:15:50 AM EST eCW1 ( [facility]) Name Value Range Interpretation Code Description Data Julianna rce(s) Supporting Document(s) eCW1 ([facility]) ID Date Data Source BETA-2 GLYCOPROTEIN 1 ZACK ANDRIY 09/10/2019 11:15:50 AM EST eCW 1 ([facility]) Name Value Range Interpretation Code Description Data Julianna rce(s) Supporting Document(s) <9 eCW1 ([facility]) <9 eCW1 ([facility]) <9 eCW1 ([facility]) ID Date Data Source [id number] 09/08/2019 03:55:00 PM EST [facility] [address] [place] [address] [phone] NAME SEX PT STATUS ACCOUNT NUMBER [place] MCMAN[place] REG REF [id number] ORDERING PHYSICIAN LOCATION MEDICAL RECORD NO. CORY BAGLEY MD [facility] [id number] ATTENDING PHYSICIAN DATE OF DATE OF EXAM/TIME [...] Reported By Pasha Uribe MD on 09/08/19 501 Signed By Pasha Uribe MD on 09/08/19 155 Date Time CC: Pasha Uribe MD; Keri Church DO Techn: CARRC Trans Dt/Tm: Trans by: DT Prt Dt/Tm: [phone]: Total DLP = 0.00 mGy-cm Fluoroscopy Time (in secs): Name Value Range Interpretation Code Description Data Julianna rce(s) Supporting Document(s) ID Date Data Source [id number] 09/08/2019 03:17:00 PM [facility] [address] [place] [address] [phone] NAME SEX PT STATUS ACCOUNT NUMBER [place] REG REF [id number] ORDERING PHYSICIAN LOCATION MEDICAL RECORD NO. CORY BAGLEY MD RAD [id number] ATTENDING PHYSICIAN DATE OF DATE OF EXAM/TIME [...] effusion. Reported By Pasha Uribe MD on 09/08/19 1517 Signed By Pasha Uribe MD on 09/08/19 1518 Date Time CC: Pasha Uribe MD; Keri Church DO Techn: CARRC Trans Dt/Tm: Trans by: DT Prt Dt/Tm: : Total DLP = 0.00 mGy-cm Fluoroscopy Time (in secs): Name Value Range Interpretation Code Description Data Julianna rce(s) Supporting Document(s) ID Date Data Source [id number] 09/08/2019 03:16:00 PM [facility] [address] [place] [address] [phone] NAME SEX PT STATUS ACCOUNT NUMBER [place] MCM[place] REG REF [id number] ORDERING PHYSICIAN LOCATION MEDICAL RECORD NO. CORY BAGLEY MD RAD [id number] ATTENDING PHYSICIAN DATE OF DATE OF EXAM/TIME [...] Trans Dt/Tm: Trans by: DT Prt Dt/Tm: [id number]: Total DLP = 0.00 mGy-cm Fluoroscopy Time (in secs): Name Value Range Interpretation Code Description Data Julianna rce(s) Supporting Document(s) ID Date Data Source [id number] 09/08/2019 03:13:00 PM [facility] [address] [facility] [place] [address] [phone] NAME SEX PT STATUS ACCOUNT NUMBER [place] MCM[place] REG REF [id number] ORDERING PHYSICIAN LOCATION MEDICAL RECORD NO. CORY BAGLEY MD RAD [id number] ATTENDING PHYSICIAN DATE OF DATE OF EXAM/TIME [...] changes. Reported By Pasha Uribe MD on 09/08/191512 Signed By Pasha Uribe MD on 09/08/191515 Date Time CC: Pasha Uribe MD; Keri Church DO Techn: CARRC Trans Dt/Tm: Trans by: DT Prt Dt/Tm: [phone]: Total DLP = 0.00 mGy-cm Fluoroscopy Time (in secs): Name Value Range Interpretation Code Description Data Julianna rce(s) Supporting Document(s) ID Date Data Source [id number] 09/08/2019 03:10:00 PM [facility] [address] [place] [id number] [phone] NAME SEX PT STATUS ACCOUNT NUMBER [place] MCM[place] REG REF [id number] ORDERING PHYSICIAN LOCATION MEDICAL RECORD NO. CORY BAGLEY MD RAD [id number] ATTENDING PHYSICIAN DATE OF DATE OF EXAM/TIME [...] rce(s) Supporting Document(s) ID Date Data Source [id number] 09/08/2019 03:08:00 PM EST [facility] [address] [place] [address] [phone] NAME SEX PT STATUS ACCOUNT NUMBER [place] MCM[place] REG REF [id number] ORDERING PHYSICIAN LOCATION MEDICAL RECORD NO. CORY BAGLEY MD RAD [id number] ATTENDING PHYSICIAN DATE OF DATE OF EXAM/TIME [...] Trans Dt/Tm: Trans by: DT Prt Dt/Tm: 19: Total DLP = 0.00 mGy-cm Fluoroscopy Time (in secs): Name Value Range Interpretation Code Description Data Julianna rce(s) Supporting Document(s) ID Date Data Source TOTAL PROTEIN,RANDOM URINE 09/08/2019 09:25:32 AM EST eCW1 ( [facility]ly [facility]) Name Value Range Interpretation Code Description Data Julianna rce(s) Supporting Document(s) 57.0 eCW1 ([facility]) ID Date Data Source CREATININE,RANDOM URINE 09/08/2019 09:25:32 AM EST eCW1 ([facility]) Name Value Range Interpretation Code Description Data Julianna rce(s) Supporting Document(s) 155.0 eCW1 ([facility]) ID Date Data Source UA URINALYSIS 09/08/2019 09:25:32 AM EST eCW1 ([facility]) Name Value Range Interpretation Code Description Data Julianna rce(s) Supporting Document(s) eCW1 ([facility]) ID Date Data Source RHEUMATOID FACTOR QUANT 09/08/2019 09:25:32 AM EST eCW1 ([facility]) Name Value Range Interpretation Code Description Data Julianna rce(s) Supporting Document(s) 101.0 eCW1 ([facility]) ID Date Data Source HEPATITIS C ANTIBODY INDEX 09/08/2019 09:25:32 AM EST eCW1 ( [facility]) Name Value Range Interpretation Code Description Data Julianna rce(s) Supporting Document(s) < 0.0 eCW1 ([facility]) ID Date Data Source HEPATITIS B SURFACE ANTIGEN 09/08/2019 09:25:32 AM EST eCW1 ([facility]) Name Value Range Interpretation Code Description Data Julianna rce(s) Supporting Document(s) NEGATIVE eCW1 ([facility]) ID Date Data Source ERYTHROCYTE SEDIMENTATION RATE 09/08/2019 09:25:32 AM EST eC W1 ([facility]) Name Value Range Interpretation Code Description Data Julianna rce(s) Supporting Document(s) 13 eCW1 ([facility]) ID Date Data Source C REACTIVE PROTEIN QUANTITATIV (At [facility]) 09/08/2019 09:25 :32 AM EST eCW1 ([facility]) Name Value Range Interpretation Code Description Data Julianna rce(s) Supporting Document(s) 0.57 eCW1 ([facility]) ID Date Data Source Comprehensive Metabolic Profile (CMP) 09/08/2019 09:25:32 AM EST eCW1 ([facility]) Name Value Range Interpretation Code Description Data Julianna rce(s) Supporting Document(s) 109 eCW1 ([facility] 10 eCW1 ([facility]) 4.1 eCW1 ([facility]) 142 eCW1 ([facility]) 0.82 eCW1 ([facility]) > 60.0 eCW1 ([facility]) 9.3 eCW1 ([facility]) 29 eCW1 ([facility]) 48 eCW1 ([facility]) 110 eCW1 ([facility]) 8.0 eCW1 ([facility]) 117 eCW1 ([facility]) 0.7 eCW1 ([facility]) 43 eCW1 ([facility]) 0.82 eCW1 ([facility]) 3.6 eCW1 ([facility]) ID Date Data Source CBC with Differential 09/08/2019 09:25:32 AM EST eCW1 ([facility]) Name Value Range Interpretation Code Description Data Julianna rce(s) Supporting Document(s) 5.02 eCW1 ([facility]) 9.0 eCW1 ([facility]) 94.6 eCW1 ([facility]) 47.5 eCW1 ([facility]) 30.9 eCW1 ([facility]) 15.5 eCW1 ([facility]) 47.0 eCW1 ([facility]) 15.9 eCW1 ([facility]) 32.6 eCW1 ([facility]) 305 eCW1 ([facility]) 32.2 eCW1 ([facility]) 0.9 eCW1 ([facility]) 11.2 eCW1 ([facility]) 2.9 eCW1 ([facility]) 8.6 eCW1 ([facility]) 0.8 eCW1 ([facility]) 0.1 eCW1 ([facility]) 1.0 eCW1 ([facility]) 4.2 eCW1 ([facility]) ID Date Data Source COMPLEMENT C4 09/08/2019 09:25:32 AM EST eCW1 ([facility]) Name Value Range Interpretation Code Description Data Julianna rce(s) Supporting Document(s) 22 eCW1 ([facility]) ID Date Data Source COMPLEMENT C3 09/08/2019 09:25:32 AM EST eCW1 ([facility]) Name Value Range Interpretation Code Description Data Julianna rce(s) Supporting Document(s) 118 eCW1 ([facility]) Procedure Social History Code Duration Value Status Description Data Source(s ) Smoking 09/07/2020 12:00:00 AM EST Patient is a former smoker completed Patient is a former smoker [facility] ([facility]) Smoking 08/10/2020 09:20:03 AM EST Never smoked tobacco (findi ng) completed Never smoked tobacco (finding) [place] (Andrew Gerber MD [facility]) 06/27/2020 06:24:40 PM EST Former smoker completed Former smoker [facility] 06/27/2020 06:24:40 PM EST Former smoker completed Former smoker [facility] 06/27/2020 06:24:40 PM EST Former smoker completed Former smoker [facility] Smoking 06/27/2020 06:24:00 PM EST Former smoker completed Former smoker [facility] Smoking 06/27/2020 06:24:00 PM EST Former smoker completed Former smoker [facility] Smoking 06/27/2020 06:24:00 PM EST Former smoker completed Former smoker [facility] 06/15/2020 12:09:00 PM EST Former smoker completed Former smoker [facility] Smoking 06/15/2020 12:09:00 PM EST Former smoker completed Former smoker [facility] 06/15/2020 12:09:00 PM EST Former smoker completed Former smoker [facility] Smoking 06/15/2020 12:09:00 PM EST Former smoker completed Former smoker [facility] Smoking 05/02/2020 10:32:00 AM EDT Former smoker completed Former smoker [facility] 05/02/2020 09:32:01 AM EDT Former smoker completed Former smoker [facility] 05/02/2020 09:32:01 AM EDT Former smoker completed Former smoker [facility] Smoking 05/02/2020 09:32:00 AM EDT Former smoker completed Former smoker [facility] Smoking 03/26/2020 01:48:11 PM EDT Never smoked tobacco (findi ng) completed Never smoked tobacco (finding) [place] (Andrew Gerber MD [facility]) 03/08/2020 10:24:52 AM EDT Former smoker completed Former smoker [facility] 03/08/2020 10:24:52 AM EDT Former smoker completed Former smoker [facility] Smoking 03/08/2020 10:24:00 AM EDT Former smoker completed Former smoker [facility] Smoking 03/08/2020 10:24:00 AM EDT Former smoker completed Former smoker [facility] 12/16/2019 04:15:19 PM EDT Former smoker completed Former smoker [facility] 12/16/2019 04:15:19 PM EDT Former smoker completed Former smoker [facility] 12/16/2019 04:15:19 PM EDT Former smoker completed Former smoker [facility] 12/16/2019 04:15:19 PM EDT Former smoker completed Former smoker [facility] Smoking 12/16/2019 04:15:00 PM EDT Former smoker completed Former smoker [facility] Smoking 12/16/2019 04:15:00 PM EDT Former smoker completed Former smoker [facility] 11/25/2019 09:46:07 AM EDT Former smoker completed Former smoker [facility] 11/25/2019 09:46:07 AM EDT Former smoker completed Former smoker [facility] 11/25/2019 09:46:07 AM EDT Former smoker completed Former smoker [facility] 11/25/2019 09:46:07 AM EDT Former smoker completed Former smoker [facility] 11/25/2019 09:46:07 AM EDT Former smoker completed Former smoker [facility] Smoking 11/25/2019 09:46:00 AM EDT Former smoker completed Former smoker [facility] 10/28/2019 11:03:09 AM EDT Former smoker completed Former smoker [facility] 10/28/2019 11:03:09 AM EDT Former smoker completed Former smoker [facility] 10/28/2019 11:03:09 AM EDT Former smoker completed Former smoker [facility] 10/28/2019 11:03:09 AM EDT Former smoker completed Former smoker [facility] 10/28/2019 11:03:09 AM EDT Former smoker completed Former smoker [facility] 10/28/2019 11:03:09 AM EDT Former smoker completed Former smoker [facility] Smoking 10/28/2019 11:03:00 AM EDT Former smoker completed Former smoker [facility] 10/22/2019 04:49:23 PM EDT Former smoker completed Former smoker [facility] 10/22/2019 04:49:23 PM EDT Former smoker completed Former smoker [facility] 10/22/2019 04:49:23 PM EDT Former smoker completed Former smoker [facility] 10/22/2019 04:49:23 PM EDT Former smoker completed Former smoker [facility] 10/22/2019 04:49:23 PM EDT Former smoker completed Former smoker [facility] 10/22/2019 04:49:23 PM EDT Former smoker completed Former smoker [facility] 10/22/2019 04:49:23 PM EDT Former smoker completed Former smoker [facility] Smoking 10/22/2019 04:49:00 PM EDT Former smoker completed Former smoker [facility] 10/21/2019 01:41:29 PM EDT Former smoker completed Former smoker [facility] 10/21/2019 01:41:29 PM EDT Former smoker completed Former smoker [facility] 10/21/2019 01:41:29 PM EDT Former smoker completed Former smoker [facility] 10/21/2019 01:41:29 PM EDT Former smoker completed Former smoker [facility] 10/21/2019 01:41:29 PM EDT Former smoker completed Former smoker [facility] 10/21/2019 01:41:29 PM EDT Former smoker completed Former smoker [facility] 10/21/2019 01:41:29 PM EDT Former smoker completed Former smoker [facility] 10/21/2019 01:41:29 PM EDT Former smoker completed Former smoker [facility] Smoking 10/21/2019 01:41:00 PM EDT Former smoker completed Former smoker [facility] Smoking 09/30/2019 12:00:00 AM EST UNK completed eCW1 ([facility]) Smoking 09/30/2019 12:00:00 AM EST UNK completed eCW1 ([facility]) Smoking 09/30/2019 12:00:00 AM EST UNK completed eCW1 ([facility]) Vital Signs ID Date Data Source [...] Body height 58 [in_i] 58 [in_i] [facility] ([facility]) 4'10" Heart rate 57 /min 57 /min [facility] ([facility]) Diastolic blood pressure 80 mm[Hg] 80 mm[Hg] [facility] ([facility]) Systolic blood pressure 120 mm[Hg] 120 mm[Hg] M EDENT ([facility]) Diastolic blood pressure 68 mm[Hg] 68 mm[Hg] eCW1 ([facility]) Systolic blood pressure 122 mm[Hg] 122 mm[Hg] e CW1 ([facility]) Body temperature 98.7 [degF] 98.7 [degF] eCW1 ( [facility]) Respiratory rate 18 /min 18 /min eCW1 ([facility]) Heart rate /min eCW1 ([facility]) Body mass index (BMI) [Ratio] 32.81 kg/m2 32.81 kg/m2 eCW1 ([facility]) Body height 58 [in_us] 58 [in_us] eCW1 ([facility]) Body weight Measured 157.0 [lb_av] 157.0 [lb_av ] eCW1 ([facility]) Diastolic blood pressure 84 mm[Hg] 84 mm[Hg] eCW1 ([facility]) Systolic blood pressure 126 mm[Hg] 126 mm[Hg] e CW1 ([facility]) Body temperature 98.9 [degF] 98.9 [degF] eCW1 ( [facility]) Respiratory rate 18 /min 18 /min eCW1 ([facility]) Heart rate 50 /min 50 /min eCW1 ([facility]) Body mass index (BMI) [Ratio] 32.77 kg/m2 32.77 kg/m2 eCW1 ([facility]) Body height 58 [in_i] 58 [in_i] eCW1 ([facility]) Body weight 71.1 kg 71.1 kg eCW1 ([facility]) Body weight 156.8 [lb_av] 156.8 [lb_av] eCW1 ([facility]) Patient Treatment Plan of Care Planned Activity Planned Date Details Description Data Source (s) moxifloxacin 5 MG/ML Ophthalmic Solution 09/08/2020 12:00:00 AM EST [place] (Andrew Gerber MD [facility]) difluprednate 0.5 MG/ML Ophthalmic Suspension [Durezol ] 09/08/2020 12:00:00 AM EST [place] (Andrew Gerber MD [facility]) nepafenac 3 MG/ML Ophthalmic Suspension [Ilevro] 09/08/2020 12:00:0 0 AM EST [place] (Andrew Gerber MD [facility]) moxifloxacin 5 MG/ML Ophthalmic Solution 09/08/2020 12:00:00 AM EST [place] (Andrew Gerber MD [facility]) BromSite 0.075% Ophthalmic Solution 09/08/2020 12:00:00 AM EST [place] (Andrew Gerber MD [facility]) Inveltys 1% Ophthalmic Suspension 09/08/2020 12:00:00 AM EST [place] (Andrew Gerber MD [facility]) moxifloxacin 5 MG/ML Ophthalmic Solution 09/08/2020 12:00:00 AM AGUSTIN MONTERO (Andrew Gerber MD [facility])
[2020-09-23 10:27] VITALS: BP 189/87
--- NOTE | 2020-09-24 10:10 | RO ---
OPERATIVE NOTE DATE OF OPERATION: 09/23/2020 PREOPERATIVE DIAGNOSIS: 1. Visually significant nuclear sclerotic cataract, left eye. POSTOPERATIVE DIAGNOSIS: 1. Visually significant nuclear sclerotic cataract, left eye. PROCEDURE: 1. Cataract extraction with use of phacoemulsification, and placement of intraocular lens, AU00T0, 21.5 D, left eye. SURGEON: Reilly Reddy DO ANESTHESIA: Local (Omidria with MAC) COMPLICATIONS: None POSTOPERATIVE CONDITION: Stable INDICATIONS FOR SURGERY: 1. Blurred vision affecting patient's activities of daily living. DESCRIPTION OF PROCEDURE: The patient was seen in the preoperative area and properly identified. The correct operative eye was identified and marked. The patient received topical anesthetic, antibiotics, and topical dilating drops. The patient was then transferred to the operating room. The correct side was re-identified and a time-out was performed. The eye was prepped and draped in a sterile fashion. The eyelids were isolated with Tegaderm tape and the lids were held open with an adjustable speculum. A 1.0mm paracentesis incision was made. Omidria was then injected into the anterior chamber. Viscoelastic was then injected into the anterior chamber through the paracentesis. Using a 2.4mm sharp-tipped keratome, the anterior chamber was entered via a temporal clear cornea incision. A continuous curvilinear capsulorrhexis was created with Utrata forceps. Hydrodissection was performed with BSS on a blunt cannula until the nucleus was able to rotate freely. The crystalline lens was phacoemulsified and aspirated. Irrigation/aspiration was used to remove the cortical material Cohesive viscoelastic was placed into the capsular bag to deepen it. The implant was placed into the capsular bag and allowed to unfold. Placement was confirmed by visualizing the anterior capsulorrhexis. Irrigation/aspiration was used to remove the viscoelastic. The clear corneal incision was hydrated with BSS on a blunt cannula. The lens was well positioned. Intracameral antibiotic was injected into the anterior chamber. The incisions were then tested for leaks and found to be negative. The eye was then palpated for appropriate pressure and adjusted accordingly with BSS. The eyelid speculum was then carefully removed. A shield was placed over the eye. The patient tolerated the procedure well and was discharge to the recovery unit in a stable condition. AGUSTO
== END 2020-09-23 11:25 | disposition home or self-care (01) ==
LOC: M SDC 08:08
PROVIDERS: ATTEND Ophthalmology
DX: H25.12 Age-related nuclear cataract, left eye (principal); M32.9 Systemic lupus erythematosus, unspecified; M79.7 Fibromyalgia; M05.9 Rheumatoid arthritis with rheumatoid factor, unspecified; I10 Essential (primary) hypertension; M12.9 Arthropathy, unspecified; M35.00 Sjogren syndrome, unspecified; D68.61 Antiphospholipid syndrome; R73.03 Prediabetes; Z90.81 Acquired absence of spleen; Z86.718 Personal history of other venous thrombosis and embolism; I69.998 Other sequelae following unspecified cerebrovascular disease; Z90.710 Acquired absence of both cervix and uterus; Z78.0 Asymptomatic menopausal state; J45.909 Unspecified asthma, uncomplicated; R06.83 Snoring; Z79.899 Other long term (current) drug therapy; Z79.01 Long term (current) use of anticoagulants
CPT/HCPCS: 66984; J1097; J2250; J3010; V2632

== ENCOUNTER → 2021-03-10 | Outpatient (CLI) | payer MEDICARE, OTHER ==
[~2021-03-10] MED LIST changes: +AMLO1TAB25 PO; -BSS IRR 500ML/OMIDRIA 4ML IRR BAG (OR ONLY) As Ordered ONE; -CEFUROXIME 1MG/0.1ML INTRACAMERAL INJ As Ordered ONE; -DUOVISC (0.50ML VISCOAT/0.55ML PROVISC) OPHTH KIT As Ordered ONE; +GABA-283 PO; -GABA-845 PO; -MIDAZOLAM INJ 2MG/2ML VIAL (J2250 PER 1MG) As Ordered ONE; -OFLOXACIN 0.3 % (OCUFLOX) OPTH SOL 5ML OS ONE; -PHENYLEPHRINE 2.5% OPHTH SOL 2ML OS ONE; -POVIDONE-IODINE 5% OPHTH PREP SOL 30ML As Ordered ONE; -PROPARACAINE 0.5% OPHTH SOL 15ML OS ONE; -TROPICAMIDE 1% OPHTH SOLN 2ML OS ONE; -fentaNYL 100 MCG/2 ML INJECTION (J3010) As Ordered ONE
== END ==
LOC: M LABSMTC 11:54
PROVIDERS: ATTEND Anesthesiology
DX: Z01.812 Encounter for preprocedural laboratory examination (principal); Z20.822 Contact with and (suspected) exposure to COVID-19

== ENCOUNTER 2021-03-14 07:16 | Day surgery (SDC) | payer MEDICARE, OTHER ==
[~2021-03-14] VITALS: Ht 147.3 cm; Wt 69.4 kg
[~2021-03-14 07:16] MED LIST changes: +NS 1,000 ML IV ONE
--- NOTE | 2021-03-14 08:13 | ROOR ---
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 Procedure: Pre-Anesthesia Assessment: - The heart rate, respiratory rate, oxygen saturations, blood pressure, adequacy of pulmonary ventilation, and response to care were monitored throughout the procedure. The Endoscope was introduced through the mouth, and advanced to the second part of duodenum. The upper GI endoscopy was accomplished without difficulty. The patient tolerated the procedure well. Findings: Grade II varices were found in the mid esophagus. They were medium in size. No other significant abnormalities were identified in a careful examination of the stomach. The exam of the duodenum was otherwise normal. Impression: - Grade II esophageal varices. - No specimens collected. - The examination was otherwise normal. Recommendation: - Patient has a contact number available for emergencies. The signs and symptoms of potential delayed complications were discussed with the patient. Return to normal activities tomorrow. Written discharge instructions were provided to the patient. - Resume previous diet. - Discharge patient to home. - Continue present medications. - Resume Coumadin (warfarin) at prior dose today. - Repeat upper endoscopy in 6 months for surveillance. - Return to referring physician. - The findings and recommendations were discussed with the patient's family. Procedure Code(s): --- Professional --- 01171, Esophagogastroduodenoscopy, flexible, transoral; diagnostic, including collection of specimen(s) by brushing or washing, when performed (separate procedure) Diagnosis Code(s): --- Professional --- K74.60, Unspecified cirrhosis of liver I85.10, Secondary esophageal varices without bleeding CPT copyright 2019 [employer]. All rights reserved. The codes documented in this report are preliminary and upon missile mechanic review may be revised to meet current compliance requirements. Jori Reddy MD Jori Reddy MD 03/14/2021 8:13:38 AM Electronically signed by Jori Reddy MD Number of Addenda: 0 Note Initiated On: 03/14/2021 7:59 AM Estimated Blood Loss: Estimated blood loss: none.
[2021-03-14 08:30] VITALS: BP 174/74
[2021-03-14] MEDS ORDERED: propofoL 200 MG/20 ML VIAL As Ordered ONE (08:58)
[2021-03-14] MEDS ORDERED: LIDOCAINE 2% 100MG/5ML SDV (FOR ANES.) As Ordered ONE (08:58)
== END 2021-03-14 08:45 | disposition home or self-care (01) ==
LOC: M OPP 07:16
PROVIDERS: ATTEND Internal Medicine Gastroenterology
DX: I85.10 Secondary esophageal varices without bleeding (principal); K74.60 Unspecified cirrhosis of liver; K76.6 Portal hypertension; Z79.1 Long term (current) use of non-steroidal anti-inflammatories (NSAID); Z79.899 Other long term (current) drug therapy; Z88.2 Allergy status to sulfonamides; Z88.5 Allergy status to narcotic agent; Z88.8 Allergy status to other drugs, medicaments and biological substances

== ENCOUNTER → 2021-06-09 | Outpatient (REF) | payer MEDICARE, OTHER ==
[~2021-06-09] MED LIST changes: -MAGN400T3 PO; +MAGN400T33 PO; -NS 1,000 ML IV ONE
[2021-06-09 17:16] LABS: APPEARANCE, URINE HAZY (CLEAR); BACTERIA, URINE AUTO NEGATIVE (NEGATIVE); BILIRUBIN, URINE AUTO NEGATIVE (NEGATIVE); BLOOD, URINE BLOOD NEGATIVE (NEGATIVE); CALCIUM OXALATE CRYSTALS LARGE; COLOR, URINE YELLOW (YELLOW); GLUCOSE, URINE (UA) AUTO NEGATIVE (NEGATIVE); KETONE, URINE AUTO NEGATIVE (NEGATIVE); LEUKOCYTE ESTERASE, URINE AUTO NEGATIVE (NEGATIVE); MUCUS, URINE SMALL (NEGATIVE); NITRITE, URINE AUTO NEGATIVE (NEGATIVE); PROTEIN, URINE AUTO NEGATIVE (NEGATIVE); RBC, URINE AUTO 0 /HPF (0-3); SPECIFIC GRAVITY URINE AUTO 1.012 (1.002-1.035); SQUAMOUS EPITHELIAL CELL UR AU 0 /HPF (0-6); UROBILINOGEN, URINE AUTO 0.2 mg/dL (0.0-2.0); WBC, URINE AUTO 2 /HPF (0-3)
[2021-06-09 17:30] LABS: TOTAL PROTEIN,RANDOM URINE 56.3 MG/DL (0.0-12.0)
== END ==
LOC: M SFHCRHEU 11:52
PROVIDERS: ATTEND Internal Medicine
DX: R76.8 Other specified abnormal immunological findings in serum (principal)
CPT/HCPCS: 81001; 82570; 84156; G0463

== ENCOUNTER → 2022-05-22 | Outpatient (REF) | payer MEDICARE, OTHER ==
[~2022-05-22] MED LIST changes: +AMLO1TAB24 PO; +AZAT50TA37 PO; +FEXO-117 PO; -FEXO180T58 PO
[2022-05-22 17:54] LABS: TOTAL PROTEIN,RANDOM URINE 21.3 MG/DL (0.0-12.0)
[2022-05-22 19:53] LABS: APPEARANCE, URINE MANUAL HAZY (CLEAR); BILIRUBIN, URINE MANUAL NEGATIVE (NEGATIVE); COLOR, URINE MANUAL YELLOW (YELLOW); GLUCOSE, URINE (UA) MANUAL NEGATIVE (NEGATIVE); KETONE, URINE MANUAL NEGATIVE (NEGATIVE); PROTEIN, URINE MANUAL NEGATIVE (NEGATIVE); SPECIFIC GRAVITY,URINE MANUAL 1.015 (1.002-1.035); UROBILINOGEN, URINE MANUAL NORMAL (NORMAL)
[2022-05-22 19:54] LABS: BLOOD URINE MANUAL NEGATIVE (NEGATIVE); LEUKOCYTE ESTERASE, URINE MAN POSITIVE (NEGATIVE); NITRITE, URINE MANUAL POSITIVE (NEGATIVE)
[2022-05-22 20:56] LABS: BACTERIA, URINE LARGE AMOUNT; HYALINE CAST, URINE NONE SEEN /lpf (0-1); RBC, URINE NONE SEEN /hpf (0-3); SQUAMOUS EPITHELIAL CELL URINE SMALL AMOUNT /hpf (SMALL AMT)
== END ==
LOC: M SFHCRHEU 13:11
PROVIDERS: ATTEND Internal Medicine
DX: M32.9 Systemic lupus erythematosus, unspecified (principal); R77.8 Other specified abnormalities of plasma proteins